=== PATIENT | female | born 1935 | race Caucasian/White ===

== ENCOUNTER 2018-06-13 16:00 | Inpatient (IN) | payer MEDICAID, MEDICARE ==
--- NOTE | 2018-06-13 17:07 | PCM.HP ---
H&P History of Present Illness - General Date of Service: 06/13/18 Source of Information: Patient, Other - History of Present Illness Initial Comments - Free Text/Narative: Patient presented by [facility] to ER for failure to thrive. commissary worker had been doing a vulnerable adult case with her. She been living with her grandchildren who are unable to take care of her or transport. She is basically sitting on the couch all day. Numerous scratches to her arms for a puppy that been playing with her. Doesn't sound like they're getting her up to toilet very much. She is getting maybe one meal a day with a meals to [employer] type program. She doesn't really have much for two complaints currently. She doesn't have any pain anywhere. She is on chronic Coumadin for history of DVT she has not had a recent INR the past couple months. She do basic chemistry in the ER which was normal. Past medical history skin cancer, shoulder pain, restless legs, vitreous detachment, peripheral neuropathy, obesity, osteoporosis, goiter, melanoma, ovarian cancer, impaired fasting glucose, DVT, gout, GERD, hypertension, peripheral edema, mild cognitive impairment, mild chronic kidney disease, diastolic heart failure, anxiety and depression, chronic anemia. Medications: Coumadin, nystatin powder, Zoloft, Requip, when necessary nitroglycerin, Toprol, Neurontin, Lasix, Pepcid, Tylenol, Payton lax, nocturnal oxygen. Allergies: She is intolerant to baclofen social history:she does not drink alcohol, remote smoking history, she'd boyfriend at [facility] then he -because of this she is not want return to long term there, she is a [id number] and grandchild locally here that she has some contact with. There is a sonFargo she doesn't have much contact with. Family history: Noncontributory Review of systems: Denies any headache or neck pain. Did have a recent fall but denies hitting her head or neck. Any significant trauma. Denies vision or hearing change that's new. Denies any new memory or mood changes, mild chronic depression. Denies chest pain or dyspnea. Denies abdominal pain. States urine and stools are normal. Endorses mild stable chronic peripheral edema. Chronic scratches to arms per HPI. Blood pressure 150/74, temperature 37, pulse 82, oxygen saturation 97% on room air. Alert and oriented female, pleasant and cooperative in no acute distress. Head is eight rheumatic or mucosa pink and moist. Heart and lungs clear to auscultation abdomen soft nontender. No gross pressure ulcers to back or buttock. 1+ pitting edema bilaterally. #1. Failure to thrive and vulnerable adult. She needs to be removed from this unsafe home environment. County and social economist been contacted. They're working on placement. Given limited mobility this would be long term most likely. We'll consult physical therapy regarding gait and ADLs. She otherwise appears largely cognitively intact. #2 She has a mildly super therapeutic INR which has not been monitored regularly secondary to above. We will hold at least next couple doses and monitor this. #3 Multiple scratches appear clean, wound cares per RN; no sign of pressure ulcer currently. Knees Pain Score (Numeric/FACES): 4 - Related Data Allergies/Adverse Reactions: Allergies Allergy/AdvReac Type Severity Reaction Status Date / Time baclofen AdvReac Intermediate Confusion Verified 06/13/18 15:06 Home Medications: Home Meds Gabapentin 300 mg PO BEDTIME 09/29/14 [History] Nitroglycerin [Nitrostat] 0.4 mg SL ASDIRECTED PRN 09/29/14 [History] Sertraline [Zoloft] 100 mg PO DAILY 09/29/14 [History] rOPINIRole HCl [Requip] 0.5 mg PO BEDTIME 09/30/14 [History] Calcium Carbonate [Tums Extra Strength] 750 mg PO TID PRN 03/02/16 [History] Gabapentin [Neurontin] 100 mg PO 08,12 03/02/16 [History] Docusate Sodium [Colace] 100 mg PO DAILY 09/07/17 [History] Furosemide 20 mg PO DAILY 09/07/17 [History] Metoprolol Succinate 25 mg PO DAILY 09/07/17 [History] Polyethylene Glycol 3350 [MiraLAX] 17 gm PO DAILY PRN 09/07/17 [History] Acetaminophen [Tylenol] 650 mg PO Q6H #0 09/11/17 [Rx] Sennosides/Docusate Sodium [Senna S Tablet] 1 each PO DAILY #30 tablet 09/11/17 [Rx] Famotidine 20 mg PO DAILY 06/13/18 [History] Nystatin [Nyamyc] 1 gm TOP BID 06/13/18 [History] Nystatin [Nystop] 1 applic TP BID PRN 06/13/18 [History] Warfarin Sodium [Jantoven] 5 mg PO ASDIRECTED 06/13/18 [History] Past Medical History HEENT History: Reports: Cataract, Impaired Vision Other HEENT History: bilat posterior vitreous detachment Cardiovascular History: Reports: Blood Clots/VTE/DVT, Heart Failure, Hypertension Other Cardiovascular History: 3+ pitting edema to lower legs and feet Respiratory History: Reports: COPD, Other (See Below) Other Respiratory History: Home O2 wears 1L/nc during the day and 3L/nc at night Gastrointestinal History: Reports: GERD Genitourinary History: Reports: Other (See Below) Other Genitourinary History: CKD STAGE III 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: Musculoskeletal History: Reports: Arthritis, Back Pain, Chronic, Gout, Osteoporosis Neurological History: Reports: Neuropathy, Peripheral, Other (See Below) Other Neuro History: Memory loss, cognitive defecit Psychiatric History: Reports: Anxiety, Depression Endocrine/Metabolic History: Reports: Obesity/BMI 30+, Other (See Below) Other Endocrine/Metabolic History: Non toxic multinodular goiter Hematologic History: Reports: Anemia Other Hematologic History: DVT Oncologic (Cancer) History: Reports: Malignant Melanoma, Ovarian, Squamous Cell Carcinoma Dermatologic History: Reports: Cellulitis, Other (See Below) Other Dermatologic History: Dermatochalasia, melanoma, squamous cell skin ca - Infectious Disease History Infectious Disease History: Reports: Chicken Pox, Measles, Mumps Other Infectious Disease History: E coli in 2011 - Past Surgical History HEENT Surgical History: Reports: Cataract Surgery GI Surgical History: Reports: Appendectomy, Cholecystectomy Musculoskeletal Surgical History: Reports: None Dermatological Surgical History: Reports: Skin Biopsy Social & Family History - Family History Family Medical History: Noncontributory Oncologic: Reports: Lung - Caffeine Use Caffeine Use: Reports: None H&P Review of Systems - Review of Systems: Review Of Systems: See Below Exam - Exam Exam: See Below - Vital Signs Vital Signs: Last Vital Signs Temp 36.9 C 06/13/18 16:49 Pulse 82 06/13/18 16:49 Resp 20 06/13/18 16:49 BP 150/74 H 06/13/18 16:49 Pulse Ox 97 06/13/18 16:49 Weight: 71.668 kg - Patient Data Result Diagrams: 06/13/18 14:48 Problem List Initiated/Reviewed/Updated: Yes Orders Last 24hrs: Active Orders 24 hr Category Date Time Status ALBUMIN [CHEM] Routine Lab 06/13/18 16:56 Ordered CBC WITH AUTO DIFF [HEME] Routine Lab 06/13/18 16:56 Ordered INR,PT,PROTHROMBIN TIME [COAG] Routine Lab 06/13/18 16:56 Ordered SEDIMENTATION RATE AUTO [HEME] Routine Lab 06/13/18 16:56 Ordered TSH ULTRASENSITIVE [CHEM] Routine Lab 06/13/18 16:56 Ordered VITAMIN B12 [REF] Routine Lab 06/13/18 16:56 Ordered
[2018-06-13] MEDS ORDERED: Miconazole 2% Top Powder 45 GM Container TOP PRN (19:23)
[2018-06-13] MEDS ORDERED: Polyethylene Glycol 3350 Powder 17 GM Packet PO PRN (19:24)
[2018-06-13] MEDS ORDERED: Warfarin 5 MG Tab PO SCH (19:30)
[2018-06-13] MEDS ORDERED: rOPINIRole 0.5 MG Tab PO SCH ×2 (20:00)
[2018-06-13] MEDS ORDERED: Gabapentin 300 MG Cap PO SCH (20:00)
[2018-06-13] MEDS: Acetaminophen 325 MG Tab PO SCH (20:48)
[2018-06-13] MEDS: Miconazole 2% Top Powder 45 GM Container TOP SCH (20:48)
[2018-06-13] MEDS: ROPINIROLE 0.5 MG PO SCH (20:48)
[2018-06-14] MEDS: Acetaminophen 325 MG Tab PO SCH ×4 (01:26→21:37)
[2018-06-14] MEDS ORDERED: Gabapentin 100 MG Cap PO SCH (08:00)
[2018-06-14] MEDS: [UNRECOGNIZED DRUG - OTHER] PO SCH (08:16)
[2018-06-14] MEDS: Docusate Sodium 100 MG Cap PO SCH (08:17)
[2018-06-14] MEDS: SERTRALINE 100 MG PO SCH (08:17)
[2018-06-14] MEDS: Famotidine 20 MG Tab PO SCH (08:17)
[2018-06-14] MEDS: Metoprolol Succinate 25 MG Tab.ER PO SCH (08:18)
[2018-06-14] MEDS: Miconazole 2% Top Powder 45 GM Container TOP SCH ×2 (08:18→21:37)
[2018-06-14] MEDS ORDERED: [UNRECOGNIZED DRUG - REMARK] SCH (12:00)
[2018-06-14] MEDS: GABAPENTIN 100 MG PO SCH ×2 (12:04→21:36)
[2018-06-14] MEDS ORDERED: rOPINIRole 0.5 MG Tab PO SCH (20:00)
[2018-06-14] MEDS: ROPINIROLE 0.5 MG PO SCH (21:35)
[2018-06-15] MEDS: Acetaminophen 325 MG Tab PO SCH ×4 (05:46→19:27)
[2018-06-15] MEDS: [UNRECOGNIZED DRUG - OTHER] PO SCH (07:42)
[2018-06-15] MEDS: Famotidine 20 MG Tab PO SCH (07:42)
[2018-06-15] MEDS: Docusate Sodium 100 MG Cap PO SCH (07:42)
[2018-06-15] MEDS: Metoprolol Succinate 25 MG Tab.ER PO SCH (07:43)
[2018-06-15] MEDS: GABAPENTIN 100 MG PO SCH ×3 (07:43→19:28)
[2018-06-15] MEDS: SERTRALINE 100 MG PO SCH (07:43)
[2018-06-15] MEDS: Miconazole 2% Top Powder 45 GM Container TOP SCH ×2 (07:44→19:27)
[2018-06-15] MEDS: ROPINIROLE 0.5 MG PO SCH (19:28)
[2018-06-16] MEDS: Acetaminophen 325 MG Tab PO SCH ×4 (02:50→20:47)
[2018-06-16] MEDS: Docusate Sodium 100 MG Cap PO SCH (07:33)
[2018-06-16] MEDS: Famotidine 20 MG Tab PO SCH (07:34)
[2018-06-16] MEDS: [UNRECOGNIZED DRUG - OTHER] PO SCH (07:34)
[2018-06-16] MEDS: SERTRALINE 100 MG PO SCH (07:34)
[2018-06-16] MEDS: Miconazole 2% Top Powder 45 GM Container TOP SCH ×2 (07:35→20:46)
[2018-06-16] MEDS: GABAPENTIN 100 MG PO SCH ×3 (07:35→20:45)
[2018-06-16] MEDS: Metoprolol Succinate 25 MG Tab.ER PO SCH (07:36)
[2018-06-16] MEDS ORDERED: Warfarin 5 MG Tab PO ONE (20:00)
[2018-06-16] MEDS: ROPINIROLE 0.5 MG PO SCH (20:45)
[2018-06-17] MEDS: Acetaminophen 325 MG Tab PO SCH ×3 (02:56→13:07)
[2018-06-17] MEDS: SERTRALINE 100 MG PO SCH (08:31)
[2018-06-17] MEDS: Metoprolol Succinate 25 MG Tab.ER PO SCH (08:31)
[2018-06-17] MEDS: Miconazole 2% Top Powder 45 GM Container TOP SCH (08:32)
[2018-06-17] MEDS: GABAPENTIN 100 MG PO SCH ×2 (08:32→13:08)
[2018-06-17] MEDS: Famotidine 20 MG Tab PO SCH (08:32)
[2018-06-17] MEDS: Docusate Sodium 100 MG Cap PO SCH (08:32)
[2018-06-17] MEDS: [UNRECOGNIZED DRUG - OTHER] PO SCH (08:32)
[2018-06-18] MEDS: Acetaminophen 325 MG Tab PO SCH ×5 (01:18→20:38)
[2018-06-18] MEDS: GABAPENTIN 100 MG PO SCH ×5 (01:19→20:43)
[2018-06-18] MEDS: ROPINIROLE 0.5 MG PO SCH ×3 (01:19→20:42)
[2018-06-18] MEDS: WARFARIN PO SCH (01:19)
[2018-06-18] MEDS: Miconazole 2% Top Powder 45 GM Container TOP SCH ×3 (01:20→20:38)
[2018-06-18] MEDS: [UNRECOGNIZED DRUG - OTHER] PO SCH (07:34)
[2018-06-18] MEDS: Metoprolol Succinate 25 MG Tab.ER PO SCH (07:34)
[2018-06-18] MEDS: SERTRALINE 100 MG PO SCH (07:34)
[2018-06-18] MEDS: Docusate Sodium 100 MG Cap PO SCH (07:35)
[2018-06-18] MEDS: Famotidine 20 MG Tab PO SCH (07:37)
[2018-06-18] MEDS: WARFARIN 5 MG PO SCH ×2 (20:40→20:44)
[2018-06-19] MEDS: Acetaminophen 325 MG Tab PO SCH ×6 (01:02→20:04)
[2018-06-19] MEDS: SERTRALINE 100 MG PO SCH (08:45)
[2018-06-19] MEDS: Docusate Sodium 100 MG Cap PO SCH (08:45)
[2018-06-19] MEDS: Metoprolol Succinate 25 MG Tab.ER PO SCH (08:45)
[2018-06-19] MEDS: Famotidine 20 MG Tab PO SCH (08:45)
[2018-06-19] MEDS: Miconazole 2% Top Powder 45 GM Container TOP SCH ×2 (08:46→20:04)
[2018-06-19] MEDS: [UNRECOGNIZED DRUG - OTHER] PO SCH (08:46)
[2018-06-19] MEDS: GABAPENTIN 100 MG PO SCH ×3 (08:46→20:05)
[2018-06-19] MEDS: ROPINIROLE 0.5 MG PO SCH (20:05)
[2018-06-19] MEDS: WARFARIN PO SCH (20:06)
[2018-06-20] MEDS: Acetaminophen 325 MG Tab PO SCH ×5 (00:59→19:53)
[2018-06-20] MEDS: Docusate Sodium 100 MG Cap PO SCH (07:41)
[2018-06-20] MEDS: Famotidine 20 MG Tab PO SCH (07:41)
[2018-06-20] MEDS: Metoprolol Succinate 25 MG Tab.ER PO SCH (07:43)
[2018-06-20] MEDS: GABAPENTIN 100 MG PO SCH ×3 (07:47→19:54)
[2018-06-20] MEDS: SERTRALINE 100 MG PO SCH (09:01)
[2018-06-20] MEDS: [UNRECOGNIZED DRUG - OTHER] PO SCH (09:01)
[2018-06-20] MEDS: Miconazole 2% Top Powder 45 GM Container TOP SCH ×2 (09:03→19:53)
[2018-06-20] MEDS: ROPINIROLE 0.5 MG PO SCH (19:54)
[2018-06-20] MEDS: WARFARIN 5 MG PO SCH (19:55)
[2018-06-21] MEDS: Acetaminophen 325 MG Tab PO SCH ×5 (01:32→21:00)
[2018-06-21] MEDS: Famotidine 20 MG Tab PO SCH (08:09)
[2018-06-21] MEDS: Metoprolol Succinate 25 MG Tab.ER PO SCH (08:09)
[2018-06-21] MEDS: Docusate Sodium 100 MG Cap PO SCH (08:09)
[2018-06-21] MEDS: [UNRECOGNIZED DRUG - OTHER] PO SCH (08:10)
[2018-06-21] MEDS: GABAPENTIN 100 MG PO SCH ×3 (08:10→21:00)
[2018-06-21] MEDS: SERTRALINE 100 MG PO SCH (08:10)
[2018-06-21] MEDS: Miconazole 2% Top Powder 45 GM Container TOP SCH ×2 (08:12→21:00)
[2018-06-21] MEDS: ROPINIROLE 0.5 MG PO SCH (21:00)
[2018-06-21] MEDS: WARFARIN PO SCH (21:00)
[2018-06-22] MEDS: Acetaminophen 325 MG Tab PO SCH ×4 (01:42→20:15)
[2018-06-22] MEDS: [UNRECOGNIZED DRUG - OTHER] PO SCH (08:07)
[2018-06-22] MEDS: Metoprolol Succinate 25 MG Tab.ER PO SCH (08:07)
[2018-06-22] MEDS: Famotidine 20 MG Tab PO SCH (08:07)
[2018-06-22] MEDS: SERTRALINE 100 MG PO SCH (08:07)
[2018-06-22] MEDS: GABAPENTIN 100 MG PO SCH ×3 (08:07→20:14)
[2018-06-22] MEDS: Docusate Sodium 100 MG Cap PO SCH (08:08)
[2018-06-22] MEDS: Miconazole 2% Top Powder 45 GM Container TOP SCH ×2 (08:08→20:13)
[2018-06-22] MEDS: ROPINIROLE 0.5 MG PO SCH (20:15)
[2018-06-22] MEDS: WARFARIN 5 MG PO SCH (20:17)
[2018-06-23] MEDS: Acetaminophen 325 MG Tab PO SCH ×4 (01:56→20:07)
[2018-06-23] MEDS: SERTRALINE 100 MG PO SCH (08:05)
[2018-06-23] MEDS: Docusate Sodium 100 MG Cap PO SCH (08:05)
[2018-06-23] MEDS: Famotidine 20 MG Tab PO SCH (08:05)
[2018-06-23] MEDS: GABAPENTIN 100 MG PO SCH ×3 (08:06→20:07)
[2018-06-23] MEDS: [UNRECOGNIZED DRUG - OTHER] PO SCH (08:06)
[2018-06-23] MEDS: Metoprolol Succinate 25 MG Tab.ER PO SCH (08:07)
[2018-06-23] MEDS: Miconazole 2% Top Powder 45 GM Container TOP SCH ×2 (08:08→20:08)
[2018-06-23] MEDS: ROPINIROLE 0.5 MG PO SCH (20:07)
[2018-06-23] MEDS: WARFARIN 5 MG PO SCH (20:09)
[2018-06-24] MEDS: Acetaminophen 325 MG Tab PO SCH ×4 (01:23→20:10)
[2018-06-24] MEDS: Docusate Sodium 100 MG Cap PO SCH (07:59)
[2018-06-24] MEDS: Famotidine 20 MG Tab PO SCH (07:59)
[2018-06-24] MEDS: [UNRECOGNIZED DRUG - OTHER] PO SCH (07:59)
[2018-06-24] MEDS: SERTRALINE 100 MG PO SCH (08:00)
[2018-06-24] MEDS: GABAPENTIN 100 MG PO SCH ×3 (08:00→20:22)
[2018-06-24] MEDS: Miconazole 2% Top Powder 45 GM Container TOP SCH ×2 (08:01→20:20)
[2018-06-24] MEDS: Metoprolol Succinate 25 MG Tab.ER PO SCH (08:02)
[2018-06-24] MEDS: ROPINIROLE 0.5 MG PO SCH (20:20)
[2018-06-24] MEDS: WARFARIN PO SCH (20:21)
[2018-06-25] MEDS: Acetaminophen 325 MG Tab PO SCH ×4 (01:41→19:46)
[2018-06-25] MEDS: Docusate Sodium 100 MG Cap PO SCH (08:14)
[2018-06-25] MEDS: Famotidine 20 MG Tab PO SCH (08:14)
[2018-06-25] MEDS: GABAPENTIN 100 MG PO SCH ×3 (08:14→19:46)
[2018-06-25] MEDS: SERTRALINE 100 MG PO SCH (08:14)
[2018-06-25] MEDS: [UNRECOGNIZED DRUG - OTHER] PO SCH (08:15)
[2018-06-25] MEDS: Miconazole 2% Top Powder 45 GM Container TOP SCH ×2 (08:16→19:46)
[2018-06-25] MEDS: Metoprolol Succinate 25 MG Tab.ER PO SCH (08:16)
[2018-06-25] MEDS: ROPINIROLE 0.5 MG PO SCH (19:47)
[2018-06-26] MEDS: Acetaminophen 325 MG Tab PO SCH ×4 (02:04→19:59)
[2018-06-26] MEDS: GABAPENTIN 100 MG PO SCH ×3 (07:58→20:01)
[2018-06-26] MEDS: Miconazole 2% Top Powder 45 GM Container TOP SCH ×2 (07:58→20:15)
[2018-06-26] MEDS: Famotidine 20 MG Tab PO SCH (07:59)
[2018-06-26] MEDS: SERTRALINE 100 MG PO SCH (07:59)
[2018-06-26] MEDS: Docusate Sodium 100 MG Cap PO SCH (08:00)
[2018-06-26] MEDS: [UNRECOGNIZED DRUG - OTHER] PO SCH (08:00)
[2018-06-26] MEDS: Metoprolol Succinate 25 MG Tab.ER PO SCH (08:00)
[2018-06-26] MEDS: ROPINIROLE 0.5 MG PO SCH (19:59)
[2018-06-27] MEDS: Acetaminophen 325 MG Tab PO SCH ×4 (04:15→19:03)
[2018-06-27] MEDS: Famotidine 20 MG Tab PO SCH (07:50)
[2018-06-27] MEDS: SERTRALINE 100 MG PO SCH (07:50)
[2018-06-27] MEDS: Metoprolol Succinate 25 MG Tab.ER PO SCH (07:51)
[2018-06-27] MEDS: [UNRECOGNIZED DRUG - OTHER] PO SCH (07:52)
[2018-06-27] MEDS: GABAPENTIN 100 MG PO SCH ×3 (07:52→19:03)
[2018-06-27] MEDS: Docusate Sodium 100 MG Cap PO SCH (07:52)
[2018-06-27] MEDS: Miconazole 2% Top Powder 45 GM Container TOP SCH ×2 (07:52→19:03)
[2018-06-27] MEDS: ROPINIROLE 0.5 MG PO SCH (19:02)
[2018-06-27] MEDS: WARFARIN 5 MG PO SCH (19:04)
[2018-06-27] MEDS: Calcium Carbonate 750 MG Tab.Chew PO PRN (19:04)
[2018-06-28] MEDS: Acetaminophen 325 MG Tab PO SCH ×4 (03:33→20:45)
[2018-06-28] MEDS: Docusate Sodium 100 MG Cap PO SCH (08:00)
[2018-06-28] MEDS: Metoprolol Succinate 25 MG Tab.ER PO SCH (08:00)
[2018-06-28] MEDS: SERTRALINE 100 MG PO SCH (08:01)
[2018-06-28] MEDS: GABAPENTIN 100 MG PO SCH ×3 (08:01→19:48)
[2018-06-28] MEDS: [UNRECOGNIZED DRUG - OTHER] PO SCH (08:01)
[2018-06-28] MEDS: Miconazole 2% Top Powder 45 GM Container TOP SCH ×2 (08:02→19:48)
[2018-06-28] MEDS: Famotidine 20 MG Tab PO SCH (08:04)
[2018-06-28] MEDS: ROPINIROLE 0.5 MG PO SCH (19:48)
[2018-06-28] MEDS ORDERED: WARFARIN PO SCH (20:00)
[2018-06-29] MEDS: Acetaminophen 325 MG Tab PO SCH ×4 (02:35→19:32)
[2018-06-29] MEDS: Docusate Sodium 100 MG Cap PO SCH (07:48)
[2018-06-29] MEDS: GABAPENTIN 100 MG PO SCH ×3 (07:50→19:32)
[2018-06-29] MEDS: [UNRECOGNIZED DRUG - OTHER] PO SCH (07:50)
[2018-06-29] MEDS: Famotidine 20 MG Tab PO SCH (07:51)
[2018-06-29] MEDS: SERTRALINE 100 MG PO SCH (07:54)
[2018-06-29] MEDS: Miconazole 2% Top Powder 45 GM Container TOP SCH ×2 (07:56→19:36)
[2018-06-29] MEDS: Metoprolol Succinate 25 MG Tab.ER PO SCH (07:57)
[2018-06-29] MEDS: WARFARIN 5 MG PO SCH (19:33)
[2018-06-29] MEDS: ROPINIROLE 0.5 MG PO SCH (19:33)
[2018-06-29] MEDS ORDERED: WARFARIN PO ONE (20:00)
[2018-06-30] MEDS: Acetaminophen 325 MG Tab PO SCH ×5 (04:50→20:24)
[2018-06-30] MEDS: Docusate Sodium 100 MG Cap PO SCH (07:47)
[2018-06-30] MEDS: Miconazole 2% Top Powder 45 GM Container TOP SCH ×2 (07:47→20:23)
[2018-06-30] MEDS: [UNRECOGNIZED DRUG - OTHER] PO SCH (07:48)
[2018-06-30] MEDS: Famotidine 20 MG Tab PO SCH (07:48)
[2018-06-30] MEDS: GABAPENTIN 100 MG PO SCH ×3 (07:48→20:21)
[2018-06-30] MEDS: SERTRALINE 100 MG PO SCH (07:49)
[2018-06-30] MEDS: Metoprolol Succinate 25 MG Tab.ER PO SCH (07:54)
[2018-06-30] MEDS ORDERED: WARFARIN 5 MG PO ONE (20:00)
[2018-06-30] MEDS: ROPINIROLE 0.5 MG PO SCH (20:22)
[2018-06-30] MEDS: WARFARIN 5 MG PO SCH (20:22)
[2018-07-01] MEDS: Acetaminophen 325 MG Tab PO SCH ×4 (03:12→20:28)
[2018-07-01] MEDS: Metoprolol Succinate 25 MG Tab.ER PO SCH (08:59)
[2018-07-01] MEDS: Famotidine 20 MG Tab PO SCH (08:59)
[2018-07-01] MEDS: [UNRECOGNIZED DRUG - OTHER] PO SCH (08:59)
[2018-07-01] MEDS: Docusate Sodium 100 MG Cap PO SCH (09:00)
[2018-07-01] MEDS: SERTRALINE 100 MG PO SCH (09:00)
[2018-07-01] MEDS: GABAPENTIN 100 MG PO SCH ×3 (09:00→20:29)
[2018-07-01] MEDS: Miconazole 2% Top Powder 45 GM Container TOP SCH (09:00)
[2018-07-01] MEDS ORDERED: WARFARIN 5 MG PO ONE (20:00)
[2018-07-01] MEDS: ROPINIROLE 0.5 MG PO SCH (20:29)
[2018-07-02] MEDS: Acetaminophen 325 MG Tab PO SCH ×4 (01:31→19:33)
[2018-07-02] MEDS: Famotidine 20 MG Tab PO SCH (09:31)
[2018-07-02] MEDS: [UNRECOGNIZED DRUG - OTHER] PO SCH (09:31)
[2018-07-02] MEDS: Docusate Sodium 100 MG Cap PO SCH (09:31)
[2018-07-02] MEDS: SERTRALINE 100 MG PO SCH (09:32)
[2018-07-02] MEDS: Metoprolol Succinate 25 MG Tab.ER PO SCH (09:32)
[2018-07-02] MEDS: GABAPENTIN 100 MG PO SCH ×3 (09:32→19:34)
[2018-07-02] MEDS: ROPINIROLE 0.5 MG PO SCH (19:33)
[2018-07-02] MEDS: WARFARIN 5 MG PO SCH (19:41)
[2018-07-02] MEDS ORDERED: WARFARIN 5 MG PO ONE (20:00)
[2018-07-03] MEDS: Acetaminophen 325 MG Tab PO SCH ×5 (00:05→20:03)
[2018-07-03] MEDS: Famotidine 20 MG Tab PO SCH (07:32)
[2018-07-03] MEDS: [UNRECOGNIZED DRUG - OTHER] PO SCH (07:32)
[2018-07-03] MEDS: Docusate Sodium 100 MG Cap PO SCH (07:32)
[2018-07-03] MEDS: SERTRALINE 100 MG PO SCH (07:32)
[2018-07-03] MEDS: Metoprolol Succinate 25 MG Tab.ER PO SCH (07:33)
[2018-07-03] MEDS: GABAPENTIN 100 MG PO SCH ×3 (07:33→20:03)
[2018-07-03] MEDS: ROPINIROLE 0.5 MG PO SCH (20:03)
[2018-07-04] MEDS: Acetaminophen 325 MG Tab PO SCH ×4 (01:27→19:16)
[2018-07-04] MEDS: Famotidine 20 MG Tab PO SCH (08:17)
[2018-07-04] MEDS: Docusate Sodium 100 MG Cap PO SCH (08:17)
[2018-07-04] MEDS: SERTRALINE 100 MG PO SCH (08:17)
[2018-07-04] MEDS: GABAPENTIN 100 MG PO SCH ×3 (08:17→19:16)
[2018-07-04] MEDS: [UNRECOGNIZED DRUG - OTHER] PO SCH (08:18)
[2018-07-04] MEDS: Metoprolol Succinate 25 MG Tab.ER PO SCH (08:18)
[2018-07-04] MEDS: ROPINIROLE 0.5 MG PO SCH (19:16)
[2018-07-05] MEDS: Acetaminophen 325 MG Tab PO SCH ×4 (01:34→19:54)
[2018-07-05] MEDS: Docusate Sodium 100 MG Cap PO SCH (07:25)
[2018-07-05] MEDS: Famotidine 20 MG Tab PO SCH (07:25)
[2018-07-05] MEDS: [UNRECOGNIZED DRUG - OTHER] PO SCH (07:26)
[2018-07-05] MEDS: GABAPENTIN 100 MG PO SCH ×3 (07:27→19:54)
[2018-07-05] MEDS: Metoprolol Succinate 25 MG Tab.ER PO SCH (07:27)
[2018-07-05] MEDS: SERTRALINE 100 MG PO SCH (07:28)
[2018-07-05] MEDS: ROPINIROLE 0.5 MG PO SCH (19:54)
[2018-07-05] MEDS ORDERED: WARFARIN 5 MG PO ONE (20:00)
[2018-07-06] MEDS: Acetaminophen 325 MG Tab PO SCH ×4 (02:02→19:52)
[2018-07-06] MEDS: Famotidine 20 MG Tab PO SCH (07:12)
[2018-07-06] MEDS: Docusate Sodium 100 MG Cap PO SCH (07:12)
[2018-07-06] MEDS: [UNRECOGNIZED DRUG - OTHER] PO SCH (07:13)
[2018-07-06] MEDS: Metoprolol Succinate 25 MG Tab.ER PO SCH (07:13)
[2018-07-06] MEDS: SERTRALINE 100 MG PO SCH (07:13)
[2018-07-06] MEDS: GABAPENTIN 100 MG PO SCH ×3 (07:13→19:49)
[2018-07-06] MEDS: ROPINIROLE 0.5 MG PO SCH (19:49)
[2018-07-06] MEDS ORDERED: WARFARIN 5 MG PO ONE (20:00)
[2018-07-07] MEDS: Acetaminophen 325 MG Tab PO SCH ×4 (03:36→19:22)
[2018-07-07] MEDS: GABAPENTIN 100 MG PO SCH ×3 (07:51→19:21)
[2018-07-07] MEDS: Metoprolol Succinate 25 MG Tab.ER PO SCH (07:51)
[2018-07-07] MEDS: Docusate Sodium 100 MG Cap PO SCH (07:51)
[2018-07-07] MEDS: Famotidine 20 MG Tab PO SCH (07:51)
[2018-07-07] MEDS: [UNRECOGNIZED DRUG - OTHER] PO SCH (07:52)
[2018-07-07] MEDS: SERTRALINE 100 MG PO SCH (07:52)
[2018-07-07] MEDS: ROPINIROLE 0.5 MG PO SCH (19:21)
[2018-07-07] MEDS ORDERED: WARFARIN 5 MG PO ONE (20:00)
[2018-07-08] MEDS: Acetaminophen 325 MG Tab PO SCH ×4 (03:21→20:03)
[2018-07-08] MEDS: Docusate Sodium 100 MG Cap PO SCH (07:59)
[2018-07-08] MEDS: Metoprolol Succinate 25 MG Tab.ER PO SCH (07:59)
[2018-07-08] MEDS: Famotidine 20 MG Tab PO SCH (07:59)
[2018-07-08] MEDS: [UNRECOGNIZED DRUG - OTHER] PO SCH (08:00)
[2018-07-08] MEDS: SERTRALINE 100 MG PO SCH (08:00)
[2018-07-08] MEDS: GABAPENTIN 100 MG PO SCH ×3 (08:52→20:02)
[2018-07-08] MEDS ORDERED: WARFARIN 5 MG PO ONE (20:00)
[2018-07-08] MEDS: ROPINIROLE 0.5 MG PO SCH (20:03)
[2018-07-09] MEDS: Acetaminophen 325 MG Tab PO SCH ×4 (03:39→20:05)
[2018-07-09] MEDS: [UNRECOGNIZED DRUG - OTHER] PO SCH (07:33)
[2018-07-09] MEDS: SERTRALINE 100 MG PO SCH (07:33)
[2018-07-09] MEDS: Famotidine 20 MG Tab PO SCH (07:33)
[2018-07-09] MEDS: Docusate Sodium 100 MG Cap PO SCH (07:33)
[2018-07-09] MEDS: GABAPENTIN 100 MG PO SCH ×3 (07:34→20:05)
[2018-07-09] MEDS: Metoprolol Succinate 25 MG Tab.ER PO SCH (07:34)
[2018-07-09] MEDS: ROPINIROLE 0.5 MG PO SCH (20:04)
[2018-07-09] MEDS: WARFARIN 5 MG PO SCH (20:05)
[2018-07-10] MEDS: Acetaminophen 325 MG Tab PO SCH ×5 (02:55→19:54)
[2018-07-10] MEDS: Metoprolol Succinate 25 MG Tab.ER PO SCH (07:12)
[2018-07-10] MEDS: SERTRALINE 100 MG PO SCH (07:12)
[2018-07-10] MEDS: [UNRECOGNIZED DRUG - OTHER] PO SCH (07:12)
[2018-07-10] MEDS: GABAPENTIN 100 MG PO SCH ×4 (07:12→19:50)
[2018-07-10] MEDS: Famotidine 20 MG Tab PO SCH (07:13)
[2018-07-10] MEDS: Docusate Sodium 100 MG Cap PO SCH (07:13)
[2018-07-10] MEDS: WARFARIN PO SCH (19:48)
[2018-07-10] MEDS: ROPINIROLE 0.5 MG PO SCH (19:50)
[2018-07-11] MEDS: Acetaminophen 325 MG Tab PO SCH ×4 (03:28→20:25)
[2018-07-11] MEDS: GABAPENTIN 100 MG PO SCH ×3 (09:30→20:27)
[2018-07-11] MEDS: SERTRALINE 100 MG PO SCH (09:30)
[2018-07-11] MEDS: [UNRECOGNIZED DRUG - OTHER] PO SCH (09:30)
[2018-07-11] MEDS: Famotidine 20 MG Tab PO SCH (09:31)
[2018-07-11] MEDS: Metoprolol Succinate 25 MG Tab.ER PO SCH (09:31)
[2018-07-11] MEDS: Docusate Sodium 100 MG Cap PO SCH (09:37)
[2018-07-11] MEDS: ROPINIROLE 0.5 MG PO SCH (19:15)
[2018-07-11] MEDS: WARFARIN 5 MG PO SCH (20:32)
[2018-07-12] MEDS: Acetaminophen 325 MG Tab PO SCH ×4 (04:42→20:04)
[2018-07-12] MEDS: SERTRALINE 100 MG PO SCH (09:08)
[2018-07-12] MEDS: GABAPENTIN 100 MG PO SCH ×3 (09:08→20:04)
[2018-07-12] MEDS: Metoprolol Succinate 25 MG Tab.ER PO SCH (09:08)
[2018-07-12] MEDS: Docusate Sodium 100 MG Cap PO SCH (09:08)
[2018-07-12] MEDS: [UNRECOGNIZED DRUG - OTHER] PO SCH (09:08)
[2018-07-12] MEDS: Famotidine 20 MG Tab PO SCH (09:09)
[2018-07-12] MEDS: Melatonin 3 MG Tab PO SCH (20:03)
[2018-07-12] MEDS: WARFARIN PO SCH (20:03)
[2018-07-12] MEDS: ROPINIROLE 0.5 MG PO SCH (20:04)
[2018-07-13] MEDS: Acetaminophen 325 MG Tab PO SCH ×4 (02:08→20:21)
[2018-07-13] MEDS: Famotidine 20 MG Tab PO SCH (08:27)
[2018-07-13] MEDS: [UNRECOGNIZED DRUG - OTHER] PO SCH (08:28)
[2018-07-13] MEDS: GABAPENTIN 100 MG PO SCH ×3 (08:28→20:21)
[2018-07-13] MEDS: SERTRALINE 100 MG PO SCH (08:28)
[2018-07-13] MEDS: Metoprolol Succinate 25 MG Tab.ER PO SCH (08:28)
[2018-07-13] MEDS: Docusate Sodium 100 MG Cap PO SCH (08:29)
[2018-07-13] MEDS ORDERED: WARFARIN PO ONE (20:00)
[2018-07-13] MEDS: WARFARIN 5 MG PO SCH (20:20)
[2018-07-13] MEDS: ROPINIROLE 0.5 MG PO SCH (20:21)
[2018-07-13] MEDS: Melatonin 3 MG Tab PO SCH (20:21)
[2018-07-14] MEDS: Acetaminophen 325 MG Tab PO SCH ×3 (10:44→19:44)
[2018-07-14] MEDS: [UNRECOGNIZED DRUG - OTHER] PO SCH (10:44)
[2018-07-14] MEDS: Docusate Sodium 100 MG Cap PO SCH (10:44)
[2018-07-14] MEDS: SERTRALINE 100 MG PO SCH (10:45)
[2018-07-14] MEDS: Metoprolol Succinate 25 MG Tab.ER PO SCH (10:45)
[2018-07-14] MEDS: Famotidine 20 MG Tab PO SCH (10:45)
[2018-07-14] MEDS: GABAPENTIN 100 MG PO SCH ×3 (10:45→19:43)
[2018-07-14] MEDS: ROPINIROLE 0.5 MG PO SCH (19:44)
[2018-07-14] MEDS: Melatonin 3 MG Tab PO SCH (19:44)
[2018-07-14] MEDS ORDERED: WARFARIN 5 MG PO ONE (20:00)
[2018-07-15] MEDS: Acetaminophen 325 MG Tab PO SCH ×4 (02:07→20:15)
[2018-07-15] MEDS: GABAPENTIN 100 MG PO SCH ×3 (08:12→20:14)
[2018-07-15] MEDS: Metoprolol Succinate 25 MG Tab.ER PO SCH (08:12)
[2018-07-15] MEDS: SERTRALINE 100 MG PO SCH (08:12)
[2018-07-15] MEDS: [UNRECOGNIZED DRUG - OTHER] PO SCH (08:12)
[2018-07-15] MEDS: Docusate Sodium 100 MG Cap PO SCH (08:13)
[2018-07-15] MEDS: Famotidine 20 MG Tab PO SCH (08:13)
[2018-07-15] MEDS ORDERED: Barium Sulfate 98% Powder for Susp 340 GM Bottle ONE (10:00)
[2018-07-15] MEDS ORDERED: Barium Sulfate 60% w/w Esophageal Crm 454 GM Tube PO ONE (10:00)
--- NOTE | 2018-07-15 14:06 | CR ---
[id number] RAD/RAD Video Swallow Study Exam: RAD Video Swallow Study Clinical Data: DIFFICULTY SWALLOWING COMPARISON: NO PREVIOUS SIMILAR EXAM IS AVAILABLE FINDINGS: The exam was performed by a certified technologist and speech pathologist in the patient's hometown. Penetration was seen in the piriform sinuses. Residuals were present. No aspiration was seen. IMPRESSION: PATIENT CONSIDERED AT MODERATE RISK FOR ASPIRATION PNEUMONIA. Taras Abad MD 07/15/18 1644 Thank you for allowing us to participate in the care of your patient.
[2018-07-15] MEDS ORDERED: WARFARIN 5 MG PO ONE (20:00)
[2018-07-15] MEDS: ROPINIROLE 0.5 MG PO SCH (20:15)
[2018-07-15] MEDS: Melatonin 3 MG Tab PO SCH (20:15)
[2018-07-16] MEDS: Acetaminophen 325 MG Tab PO SCH ×4 (02:30→19:45)
[2018-07-16] MEDS: Metoprolol Succinate 25 MG Tab.ER PO SCH (09:17)
[2018-07-16] MEDS: Docusate Sodium 100 MG Cap PO SCH (09:17)
[2018-07-16] MEDS: [UNRECOGNIZED DRUG - OTHER] PO SCH (09:17)
[2018-07-16] MEDS: GABAPENTIN 100 MG PO SCH ×3 (09:19→19:46)
[2018-07-16] MEDS: SERTRALINE 100 MG PO SCH (09:19)
[2018-07-16] MEDS: Famotidine 20 MG Tab PO SCH (09:21)
[2018-07-16] MEDS: ROPINIROLE 0.5 MG PO SCH (19:46)
[2018-07-16] MEDS: Melatonin 3 MG Tab PO SCH (19:46)
[2018-07-17] MEDS: Acetaminophen 325 MG Tab PO SCH ×4 (02:36→19:38)
[2018-07-17] MEDS: SERTRALINE 100 MG PO SCH (07:39)
[2018-07-17] MEDS: Famotidine 20 MG Tab PO SCH (07:39)
[2018-07-17] MEDS: Metoprolol Succinate 25 MG Tab.ER PO SCH (07:39)
[2018-07-17] MEDS: [UNRECOGNIZED DRUG - OTHER] PO SCH (07:39)
[2018-07-17] MEDS: GABAPENTIN 100 MG PO SCH ×3 (07:39→19:37)
[2018-07-17] MEDS: Docusate Sodium 100 MG Cap PO SCH (07:40)
[2018-07-17] MEDS: ROPINIROLE 0.5 MG PO SCH (19:37)
[2018-07-17] MEDS: Melatonin 3 MG Tab PO SCH (19:43)
[2018-07-17] MEDS ORDERED: Warfarin 2.5 MG Tab PO SCH (20:00)
[2018-07-18] MEDS: Acetaminophen 325 MG Tab PO SCH ×4 (06:11→20:38)
[2018-07-18] MEDS: Famotidine 20 MG Tab PO SCH (08:13)
[2018-07-18] MEDS: [UNRECOGNIZED DRUG - OTHER] PO SCH (08:14)
[2018-07-18] MEDS: Metoprolol Succinate 25 MG Tab.ER PO SCH (08:14)
[2018-07-18] MEDS: Docusate Sodium 100 MG Cap PO SCH (08:14)
[2018-07-18] MEDS: GABAPENTIN 100 MG PO SCH ×3 (08:14→20:39)
[2018-07-18] MEDS: SERTRALINE 100 MG PO SCH (08:14)
[2018-07-18] MEDS ORDERED: Warfarin 2.5 MG Tab PO ONE (20:00)
[2018-07-18] MEDS: Melatonin 3 MG Tab PO SCH (20:38)
[2018-07-18] MEDS: ROPINIROLE 0.5 MG PO SCH (20:39)
[2018-07-19] MEDS: Acetaminophen 325 MG Tab PO SCH ×4 (02:38→20:06)
[2018-07-19] MEDS: Docusate Sodium 100 MG Cap PO SCH (07:48)
[2018-07-19] MEDS: Famotidine 20 MG Tab PO SCH (07:48)
[2018-07-19] MEDS: [UNRECOGNIZED DRUG - OTHER] PO SCH (07:48)
[2018-07-19] MEDS: GABAPENTIN 100 MG PO SCH ×3 (07:48→20:02)
[2018-07-19] MEDS: SERTRALINE 100 MG PO SCH (07:48)
[2018-07-19] MEDS: Metoprolol Succinate 25 MG Tab.ER PO SCH (07:49)
[2018-07-19] MEDS: Cephalexin 500 MG Cap PO SCH ×2 (14:28→20:00)
[2018-07-19] MEDS: ROPINIROLE 0.5 MG PO SCH (19:58)
[2018-07-19] MEDS: Melatonin 3 MG Tab PO SCH (20:07)
[2018-07-20] MEDS: Acetaminophen 325 MG Tab PO SCH ×4 (03:18→21:00)
[2018-07-20] MEDS: GABAPENTIN 100 MG PO SCH ×3 (08:44→20:59)
[2018-07-20] MEDS: SERTRALINE 100 MG PO SCH (08:44)
[2018-07-20] MEDS: [UNRECOGNIZED DRUG - OTHER] PO SCH (08:45)
[2018-07-20] MEDS: Metoprolol Succinate 25 MG Tab.ER PO SCH (08:45)
[2018-07-20] MEDS: Docusate Sodium 100 MG Cap PO SCH (08:50)
[2018-07-20] MEDS: Cephalexin 500 MG Cap PO SCH ×2 (08:50→20:59)
[2018-07-20] MEDS: Famotidine 20 MG Tab PO SCH (08:50)
[2018-07-20] MEDS: ROPINIROLE 0.5 MG PO SCH (21:00)
[2018-07-20] MEDS: Melatonin 3 MG Tab PO SCH (21:00)
[2018-07-21] MEDS: Acetaminophen 325 MG Tab PO SCH ×4 (01:43→20:21)
[2018-07-21] MEDS: Famotidine 20 MG Tab PO SCH (09:56)
[2018-07-21] MEDS: Cephalexin 500 MG Cap PO SCH ×2 (09:56→20:21)
[2018-07-21] MEDS: Docusate Sodium 100 MG Cap PO SCH (09:57)
[2018-07-21] MEDS: GABAPENTIN 100 MG PO SCH ×3 (09:57→20:22)
[2018-07-21] MEDS: SERTRALINE 100 MG PO SCH (09:57)
[2018-07-21] MEDS: [UNRECOGNIZED DRUG - OTHER] PO SCH (09:57)
[2018-07-21] MEDS: Metoprolol Succinate 25 MG Tab.ER PO SCH (09:58)
[2018-07-21] MEDS: Melatonin 3 MG Tab PO SCH (20:22)
[2018-07-21] MEDS: ROPINIROLE 0.5 MG PO SCH (20:22)
[2018-07-22] MEDS: Acetaminophen 325 MG Tab PO SCH ×4 (02:35→19:49)
[2018-07-22] MEDS: Docusate Sodium 100 MG Cap PO SCH (07:33)
[2018-07-22] MEDS: SERTRALINE 100 MG PO SCH (07:33)
[2018-07-22] MEDS: GABAPENTIN 100 MG PO SCH ×3 (07:33→19:51)
[2018-07-22] MEDS: Cephalexin 500 MG Cap PO SCH ×2 (07:33→19:50)
[2018-07-22] MEDS: Famotidine 20 MG Tab PO SCH (07:33)
[2018-07-22] MEDS: Metoprolol Succinate 25 MG Tab.ER PO SCH (07:36)
[2018-07-22] MEDS: [UNRECOGNIZED DRUG - OTHER] PO SCH (07:37)
[2018-07-22] MEDS: ROPINIROLE 0.5 MG PO SCH (19:46)
[2018-07-22] MEDS: Melatonin 3 MG Tab PO SCH (19:49)
[2018-07-22] MEDS: WARFARIN PO SCH (19:52)
[2018-07-23] MEDS: Acetaminophen 325 MG Tab PO SCH ×4 (02:15→19:57)
[2018-07-23] MEDS: Famotidine 20 MG Tab PO SCH (08:01)
[2018-07-23] MEDS: Docusate Sodium 100 MG Cap PO SCH (08:01)
[2018-07-23] MEDS: Cephalexin 500 MG Cap PO SCH ×2 (08:01→19:57)
[2018-07-23] MEDS: [UNRECOGNIZED DRUG - OTHER] PO SCH (08:02)
[2018-07-23] MEDS: GABAPENTIN 100 MG PO SCH ×3 (08:02→19:58)
[2018-07-23] MEDS: SERTRALINE 100 MG PO SCH (08:04)
[2018-07-23] MEDS: Metoprolol Succinate 25 MG Tab.ER PO SCH (08:05)
[2018-07-23] MEDS: Melatonin 3 MG Tab PO SCH (19:57)
[2018-07-23] MEDS: WARFARIN 5 MG PO SCH (19:58)
[2018-07-23] MEDS: ROPINIROLE 0.5 MG PO SCH (19:58)
[2018-07-24] MEDS: Acetaminophen 325 MG Tab PO SCH ×4 (03:26→19:56)
[2018-07-24] MEDS: [UNRECOGNIZED DRUG - OTHER] PO SCH (09:09)
[2018-07-24] MEDS: Metoprolol Succinate 25 MG Tab.ER PO SCH (09:09)
[2018-07-24] MEDS: SERTRALINE 100 MG PO SCH (09:09)
[2018-07-24] MEDS: GABAPENTIN 100 MG PO SCH ×3 (09:09→19:57)
[2018-07-24] MEDS: Famotidine 20 MG Tab PO SCH (09:12)
[2018-07-24] MEDS: Docusate Sodium 100 MG Cap PO SCH (09:12)
[2018-07-24] MEDS: Melatonin 3 MG Tab PO SCH (19:56)
[2018-07-24] MEDS: ROPINIROLE 0.5 MG PO SCH (19:57)
[2018-07-24] MEDS: WARFARIN PO SCH (19:58)
[2018-07-25] MEDS: Acetaminophen 325 MG Tab PO SCH ×4 (04:10→20:01)
[2018-07-25] MEDS: Metoprolol Succinate 25 MG Tab.ER PO SCH (07:56)
[2018-07-25] MEDS: GABAPENTIN 100 MG PO SCH ×3 (07:56→20:02)
[2018-07-25] MEDS: SERTRALINE 100 MG PO SCH (07:56)
[2018-07-25] MEDS: Famotidine 20 MG Tab PO SCH (07:56)
[2018-07-25] MEDS: Docusate Sodium 100 MG Cap PO SCH (07:56)
[2018-07-25] MEDS: [UNRECOGNIZED DRUG - OTHER] PO SCH (07:57)
[2018-07-25] MEDS: Melatonin 3 MG Tab PO SCH (20:01)
[2018-07-25] MEDS: ROPINIROLE 0.5 MG PO SCH (20:02)
[2018-07-25] MEDS: WARFARIN 5 MG PO SCH (20:02)
[2018-07-26] MEDS: Acetaminophen 325 MG Tab PO SCH ×4 (02:29→20:41)
[2018-07-26] MEDS: [UNRECOGNIZED DRUG - OTHER] PO SCH (07:06)
[2018-07-26] MEDS: SERTRALINE 100 MG PO SCH (07:09)
[2018-07-26] MEDS: Metoprolol Succinate 25 MG Tab.ER PO SCH (07:09)
[2018-07-26] MEDS: GABAPENTIN 100 MG PO SCH ×3 (07:09→20:42)
[2018-07-26] MEDS: Famotidine 20 MG Tab PO SCH (07:11)
[2018-07-26] MEDS: Docusate Sodium 100 MG Cap PO SCH (07:11)
[2018-07-26] MEDS: Melatonin 3 MG Tab PO SCH (20:42)
[2018-07-26] MEDS: ROPINIROLE 0.5 MG PO SCH (20:42)
[2018-07-26] MEDS: WARFARIN PO SCH (20:43)
[2018-07-27] MEDS: Acetaminophen 325 MG Tab PO SCH ×4 (02:08→19:26)
[2018-07-27] MEDS: GABAPENTIN 100 MG PO SCH ×3 (08:09→19:27)
[2018-07-27] MEDS: SERTRALINE 100 MG PO SCH (08:10)
[2018-07-27] MEDS: Docusate Sodium 100 MG Cap PO SCH (08:10)
[2018-07-27] MEDS: Famotidine 20 MG Tab PO SCH (08:10)
[2018-07-27] MEDS: [UNRECOGNIZED DRUG - OTHER] PO SCH (08:10)
[2018-07-27] MEDS: Metoprolol Succinate 25 MG Tab.ER PO SCH (08:11)
[2018-07-27] MEDS: Melatonin 3 MG Tab PO SCH (19:26)
[2018-07-27] MEDS: ROPINIROLE 0.5 MG PO SCH (19:27)
[2018-07-27] MEDS: WARFARIN 5 MG PO SCH (19:28)
[2018-07-28] MEDS: Acetaminophen 325 MG Tab PO SCH ×4 (05:22→20:00)
[2018-07-28] MEDS: SERTRALINE 100 MG PO SCH (07:55)
[2018-07-28] MEDS: GABAPENTIN 100 MG PO SCH ×3 (07:55→19:59)
[2018-07-28] MEDS: [UNRECOGNIZED DRUG - OTHER] PO SCH (07:55)
[2018-07-28] MEDS: Docusate Sodium 100 MG Cap PO SCH (07:56)
[2018-07-28] MEDS: Famotidine 20 MG Tab PO SCH (07:57)
[2018-07-28] MEDS: Metoprolol Succinate 25 MG Tab.ER PO SCH (07:58)
[2018-07-28] MEDS: Melatonin 3 MG Tab PO SCH (19:57)
[2018-07-28] MEDS: WARFARIN 5 MG PO SCH (19:58)
[2018-07-28] MEDS: ROPINIROLE 0.5 MG PO SCH (20:00)
[2018-07-29] MEDS: Acetaminophen 325 MG Tab PO SCH ×4 (04:00→19:48)
[2018-07-29] MEDS: Metoprolol Succinate 25 MG Tab.ER PO SCH (07:52)
[2018-07-29] MEDS: SERTRALINE 100 MG PO SCH (07:52)
[2018-07-29] MEDS: [UNRECOGNIZED DRUG - OTHER] PO SCH (07:52)
[2018-07-29] MEDS: GABAPENTIN 100 MG PO SCH ×3 (07:53→19:49)
[2018-07-29] MEDS: Docusate Sodium 100 MG Cap PO SCH (07:53)
[2018-07-29] MEDS: Famotidine 20 MG Tab PO SCH (07:53)
[2018-07-29] MEDS: WARFARIN PO SCH (19:48)
[2018-07-29] MEDS: Melatonin 3 MG Tab PO SCH (19:48)
[2018-07-29] MEDS: ROPINIROLE 0.5 MG PO SCH (19:49)
[2018-07-30] MEDS: Acetaminophen 325 MG Tab PO SCH ×4 (02:06→20:09)
[2018-07-30] MEDS: Docusate Sodium 100 MG Cap PO SCH (08:36)
[2018-07-30] MEDS: GABAPENTIN 100 MG PO SCH ×3 (08:37→20:11)
[2018-07-30] MEDS: Metoprolol Succinate 25 MG Tab.ER PO SCH (08:39)
[2018-07-30] MEDS: [UNRECOGNIZED DRUG - OTHER] PO SCH (08:39)
[2018-07-30] MEDS: SERTRALINE 100 MG PO SCH (08:39)
[2018-07-30] MEDS: Famotidine 20 MG Tab PO SCH (08:44)
[2018-07-30] MEDS: Melatonin 3 MG Tab PO SCH (20:10)
[2018-07-30] MEDS: ROPINIROLE 0.5 MG PO SCH (20:11)
[2018-07-30] MEDS: WARFARIN 5 MG PO SCH (20:11)
[2018-07-31] MEDS: Acetaminophen 325 MG Tab PO SCH ×4 (01:50→19:25)
[2018-07-31] MEDS: GABAPENTIN 100 MG PO SCH ×3 (08:07→19:23)
[2018-07-31] MEDS: SERTRALINE 100 MG PO SCH (08:07)
[2018-07-31] MEDS: Famotidine 20 MG Tab PO SCH (08:08)
[2018-07-31] MEDS: Docusate Sodium 100 MG Cap PO SCH (08:08)
[2018-07-31] MEDS: [UNRECOGNIZED DRUG - OTHER] PO SCH (08:08)
[2018-07-31] MEDS: Metoprolol Succinate 25 MG Tab.ER PO SCH (08:08)
[2018-07-31] MEDS: ROPINIROLE 0.5 MG PO SCH (19:23)
[2018-07-31] MEDS: WARFARIN PO SCH (19:24)
[2018-07-31] MEDS: Melatonin 3 MG Tab PO SCH (19:25)
[2018-08-01] MEDS: Acetaminophen 325 MG Tab PO SCH ×4 (02:45→19:58)
[2018-08-01] MEDS: Docusate Sodium 100 MG Cap PO SCH (07:32)
[2018-08-01] MEDS: GABAPENTIN 100 MG PO SCH ×3 (07:32→19:59)
[2018-08-01] MEDS: Famotidine 20 MG Tab PO SCH (07:32)
[2018-08-01] MEDS: SERTRALINE 100 MG PO SCH (07:33)
[2018-08-01] MEDS: [UNRECOGNIZED DRUG - OTHER] PO SCH (07:33)
[2018-08-01] MEDS: Metoprolol Succinate 25 MG Tab.ER PO SCH (07:33)
[2018-08-01] MEDS: ROPINIROLE 0.5 MG PO SCH (19:58)
[2018-08-01] MEDS: WARFARIN 5 MG PO SCH (19:59)
[2018-08-01] MEDS: Melatonin 3 MG Tab PO SCH (19:59)
[2018-08-02] MEDS: Acetaminophen 325 MG Tab PO SCH ×4 (02:17→20:30)
[2018-08-02] MEDS: SERTRALINE 100 MG PO SCH (08:05)
[2018-08-02] MEDS: Metoprolol Succinate 25 MG Tab.ER PO SCH (08:05)
[2018-08-02] MEDS: [UNRECOGNIZED DRUG - OTHER] PO SCH (08:05)
[2018-08-02] MEDS: Famotidine 20 MG Tab PO SCH (08:05)
[2018-08-02] MEDS: Docusate Sodium 100 MG Cap PO SCH (08:06)
[2018-08-02] MEDS: GABAPENTIN 100 MG PO SCH ×3 (08:06→20:31)
[2018-08-02] MEDS: Melatonin 3 MG Tab PO SCH (20:30)
[2018-08-02] MEDS: WARFARIN 5 MG PO SCH (20:31)
[2018-08-02] MEDS: ROPINIROLE 0.5 MG PO SCH (20:31)
[2018-08-03] MEDS: Acetaminophen 325 MG Tab PO SCH ×4 (03:16→20:02)
[2018-08-03] MEDS: Famotidine 20 MG Tab PO SCH (08:26)
[2018-08-03] MEDS: Metoprolol Succinate 25 MG Tab.ER PO SCH (08:26)
[2018-08-03] MEDS: SERTRALINE 100 MG PO SCH (08:26)
[2018-08-03] MEDS: Docusate Sodium 100 MG Cap PO SCH (08:27)
[2018-08-03] MEDS: GABAPENTIN 100 MG PO SCH ×3 (08:27→20:02)
[2018-08-03] MEDS: [UNRECOGNIZED DRUG - OTHER] PO SCH (08:27)
[2018-08-03] MEDS: Melatonin 3 MG Tab PO SCH (20:02)
[2018-08-03] MEDS: ROPINIROLE 0.5 MG PO SCH (20:02)
[2018-08-03] MEDS: WARFARIN 5 MG PO SCH (20:02)
[2018-08-04] MEDS: Acetaminophen 325 MG Tab PO SCH ×4 (04:58→19:43)
[2018-08-04] MEDS: Famotidine 20 MG Tab PO SCH (08:25)
[2018-08-04] MEDS: GABAPENTIN 100 MG PO SCH ×3 (08:25→19:45)
[2018-08-04] MEDS: SERTRALINE 100 MG PO SCH (08:25)
[2018-08-04] MEDS: [UNRECOGNIZED DRUG - OTHER] PO SCH (08:25)
[2018-08-04] MEDS: Metoprolol Succinate 25 MG Tab.ER PO SCH (08:25)
[2018-08-04] MEDS: Docusate Sodium 100 MG Cap PO SCH (09:32)
[2018-08-04] MEDS: WARFARIN 5 MG PO SCH (19:43)
[2018-08-04] MEDS: Melatonin 3 MG Tab PO SCH (19:43)
[2018-08-04] MEDS: ROPINIROLE 0.5 MG PO SCH (19:45)
[2018-08-05] MEDS: Acetaminophen 325 MG Tab PO SCH ×4 (03:25→20:19)
[2018-08-05] MEDS: Docusate Sodium 100 MG Cap PO SCH (08:35)
[2018-08-05] MEDS: Metoprolol Succinate 25 MG Tab.ER PO SCH (08:35)
[2018-08-05] MEDS: Famotidine 20 MG Tab PO SCH (08:35)
[2018-08-05] MEDS: GABAPENTIN 100 MG PO SCH ×3 (08:35→20:20)
[2018-08-05] MEDS: SERTRALINE 100 MG PO SCH (08:36)
[2018-08-05] MEDS: [UNRECOGNIZED DRUG - OTHER] PO SCH (08:36)
[2018-08-05] MEDS: Melatonin 3 MG Tab PO SCH (20:19)
[2018-08-05] MEDS: ROPINIROLE 0.5 MG PO SCH (20:21)
[2018-08-05] MEDS: WARFARIN PO SCH (20:21)
[2018-08-06] MEDS: Acetaminophen 325 MG Tab PO SCH ×4 (04:11→20:35)
[2018-08-06] MEDS: GABAPENTIN 100 MG PO SCH ×3 (07:46→20:36)
[2018-08-06] MEDS: [UNRECOGNIZED DRUG - OTHER] PO SCH (07:46)
[2018-08-06] MEDS: SERTRALINE 100 MG PO SCH (07:47)
[2018-08-06] MEDS: Docusate Sodium 100 MG Cap PO SCH (07:47)
[2018-08-06] MEDS: Famotidine 20 MG Tab PO SCH (07:51)
[2018-08-06] MEDS: Metoprolol Succinate 25 MG Tab.ER PO SCH (07:51)
[2018-08-06] MEDS: Melatonin 3 MG Tab PO SCH (20:35)
[2018-08-06] MEDS: ROPINIROLE 0.5 MG PO SCH (20:36)
[2018-08-06] MEDS: WARFARIN 5 MG PO SCH (20:37)
[2018-08-07] MEDS: Acetaminophen 325 MG Tab PO SCH ×4 (02:36→20:29)
[2018-08-07] MEDS: Famotidine 20 MG Tab PO SCH (07:43)
[2018-08-07] MEDS: Metoprolol Succinate 25 MG Tab.ER PO SCH (07:43)
[2018-08-07] MEDS: SERTRALINE 100 MG PO SCH (07:43)
[2018-08-07] MEDS: GABAPENTIN 100 MG PO SCH ×3 (07:43→20:30)
[2018-08-07] MEDS: Docusate Sodium 100 MG Cap PO SCH (07:43)
[2018-08-07] MEDS: [UNRECOGNIZED DRUG - OTHER] PO SCH (07:44)
[2018-08-07] MEDS: Melatonin 3 MG Tab PO SCH (20:29)
[2018-08-07] MEDS: ROPINIROLE 0.5 MG PO SCH (20:29)
[2018-08-07] MEDS: WARFARIN 5 MG PO SCH (20:30)
[2018-08-08] MEDS: Acetaminophen 325 MG Tab PO SCH ×4 (03:16→20:32)
[2018-08-08] MEDS: Famotidine 20 MG Tab PO SCH (08:03)
[2018-08-08] MEDS: Docusate Sodium 100 MG Cap PO SCH (08:03)
[2018-08-08] MEDS: SERTRALINE 100 MG PO SCH (08:03)
[2018-08-08] MEDS: [UNRECOGNIZED DRUG - OTHER] PO SCH (08:04)
[2018-08-08] MEDS: GABAPENTIN 100 MG PO SCH ×3 (08:04→20:34)
[2018-08-08] MEDS: Metoprolol Succinate 25 MG Tab.ER PO SCH (08:04)
[2018-08-08] MEDS: Melatonin 3 MG Tab PO SCH (20:32)
[2018-08-08] MEDS: WARFARIN PO SCH (20:33)
[2018-08-08] MEDS: ROPINIROLE 0.5 MG PO SCH (20:33)
[2018-08-09] MEDS: Acetaminophen 325 MG Tab PO SCH ×4 (04:20→19:44)
[2018-08-09] MEDS: Famotidine 20 MG Tab PO SCH (08:54)
[2018-08-09] MEDS: [UNRECOGNIZED DRUG - OTHER] PO SCH (08:55)
[2018-08-09] MEDS: GABAPENTIN 100 MG PO SCH ×2 (08:55→14:20)
[2018-08-09] MEDS: SERTRALINE 100 MG PO SCH (08:55)
[2018-08-09] MEDS: Docusate Sodium 100 MG Cap PO SCH (08:58)
[2018-08-09] MEDS: Metoprolol Succinate 25 MG Tab.ER PO SCH (08:58)
[2018-08-09] MEDS: WARFARIN 5 MG PO SCH (19:42)
[2018-08-09] MEDS: Melatonin 3 MG Tab PO SCH (19:43)
[2018-08-09] MEDS: ROPINIROLE 0.5 MG PO SCH (19:43)
[2018-08-10] MEDS: Acetaminophen 325 MG Tab PO SCH ×5 (05:05→19:53)
[2018-08-10] MEDS: Famotidine 20 MG Tab PO SCH (07:46)
[2018-08-10] MEDS: Docusate Sodium 100 MG Cap PO SCH (07:46)
[2018-08-10] MEDS: METOPROLOL 25 MG PO SCH (07:47)
[2018-08-10] MEDS: GABAPENTIN 100 MG PO SCH ×2 (07:48→14:16)
[2018-08-10] MEDS: [UNRECOGNIZED DRUG - OTHER] PO SCH (07:49)
[2018-08-10] MEDS: SERTRALINE 100 MG PO SCH (07:49)
[2018-08-10] MEDS: Melatonin 3 MG Tab PO SCH (19:53)
[2018-08-10] MEDS: WARFARIN 5 MG PO SCH (19:54)
[2018-08-10] MEDS: ROPINIROLE 0.5 MG PO SCH (19:55)
[2018-08-11] MEDS: Acetaminophen 325 MG Tab PO SCH ×4 (02:29→19:45)
[2018-08-11] MEDS: METOPROLOL 25 MG PO SCH (08:21)
[2018-08-11] MEDS: SERTRALINE 100 MG PO SCH (08:22)
[2018-08-11] MEDS: GABAPENTIN 100 MG PO SCH ×2 (08:22→12:51)
[2018-08-11] MEDS: [UNRECOGNIZED DRUG - OTHER] PO SCH (08:22)
[2018-08-11] MEDS: Docusate Sodium 100 MG Cap PO SCH (08:23)
[2018-08-11] MEDS: Famotidine 20 MG Tab PO SCH (08:23)
[2018-08-11] MEDS: Melatonin 3 MG Tab PO SCH (19:46)
[2018-08-11] MEDS: ROPINIROLE 0.5 MG PO SCH (19:46)
[2018-08-11] MEDS: WARFARIN 5 MG PO SCH (19:47)
[2018-08-12] MEDS: Acetaminophen 325 MG Tab PO SCH ×4 (02:42→19:46)
[2018-08-12] MEDS: Docusate Sodium 100 MG Cap PO SCH (08:04)
[2018-08-12] MEDS: [UNRECOGNIZED DRUG - OTHER] PO SCH (08:04)
[2018-08-12] MEDS: Famotidine 20 MG Tab PO SCH (08:04)
[2018-08-12] MEDS: METOPROLOL 25 MG PO SCH (08:04)
[2018-08-12] MEDS: GABAPENTIN 100 MG PO SCH ×2 (08:04→13:09)
[2018-08-12] MEDS: SERTRALINE 100 MG PO SCH (08:05)
[2018-08-12] MEDS: ROPINIROLE 0.5 MG PO SCH (19:45)
[2018-08-12] MEDS: WARFARIN PO SCH (19:45)
[2018-08-12] MEDS: Melatonin 3 MG Tab PO SCH (19:46)
[2018-08-13] MEDS: Acetaminophen 325 MG Tab PO SCH ×4 (03:50→19:52)
[2018-08-13] MEDS: [UNRECOGNIZED DRUG - OTHER] PO SCH (08:11)
[2018-08-13] MEDS: Famotidine 20 MG Tab PO SCH (08:11)
[2018-08-13] MEDS: SERTRALINE 100 MG PO SCH (08:12)
[2018-08-13] MEDS: METOPROLOL 25 MG PO SCH (08:12)
[2018-08-13] MEDS: GABAPENTIN 100 MG PO SCH ×2 (08:12→15:10)
[2018-08-13] MEDS: Docusate Sodium 100 MG Cap PO SCH (08:15)
[2018-08-13] MEDS: WARFARIN 5 MG PO SCH (19:51)
[2018-08-13] MEDS: ROPINIROLE 0.5 MG PO SCH (19:51)
[2018-08-13] MEDS: Melatonin 3 MG Tab PO SCH (19:52)
[2018-08-14] MEDS: Acetaminophen 325 MG Tab PO SCH ×4 (02:12→20:18)
[2018-08-14] MEDS: Docusate Sodium 100 MG Cap PO SCH (08:09)
[2018-08-14] MEDS: METOPROLOL 25 MG PO SCH (08:09)
[2018-08-14] MEDS: GABAPENTIN 100 MG PO SCH ×2 (08:09→12:47)
[2018-08-14] MEDS: Famotidine 20 MG Tab PO SCH (08:09)
[2018-08-14] MEDS: SERTRALINE 100 MG PO SCH (08:09)
[2018-08-14] MEDS: [UNRECOGNIZED DRUG - OTHER] PO SCH (08:10)
[2018-08-14] MEDS: Melatonin 3 MG Tab PO SCH (20:18)
[2018-08-14] MEDS: WARFARIN 5 MG PO SCH (20:19)
[2018-08-14] MEDS: ROPINIROLE 0.5 MG PO SCH (20:19)
[2018-08-15] MEDS: Acetaminophen 325 MG Tab PO SCH ×4 (02:07→20:30)
[2018-08-15] MEDS: GABAPENTIN 100 MG PO SCH ×2 (07:50→15:31)
[2018-08-15] MEDS: SERTRALINE 100 MG PO SCH (07:50)
[2018-08-15] MEDS: METOPROLOL 25 MG PO SCH (07:50)
[2018-08-15] MEDS: Docusate Sodium 100 MG Cap PO SCH (07:51)
[2018-08-15] MEDS: Famotidine 20 MG Tab PO SCH (07:51)
[2018-08-15] MEDS: [UNRECOGNIZED DRUG - OTHER] PO SCH (07:51)
[2018-08-15] MEDS: Melatonin 3 MG Tab PO SCH (20:30)
[2018-08-15] MEDS: WARFARIN PO SCH (20:30)
[2018-08-15] MEDS: ROPINIROLE 0.5 MG PO SCH (20:31)
[2018-08-16] MEDS: Acetaminophen 325 MG Tab PO SCH ×4 (02:36→20:30)
[2018-08-16] MEDS: METOPROLOL 25 MG PO SCH (08:01)
[2018-08-16] MEDS: Docusate Sodium 100 MG Cap PO SCH (08:01)
[2018-08-16] MEDS: SERTRALINE 100 MG PO SCH (08:02)
[2018-08-16] MEDS: [UNRECOGNIZED DRUG - OTHER] PO SCH (08:02)
[2018-08-16] MEDS: GABAPENTIN 100 MG PO SCH ×2 (08:02→12:54)
[2018-08-16] MEDS: Famotidine 20 MG Tab PO SCH (08:03)
[2018-08-16] MEDS: WARFARIN 5 MG PO SCH (20:29)
[2018-08-16] MEDS: ROPINIROLE 0.5 MG PO SCH (20:29)
[2018-08-16] MEDS: Melatonin 3 MG Tab PO SCH (20:30)
[2018-08-17] MEDS: Acetaminophen 325 MG Tab PO SCH ×4 (02:33→21:05)
[2018-08-17] MEDS: METOPROLOL 25 MG PO SCH (09:14)
[2018-08-17] MEDS: GABAPENTIN 100 MG PO SCH ×2 (09:15→13:21)
[2018-08-17] MEDS: [UNRECOGNIZED DRUG - OTHER] PO SCH (09:15)
[2018-08-17] MEDS: SERTRALINE 100 MG PO SCH (09:15)
[2018-08-17] MEDS: Famotidine 20 MG Tab PO SCH (09:16)
[2018-08-17] MEDS: Docusate Sodium 100 MG Cap PO SCH (09:16)
[2018-08-17] MEDS: Melatonin 3 MG Tab PO SCH (21:05)
[2018-08-17] MEDS: WARFARIN 5 MG PO SCH (21:06)
[2018-08-17] MEDS: ROPINIROLE 0.5 MG PO SCH (21:06)
[2018-08-18] MEDS: Acetaminophen 325 MG Tab PO SCH ×4 (02:33→20:21)
[2018-08-18] MEDS: METOPROLOL 25 MG PO SCH (07:46)
[2018-08-18] MEDS: SERTRALINE 100 MG PO SCH (07:46)
[2018-08-18] MEDS: [UNRECOGNIZED DRUG - OTHER] PO SCH (07:46)
[2018-08-18] MEDS: GABAPENTIN 100 MG PO SCH ×2 (07:46→12:06)
[2018-08-18] MEDS: Docusate Sodium 100 MG Cap PO SCH (07:47)
[2018-08-18] MEDS: Famotidine 20 MG Tab PO SCH (07:47)
[2018-08-18] MEDS: Melatonin 3 MG Tab PO SCH (20:21)
[2018-08-18] MEDS: WARFARIN 5 MG PO SCH (20:22)
[2018-08-18] MEDS: ROPINIROLE 0.5 MG PO SCH (20:22)
[2018-08-19] MEDS: Acetaminophen 325 MG Tab PO SCH ×4 (04:18→20:30)
[2018-08-19] MEDS: METOPROLOL 25 MG PO SCH (08:33)
[2018-08-19] MEDS: GABAPENTIN 100 MG PO SCH ×2 (08:33→12:43)
[2018-08-19] MEDS: [UNRECOGNIZED DRUG - OTHER] PO SCH (08:34)
[2018-08-19] MEDS: SERTRALINE 100 MG PO SCH (08:34)
[2018-08-19] MEDS: Docusate Sodium 100 MG Cap PO SCH (08:40)
[2018-08-19] MEDS: Famotidine 20 MG Tab PO SCH (08:40)
[2018-08-19] MEDS: ROPINIROLE 0.5 MG PO SCH (20:30)
[2018-08-19] MEDS: Melatonin 3 MG Tab PO SCH (20:30)
[2018-08-19] MEDS: WARFARIN PO SCH (20:31)
[2018-08-20] MEDS: Acetaminophen 325 MG Tab PO SCH ×4 (04:54→19:28)
[2018-08-20] MEDS: GABAPENTIN 100 MG PO SCH ×2 (08:06→12:00)
[2018-08-20] MEDS: SERTRALINE 100 MG PO SCH (08:06)
[2018-08-20] MEDS: METOPROLOL 25 MG PO SCH (08:06)
[2018-08-20] MEDS: [UNRECOGNIZED DRUG - OTHER] PO SCH (08:06)
[2018-08-20] MEDS: Famotidine 20 MG Tab PO SCH (08:07)
[2018-08-20] MEDS: Docusate Sodium 100 MG Cap PO SCH (08:07)
[2018-08-20] MEDS: WARFARIN 5 MG PO SCH (19:27)
[2018-08-20] MEDS: ROPINIROLE 0.5 MG PO SCH (19:27)
[2018-08-20] MEDS: Melatonin 3 MG Tab PO SCH (19:28)
[2018-08-21] MEDS: Acetaminophen 325 MG Tab PO SCH ×4 (01:26→20:27)
[2018-08-21] MEDS: SERTRALINE 100 MG PO SCH (08:30)
[2018-08-21] MEDS: [UNRECOGNIZED DRUG - OTHER] PO SCH (08:30)
[2018-08-21] MEDS: Docusate Sodium 100 MG Cap PO SCH (08:31)
[2018-08-21] MEDS: GABAPENTIN 100 MG PO SCH ×2 (08:31→14:06)
[2018-08-21] MEDS: METOPROLOL 25 MG PO SCH (08:31)
[2018-08-21] MEDS: Famotidine 20 MG Tab PO SCH (08:31)
[2018-08-21] MEDS: Melatonin 3 MG Tab PO SCH (20:28)
[2018-08-21] MEDS: WARFARIN 5 MG PO SCH (20:28)
[2018-08-21] MEDS: ROPINIROLE 0.5 MG PO SCH (20:29)
[2018-08-22] MEDS: Acetaminophen 325 MG Tab PO SCH ×4 (01:28→19:44)
[2018-08-22] MEDS: Docusate Sodium 100 MG Cap PO SCH (08:36)
[2018-08-22] MEDS: [UNRECOGNIZED DRUG - OTHER] PO SCH (08:37)
[2018-08-22] MEDS: METOPROLOL 25 MG PO SCH (08:37)
[2018-08-22] MEDS: Famotidine 20 MG Tab PO SCH (08:37)
[2018-08-22] MEDS: GABAPENTIN 100 MG PO SCH ×2 (08:37→14:38)
[2018-08-22] MEDS: SERTRALINE 100 MG PO SCH (08:37)
[2018-08-22] MEDS: Melatonin 3 MG Tab PO SCH (19:44)
[2018-08-22] MEDS: WARFARIN PO SCH (19:44)
[2018-08-22] MEDS: ROPINIROLE 0.5 MG PO SCH (19:44)
[2018-08-23] MEDS: Acetaminophen 325 MG Tab PO SCH ×4 (02:03→20:55)
[2018-08-23] MEDS: SERTRALINE 100 MG PO SCH (07:48)
[2018-08-23] MEDS: [UNRECOGNIZED DRUG - OTHER] PO SCH (07:48)
[2018-08-23] MEDS: METOPROLOL 25 MG PO SCH (07:48)
[2018-08-23] MEDS: Docusate Sodium 100 MG Cap PO SCH (07:48)
[2018-08-23] MEDS: Famotidine 20 MG Tab PO SCH (07:48)
[2018-08-23] MEDS: GABAPENTIN 100 MG PO SCH ×2 (07:49→12:48)
[2018-08-23] MEDS ORDERED: [UNRECOGNIZED DRUG - REMARK] PRN (13:15)
[2018-08-23] MEDS: Melatonin 3 MG Tab PO SCH (20:54)
[2018-08-23] MEDS: ROPINIROLE 0.5 MG PO SCH (20:57)
[2018-08-23] MEDS: WARFARIN 5 MG PO SCH (20:57)
[2018-08-24] MEDS: Acetaminophen 325 MG Tab PO SCH ×4 (04:07→20:58)
[2018-08-24] MEDS: GABAPENTIN 100 MG PO SCH ×2 (08:58→13:50)
[2018-08-24] MEDS: SERTRALINE 100 MG PO SCH (08:58)
[2018-08-24] MEDS: METOPROLOL 25 MG PO SCH (08:58)
[2018-08-24] MEDS: [UNRECOGNIZED DRUG - OTHER] PO SCH (08:58)
[2018-08-24] MEDS: Docusate Sodium 100 MG Cap PO SCH (08:59)
[2018-08-24] MEDS: Famotidine 20 MG Tab PO SCH (09:00)
[2018-08-24] MEDS: NITROGLYCERIN 0.4 MG SL PRN ×2 (17:55→18:00)
[2018-08-24] MEDS: Calcium Carbonate 750 MG Tab.Chew PO PRN (18:09)
[2018-08-24] MEDS: WARFARIN 5 MG PO SCH (20:57)
[2018-08-24] MEDS: ROPINIROLE 0.5 MG PO SCH (20:57)
[2018-08-24] MEDS: Melatonin 3 MG Tab PO SCH (20:58)
[2018-08-25] MEDS: Acetaminophen 325 MG Tab PO SCH ×4 (03:24→21:30)
[2018-08-25] MEDS: GABAPENTIN 100 MG PO SCH ×2 (09:39→12:08)
[2018-08-25] MEDS: [UNRECOGNIZED DRUG - OTHER] PO SCH (09:39)
[2018-08-25] MEDS: METOPROLOL 25 MG PO SCH (09:39)
[2018-08-25] MEDS: Docusate Sodium 100 MG Cap PO SCH (09:40)
[2018-08-25] MEDS: SERTRALINE 100 MG PO SCH (09:40)
[2018-08-25] MEDS: Famotidine 20 MG Tab PO SCH (09:40)
--- NOTE | 2018-08-25 11:27 | PN ---
Progress Note for ANABELLE TANG Date: 08/25/2018 Room #: VM.219 SUBJECTIVE: An 83-year-old seen today for swing bed rounds because of an episode of chest pain she had yesterday late afternoon. EKGs were done. One of them did show sinus rhythm, one of them showed atrial fibrillation which she has a known history of and is on Coumadin. She stated the chest pain lasted a couple hours. It was relieved by some nitroglycerin and Tums. It really scared her. Did have a troponin drawn 3 hours after the chest pain started, which is negative. The patient then has had no further events. She told the nurse she had a couple of heart attacks in the past, but when I reviewed her history and I had been her previous physician, she had only had heart failure. Otherwise, she is breathing fine today. She is a long-term swing bed patient. PHYSICAL EXAMINATION: Vital Signs: Objectively, her temperature, she has been afebrile, pulse 79, blood pressure 112/56, respiratory rate 16, O2 of 96% on 2 L. She is chronically on oxygen. General: She is in no acute distress. Heart: Regular rate and rhythm, S1, S2 without murmur appreciated. Lungs: Sounds clear to auscultation bilaterally without crackles or wheezes. Extremities: Warm and dry, no edema. Mental Status: She is alert, she is aware. She is in the hospital. She tells me she is going to stay here long-term. ASSESSMENT: 1. Episode of chest pain, partially evaluated with EKG and troponin. Did offer her repeat troponin now this morning, but given that her symptoms have resolved, she is comfortable with no further workup. 2. Failure to thrive. She was a vulnerable adult in an unsafe home environment, now she is in swing bed getting assistance with ADLs. 3. Atrial fibrillation and history of recurrent deep venous thrombosis. Her INR was therapeutic on the 12th. It will be repeated in 2 weeks. 4. Cognitive impairment. MoCA was 19 three years ago. She most likely has at least a moderate dementia. PLAN: At this point, patient will continue on swing bed cares. We will further evaluate if needed for any episodes of chest pain, but now we will continue with her current medical management. She has no documented coronary artery disease but does have nitroglycerin available if needed. I would not add any extra medications at this point, she is already on a beta-cm. MKA: 08/25/2018 10:53:16 MODL: 08/25/2018 11:18:39 /[id number]
[2018-08-25] MEDS: ROPINIROLE 0.5 MG PO SCH (21:31)
[2018-08-25] MEDS: Melatonin 3 MG Tab PO SCH (21:31)
[2018-08-25] MEDS: WARFARIN 5 MG PO SCH (21:32)
[2018-08-26] MEDS: Acetaminophen 325 MG Tab PO SCH ×4 (04:50→19:41)
[2018-08-26] MEDS: Docusate Sodium 100 MG Cap PO SCH (07:42)
[2018-08-26] MEDS: Famotidine 20 MG Tab PO SCH (07:42)
[2018-08-26] MEDS: GABAPENTIN 100 MG PO SCH ×2 (07:42→14:24)
[2018-08-26] MEDS: [UNRECOGNIZED DRUG - OTHER] PO SCH (07:43)
[2018-08-26] MEDS: SERTRALINE 100 MG PO SCH (07:43)
[2018-08-26] MEDS: METOPROLOL 25 MG PO SCH (07:43)
[2018-08-26] MEDS: WARFARIN PO SCH (19:40)
[2018-08-26] MEDS: ROPINIROLE 0.5 MG PO SCH (19:41)
[2018-08-26] MEDS: Melatonin 3 MG Tab PO SCH (19:41)
[2018-08-27] MEDS: Acetaminophen 325 MG Tab PO SCH ×4 (01:38→19:17)
[2018-08-27] MEDS: METOPROLOL 25 MG PO SCH (07:54)
[2018-08-27] MEDS: SERTRALINE 100 MG PO SCH (07:54)
[2018-08-27] MEDS: Famotidine 20 MG Tab PO SCH (07:54)
[2018-08-27] MEDS: GABAPENTIN 100 MG PO SCH ×2 (07:54→13:04)
[2018-08-27] MEDS: Docusate Sodium 100 MG Cap PO SCH (07:54)
[2018-08-27] MEDS: [UNRECOGNIZED DRUG - OTHER] PO SCH (07:55)
[2018-08-27] MEDS: ROPINIROLE 0.5 MG PO SCH (19:17)
[2018-08-27] MEDS: WARFARIN 5 MG PO SCH (19:17)
[2018-08-27] MEDS: Melatonin 3 MG Tab PO SCH (19:17)
[2018-08-28] MEDS: Acetaminophen 325 MG Tab PO SCH ×4 (04:11→19:24)
[2018-08-28] MEDS: METOPROLOL 25 MG PO SCH (07:31)
[2018-08-28] MEDS: GABAPENTIN 100 MG PO SCH ×2 (07:31→13:35)
[2018-08-28] MEDS: [UNRECOGNIZED DRUG - OTHER] PO SCH (07:31)
[2018-08-28] MEDS: SERTRALINE 100 MG PO SCH (07:31)
[2018-08-28] MEDS: Famotidine 20 MG Tab PO SCH (07:32)
[2018-08-28] MEDS: Docusate Sodium 100 MG Cap PO SCH (07:32)
[2018-08-28] MEDS: WARFARIN 5 MG PO SCH (19:23)
[2018-08-28] MEDS: ROPINIROLE 0.5 MG PO SCH (19:23)
[2018-08-28] MEDS: Melatonin 3 MG Tab PO SCH (19:23)
[2018-08-29] MEDS: Acetaminophen 325 MG Tab PO SCH ×4 (03:13→19:30)
[2018-08-29] MEDS: GABAPENTIN 100 MG PO SCH ×2 (07:49→15:02)
[2018-08-29] MEDS: Famotidine 20 MG Tab PO SCH (07:50)
[2018-08-29] MEDS: SERTRALINE 100 MG PO SCH (07:50)
[2018-08-29] MEDS: [UNRECOGNIZED DRUG - OTHER] PO SCH (07:50)
[2018-08-29] MEDS: Docusate Sodium 100 MG Cap PO SCH (07:50)
[2018-08-29] MEDS: METOPROLOL 25 MG PO SCH (09:15)
[2018-08-29] MEDS ORDERED: Nitrofurantoin Monohydrate/Macrocrystalline 100 MG Cap PO SCH (17:00)
[2018-08-29] MEDS: ROPINIROLE 0.5 MG PO SCH (19:30)
[2018-08-29] MEDS: Melatonin 3 MG Tab PO SCH (19:31)
[2018-08-29] MEDS: WARFARIN PO SCH (19:31)
[2018-08-29] MEDS: CEPHALEXIN 250 MG PO SCH (19:34)
[2018-08-30] MEDS: Acetaminophen 325 MG Tab PO SCH ×4 (02:01→22:39)
[2018-08-30] MEDS: [UNRECOGNIZED DRUG - OTHER] PO SCH (09:33)
[2018-08-30] MEDS: Docusate Sodium 100 MG Cap PO SCH (09:33)
[2018-08-30] MEDS: METOPROLOL 25 MG PO SCH (09:34)
[2018-08-30] MEDS: SERTRALINE 100 MG PO SCH (09:34)
[2018-08-30] MEDS: GABAPENTIN 100 MG PO SCH ×2 (09:35→12:43)
[2018-08-30] MEDS: CEPHALEXIN 250 MG PO SCH ×2 (09:36→22:39)
[2018-08-30] MEDS: Famotidine 20 MG Tab PO SCH (09:39)
[2018-08-30] MEDS: WARFARIN 5 MG PO SCH (22:37)
[2018-08-30] MEDS: ROPINIROLE 0.5 MG PO SCH (22:38)
[2018-08-30] MEDS: Melatonin 3 MG Tab PO SCH (22:39)
[2018-08-31] MEDS: Acetaminophen 325 MG Tab PO SCH ×4 (04:55→19:55)
[2018-08-31] MEDS: Docusate Sodium 100 MG Cap PO SCH (08:49)
[2018-08-31] MEDS: CEPHALEXIN 250 MG PO SCH ×2 (08:50→19:55)
[2018-08-31] MEDS: SERTRALINE 100 MG PO SCH (08:52)
[2018-08-31] MEDS: [UNRECOGNIZED DRUG - OTHER] PO SCH (08:52)
[2018-08-31] MEDS: METOPROLOL 25 MG PO SCH (08:54)
[2018-08-31] MEDS: GABAPENTIN 100 MG PO SCH ×2 (08:55→14:04)
[2018-08-31] MEDS: Famotidine 20 MG Tab PO SCH (09:01)
[2018-08-31] MEDS: Melatonin 3 MG Tab PO SCH (19:55)
[2018-08-31] MEDS: ROPINIROLE 0.5 MG PO SCH (19:56)
[2018-08-31] MEDS: WARFARIN 5 MG PO SCH (19:56)
[2018-09-01] MEDS: Acetaminophen 325 MG Tab PO SCH ×4 (01:22→20:22)
[2018-09-01] MEDS: [UNRECOGNIZED DRUG - OTHER] PO SCH (09:02)
[2018-09-01] MEDS: METOPROLOL 25 MG PO SCH (09:02)
[2018-09-01] MEDS: CEPHALEXIN 250 MG PO SCH ×2 (09:03→20:23)
[2018-09-01] MEDS: SERTRALINE 100 MG PO SCH (09:03)
[2018-09-01] MEDS: Docusate Sodium 100 MG Cap PO SCH (09:04)
[2018-09-01] MEDS: Famotidine 20 MG Tab PO SCH (09:04)
[2018-09-01] MEDS: GABAPENTIN 100 MG PO SCH ×2 (09:05→12:35)
[2018-09-01] MEDS: Calcium Carbonate 750 MG Tab.Chew PO PRN (12:34)
[2018-09-01] MEDS: ROPINIROLE 0.5 MG PO SCH (20:20)
[2018-09-01] MEDS: WARFARIN 5 MG PO SCH (20:20)
[2018-09-01] MEDS: Melatonin 3 MG Tab PO SCH (20:22)
[2018-09-02] MEDS: Acetaminophen 325 MG Tab PO SCH ×4 (01:57→19:59)
[2018-09-02] MEDS: Docusate Sodium 100 MG Cap PO SCH (09:18)
[2018-09-02] MEDS: [UNRECOGNIZED DRUG - OTHER] PO SCH (09:18)
[2018-09-02] MEDS: METOPROLOL 25 MG PO SCH (09:19)
[2018-09-02] MEDS: GABAPENTIN 100 MG PO SCH ×2 (09:19→13:56)
[2018-09-02] MEDS: Famotidine 20 MG Tab PO SCH (09:20)
[2018-09-02] MEDS: SERTRALINE 100 MG PO SCH (09:22)
[2018-09-02] MEDS: CEPHALEXIN 250 MG PO SCH ×2 (09:32→19:59)
[2018-09-02] MEDS: Melatonin 3 MG Tab PO SCH (19:59)
[2018-09-02] MEDS: ROPINIROLE 0.5 MG PO SCH (19:59)
[2018-09-02] MEDS: WARFARIN PO SCH (19:59)
[2018-09-03] MEDS: Acetaminophen 325 MG Tab PO SCH ×4 (03:00→19:34)
[2018-09-03] MEDS: GABAPENTIN 100 MG PO SCH ×2 (08:18→13:27)
[2018-09-03] MEDS: Famotidine 20 MG Tab PO SCH (08:19)
[2018-09-03] MEDS: METOPROLOL 25 MG PO SCH (08:19)
[2018-09-03] MEDS: [UNRECOGNIZED DRUG - OTHER] PO SCH (08:19)
[2018-09-03] MEDS: Docusate Sodium 100 MG Cap PO SCH (08:19)
[2018-09-03] MEDS: CEPHALEXIN 250 MG PO SCH (08:20)
[2018-09-03] MEDS: SERTRALINE 100 MG PO SCH (08:20)
[2018-09-03] MEDS: WARFARIN 5 MG PO SCH (19:34)
[2018-09-03] MEDS: Melatonin 3 MG Tab PO SCH (19:34)
[2018-09-03] MEDS: ROPINIROLE 0.5 MG PO SCH (19:34)
[2018-09-04] MEDS: Acetaminophen 325 MG Tab PO SCH ×4 (03:12→19:20)
[2018-09-04] MEDS: Famotidine 20 MG Tab PO SCH (08:17)
[2018-09-04] MEDS: SERTRALINE 100 MG PO SCH (08:17)
[2018-09-04] MEDS: [UNRECOGNIZED DRUG - OTHER] PO SCH (08:17)
[2018-09-04] MEDS: Docusate Sodium 100 MG Cap PO SCH (08:17)
[2018-09-04] MEDS: METOPROLOL 25 MG PO SCH (08:17)
[2018-09-04] MEDS: GABAPENTIN 100 MG PO SCH ×2 (08:17→12:19)
[2018-09-04] MEDS: WARFARIN 5 MG PO SCH (19:20)
[2018-09-04] MEDS: ROPINIROLE 0.5 MG PO SCH (19:20)
[2018-09-04] MEDS: Melatonin 3 MG Tab PO SCH (19:20)
[2018-09-05] MEDS: Acetaminophen 325 MG Tab PO SCH ×4 (05:50→20:55)
[2018-09-05] MEDS: Famotidine 20 MG Tab PO SCH (08:16)
[2018-09-05] MEDS: GABAPENTIN 100 MG PO SCH ×2 (08:16→13:35)
[2018-09-05] MEDS: Docusate Sodium 100 MG Cap PO SCH (08:16)
[2018-09-05] MEDS: METOPROLOL 25 MG PO SCH (08:17)
[2018-09-05] MEDS: SERTRALINE 100 MG PO SCH (08:17)
[2018-09-05] MEDS: [UNRECOGNIZED DRUG - OTHER] PO SCH (08:17)
[2018-09-05] MEDS: Melatonin 3 MG Tab PO SCH (20:56)
[2018-09-05] MEDS: WARFARIN PO SCH (20:57)
[2018-09-05] MEDS: ROPINIROLE 0.5 MG PO SCH (20:57)
[2018-09-06] MEDS: Acetaminophen 325 MG Tab PO SCH ×4 (02:51→20:20)
[2018-09-06] MEDS: GABAPENTIN 100 MG PO SCH ×2 (08:38→12:46)
[2018-09-06] MEDS: [UNRECOGNIZED DRUG - OTHER] PO SCH (08:39)
[2018-09-06] MEDS: Famotidine 20 MG Tab PO SCH (08:39)
[2018-09-06] MEDS: Docusate Sodium 100 MG Cap PO SCH (08:39)
[2018-09-06] MEDS: METOPROLOL 25 MG PO SCH (08:39)
[2018-09-06] MEDS: SERTRALINE 100 MG PO SCH (08:39)
[2018-09-06] MEDS: ROPINIROLE 0.5 MG PO SCH (20:21)
[2018-09-06] MEDS: Melatonin 3 MG Tab PO SCH (20:21)
[2018-09-06] MEDS: WARFARIN 5 MG PO SCH (20:22)
[2018-09-07] MEDS: Acetaminophen 325 MG Tab PO SCH ×4 (04:21→20:01)
[2018-09-07] MEDS: METOPROLOL 25 MG PO SCH (07:33)
[2018-09-07] MEDS: [UNRECOGNIZED DRUG - OTHER] PO SCH (07:33)
[2018-09-07] MEDS: SERTRALINE 100 MG PO SCH (07:33)
[2018-09-07] MEDS: GABAPENTIN 100 MG PO SCH ×2 (07:34→13:47)
[2018-09-07] MEDS: Famotidine 20 MG Tab PO SCH (07:37)
[2018-09-07] MEDS: Docusate Sodium 100 MG Cap PO SCH (07:38)
[2018-09-07] MEDS: Melatonin 3 MG Tab PO SCH (20:01)
[2018-09-07] MEDS: WARFARIN 5 MG PO SCH (20:02)
[2018-09-07] MEDS: ROPINIROLE 0.5 MG PO SCH (20:02)
[2018-09-08] MEDS: Acetaminophen 325 MG Tab PO SCH ×4 (05:26→20:03)
[2018-09-08] MEDS: SERTRALINE 100 MG PO SCH (07:40)
[2018-09-08] MEDS: [UNRECOGNIZED DRUG - OTHER] PO SCH (07:40)
[2018-09-08] MEDS: METOPROLOL 25 MG PO SCH (07:40)
[2018-09-08] MEDS: GABAPENTIN 100 MG PO SCH ×2 (07:40→14:15)
[2018-09-08] MEDS: Docusate Sodium 100 MG Cap PO SCH (07:41)
[2018-09-08] MEDS: Famotidine 20 MG Tab PO SCH (07:41)
[2018-09-08] MEDS: Melatonin 3 MG Tab PO SCH (20:02)
[2018-09-08] MEDS: WARFARIN 5 MG PO SCH (20:05)
[2018-09-08] MEDS: ROPINIROLE 0.5 MG PO SCH (20:06)
[2018-09-09] MEDS: Acetaminophen 325 MG Tab PO SCH ×4 (02:55→20:24)
[2018-09-09] MEDS: SERTRALINE 100 MG PO SCH (07:57)
[2018-09-09] MEDS: Docusate Sodium 100 MG Cap PO SCH (07:57)
[2018-09-09] MEDS: METOPROLOL 25 MG PO SCH (07:57)
[2018-09-09] MEDS: GABAPENTIN 100 MG PO SCH ×2 (07:57→13:52)
[2018-09-09] MEDS: [UNRECOGNIZED DRUG - OTHER] PO SCH (07:57)
[2018-09-09] MEDS: Famotidine 20 MG Tab PO SCH (07:58)
[2018-09-09] MEDS: Melatonin 3 MG Tab PO SCH (20:25)
[2018-09-09] MEDS: ROPINIROLE 0.5 MG PO SCH (20:26)
[2018-09-09] MEDS: WARFARIN PO SCH (20:27)
[2018-09-10] MEDS: Acetaminophen 325 MG Tab PO SCH ×4 (01:19→20:17)
[2018-09-10] MEDS: GABAPENTIN 100 MG PO SCH ×2 (07:30→12:29)
[2018-09-10] MEDS: SERTRALINE 100 MG PO SCH (07:30)
[2018-09-10] MEDS: METOPROLOL 25 MG PO SCH (07:30)
[2018-09-10] MEDS: Docusate Sodium 100 MG Cap PO SCH (07:30)
[2018-09-10] MEDS: [UNRECOGNIZED DRUG - OTHER] PO SCH (07:30)
[2018-09-10] MEDS: Famotidine 20 MG Tab PO SCH (07:30)
[2018-09-10] MEDS: Melatonin 3 MG Tab PO SCH (20:16)
[2018-09-10] MEDS: ROPINIROLE 0.5 MG PO SCH (20:16)
[2018-09-10] MEDS: WARFARIN 5 MG PO SCH (20:19)
[2018-09-11] MEDS: Acetaminophen 325 MG Tab PO SCH ×4 (05:04→20:29)
[2018-09-11] MEDS: [UNRECOGNIZED DRUG - OTHER] PO SCH (08:25)
[2018-09-11] MEDS: METOPROLOL 25 MG PO SCH (08:25)
[2018-09-11] MEDS: GABAPENTIN 100 MG PO SCH ×2 (08:25→12:24)
[2018-09-11] MEDS: SERTRALINE 100 MG PO SCH (08:26)
[2018-09-11] MEDS: Docusate Sodium 100 MG Cap PO SCH (08:26)
[2018-09-11] MEDS: Famotidine 20 MG Tab PO SCH (08:26)
[2018-09-11] MEDS: Melatonin 3 MG Tab PO SCH (20:29)
[2018-09-11] MEDS: WARFARIN 5 MG PO SCH (20:30)
[2018-09-11] MEDS: ROPINIROLE 0.5 MG PO SCH (20:30)
[2018-09-12] MEDS: Acetaminophen 325 MG Tab PO SCH ×4 (04:06→20:22)
[2018-09-12] MEDS: GABAPENTIN 100 MG PO SCH ×2 (09:13→13:12)
[2018-09-12] MEDS: Famotidine 20 MG Tab PO SCH (09:13)
[2018-09-12] MEDS: METOPROLOL 25 MG PO SCH (09:13)
[2018-09-12] MEDS: Docusate Sodium 100 MG Cap PO SCH (09:14)
[2018-09-12] MEDS: SERTRALINE 100 MG PO SCH (09:14)
[2018-09-12] MEDS: [UNRECOGNIZED DRUG - OTHER] PO SCH (09:14)
[2018-09-12] MEDS: ROPINIROLE 0.5 MG PO SCH (20:22)
[2018-09-12] MEDS: Melatonin 3 MG Tab PO SCH (20:22)
[2018-09-12] MEDS: WARFARIN PO SCH (20:23)
[2018-09-13] MEDS: Acetaminophen 325 MG Tab PO SCH ×4 (04:23→19:56)
[2018-09-13] MEDS: Famotidine 20 MG Tab PO SCH (07:54)
[2018-09-13] MEDS: METOPROLOL 25 MG PO SCH (07:54)
[2018-09-13] MEDS: Docusate Sodium 100 MG Cap PO SCH (07:55)
[2018-09-13] MEDS: SERTRALINE 100 MG PO SCH (07:55)
[2018-09-13] MEDS: [UNRECOGNIZED DRUG - OTHER] PO SCH (07:55)
[2018-09-13] MEDS: GABAPENTIN 100 MG PO SCH ×2 (07:55→12:17)
[2018-09-13] MEDS: Melatonin 3 MG Tab PO SCH (19:55)
[2018-09-13] MEDS: WARFARIN 5 MG PO SCH (19:57)
[2018-09-13] MEDS: ROPINIROLE 0.5 MG PO SCH (19:58)
[2018-09-14] MEDS: Acetaminophen 325 MG Tab PO SCH ×4 (01:05→19:49)
[2018-09-14] MEDS: Docusate Sodium 100 MG Cap PO SCH (08:32)
[2018-09-14] MEDS: Famotidine 20 MG Tab PO SCH (08:33)
[2018-09-14] MEDS: [UNRECOGNIZED DRUG - OTHER] PO SCH (08:33)
[2018-09-14] MEDS: METOPROLOL 25 MG PO SCH (08:33)
[2018-09-14] MEDS: GABAPENTIN 100 MG PO SCH ×2 (08:34→12:22)
[2018-09-14] MEDS: SERTRALINE 100 MG PO SCH (08:34)
[2018-09-14] MEDS: Melatonin 3 MG Tab PO SCH (19:51)
[2018-09-14] MEDS: ROPINIROLE 0.5 MG PO SCH (19:52)
[2018-09-14] MEDS: WARFARIN 5 MG PO SCH (19:52)
[2018-09-15] MEDS: Acetaminophen 325 MG Tab PO SCH ×4 (03:53→21:06)
[2018-09-15] MEDS: [UNRECOGNIZED DRUG - OTHER] PO SCH (08:43)
[2018-09-15] MEDS: METOPROLOL 25 MG PO SCH (08:43)
[2018-09-15] MEDS: GABAPENTIN 100 MG PO SCH ×2 (08:43→12:42)
[2018-09-15] MEDS: Docusate Sodium 100 MG Cap PO SCH (08:43)
[2018-09-15] MEDS: Famotidine 20 MG Tab PO SCH (08:43)
[2018-09-15] MEDS: SERTRALINE 100 MG PO SCH (08:44)
[2018-09-15] MEDS: ROPINIROLE 0.5 MG PO SCH (21:05)
[2018-09-15] MEDS: Melatonin 3 MG Tab PO SCH (21:05)
[2018-09-15] MEDS: WARFARIN 5 MG PO SCH (21:07)
[2018-09-16] MEDS: Acetaminophen 325 MG Tab PO SCH ×4 (01:34→20:39)
[2018-09-16] MEDS: SERTRALINE 100 MG PO SCH (09:02)
[2018-09-16] MEDS: METOPROLOL 25 MG PO SCH (09:02)
[2018-09-16] MEDS: [UNRECOGNIZED DRUG - OTHER] PO SCH (09:02)
[2018-09-16] MEDS: GABAPENTIN 100 MG PO SCH ×2 (09:02→14:41)
[2018-09-16] MEDS: Docusate Sodium 100 MG Cap PO SCH (09:03)
[2018-09-16] MEDS: Famotidine 20 MG Tab PO SCH (09:03)
[2018-09-16] MEDS: Melatonin 3 MG Tab PO SCH (20:38)
[2018-09-16] MEDS: ROPINIROLE 0.5 MG PO SCH (20:38)
[2018-09-16] MEDS: WARFARIN PO SCH (20:40)
[2018-09-17] MEDS: Acetaminophen 325 MG Tab PO SCH ×4 (06:23→19:40)
[2018-09-17] MEDS: Famotidine 20 MG Tab PO SCH (08:14)
[2018-09-17] MEDS: Docusate Sodium 100 MG Cap PO SCH (08:14)
[2018-09-17] MEDS: SERTRALINE 100 MG PO SCH (08:15)
[2018-09-17] MEDS: [UNRECOGNIZED DRUG - OTHER] PO SCH (08:15)
[2018-09-17] MEDS: METOPROLOL 25 MG PO SCH (08:15)
[2018-09-17] MEDS: GABAPENTIN 100 MG PO SCH ×2 (08:16→12:48)
[2018-09-17] MEDS: Melatonin 3 MG Tab PO SCH (19:39)
[2018-09-17] MEDS: ROPINIROLE 0.5 MG PO SCH (19:39)
[2018-09-17] MEDS: WARFARIN 5 MG PO SCH (19:41)
[2018-09-18] MEDS: Acetaminophen 325 MG Tab PO SCH ×4 (06:26→19:50)
[2018-09-18] MEDS: Famotidine 20 MG Tab PO SCH (07:42)
[2018-09-18] MEDS: Docusate Sodium 100 MG Cap PO SCH (07:42)
[2018-09-18] MEDS: [UNRECOGNIZED DRUG - OTHER] PO SCH (07:43)
[2018-09-18] MEDS: SERTRALINE 100 MG PO SCH (07:43)
[2018-09-18] MEDS: GABAPENTIN 100 MG PO SCH ×2 (07:43→12:57)
[2018-09-18] MEDS: METOPROLOL 25 MG PO SCH (07:44)
[2018-09-18] MEDS: ROPINIROLE 0.5 MG PO SCH (19:50)
[2018-09-18] MEDS: Melatonin 3 MG Tab PO SCH (19:50)
[2018-09-18] MEDS: WARFARIN 5 MG PO SCH (19:51)
[2018-09-19] MEDS: Acetaminophen 325 MG Tab PO SCH ×4 (02:00→20:30)
[2018-09-19] MEDS: [UNRECOGNIZED DRUG - OTHER] PO SCH (07:28)
[2018-09-19] MEDS: METOPROLOL 25 MG PO SCH (07:28)
[2018-09-19] MEDS: SERTRALINE 100 MG PO SCH (07:28)
[2018-09-19] MEDS: Famotidine 20 MG Tab PO SCH (07:29)
[2018-09-19] MEDS: Docusate Sodium 100 MG Cap PO SCH (07:29)
[2018-09-19] MEDS: GABAPENTIN 100 MG PO SCH ×2 (07:29→12:46)
[2018-09-19] MEDS: Melatonin 3 MG Tab PO SCH (20:30)
[2018-09-19] MEDS: ROPINIROLE 0.5 MG PO SCH (20:31)
[2018-09-19] MEDS: WARFARIN PO SCH (20:32)
[2018-09-20] MEDS: Acetaminophen 325 MG Tab PO SCH ×4 (01:33→19:49)
[2018-09-20] MEDS: Famotidine 20 MG Tab PO SCH (08:08)
[2018-09-20] MEDS: METOPROLOL 25 MG PO SCH (08:08)
[2018-09-20] MEDS: GABAPENTIN 100 MG PO SCH ×2 (08:08→12:41)
[2018-09-20] MEDS: SERTRALINE 100 MG PO SCH (08:08)
[2018-09-20] MEDS: Docusate Sodium 100 MG Cap PO SCH (08:08)
[2018-09-20] MEDS: [UNRECOGNIZED DRUG - OTHER] PO SCH (08:08)
[2018-09-20] MEDS: ROPINIROLE 0.5 MG PO SCH (19:49)
[2018-09-20] MEDS: WARFARIN 5 MG PO SCH (19:49)
[2018-09-20] MEDS: Melatonin 3 MG Tab PO SCH (19:49)
[2018-09-21] MEDS: Acetaminophen 325 MG Tab PO SCH ×4 (01:44→19:49)
[2018-09-21] MEDS: GABAPENTIN 100 MG PO SCH ×2 (09:32→13:42)
[2018-09-21] MEDS: Docusate Sodium 100 MG Cap PO SCH (09:33)
[2018-09-21] MEDS: Famotidine 20 MG Tab PO SCH (09:33)
[2018-09-21] MEDS: [UNRECOGNIZED DRUG - OTHER] PO SCH (09:35)
[2018-09-21] MEDS: METOPROLOL 25 MG PO SCH (09:35)
[2018-09-21] MEDS: SERTRALINE 100 MG PO SCH (09:35)
[2018-09-21] MEDS: WARFARIN 5 MG PO SCH (19:49)
[2018-09-21] MEDS: Melatonin 3 MG Tab PO SCH (19:50)
[2018-09-21] MEDS: ROPINIROLE 0.5 MG PO SCH (19:50)
[2018-09-22] MEDS: Acetaminophen 325 MG Tab PO SCH ×4 (01:53→19:35)
[2018-09-22] MEDS: Famotidine 20 MG Tab PO SCH (08:03)
[2018-09-22] MEDS: Docusate Sodium 100 MG Cap PO SCH (08:04)
[2018-09-22] MEDS: GABAPENTIN 100 MG PO SCH ×2 (08:05→13:09)
[2018-09-22] MEDS: [UNRECOGNIZED DRUG - OTHER] PO SCH (08:05)
[2018-09-22] MEDS: SERTRALINE 100 MG PO SCH (08:06)
[2018-09-22] MEDS: METOPROLOL 25 MG PO SCH (08:06)
[2018-09-22] MEDS: WARFARIN 5 MG PO SCH (19:35)
[2018-09-22] MEDS: Melatonin 3 MG Tab PO SCH (19:35)
[2018-09-22] MEDS: ROPINIROLE 0.5 MG PO SCH (19:36)
[2018-09-23] MEDS: Acetaminophen 325 MG Tab PO SCH ×4 (01:24→19:52)
[2018-09-23] MEDS: Docusate Sodium 100 MG Cap PO SCH (07:47)
[2018-09-23] MEDS: GABAPENTIN 100 MG PO SCH ×2 (07:47→12:42)
[2018-09-23] MEDS: METOPROLOL 25 MG PO SCH (07:48)
[2018-09-23] MEDS: [UNRECOGNIZED DRUG - OTHER] PO SCH (07:48)
[2018-09-23] MEDS: SERTRALINE 100 MG PO SCH (07:48)
[2018-09-23] MEDS: Famotidine 20 MG Tab PO SCH (07:49)
[2018-09-23] MEDS: Melatonin 3 MG Tab PO SCH (19:52)
[2018-09-23] MEDS: ROPINIROLE 0.5 MG PO SCH (19:52)
[2018-09-23] MEDS: WARFARIN PO SCH (19:52)
[2018-09-24] MEDS: Acetaminophen 325 MG Tab PO SCH ×4 (01:26→19:58)
[2018-09-24] MEDS: SERTRALINE 100 MG PO SCH (07:28)
[2018-09-24] MEDS: METOPROLOL 25 MG PO SCH (07:28)
[2018-09-24] MEDS: GABAPENTIN 100 MG PO SCH ×2 (07:28→13:49)
[2018-09-24] MEDS: [UNRECOGNIZED DRUG - OTHER] PO SCH (07:29)
[2018-09-24] MEDS: Famotidine 20 MG Tab PO SCH (07:29)
[2018-09-24] MEDS: Docusate Sodium 100 MG Cap PO SCH (07:29)
[2018-09-24] MEDS: Melatonin 3 MG Tab PO SCH (19:58)
[2018-09-24] MEDS: WARFARIN 5 MG PO SCH (19:59)
[2018-09-24] MEDS: ROPINIROLE 0.5 MG PO SCH (19:59)
[2018-09-25] MEDS: Acetaminophen 325 MG Tab PO SCH ×4 (01:46→20:14)
[2018-09-25] MEDS: [UNRECOGNIZED DRUG - OTHER] PO SCH (08:01)
[2018-09-25] MEDS: Famotidine 20 MG Tab PO SCH (08:01)
[2018-09-25] MEDS: Docusate Sodium 100 MG Cap PO SCH (08:01)
[2018-09-25] MEDS: SERTRALINE 100 MG PO SCH (08:01)
[2018-09-25] MEDS: GABAPENTIN 100 MG PO SCH ×2 (08:01→14:06)
[2018-09-25] MEDS: METOPROLOL 25 MG PO SCH (08:01)
[2018-09-25] MEDS: WARFARIN 5 MG PO SCH (20:13)
[2018-09-25] MEDS: Melatonin 3 MG Tab PO SCH (20:13)
[2018-09-25] MEDS: ROPINIROLE 0.5 MG PO SCH (20:13)
[2018-09-26] MEDS: Acetaminophen 325 MG Tab PO SCH ×4 (02:00→20:43)
[2018-09-26] MEDS: Famotidine 20 MG Tab PO SCH (08:53)
[2018-09-26] MEDS: METOPROLOL 25 MG PO SCH (08:54)
[2018-09-26] MEDS: [UNRECOGNIZED DRUG - OTHER] PO SCH (08:56)
[2018-09-26] MEDS: GABAPENTIN 100 MG PO SCH ×2 (08:56→13:26)
[2018-09-26] MEDS: Docusate Sodium 100 MG Cap PO SCH (08:57)
[2018-09-26] MEDS: SERTRALINE 100 MG PO SCH (08:58)
[2018-09-26] MEDS: ROPINIROLE 0.5 MG PO SCH (20:42)
[2018-09-26] MEDS: WARFARIN PO SCH (20:43)
[2018-09-26] MEDS: Melatonin 3 MG Tab PO SCH (20:43)
[2018-09-27] MEDS: Acetaminophen 325 MG Tab PO SCH ×4 (03:09→21:00)
[2018-09-27] MEDS: Docusate Sodium 100 MG Cap PO SCH (07:33)
[2018-09-27] MEDS: [UNRECOGNIZED DRUG - OTHER] PO SCH (07:34)
[2018-09-27] MEDS: Famotidine 20 MG Tab PO SCH (07:34)
[2018-09-27] MEDS: METOPROLOL 25 MG PO SCH (07:34)
[2018-09-27] MEDS: GABAPENTIN 100 MG PO SCH ×2 (07:35→12:34)
[2018-09-27] MEDS: SERTRALINE 100 MG PO SCH (07:35)
[2018-09-27] MEDS: WARFARIN 5 MG PO SCH (21:00)
[2018-09-27] MEDS: ROPINIROLE 0.5 MG PO SCH (21:00)
[2018-09-27] MEDS: Melatonin 3 MG Tab PO SCH (21:00)
[2018-09-28] MEDS: Acetaminophen 325 MG Tab PO SCH ×4 (01:34→19:19)
[2018-09-28] MEDS: METOPROLOL 25 MG PO SCH (07:18)
[2018-09-28] MEDS: [UNRECOGNIZED DRUG - OTHER] PO SCH (07:18)
[2018-09-28] MEDS: SERTRALINE 100 MG PO SCH (07:18)
[2018-09-28] MEDS: GABAPENTIN 100 MG PO SCH ×2 (07:18→12:06)
[2018-09-28] MEDS: Famotidine 20 MG Tab PO SCH (07:19)
[2018-09-28] MEDS: Docusate Sodium 100 MG Cap PO SCH (07:19)
[2018-09-28] MEDS: Melatonin 3 MG Tab PO SCH (19:20)
[2018-09-28] MEDS: ROPINIROLE 0.5 MG PO SCH (19:21)
[2018-09-28] MEDS: WARFARIN 5 MG PO SCH (19:24)
[2018-09-29] MEDS: Acetaminophen 325 MG Tab PO SCH ×4 (02:42→19:51)
[2018-09-29] MEDS: METOPROLOL 25 MG PO SCH (07:26)
[2018-09-29] MEDS: Famotidine 20 MG Tab PO SCH (07:26)
[2018-09-29] MEDS: GABAPENTIN 100 MG PO SCH ×2 (07:26→12:31)
[2018-09-29] MEDS: SERTRALINE 100 MG PO SCH (07:26)
[2018-09-29] MEDS: [UNRECOGNIZED DRUG - OTHER] PO SCH (07:26)
[2018-09-29] MEDS: Docusate Sodium 100 MG Cap PO SCH (07:27)
[2018-09-29] MEDS: WARFARIN 5 MG PO SCH (19:50)
[2018-09-29] MEDS: Melatonin 3 MG Tab PO SCH (19:51)
[2018-09-29] MEDS: ROPINIROLE 0.5 MG PO SCH (19:51)
[2018-09-30] MEDS: Acetaminophen 325 MG Tab PO SCH ×4 (02:05→19:46)
[2018-09-30] MEDS: METOPROLOL 25 MG PO SCH (07:53)
[2018-09-30] MEDS: [UNRECOGNIZED DRUG - OTHER] PO SCH (07:53)
[2018-09-30] MEDS: GABAPENTIN 100 MG PO SCH ×2 (07:53→12:26)
[2018-09-30] MEDS: Docusate Sodium 100 MG Cap PO SCH (07:54)
[2018-09-30] MEDS: SERTRALINE 100 MG PO SCH (07:54)
[2018-09-30] MEDS: Famotidine 20 MG Tab PO SCH (07:54)
[2018-09-30] MEDS: ROPINIROLE 0.5 MG PO SCH (19:47)
[2018-09-30] MEDS: Melatonin 3 MG Tab PO SCH (19:48)
[2018-09-30] MEDS: WARFARIN PO SCH (19:48)
[2018-10-01] MEDS: Acetaminophen 325 MG Tab PO SCH ×4 (01:58→20:09)
[2018-10-01] MEDS: Famotidine 20 MG Tab PO SCH (07:48)
[2018-10-01] MEDS: GABAPENTIN 100 MG PO SCH ×2 (07:48→12:54)
[2018-10-01] MEDS: Docusate Sodium 100 MG Cap PO SCH (07:48)
[2018-10-01] MEDS: METOPROLOL 25 MG PO SCH (07:50)
[2018-10-01] MEDS: SERTRALINE 100 MG PO SCH (07:50)
[2018-10-01] MEDS: [UNRECOGNIZED DRUG - OTHER] PO SCH (07:50)
[2018-10-01] MEDS: WARFARIN 5 MG PO SCH (20:08)
[2018-10-01] MEDS: ROPINIROLE 0.5 MG PO SCH (20:08)
[2018-10-01] MEDS: Melatonin 3 MG Tab PO SCH (20:09)
[2018-10-02] MEDS: Acetaminophen 325 MG Tab PO SCH ×4 (01:37→19:53)
[2018-10-02] MEDS: Famotidine 20 MG Tab PO SCH (07:29)
[2018-10-02] MEDS: Docusate Sodium 100 MG Cap PO SCH (07:29)
[2018-10-02] MEDS: METOPROLOL 25 MG PO SCH (07:30)
[2018-10-02] MEDS: SERTRALINE 100 MG PO SCH (07:30)
[2018-10-02] MEDS: [UNRECOGNIZED DRUG - OTHER] PO SCH (07:30)
[2018-10-02] MEDS: GABAPENTIN 100 MG PO SCH ×2 (07:31→13:24)
[2018-10-02] MEDS: Melatonin 3 MG Tab PO SCH (19:53)
[2018-10-02] MEDS: ROPINIROLE 0.5 MG PO SCH (19:54)
[2018-10-02] MEDS: WARFARIN 5 MG PO SCH (19:56)
[2018-10-03] MEDS: Acetaminophen 325 MG Tab PO SCH ×4 (04:27→19:56)
[2018-10-03] MEDS: METOPROLOL 25 MG PO SCH (07:39)
[2018-10-03] MEDS: SERTRALINE 100 MG PO SCH (07:39)
[2018-10-03] MEDS: GABAPENTIN 100 MG PO SCH ×2 (07:39→13:04)
[2018-10-03] MEDS: [UNRECOGNIZED DRUG - OTHER] PO SCH (07:40)
[2018-10-03] MEDS: Docusate Sodium 100 MG Cap PO SCH (07:40)
[2018-10-03] MEDS: Famotidine 20 MG Tab PO SCH (07:40)
[2018-10-03] MEDS: WARFARIN PO SCH (19:52)
[2018-10-03] MEDS: ROPINIROLE 0.5 MG PO SCH (19:53)
[2018-10-03] MEDS: Melatonin 3 MG Tab PO SCH (19:56)
[2018-10-04] MEDS: Acetaminophen 325 MG Tab PO SCH ×4 (02:29→19:25)
[2018-10-04] MEDS: METOPROLOL 25 MG PO SCH (07:47)
[2018-10-04] MEDS: SERTRALINE 100 MG PO SCH (07:47)
[2018-10-04] MEDS: [UNRECOGNIZED DRUG - OTHER] PO SCH (07:47)
[2018-10-04] MEDS: GABAPENTIN 100 MG PO SCH ×2 (07:48→12:57)
[2018-10-04] MEDS: Docusate Sodium 100 MG Cap PO SCH (07:49)
[2018-10-04] MEDS: Famotidine 20 MG Tab PO SCH (07:49)
[2018-10-04] MEDS: ROPINIROLE 0.5 MG PO SCH (19:24)
[2018-10-04] MEDS: WARFARIN 5 MG PO SCH (19:24)
[2018-10-04] MEDS: Melatonin 3 MG Tab PO SCH (19:25)
[2018-10-05] MEDS: Acetaminophen 325 MG Tab PO SCH ×4 (01:54→19:52)
[2018-10-05] MEDS: [UNRECOGNIZED DRUG - OTHER] PO SCH (08:00)
[2018-10-05] MEDS: METOPROLOL 25 MG PO SCH (08:00)
[2018-10-05] MEDS: Docusate Sodium 100 MG Cap PO SCH ×2 (08:03→08:08)
[2018-10-05] MEDS: SERTRALINE 100 MG PO SCH (08:03)
[2018-10-05] MEDS: Famotidine 20 MG Tab PO SCH (08:03)
[2018-10-05] MEDS: GABAPENTIN 100 MG PO SCH ×2 (08:03→12:53)
[2018-10-05] MEDS: WARFARIN 5 MG PO SCH (19:53)
[2018-10-05] MEDS: Melatonin 3 MG Tab PO SCH (19:53)
[2018-10-05] MEDS: ROPINIROLE 0.5 MG PO SCH (19:53)
[2018-10-06] MEDS: Acetaminophen 325 MG Tab PO SCH ×5 (04:00→19:22)
[2018-10-06] MEDS: Docusate Sodium 100 MG Cap PO SCH (07:44)
[2018-10-06] MEDS: Famotidine 20 MG Tab PO SCH (07:45)
[2018-10-06] MEDS: METOPROLOL 25 MG PO SCH (07:45)
[2018-10-06] MEDS: [UNRECOGNIZED DRUG - OTHER] PO SCH (07:45)
[2018-10-06] MEDS: SERTRALINE 100 MG PO SCH (07:45)
[2018-10-06] MEDS: GABAPENTIN 100 MG PO SCH ×2 (07:46→16:00)
[2018-10-06] MEDS: Calcium Carbonate 750 MG Tab.Chew PO PRN ×2 (07:47→16:18)
[2018-10-06] MEDS: Melatonin 3 MG Tab PO SCH (19:22)
[2018-10-06] MEDS: ROPINIROLE 0.5 MG PO SCH (19:23)
[2018-10-06] MEDS: WARFARIN 5 MG PO SCH (19:23)
[2018-10-07] MEDS: Acetaminophen 325 MG Tab PO SCH ×4 (02:01→19:17)
[2018-10-07] MEDS: SERTRALINE 100 MG PO SCH (08:09)
[2018-10-07] MEDS: [UNRECOGNIZED DRUG - OTHER] PO SCH (08:09)
[2018-10-07] MEDS: METOPROLOL 25 MG PO SCH (08:09)
[2018-10-07] MEDS: GABAPENTIN 100 MG PO SCH ×2 (08:09→12:34)
[2018-10-07] MEDS: Famotidine 20 MG Tab PO SCH (08:11)
[2018-10-07] MEDS: Docusate Sodium 100 MG Cap PO SCH (08:12)
[2018-10-07] MEDS: WARFARIN PO SCH (19:17)
[2018-10-07] MEDS: Melatonin 3 MG Tab PO SCH (19:17)
[2018-10-07] MEDS: ROPINIROLE 0.5 MG PO SCH (19:17)
[2018-10-08] MEDS: Acetaminophen 325 MG Tab PO SCH ×4 (02:25→19:37)
[2018-10-08] MEDS: Docusate Sodium 100 MG Cap PO SCH (08:07)
[2018-10-08] MEDS: METOPROLOL 25 MG PO SCH (08:08)
[2018-10-08] MEDS: Famotidine 20 MG Tab PO SCH (08:08)
[2018-10-08] MEDS: [UNRECOGNIZED DRUG - OTHER] PO SCH (08:08)
[2018-10-08] MEDS: GABAPENTIN 100 MG PO SCH ×2 (08:09→13:18)
[2018-10-08] MEDS: SERTRALINE 100 MG PO SCH (08:09)
[2018-10-08] MEDS: Melatonin 3 MG Tab PO SCH (19:37)
[2018-10-08] MEDS: WARFARIN 5 MG PO SCH (19:37)
[2018-10-08] MEDS: ROPINIROLE 0.5 MG PO SCH (19:38)
[2018-10-09] MEDS: Acetaminophen 325 MG Tab PO SCH ×4 (01:30→19:38)
[2018-10-09] MEDS: Famotidine 20 MG Tab PO SCH (07:43)
[2018-10-09] MEDS: METOPROLOL 25 MG PO SCH (07:44)
[2018-10-09] MEDS: Docusate Sodium 100 MG Cap PO SCH (07:44)
[2018-10-09] MEDS: GABAPENTIN 100 MG PO SCH ×2 (07:44→13:14)
[2018-10-09] MEDS: [UNRECOGNIZED DRUG - OTHER] PO SCH (07:44)
[2018-10-09] MEDS: SERTRALINE 100 MG PO SCH (07:45)
[2018-10-09] MEDS: Melatonin 3 MG Tab PO SCH (19:37)
[2018-10-09] MEDS: ROPINIROLE 0.5 MG PO SCH (19:38)
[2018-10-09] MEDS: WARFARIN 5 MG PO SCH (19:39)
[2018-10-10] MEDS: Acetaminophen 325 MG Tab PO SCH ×4 (02:29→20:05)
[2018-10-10] MEDS: Docusate Sodium 100 MG Cap PO SCH (08:08)
[2018-10-10] MEDS: [UNRECOGNIZED DRUG - OTHER] PO SCH (08:08)
[2018-10-10] MEDS: Famotidine 20 MG Tab PO SCH (08:08)
[2018-10-10] MEDS: METOPROLOL 25 MG PO SCH (08:08)
[2018-10-10] MEDS: SERTRALINE 100 MG PO SCH (08:08)
[2018-10-10] MEDS: GABAPENTIN 100 MG PO SCH ×2 (08:09→13:39)
[2018-10-10] MEDS: Melatonin 3 MG Tab PO SCH (20:05)
[2018-10-10] MEDS: WARFARIN PO SCH (20:06)
[2018-10-10] MEDS: ROPINIROLE 0.5 MG PO SCH (20:06)
[2018-10-11] MEDS: Acetaminophen 325 MG Tab PO SCH ×4 (03:31→20:32)
[2018-10-11] MEDS: Famotidine 20 MG Tab PO SCH (08:18)
[2018-10-11] MEDS: SERTRALINE 100 MG PO SCH (08:18)
[2018-10-11] MEDS: GABAPENTIN 100 MG PO SCH ×2 (08:18→12:19)
[2018-10-11] MEDS: [UNRECOGNIZED DRUG - OTHER] PO SCH (08:18)
[2018-10-11] MEDS: METOPROLOL 25 MG PO SCH (08:18)
[2018-10-11] MEDS: Docusate Sodium 100 MG Cap PO SCH (08:19)
[2018-10-11] MEDS: WARFARIN 5 MG PO SCH (20:30)
[2018-10-11] MEDS: ROPINIROLE 0.5 MG PO SCH (20:31)
[2018-10-11] MEDS: Melatonin 3 MG Tab PO SCH (20:31)
[2018-10-12] MEDS: Acetaminophen 325 MG Tab PO SCH ×4 (02:33→19:23)
[2018-10-12] MEDS: Famotidine 20 MG Tab PO SCH (09:04)
[2018-10-12] MEDS: Docusate Sodium 100 MG Cap PO SCH (09:05)
[2018-10-12] MEDS: METOPROLOL 25 MG PO SCH (09:05)
[2018-10-12] MEDS: SERTRALINE 100 MG PO SCH (09:05)
[2018-10-12] MEDS: [UNRECOGNIZED DRUG - OTHER] PO SCH (09:06)
[2018-10-12] MEDS: GABAPENTIN 100 MG PO SCH ×2 (09:07→12:24)
[2018-10-12] MEDS: Melatonin 3 MG Tab PO SCH (19:24)
[2018-10-12] MEDS: ROPINIROLE 0.5 MG PO SCH (19:26)
[2018-10-12] MEDS: WARFARIN 5 MG PO SCH (19:26)
[2018-10-13] MEDS: Acetaminophen 325 MG Tab PO SCH ×4 (02:25→19:36)
[2018-10-13] MEDS: [UNRECOGNIZED DRUG - OTHER] PO SCH (07:33)
[2018-10-13] MEDS: SERTRALINE 100 MG PO SCH (07:33)
[2018-10-13] MEDS: METOPROLOL 25 MG PO SCH (07:33)
[2018-10-13] MEDS: Docusate Sodium 100 MG Cap PO SCH (07:34)
[2018-10-13] MEDS: GABAPENTIN 100 MG PO SCH ×2 (07:34→12:41)
[2018-10-13] MEDS: Famotidine 20 MG Tab PO SCH (07:34)
[2018-10-13] MEDS: WARFARIN 5 MG PO SCH (19:35)
[2018-10-13] MEDS: ROPINIROLE 0.5 MG PO SCH (19:35)
[2018-10-13] MEDS: Melatonin 3 MG Tab PO SCH (19:36)
[2018-10-14] MEDS: Acetaminophen 325 MG Tab PO SCH ×4 (05:47→19:47)
[2018-10-14] MEDS: [UNRECOGNIZED DRUG - OTHER] PO SCH (07:55)
[2018-10-14] MEDS: METOPROLOL 25 MG PO SCH (07:55)
[2018-10-14] MEDS: Famotidine 20 MG Tab PO SCH (07:55)
[2018-10-14] MEDS: SERTRALINE 100 MG PO SCH (07:55)
[2018-10-14] MEDS: Docusate Sodium 100 MG Cap PO SCH (07:56)
[2018-10-14] MEDS: GABAPENTIN 100 MG PO SCH ×2 (07:56→12:16)
[2018-10-14] MEDS: Melatonin 3 MG Tab PO SCH (19:47)
[2018-10-14] MEDS: WARFARIN PO SCH (19:48)
[2018-10-14] MEDS: ROPINIROLE 0.5 MG PO SCH (19:48)
[2018-10-15] MEDS: Acetaminophen 325 MG Tab PO SCH ×4 (04:07→20:05)
[2018-10-15] MEDS: METOPROLOL 25 MG PO SCH (08:25)
[2018-10-15] MEDS: Famotidine 20 MG Tab PO SCH (08:25)
[2018-10-15] MEDS: GABAPENTIN 100 MG PO SCH ×2 (08:25→13:14)
[2018-10-15] MEDS: Docusate Sodium 100 MG Cap PO SCH (08:25)
[2018-10-15] MEDS: [UNRECOGNIZED DRUG - OTHER] PO SCH (08:26)
[2018-10-15] MEDS: SERTRALINE 100 MG PO SCH (08:26)
[2018-10-15] MEDS: ROPINIROLE 0.5 MG PO SCH (20:04)
[2018-10-15] MEDS: WARFARIN 5 MG PO SCH (20:04)
[2018-10-15] MEDS: Melatonin 3 MG Tab PO SCH (20:04)
[2018-10-16] MEDS: Acetaminophen 325 MG Tab PO SCH ×4 (02:23→19:55)
[2018-10-16] MEDS: GABAPENTIN 100 MG PO SCH ×2 (08:34→12:31)
[2018-10-16] MEDS: [UNRECOGNIZED DRUG - OTHER] PO SCH (08:35)
[2018-10-16] MEDS: Famotidine 20 MG Tab PO SCH (08:35)
[2018-10-16] MEDS: Docusate Sodium 100 MG Cap PO SCH (08:35)
[2018-10-16] MEDS: METOPROLOL 25 MG PO SCH (08:36)
[2018-10-16] MEDS: SERTRALINE 100 MG PO SCH (08:36)
[2018-10-16] MEDS: Calcium Carbonate 750 MG Tab.Chew PO PRN (12:31)
[2018-10-16] MEDS ORDERED: Miconazole 2% Top Powder 45 GM Container TOP SCH (14:58)
[2018-10-16] MEDS: ROPINIROLE 0.5 MG PO SCH (19:56)
[2018-10-16] MEDS: Melatonin 3 MG Tab PO SCH (19:56)
[2018-10-16] MEDS: Miconazole 2% Top Powder 45 GM Container TOP SCH (19:56)
[2018-10-16] MEDS: WARFARIN 5 MG PO SCH (19:56)
[2018-10-17] MEDS: Acetaminophen 325 MG Tab PO SCH ×4 (02:50→20:01)
[2018-10-17] MEDS: Famotidine 20 MG Tab PO SCH (08:15)
[2018-10-17] MEDS: METOPROLOL 25 MG PO SCH (08:15)
[2018-10-17] MEDS: SERTRALINE 100 MG PO SCH (08:15)
[2018-10-17] MEDS: Docusate Sodium 100 MG Cap PO SCH (08:15)
[2018-10-17] MEDS: Miconazole 2% Top Powder 45 GM Container TOP SCH ×3 (08:16→19:58)
[2018-10-17] MEDS: [UNRECOGNIZED DRUG - OTHER] PO SCH (08:16)
[2018-10-17] MEDS: GABAPENTIN 100 MG PO SCH ×2 (08:16→14:28)
[2018-10-17] MEDS: Melatonin 3 MG Tab PO SCH (20:00)
[2018-10-17] MEDS: ROPINIROLE 0.5 MG PO SCH (20:01)
[2018-10-17] MEDS: WARFARIN PO SCH (20:03)
[2018-10-18] MEDS: Acetaminophen 325 MG Tab PO SCH ×4 (01:10→19:21)
[2018-10-18] MEDS: Famotidine 20 MG Tab PO SCH (08:26)
[2018-10-18] MEDS: Docusate Sodium 100 MG Cap PO SCH (08:26)
[2018-10-18] MEDS: GABAPENTIN 100 MG PO SCH ×2 (08:26→13:52)
[2018-10-18] MEDS: SERTRALINE 100 MG PO SCH (08:27)
[2018-10-18] MEDS: METOPROLOL 25 MG PO SCH (08:27)
[2018-10-18] MEDS: [UNRECOGNIZED DRUG - OTHER] PO SCH (08:27)
[2018-10-18] MEDS: Miconazole 2% Top Powder 45 GM Container TOP SCH ×3 (09:02→19:19)
[2018-10-18] MEDS: Melatonin 3 MG Tab PO SCH (19:20)
[2018-10-18] MEDS: ROPINIROLE 0.5 MG PO SCH (19:23)
[2018-10-18] MEDS: WARFARIN 5 MG PO SCH (19:23)
[2018-10-19] MEDS: Acetaminophen 325 MG Tab PO SCH ×4 (01:57→19:10)
[2018-10-19] MEDS: [UNRECOGNIZED DRUG - OTHER] PO SCH (07:18)
[2018-10-19] MEDS: SERTRALINE 100 MG PO SCH (07:18)
[2018-10-19] MEDS: Docusate Sodium 100 MG Cap PO SCH (07:18)
[2018-10-19] MEDS: METOPROLOL 25 MG PO SCH (07:18)
[2018-10-19] MEDS: Famotidine 20 MG Tab PO SCH (07:18)
[2018-10-19] MEDS: Miconazole 2% Top Powder 45 GM Container TOP SCH ×2 (07:19→11:24)
[2018-10-19] MEDS: GABAPENTIN 100 MG PO SCH ×2 (07:20→13:04)
[2018-10-19] MEDS ORDERED: Miconazole 2% Top Powder 45 GM Container TOP PRN (11:26)
[2018-10-19] MEDS: Melatonin 3 MG Tab PO SCH (19:09)
[2018-10-19] MEDS: ROPINIROLE 0.5 MG PO SCH (19:11)
[2018-10-19] MEDS: WARFARIN 5 MG PO SCH (19:12)
[2018-10-20] MEDS: Acetaminophen 325 MG Tab PO SCH ×4 (02:15→19:18)
[2018-10-20] MEDS: SERTRALINE 100 MG PO SCH (07:28)
[2018-10-20] MEDS: METOPROLOL 25 MG PO SCH (07:28)
[2018-10-20] MEDS: [UNRECOGNIZED DRUG - OTHER] PO SCH (07:28)
[2018-10-20] MEDS: GABAPENTIN 100 MG PO SCH ×2 (07:28→12:17)
[2018-10-20] MEDS: Famotidine 20 MG Tab PO SCH (07:29)
[2018-10-20] MEDS: Docusate Sodium 100 MG Cap PO SCH (07:29)
[2018-10-20] MEDS: ROPINIROLE 0.5 MG PO SCH (19:17)
[2018-10-20] MEDS: WARFARIN 5 MG PO SCH (19:17)
[2018-10-20] MEDS: Melatonin 3 MG Tab PO SCH (19:18)
[2018-10-21] MEDS: Acetaminophen 325 MG Tab PO SCH ×4 (02:15→20:22)
[2018-10-21] MEDS: Docusate Sodium 100 MG Cap PO SCH (07:59)
[2018-10-21] MEDS: Famotidine 20 MG Tab PO SCH (07:59)
[2018-10-21] MEDS: [UNRECOGNIZED DRUG - OTHER] PO SCH (08:00)
[2018-10-21] MEDS: SERTRALINE 100 MG PO SCH (08:00)
[2018-10-21] MEDS: METOPROLOL 25 MG PO SCH (08:00)
[2018-10-21] MEDS: GABAPENTIN 100 MG PO SCH ×2 (08:01→13:14)
[2018-10-21] MEDS: WARFARIN PO SCH (20:20)
[2018-10-21] MEDS: ROPINIROLE 0.5 MG PO SCH (20:21)
[2018-10-21] MEDS: Melatonin 3 MG Tab PO SCH (20:22)
[2018-10-22] MEDS: Acetaminophen 325 MG Tab PO SCH ×4 (01:25→19:45)
[2018-10-22] MEDS: Docusate Sodium 100 MG Cap PO SCH (07:56)
[2018-10-22] MEDS: METOPROLOL 25 MG PO SCH (07:56)
[2018-10-22] MEDS: Famotidine 20 MG Tab PO SCH (07:56)
[2018-10-22] MEDS: [UNRECOGNIZED DRUG - OTHER] PO SCH (07:57)
[2018-10-22] MEDS: SERTRALINE 100 MG PO SCH (07:57)
[2018-10-22] MEDS: GABAPENTIN 100 MG PO SCH ×2 (07:58→14:04)
[2018-10-22] MEDS: ROPINIROLE 0.5 MG PO SCH (19:44)
[2018-10-22] MEDS: WARFARIN 5 MG PO SCH (19:44)
[2018-10-22] MEDS: Melatonin 3 MG Tab PO SCH (19:45)
[2018-10-23] MEDS: Acetaminophen 325 MG Tab PO SCH ×4 (06:04→19:11)
[2018-10-23] MEDS: [UNRECOGNIZED DRUG - OTHER] PO SCH (08:06)
[2018-10-23] MEDS: METOPROLOL 25 MG PO SCH (08:06)
[2018-10-23] MEDS: SERTRALINE 100 MG PO SCH (08:06)
[2018-10-23] MEDS: Docusate Sodium 100 MG Cap PO SCH (08:07)
[2018-10-23] MEDS: GABAPENTIN 100 MG PO SCH ×2 (08:07→12:32)
[2018-10-23] MEDS: Famotidine 20 MG Tab PO SCH (08:08)
[2018-10-23] MEDS: WARFARIN 5 MG PO SCH (19:10)
[2018-10-23] MEDS: ROPINIROLE 0.5 MG PO SCH (19:10)
[2018-10-23] MEDS: Melatonin 3 MG Tab PO SCH (19:11)
[2018-10-24] MEDS: Acetaminophen 325 MG Tab PO SCH ×4 (02:07→19:16)
[2018-10-24] MEDS: METOPROLOL 25 MG PO SCH (07:58)
[2018-10-24] MEDS: Docusate Sodium 100 MG Cap PO SCH (07:58)
[2018-10-24] MEDS: SERTRALINE 100 MG PO SCH (07:58)
[2018-10-24] MEDS: [UNRECOGNIZED DRUG - OTHER] PO SCH (07:58)
[2018-10-24] MEDS: Famotidine 20 MG Tab PO SCH (07:58)
[2018-10-24] MEDS: GABAPENTIN 100 MG PO SCH ×2 (07:59→13:32)
[2018-10-24] MEDS: ROPINIROLE 0.5 MG PO SCH (19:15)
[2018-10-24] MEDS: WARFARIN PO SCH (19:15)
[2018-10-24] MEDS: Melatonin 3 MG Tab PO SCH (19:17)
[2018-10-25] MEDS: Acetaminophen 325 MG Tab PO SCH ×4 (02:37→19:21)
[2018-10-25] MEDS: SERTRALINE 100 MG PO SCH (08:34)
[2018-10-25] MEDS: METOPROLOL 25 MG PO SCH (08:34)
[2018-10-25] MEDS: [UNRECOGNIZED DRUG - OTHER] PO SCH (08:34)
[2018-10-25] MEDS: Docusate Sodium 100 MG Cap PO SCH (08:34)
[2018-10-25] MEDS: Famotidine 20 MG Tab PO SCH (08:34)
[2018-10-25] MEDS: GABAPENTIN 100 MG PO SCH ×2 (08:41→12:47)
[2018-10-25] MEDS: Melatonin 3 MG Tab PO SCH (19:20)
[2018-10-25] MEDS: ROPINIROLE 0.5 MG PO SCH (19:21)
[2018-10-25] MEDS: WARFARIN 5 MG PO SCH (19:22)
[2018-10-26] MEDS: Acetaminophen 325 MG Tab PO SCH ×4 (02:26→19:19)
[2018-10-26] MEDS: Famotidine 20 MG Tab PO SCH (08:36)
[2018-10-26] MEDS: Docusate Sodium 100 MG Cap PO SCH (08:36)
[2018-10-26] MEDS: SERTRALINE 100 MG PO SCH (08:37)
[2018-10-26] MEDS: [UNRECOGNIZED DRUG - OTHER] PO SCH (08:38)
[2018-10-26] MEDS: GABAPENTIN 100 MG PO SCH ×2 (08:38→12:59)
[2018-10-26] MEDS: METOPROLOL 25 MG PO SCH (08:41)
[2018-10-26] MEDS: Melatonin 3 MG Tab PO SCH (19:18)
[2018-10-26] MEDS: ROPINIROLE 0.5 MG PO SCH (19:19)
[2018-10-26] MEDS: WARFARIN 5 MG PO SCH (19:20)
[2018-10-27] MEDS: Acetaminophen 325 MG Tab PO SCH ×4 (01:29→19:12)
[2018-10-27] MEDS: METOPROLOL 25 MG PO SCH (08:20)
[2018-10-27] MEDS: GABAPENTIN 100 MG PO SCH ×2 (08:20→12:13)
[2018-10-27] MEDS: SERTRALINE 100 MG PO SCH (08:20)
[2018-10-27] MEDS: [UNRECOGNIZED DRUG - OTHER] PO SCH (08:20)
[2018-10-27] MEDS: Docusate Sodium 100 MG Cap PO SCH (08:21)
[2018-10-27] MEDS: Famotidine 20 MG Tab PO SCH (08:21)
[2018-10-27] MEDS: WARFARIN 5 MG PO SCH (19:11)
[2018-10-27] MEDS: ROPINIROLE 0.5 MG PO SCH (19:11)
[2018-10-27] MEDS: Melatonin 3 MG Tab PO SCH (19:11)
[2018-10-28] MEDS: Acetaminophen 325 MG Tab PO SCH ×4 (01:41→19:14)
[2018-10-28] MEDS: SERTRALINE 100 MG PO SCH (09:01)
[2018-10-28] MEDS: Famotidine 20 MG Tab PO SCH (09:01)
[2018-10-28] MEDS: METOPROLOL 25 MG PO SCH (09:01)
[2018-10-28] MEDS: [UNRECOGNIZED DRUG - OTHER] PO SCH (09:02)
[2018-10-28] MEDS: GABAPENTIN 100 MG PO SCH ×2 (09:02→12:35)
[2018-10-28] MEDS: Docusate Sodium 100 MG Cap PO SCH (09:03)
[2018-10-28] MEDS: Melatonin 3 MG Tab PO SCH (19:14)
[2018-10-28] MEDS: ROPINIROLE 0.5 MG PO SCH (19:14)
[2018-10-28] MEDS: WARFARIN PO SCH (19:14)
[2018-10-29] MEDS: Acetaminophen 325 MG Tab PO SCH ×4 (02:11→19:12)
[2018-10-29] MEDS: Docusate Sodium 100 MG Cap PO SCH (08:13)
[2018-10-29] MEDS: [UNRECOGNIZED DRUG - OTHER] PO SCH (08:13)
[2018-10-29] MEDS: METOPROLOL 25 MG PO SCH (08:13)
[2018-10-29] MEDS: SERTRALINE 100 MG PO SCH (08:13)
[2018-10-29] MEDS: GABAPENTIN 100 MG PO SCH ×2 (08:14→13:06)
[2018-10-29] MEDS: Famotidine 20 MG Tab PO SCH (08:15)
[2018-10-29] MEDS: Melatonin 3 MG Tab PO SCH (19:11)
[2018-10-29] MEDS: ROPINIROLE 0.5 MG PO SCH (19:12)
[2018-10-29] MEDS: WARFARIN 5 MG PO SCH (19:13)
[2018-10-30] MEDS: Acetaminophen 325 MG Tab PO SCH ×4 (02:22→19:45)
[2018-10-30] MEDS: SERTRALINE 100 MG PO SCH (08:32)
[2018-10-30] MEDS: Docusate Sodium 100 MG Cap PO SCH (08:32)
[2018-10-30] MEDS: Famotidine 20 MG Tab PO SCH (08:32)
[2018-10-30] MEDS: [UNRECOGNIZED DRUG - OTHER] PO SCH (08:32)
[2018-10-30] MEDS: METOPROLOL 25 MG PO SCH (08:32)
[2018-10-30] MEDS: GABAPENTIN 100 MG PO SCH ×2 (08:32→13:18)
[2018-10-30] MEDS ORDERED: Docusate Sodium 100 MG Cap PO PRN (18:09)
[2018-10-30] MEDS: Melatonin 3 MG Tab PO SCH (19:45)
[2018-10-30] MEDS: WARFARIN 5 MG PO SCH (19:47)
[2018-10-30] MEDS: ROPINIROLE 0.5 MG PO SCH (19:47)
[2018-10-31] MEDS: Acetaminophen 325 MG Tab PO SCH ×4 (02:17→19:55)
[2018-10-31] MEDS: Polyethylene Glycol 3350 Powder 17 GM Packet PO SCH (08:05)
[2018-10-31] MEDS: METOPROLOL 25 MG PO SCH (08:05)
[2018-10-31] MEDS: GABAPENTIN 100 MG PO SCH ×2 (08:05→13:41)
[2018-10-31] MEDS: [UNRECOGNIZED DRUG - OTHER] PO SCH (08:05)
[2018-10-31] MEDS: SERTRALINE 100 MG PO SCH (08:06)
[2018-10-31] MEDS: Famotidine 20 MG Tab PO SCH (08:06)
[2018-10-31] MEDS: WARFARIN PO SCH (19:54)
[2018-10-31] MEDS: ROPINIROLE 0.5 MG PO SCH (19:54)
[2018-10-31] MEDS: Melatonin 3 MG Tab PO SCH (19:55)
[2018-11-01] MEDS: Acetaminophen 325 MG Tab PO SCH ×4 (02:15→19:48)
[2018-11-01] MEDS: METOPROLOL 25 MG PO SCH (08:51)
[2018-11-01] MEDS: SERTRALINE 100 MG PO SCH (08:52)
[2018-11-01] MEDS: [UNRECOGNIZED DRUG - OTHER] PO SCH (08:52)
[2018-11-01] MEDS: Famotidine 20 MG Tab PO SCH (08:52)
[2018-11-01] MEDS: Polyethylene Glycol 3350 Powder 17 GM Packet PO SCH (08:53)
[2018-11-01] MEDS: GABAPENTIN 100 MG PO SCH ×2 (08:53→13:50)
[2018-11-01] MEDS: ROPINIROLE 0.5 MG PO SCH (19:47)
[2018-11-01] MEDS: WARFARIN 5 MG PO SCH (19:47)
[2018-11-01] MEDS: Melatonin 3 MG Tab PO SCH (19:48)
[2018-11-02] MEDS: Acetaminophen 325 MG Tab PO SCH ×4 (02:01→20:10)
[2018-11-02] MEDS: SERTRALINE 100 MG PO SCH (07:53)
[2018-11-02] MEDS: GABAPENTIN 100 MG PO SCH ×2 (07:53→12:21)
[2018-11-02] MEDS: Famotidine 20 MG Tab PO SCH (07:53)
[2018-11-02] MEDS: [UNRECOGNIZED DRUG - OTHER] PO SCH (07:53)
[2018-11-02] MEDS: Polyethylene Glycol 3350 Powder 17 GM Packet PO SCH (07:54)
[2018-11-02] MEDS: METOPROLOL 25 MG PO SCH (07:54)
[2018-11-02] MEDS: ROPINIROLE 0.5 MG PO SCH (20:09)
[2018-11-02] MEDS: WARFARIN 5 MG PO SCH (20:09)
[2018-11-02] MEDS: Melatonin 3 MG Tab PO SCH (20:11)
[2018-11-03] MEDS: Acetaminophen 325 MG Tab PO SCH ×4 (02:15→19:28)
[2018-11-03] MEDS: Famotidine 20 MG Tab PO SCH (07:46)
[2018-11-03] MEDS: [UNRECOGNIZED DRUG - OTHER] PO SCH (07:47)
[2018-11-03] MEDS: METOPROLOL 25 MG PO SCH (07:47)
[2018-11-03] MEDS: GABAPENTIN 100 MG PO SCH ×2 (07:48→14:12)
[2018-11-03] MEDS: Polyethylene Glycol 3350 Powder 17 GM Packet PO SCH (07:48)
[2018-11-03] MEDS: SERTRALINE 100 MG PO SCH (07:48)
[2018-11-03] MEDS: Melatonin 3 MG Tab PO SCH (19:27)
[2018-11-03] MEDS: WARFARIN 5 MG PO SCH (19:27)
[2018-11-03] MEDS: ROPINIROLE 0.5 MG PO SCH (19:28)
[2018-11-04] MEDS: Acetaminophen 325 MG Tab PO SCH ×4 (02:26→20:45)
[2018-11-04] MEDS: [UNRECOGNIZED DRUG - OTHER] PO SCH (08:55)
[2018-11-04] MEDS: METOPROLOL 25 MG PO SCH (08:56)
[2018-11-04] MEDS: GABAPENTIN 100 MG PO SCH ×2 (08:59→12:54)
[2018-11-04] MEDS: Polyethylene Glycol 3350 Powder 17 GM Packet PO SCH (09:09)
[2018-11-04] MEDS: Famotidine 20 MG Tab PO SCH (09:10)
[2018-11-04] MEDS: SERTRALINE 100 MG PO SCH (09:11)
[2018-11-04] MEDS: Melatonin 3 MG Tab PO SCH (20:45)
[2018-11-04] MEDS: ROPINIROLE 0.5 MG PO SCH (20:46)
[2018-11-04] MEDS: WARFARIN PO SCH (20:47)
[2018-11-05] MEDS: Acetaminophen 325 MG Tab PO SCH ×4 (06:22→19:54)
[2018-11-05] MEDS: Famotidine 20 MG Tab PO SCH (09:32)
[2018-11-05] MEDS: [UNRECOGNIZED DRUG - OTHER] PO SCH (09:32)
[2018-11-05] MEDS: SERTRALINE 100 MG PO SCH (09:33)
[2018-11-05] MEDS: Polyethylene Glycol 3350 Powder 17 GM Packet PO SCH ×2 (09:33→09:39)
[2018-11-05] MEDS: METOPROLOL 25 MG PO SCH (09:33)
[2018-11-05] MEDS: GABAPENTIN 100 MG PO SCH ×2 (09:33→13:05)
[2018-11-05] MEDS: WARFARIN 5 MG PO SCH (19:53)
[2018-11-05] MEDS: ROPINIROLE 0.5 MG PO SCH (19:54)
[2018-11-05] MEDS: Melatonin 3 MG Tab PO SCH (19:55)
[2018-11-06] MEDS: Acetaminophen 325 MG Tab PO SCH ×4 (02:34→19:52)
[2018-11-06] MEDS: [UNRECOGNIZED DRUG - OTHER] PO SCH (08:28)
[2018-11-06] MEDS: SERTRALINE 100 MG PO SCH (08:28)
[2018-11-06] MEDS: METOPROLOL 25 MG PO SCH (08:28)
[2018-11-06] MEDS: GABAPENTIN 100 MG PO SCH ×2 (08:28→13:28)
[2018-11-06] MEDS: Famotidine 20 MG Tab PO SCH (08:28)
[2018-11-06] MEDS: Polyethylene Glycol 3350 Powder 17 GM Packet PO SCH (08:28)
[2018-11-06] MEDS: Melatonin 3 MG Tab PO SCH (19:52)
[2018-11-06] MEDS: ROPINIROLE 0.5 MG PO SCH (19:53)
[2018-11-06] MEDS: WARFARIN 5 MG PO SCH (19:53)
[2018-11-07] MEDS: Acetaminophen 325 MG Tab PO SCH ×4 (06:47→19:10)
[2018-11-07] MEDS: Famotidine 20 MG Tab PO SCH (07:46)
[2018-11-07] MEDS: GABAPENTIN 100 MG PO SCH ×2 (07:47→14:36)
[2018-11-07] MEDS: METOPROLOL 25 MG PO SCH (07:48)
[2018-11-07] MEDS: [UNRECOGNIZED DRUG - OTHER] PO SCH (07:48)
[2018-11-07] MEDS: SERTRALINE 100 MG PO SCH (07:48)
[2018-11-07] MEDS: Polyethylene Glycol 3350 Powder 17 GM Packet PO SCH (07:50)
[2018-11-07] MEDS: Melatonin 3 MG Tab PO SCH (19:10)
[2018-11-07] MEDS: ROPINIROLE 0.5 MG PO SCH (19:10)
[2018-11-07] MEDS: WARFARIN PO SCH (19:11)
[2018-11-08] MEDS: Acetaminophen 325 MG Tab PO SCH ×4 (02:33→19:10)
[2018-11-08] MEDS: SERTRALINE 100 MG PO SCH (07:50)
[2018-11-08] MEDS: METOPROLOL 25 MG PO SCH (07:50)
[2018-11-08] MEDS: [UNRECOGNIZED DRUG - OTHER] PO SCH (07:50)
[2018-11-08] MEDS: Famotidine 20 MG Tab PO SCH (07:51)
[2018-11-08] MEDS: GABAPENTIN 100 MG PO SCH ×2 (07:53→14:12)
[2018-11-08] MEDS: Polyethylene Glycol 3350 Powder 17 GM Packet PO SCH (07:53)
[2018-11-08 09:22] VITALS: BP 101/42
[2018-11-08] MEDS: ROPINIROLE 0.5 MG PO SCH (19:09)
[2018-11-08] MEDS: Melatonin 3 MG Tab PO SCH (19:09)
[2018-11-08] MEDS: WARFARIN 5 MG PO SCH (19:09)
[2018-11-09] MEDS: Acetaminophen 325 MG Tab PO SCH ×4 (02:14→19:20)
[2018-11-09] MEDS: SERTRALINE 100 MG PO SCH (08:21)
[2018-11-09] MEDS: [UNRECOGNIZED DRUG - OTHER] PO SCH (08:21)
[2018-11-09] MEDS: METOPROLOL 25 MG PO SCH (08:21)
[2018-11-09] MEDS: GABAPENTIN 100 MG PO SCH ×2 (08:22→13:59)
[2018-11-09] MEDS: Famotidine 20 MG Tab PO SCH (08:22)
[2018-11-09] MEDS: Polyethylene Glycol 3350 Powder 17 GM Packet PO SCH (08:24)
[2018-11-09] MEDS: Melatonin 3 MG Tab PO SCH (19:19)
[2018-11-09] MEDS: ROPINIROLE 0.5 MG PO SCH (19:20)
[2018-11-09] MEDS: WARFARIN 5 MG PO SCH (19:21)
[2018-11-10] MEDS: Acetaminophen 325 MG Tab PO SCH ×4 (01:52→19:16)
[2018-11-10] MEDS: Famotidine 20 MG Tab PO SCH (07:27)
[2018-11-10] MEDS: [UNRECOGNIZED DRUG - OTHER] PO SCH (07:27)
[2018-11-10] MEDS: METOPROLOL 25 MG PO SCH (07:27)
[2018-11-10] MEDS: SERTRALINE 100 MG PO SCH (07:27)
[2018-11-10] MEDS: GABAPENTIN 100 MG PO SCH ×2 (07:27→14:14)
[2018-11-10] MEDS: Polyethylene Glycol 3350 Powder 17 GM Packet PO SCH (09:54)
[2018-11-10] MEDS: Melatonin 3 MG Tab PO SCH (19:15)
[2018-11-10] MEDS: ROPINIROLE 0.5 MG PO SCH (19:15)
[2018-11-10] MEDS: WARFARIN 5 MG PO SCH (19:16)
[2018-11-11] MEDS: Acetaminophen 325 MG Tab PO SCH ×4 (01:36→19:12)
[2018-11-11] MEDS: Famotidine 20 MG Tab PO SCH (08:06)
[2018-11-11] MEDS: Polyethylene Glycol 3350 Powder 17 GM Packet PO SCH (08:06)
[2018-11-11] MEDS: METOPROLOL 25 MG PO SCH (08:07)
[2018-11-11] MEDS: SERTRALINE 100 MG PO SCH (08:07)
[2018-11-11] MEDS: GABAPENTIN 100 MG PO SCH ×2 (08:08→13:12)
[2018-11-11] MEDS: [UNRECOGNIZED DRUG - OTHER] PO SCH (08:08)
[2018-11-11] MEDS: Melatonin 3 MG Tab PO SCH (19:11)
[2018-11-11] MEDS: ROPINIROLE 0.5 MG PO SCH (19:12)
[2018-11-11] MEDS: WARFARIN PO SCH (19:13)
[2018-11-12] MEDS: Acetaminophen 325 MG Tab PO SCH ×3 (02:02→13:44)
[2018-11-12] MEDS: Polyethylene Glycol 3350 Powder 17 GM Packet PO SCH (08:04)
[2018-11-12] MEDS: METOPROLOL 25 MG PO SCH (08:04)
[2018-11-12] MEDS: [UNRECOGNIZED DRUG - OTHER] PO SCH (08:04)
[2018-11-12] MEDS: SERTRALINE 100 MG PO SCH (08:04)
[2018-11-12] MEDS: GABAPENTIN 100 MG PO SCH ×2 (08:04→13:44)
[2018-11-12] MEDS: Famotidine 20 MG Tab PO SCH (08:05)
--- NOTE | 2018-11-12 13:44 | PCM.PN ---
- General Info Date of Service: 07/11/18 Subjective Update: Patient is a long-term admitted to swing bed. Hasn't any self you economic support her family. She opted for placement here set retirement. She has no focal complaints at this time. Vital signs remained normal. Heart and lungs clear to auscultation. Abdomen soft nontender. Extremities warm well perfused without edema. Patient admitted to the intermediate retirement stay. She's doing relatively well. INR supratherapeutic, pharmacy to follow. - Patient Data Vitals - Most Recent: Last Vital Signs Temp 37.0 C 11/08/18 08:00 Pulse 88 11/08/18 08:00 Resp 20 10/25/18 08:00 BP 101/42 L 11/08/18 08:00 Pulse Ox 93 L 11/08/18 08:00 Weight - Most Recent: 81.873 kg I&O - Last 24 Hours: Intake & Output 11/11/18 11/12/18 11/12/18 22:59 06:59 14:59 Intake Total 240 Balance 240 Med Orders - Current: Current Medications Acetaminophen (Tylenol) 650 mg PO 0200,0800,1300,1999 [facility] Last Admin: 11/12/18 08:05 Dose: 650 mg Calcium Carbonate/Glycine (Tums Extra Strength) 750 mg PO TID PRN PRN Reason: Dyspepsia Last Admin: 10/16/18 12:31 Dose: 750 mg Docusate Sodium (Colace) 100 mg PO DAILY PRN PRN Reason: Constipation Famotidine (Pepcid) 20 mg PO DAILY [facility] Last Admin: 11/12/18 08:05 Dose: 20 mg Furosemide (Lasix) 20 mg PO DAILY [facility] Last Admin: 11/12/18 08:04 Dose: 20 mg Gabapentin (Neurontin) 100 mg PO BID@0800,1300 [facility] Last Admin: 11/12/18 08:04 Dose: 100 mg Melatonin (Melatonin) 6 mg PO BEDTIME [facility] Last Admin: 11/11/18 19:11 Dose: 6 mg Nitroglycerin (Nitrostat) 0.4 mg SL Q5M PRN PRN Reason: Chest Pain Last Admin: 08/24/18 18:00 Dose: 0.4 mg Warfarin. 2.5mg (1/2 Of 5mg Tab): Own Supply 0 mg PO MoTh@1999 [facility] Last Admin: 11/11/18 19:13 Dose: 2.5 mg Warfarin. 5mg (Own (Supply)) 0 mg PO [place]@1999 [facility] Last Admin: 11/10/18 19:16 Dose: 5 mg Gabapentin. 300mg ( (Own Supply)) 0 mg PO BEDTIME [facility] Last Admin: 11/11/18 19:11 Dose: 300 mg Metoprolol.Er 25mg ( (Own Supply)) 0 mg PO DAILY [facility] Last Admin: 11/12/18 08:04 Dose: 25 mg Pharmacy Consult (Consult To Pharmacy) 1 each .XX ASDIRECTED PRN PRN Reason: consult warfarin/INR Polyethylene Glycol (Miralax) 17 gm PO DAILY [facility] Last Admin: 11/12/18 08:04 Dose: Not Given Ropinirole HCl (Requip) 0.5 mg PO BEDTIME [facility] Last Admin: 11/11/18 19:12 Dose: 0.5 mg Senna/Docusate Sodium (Senna Plus) 1 tab PO DAILY PRN PRN Reason: Constipation Sertraline HCl (Zoloft) 100 mg PO DAILY [facility] Last Admin: 11/12/18 08:04 Dose: 100 mg Discontinued Medications Acetaminophen (Tylenol) 650 mg PO Q6H [facility] Last Admin: 06/21/18 12:43 Dose: Not Given Acetaminophen (Tylenol) 650 mg PO 0200,0800,1399,1999 [facility] Last Admin: 07/10/18 07:12 Dose: 650 mg Barium Sulfate (E-Z-Hd) 50.3999 gm .ROUTE .STK-MED ONE Stop: 07/15/18 10:01 Barium Sulfate (E-Z-Paste) 10.55203 gm PO .STK-MED ONE Stop: 07/15/18 10:01 Cephalexin (Keflex) 500 mg PO BID [facility] Stop: 07/23/18 20:01 Last Admin: 07/23/18 19:57 Dose: 500 mg Cephalexin (Keflex) 250 mg PO BID [facility] Stop: 09/03/18 08:01 Last Admin: 09/03/18 08:20 Dose: 250 mg Docusate Sodium (Colace) 100 mg PO DAILY [facility] Last Admin: 10/30/18 08:32 Dose: 100 mg Gabapentin (Neurontin) 300 mg PO BEDTIME [facility] Last Admin: 06/13/18 20:48 Dose: 300 mg Gabapentin (Neurontin) 100 mg PO 08,12 [facility] Last Admin: 06/14/18 08:17 Dose: 100 mg Gabapentin (Neurontin) 100 mg PO BID@0800,1200 [facility] Last Admin: 07/10/18 07:12 Dose: 100 mg Gabapentin (Neurontin) 300 mg PO BEDTIME [facility] Last Admin: 08/08/18 20:34 Dose: 300 mg Metoprolol Succinate (Toprol Xl) 25 mg PO DAILY [facility] Last Admin: 08/09/18 08:58 Dose: 25 mg Miconazole (Desenex 2%) 0 gm TOP BID [facility] Last Admin: 07/01/18 09:00 Dose: Not Given Miconazole (Desenex 2%) 0 gm TOP BID PRN PRN Reason: Itching Last Admin: 06/29/18 07:55 Dose: 1 dose Miconazole (Desenex 2%) 0 gm TOP TID [facility] Last Admin: 10/16/18 15:40 Dose: 1 applic Miconazole (Desenex 2%) 0 gm TOP TID [facility] Stop: 10/21/18 20:01 Last Admin: 10/19/18 11:24 Dose: Not Given Miconazole (Desenex 2%) 0 gm TOP TID PRN PRN Reason: Rash Stop: 10/21/18 20:01 Last Admin: 10/20/18 19:16 Dose: 1 applic Nitrofurantoin Macrocrystals (Macrobid) 100 mg PO BID [facility] Stop: 09/03/18 17:01 Last Admin: 08/29/18 18:16 Dose: Not Given Warfarin. 2.5mg (1/2 Of 5mg Tab): Own Supply 0 mg PO MOWEFR@1999 [facility] Last Admin: 06/24/18 20:21 Dose: 2.5 mg Warfarin. 5mg (Own (Supply)) 0 mg PO SUTUTHSA@1999 [facility] Last Admin: 07/02/18 19:41 Dose: 5 mg Warfarin. 2.5mg (1/2 Of 5mg Tab): Own Supply 0 mg PO MOWEFR@1999 [facility] Last Admin: 06/28/18 20:20 Dose: 2.5 mg Warfarin. 2.5mg (1/2 Of 5mg Tab): Own Supply 0 mg PO ONETIME ONE Stop: 06/29/18 20:01 Last Admin: 06/29/18 19:34 Dose: 2.5 mg Warfarin. 5mg (Own (Supply)) 0 mg PO ONETIME ONE Stop: 06/30/18 20:01 Last Admin: 06/30/18 20:23 Dose: 5 mg Warfarin. 5mg (Own (Supply)) 0 mg PO ONETIME ONE Stop: 07/01/18 20:01 Last Admin: 07/01/18 20:30 Dose: 10 mg Warfarin. 5mg (Own (Supply)) 0 mg PO ONETIME ONE Stop: 07/02/18 20:01 Last Admin: 07/02/18 20:30 Dose: 5 mg Warfarin. 5mg (Own (Supply)) 2.5 mg PO ONETIME ONE Stop: 07/05/18 20:01 Last Admin: 07/05/18 19:55 Dose: 2.5 mg Warfarin. 5mg (Own (Supply)) 5 mg PO ONETIME ONE Stop: 07/06/18 20:01 Last Admin: 07/06/18 19:49 Dose: 5 mg Warfarin. 5mg (Own (Supply)) 5 mg PO ONETIME ONE Stop: 07/07/18 20:01 Last Admin: 07/07/18 19:21 Dose: 5 mg Warfarin. 5mg (Own (Supply)) 2.5 mg PO ONETIME ONE Stop: 07/08/18 20:01 Last Admin: 07/08/18 20:04 Dose: 2.5 mg Warfarin. 2.5mg (1/2 Of 5mg Tab): Own Supply 0 mg PO MOWEFR@1999 [facility] Last Admin: 07/12/18 20:03 Dose: 2.5 mg Warfarin. 5mg (Own (Supply)) 0 mg PO SUTUTHSA@[address] [place] [address] Last Admin: 07/13/18 20:20 Dose: 5 mg Warfarin. 2.5mg (1/2 Of 5mg Tab): Own Supply 2.5 mg PO ONETIME ONE Stop: 07/13/18 20:01 Last Admin: 07/13/18 20:20 Dose: 2.5 mg Warfarin. 5mg (Own (Supply)) 0 mg PO ONETIME ONE Stop: 07/14/18 20:01 Last Admin: 07/14/18 19:43 Dose: 10 mg Warfarin. 5mg (Own (Supply)) 0 mg PO ONETIME ONE Stop: 07/15/18 20:01 Last Admin: 07/15/18 20:16 Dose: 5 mg Warfarin 5mg (Own (Supply)) 0 mg PO ONETIME ONE Stop: 07/18/18 20:01 Last Admin: 07/18/18 20:41 Dose: 5 mg Warfarin 5mg (Own (Supply)) 0 mg PO ONETIME ONE Stop: 07/19/18 20:01 Last Admin: 07/19/18 20:02 Dose: 5 mg Warfarin 5mg (Own (Supply)) 0 mg PO ONETIME ONE Stop: 07/20/18 20:01 Last Admin: 07/20/18 21:03 Dose: 5 mg Warfarin 5mg (Own (Supply)) 0 mg PO ONETIME ONE Stop: 07/21/18 20:01 Last Admin: 07/21/18 20:23 Dose: 2.5 mg Warfarin. 2.5mg (1/2 Of 5mg Tab): Own Supply 0 mg PO MOWEFR@1999 [facility] Last Admin: 07/31/18 19:24 Dose: 2.5 mg Warfarin. 5mg (Own (Supply)) 0 mg PO SUTUTHSA@1999 [facility] Last Admin: 08/01/18 19:59 Dose: 5 mg Polyethylene Glycol (Miralax) 17 gm PO DAILY PRN PRN Reason: Constipation Ropinirole HCl (Requip) 0.5 mg PO BEDTIME [facility] Last Admin: 06/13/18 20:36 Dose: Not Given Ropinirole HCl (Requip) 0.5 mg PO BEDTIME [facility] Last Admin: 06/13/18 20:49 Dose: Not Given Ropinirole HCl (Requip) 0.5 mg PO BEDTIME [facility] Senna/Docusate Sodium (Senna Plus) 1 tab PO DAILY [facility] Last Admin: 10/30/18 08:32 Dose: 1 tab Warfarin Sodium (Coumadin) 5 mg PO ASDIRECTED [facility] Warfarin Sodium (Coumadin) 2.5 mg PO ONETIME ONE Stop: 06/16/18 20:01 Last Admin: 06/16/18 20:45 Dose: 2.5 mg Warfarin Sodium (Coumadin) 1 mg PO DAILY@1999 [facility] Stop: 07/16/18 20:01 Last Admin: 07/16/18 19:47 Dose: 1 mg Warfarin Sodium (Coumadin) 2.5 mg PO DAILY@1999 [facility] Stop: 07/17/18 20:01 Last Admin: 07/17/18 19:39 Dose: 2.5 mg - Problem List Review Problem List Initiated/Reviewed/Updated: Yes - My Orders Last 24 Hours: My Active Orders 11/29/18 07:00 INR,PT,PROTHROMBIN TIME [COAG] Q28D 12/27/18 07:00 INR,PT,PROTHROMBIN TIME [COAG] Q28D 01/24/19 07:00 INR,PT,PROTHROMBIN TIME [COAG] Q28D 02/21/19 07:00 INR,PT,PROTHROMBIN TIME [COAG] Q28D
--- NOTE | 2018-11-12 13:46 | PCM.PN ---
- General Info Date of Service: 08/08/18 Admission Dx/Problem (Free Text): Admitted to swing bed long-term. Failure to thrive. Little to no social economic support. Nursing was concerned about swallowing. She did a video eval , which showed penetration without marcia aspiration. They have recommended moderate dietary adjustments. Vital signs remain stable. Alert oriented no acute distress. Abdomen soft nontender. Assessment and plan: Slight dietary modification, watch for any aspiration episodes. Coumadin level currently therapeutic. Otherwise seems adjusted to long-term living in swing bed environment. - Patient Data Vitals - Most Recent: Last Vital Signs Temp 37.0 C 11/08/18 08:00 Pulse 88 11/08/18 08:00 Resp 20 10/25/18 08:00 BP 101/42 L 11/08/18 08:00 Pulse Ox 93 L 11/08/18 08:00 Weight - Most Recent: 81.873 kg I&O - Last 24 Hours: Intake & Output 11/11/18 11/12/18 11/12/18 22:59 06:59 14:59 Intake Total 240 Balance 240 Med Orders - Current: Current Medications Acetaminophen (Tylenol) 650 mg PO 0200,0800,1300,1999 [facility] Last Admin: 11/12/18 08:05 Dose: 650 mg Calcium Carbonate/Glycine (Tums Extra Strength) 750 mg PO TID PRN PRN Reason: Dyspepsia Last Admin: 10/16/18 12:31 Dose: 750 mg Docusate Sodium (Colace) 100 mg PO DAILY PRN PRN Reason: Constipation Famotidine (Pepcid) 20 mg PO DAILY [facility] Last Admin: 11/12/18 08:05 Dose: 20 mg Furosemide (Lasix) 20 mg PO DAILY [facility] Last Admin: 11/12/18 08:04 Dose: 20 mg Gabapentin (Neurontin) 100 mg PO BID@0800,1300 [facility] Last Admin: 11/12/18 08:04 Dose: 100 mg Melatonin (Melatonin) 6 mg PO BEDTIME [facility] Last Admin: 11/11/18 19:11 Dose: 6 mg Nitroglycerin (Nitrostat) 0.4 mg SL Q5M PRN PRN Reason: Chest Pain Last Admin: 08/24/18 18:00 Dose: 0.4 mg Warfarin. 2.5mg (1/2 Of 5mg Tab): Own Supply 0 mg PO MoTh@1999 [facility] Last Admin: 11/11/18 19:13 Dose: 2.5 mg Warfarin. 5mg (Own (Supply)) 0 mg PO SuTuWeFrSa@1999 [facility] Last Admin: 11/10/18 19:16 Dose: 5 mg Gabapentin. 300mg ( (Own Supply)) 0 mg PO BEDTIME [facility] Last Admin: 11/11/18 19:11 Dose: 300 mg Metoprolol.Er 25mg ( (Own Supply)) 0 mg PO DAILY [facility] Last Admin: 11/12/18 08:04 Dose: 25 mg Pharmacy Consult (Consult To Pharmacy) 1 each .XX ASDIRECTED PRN PRN Reason: consult warfarin/INR Polyethylene Glycol (Miralax) 17 gm PO DAILY [facility] Last Admin: 11/12/18 08:04 Dose: Not Given Ropinirole HCl (Requip) 0.5 mg PO BEDTIME [facility] Last Admin: 11/11/18 19:12 Dose: 0.5 mg Senna/Docusate Sodium (Senna Plus) 1 tab PO DAILY PRN PRN Reason: Constipation Sertraline HCl (Zoloft) 100 mg PO DAILY [facility] Last Admin: 11/12/18 08:04 Dose: 100 mg Discontinued Medications Acetaminophen (Tylenol) 650 mg PO Q6H [facility] Last Admin: 06/21/18 12:43 Dose: Not Given Acetaminophen (Tylenol) 650 mg PO 0200,0800,1399,1999 [facility] Last Admin: 07/10/18 07:12 Dose: 650 mg Barium Sulfate (E-Z-Hd) 50.3999 gm .ROUTE .STK-MED ONE Stop: 07/15/18 10:01 Barium Sulfate (E-Z-Paste) 10.00970 gm PO .STK-MED ONE Stop: 07/15/18 10:01 Cephalexin (Keflex) 500 mg PO BID [facility] Stop: 07/23/18 20:01 Last Admin: 07/23/18 19:57 Dose: 500 mg Cephalexin (Keflex) 250 mg PO BID [facility] Stop: 09/03/18 08:01 Last Admin: 09/03/18 08:20 Dose: 250 mg Docusate Sodium (Colace) 100 mg PO DAILY [facility] Last Admin: 10/30/18 08:32 Dose: 100 mg Gabapentin (Neurontin) 300 mg PO BEDTIME [facility] Last Admin: 06/13/18 20:48 Dose: 300 mg Gabapentin (Neurontin) 100 mg PO 08,12 [facility] Last Admin: 06/14/18 08:17 Dose: 100 mg Gabapentin (Neurontin) 100 mg PO BID@0800,1200 [facility] Last Admin: 07/10/18 07:12 Dose: 100 mg Gabapentin (Neurontin) 300 mg PO BEDTIME [facility] Last Admin: 08/08/18 20:34 Dose: 300 mg Metoprolol Succinate (Toprol Xl) 25 mg PO DAILY [facility] Last Admin: 08/09/18 08:58 Dose: 25 mg Miconazole (Desenex 2%) 0 gm TOP BID [facility] Last Admin: 07/01/18 09:00 Dose: Not Given Miconazole (Desenex 2%) 0 gm TOP BID PRN PRN Reason: Itching Last Admin: 06/29/18 07:55 Dose: 1 dose Miconazole (Desenex 2%) 0 gm TOP TID [facility] Last Admin: 10/16/18 15:40 Dose: 1 applic Miconazole (Desenex 2%) 0 gm TOP TID [facility] Stop: 10/21/18 20:01 Last Admin: 10/19/18 11:24 Dose: Not Given Miconazole (Desenex 2%) 0 gm TOP TID PRN PRN Reason: Rash Stop: 10/21/18 20:01 Last Admin: 10/20/18 19:16 Dose: 1 applic Nitrofurantoin Macrocrystals (Macrobid) 100 mg PO BID [facility] Stop: 09/03/18 17:01 Last Admin: 08/29/18 18:16 Dose: Not Given Warfarin. 2.5mg (1/2 Of 5mg Tab): Own Supply 0 mg PO MOWEFR@1999 [facility] Last Admin: 06/24/18 20:21 Dose: 2.5 mg Warfarin. 5mg (Own (Supply)) 0 mg PO SUTUTHSA@1999 [facility] Last Admin: 07/02/18 19:41 Dose: 5 mg Warfarin. 2.5mg (1/2 Of 5mg Tab): Own Supply 0 mg PO MOWEFR@1999 [facility] Last Admin: 06/28/18 20:20 Dose: 2.5 mg Warfarin. 2.5mg (1/2 Of 5mg Tab): Own Supply 0 mg PO ONETIME ONE Stop: 06/29/18 20:01 Last Admin: 06/29/18 19:34 Dose: 2.5 mg Warfarin. 5mg (Own (Supply)) 0 mg PO ONETIME ONE Stop: 06/30/18 20:01 Last Admin: 06/30/18 20:23 Dose: 5 mg Warfarin. 5mg (Own (Supply)) 0 mg PO ONETIME ONE Stop: 07/01/18 20:01 Last Admin: 07/01/18 20:30 Dose: 10 mg Warfarin. 5mg (Own (Supply)) 0 mg PO ONETIME ONE Stop: 07/02/18 20:01 Last Admin: 07/02/18 20:30 Dose: 5 mg Warfarin. 5mg (Own (Supply)) 2.5 mg PO ONETIME ONE Stop: 07/05/18 20:01 Last Admin: 07/05/18 19:55 Dose: 2.5 mg Warfarin. 5mg (Own (Supply)) 5 mg PO ONETIME ONE Stop: 07/06/18 20:01 Last Admin: 07/06/18 19:49 Dose: 5 mg Warfarin. 5mg (Own (Supply)) 5 mg PO ONETIME ONE Stop: 07/07/18 20:01 Last Admin: 07/07/18 19:21 Dose: 5 mg Warfarin. 5mg (Own (Supply)) 2.5 mg PO ONETIME ONE Stop: 07/08/18 20:01 Last Admin: 07/08/18 20:04 Dose: 2.5 mg Warfarin. 2.5mg (1/2 Of 5mg Tab): Own Supply 0 mg PO MOWEFR@1999 [facility] Last Admin: 07/12/18 20:03 Dose: 2.5 mg Warfarin. 5mg (Own (Supply)) 0 mg PO [email or web address]@1999 [facility] Last Admin: 07/13/18 20:20 Dose: 5 mg Warfarin. 2.5mg (1/2 Of 5mg Tab): Own Supply 2.5 mg PO ONETIME ONE Stop: 07/13/18 20:01 Last Admin: 07/13/18 20:20 Dose: 2.5 mg Warfarin. 5mg (Own (Supply)) 0 mg PO ONETIME ONE Stop: 07/14/18 20:01 Last Admin: 07/14/18 19:43 Dose: 10 mg Warfarin. 5mg (Own (Supply)) 0 mg PO ONETIME ONE Stop: 07/15/18 20:01 Last Admin: 07/15/18 20:16 Dose: 5 mg Warfarin 5mg (Own (Supply)) 0 mg PO ONETIME ONE Stop: 07/18/18 20:01 Last Admin: 07/18/18 20:41 Dose: 5 mg Warfarin 5mg (Own (Supply)) 0 mg PO ONETIME ONE Stop: 07/19/18 20:01 Last Admin: 07/19/18 20:02 Dose: 5 mg Warfarin 5mg (Own (Supply)) 0 mg PO ONETIME ONE Stop: 07/20/18 20:01 Last Admin: 07/20/18 21:03 Dose: 5 mg Warfarin 5mg (Own (Supply)) 0 mg PO ONETIME ONE Stop: 07/21/18 20:01 Last Admin: 07/21/18 20:23 Dose: 2.5 mg Warfarin. 2.5mg (1/2 Of 5mg Tab): Own Supply 0 mg PO MOWEFR@1999 [facility] Last Admin: 07/31/18 19:24 Dose: 2.5 mg Warfarin. 5mg (Own (Supply)) 0 mg PO [email or web address]@1999 [facility] Last Admin: 08/01/18 19:59 Dose: 5 mg Polyethylene Glycol (Miralax) 17 gm PO DAILY PRN PRN Reason: Constipation Ropinirole HCl (Requip) 0.5 mg PO BEDTIME [facility] Last Admin: 06/13/18 20:36 Dose: Not Given Ropinirole HCl (Requip) 0.5 mg PO BEDTIME [facility] Last Admin: 06/13/18 20:49 Dose: Not Given Ropinirole HCl (Requip) 0.5 mg PO BEDTIME [facility] Senna/Docusate Sodium (Senna Plus) 1 tab PO DAILY [facility] Last Admin: 10/30/18 08:32 Dose: 1 tab Warfarin Sodium (Coumadin) 5 mg PO ASDIRECTED [facility] Warfarin Sodium (Coumadin) 2.5 mg PO ONETIME ONE Stop: 06/16/18 20:01 Last Admin: 06/16/18 20:45 Dose: 2.5 mg Warfarin Sodium (Coumadin) 1 mg PO DAILY@1999 [facility] Stop: 07/16/18 20:01 Last Admin: 07/16/18 19:47 Dose: 1 mg Warfarin Sodium (Coumadin) 2.5 mg PO DAILY@1999 [facility] Stop: 07/17/18 20:01 Last Admin: 07/17/18 19:39 Dose: 2.5 mg - Problem List Review Problem List Initiated/Reviewed/Updated: Yes - My Orders Last 24 Hours: My Active Orders 11/29/18 07:00 INR,PT,PROTHROMBIN TIME [COAG] Q28D 12/27/18 07:00 INR,PT,PROTHROMBIN TIME [COAG] Q28D 01/24/19 07:00 INR,PT,PROTHROMBIN TIME [COAG] Q28D 02/21/19 07:00 INR,PT,PROTHROMBIN TIME [COAG] Q28D
--- NOTE | 2018-11-12 13:56 | PCM.PN ---
- General Info Date of Service: 09/24/18 Admission Dx/Problem (Free Text): Subjective: Patient is doing well. No complaints currently. Did have an episode of chest pain was seen by internal medicine last month. EKG showed unchanged age for fibrillation, troponin was negative. Patient's on chronic Coumadin therapy, INR therapeutic. She was treated for UTI. Objective: Vital signs remain normal. Pulse remains mostly regular heart and lungs clear extremity is warm well perfused. A/P: Doing well in long-term SB. Continue cares. Rate stable as is INR - Patient Data Vitals - Most Recent: Last Vital Signs Temp 37.0 C 11/08/18 08:00 Pulse 88 11/08/18 08:00 Resp 20 10/25/18 08:00 BP 101/42 L 11/08/18 08:00 Pulse Ox 93 L 11/08/18 08:00 Weight - Most Recent: 81.873 kg I&O - Last 24 Hours: Intake & Output 11/11/18 11/12/18 11/12/18 22:59 06:59 14:59 Intake Total 240 Balance 240 Med Orders - Current: Current Medications Acetaminophen (Tylenol) 650 mg PO 0200,0800,1300,2000 [facility] Last Admin: 11/12/18 13:44 Dose: 650 mg Calcium Carbonate/Glycine (Tums Extra Strength) 750 mg PO TID PRN PRN Reason: Dyspepsia Last Admin: 10/16/18 12:31 Dose: 750 mg Docusate Sodium (Colace) 100 mg PO DAILY PRN PRN Reason: Constipation Famotidine (Pepcid) 20 mg PO DAILY [facility] Last Admin: 11/12/18 08:05 Dose: 20 mg Furosemide (Lasix) 20 mg PO DAILY [facility] Last Admin: 11/12/18 08:04 Dose: 20 mg Gabapentin (Neurontin) 100 mg PO BID@0800,1300 [facility] Last Admin: 11/12/18 13:44 Dose: 100 mg Melatonin (Melatonin) 6 mg PO BEDTIME [facility] Last Admin: 11/11/18 19:11 Dose: 6 mg Nitroglycerin (Nitrostat) 0.4 mg SL Q5M PRN PRN Reason: Chest Pain Last Admin: 08/24/18 18:00 Dose: 0.4 mg Warfarin. 2.5mg (1/2 Of 5mg Tab): Own Supply 0 mg PO MoTh@1999 [facility] Last Admin: 11/11/18 19:13 Dose: 2.5 mg Warfarin. 5mg (Own (Supply)) 0 mg PO SuTuWeFrSa@1999 [facility] Last Admin: 11/10/18 19:16 Dose: 5 mg Gabapentin. 300mg ( (Own Supply)) 0 mg PO BEDTIME [facility] Last Admin: 11/11/18 19:11 Dose: 300 mg Metoprolol.Er 25mg ( (Own Supply)) 0 mg PO DAILY [facility] Last Admin: 11/12/18 08:04 Dose: 25 mg Pharmacy Consult (Consult To Pharmacy) 1 each .XX ASDIRECTED PRN PRN Reason: consult warfarin/INR Polyethylene Glycol (Miralax) 17 gm PO DAILY [facility] Last Admin: 11/12/18 08:04 Dose: Not Given Ropinirole HCl (Requip) 0.5 mg PO BEDTIME [facility] Last Admin: 11/11/18 19:12 Dose: 0.5 mg Senna/Docusate Sodium (Senna Plus) 1 tab PO DAILY PRN PRN Reason: Constipation Sertraline HCl (Zoloft) 100 mg PO DAILY [facility] Last Admin: 11/12/18 08:04 Dose: 100 mg Discontinued Medications Acetaminophen (Tylenol) 650 mg PO Q6H [facility] Last Admin: 06/21/18 12:43 Dose: Not Given Acetaminophen (Tylenol) 650 mg PO 0200,0800,1399,1999 [facility] Last Admin: 07/10/18 07:12 Dose: 650 mg Barium Sulfate (E-Z-Hd) 50.3999 gm .ROUTE .STK-MED ONE Stop: 07/15/18 10:01 Barium Sulfate (E-Z-Paste) 10.66141 gm PO .STK-MED ONE Stop: 07/15/18 10:01 Cephalexin (Keflex) 500 mg PO BID [facility] Stop: 07/23/18 20:01 Last Admin: 07/23/18 19:57 Dose: 500 mg Cephalexin (Keflex) 250 mg PO BID [facility] Stop: 09/03/18 08:01 Last Admin: 09/03/18 08:20 Dose: 250 mg Docusate Sodium (Colace) 100 mg PO DAILY [facility] Last Admin: 10/30/18 08:32 Dose: 100 mg Gabapentin (Neurontin) 300 mg PO BEDTIME [facility] Last Admin: 06/13/18 20:48 Dose: 300 mg Gabapentin (Neurontin) 100 mg PO 08,12 [facility] Last Admin: 06/14/18 08:17 Dose: 100 mg Gabapentin (Neurontin) 100 mg PO BID@0800,1200 [facility] Last Admin: 07/10/18 07:12 Dose: 100 mg Gabapentin (Neurontin) 300 mg PO BEDTIME [facility] Last Admin: 08/08/18 20:34 Dose: 300 mg Metoprolol Succinate (Toprol Xl) 25 mg PO DAILY [facility] Last Admin: 08/09/18 08:58 Dose: 25 mg Miconazole (Desenex 2%) 0 gm TOP BID [facility] Last Admin: 07/01/18 09:00 Dose: Not Given Miconazole (Desenex 2%) 0 gm TOP BID PRN PRN Reason: Itching Last Admin: 06/29/18 07:55 Dose: 1 dose Miconazole (Desenex 2%) 0 gm TOP TID [facility] Last Admin: 10/16/18 15:40 Dose: 1 applic Miconazole (Desenex 2%) 0 gm TOP TID [facility] Stop: 10/21/18 20:01 Last Admin: 10/19/18 11:24 Dose: Not Given Miconazole (Desenex 2%) 0 gm TOP TID PRN PRN Reason: Rash Stop: 10/21/18 20:01 Last Admin: 10/20/18 19:16 Dose: 1 applic Nitrofurantoin Macrocrystals (Macrobid) 100 mg PO BID [facility] Stop: 09/03/18 17:01 Last Admin: 08/29/18 18:16 Dose: Not Given Warfarin. 2.5mg (1/2 Of 5mg Tab): Own Supply 0 mg PO [email or web address]@1999 [facility] Last Admin: 06/24/18 20:21 Dose: 2.5 mg Warfarin. 5mg (Own (Supply)) 0 mg PO [email or web address]@1999 [facility] Last Admin: 07/02/18 19:41 Dose: 5 mg Warfarin. 2.5mg (1/2 Of 5mg Tab): Own Supply 0 mg PO [email or web address]@1999 [facility] Last Admin: 06/28/18 20:20 Dose: 2.5 mg Warfarin. 2.5mg (1/2 Of 5mg Tab): Own Supply 0 mg PO ONETIME ONE Stop: 06/29/18 20:01 Last Admin: 06/29/18 19:34 Dose: 2.5 mg Warfarin. 5mg (Own (Supply)) 0 mg PO ONETIME ONE Stop: 06/30/18 20:01 Last Admin: 06/30/18 20:23 Dose: 5 mg Warfarin. 5mg (Own (Supply)) 0 mg PO ONETIME ONE Stop: 07/01/18 20:01 Last Admin: 07/01/18 20:30 Dose: 10 mg Warfarin. 5mg (Own (Supply)) 0 mg PO ONETIME ONE Stop: 07/02/18 20:01 Last Admin: 07/02/18 20:30 Dose: 5 mg Warfarin. 5mg (Own (Supply)) 2.5 mg PO ONETIME ONE Stop: 07/05/18 20:01 Last Admin: 07/05/18 19:55 Dose: 2.5 mg Warfarin. 5mg (Own (Supply)) 5 mg PO ONETIME ONE Stop: 07/06/18 20:01 Last Admin: 07/06/18 19:49 Dose: 5 mg Warfarin. 5mg (Own (Supply)) 5 mg PO ONETIME ONE Stop: 07/07/18 20:01 Last Admin: 07/07/18 19:21 Dose: 5 mg Warfarin. 5mg (Own (Supply)) 2.5 mg PO ONETIME ONE Stop: 07/08/18 20:01 Last Admin: 07/08/18 20:04 Dose: 2.5 mg Warfarin. 2.5mg (1/2 Of 5mg Tab): Own Supply 0 mg PO [email or web address]@1999 [facility] Last Admin: 07/12/18 20:03 Dose: 2.5 mg Warfarin. 5mg (Own (Supply)) 0 mg PO [email or web address]@1999 [facility] Last Admin: 07/13/18 20:20 Dose: 5 mg Warfarin. 2.5mg (1/2 Of 5mg Tab): Own Supply 2.5 mg PO ONETIME ONE Stop: 07/13/18 20:01 Last Admin: 07/13/18 20:20 Dose: 2.5 mg Warfarin. 5mg (Own (Supply)) 0 mg PO ONETIME ONE Stop: 07/14/18 20:01 Last Admin: 07/14/18 19:43 Dose: 10 mg Warfarin. 5mg (Own (Supply)) 0 mg PO ONETIME ONE Stop: 07/15/18 20:01 Last Admin: 07/15/18 20:16 Dose: 5 mg Warfarin 5mg (Own (Supply)) 0 mg PO ONETIME ONE Stop: 07/18/18 20:01 Last Admin: 07/18/18 20:41 Dose: 5 mg Warfarin 5mg (Own (Supply)) 0 mg PO ONETIME ONE Stop: 07/19/18 20:01 Last Admin: 07/19/18 20:02 Dose: 5 mg Warfarin 5mg (Own (Supply)) 0 mg PO ONETIME ONE Stop: 07/20/18 20:01 Last Admin: 07/20/18 21:03 Dose: 5 mg Warfarin 5mg (Own (Supply)) 0 mg PO ONETIME ONE Stop: 07/21/18 20:01 Last Admin: 07/21/18 20:23 Dose: 2.5 mg Warfarin. 2.5mg (1/2 Of 5mg Tab): Own Supply 0 mg PO [email or web address]@1999 [facility] Last Admin: 07/31/18 19:24 Dose: 2.5 mg Warfarin. 5mg (Own (Supply)) 0 mg PO [email or web address]@1999 [facility] Last Admin: 08/01/18 19:59 Dose: 5 mg Polyethylene Glycol (Miralax) 17 gm PO DAILY PRN PRN Reason: Constipation Ropinirole HCl (Requip) 0.5 mg PO BEDTIME [facility] Last Admin: 06/13/18 20:36 Dose: Not Given Ropinirole HCl (Requip) 0.5 mg PO BEDTIME [facility] Last Admin: 06/13/18 20:49 Dose: Not Given Ropinirole HCl (Requip) 0.5 mg PO BEDTIME [facility] Senna/Docusate Sodium (Senna Plus) 1 tab PO DAILY [facility] Last Admin: 10/30/18 08:32 Dose: 1 tab Warfarin Sodium (Coumadin) 5 mg PO ASDIRECTED [facility] Warfarin Sodium (Coumadin) 2.5 mg PO ONETIME ONE Stop: 06/16/18 20:01 Last Admin: 06/16/18 20:45 Dose: 2.5 mg Warfarin Sodium (Coumadin) 1 mg PO DAILY@1999 [facility] Stop: 07/16/18 20:01 Last Admin: 07/16/18 19:47 Dose: 1 mg Warfarin Sodium (Coumadin) 2.5 mg PO DAILY@1999 [facility] Stop: 07/17/18 20:01 Last Admin: 07/17/18 19:39 Dose: 2.5 mg - Problem List Review Problem List Initiated/Reviewed/Updated: Yes - My Orders Last 24 Hours: My Active Orders 11/29/18 07:00 INR,PT,PROTHROMBIN TIME [COAG] Q28D 12/27/18 07:00 INR,PT,PROTHROMBIN TIME [COAG] Q28D 01/24/19 07:00 INR,PT,PROTHROMBIN TIME [COAG] Q28D 02/21/19 07:00 INR,PT,PROTHROMBIN TIME [COAG] Q28D
== END 2018-11-12 14:04 | disposition home or self-care (01) | DRG 641 ==
LOC: VM.MS 16:00 → UNDOADMIN 16:00 → VM.MS 07-12 09:41
PROVIDERS: ADMIT Family Medicine; ATTEND Family Medicine
DX: R62.7 Adult failure to thrive (principal); I13.0 Hypertensive heart and chronic kidney disease with heart failure and stage 1 through stage 4 chronic kidney disease, or unspecified chronic kidney disease; I50.32 Chronic diastolic (congestive) heart failure; N39.0 Urinary tract infection, site not specified; G25.81 Restless legs syndrome; E66.9 Obesity, unspecified; M81.0 Age-related osteoporosis without current pathological fracture; M10.9 Gout, unspecified; K21.9 Gastro-esophageal reflux disease without esophagitis; F41.9 Anxiety disorder, unspecified; F32.9 Major depressive disorder, single episode, unspecified; D64.9 Anemia, unspecified; J44.9 Chronic obstructive pulmonary disease, unspecified; N18.3 Chronic kidney disease, stage 3 (moderate); G89.29 Other chronic pain; M54.9 Dorsalgia, unspecified; I48.91 Unspecified atrial fibrillation; F09 Unspecified mental disorder due to known physiological condition; F03.90 Unspecified dementia, unspecified severity, without behavioral disturbance, psychotic disturbance, mood disturbance, and anxiety; Z88.8 Allergy status to other drugs, medicaments and biological substances; Z79.01 Long term (current) use of anticoagulants; Z90.49 Acquired absence of other specified parts of digestive tract; Z86.718 Personal history of other venous thrombosis and embolism; Z85.828 Personal history of other malignant neoplasm of skin; Z68.31 Body mass index [BMI] 31.0-31.9, adult; Z79.899 Other long term (current) drug therapy
CPT/HCPCS: 36415; 74230; 81001; 81003; 82040; 82607; 84443; 84484; 85025; 85610; 85652; 87086; 87088; 87186; 92507-GN; 92526-GN; 92611-GN; 93005; 94760; 97110-GP; 97116-GP; 97162-GP; 97165-GO; 97530-GP; 97535-GO; A9270-GY

== ENCOUNTER 2019-11-12 09:10 | Inpatient (IN) | payer MEDICAID, MEDICARE ==
[2019-11-12] MEDS ORDERED: Polyethylene Glycol 3350 Powder 17 GM Packet PO PRN (10:48)
[2019-11-12] MEDS ORDERED: Nitroglycerin 0.4 MG Tab.SL (OWN SUPPLY) SL PRN (10:48)
[2019-11-12] MEDS ORDERED: Docusate Sodium 100 MG Cap PO PRN (10:48)
[2019-11-12] MEDS ORDERED: Miconazole 2% Top Powder 45 GM Container TOP PRN (10:48)
[2019-11-12] MEDS: Acetaminophen 325 MG Tab PO SCH ×2 (12:40→19:41)
[2019-11-12] MEDS: Gabapentin 100 MG Cap (OWN SUPPLY) PO SCH (12:40)
[2019-11-12] MEDS: Calcium Carbonate 750 MG Tab.Chew PO PRN (19:39)
[2019-11-12] MEDS: Gabapentin 300 MG Cap (OWN SUPPLY) PO SCH (19:39)
[2019-11-12] MEDS: Melatonin 3 MG Tab PO SCH (19:41)
[2019-11-12] MEDS: ROPINIROLE 0.5 MG PO SCH (19:41)
[2019-11-12] MEDS: WARFARIN 5 MG PO SCH (19:42)
[2019-11-13] MEDS: Metoprolol Succinate 25 MG Tab.ER (OWN SUPPLY) PO SCH (08:04)
[2019-11-13] MEDS: Acetaminophen 325 MG Tab PO SCH ×3 (08:05→19:22)
[2019-11-13] MEDS: Multivitamins with Iron/Calcium/Folic Acid/Minerals Tab PO SCH (08:05)
[2019-11-13] MEDS: Sertraline 100 MG Tab (OWN SUPPLY) PO SCH (08:05)
[2019-11-13] MEDS: Famotidine 20 MG Tab PO SCH (08:05)
[2019-11-13] MEDS: Vitamin B Complex Tab PO SCH (08:05)
[2019-11-13] MEDS: Furosemide 20 MG Tab (OWN SUPPLY) PO SCH (08:05)
[2019-11-13] MEDS: Ferrous Sulfate 325 MG Tab PO SCH (08:05)
[2019-11-13] MEDS: Gabapentin 100 MG Cap (OWN SUPPLY) PO SCH ×2 (08:05→12:09)
[2019-11-13] MEDS: Omeprazole 20 MG Cap.CR PO SCH (08:06)
[2019-11-13] MEDS: Calcium Carbonate 750 MG Tab.Chew PO PRN ×2 (12:10→19:23)
[2019-11-13] MEDS: Melatonin 3 MG Tab PO SCH (19:22)
[2019-11-13] MEDS: Gabapentin 300 MG Cap (OWN SUPPLY) PO SCH (19:22)
[2019-11-13] MEDS: ROPINIROLE 0.5 MG PO SCH (19:23)
[2019-11-13] MEDS ORDERED: WARFARIN 5 MG PO SCH (20:00)
[2019-11-14] MEDS: Famotidine 20 MG Tab PO SCH (09:33)
[2019-11-14] MEDS: Furosemide 20 MG Tab (OWN SUPPLY) PO SCH (09:33)
[2019-11-14] MEDS: Metoprolol Succinate 25 MG Tab.ER (OWN SUPPLY) PO SCH (09:33)
[2019-11-14] MEDS: Vitamin B Complex Tab PO SCH (09:33)
[2019-11-14] MEDS: Omeprazole 20 MG Cap.CR PO SCH (09:34)
[2019-11-14] MEDS: Multivitamins with Iron/Calcium/Folic Acid/Minerals Tab PO SCH (09:34)
[2019-11-14] MEDS: Sertraline 100 MG Tab (OWN SUPPLY) PO SCH (09:34)
[2019-11-14] MEDS: Acetaminophen 325 MG Tab PO SCH ×3 (09:34→19:59)
[2019-11-14] MEDS: Gabapentin 100 MG Cap (OWN SUPPLY) PO SCH ×2 (09:34→13:05)
[2019-11-14] MEDS: Calcium Carbonate 750 MG Tab.Chew PO PRN (13:05)
[2019-11-14] MEDS: Gabapentin 300 MG Cap (OWN SUPPLY) PO SCH (19:56)
[2019-11-14] MEDS: WARFARIN 5 MG PO SCH ×2 (19:57→19:58)
[2019-11-14] MEDS: ROPINIROLE 0.5 MG PO SCH (19:57)
[2019-11-14] MEDS: Melatonin 3 MG Tab PO SCH (19:59)
[2019-11-15] MEDS: Metoprolol Succinate 25 MG Tab.ER (OWN SUPPLY) PO SCH (10:02)
[2019-11-15] MEDS: Gabapentin 100 MG Cap (OWN SUPPLY) PO SCH ×2 (10:02→13:53)
[2019-11-15] MEDS: Sertraline 100 MG Tab (OWN SUPPLY) PO SCH (10:03)
[2019-11-15] MEDS: Acetaminophen 325 MG Tab PO SCH ×3 (10:03→19:52)
[2019-11-15] MEDS: Furosemide 20 MG Tab (OWN SUPPLY) PO SCH (10:03)
[2019-11-15] MEDS: Famotidine 20 MG Tab PO SCH (10:04)
[2019-11-15] MEDS: Ferrous Sulfate 325 MG Tab PO SCH (10:04)
[2019-11-15] MEDS: Omeprazole 20 MG Cap.CR PO SCH (10:04)
[2019-11-15] MEDS: Multivitamins with Iron/Calcium/Folic Acid/Minerals Tab PO SCH (10:04)
[2019-11-15] MEDS: Vitamin B Complex Tab PO SCH (10:04)
[2019-11-15] MEDS: Calcium Carbonate 750 MG Tab.Chew PO PRN (10:05)
[2019-11-15] MEDS: Gabapentin 300 MG Cap (OWN SUPPLY) PO SCH (19:51)
[2019-11-15] MEDS: WARFARIN 5 MG PO SCH (19:51)
[2019-11-15] MEDS: Melatonin 3 MG Tab PO SCH (19:52)
[2019-11-15] MEDS: ROPINIROLE 0.5 MG PO SCH (19:52)
[2019-11-16] MEDS: Gabapentin 100 MG Cap (OWN SUPPLY) PO SCH ×2 (09:29→14:30)
[2019-11-16] MEDS: Metoprolol Succinate 25 MG Tab.ER (OWN SUPPLY) PO SCH (09:29)
[2019-11-16] MEDS: Calcium Carbonate 750 MG Tab.Chew PO PRN ×2 (09:29→19:52)
[2019-11-16] MEDS: Furosemide 20 MG Tab (OWN SUPPLY) PO SCH (09:32)
[2019-11-16] MEDS: Acetaminophen 325 MG Tab PO SCH ×3 (09:32→19:53)
[2019-11-16] MEDS: Sertraline 100 MG Tab (OWN SUPPLY) PO SCH (09:32)
[2019-11-16] MEDS: Famotidine 20 MG Tab PO SCH (09:33)
[2019-11-16] MEDS: Multivitamins with Iron/Calcium/Folic Acid/Minerals Tab PO SCH (09:33)
[2019-11-16] MEDS: Vitamin B Complex Tab PO SCH (09:33)
[2019-11-16] MEDS: Omeprazole 20 MG Cap.CR PO SCH (09:33)
[2019-11-16] MEDS: Melatonin 3 MG Tab PO SCH (19:50)
[2019-11-16] MEDS: ROPINIROLE 0.5 MG PO SCH (19:50)
[2019-11-16] MEDS: Gabapentin 300 MG Cap (OWN SUPPLY) PO SCH (19:52)
[2019-11-16] MEDS: WARFARIN 5 MG PO SCH (19:52)
[2019-11-17] MEDS: Sertraline 100 MG Tab (OWN SUPPLY) PO SCH (07:53)
[2019-11-17] MEDS: Furosemide 20 MG Tab (OWN SUPPLY) PO SCH (07:53)
[2019-11-17] MEDS: Metoprolol Succinate 25 MG Tab.ER (OWN SUPPLY) PO SCH (07:53)
[2019-11-17] MEDS: Multivitamins with Iron/Calcium/Folic Acid/Minerals Tab PO SCH (07:54)
[2019-11-17] MEDS: Famotidine 20 MG Tab PO SCH (07:54)
[2019-11-17] MEDS: Acetaminophen 325 MG Tab PO SCH ×3 (07:54→20:04)
[2019-11-17] MEDS: Ferrous Sulfate 325 MG Tab PO SCH (07:54)
[2019-11-17] MEDS: Omeprazole 20 MG Cap.CR PO SCH (07:54)
[2019-11-17] MEDS: Vitamin B Complex Tab PO SCH (07:54)
[2019-11-17] MEDS: Gabapentin 100 MG Cap (OWN SUPPLY) PO SCH ×2 (07:55→15:30)
[2019-11-17] MEDS: Calcium Carbonate 750 MG Tab.Chew PO PRN ×2 (07:56→20:03)
[2019-11-17] MEDS: ROPINIROLE 0.5 MG PO SCH (20:00)
[2019-11-17] MEDS: WARFARIN 5 MG PO SCH (20:01)
[2019-11-17] MEDS: Gabapentin 300 MG Cap (OWN SUPPLY) PO SCH (20:02)
[2019-11-17] MEDS: Melatonin 3 MG Tab PO SCH (20:02)
[2019-11-18] MEDS: Metoprolol Succinate 25 MG Tab.ER (OWN SUPPLY) PO SCH (07:51)
[2019-11-18] MEDS: Sertraline 100 MG Tab (OWN SUPPLY) PO SCH (07:53)
[2019-11-18] MEDS: Gabapentin 100 MG Cap (OWN SUPPLY) PO SCH ×2 (07:53→17:20)
[2019-11-18] MEDS: Furosemide 20 MG Tab (OWN SUPPLY) PO SCH (07:53)
[2019-11-18] MEDS: Vitamin B Complex Tab PO SCH (07:54)
[2019-11-18] MEDS: Acetaminophen 325 MG Tab PO SCH ×3 (07:54→20:10)
[2019-11-18] MEDS: Multivitamins with Iron/Calcium/Folic Acid/Minerals Tab PO SCH (07:55)
[2019-11-18] MEDS: Famotidine 20 MG Tab PO SCH (07:55)
[2019-11-18] MEDS: Omeprazole 20 MG Cap.CR PO SCH (07:55)
[2019-11-18] MEDS: Calcium Carbonate 750 MG Tab.Chew PO PRN ×2 (07:56→17:20)
[2019-11-18] MEDS: Melatonin 3 MG Tab PO SCH (20:09)
[2019-11-18] MEDS: Gabapentin 300 MG Cap (OWN SUPPLY) PO SCH (20:10)
[2019-11-18] MEDS: ROPINIROLE 0.5 MG PO SCH (20:10)
[2019-11-18] MEDS: WARFARIN 5 MG PO SCH (20:11)
[2019-11-19] MEDS: Sertraline 100 MG Tab (OWN SUPPLY) PO SCH (08:36)
[2019-11-19] MEDS: Ferrous Sulfate 325 MG Tab PO SCH (08:36)
[2019-11-19] MEDS: Acetaminophen 325 MG Tab PO SCH ×3 (08:36→19:22)
[2019-11-19] MEDS: Omeprazole 20 MG Cap.CR PO SCH (08:36)
[2019-11-19] MEDS: Metoprolol Succinate 25 MG Tab.ER (OWN SUPPLY) PO SCH (08:36)
[2019-11-19] MEDS: Furosemide 20 MG Tab (OWN SUPPLY) PO SCH (08:36)
[2019-11-19] MEDS: Famotidine 20 MG Tab PO SCH (08:37)
[2019-11-19] MEDS: Vitamin B Complex Tab PO SCH (08:37)
[2019-11-19] MEDS: Multivitamins with Iron/Calcium/Folic Acid/Minerals Tab PO SCH (08:37)
[2019-11-19] MEDS: Gabapentin 100 MG Cap (OWN SUPPLY) PO SCH ×2 (08:37→14:58)
[2019-11-19] MEDS: Gabapentin 300 MG Cap (OWN SUPPLY) PO SCH (19:22)
[2019-11-19] MEDS: Melatonin 3 MG Tab PO SCH (19:22)
[2019-11-19] MEDS: WARFARIN 5 MG PO SCH (19:23)
[2019-11-19] MEDS: ROPINIROLE 0.5 MG PO SCH (19:23)
[2019-11-19] MEDS: Calcium Carbonate 750 MG Tab.Chew PO PRN (19:27)
[2019-11-20] MEDS: Metoprolol Succinate 25 MG Tab.ER (OWN SUPPLY) PO SCH (07:19)
[2019-11-20] MEDS: Furosemide 20 MG Tab (OWN SUPPLY) PO SCH (07:19)
[2019-11-20] MEDS: Gabapentin 100 MG Cap (OWN SUPPLY) PO SCH ×2 (07:20→13:08)
[2019-11-20] MEDS: Sertraline 100 MG Tab (OWN SUPPLY) PO SCH (07:20)
[2019-11-20] MEDS: Vitamin B Complex Tab PO SCH (07:20)
[2019-11-20] MEDS: Famotidine 20 MG Tab PO SCH (07:20)
[2019-11-20] MEDS: Omeprazole 20 MG Cap.CR PO SCH (07:20)
[2019-11-20] MEDS: Multivitamins with Iron/Calcium/Folic Acid/Minerals Tab PO SCH (07:20)
[2019-11-20] MEDS: Acetaminophen 325 MG Tab PO SCH ×3 (07:20→19:28)
[2019-11-20] MEDS: Melatonin 3 MG Tab PO SCH (19:28)
[2019-11-20] MEDS: Gabapentin 300 MG Cap (OWN SUPPLY) PO SCH (19:29)
[2019-11-20] MEDS: ROPINIROLE 0.5 MG PO SCH (19:29)
[2019-11-20] MEDS: WARFARIN 5 MG PO SCH (19:29)
[2019-11-20] MEDS: Calcium Carbonate 750 MG Tab.Chew PO PRN (19:31)
[2019-11-21] MEDS: Ferrous Sulfate 325 MG Tab PO SCH (07:52)
[2019-11-21] MEDS: Acetaminophen 325 MG Tab PO SCH ×3 (07:52→19:46)
[2019-11-21] MEDS: Multivitamins with Iron/Calcium/Folic Acid/Minerals Tab PO SCH (07:52)
[2019-11-21] MEDS: Gabapentin 100 MG Cap (OWN SUPPLY) PO SCH ×2 (07:52→14:20)
[2019-11-21] MEDS: Omeprazole 20 MG Cap.CR PO SCH (07:52)
[2019-11-21] MEDS: Famotidine 20 MG Tab PO SCH (07:52)
[2019-11-21] MEDS: Vitamin B Complex Tab PO SCH (07:52)
[2019-11-21] MEDS: Calcium Carbonate 750 MG Tab.Chew PO PRN ×2 (07:53→19:47)
[2019-11-21] MEDS: Sertraline 100 MG Tab (OWN SUPPLY) PO SCH (07:53)
[2019-11-21] MEDS: Metoprolol Succinate 25 MG Tab.ER (OWN SUPPLY) PO SCH (07:53)
[2019-11-21] MEDS: Furosemide 20 MG Tab (OWN SUPPLY) PO SCH (07:53)
[2019-11-21] MEDS: ROPINIROLE 0.5 MG PO SCH (19:44)
[2019-11-21] MEDS: Gabapentin 300 MG Cap (OWN SUPPLY) PO SCH (19:44)
[2019-11-21] MEDS: WARFARIN 5 MG PO SCH (19:45)
[2019-11-21] MEDS: Melatonin 3 MG Tab PO SCH (19:45)
[2019-11-22] MEDS: Omeprazole 20 MG Cap.CR PO SCH (08:57)
[2019-11-22] MEDS: Gabapentin 100 MG Cap (OWN SUPPLY) PO SCH ×2 (08:57→12:11)
[2019-11-22] MEDS: Acetaminophen 325 MG Tab PO SCH ×3 (08:57→19:26)
[2019-11-22] MEDS: Famotidine 20 MG Tab PO SCH (08:58)
[2019-11-22] MEDS: Multivitamins with Iron/Calcium/Folic Acid/Minerals Tab PO SCH (08:58)
[2019-11-22] MEDS: Metoprolol Succinate 25 MG Tab.ER (OWN SUPPLY) PO SCH (08:58)
[2019-11-22] MEDS: Vitamin B Complex Tab PO SCH (08:58)
[2019-11-22] MEDS: Furosemide 20 MG Tab (OWN SUPPLY) PO SCH (08:59)
[2019-11-22] MEDS: Sertraline 100 MG Tab (OWN SUPPLY) PO SCH (08:59)
[2019-11-22] MEDS: Gabapentin 300 MG Cap (OWN SUPPLY) PO SCH (19:25)
[2019-11-22] MEDS: Melatonin 3 MG Tab PO SCH (19:25)
[2019-11-22] MEDS: ROPINIROLE 0.5 MG PO SCH (19:26)
[2019-11-22] MEDS: WARFARIN 5 MG PO SCH (19:26)
[2019-11-23] MEDS: Metoprolol Succinate 25 MG Tab.ER (OWN SUPPLY) PO SCH (07:48)
[2019-11-23] MEDS: Furosemide 20 MG Tab (OWN SUPPLY) PO SCH (07:48)
[2019-11-23] MEDS: Sertraline 100 MG Tab (OWN SUPPLY) PO SCH (07:48)
[2019-11-23] MEDS: Gabapentin 100 MG Cap (OWN SUPPLY) PO SCH ×2 (07:48→12:16)
[2019-11-23] MEDS: Acetaminophen 325 MG Tab PO SCH ×3 (07:49→19:53)
[2019-11-23] MEDS: Vitamin B Complex Tab PO SCH (07:49)
[2019-11-23] MEDS: Ferrous Sulfate 325 MG Tab PO SCH (07:49)
[2019-11-23] MEDS: Multivitamins with Iron/Calcium/Folic Acid/Minerals Tab PO SCH (07:49)
[2019-11-23] MEDS: Famotidine 20 MG Tab PO SCH (07:49)
[2019-11-23] MEDS: Omeprazole 20 MG Cap.CR PO SCH (07:49)
[2019-11-23] MEDS: Gabapentin 300 MG Cap (OWN SUPPLY) PO SCH (19:52)
[2019-11-23] MEDS: ROPINIROLE 0.5 MG PO SCH (19:52)
[2019-11-23] MEDS: WARFARIN 5 MG PO SCH (19:52)
[2019-11-23] MEDS: Melatonin 3 MG Tab PO SCH (19:53)
[2019-11-24] MEDS: Vitamin B Complex Tab PO SCH (08:53)
[2019-11-24] MEDS: Furosemide 20 MG Tab (OWN SUPPLY) PO SCH (08:53)
[2019-11-24] MEDS: Famotidine 20 MG Tab PO SCH (08:53)
[2019-11-24] MEDS: Sertraline 100 MG Tab (OWN SUPPLY) PO SCH (08:53)
[2019-11-24] MEDS: Omeprazole 20 MG Cap.CR PO SCH (08:53)
[2019-11-24] MEDS: Acetaminophen 325 MG Tab PO SCH ×3 (08:53→19:32)
[2019-11-24] MEDS: Metoprolol Succinate 25 MG Tab.ER (OWN SUPPLY) PO SCH (08:53)
[2019-11-24] MEDS: Gabapentin 100 MG Cap (OWN SUPPLY) PO SCH ×2 (08:54→13:50)
[2019-11-24] MEDS: Multivitamins with Iron/Calcium/Folic Acid/Minerals Tab PO SCH (08:54)
[2019-11-24] MEDS: ROPINIROLE 0.5 MG PO SCH (19:31)
[2019-11-24] MEDS: WARFARIN 5 MG PO SCH (19:31)
[2019-11-24] MEDS: Melatonin 3 MG Tab PO SCH (19:32)
[2019-11-24] MEDS: Gabapentin 300 MG Cap (OWN SUPPLY) PO SCH (19:34)
[2019-11-25] MEDS: Sertraline 100 MG Tab (OWN SUPPLY) PO SCH (08:42)
[2019-11-25] MEDS: Furosemide 20 MG Tab (OWN SUPPLY) PO SCH (08:42)
[2019-11-25] MEDS: Ferrous Sulfate 325 MG Tab PO SCH (08:43)
[2019-11-25] MEDS: Multivitamins with Iron/Calcium/Folic Acid/Minerals Tab PO SCH (08:43)
[2019-11-25] MEDS: Omeprazole 20 MG Cap.CR PO SCH (08:43)
[2019-11-25] MEDS: Metoprolol Succinate 25 MG Tab.ER (OWN SUPPLY) PO SCH (08:43)
[2019-11-25] MEDS: Gabapentin 100 MG Cap (OWN SUPPLY) PO SCH ×2 (08:43→12:36)
[2019-11-25] MEDS: Acetaminophen 325 MG Tab PO SCH ×3 (08:43→19:42)
[2019-11-25] MEDS: Famotidine 20 MG Tab PO SCH (08:43)
[2019-11-25] MEDS: Vitamin B Complex Tab PO SCH (08:43)
[2019-11-25] MEDS: Gabapentin 300 MG Cap (OWN SUPPLY) PO SCH (19:40)
[2019-11-25] MEDS: WARFARIN 5 MG PO SCH (19:41)
[2019-11-25] MEDS: ROPINIROLE 0.5 MG PO SCH (19:41)
[2019-11-25] MEDS: Melatonin 3 MG Tab PO SCH (19:44)
[2019-11-26] MEDS: Metoprolol Succinate 25 MG Tab.ER (OWN SUPPLY) PO SCH (07:55)
[2019-11-26] MEDS: Sertraline 100 MG Tab (OWN SUPPLY) PO SCH (07:55)
[2019-11-26] MEDS: Furosemide 20 MG Tab (OWN SUPPLY) PO SCH (07:55)
[2019-11-26] MEDS: Gabapentin 100 MG Cap (OWN SUPPLY) PO SCH ×2 (07:55→12:41)
[2019-11-26] MEDS: Omeprazole 20 MG Cap.CR PO SCH (07:56)
[2019-11-26] MEDS: Famotidine 20 MG Tab PO SCH (07:56)
[2019-11-26] MEDS: Vitamin B Complex Tab PO SCH (07:56)
[2019-11-26] MEDS: Acetaminophen 325 MG Tab PO SCH ×3 (07:56→19:50)
[2019-11-26] MEDS: Multivitamins with Iron/Calcium/Folic Acid/Minerals Tab PO SCH (07:56)
[2019-11-26] MEDS: Gabapentin 300 MG Cap (OWN SUPPLY) PO SCH (19:49)
[2019-11-26] MEDS: WARFARIN 5 MG PO SCH (19:50)
[2019-11-26] MEDS: ROPINIROLE 0.5 MG PO SCH (19:50)
[2019-11-26] MEDS: Melatonin 3 MG Tab PO SCH (20:29)
[2019-11-27] MEDS: Furosemide 20 MG Tab (OWN SUPPLY) PO SCH (08:34)
[2019-11-27] MEDS: Gabapentin 100 MG Cap (OWN SUPPLY) PO SCH ×2 (08:35→12:27)
[2019-11-27] MEDS: Ferrous Sulfate 325 MG Tab PO SCH (08:35)
[2019-11-27] MEDS: Sertraline 100 MG Tab (OWN SUPPLY) PO SCH (08:35)
[2019-11-27] MEDS: Metoprolol Succinate 25 MG Tab.ER (OWN SUPPLY) PO SCH (08:35)
[2019-11-27] MEDS: Acetaminophen 325 MG Tab PO SCH ×3 (08:35→19:53)
[2019-11-27] MEDS: Multivitamins with Iron/Calcium/Folic Acid/Minerals Tab PO SCH (08:35)
[2019-11-27] MEDS: Omeprazole 20 MG Cap.CR PO SCH (08:35)
[2019-11-27] MEDS: Famotidine 20 MG Tab PO SCH (08:35)
[2019-11-27] MEDS: Vitamin B Complex Tab PO SCH (08:36)
[2019-11-27] MEDS: Gabapentin 300 MG Cap (OWN SUPPLY) PO SCH (19:51)
[2019-11-27] MEDS: WARFARIN 5 MG PO SCH (19:52)
[2019-11-27] MEDS: ROPINIROLE 0.5 MG PO SCH (19:52)
[2019-11-27] MEDS: Melatonin 3 MG Tab PO SCH (19:53)
[2019-11-28] MEDS: Acetaminophen 325 MG Tab PO SCH ×3 (07:27→20:55)
[2019-11-28] MEDS: Multivitamins with Iron/Calcium/Folic Acid/Minerals Tab PO SCH (07:27)
[2019-11-28] MEDS: Vitamin B Complex Tab PO SCH (07:27)
[2019-11-28] MEDS: Famotidine 20 MG Tab PO SCH (07:27)
[2019-11-28] MEDS: Omeprazole 20 MG Cap.CR PO SCH (07:27)
[2019-11-28] MEDS: Furosemide 20 MG Tab (OWN SUPPLY) PO SCH (07:28)
[2019-11-28] MEDS: Sertraline 100 MG Tab (OWN SUPPLY) PO SCH (07:28)
[2019-11-28] MEDS: Metoprolol Succinate 25 MG Tab.ER (OWN SUPPLY) PO SCH (07:28)
[2019-11-28] MEDS: Gabapentin 100 MG Cap (OWN SUPPLY) PO SCH ×2 (07:28→12:05)
[2019-11-28] MEDS: Melatonin 3 MG Tab PO SCH (20:54)
[2019-11-28] MEDS: Gabapentin 300 MG Cap (OWN SUPPLY) PO SCH (21:00)
[2019-11-28] MEDS: ROPINIROLE 0.5 MG PO SCH (21:00)
[2019-11-28] MEDS: WARFARIN 5 MG PO SCH (21:00)
[2019-11-29] MEDS: Vitamin B Complex Tab PO SCH (07:51)
[2019-11-29] MEDS: Famotidine 20 MG Tab PO SCH (07:51)
[2019-11-29] MEDS: Ferrous Sulfate 325 MG Tab PO SCH (07:51)
[2019-11-29] MEDS: Multivitamins with Iron/Calcium/Folic Acid/Minerals Tab PO SCH (07:51)
[2019-11-29] MEDS: Omeprazole 20 MG Cap.CR PO SCH (07:51)
[2019-11-29] MEDS: Acetaminophen 325 MG Tab PO SCH ×3 (07:51→19:54)
[2019-11-29] MEDS: Gabapentin 100 MG Cap (OWN SUPPLY) PO SCH ×2 (07:52→12:01)
[2019-11-29] MEDS: Metoprolol Succinate 25 MG Tab.ER (OWN SUPPLY) PO SCH (07:52)
[2019-11-29] MEDS: Sertraline 100 MG Tab (OWN SUPPLY) PO SCH (07:52)
[2019-11-29] MEDS: Furosemide 20 MG Tab (OWN SUPPLY) PO SCH (07:52)
[2019-11-29] MEDS: Melatonin 3 MG Tab PO SCH (19:53)
[2019-11-29] MEDS: Gabapentin 300 MG Cap (OWN SUPPLY) PO SCH (19:53)
[2019-11-29] MEDS: ROPINIROLE 0.5 MG PO SCH (19:54)
[2019-11-29] MEDS: WARFARIN 5 MG PO SCH (19:54)
[2019-11-30] MEDS: Sertraline 100 MG Tab (OWN SUPPLY) PO SCH (08:18)
[2019-11-30] MEDS: Acetaminophen 325 MG Tab PO SCH ×3 (08:18→20:04)
[2019-11-30] MEDS: Metoprolol Succinate 25 MG Tab.ER (OWN SUPPLY) PO SCH (08:18)
[2019-11-30] MEDS: Famotidine 20 MG Tab PO SCH (08:18)
[2019-11-30] MEDS: Vitamin B Complex Tab PO SCH (08:18)
[2019-11-30] MEDS: Multivitamins with Iron/Calcium/Folic Acid/Minerals Tab PO SCH (08:18)
[2019-11-30] MEDS: Furosemide 20 MG Tab (OWN SUPPLY) PO SCH (08:18)
[2019-11-30] MEDS: Omeprazole 20 MG Cap.CR PO SCH (08:18)
[2019-11-30] MEDS: Gabapentin 100 MG Cap (OWN SUPPLY) PO SCH ×2 (08:19→12:20)
[2019-11-30] MEDS: Gabapentin 300 MG Cap (OWN SUPPLY) PO SCH (20:03)
[2019-11-30] MEDS: WARFARIN 5 MG PO SCH (20:03)
[2019-11-30] MEDS: ROPINIROLE 0.5 MG PO SCH (20:03)
[2019-11-30] MEDS: Melatonin 3 MG Tab PO SCH (20:04)
[2019-12-01] MEDS: Multivitamins with Iron/Calcium/Folic Acid/Minerals Tab PO SCH (08:21)
[2019-12-01] MEDS: Metoprolol Succinate 25 MG Tab.ER (OWN SUPPLY) PO SCH (08:21)
[2019-12-01] MEDS: Gabapentin 100 MG Cap (OWN SUPPLY) PO SCH ×2 (08:21→13:12)
[2019-12-01] MEDS: Omeprazole 20 MG Cap.CR PO SCH (08:21)
[2019-12-01] MEDS: Sertraline 100 MG Tab (OWN SUPPLY) PO SCH (08:21)
[2019-12-01] MEDS: Famotidine 20 MG Tab PO SCH (08:21)
[2019-12-01] MEDS: Acetaminophen 325 MG Tab PO SCH ×3 (08:21→20:58)
[2019-12-01] MEDS: Vitamin B Complex Tab PO SCH (08:21)
[2019-12-01] MEDS: Furosemide 20 MG Tab (OWN SUPPLY) PO SCH (08:21)
[2019-12-01] MEDS: Ferrous Sulfate 325 MG Tab PO SCH (08:21)
[2019-12-01] MEDS: WARFARIN 5 MG PO SCH (20:57)
[2019-12-01] MEDS: Gabapentin 300 MG Cap (OWN SUPPLY) PO SCH (20:57)
[2019-12-01] MEDS: ROPINIROLE 0.5 MG PO SCH (20:58)
[2019-12-01] MEDS: Melatonin 3 MG Tab PO SCH (20:59)
[2019-12-02] MEDS: Furosemide 20 MG Tab (OWN SUPPLY) PO SCH (08:29)
[2019-12-02] MEDS: Metoprolol Succinate 25 MG Tab.ER (OWN SUPPLY) PO SCH (08:29)
[2019-12-02] MEDS: Sertraline 100 MG Tab (OWN SUPPLY) PO SCH (08:29)
[2019-12-02] MEDS: Multivitamins with Iron/Calcium/Folic Acid/Minerals Tab PO SCH (08:30)
[2019-12-02] MEDS: Omeprazole 20 MG Cap.CR PO SCH (08:30)
[2019-12-02] MEDS: Acetaminophen 325 MG Tab PO SCH ×3 (08:30→19:48)
[2019-12-02] MEDS: Gabapentin 100 MG Cap (OWN SUPPLY) PO SCH ×2 (08:30→12:21)
[2019-12-02] MEDS: Famotidine 20 MG Tab PO SCH (08:30)
[2019-12-02] MEDS: Vitamin B Complex Tab PO SCH (08:30)
[2019-12-02] MEDS: Melatonin 3 MG Tab PO SCH (19:43)
[2019-12-02] MEDS: ROPINIROLE 0.5 MG PO SCH (19:44)
[2019-12-02] MEDS: WARFARIN 5 MG PO SCH (19:46)
[2019-12-02] MEDS: Gabapentin 300 MG Cap (OWN SUPPLY) PO SCH (19:47)
[2019-12-02] MEDS: Calcium Carbonate 750 MG Tab.Chew PO PRN (19:48)
[2019-12-03] MEDS: Gabapentin 100 MG Cap (OWN SUPPLY) PO SCH ×2 (07:41→12:23)
[2019-12-03] MEDS: Sertraline 100 MG Tab (OWN SUPPLY) PO SCH (07:41)
[2019-12-03] MEDS: Furosemide 20 MG Tab (OWN SUPPLY) PO SCH (07:41)
[2019-12-03] MEDS: Metoprolol Succinate 25 MG Tab.ER (OWN SUPPLY) PO SCH (07:41)
[2019-12-03] MEDS: Acetaminophen 325 MG Tab PO SCH ×3 (07:42→19:49)
[2019-12-03] MEDS: Famotidine 20 MG Tab PO SCH (07:42)
[2019-12-03] MEDS: Omeprazole 20 MG Cap.CR PO SCH (07:42)
[2019-12-03] MEDS: Ferrous Sulfate 325 MG Tab PO SCH (07:42)
[2019-12-03] MEDS: Multivitamins with Iron/Calcium/Folic Acid/Minerals Tab PO SCH (07:42)
[2019-12-03] MEDS: Vitamin B Complex Tab PO SCH (07:42)
[2019-12-03] MEDS: Gabapentin 300 MG Cap (OWN SUPPLY) PO SCH (19:47)
[2019-12-03] MEDS: WARFARIN 5 MG PO SCH (19:47)
[2019-12-03] MEDS: ROPINIROLE 0.5 MG PO SCH (19:47)
[2019-12-03] MEDS: Melatonin 3 MG Tab PO SCH (19:49)
[2019-12-04] MEDS: Acetaminophen 325 MG Tab PO SCH ×3 (08:31→19:45)
[2019-12-04] MEDS: Omeprazole 20 MG Cap.CR PO SCH (08:31)
[2019-12-04] MEDS: Famotidine 20 MG Tab PO SCH (08:32)
[2019-12-04] MEDS: Multivitamins with Iron/Calcium/Folic Acid/Minerals Tab PO SCH (08:32)
[2019-12-04] MEDS: Vitamin B Complex Tab PO SCH (08:32)
[2019-12-04] MEDS: Metoprolol Succinate 25 MG Tab.ER (OWN SUPPLY) PO SCH (08:33)
[2019-12-04] MEDS: Furosemide 20 MG Tab (OWN SUPPLY) PO SCH (08:33)
[2019-12-04] MEDS: Gabapentin 100 MG Cap (OWN SUPPLY) PO SCH ×2 (08:34→13:55)
[2019-12-04] MEDS: Sertraline 100 MG Tab (OWN SUPPLY) PO SCH (08:34)
[2019-12-04] MEDS: Calcium Carbonate 750 MG Tab.Chew PO PRN (08:35)
[2019-12-04] MEDS: ROPINIROLE 0.5 MG PO SCH (19:44)
[2019-12-04] MEDS: Gabapentin 300 MG Cap (OWN SUPPLY) PO SCH (19:44)
[2019-12-04] MEDS: Melatonin 3 MG Tab PO SCH (19:45)
[2019-12-04] MEDS: WARFARIN 5 MG PO SCH (19:45)
[2019-12-05] MEDS: Metoprolol Succinate 25 MG Tab.ER (OWN SUPPLY) PO SCH (07:53)
[2019-12-05] MEDS: Ferrous Sulfate 325 MG Tab PO SCH (07:54)
[2019-12-05] MEDS: Vitamin B Complex Tab PO SCH (07:54)
[2019-12-05] MEDS: Multivitamins with Iron/Calcium/Folic Acid/Minerals Tab PO SCH (07:54)
[2019-12-05] MEDS: Omeprazole 20 MG Cap.CR PO SCH (07:54)
[2019-12-05] MEDS: Furosemide 20 MG Tab (OWN SUPPLY) PO SCH (07:54)
[2019-12-05] MEDS: Sertraline 100 MG Tab (OWN SUPPLY) PO SCH (07:54)
[2019-12-05] MEDS: Gabapentin 100 MG Cap (OWN SUPPLY) PO SCH ×2 (07:54→12:31)
[2019-12-05] MEDS: Famotidine 20 MG Tab PO SCH (07:54)
[2019-12-05] MEDS: Acetaminophen 325 MG Tab PO SCH ×3 (07:55→19:40)
[2019-12-05] MEDS: Gabapentin 300 MG Cap (OWN SUPPLY) PO SCH (19:38)
[2019-12-05] MEDS: WARFARIN 5 MG PO SCH (19:38)
[2019-12-05] MEDS: Melatonin 3 MG Tab PO SCH (19:39)
[2019-12-05] MEDS: ROPINIROLE 0.5 MG PO SCH (19:39)
[2019-12-06] MEDS: Vitamin B Complex Tab PO SCH (08:17)
[2019-12-06] MEDS: Acetaminophen 325 MG Tab PO SCH ×3 (08:17→20:37)
[2019-12-06] MEDS: Famotidine 20 MG Tab PO SCH (08:17)
[2019-12-06] MEDS: Omeprazole 20 MG Cap.CR PO SCH (08:17)
[2019-12-06] MEDS: Metoprolol Succinate 25 MG Tab.ER (OWN SUPPLY) PO SCH (08:18)
[2019-12-06] MEDS: Sertraline 100 MG Tab (OWN SUPPLY) PO SCH (08:18)
[2019-12-06] MEDS: Gabapentin 100 MG Cap (OWN SUPPLY) PO SCH ×2 (08:19→13:21)
[2019-12-06] MEDS: Furosemide 20 MG Tab (OWN SUPPLY) PO SCH (08:19)
[2019-12-06] MEDS: Multivitamins with Iron/Calcium/Folic Acid/Minerals Tab PO SCH (08:21)
[2019-12-06] MEDS: ROPINIROLE 0.5 MG PO SCH (20:36)
[2019-12-06] MEDS: Gabapentin 300 MG Cap (OWN SUPPLY) PO SCH (20:36)
[2019-12-06] MEDS: Melatonin 3 MG Tab PO SCH (20:37)
[2019-12-06] MEDS: WARFARIN 5 MG PO SCH (20:38)
[2019-12-07] MEDS: Vitamin B Complex Tab PO SCH (07:59)
[2019-12-07] MEDS: Omeprazole 20 MG Cap.CR PO SCH (07:59)
[2019-12-07] MEDS: Acetaminophen 325 MG Tab PO SCH ×3 (07:59→20:10)
[2019-12-07] MEDS: Gabapentin 100 MG Cap (OWN SUPPLY) PO SCH ×2 (07:59→13:25)
[2019-12-07] MEDS: Sertraline 100 MG Tab (OWN SUPPLY) PO SCH (07:59)
[2019-12-07] MEDS: Ferrous Sulfate 325 MG Tab PO SCH (07:59)
[2019-12-07] MEDS: Multivitamins with Iron/Calcium/Folic Acid/Minerals Tab PO SCH (07:59)
[2019-12-07] MEDS: Furosemide 20 MG Tab (OWN SUPPLY) PO SCH (07:59)
[2019-12-07] MEDS: Metoprolol Succinate 25 MG Tab.ER (OWN SUPPLY) PO SCH (07:59)
[2019-12-07] MEDS: Famotidine 20 MG Tab PO SCH (07:59)
[2019-12-07] MEDS: Melatonin 3 MG Tab PO SCH (20:09)
[2019-12-07] MEDS: ROPINIROLE 0.5 MG PO SCH (20:09)
[2019-12-07] MEDS: Gabapentin 300 MG Cap (OWN SUPPLY) PO SCH (20:09)
[2019-12-07] MEDS: WARFARIN 5 MG PO SCH (20:10)
[2019-12-08] MEDS: Gabapentin 100 MG Cap (OWN SUPPLY) PO SCH ×2 (08:20→13:42)
[2019-12-08] MEDS: Metoprolol Succinate 25 MG Tab.ER (OWN SUPPLY) PO SCH (08:20)
[2019-12-08] MEDS: Famotidine 20 MG Tab PO SCH (08:20)
[2019-12-08] MEDS: Acetaminophen 325 MG Tab PO SCH ×3 (08:20→19:33)
[2019-12-08] MEDS: Vitamin B Complex Tab PO SCH (08:20)
[2019-12-08] MEDS: Furosemide 20 MG Tab (OWN SUPPLY) PO SCH (08:20)
[2019-12-08] MEDS: Multivitamins with Iron/Calcium/Folic Acid/Minerals Tab PO SCH (08:20)
[2019-12-08] MEDS: Sertraline 100 MG Tab (OWN SUPPLY) PO SCH (08:20)
[2019-12-08] MEDS: Omeprazole 20 MG Cap.CR PO SCH (08:20)
[2019-12-08] MEDS: Gabapentin 300 MG Cap (OWN SUPPLY) PO SCH (19:33)
[2019-12-08] MEDS: Melatonin 3 MG Tab PO SCH (19:33)
[2019-12-08] MEDS: ROPINIROLE 0.5 MG PO SCH (19:33)
[2019-12-08] MEDS: WARFARIN 5 MG PO SCH (19:33)
[2019-12-09] MEDS: Metoprolol Succinate 25 MG Tab.ER (OWN SUPPLY) PO SCH (08:05)
[2019-12-09] MEDS: Gabapentin 100 MG Cap (OWN SUPPLY) PO SCH ×2 (08:05→12:20)
[2019-12-09] MEDS: Sertraline 100 MG Tab (OWN SUPPLY) PO SCH (08:05)
[2019-12-09] MEDS: Omeprazole 20 MG Cap.CR PO SCH (08:06)
[2019-12-09] MEDS: Famotidine 20 MG Tab PO SCH (08:06)
[2019-12-09] MEDS: Vitamin B Complex Tab PO SCH (08:06)
[2019-12-09] MEDS: Ferrous Sulfate 325 MG Tab PO SCH (08:06)
[2019-12-09] MEDS: Furosemide 20 MG Tab (OWN SUPPLY) PO SCH (08:06)
[2019-12-09] MEDS: Acetaminophen 325 MG Tab PO SCH ×3 (08:07→20:32)
[2019-12-09] MEDS: Multivitamins with Iron/Calcium/Folic Acid/Minerals Tab PO SCH (08:07)
[2019-12-09 13:00] LABS: ANION GAP 9.9 mmol/L (10-20)
--- NOTE | 2019-12-09 13:27 | CR ---
[id number] RAD/RAD Chest PA or AP 1V EXAM: RAD Chest PA or AP 1V INDICATION: SHORT OF BREATH. COMPARISON: May 02, 2019. DISCUSSION: Cardiomegaly and central vascular congestion, similar to the prior examination. No infiltrate, effusion, pneumothorax, or edema. IMPRESSION: As above. Jose D Haynes MD 12/09/19 [id number] Thank you for allowing us to participate in the care of your patient.
[2019-12-09] MEDS ORDERED: Iopamidol 612 MG/ML 100 ML Bottle IVPUSH ONE (16:00)
--- NOTE | 2019-12-09 18:46 | CT ---
[id number] CT/CT Chest W IV EXAM: CT Chest W IV CLINICAL DATA: LYMPHOCYTOSIS, THYROID MASS,LUNG NODULE,BREAST MASS. COMPARISON: May 08, 2019. Radiograph from today. FINDINGS: LUNGS: No change in appearance of 18 mm groundglass nodular opacity in the right upper lobe compared to the prior examination. No new pulmonary nodules or masses. No pneumonia, effusion, edema, or pneumothorax. HEART AND GREAT VESSELS: Unchanged from the prior examination. MEDIASTINUM AND LYMPHATICS: Stable appearance of left thyroid lobe mass compared to the prior examination. Asymmetric enlargement of the right submandibular gland compared to the left. Findings are nonspecific. This is similar compared to the prior examination. UPPER ABDOMINAL ORGANS: Gallbladder has been resected. BONES: Unchanged from the prior examination. Soft tissues: Again seen is a soft tissue mass in the breast measuring 14 x 12 x 19 mm compared to 13 x 10 x 16 mm previously. Margins are irregular, best seen on sagittal series 4 images 113-114. IMPRESSION: Slight interval enlargement of the right breast mass compared to prior examination. Appearance and enlargement over the imaging interval suggests underlying neoplasm. Diagnostic mammogram and ultrasound is recommended if not already performed. Stable right upper lobe groundglass nodular opacity compared to the prior examination. No new nodules. Stable left thyroid lobe mass. Other findings are described above. Jose D Haynes MD 12/09/19 [id number] Thank you for allowing us to participate in the care of your patient.
[2019-12-09] MEDS: Gabapentin 300 MG Cap (OWN SUPPLY) PO SCH (20:30)
[2019-12-09] MEDS: WARFARIN 5 MG PO SCH (20:31)
[2019-12-09] MEDS: ROPINIROLE 0.5 MG PO SCH (20:31)
[2019-12-09] MEDS: Melatonin 3 MG Tab PO SCH (20:32)
[2019-12-10] MEDS: Gabapentin 100 MG Cap (OWN SUPPLY) PO SCH ×2 (08:40→12:15)
[2019-12-10] MEDS: Furosemide 20 MG Tab (OWN SUPPLY) PO SCH (08:40)
[2019-12-10] MEDS: Metoprolol Succinate 25 MG Tab.ER (OWN SUPPLY) PO SCH (08:40)
[2019-12-10] MEDS: Acetaminophen 325 MG Tab PO SCH ×3 (08:42→19:49)
[2019-12-10] MEDS: Vitamin B Complex Tab PO SCH (08:42)
[2019-12-10] MEDS: Famotidine 20 MG Tab PO SCH (08:42)
[2019-12-10] MEDS: Multivitamins with Iron/Calcium/Folic Acid/Minerals Tab PO SCH (08:42)
[2019-12-10] MEDS: Omeprazole 20 MG Cap.CR PO SCH (08:42)
[2019-12-10] MEDS: Sertraline 100 MG Tab (OWN SUPPLY) PO SCH (08:42)
--- NOTE | 2019-12-10 10:32 | PCM.PN ---
- General Info Date of Service: 12/09/19 Admission Dx/Problem (Free Text): Nursing informed about some continued chronic issues. Legs give out at times, gets played out easily. No angina. VSS. Wt is stable. Some chronic edema. Labs and CXR largely unchanged from previous. CT shows stable lung and thyroid mass. Breast mass has increased slightly past 6mo - ? neoplasm. Failure to thrive likely related to age and decondition, consult PT. Nothing else acute seen by labs or imaging. 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 Will ask surgeon here if he could do excisional biopsy. If not would have to discuss with her whether she'd want to go to [place] to see breast clinic. - Patient Data Vitals - Most Recent: Last Vital Signs Temp 36.1 C 12/10/19 08:42 Pulse 80 12/10/19 08:40 Resp 22 H 11/29/19 06:00 BP 129/49 L 12/10/19 08:40 Pulse Ox 90 L 11/28/19 08:45 Weight - Most Recent: 89.811 kg I&O - Last 24 Hours: Intake & Output 12/09/19 12/10/19 12/10/19 22:59 06:59 14:59 Intake Total 140 0 Balance 140 0 Lab Results Last 24 Hours: Laboratory Results - last 24 hr 12/09/19 12/09/19 Range/Units 12:22 12:22 WBC 11.2 H (4.0-10.0) x10^3/uL RBC 4.10 (4.00-5.50) x10^6/uL Hgb 12.4 (12.0-16.0) g/dL Hct 39.6 (33.0-47.0) % MCV 96.6 H D (78.0-93.0) fL MCH 30.2 (26.0-32.0) pg MCHC 31.3 L (32.0-36.0) g/dL RDW Coeff of Tiffanie 15.3 H (10.0-15.0) % Plt Count 202 (130-400) x10^3/uL Add Manual Diff Yes Neutrophils % (Manual) 42 L (50-80) % Lymphocytes % (Manual) 50 (25-50) % Monocytes % (Manual) 6 (2-11) % Eosinophils % (Manual) 2 (0-4) % Nucleated RBCs 2 (0-5) /100WBC Platelet Estimate Adequate Anisocytosis 1+ slight H Sodium 145 (136-145) mmol/L Potassium 3.9 (3.5-5.1) mmol/L Chloride 105 (98-107) mmol/L Carbon Dioxide 34 H (21-32) mmol/L Anion Gap 9.9 L (10-20) mmol/L BUN 21 H (7-18) mg/dL Creatinine 1.3 H (0.55-1.02) mg/dL Est Cr Clr Drug Dosing 26.82 mL/min Estimated GFR (MDRD) 39 Glucose 139 H (74-106) mg/dL Calcium 8.9 (8.5-10.1) mg/dL Corrected Calcium 9.70 (8.5-10.1) mg/dL Total Bilirubin 0.4 (0.2-1.0) mg/dL AST 19 (15-37) U/L ALT 18 (14-59) U/L Alkaline Phosphatase 98 (46-116) U/L NT-Pro-B Natriuret Pep 576 H (<=450) pg/mL Total Protein 6.0 L (6.4-8.2) g/dL Albumin 3.0 L (3.4-5.0) g/dL Globulin 3.0 Albumin/Globulin Ratio 1.00 TSH, Ultra Sensitive 1.520 (0.358-3.74) uIU/mL Med Orders - Current: Current Medications Acetaminophen (Tylenol) 650 mg PO TID@0800,1300,2000 [facility] Last Admin: 12/10/19 08:42 Dose: 650 mg Documented by: Calcium Carbonate/Glycine (Tums Extra Strength) 750 mg PO TID PRN PRN Reason: Dyspepsia Last Admin: 12/04/19 08:35 Dose: 750 mg Documented by: Docusate Sodium (Colace) 100 mg PO DAILY PRN PRN Reason: Constipation Famotidine (Pepcid) 20 mg PO DAILY [facility] Last Admin: 12/10/19 08:42 Dose: 20 mg Documented by: Ferrous Sulfate (Ferrous Sulfate) 325 mg PO Q48H [facility] Last Admin: 12/09/19 08:06 Dose: 325 mg Documented by: Furosemide (Lasix) 20 mg PO DAILY [facility] Last Admin: 12/10/19 08:40 Dose: 20 mg Documented by: Gabapentin (Neurontin) 100 mg PO BID@0800,1300 [facility] Last Admin: 12/10/19 08:40 Dose: 100 mg Documented by: Gabapentin (Neurontin) 300 mg PO BEDTIME [facility] Last Admin: 12/09/19 20:30 Dose: 300 mg Documented by: Loperamide HCl (Imodium) 2 mg PO Q12H PRN PRN Reason: Diarrhea Melatonin (Melatonin) 6 mg PO BEDTIME [facility] Last Admin: 12/09/19 20:32 Dose: 6 mg Documented by: Metoprolol Succinate (Toprol Xl) 25 mg PO DAILY [facility] Last Admin: 12/10/19 08:40 Dose: 25 mg Documented by: Miconazole (Desenex 2%) 0 gm TOP BID PRN PRN Reason: RASH UNDER BILATERAL BREASTS Multivitamins/Minerals (Thera M Plus) 1 tab PO DAILY [facility] Last Admin: 12/10/19 08:42 Dose: 1 tab Documented by: Nitroglycerin (Nitrostat) 0.4 mg SL Q5M PRN PRN Reason: Chest Pain Omeprazole (Omeprazole) 20 mg PO DAILY [facility] Last Admin: 12/10/19 08:42 Dose: 20 mg Documented by: Pharmacy Consult (Consult To Pharmacy) 1 each .XX ASDIRECTED [facility] Polyethylene Glycol (Miralax) 17 gm PO DAILY PRN PRN Reason: Constipation Ropinirole HCl (Requip) 0.5 mg PO BEDTIME [facility] Last Admin: 12/09/19 20:31 Dose: 0.5 mg Documented by: Senna/Docusate Sodium (Senna Plus) 1 tab PO DAILY PRN PRN Reason: Constipation Sertraline HCl (Zoloft) 100 mg PO DAILY [facility] Last Admin: 12/10/19 08:42 Dose: 100 mg Documented by: Vitamin B Complex (Vitamin B Complex) 1 each PO DAILY [facility] Last Admin: 12/10/19 08:42 Dose: 1 each Documented by: Warfarin Sodium (Coumadin) 2.5 mg PO Th@1999 [facility] Last Admin: 12/04/19 19:45 Dose: 2.5 mg Documented by: Warfarin Sodium (Coumadin) 5 mg PO SuMoTuWeFrSa@1999 [facility] Last Admin: 12/09/19 20:31 Dose: 5 mg Documented by: Discontinued Medications Iopamidol (Isovue-300 (61%)) 100 ml IVPUSH ONETIME ONE Stop: 12/09/19 16:01 Last Admin: 12/09/19 18:21 Dose: 100 ml Documented by: Warfarin Sodium (Coumadin) 2.5 mg PO MoTh@1999 [facility] Last Admin: 11/13/19 19:23 Dose: 2.5 mg Documented by: Warfarin Sodium (Coumadin) 5 mg PO SuTuWeFrSa@1999 [facility] Last Admin: 11/14/19 19:57 Dose: 5 mg Documented by: Sepsis Event Note - Evaluation Sepsis Screening Result: No Definite Risk - Focused Exam Vital Signs: Vital Signs Temp Temp Pulse BP 12/10/19 08:42 36.1 C 12/10/19 08:40 80 129/49 L 12/10/19 06:00 35.9 C L Date Exam was Performed: 12/10/19 Time Exam was Performed: 10:30 - Problem List Review Problem List Initiated/Reviewed/Updated: Yes - My Orders Last 24 Hours: My Active Orders 12/09/19 12:01 PT Evaluation and Treatment [CONS] Routine 12/12/19 07:00 INR,PT,PROTHROMBIN TIME [COAG] Q28D 01/09/20 07:00 INR,PT,PROTHROMBIN TIME [COAG] Q28D 02/06/20 07:00 INR,PT,PROTHROMBIN TIME [COAG] Q28D 03/05/20 07:00 INR,PT,PROTHROMBIN TIME [COAG] Q28D
[2019-12-10] MEDS: Melatonin 3 MG Tab PO SCH (19:49)
[2019-12-10] MEDS: Gabapentin 300 MG Cap (OWN SUPPLY) PO SCH (19:49)
[2019-12-10] MEDS: WARFARIN 5 MG PO SCH (19:50)
[2019-12-10] MEDS: ROPINIROLE 0.5 MG PO SCH (19:50)
[2019-12-11] MEDS: Furosemide 20 MG Tab (OWN SUPPLY) PO SCH (08:03)
[2019-12-11] MEDS: Metoprolol Succinate 25 MG Tab.ER (OWN SUPPLY) PO SCH (08:03)
[2019-12-11] MEDS: Sertraline 100 MG Tab (OWN SUPPLY) PO SCH (08:03)
[2019-12-11] MEDS: Multivitamins with Iron/Calcium/Folic Acid/Minerals Tab PO SCH (08:04)
[2019-12-11] MEDS: Ferrous Sulfate 325 MG Tab PO SCH (08:04)
[2019-12-11] MEDS: Vitamin B Complex Tab PO SCH (08:04)
[2019-12-11] MEDS: Omeprazole 20 MG Cap.CR PO SCH (08:04)
[2019-12-11] MEDS: Famotidine 20 MG Tab PO SCH (08:04)
[2019-12-11] MEDS: Acetaminophen 325 MG Tab PO SCH ×3 (08:05→21:03)
[2019-12-11] MEDS: Gabapentin 100 MG Cap (OWN SUPPLY) PO SCH ×2 (08:06→12:22)
[2019-12-11] MEDS: Gabapentin 300 MG Cap (OWN SUPPLY) PO SCH (21:00)
[2019-12-11] MEDS: ROPINIROLE 0.5 MG PO SCH (21:01)
[2019-12-11] MEDS: WARFARIN 5 MG PO SCH (21:02)
[2019-12-11] MEDS: Melatonin 3 MG Tab PO SCH (21:03)
[2019-12-11] MEDS: Calcium Carbonate 750 MG Tab.Chew PO PRN (21:05)
[2019-12-12] MEDS: Metoprolol Succinate 25 MG Tab.ER (OWN SUPPLY) PO SCH (08:06)
[2019-12-12] MEDS: Gabapentin 100 MG Cap (OWN SUPPLY) PO SCH ×2 (08:06→12:47)
[2019-12-12] MEDS: Vitamin B Complex Tab PO SCH (08:06)
[2019-12-12] MEDS: Omeprazole 20 MG Cap.CR PO SCH (08:06)
[2019-12-12] MEDS: Furosemide 20 MG Tab (OWN SUPPLY) PO SCH (08:06)
[2019-12-12] MEDS: Sertraline 100 MG Tab (OWN SUPPLY) PO SCH (08:06)
[2019-12-12] MEDS: Multivitamins with Iron/Calcium/Folic Acid/Minerals Tab PO SCH (08:06)
[2019-12-12] MEDS: Acetaminophen 325 MG Tab PO SCH ×3 (08:07→22:04)
[2019-12-12] MEDS: Famotidine 20 MG Tab PO SCH (08:07)
[2019-12-12] MEDS: Gabapentin 300 MG Cap (OWN SUPPLY) PO SCH (22:03)
[2019-12-12] MEDS: ROPINIROLE 0.5 MG PO SCH (22:03)
[2019-12-12] MEDS: WARFARIN 5 MG PO SCH (22:04)
[2019-12-12] MEDS: Melatonin 3 MG Tab PO SCH (22:04)
[2019-12-13] MEDS: Gabapentin 100 MG Cap (OWN SUPPLY) PO SCH ×2 (08:54→12:09)
[2019-12-13] MEDS: Metoprolol Succinate 25 MG Tab.ER (OWN SUPPLY) PO SCH (08:55)
[2019-12-13] MEDS: Sertraline 100 MG Tab (OWN SUPPLY) PO SCH (08:55)
[2019-12-13] MEDS: Acetaminophen 325 MG Tab PO SCH ×3 (08:56→21:52)
[2019-12-13] MEDS: Famotidine 20 MG Tab PO SCH (08:56)
[2019-12-13] MEDS: Omeprazole 20 MG Cap.CR PO SCH (08:56)
[2019-12-13] MEDS: Multivitamins with Iron/Calcium/Folic Acid/Minerals Tab PO SCH (08:56)
[2019-12-13] MEDS: Ferrous Sulfate 325 MG Tab PO SCH (08:56)
[2019-12-13] MEDS: Vitamin B Complex Tab PO SCH (08:56)
[2019-12-13] MEDS: Furosemide 20 MG Tab (OWN SUPPLY) PO SCH (08:57)
[2019-12-13] MEDS: Melatonin 3 MG Tab PO SCH (21:51)
[2019-12-13] MEDS: WARFARIN 5 MG PO SCH (21:53)
[2019-12-13] MEDS: Gabapentin 300 MG Cap (OWN SUPPLY) PO SCH (21:53)
[2019-12-13] MEDS: ROPINIROLE 0.5 MG PO SCH (21:53)
[2019-12-14] MEDS: Gabapentin 100 MG Cap (OWN SUPPLY) PO SCH ×2 (08:09→12:35)
[2019-12-14] MEDS: Metoprolol Succinate 25 MG Tab.ER (OWN SUPPLY) PO SCH (08:10)
[2019-12-14] MEDS: Famotidine 20 MG Tab PO SCH (08:10)
[2019-12-14] MEDS: Multivitamins with Iron/Calcium/Folic Acid/Minerals Tab PO SCH (08:10)
[2019-12-14] MEDS: Vitamin B Complex Tab PO SCH (08:10)
[2019-12-14] MEDS: Sertraline 100 MG Tab (OWN SUPPLY) PO SCH (08:10)
[2019-12-14] MEDS: Omeprazole 20 MG Cap.CR PO SCH (08:10)
[2019-12-14] MEDS: Acetaminophen 325 MG Tab PO SCH ×3 (08:10→20:30)
[2019-12-14] MEDS: Furosemide 20 MG Tab (OWN SUPPLY) PO SCH (08:10)
[2019-12-14] MEDS: Gabapentin 300 MG Cap (OWN SUPPLY) PO SCH (20:28)
[2019-12-14] MEDS: WARFARIN 5 MG PO SCH (20:29)
[2019-12-14] MEDS: ROPINIROLE 0.5 MG PO SCH (20:29)
[2019-12-14] MEDS: Melatonin 3 MG Tab PO SCH (20:29)
[2019-12-15] MEDS: Famotidine 20 MG Tab PO SCH (09:49)
[2019-12-15] MEDS: Omeprazole 20 MG Cap.CR PO SCH (09:49)
[2019-12-15] MEDS: Gabapentin 100 MG Cap (OWN SUPPLY) PO SCH ×2 (09:49→12:40)
[2019-12-15] MEDS: Multivitamins with Iron/Calcium/Folic Acid/Minerals Tab PO SCH (09:49)
[2019-12-15] MEDS: Vitamin B Complex Tab PO SCH (09:49)
[2019-12-15] MEDS: Acetaminophen 325 MG Tab PO SCH ×3 (09:49→20:00)
[2019-12-15] MEDS: Furosemide 20 MG Tab (OWN SUPPLY) PO SCH (09:50)
[2019-12-15] MEDS: Sertraline 100 MG Tab (OWN SUPPLY) PO SCH (09:50)
[2019-12-15] MEDS: Ferrous Sulfate 325 MG Tab PO SCH (09:50)
[2019-12-15] MEDS: Metoprolol Succinate 25 MG Tab.ER (OWN SUPPLY) PO SCH (12:44)
[2019-12-15] MEDS: Melatonin 3 MG Tab PO SCH (20:01)
[2019-12-15] MEDS: ROPINIROLE 0.5 MG PO SCH (20:01)
[2019-12-15] MEDS: WARFARIN 5 MG PO SCH (20:02)
[2019-12-15] MEDS: Gabapentin 300 MG Cap (OWN SUPPLY) PO SCH (20:02)
[2019-12-16] MEDS: Famotidine 20 MG Tab PO SCH (08:11)
[2019-12-16] MEDS: Multivitamins with Iron/Calcium/Folic Acid/Minerals Tab PO SCH (08:11)
[2019-12-16] MEDS: Omeprazole 20 MG Cap.CR PO SCH (08:11)
[2019-12-16] MEDS: Gabapentin 100 MG Cap (OWN SUPPLY) PO SCH ×2 (08:11→13:32)
[2019-12-16] MEDS: Furosemide 20 MG Tab (OWN SUPPLY) PO SCH (08:11)
[2019-12-16] MEDS: Acetaminophen 325 MG Tab PO SCH ×3 (08:11→19:59)
[2019-12-16] MEDS: Metoprolol Succinate 25 MG Tab.ER (OWN SUPPLY) PO SCH (08:11)
[2019-12-16] MEDS: Sertraline 100 MG Tab (OWN SUPPLY) PO SCH (08:11)
[2019-12-16] MEDS: Vitamin B Complex Tab PO SCH (08:11)
[2019-12-16] MEDS: Gabapentin 300 MG Cap (OWN SUPPLY) PO SCH (19:57)
[2019-12-16] MEDS: WARFARIN 5 MG PO SCH (19:58)
[2019-12-16] MEDS: ROPINIROLE 0.5 MG PO SCH (19:58)
[2019-12-16] MEDS: Melatonin 3 MG Tab PO SCH (19:59)
[2019-12-17] MEDS: Metoprolol Succinate 25 MG Tab.ER (OWN SUPPLY) PO SCH (07:59)
[2019-12-17] MEDS: Gabapentin 100 MG Cap (OWN SUPPLY) PO SCH ×2 (07:59→14:01)
[2019-12-17] MEDS: Acetaminophen 325 MG Tab PO SCH ×3 (07:59→19:45)
[2019-12-17] MEDS: Multivitamins with Iron/Calcium/Folic Acid/Minerals Tab PO SCH (07:59)
[2019-12-17] MEDS: Vitamin B Complex Tab PO SCH (07:59)
[2019-12-17] MEDS: Sertraline 100 MG Tab (OWN SUPPLY) PO SCH (07:59)
[2019-12-17] MEDS: Ferrous Sulfate 325 MG Tab PO SCH (07:59)
[2019-12-17] MEDS: Furosemide 20 MG Tab (OWN SUPPLY) PO SCH (07:59)
[2019-12-17] MEDS: Omeprazole 20 MG Cap.CR PO SCH (07:59)
[2019-12-17] MEDS: Famotidine 20 MG Tab PO SCH (07:59)
[2019-12-17] MEDS: Loperamide 2 MG Cap PO PRN (10:16)
[2019-12-17] MEDS: ROPINIROLE 0.5 MG PO SCH (19:44)
[2019-12-17] MEDS: Gabapentin 300 MG Cap (OWN SUPPLY) PO SCH (19:44)
[2019-12-17] MEDS: WARFARIN 5 MG PO SCH (19:44)
[2019-12-17] MEDS: Melatonin 3 MG Tab PO SCH (19:45)
[2019-12-18] MEDS: Metoprolol Succinate 25 MG Tab.ER (OWN SUPPLY) PO SCH (07:26)
[2019-12-18] MEDS: Furosemide 20 MG Tab (OWN SUPPLY) PO SCH (07:26)
[2019-12-18] MEDS: Sertraline 100 MG Tab (OWN SUPPLY) PO SCH (07:26)
[2019-12-18] MEDS: Famotidine 20 MG Tab PO SCH (07:27)
[2019-12-18] MEDS: Vitamin B Complex Tab PO SCH (07:27)
[2019-12-18] MEDS: Gabapentin 100 MG Cap (OWN SUPPLY) PO SCH ×2 (07:27→13:59)
[2019-12-18] MEDS: Omeprazole 20 MG Cap.CR PO SCH (07:27)
[2019-12-18] MEDS: Acetaminophen 325 MG Tab PO SCH ×3 (07:27→19:24)
[2019-12-18] MEDS: Multivitamins with Iron/Calcium/Folic Acid/Minerals Tab PO SCH (07:27)
[2019-12-18] MEDS: WARFARIN 5 MG PO SCH (19:23)
[2019-12-18] MEDS: Gabapentin 300 MG Cap (OWN SUPPLY) PO SCH (19:23)
[2019-12-18] MEDS: ROPINIROLE 0.5 MG PO SCH (19:23)
[2019-12-18] MEDS: Melatonin 3 MG Tab PO SCH (19:24)
[2019-12-19] MEDS: Vitamin B Complex Tab PO SCH (07:39)
[2019-12-19] MEDS: Omeprazole 20 MG Cap.CR PO SCH (07:39)
[2019-12-19] MEDS: Famotidine 20 MG Tab PO SCH (07:39)
[2019-12-19] MEDS: Ferrous Sulfate 325 MG Tab PO SCH (07:39)
[2019-12-19] MEDS: Acetaminophen 325 MG Tab PO SCH ×3 (07:39→19:19)
[2019-12-19] MEDS: Gabapentin 100 MG Cap (OWN SUPPLY) PO SCH ×2 (07:39→12:24)
[2019-12-19] MEDS: Multivitamins with Iron/Calcium/Folic Acid/Minerals Tab PO SCH (07:39)
[2019-12-19] MEDS: Sertraline 100 MG Tab (OWN SUPPLY) PO SCH (07:40)
[2019-12-19] MEDS: Furosemide 20 MG Tab (OWN SUPPLY) PO SCH (07:40)
[2019-12-19] MEDS: Metoprolol Succinate 25 MG Tab.ER (OWN SUPPLY) PO SCH (07:40)
[2019-12-19] MEDS: Gabapentin 300 MG Cap (OWN SUPPLY) PO SCH (19:19)
[2019-12-19] MEDS: ROPINIROLE 0.5 MG PO SCH (19:19)
[2019-12-19] MEDS: Melatonin 3 MG Tab PO SCH (19:19)
[2019-12-19] MEDS: WARFARIN 5 MG PO SCH (19:19)
[2019-12-20] MEDS: Furosemide 20 MG Tab (OWN SUPPLY) PO SCH (07:23)
[2019-12-20] MEDS: Omeprazole 20 MG Cap.CR PO SCH (07:24)
[2019-12-20] MEDS: Metoprolol Succinate 25 MG Tab.ER (OWN SUPPLY) PO SCH (07:24)
[2019-12-20] MEDS: Acetaminophen 325 MG Tab PO SCH ×3 (07:24→19:48)
[2019-12-20] MEDS: Multivitamins with Iron/Calcium/Folic Acid/Minerals Tab PO SCH (07:24)
[2019-12-20] MEDS: Sertraline 100 MG Tab (OWN SUPPLY) PO SCH (07:24)
[2019-12-20] MEDS: Famotidine 20 MG Tab PO SCH (07:24)
[2019-12-20] MEDS: Vitamin B Complex Tab PO SCH (07:24)
[2019-12-20] MEDS: Gabapentin 100 MG Cap (OWN SUPPLY) PO SCH ×2 (07:26→13:04)
[2019-12-20] MEDS: Gabapentin 300 MG Cap (OWN SUPPLY) PO SCH (19:47)
[2019-12-20] MEDS: ROPINIROLE 0.5 MG PO SCH (19:47)
[2019-12-20] MEDS: WARFARIN 5 MG PO SCH (19:47)
[2019-12-20] MEDS: Melatonin 3 MG Tab PO SCH (19:48)
[2019-12-21] MEDS: Metoprolol Succinate 25 MG Tab.ER (OWN SUPPLY) PO SCH (07:30)
[2019-12-21] MEDS: Sertraline 100 MG Tab (OWN SUPPLY) PO SCH (07:30)
[2019-12-21] MEDS: Multivitamins with Iron/Calcium/Folic Acid/Minerals Tab PO SCH (07:30)
[2019-12-21] MEDS: Vitamin B Complex Tab PO SCH (07:30)
[2019-12-21] MEDS: Gabapentin 100 MG Cap (OWN SUPPLY) PO SCH ×2 (07:30→12:56)
[2019-12-21] MEDS: Furosemide 20 MG Tab (OWN SUPPLY) PO SCH (07:30)
[2019-12-21] MEDS: Ferrous Sulfate 325 MG Tab PO SCH (07:30)
[2019-12-21] MEDS: Famotidine 20 MG Tab PO SCH (07:30)
[2019-12-21] MEDS: Acetaminophen 325 MG Tab PO SCH ×3 (07:30→19:43)
[2019-12-21] MEDS: Omeprazole 20 MG Cap.CR PO SCH (07:31)
[2019-12-21] MEDS: ROPINIROLE 0.5 MG PO SCH (19:43)
[2019-12-21] MEDS: Melatonin 3 MG Tab PO SCH (19:43)
[2019-12-21] MEDS: Gabapentin 300 MG Cap (OWN SUPPLY) PO SCH (19:44)
[2019-12-21] MEDS: WARFARIN 5 MG PO SCH (19:44)
[2019-12-22] MEDS: Omeprazole 20 MG Cap.CR PO SCH (07:43)
[2019-12-22] MEDS: Sertraline 100 MG Tab (OWN SUPPLY) PO SCH (07:43)
[2019-12-22] MEDS: Metoprolol Succinate 25 MG Tab.ER (OWN SUPPLY) PO SCH (07:43)
[2019-12-22] MEDS: Furosemide 20 MG Tab (OWN SUPPLY) PO SCH (07:43)
[2019-12-22] MEDS: Acetaminophen 325 MG Tab PO SCH ×3 (07:43→19:38)
[2019-12-22] MEDS: Gabapentin 100 MG Cap (OWN SUPPLY) PO SCH ×2 (07:43→12:18)
[2019-12-22] MEDS: Multivitamins with Iron/Calcium/Folic Acid/Minerals Tab PO SCH (07:43)
[2019-12-22] MEDS: Vitamin B Complex Tab PO SCH (07:43)
[2019-12-22] MEDS: Famotidine 20 MG Tab PO SCH (07:43)
[2019-12-22] MEDS: Gabapentin 300 MG Cap (OWN SUPPLY) PO SCH (19:36)
[2019-12-22] MEDS: ROPINIROLE 0.5 MG PO SCH (19:37)
[2019-12-22] MEDS: WARFARIN 5 MG PO SCH (19:37)
[2019-12-22] MEDS: Melatonin 3 MG Tab PO SCH (19:38)
[2019-12-23] MEDS: Acetaminophen 325 MG Tab PO SCH ×3 (07:33→19:30)
[2019-12-23] MEDS: Omeprazole 20 MG Cap.CR PO SCH (07:33)
[2019-12-23] MEDS: Famotidine 20 MG Tab PO SCH (07:33)
[2019-12-23] MEDS: Gabapentin 100 MG Cap (OWN SUPPLY) PO SCH ×2 (07:33→14:13)
[2019-12-23] MEDS: Vitamin B Complex Tab PO SCH (07:33)
[2019-12-23] MEDS: Furosemide 20 MG Tab (OWN SUPPLY) PO SCH (07:33)
[2019-12-23] MEDS: Ferrous Sulfate 325 MG Tab PO SCH (07:33)
[2019-12-23] MEDS: Multivitamins with Iron/Calcium/Folic Acid/Minerals Tab PO SCH (07:33)
[2019-12-23] MEDS: Sertraline 100 MG Tab (OWN SUPPLY) PO SCH (07:33)
[2019-12-23] MEDS: Metoprolol Succinate 25 MG Tab.ER (OWN SUPPLY) PO SCH (07:34)
[2019-12-23] MEDS: Gabapentin 300 MG Cap (OWN SUPPLY) PO SCH (19:30)
[2019-12-23] MEDS: ROPINIROLE 0.5 MG PO SCH (19:31)
[2019-12-23] MEDS: WARFARIN 5 MG PO SCH (19:31)
[2019-12-23] MEDS: Melatonin 3 MG Tab PO SCH (19:31)
[2019-12-24] MEDS: Metoprolol Succinate 25 MG Tab.ER (OWN SUPPLY) PO SCH (08:31)
[2019-12-24] MEDS: Omeprazole 20 MG Cap.CR PO SCH (08:32)
[2019-12-24] MEDS: Vitamin B Complex Tab PO SCH (08:32)
[2019-12-24] MEDS: Multivitamins with Iron/Calcium/Folic Acid/Minerals Tab PO SCH (08:32)
[2019-12-24] MEDS: Furosemide 20 MG Tab (OWN SUPPLY) PO SCH (08:32)
[2019-12-24] MEDS: Gabapentin 100 MG Cap (OWN SUPPLY) PO SCH ×2 (08:32→12:08)
[2019-12-24] MEDS: Famotidine 20 MG Tab PO SCH (08:32)
[2019-12-24] MEDS: Acetaminophen 325 MG Tab PO SCH ×3 (08:32→19:56)
[2019-12-24] MEDS: Sertraline 100 MG Tab (OWN SUPPLY) PO SCH (08:32)
[2019-12-24] MEDS: Gabapentin 300 MG Cap (OWN SUPPLY) PO SCH (19:54)
[2019-12-24] MEDS: Melatonin 3 MG Tab PO SCH (19:55)
[2019-12-24] MEDS: WARFARIN 5 MG PO SCH (19:55)
[2019-12-24] MEDS: ROPINIROLE 0.5 MG PO SCH (19:56)
[2019-12-25] MEDS: Furosemide 20 MG Tab (OWN SUPPLY) PO SCH (08:26)
[2019-12-25] MEDS: Metoprolol Succinate 25 MG Tab.ER (OWN SUPPLY) PO SCH (08:26)
[2019-12-25] MEDS: Gabapentin 100 MG Cap (OWN SUPPLY) PO SCH ×2 (08:26→12:38)
[2019-12-25] MEDS: Sertraline 100 MG Tab (OWN SUPPLY) PO SCH (08:26)
[2019-12-25] MEDS: Famotidine 20 MG Tab PO SCH (08:27)
[2019-12-25] MEDS: Multivitamins with Iron/Calcium/Folic Acid/Minerals Tab PO SCH (08:27)
[2019-12-25] MEDS: Acetaminophen 325 MG Tab PO SCH ×3 (08:27→19:38)
[2019-12-25] MEDS: Ferrous Sulfate 325 MG Tab PO SCH (08:27)
[2019-12-25] MEDS: Omeprazole 20 MG Cap.CR PO SCH (08:27)
[2019-12-25] MEDS: Vitamin B Complex Tab PO SCH (08:27)
[2019-12-25] MEDS: WARFARIN 5 MG PO SCH (19:37)
[2019-12-25] MEDS: Melatonin 3 MG Tab PO SCH (19:38)
[2019-12-25] MEDS: ROPINIROLE 0.5 MG PO SCH (19:38)
[2019-12-25] MEDS: Gabapentin 300 MG Cap (OWN SUPPLY) PO SCH (19:39)
[2019-12-26] MEDS: Calcium Carbonate 750 MG Tab.Chew PO PRN ×3 (10:01→20:39)
[2019-12-26] MEDS: Gabapentin 100 MG Cap (OWN SUPPLY) PO SCH ×2 (10:01→13:39)
[2019-12-26] MEDS: Metoprolol Succinate 25 MG Tab.ER (OWN SUPPLY) PO SCH (10:01)
[2019-12-26] MEDS: Sertraline 100 MG Tab (OWN SUPPLY) PO SCH (10:01)
[2019-12-26] MEDS: Acetaminophen 325 MG Tab PO SCH ×3 (10:03→20:40)
[2019-12-26] MEDS: Furosemide 20 MG Tab (OWN SUPPLY) PO SCH (10:03)
[2019-12-26] MEDS: Multivitamins with Iron/Calcium/Folic Acid/Minerals Tab PO SCH (10:04)
[2019-12-26] MEDS: Famotidine 20 MG Tab PO SCH (10:04)
[2019-12-26] MEDS: Vitamin B Complex Tab PO SCH (10:04)
[2019-12-26] MEDS: Omeprazole 20 MG Cap.CR PO SCH (10:05)
[2019-12-26] MEDS: Melatonin 3 MG Tab PO SCH (20:40)
[2019-12-26] MEDS: Gabapentin 300 MG Cap (OWN SUPPLY) PO SCH (20:41)
[2019-12-26] MEDS: ROPINIROLE 0.5 MG PO SCH (20:42)
[2019-12-26] MEDS: WARFARIN 5 MG PO SCH (20:42)
[2019-12-27] MEDS: Gabapentin 100 MG Cap (OWN SUPPLY) PO SCH ×2 (09:16→12:49)
[2019-12-27] MEDS: Furosemide 20 MG Tab (OWN SUPPLY) PO SCH (09:16)
[2019-12-27] MEDS: Calcium Carbonate 750 MG Tab.Chew PO PRN (09:16)
[2019-12-27] MEDS: Sertraline 100 MG Tab (OWN SUPPLY) PO SCH (09:17)
[2019-12-27] MEDS: Metoprolol Succinate 25 MG Tab.ER (OWN SUPPLY) PO SCH (09:19)
[2019-12-27] MEDS: Vitamin B Complex Tab PO SCH (09:20)
[2019-12-27] MEDS: Multivitamins with Iron/Calcium/Folic Acid/Minerals Tab PO SCH (09:20)
[2019-12-27] MEDS: Ferrous Sulfate 325 MG Tab PO SCH (09:20)
[2019-12-27] MEDS: Famotidine 20 MG Tab PO SCH (09:20)
[2019-12-27] MEDS: Omeprazole 20 MG Cap.CR PO SCH (09:20)
[2019-12-27] MEDS: Acetaminophen 325 MG Tab PO SCH ×3 (09:20→20:38)
[2019-12-27] MEDS: Melatonin 3 MG Tab PO SCH (20:37)
[2019-12-27] MEDS: Gabapentin 300 MG Cap (OWN SUPPLY) PO SCH (20:38)
[2019-12-27] MEDS: ROPINIROLE 0.5 MG PO SCH (20:39)
[2019-12-28] MEDS: Gabapentin 100 MG Cap (OWN SUPPLY) PO SCH ×2 (09:07→13:41)
[2019-12-28] MEDS: Calcium Carbonate 750 MG Tab.Chew PO PRN ×2 (09:08→20:01)
[2019-12-28] MEDS: Multivitamins with Iron/Calcium/Folic Acid/Minerals Tab PO SCH (09:09)
[2019-12-28] MEDS: Vitamin B Complex Tab PO SCH (09:09)
[2019-12-28] MEDS: Sertraline 100 MG Tab (OWN SUPPLY) PO SCH (09:09)
[2019-12-28] MEDS: Furosemide 20 MG Tab (OWN SUPPLY) PO SCH (09:09)
[2019-12-28] MEDS: Famotidine 20 MG Tab PO SCH (09:09)
[2019-12-28] MEDS: Omeprazole 20 MG Cap.CR PO SCH (09:09)
[2019-12-28] MEDS: Metoprolol Succinate 25 MG Tab.ER (OWN SUPPLY) PO SCH (09:34)
[2019-12-28] MEDS: Acetaminophen 325 MG Tab PO SCH ×3 (09:34→19:57)
[2019-12-28] MEDS: Gabapentin 300 MG Cap (OWN SUPPLY) PO SCH (19:58)
[2019-12-28] MEDS: Melatonin 3 MG Tab PO SCH (19:58)
[2019-12-28] MEDS: ROPINIROLE 0.5 MG PO SCH (19:59)
[2019-12-29] MEDS: Calcium Carbonate 750 MG Tab.Chew PO PRN (09:02)
[2019-12-29] MEDS: Sertraline 100 MG Tab (OWN SUPPLY) PO SCH (09:03)
[2019-12-29] MEDS: Furosemide 20 MG Tab (OWN SUPPLY) PO SCH (09:03)
[2019-12-29] MEDS: Metoprolol Succinate 25 MG Tab.ER (OWN SUPPLY) PO SCH (09:03)
[2019-12-29] MEDS: Gabapentin 100 MG Cap (OWN SUPPLY) PO SCH ×2 (09:03→13:56)
[2019-12-29] MEDS: Famotidine 20 MG Tab PO SCH (09:04)
[2019-12-29] MEDS: Multivitamins with Iron/Calcium/Folic Acid/Minerals Tab PO SCH (09:04)
[2019-12-29] MEDS: Vitamin B Complex Tab PO SCH (09:04)
[2019-12-29] MEDS: Omeprazole 20 MG Cap.CR PO SCH (09:04)
[2019-12-29] MEDS: Acetaminophen 325 MG Tab PO SCH ×3 (09:05→19:40)
[2019-12-29] MEDS: Ferrous Sulfate 325 MG Tab PO SCH (09:05)
[2019-12-29] MEDS: Gabapentin 300 MG Cap (OWN SUPPLY) PO SCH (19:38)
[2019-12-29] MEDS: ROPINIROLE 0.5 MG PO SCH (19:38)
[2019-12-29] MEDS: Melatonin 3 MG Tab PO SCH (19:39)
[2019-12-30] MEDS: Calcium Carbonate 750 MG Tab.Chew PO PRN ×2 (07:55→13:26)
[2019-12-30] MEDS: Metoprolol Succinate 25 MG Tab.ER (OWN SUPPLY) PO SCH (07:55)
[2019-12-30] MEDS: Gabapentin 100 MG Cap (OWN SUPPLY) PO SCH ×2 (07:55→13:25)
[2019-12-30] MEDS: Sertraline 100 MG Tab (OWN SUPPLY) PO SCH (07:56)
[2019-12-30] MEDS: Furosemide 20 MG Tab (OWN SUPPLY) PO SCH (07:56)
[2019-12-30] MEDS: Vitamin B Complex Tab PO SCH (07:57)
[2019-12-30] MEDS: Acetaminophen 325 MG Tab PO SCH ×3 (07:57→19:54)
[2019-12-30] MEDS: Famotidine 20 MG Tab PO SCH (07:57)
[2019-12-30] MEDS: Multivitamins with Iron/Calcium/Folic Acid/Minerals Tab PO SCH (07:57)
[2019-12-30] MEDS: Omeprazole 20 MG Cap.CR PO SCH (07:57)
[2019-12-30] MEDS ORDERED: Phytonadione 100 MCG Tab PO PRN (09:00)
[2019-12-30] MEDS: ROPINIROLE 0.5 MG PO SCH (19:54)
[2019-12-30] MEDS: Gabapentin 300 MG Cap (OWN SUPPLY) PO SCH (19:54)
[2019-12-30] MEDS: Melatonin 3 MG Tab PO SCH (19:54)
[2019-12-31] MEDS: Loperamide 2 MG Cap PO PRN (05:30)
[2019-12-31] MEDS: Sertraline 100 MG Tab (OWN SUPPLY) PO SCH ×2 (05:30→07:58)
[2019-12-31] MEDS: Acetaminophen 325 MG Tab PO SCH ×4 (05:30→19:42)
[2019-12-31] MEDS: Furosemide 20 MG Tab (OWN SUPPLY) PO SCH ×2 (05:30→07:57)
[2019-12-31] MEDS: Metoprolol Succinate 25 MG Tab.ER (OWN SUPPLY) PO SCH ×2 (05:31→07:57)
[2019-12-31] MEDS: Gabapentin 100 MG Cap (OWN SUPPLY) PO SCH ×3 (05:33→14:05)
[2019-12-31] MEDS: Omeprazole 20 MG Cap.CR PO SCH (07:57)
[2019-12-31] MEDS: Ferrous Sulfate 325 MG Tab PO SCH (07:57)
[2019-12-31] MEDS: Multivitamins with Iron/Calcium/Folic Acid/Minerals Tab PO SCH (07:57)
[2019-12-31] MEDS: Famotidine 20 MG Tab PO SCH (07:57)
[2019-12-31] MEDS: Vitamin B Complex Tab PO SCH (07:58)
[2019-12-31] MEDS: Melatonin 3 MG Tab PO SCH (19:40)
[2019-12-31] MEDS: Gabapentin 300 MG Cap (OWN SUPPLY) PO SCH (19:40)
[2019-12-31] MEDS: ROPINIROLE 0.5 MG PO SCH (19:41)
[2019-12-31] MEDS: WARFARIN 5 MG PO SCH ×2 (19:45→19:53)
[2020-01-01] MEDS: Furosemide 20 MG Tab (OWN SUPPLY) PO SCH (08:12)
[2020-01-01] MEDS: Metoprolol Succinate 25 MG Tab.ER (OWN SUPPLY) PO SCH (08:12)
[2020-01-01] MEDS: Gabapentin 100 MG Cap (OWN SUPPLY) PO SCH ×2 (08:12→15:07)
[2020-01-01] MEDS: Famotidine 20 MG Tab PO SCH (08:13)
[2020-01-01] MEDS: Acetaminophen 325 MG Tab PO SCH ×3 (08:13→20:00)
[2020-01-01] MEDS: Sertraline 100 MG Tab (OWN SUPPLY) PO SCH (08:13)
[2020-01-01] MEDS: Omeprazole 20 MG Cap.CR PO SCH (08:13)
[2020-01-01] MEDS: Multivitamins with Iron/Calcium/Folic Acid/Minerals Tab PO SCH (08:13)
[2020-01-01] MEDS: Vitamin B Complex Tab PO SCH (08:13)
[2020-01-01] MEDS: ROPINIROLE 0.5 MG PO SCH (19:59)
[2020-01-01] MEDS: Gabapentin 300 MG Cap (OWN SUPPLY) PO SCH (19:59)
[2020-01-01] MEDS: Melatonin 3 MG Tab PO SCH (19:59)
[2020-01-01] MEDS: WARFARIN 5 MG PO SCH (19:59)
[2020-01-02] MEDS: Gabapentin 100 MG Cap (OWN SUPPLY) PO SCH ×2 (08:07→14:15)
[2020-01-02] MEDS: Furosemide 20 MG Tab (OWN SUPPLY) PO SCH (08:07)
[2020-01-02] MEDS: Sertraline 100 MG Tab (OWN SUPPLY) PO SCH (08:07)
[2020-01-02] MEDS: Vitamin B Complex Tab PO SCH (08:07)
[2020-01-02] MEDS: Acetaminophen 325 MG Tab PO SCH ×3 (08:07→21:01)
[2020-01-02] MEDS: Ferrous Sulfate 325 MG Tab PO SCH (08:08)
[2020-01-02] MEDS: Famotidine 20 MG Tab PO SCH (08:08)
[2020-01-02] MEDS: Multivitamins with Iron/Calcium/Folic Acid/Minerals Tab PO SCH (08:08)
[2020-01-02] MEDS: Metoprolol Succinate 25 MG Tab.ER (OWN SUPPLY) PO SCH (08:08)
[2020-01-02] MEDS: Omeprazole 20 MG Cap.CR PO SCH (08:08)
[2020-01-02] MEDS: ROPINIROLE 0.5 MG PO SCH (21:01)
[2020-01-02] MEDS: WARFARIN 5 MG PO SCH (21:01)
[2020-01-02] MEDS: Melatonin 3 MG Tab PO SCH (21:01)
[2020-01-02] MEDS: Gabapentin 300 MG Cap (OWN SUPPLY) PO SCH (21:02)
[2020-01-02] MEDS ORDERED: Albuterol/Ipratropium 3.0-0.5 MG/3 ML Neb Soln ONE (21:30)
[2020-01-02] MEDS ORDERED: Albuterol 0.042% 1.25 MG/3 ML Neb Soln NEB ONE (21:30)
[2020-01-02] MEDS ORDERED: Isosorbide Mononitrate 30 MG Tab.ER PO SCH (21:45)
[2020-01-02] MEDS ORDERED: Albuterol 0.042% 1.25 MG/3 ML Neb Soln NEB STA (21:46)
[2020-01-02] MEDS ORDERED: Isosorbide Mononitrate 30 MG Tab.ER PO STA (21:47)
--- NOTE | 2020-01-02 21:54 | PCM.SN.2 ---
- Free Text/Narrative Note: CC: chest pain I was called to see pt because of an episode of chest pain. Pt has a hx of HTN, diastolic heart failure. She says she has had 2 heart attacks but do not see CAD on her problem list. She has prn NTG on her med list and has not received this in "a while". Pt states the pain lasted about 5 minutes, went away with NTG times one and felt like her heart attack although not as severe. Pt states she is feeling back to normal. Nurse's note indicate she had just gotten back from commode and was anxious at time of attack. Other pertinent hx in includes breast biopsy right just 3 days ago, O2 dependent CO2, DVT Most recent INR was 1.2 but coumadin was adjusted upwards 2 days ago OBJ: Pt in NAD, awake and alert bp 160/60 heart rate 90, o2 sat 96% on 2 Liters O2 Cor s1s2 normal w/o rubs,murmurs or gallops Lung Scattered dry rales and wheezes + Chest wall tenderness which pt states reproduced her pain EKG: Heart rate 91, 1st degree AV block, ovv PVC, small q in lead III, no acute ischemic changes IMP: 1. short episode chest pain: unclear if it was angina or chest wall Plan: pt confirmed she wishes code level 2 and does not want invasive treatment for CAD so will monitor for 24 hours start long acting nitrate 2. Wheezing and rales- trial 1/2 dose albuterol; check bnp, BMP and INR in AM to assess for CHF and ensure she is therapeutic for DVT .
[2020-01-03] MEDS: Vitamin B Complex Tab PO SCH (08:36)
[2020-01-03] MEDS: Multivitamins with Iron/Calcium/Folic Acid/Minerals Tab PO SCH (08:36)
[2020-01-03] MEDS: Acetaminophen 325 MG Tab PO SCH ×3 (08:36→19:59)
[2020-01-03] MEDS: Famotidine 20 MG Tab PO SCH (08:36)
[2020-01-03] MEDS: Gabapentin 100 MG Cap (OWN SUPPLY) PO SCH ×2 (08:37→12:39)
[2020-01-03] MEDS: Furosemide 20 MG Tab (OWN SUPPLY) PO SCH (08:37)
[2020-01-03] MEDS: Omeprazole 20 MG Cap.CR PO SCH (08:37)
[2020-01-03] MEDS: Sertraline 100 MG Tab (OWN SUPPLY) PO SCH (08:37)
[2020-01-03 08:39] LABS: ANION GAP 4.1 mmol/L (10-20)
[2020-01-03] MEDS: Metoprolol Succinate 25 MG Tab.ER (OWN SUPPLY) PO SCH (08:39)
[2020-01-03] MEDS: Isosorbide Mononitrate 30 MG Tab.ER PO SCH (08:40)
--- NOTE | 2020-01-03 10:09 | PCM.SN.2 ---
- Free Text/Narrative Note: f/up 1. Chest pain: no recurrence, monitor showed occ pvc 2.SOB: pt states breathing is better OBJ: BP 108 systolic Lungs : no wheezes, still +basilar rales Cor s1s2 normal w/o rubs,murmurs or gallops LABS: BNP 1039, cr 1.0 INR 1.0 IMP: CAD: No recurrence of pain, continue IMDUR, d/c monitor Mild CHF_ additional dose of lasix 20 if BP alows DVT: Anticoagulation inadequate, will dose with 10 mg today and tomorrow then resume usual dose, check INR sunday
[2020-01-03] MEDS ORDERED: Furosemide 20 MG Tab PO ONE (14:00)
[2020-01-03] MEDS: Melatonin 3 MG Tab PO SCH (19:58)
[2020-01-03] MEDS: Warfarin 5 MG Tab PO SCH (19:58)
[2020-01-03] MEDS: Gabapentin 300 MG Cap (OWN SUPPLY) PO SCH (19:58)
[2020-01-03] MEDS: ROPINIROLE 0.5 MG PO SCH (19:59)
[2020-01-04] MEDS: Multivitamins with Iron/Calcium/Folic Acid/Minerals Tab PO SCH (09:11)
[2020-01-04] MEDS: Isosorbide Mononitrate 30 MG Tab.ER PO SCH (09:11)
[2020-01-04] MEDS: Vitamin B Complex Tab PO SCH (09:11)
[2020-01-04] MEDS: Omeprazole 20 MG Cap.CR PO SCH (09:12)
[2020-01-04] MEDS: Ferrous Sulfate 325 MG Tab PO SCH (09:12)
[2020-01-04] MEDS: Acetaminophen 325 MG Tab PO SCH ×3 (09:12→19:30)
[2020-01-04] MEDS: Famotidine 20 MG Tab PO SCH (09:12)
[2020-01-04] MEDS: Furosemide 20 MG Tab (OWN SUPPLY) PO SCH (09:13)
[2020-01-04] MEDS: Sertraline 100 MG Tab (OWN SUPPLY) PO SCH (09:13)
[2020-01-04] MEDS: Metoprolol Succinate 25 MG Tab.ER (OWN SUPPLY) PO SCH (09:14)
[2020-01-04] MEDS: Gabapentin 100 MG Cap (OWN SUPPLY) PO SCH ×2 (09:14→14:00)
[2020-01-04] MEDS: Melatonin 3 MG Tab PO SCH (19:29)
[2020-01-04] MEDS: Gabapentin 300 MG Cap (OWN SUPPLY) PO SCH (19:29)
[2020-01-04] MEDS: ROPINIROLE 0.5 MG PO SCH (19:29)
[2020-01-04] MEDS: Warfarin 5 MG Tab PO SCH (19:30)
[2020-01-05] MEDS: Famotidine 20 MG Tab PO SCH (08:11)
[2020-01-05] MEDS: Vitamin B Complex Tab PO SCH (08:11)
[2020-01-05] MEDS: Multivitamins with Iron/Calcium/Folic Acid/Minerals Tab PO SCH (08:11)
[2020-01-05] MEDS: Sertraline 100 MG Tab (OWN SUPPLY) PO SCH (08:12)
[2020-01-05] MEDS: Metoprolol Succinate 25 MG Tab.ER (OWN SUPPLY) PO SCH (08:12)
[2020-01-05] MEDS: Isosorbide Mononitrate 30 MG Tab.ER PO SCH (08:12)
[2020-01-05] MEDS: Furosemide 20 MG Tab (OWN SUPPLY) PO SCH (08:12)
[2020-01-05] MEDS: Gabapentin 100 MG Cap (OWN SUPPLY) PO SCH ×2 (08:12→13:39)
[2020-01-05] MEDS: Omeprazole 20 MG Cap.CR PO SCH (08:12)
[2020-01-05] MEDS: Acetaminophen 325 MG Tab PO SCH ×3 (08:12→20:14)
[2020-01-05] MEDS: ROPINIROLE 0.5 MG PO SCH (20:11)
[2020-01-05] MEDS: WARFARIN 5 MG PO SCH (20:11)
[2020-01-05] MEDS: Gabapentin 300 MG Cap (OWN SUPPLY) PO SCH (20:11)
[2020-01-05] MEDS: Melatonin 3 MG Tab PO SCH (20:14)
[2020-01-06] MEDS: Furosemide 20 MG Tab (OWN SUPPLY) PO SCH (08:18)
[2020-01-06] MEDS: Gabapentin 100 MG Cap (OWN SUPPLY) PO SCH ×2 (08:18→14:30)
[2020-01-06] MEDS: Vitamin B Complex Tab PO SCH (08:18)
[2020-01-06] MEDS: Acetaminophen 325 MG Tab PO SCH ×3 (08:18→19:46)
[2020-01-06] MEDS: Multivitamins with Iron/Calcium/Folic Acid/Minerals Tab PO SCH (08:18)
[2020-01-06] MEDS: Ferrous Sulfate 325 MG Tab PO SCH (08:18)
[2020-01-06] MEDS: Omeprazole 20 MG Cap.CR PO SCH (08:18)
[2020-01-06] MEDS: Sertraline 100 MG Tab (OWN SUPPLY) PO SCH (08:18)
[2020-01-06] MEDS: Famotidine 20 MG Tab PO SCH (08:18)
[2020-01-06] MEDS: ISOSORBIDE MONONITRATE 30 MG PO SCH (08:20)
[2020-01-06] MEDS: Metoprolol Succinate 25 MG Tab.ER (OWN SUPPLY) PO SCH (08:21)
[2020-01-06] MEDS: Calcium Carbonate 750 MG Tab.Chew PO PRN (19:45)
[2020-01-06] MEDS: Gabapentin 300 MG Cap (OWN SUPPLY) PO SCH (19:46)
[2020-01-06] MEDS: Melatonin 3 MG Tab PO SCH (19:46)
[2020-01-06] MEDS: WARFARIN 5 MG PO SCH (19:47)
[2020-01-06] MEDS: ROPINIROLE 0.5 MG PO SCH (19:48)
[2020-01-07] MEDS: Multivitamins with Iron/Calcium/Folic Acid/Minerals Tab PO SCH (08:49)
[2020-01-07] MEDS: Sertraline 100 MG Tab (OWN SUPPLY) PO SCH (08:49)
[2020-01-07] MEDS: Acetaminophen 325 MG Tab PO SCH ×3 (08:49→19:53)
[2020-01-07] MEDS: Vitamin B Complex Tab PO SCH (08:49)
[2020-01-07] MEDS: Famotidine 20 MG Tab PO SCH (08:49)
[2020-01-07] MEDS: Omeprazole 20 MG Cap.CR PO SCH (08:49)
[2020-01-07] MEDS: Furosemide 20 MG Tab (OWN SUPPLY) PO SCH (08:49)
[2020-01-07] MEDS: Gabapentin 100 MG Cap (OWN SUPPLY) PO SCH ×2 (08:49→13:48)
[2020-01-07] MEDS: Metoprolol Succinate 25 MG Tab.ER (OWN SUPPLY) PO SCH (08:50)
[2020-01-07] MEDS: ISOSORBIDE MONONITRATE 30 MG PO SCH (08:50)
[2020-01-07] MEDS: Gabapentin 300 MG Cap (OWN SUPPLY) PO SCH (19:50)
[2020-01-07] MEDS: Melatonin 3 MG Tab PO SCH (19:53)
[2020-01-07] MEDS: Calcium Carbonate 750 MG Tab.Chew PO PRN (19:53)
[2020-01-07] MEDS: WARFARIN 5 MG PO SCH (19:54)
[2020-01-07] MEDS: ROPINIROLE 0.5 MG PO SCH (19:54)
[2020-01-08] MEDS: Metoprolol Succinate 25 MG Tab.ER (OWN SUPPLY) PO SCH ×2 (04:53→10:15)
[2020-01-08] MEDS: Loperamide 2 MG Cap PO PRN (04:57)
[2020-01-08] MEDS: Gabapentin 100 MG Cap (OWN SUPPLY) PO SCH ×3 (05:00→15:37)
[2020-01-08] MEDS: Sertraline 100 MG Tab (OWN SUPPLY) PO SCH (15:36)
[2020-01-08] MEDS: ISOSORBIDE MONONITRATE 30 MG PO SCH (15:36)
[2020-01-08] MEDS: Furosemide 20 MG Tab (OWN SUPPLY) PO SCH (15:37)
[2020-01-08] MEDS: Acetaminophen 325 MG Tab PO SCH ×3 (15:40→19:59)
[2020-01-08] MEDS: Omeprazole 20 MG Cap.CR PO SCH (15:40)
[2020-01-08] MEDS: Vitamin B Complex Tab PO SCH (15:40)
[2020-01-08] MEDS: Ferrous Sulfate 325 MG Tab PO SCH (15:40)
[2020-01-08] MEDS: Famotidine 20 MG Tab PO SCH (15:40)
[2020-01-08] MEDS: Multivitamins with Iron/Calcium/Folic Acid/Minerals Tab PO SCH (15:40)
[2020-01-08] MEDS: Calcium Carbonate 750 MG Tab.Chew PO PRN (15:47)
[2020-01-08] MEDS: Melatonin 3 MG Tab PO SCH (19:59)
[2020-01-08] MEDS: ROPINIROLE 0.5 MG PO SCH (19:59)
[2020-01-08] MEDS: Gabapentin 300 MG Cap (OWN SUPPLY) PO SCH (20:00)
[2020-01-08] MEDS: WARFARIN 5 MG PO SCH (20:00)
[2020-01-09] MEDS: Multivitamins with Iron/Calcium/Folic Acid/Minerals Tab PO SCH (08:36)
[2020-01-09] MEDS: Omeprazole 20 MG Cap.CR PO SCH (08:36)
[2020-01-09] MEDS: Famotidine 20 MG Tab PO SCH (08:36)
[2020-01-09] MEDS: Acetaminophen 325 MG Tab PO SCH ×3 (08:36→19:46)
[2020-01-09] MEDS: Vitamin B Complex Tab PO SCH (08:36)
[2020-01-09] MEDS: Gabapentin 100 MG Cap (OWN SUPPLY) PO SCH ×2 (08:37→15:33)
[2020-01-09] MEDS: Furosemide 20 MG Tab (OWN SUPPLY) PO SCH (08:38)
[2020-01-09] MEDS: Sertraline 100 MG Tab (OWN SUPPLY) PO SCH (08:39)
[2020-01-09] MEDS: Metoprolol Succinate 25 MG Tab.ER (OWN SUPPLY) PO SCH (08:39)
[2020-01-09] MEDS: ISOSORBIDE MONONITRATE 30 MG PO SCH (08:40)
[2020-01-09] MEDS: Calcium Carbonate 750 MG Tab.Chew PO PRN ×2 (08:41→15:34)
[2020-01-09] MEDS: Gabapentin 300 MG Cap (OWN SUPPLY) PO SCH (19:46)
[2020-01-09] MEDS: Melatonin 3 MG Tab PO SCH (19:46)
[2020-01-09] MEDS: ROPINIROLE 0.5 MG PO SCH (19:48)
[2020-01-09] MEDS: WARFARIN 5 MG PO SCH (19:48)
[2020-01-10] MEDS: Gabapentin 100 MG Cap (OWN SUPPLY) PO SCH ×2 (08:27→13:08)
[2020-01-10] MEDS: Calcium Carbonate 750 MG Tab.Chew PO PRN ×2 (08:28→13:09)
[2020-01-10] MEDS: ISOSORBIDE MONONITRATE 30 MG PO SCH (08:29)
[2020-01-10] MEDS: Metoprolol Succinate 25 MG Tab.ER (OWN SUPPLY) PO SCH (08:29)
[2020-01-10] MEDS: Famotidine 20 MG Tab PO SCH (08:30)
[2020-01-10] MEDS: Sertraline 100 MG Tab (OWN SUPPLY) PO SCH (08:30)
[2020-01-10] MEDS: Omeprazole 20 MG Cap.CR PO SCH (08:30)
[2020-01-10] MEDS: Furosemide 20 MG Tab (OWN SUPPLY) PO SCH (08:30)
[2020-01-10] MEDS: Multivitamins with Iron/Calcium/Folic Acid/Minerals Tab PO SCH (08:30)
[2020-01-10] MEDS: Acetaminophen 325 MG Tab PO SCH ×3 (08:30→19:46)
[2020-01-10] MEDS: Vitamin B Complex Tab PO SCH (08:30)
[2020-01-10] MEDS: Ferrous Sulfate 325 MG Tab PO SCH (08:30)
[2020-01-10] MEDS: Melatonin 3 MG Tab PO SCH (19:46)
[2020-01-10] MEDS: WARFARIN 5 MG PO SCH (19:48)
[2020-01-10] MEDS: ROPINIROLE 0.5 MG PO SCH (19:48)
[2020-01-10] MEDS: Gabapentin 300 MG Cap (OWN SUPPLY) PO SCH (19:48)
[2020-01-11] MEDS: Gabapentin 100 MG Cap (OWN SUPPLY) PO SCH ×2 (08:40→13:53)
[2020-01-11] MEDS: Calcium Carbonate 750 MG Tab.Chew PO PRN ×2 (08:40→13:54)
[2020-01-11] MEDS: Sertraline 100 MG Tab (OWN SUPPLY) PO SCH (08:41)
[2020-01-11] MEDS: Metoprolol Succinate 25 MG Tab.ER (OWN SUPPLY) PO SCH (08:41)
[2020-01-11] MEDS: ISOSORBIDE MONONITRATE 30 MG PO SCH (08:41)
[2020-01-11] MEDS: Famotidine 20 MG Tab PO SCH (08:42)
[2020-01-11] MEDS: Multivitamins with Iron/Calcium/Folic Acid/Minerals Tab PO SCH (08:42)
[2020-01-11] MEDS: Omeprazole 20 MG Cap.CR PO SCH (08:42)
[2020-01-11] MEDS: Acetaminophen 325 MG Tab PO SCH ×3 (08:42→20:05)
[2020-01-11] MEDS: Furosemide 20 MG Tab (OWN SUPPLY) PO SCH (08:42)
[2020-01-11] MEDS: Vitamin B Complex Tab PO SCH (08:42)
[2020-01-11] MEDS: WARFARIN 5 MG PO SCH (19:58)
[2020-01-11] MEDS: ROPINIROLE 0.5 MG PO SCH (19:59)
[2020-01-11] MEDS: Gabapentin 300 MG Cap (OWN SUPPLY) PO SCH (19:59)
[2020-01-11] MEDS: Melatonin 3 MG Tab PO SCH (20:03)
[2020-01-12] MEDS: Furosemide 20 MG Tab (OWN SUPPLY) PO SCH (08:30)
[2020-01-12] MEDS: Gabapentin 100 MG Cap (OWN SUPPLY) PO SCH ×2 (08:30→13:27)
[2020-01-12] MEDS: Sertraline 100 MG Tab (OWN SUPPLY) PO SCH (08:30)
[2020-01-12] MEDS: Acetaminophen 325 MG Tab PO SCH ×3 (08:30→19:47)
[2020-01-12] MEDS: Ferrous Sulfate 325 MG Tab PO SCH (08:31)
[2020-01-12] MEDS: Multivitamins with Iron/Calcium/Folic Acid/Minerals Tab PO SCH (08:31)
[2020-01-12] MEDS: Famotidine 20 MG Tab PO SCH (08:31)
[2020-01-12] MEDS: Vitamin B Complex Tab PO SCH (08:31)
[2020-01-12] MEDS: ISOSORBIDE MONONITRATE 30 MG PO SCH (08:31)
[2020-01-12] MEDS: Omeprazole 20 MG Cap.CR PO SCH (08:31)
[2020-01-12] MEDS: Metoprolol Succinate 25 MG Tab.ER (OWN SUPPLY) PO SCH (08:31)
[2020-01-12] MEDS: Gabapentin 300 MG Cap (OWN SUPPLY) PO SCH (19:44)
[2020-01-12] MEDS: Melatonin 3 MG Tab PO SCH (19:45)
[2020-01-12] MEDS: ROPINIROLE 0.5 MG PO SCH (19:45)
[2020-01-12] MEDS: WARFARIN 5 MG PO SCH (19:46)
[2020-01-12] MEDS: Calcium Carbonate 750 MG Tab.Chew PO PRN (19:47)
[2020-01-13] MEDS: Furosemide 20 MG Tab (OWN SUPPLY) PO SCH (07:48)
[2020-01-13] MEDS: ISOSORBIDE MONONITRATE 30 MG PO SCH (07:49)
[2020-01-13] MEDS: Multivitamins with Iron/Calcium/Folic Acid/Minerals Tab PO SCH (07:49)
[2020-01-13] MEDS: Gabapentin 100 MG Cap (OWN SUPPLY) PO SCH ×2 (07:49→13:13)
[2020-01-13] MEDS: Sertraline 100 MG Tab (OWN SUPPLY) PO SCH (07:49)
[2020-01-13] MEDS: Vitamin B Complex Tab PO SCH (07:49)
[2020-01-13] MEDS: Metoprolol Succinate 25 MG Tab.ER (OWN SUPPLY) PO SCH (07:49)
[2020-01-13] MEDS: Famotidine 20 MG Tab PO SCH (07:49)
[2020-01-13] MEDS: Omeprazole 20 MG Cap.CR PO SCH (07:50)
[2020-01-13] MEDS: Acetaminophen 325 MG Tab PO SCH ×3 (07:50→19:39)
--- NOTE | 2020-01-13 11:10 | PCM.PN ---
"- General Info Date of Service: 01/13/20 Admission Dx/Problem (Free Text): Assessment / Plan Preoperative clearance History of DVT (deep vein thrombosis) History of deep vein thrombosis of lower extremity CKD (chronic kidney disease) stage 3, GFR 30-59 ml/min ([facility]) Current use of salvage determiner anticoagulation Plan:EKG and labs today Cleared for surgery otherwise- low risk procedure in medium risk patient, main risk factors being age and deconditioning in long-term care patient She's unsure of any marcia CAD hx ProBNP runs 500-1000, likely some degree of diastolic CHF that appears stable Hold warfarin beginning 01.17.20, last dose on 9.4. Check INR on 9.8.If >1.4 could give 1mg Vit K PO prior to procedure on 9.9. After surgery can restart warfarinper surgeon, perhaps same day. I don't see indication to bridge currently. Other meds okto take Resume PT for gait/strength after above surgery No follow-ups on file. HPI / History / ROS Pre-Op Exam Right breast. DR. Sorto. DOS: 01/21/20, lumpectomy of CA w/ sentinel node. Tolerated similar in past w/o comp. On coumadin for DVT hx. 84 year old female with [id number] invasive ductal carcinoma of the right breast, UIQ, ER/ND+ HER2-, g2 Decreased ambulation at baseline, long-term care patient at . Remote smoking hx decades ago. FH non-contributory. Son lives in [place]. Medications MedicationsPriortoVisit Outpatient Medications Prior to Visit Medication Sig Dispense Refill busPIRone (BUSPAR) 5 mg tablet Take 5 mg by mouth 2 times a day ferrous sulfate (65 MG FE PER 325 MG TABLET) 325 mg tablet Take 325 mg by mouth 1 time per day isosorbide mononitrate (IMDUR) 30 mg SR tablet (24 hr) Take 30 mg by mouth 1 time a day in the morning omeprazole (PRILOSEC) 20 mg capsule Take 20 mg by mouth 1 time a day in the morning Multiple Vitamins-Minerals (THERA M PLUS PO) Take 1 tablet by mouth 1 time per day melatonin 3 mg tablet Take 3 mg by mouth every night at bedtime Take two 3mg tablet at bedtime loperamide (IMODIUM) 2 mg capsule Take 2 mg by mouth as needed for diarrhea Take 2 caps after the first loose stool, then 1 cap after each loose stool, but no more than 8 caps per day. sertraline (ZOLOFT) 100 mg tablet Take 100 mg by mouth 1 time per day gabapentin (NEURONTIN) 300 mg capsule TAKE 1 CAPSULE BY MOUTH EVERY NIGHT AT BEDTIME 30 capsule 5 metoprolol succinate (TOPROL XL) 25 mg SR tablet (24 hr) TAKE 1 TABLET (25 MG) BY MOUTH 1 TIME PER DAY 30 tablet 11 JANTOVEN 5 MG tablet TAKE 1 TABLET BY MOUTH ON , , SAT, &SUN. TAKE 1/2 TABLET ON SUN, SUN, AND SUN. (Patient taking differently: Take 5mg PO Sun, Sun, , Sun, Sun, Sat. Take 2.5mg on .) 30 tablet 1 rOPINIRole (REQUIP) 0.5 mg tablet TAKE ONE TABLET EVERY BEDTIME BY MOUTH 30 tablet 11 nitroglycerin (NITROSTAT) 0.4 mg sublingual tablet Dissolve 1 tablet (0.4 mg) under the tongue Every 5 minutes as needed for chest pain 30 tablet 0 gabapentin (NEURONTIN) 100 mg capsule Take 1 capsule in the morning. Take 3 capsules at bedtime (Patient taking differently: Take 100 mg by mouth 2 times a day Take 1 capsule at 0800 and one at 1300.) 180 capsule 3 furosemide (LASIX) 20 mg tablet Take 1 tablet (20 mg) by mouth 1 time per day 30 tablet 11 famotidine (PEPCID AC MAXIMUM STRENGTH) 20 mg tablet Take 1 tablet (20 mg) by mouth 1 time a day as needed for heartburn 30 tablet 11 acetaminophen (TYLENOL) 325 mg tablet Take 2 tablets (650 mg) by mouth 2 times a day (Patient taking differently: Take 650 mg by mouth 3 times a day ) 180 tablet 3 docusate sodium (COLACE) 100 mg capsule Take 1 capsule (100 mg) by mouth 1 time per day 30 capsule 11 polyethylene glycol (MIRALAX) powder Take 1 capful by mouth 1 time a day as needed for constipation calcium carbonate (TUMS EX) 750 MG CHEW Take 1 tablet (750 mg) by mouth 3 times a day as needed senna-docusate sodium (SENOKOT S) 8.6-50 MG TABS Take 1 tablet by mouth 1 time per day Oxygen therapy Inhale 1 L orally May use throughout the day as needed. Wear while sleeping. May increase to 3 L at HS sertraline (ZOLOFT) 100 mg tablet Take 1 tablet (100 mg) by mouth 1 time per day 30 tablet 11 No facility-administered medications prior to visit. Allergies Allergies Allergen Reactions Baclofen Confusion Slurred speech and fatigue Other reaction(s): Confusion Problem List Patient Active Problem List Diagnosis Essential hypertension Osteoporosis Malignant neoplasm of ovary (HCC) Impaired fasting glucose Nontoxic multinodular goiter Chronic diastolic congestive heart failure (HCC) Edema Melanoma of skin (HCC) Other malaise and fatigue Chronic respiratory failure (HCC) GERD (gastroesophageal reflux disease) Anxiety and depression Insomnia Obesity (BMI 30-39.9) Shoulder pain Squamous cell skin cancer CKD (chronic kidney disease) stage 3, GFR 30-59 ml/min (HCC) Gout History of deep vein thrombosis of lower extremity Cataract, secondary - Both Dermatochalasia Posterior vitreous detachment Cognitive impairment Restless legs syndrome Peripheral neuropathy Anemia, iron deficiency Chronic deep vein thrombosis (DVT) of femoral vein of left lower extremity (HCC) Acute deep vein thrombosis (DVT) of femoral vein of right lower extremity (HCC) Malignant neoplasm of right breast, estrogen receptor positive (HCC) Current use of salvage determiner anticoagulation Medical/Surgical/Family/SocialHistory PastMedicalHistory Past Medical History: Diagnosis Date Squamous cell carcinoma PastSurgicalHistory Past Surgical History: Procedure Laterality Date APPENDECTOMY CATARACT EXTRACTION CATARACT W PHACO Right 04/11/07 CATARACT W PHACO Left 05/23/2007 CHOLECYSTECTOMY HYSTERECTOMY US CORE BIOPSY BREAST RT Right 12/31/2019 US CORE BIOPSY BREAST RT 12/31/2019 Humble Funk MD [facility] US BREAST SC YAG CAPSULOTOMY - OU - BOTH EYES Bilateral 02/04/2015 FamilyHistory Family History Problem Relation Age of Onset Chronic Obstructive Pulmonary Disease Father Macular Degeneration Paternal Aunt Cataracts Neg Hx Diabetes Neg Hx Glaucoma Neg Hx SocialHistory Social History Socioeconomic History Marital status: Spouse name: Not on file Number of children: 1 Years of education: Not on file Highest education level: Not on file Occupational History Occupation: retired Tobacco Use Smoking status: Former Smoker Types: Cigarettes Last attempt to quit: 05/14/1973 Years since quittin.6 Smokeless tobacco: Never Used Substance and Sexual Activity Alcohol use: No Drug use: No Social History Narrative , lives in at [facility] has a boyfriend at the [facility]. Son lives locally now. Did live in [place] for a time. Nonsmoker quit in 1973, smoked very little when younger. Occasional alcohol use prior to having children but none now. ROS Review of Systems Constitutional: Negative forfeverand unexpected weight change. Respiratory: Negative forshortness of breath. Wheezing:? Cardiovascular: Negative forchest pain,palpitationsand leg swelling. Gastrointestinal: Negative forblood in stool. Genitourinary: Negative fordysuriaand vaginal bleeding. Neurological: Positive forweakness(geneneralized). Negative forsyncope. Psychiatric/Behavioral: Negative fordysphoric mood. Physical / Results BP 136/74 Pulse 88 Temp 97.1 F (36.2 C) (Tympanic) Wt 86.6 kg (191 lb) SpO2 93% BMI 37.3 kg/m2|| Physical Exam Constitutional: She appearswell-developedand well-nourished. Cardiovascular:Normal rate,regular rhythmand normal heart sounds. Pulmonary/Chest:Effort normaland breath sounds normal. Musculoskeletal: She exhibitsedema. Skin: She isnot diaphoretic. Psychiatric: She has anormal mood and affect. - Patient Data Vitals - Most Recent: Last Vital Signs Temp 36.3 C 01/13/20 06:00 Pulse 68 01/13/20 07:49 Resp 16 01/13/20 06:00 BP 152/74 H 01/13/20 07:49 Pulse Ox 97 01/13/20 06:00 Weight - Most Recent: 86.183 kg I&O - Last 24 Hours: Intake & Output 01/12/20 01/13/20 01/13/20 22:59 06:59 14:59 Intake Total 120 120 Balance 120 120 Med Orders - Current: Current Medications Acetaminophen (Tylenol) 650 mg PO TID@0800,1300,2000 [facility] Last Admin: 01/13/20 07:50 Dose: 650 mg Documented by: Buspirone HCl (Buspar) 5 mg PO BID [facility] Last Admin: 01/13/20 07:49 Dose: 5 mg Documented by: Calcium Carbonate/Glycine (Tums Extra Strength) 750 mg PO TID PRN PRN Reason: Dyspepsia Last Admin: 01/12/20 19:47 Dose: 750 mg Documented by: Docusate Sodium (Colace) 100 mg PO DAILY PRN PRN Reason: Constipation Famotidine (Pepcid) 20 mg PO DAILY [facility] Last Admin: 01/13/20 07:49 Dose: 20 mg Documented by: Ferrous Sulfate (Ferrous Sulfate) 325 mg PO Q48H [facility] Last Admin: 01/12/20 08:31 Dose: 325 mg Documented by: Furosemide (Lasix) 20 mg PO DAILY [facility] Last Admin: 01/13/20 07:48 Dose: 20 mg Documented by: Gabapentin (Neurontin) 100 mg PO BID@0800,1300 [facility] Last Admin: 01/13/20 07:49 Dose: 100 mg Documented by: Gabapentin (Neurontin) 300 mg PO BEDTIME [facility] Last Admin: 01/12/20 19:44 Dose: 300 mg Documented by: Isosorbide Mononitrate (Imdur) 30 mg PO DAILY [facility] Last Admin: 01/13/20 07:49 Dose: 30 mg Documented by: Loperamide HCl (Imodium) 2 mg PO Q12H PRN PRN Reason: Diarrhea Last Admin: 01/08/20 04:57 Dose: 2 mg Documented by: Melatonin (Melatonin) 6 mg PO BEDTIME [facility] Last Admin: 01/12/20 19:45 Dose: 6 mg Documented by: Metoprolol Succinate (Toprol Xl) 25 mg PO DAILY [facility] Last Admin: 01/13/20 07:49 Dose: 25 mg Documented by: Miconazole (Desenex 2%) 0 gm TOP BID PRN PRN Reason: RASH UNDER BILATERAL BREASTS Multivitamins/Minerals (Thera M Plus) 1 tab PO DAILY [facility] Last Admin: 01/13/20 07:49 Dose: 1 tab Documented by: Nitroglycerin (Nitrostat) 0.4 mg SL Q5M PRN PRN Reason: Chest Pain Last Admin: 01/02/20 20:57 Dose: 0.4 mg Documented by: Omeprazole (Omeprazole) 20 mg PO DAILY [facility] Last Admin: 01/13/20 07:50 Dose: 20 mg Documented by: Pharmacy Consult (Consult To Pharmacy) 1 each .XX ASDIRECTED [facility] Polyethylene Glycol (Miralax) 17 gm PO DAILY PRN PRN Reason: Constipation Ropinirole HCl (Requip) 0.5 mg PO BEDTIME [facility] Last Admin: 01/12/20 19:45 Dose: 0.5 mg Documented by: Senna/Docusate Sodium (Senna Plus) 1 tab PO DAILY PRN PRN Reason: Constipation Sertraline HCl (Zoloft) 100 mg PO DAILY [facility] Last Admin: 01/13/20 07:49 Dose: 100 mg Documented by: Vitamin B Complex (Vitamin B Complex) 1 each PO DAILY [facility] Last Admin: 01/13/20 07:49 Dose: 1 each Documented by: Warfarin Sodium (Coumadin) 2.5 mg PO Th@1999 [facility] Last Admin: 01/08/20 20:00 Dose: 2.5 mg Documented by: Warfarin Sodium (Coumadin) 5 mg PO SuMoTuWeFrSa@1999 [facility] Last Admin: 01/12/20 19:46 Dose: 5 mg Documented by: Discontinued Medications Albuterol (Proventil Neb Soln) 1.25 mg NEB ONETIME ONE Stop: 01/02/20 21:31 Last Admin: 01/02/20 22:34 Dose: Not Given Documented by: Albuterol (Proventil Neb Soln) 1.25 mg NEB ONETIME STA Stop: 01/02/20 21:47 Last Admin: 01/02/20 21:40 Dose: 1.25 mg Documented by: Albuterol/Ipratropium (Duoneb 3.0-0.5 Mg/3 Ml) Confirm Administered Dose 3 ml .ROUTE .STK-MED ONE Stop: 01/02/20 21:31 Last Admin: 01/02/20 21:44 Dose: Not Given Documented by: Furosemide (Lasix) 20 mg PO ONETIME ONE Stop: 01/03/20 14:01 Last Admin: 01/03/20 14:33 Dose: 20 mg Documented by: Iopamidol (Isovue-300 (61%)) 100 ml IVPUSH ONETIME ONE Stop: 12/09/19 16:01 Last Admin: 12/09/19 18:21 Dose: 100 ml Documented by: Isosorbide Mononitrate (Imdur) 30 mg PO DAILY [facility] Last Admin: 01/02/20 22:34 Dose: Not Given Documented by: Isosorbide Mononitrate (Imdur) 30 mg PO DAILY STA Stop: 01/02/20 21:48 Last Admin: 01/02/20 22:33 Dose: 30 mg Documented by: Isosorbide Mononitrate (Imdur) 30 mg PO DAILY [facility] Last Admin: 01/05/20 08:12 Dose: 30 mg Documented by: Phytonadione (Vitamin K) 1,000 mcg PO ONETIME PRN PRN Reason: IF INR OVER 1.4 ON 12/29 Stop: 12/30/19 12:00 Warfarin Sodium (Coumadin) 2.5 mg PO MoTh@1999 [facility] Last Admin: 11/13/19 19:23 Dose: 2.5 mg Documented by: Warfarin Sodium (Coumadin) 5 mg PO SuTuWeFrSa@1999 [facility] Last Admin: 11/14/19 19:57 Dose: 5 mg Documented by: Warfarin Sodium (Coumadin) 5 mg PO SuMoTuWeFrSa@1999 [facility] Stop: 12/26/19 20:01 Last Admin: 12/26/19 20:42 Dose: 5 mg Documented by: Warfarin Sodium (Coumadin) 10 mg PO BEDTIME [facility] Stop: 01/04/20 23:59 Last Admin: 01/04/20 19:30 Dose: 10 mg Documented by: Sepsis Event Note - Evaluation Sepsis Screening Result: No Definite Risk - Focused Exam Vital Signs: Vital Signs Temp Pulse Pulse Resp BP BP Pulse Ox 01/13/20 07:49 68 152/74 H 01/13/20 06:00 36.3 C 81 16 152/74 H 97 - Problem List Review Problem List Initiated/Reviewed/Updated: Yes - My Orders Last 24 Hours: My Active Orders 01/20/20 06:00 INR,PT,PROTHROMBIN TIME [COAG] Routine 02/06/20 07:00 INR,PT,PROTHROMBIN TIME [COAG] Q28D 03/05/20 07:00 INR,PT,PROTHROMBIN TIME [COAG] Q28D"
[2020-01-13] MEDS: ROPINIROLE 0.5 MG PO SCH (19:38)
[2020-01-13] MEDS: Melatonin 3 MG Tab PO SCH (19:39)
[2020-01-13] MEDS: Gabapentin 300 MG Cap (OWN SUPPLY) PO SCH (19:40)
[2020-01-13] MEDS: Calcium Carbonate 750 MG Tab.Chew PO PRN (19:41)
[2020-01-13] MEDS ORDERED: Warfarin 5 MG Tab PO ONE (20:15)
[2020-01-13] MEDS: WARFARIN 5 MG PO SCH (20:32)
[2020-01-14 06:58] LABS: ANION GAP 6.4 mmol/L (10-20)
[2020-01-14] MEDS: Sertraline 100 MG Tab (OWN SUPPLY) PO SCH (08:40)
[2020-01-14] MEDS: Metoprolol Succinate 25 MG Tab.ER (OWN SUPPLY) PO SCH (08:40)
[2020-01-14] MEDS: ISOSORBIDE MONONITRATE 30 MG PO SCH (08:40)
[2020-01-14] MEDS: Acetaminophen 325 MG Tab PO SCH ×3 (08:41→19:59)
[2020-01-14] MEDS: Vitamin B Complex Tab PO SCH (08:42)
[2020-01-14] MEDS: Ferrous Sulfate 325 MG Tab PO SCH (08:42)
[2020-01-14] MEDS: Omeprazole 20 MG Cap.CR PO SCH (08:42)
[2020-01-14] MEDS: Famotidine 20 MG Tab PO SCH (08:42)
[2020-01-14] MEDS: Multivitamins with Iron/Calcium/Folic Acid/Minerals Tab PO SCH (08:42)
[2020-01-14] MEDS: Gabapentin 100 MG Cap (OWN SUPPLY) PO SCH ×2 (08:42→14:18)
[2020-01-14] MEDS: Calcium Carbonate 750 MG Tab.Chew PO PRN ×3 (08:43→19:59)
[2020-01-14] MEDS: Furosemide 20 MG Tab (OWN SUPPLY) PO SCH (09:39)
[2020-01-14] MEDS: Gabapentin 300 MG Cap (OWN SUPPLY) PO SCH (19:56)
[2020-01-14] MEDS: WARFARIN 5 MG PO SCH (19:57)
[2020-01-14] MEDS: ROPINIROLE 0.5 MG PO SCH (19:58)
[2020-01-14] MEDS: Melatonin 3 MG Tab PO SCH (19:59)
[2020-01-15] MEDS: Multivitamins with Iron/Calcium/Folic Acid/Minerals Tab PO SCH (09:12)
[2020-01-15] MEDS: Omeprazole 20 MG Cap.CR PO SCH (09:12)
[2020-01-15] MEDS: Acetaminophen 325 MG Tab PO SCH ×3 (09:12→19:45)
[2020-01-15] MEDS: Vitamin B Complex Tab PO SCH (09:12)
[2020-01-15] MEDS: Furosemide 20 MG Tab (OWN SUPPLY) PO SCH (09:14)
[2020-01-15] MEDS: Famotidine 20 MG Tab PO SCH (09:14)
[2020-01-15] MEDS: Metoprolol Succinate 25 MG Tab.ER (OWN SUPPLY) PO SCH (09:15)
[2020-01-15] MEDS: ISOSORBIDE MONONITRATE 30 MG PO SCH (09:15)
[2020-01-15] MEDS: Sertraline 100 MG Tab (OWN SUPPLY) PO SCH (09:16)
[2020-01-15] MEDS: Gabapentin 100 MG Cap (OWN SUPPLY) PO SCH ×2 (09:17→13:53)
[2020-01-15] MEDS: Calcium Carbonate 750 MG Tab.Chew PO PRN (09:19)
[2020-01-15] MEDS ORDERED: FLU Vacc QV2020-21(65YR UP)/PF 240 MCG/0.7 ML Syringe IM ONE (16:00)
[2020-01-15] MEDS: Gabapentin 300 MG Cap (OWN SUPPLY) PO SCH (19:39)
[2020-01-15] MEDS: ROPINIROLE 0.5 MG PO SCH (19:40)
[2020-01-15] MEDS: WARFARIN 5 MG PO SCH (19:44)
[2020-01-16] MEDS: Gabapentin 100 MG Cap (OWN SUPPLY) PO SCH ×2 (08:48→12:43)
[2020-01-16] MEDS: Sertraline 100 MG Tab (OWN SUPPLY) PO SCH (08:48)
[2020-01-16] MEDS: Acetaminophen 325 MG Tab PO SCH ×3 (08:49→21:09)
[2020-01-16] MEDS: Famotidine 20 MG Tab PO SCH (08:49)
[2020-01-16] MEDS: Omeprazole 20 MG Cap.CR PO SCH (08:49)
[2020-01-16] MEDS: Furosemide 20 MG Tab (OWN SUPPLY) PO SCH (08:49)
[2020-01-16] MEDS: ISOSORBIDE MONONITRATE 30 MG PO SCH (08:54)
[2020-01-16] MEDS: Metoprolol Succinate 25 MG Tab.ER (OWN SUPPLY) PO SCH (08:54)
[2020-01-16] MEDS ORDERED: FLU Vacc QV2020-21(65YR UP)/PF 240 MCG/0.7 ML Syringe IM ONE (10:00)
[2020-01-16] MEDS: ROPINIROLE 0.5 MG PO SCH (21:09)
[2020-01-16] MEDS: WARFARIN 5 MG PO SCH (21:10)
[2020-01-16] MEDS: Gabapentin 300 MG Cap (OWN SUPPLY) PO SCH (21:11)
[2020-01-17] MEDS: Gabapentin 100 MG Cap (OWN SUPPLY) PO SCH ×2 (08:45→12:29)
[2020-01-17] MEDS: Famotidine 20 MG Tab PO SCH (08:46)
[2020-01-17] MEDS: Sertraline 100 MG Tab (OWN SUPPLY) PO SCH (08:46)
[2020-01-17] MEDS: Acetaminophen 325 MG Tab PO SCH ×3 (08:46→20:08)
[2020-01-17] MEDS: Omeprazole 20 MG Cap.CR PO SCH (08:46)
[2020-01-17] MEDS: Furosemide 20 MG Tab (OWN SUPPLY) PO SCH (08:46)
[2020-01-17] MEDS: ISOSORBIDE MONONITRATE 30 MG PO SCH (08:49)
[2020-01-17] MEDS: Metoprolol Succinate 25 MG Tab.ER (OWN SUPPLY) PO SCH (08:49)
[2020-01-17] MEDS: Gabapentin 300 MG Cap (OWN SUPPLY) PO SCH (20:07)
[2020-01-17] MEDS: ROPINIROLE 0.5 MG PO SCH (20:09)
[2020-01-18] MEDS: Metoprolol Succinate 25 MG Tab.ER (OWN SUPPLY) PO SCH (08:20)
[2020-01-18] MEDS: ISOSORBIDE MONONITRATE 30 MG PO SCH (08:20)
[2020-01-18] MEDS: Furosemide 20 MG Tab (OWN SUPPLY) PO SCH (08:21)
[2020-01-18] MEDS: Gabapentin 100 MG Cap (OWN SUPPLY) PO SCH ×2 (08:21→12:43)
[2020-01-18] MEDS: Sertraline 100 MG Tab (OWN SUPPLY) PO SCH (08:21)
[2020-01-18] MEDS: Acetaminophen 325 MG Tab PO SCH ×3 (08:22→19:50)
[2020-01-18] MEDS: Omeprazole 20 MG Cap.CR PO SCH (08:22)
[2020-01-18] MEDS: Famotidine 20 MG Tab PO SCH (08:22)
[2020-01-18] MEDS: ROPINIROLE 0.5 MG PO SCH (19:49)
[2020-01-18] MEDS: Gabapentin 300 MG Cap (OWN SUPPLY) PO SCH (19:50)
[2020-01-19] MEDS: Gabapentin 100 MG Cap (OWN SUPPLY) PO SCH ×2 (08:28→12:53)
[2020-01-19] MEDS: Metoprolol Succinate 25 MG Tab.ER (OWN SUPPLY) PO SCH (08:28)
[2020-01-19] MEDS: Furosemide 20 MG Tab (OWN SUPPLY) PO SCH (08:28)
[2020-01-19] MEDS: Sertraline 100 MG Tab (OWN SUPPLY) PO SCH (08:28)
[2020-01-19] MEDS: ISOSORBIDE MONONITRATE 30 MG PO SCH (08:28)
[2020-01-19] MEDS: Famotidine 20 MG Tab PO SCH (08:29)
[2020-01-19] MEDS: Acetaminophen 325 MG Tab PO SCH ×3 (08:29→20:02)
[2020-01-19] MEDS: Omeprazole 20 MG Cap.CR PO SCH (08:29)
[2020-01-19] MEDS: Gabapentin 300 MG Cap (OWN SUPPLY) PO SCH (20:02)
[2020-01-19] MEDS: ROPINIROLE 0.5 MG PO SCH (20:02)
[2020-01-20] MEDS ORDERED: Phytonadione 100 MCG Tab PO PRN (08:00)
[2020-01-20] MEDS: Gabapentin 100 MG Cap (OWN SUPPLY) PO SCH ×2 (08:01→14:13)
[2020-01-20] MEDS: Metoprolol Succinate 25 MG Tab.ER (OWN SUPPLY) PO SCH (08:02)
[2020-01-20] MEDS: ISOSORBIDE MONONITRATE 30 MG PO SCH (08:03)
[2020-01-20] MEDS: Furosemide 20 MG Tab (OWN SUPPLY) PO SCH (08:03)
[2020-01-20] MEDS: Sertraline 100 MG Tab (OWN SUPPLY) PO SCH (08:03)
[2020-01-20] MEDS: Omeprazole 20 MG Cap.CR PO SCH (08:04)
[2020-01-20] MEDS: Acetaminophen 325 MG Tab PO SCH ×3 (08:04→20:08)
[2020-01-20] MEDS: Famotidine 20 MG Tab PO SCH (08:05)
[2020-01-20] MEDS: ROPINIROLE 0.5 MG PO SCH (20:08)
[2020-01-20] MEDS: Gabapentin 300 MG Cap (OWN SUPPLY) PO SCH (20:08)
[2020-01-21] MEDS: Gabapentin 100 MG Cap (OWN SUPPLY) PO SCH ×3 (05:59→13:16)
[2020-01-21] MEDS: Sertraline 100 MG Tab (OWN SUPPLY) PO SCH ×2 (06:00→07:58)
[2020-01-21] MEDS: Metoprolol Succinate 25 MG Tab.ER (OWN SUPPLY) PO SCH ×2 (06:00→07:58)
[2020-01-21] MEDS: ISOSORBIDE MONONITRATE 30 MG PO SCH ×2 (06:00→07:57)
[2020-01-21 06:01] VITALS: BP 142/70; PULSE 80
[2020-01-21] MEDS: Acetaminophen 325 MG Tab PO SCH ×2 (07:58→13:16)
--- NOTE | 2020-01-21 15:48 | PCM.DCSUM1 ---
Discharge Summary - Hospital Course Free Text/Narrative:: Bureaucratic discharge in order to leave for breast cancer surgery in [place]. No other health changes. Diagnosis: Stroke: No - Discharge Data Discharge Date: 01/21/20 Discharge Disposition: DC/Tfer to Acute Hospital 02 Condition: Good - Referral to Home Health Primary Care Physician: Arsenio Garcia MD - Patient Summary/Data Consults: Consultations 11/12/19 10:48 Consult to Case Management/Compressor Operator [CONS] Routine 12/09/19 12:01 PT Evaluation and Treatment [CONS] Routine - Discharge Plan *PRESCRIPTION DRUG MONITORING PROGRAM REVIEWED*: Not Applicable *COPY OF PRESCRIPTION DRUG MONITORING REPORT IN PATIENT MADAN: Not Applicable Home Medications: Home Meds Gabapentin 300 mg PO BEDTIME 09/29/14 [History] Nitroglycerin [Nitrostat] 0.4 mg SL ASDIRECTED PRN 09/29/14 [History] Sertraline [Zoloft] 100 mg PO DAILY 09/29/14 [History] rOPINIRole HCl [Requip] 0.5 mg PO BEDTIME 09/30/14 [History] Calcium Carbonate [Tums Extra Strength] 750 mg PO TID PRN 03/02/16 [History] Gabapentin [Neurontin] 100 mg PO BID@,03/02/16 [History] Docusate Sodium [Colace] 100 mg PO DAILY PRN 09/07/17 [History] Furosemide 20 mg PO DAILY 09/07/17 [History] Metoprolol Succinate 25 mg PO DAILY 09/07/17 [History] polyethylene glycoL 3350 [MiraLAX] 17 gm PO DAILY PRN 09/07/17 [History] Acetaminophen [Tylenol] 650 mg PO Q6H #0 09/11/17 [Rx] Sennosides/Docusate Sodium [Senna S Tablet] 1 each PO DAILY #30 tablet 09/11/17 [Rx] Famotidine 20 mg PO DAILY 06/13/18 [History] Warfarin Sodium [Jantoven] 5 mg PO ASDIRECTED 06/13/18 [History] Ferrous Sulfate 325 mg PO Q2D 05/20/19 [History] Melatonin 6 mg PO BEDTIME 05/20/19 [History] Miconazole [Desenex 2%] 45 gm TOP BID PRN 05/20/19 [History] Multivitamin [Daily Franci] 1 each PO DAILY 05/20/19 [History] - Discharge Summary/Plan Comment DC Time >30 min.: No - Patient Data Vitals - Most Recent: Last Vital Signs Temp 36.2 C 01/21/20 05:59 Pulse 80 01/21/20 06:00 Resp 16 01/13/20 06:00 BP 142/70 H 01/21/20 06:00 Pulse Ox 97 01/13/20 06:00 Weight - Most Recent: 85.729 kg Med Orders - Current: Current Medications Acetaminophen (Tylenol) 650 mg PO TID@0800,1300,2000 [facility] Last Admin: 01/21/20 13:16 Dose: Not Given Documented by: Buspirone HCl (Buspar) 5 mg PO BID [facility] Last Admin: 01/21/20 07:57 Dose: Not Given Documented by: Calcium Carbonate/Glycine (Tums Extra Strength) 750 mg PO TID PRN PRN Reason: Dyspepsia Last Admin: 01/15/20 09:19 Dose: 750 mg Documented by: Docusate Sodium (Colace) 100 mg PO DAILY PRN PRN Reason: Constipation Famotidine (Pepcid) 20 mg PO DAILY [facility] Last Admin: 01/20/20 08:05 Dose: 20 mg Documented by: Ferrous Sulfate (Ferrous Sulfate) 325 mg PO Q48H [facility] Last Admin: 01/14/20 08:42 Dose: 325 mg Documented by: Furosemide (Lasix) 20 mg PO DAILY [facility] Last Admin: 01/20/20 08:03 Dose: 20 mg Documented by: Gabapentin (Neurontin) 100 mg PO BID@0800,1300 [facility] Last Admin: 01/21/20 13:16 Dose: Not Given Documented by: Gabapentin (Neurontin) 300 mg PO BEDTIME [facility] Last Admin: 01/20/20 20:08 Dose: 300 mg Documented by: Isosorbide Mononitrate (Imdur) 30 mg PO DAILY [facility] Last Admin: 01/21/20 07:57 Dose: Not Given Documented by: Loperamide HCl (Imodium) 2 mg PO Q12H PRN PRN Reason: Diarrhea Last Admin: 01/08/20 04:57 Dose: 2 mg Documented by: Melatonin (Melatonin) 6 mg PO BEDTIME [facility] Last Admin: 01/14/20 19:59 Dose: 6 mg Documented by: Metoprolol Succinate (Toprol Xl) 25 mg PO DAILY [facility] Last Admin: 01/21/20 07:58 Dose: Not Given Documented by: Miconazole (Desenex 2%) 0 gm TOP BID PRN PRN Reason: RASH UNDER BILATERAL BREASTS Multivitamins/Minerals (Thera M Plus) 1 tab PO DAILY [facility] Last Admin: 01/15/20 09:12 Dose: 1 tab Documented by: Nitroglycerin (Nitrostat) 0.4 mg SL Q5M PRN PRN Reason: Chest Pain Last Admin: 01/02/20 20:57 Dose: 0.4 mg Documented by: Omeprazole (Omeprazole) 20 mg PO DAILY [facility] Last Admin: 01/20/20 08:04 Dose: 20 mg Documented by: Pharmacy Consult (Consult To Pharmacy) 1 each .XX ASDIRECTED [facility] Polyethylene Glycol (Miralax) 17 gm PO DAILY PRN PRN Reason: Constipation Ropinirole HCl (Requip) 0.5 mg PO BEDTIME [facility] Last Admin: 01/20/20 20:08 Dose: 0.5 mg Documented by: Senna/Docusate Sodium (Senna Plus) 1 tab PO DAILY PRN PRN Reason: Constipation Sertraline HCl (Zoloft) 100 mg PO DAILY [facility] Last Admin: 01/21/20 07:58 Dose: Not Given Documented by: Vitamin B Complex (Vitamin B Complex) 1 each PO DAILY [facility] Last Admin: 01/15/20 09:12 Dose: 1 each Documented by: Discontinued Medications Albuterol (Proventil Neb Soln) 1.25 mg NEB ONETIME ONE Stop: 01/02/20 21:31 Last Admin: 01/02/20 22:34 Dose: Not Given Documented by: Albuterol (Proventil Neb Soln) 1.25 mg NEB ONETIME STA Stop: 01/02/20 21:47 Last Admin: 01/02/20 21:40 Dose: 1.25 mg Documented by: Albuterol/Ipratropium (Duoneb 3.0-0.5 Mg/3 Ml) Confirm Administered Dose 3 ml .ROUTE .STK-MED ONE Stop: 01/02/20 21:31 Last Admin: 01/02/20 21:44 Dose: Not Given Documented by: Furosemide (Lasix) 20 mg PO ONETIME ONE Stop: 01/03/20 14:01 Last Admin: 01/03/20 14:33 Dose: 20 mg Documented by: Influenza Virus Vaccine (Fluzone High-Dose Quad 2019-) 240 mcg IM .ONCE ONE Stop: 01/15/20 16:01 Last Admin: 01/15/20 18:46 Dose: Not Given Documented by: Influenza Virus Vaccine (Fluzone High-Dose Quad 2019-21) 240 mcg IM .ONCE ONE Stop: 01/16/20 10:01 Last Admin: 01/16/20 10:36 Dose: 240 mcg Documented by: Iopamidol (Isovue-300 (61%)) 100 ml IVPUSH ONETIME ONE Stop: 12/09/19 16:01 Last Admin: 12/09/19 18:21 Dose: 100 ml Documented by: Isosorbide Mononitrate (Imdur) 30 mg PO DAILY [facility] Last Admin: 01/02/20 22:34 Dose: Not Given Documented by: Isosorbide Mononitrate (Imdur) 30 mg PO DAILY [facility] Stop: 01/02/20 21:48 Last Admin: 01/02/20 22:33 Dose: 30 mg Documented by: Isosorbide Mononitrate (Imdur) 30 mg PO DAILY [facility] Last Admin: 01/05/20 08:12 Dose: 30 mg Documented by: Phytonadione (Vitamin K) 1,000 mcg PO ONETIME PRN PRN Reason: IF INR OVER 1.4 ON 12/29 Stop: 12/30/19 12:00 Phytonadione (Vitamin K) 1,000 mcg PO ONETIME PRN PRN Reason: GIVE IF INR OVER 1.4 ON 01/19 Stop: 01/20/20 12:00 Warfarin Sodium (Coumadin) 2.5 mg PO MoTh@1999 [facility] Last Admin: 11/13/19 19:23 Dose: 2.5 mg Documented by: Warfarin Sodium (Coumadin) 5 mg PO SuTuWeFrSa@1999 [facility] Last Admin: 11/14/19 19:57 Dose: 5 mg Documented by: Warfarin Sodium (Coumadin) 2.5 mg PO Th@1999 [facility] Stop: 01/16/20 20:01 Last Admin: 01/15/20 19:44 Dose: 2.5 mg Documented by: Warfarin Sodium (Coumadin) 5 mg PO SuMoTuWeFrSa@1999 [facility] Stop: 12/26/19 20:01 Last Admin: 12/26/19 20:42 Dose: 5 mg Documented by: Warfarin Sodium (Coumadin) 5 mg PO [email or web address]@2000 [facility] Stop: 01/16/20 20:01 Last Admin: 01/16/20 21:10 Dose: 5 mg Documented by: Warfarin Sodium (Coumadin) 10 mg PO BEDTIME J[facility] Stop: 01/04/20 23:59 Last Admin: 01/04/20 19:30 Dose: 10 mg Documented by: Warfarin Sodium (Coumadin) 5 mg PO ONETIME ONE Stop: 01/13/20 20:16 Last Admin: 01/13/20 20:17 Dose: 5 mg Documented by:
== END 2020-01-21 16:53 | disposition short-term general hospital (02) | DRG 641 ==
LOC: VM.MS 11:08
PROVIDERS: ADMIT Family Medicine; ATTEND Family Medicine
DX: R62.7 Adult failure to thrive (principal); I13.0 Hypertensive heart and chronic kidney disease with heart failure and stage 1 through stage 4 chronic kidney disease, or unspecified chronic kidney disease; I50.32 Chronic diastolic (congestive) heart failure; R79.1 Abnormal coagulation profile; C50.919 Malignant neoplasm of unspecified site of unspecified female breast; G25.81 Restless legs syndrome; H43.819 Vitreous degeneration, unspecified eye; E66.9 Obesity, unspecified; M81.0 Age-related osteoporosis without current pathological fracture; M10.9 Gout, unspecified; K21.9 Gastro-esophageal reflux disease without esophagitis; I25.10 Atherosclerotic heart disease of native coronary artery without angina pectoris; N18.9 Chronic kidney disease, unspecified; F41.9 Anxiety disorder, unspecified; F32.9 Major depressive disorder, single episode, unspecified; D64.9 Anemia, unspecified; Z79.899 Other long term (current) drug therapy; Z88.8 Allergy status to other drugs, medicaments and biological substances; Z85.828 Personal history of other malignant neoplasm of skin; Z85.43 Personal history of malignant neoplasm of ovary; Z86.718 Personal history of other venous thrombosis and embolism; Z79.01 Long term (current) use of anticoagulants; R12 Heartburn
CPT/HCPCS: 36415; 71045; 71260; 80048; 80053; 83880; 84443; 85025; 85610; 90662; 93005; 97161-GP; A9270-GY; G0008; Q9967

== ENCOUNTER → 2019-11-12 11:07 | Inpatient (IN) | payer MEDICAID, MEDICARE ==
[2018-11-12] MEDS: GABAPENTIN 300 MG PO SCH (20:33)
[2018-11-12] MEDS: ROPINIROLE 0.5 MG PO SCH (20:34)
[2018-11-12] MEDS: [UNRECOGNIZED DRUG - OTHER] PO SCH (20:34)
[2018-11-12] MEDS: Melatonin 3 MG Tab PO SCH (20:35)
[2018-11-12] MEDS: Acetaminophen 325 MG Tab PO SCH (20:35)
[2018-11-13] MEDS: Acetaminophen 325 MG Tab PO SCH ×4 (05:10→19:41)
[2018-11-13] MEDS: SERTRALINE 100 MG PO SCH (08:48)
[2018-11-13] MEDS: [UNRECOGNIZED DRUG - OTHER] PO SCH (08:48)
[2018-11-13] MEDS: Famotidine 20 MG Tab PO SCH (08:48)
[2018-11-13] MEDS: GABAPENTIN 100 MG PO SCH ×2 (08:48→12:52)
[2018-11-13] MEDS: [UNRECOGNIZED DRUG - OTHER] PO SCH (08:48)
[2018-11-13] MEDS: Polyethylene Glycol 3350 Powder 17 GM Packet PO SCH (08:49)
[2018-11-13] MEDS: GABAPENTIN 300 MG PO SCH (19:40)
[2018-11-13] MEDS: ROPINIROLE 0.5 MG PO SCH (19:41)
[2018-11-13] MEDS: [UNRECOGNIZED DRUG - OTHER] PO SCH (19:41)
[2018-11-13] MEDS: Melatonin 3 MG Tab PO SCH (19:42)
[2018-11-14] MEDS: Acetaminophen 325 MG Tab PO SCH ×4 (05:52→19:56)
[2018-11-14] MEDS: [UNRECOGNIZED DRUG - OTHER] PO SCH (07:47)
[2018-11-14] MEDS: [UNRECOGNIZED DRUG - OTHER] PO SCH (07:48)
[2018-11-14] MEDS: Polyethylene Glycol 3350 Powder 17 GM Packet PO SCH (07:49)
[2018-11-14] MEDS: GABAPENTIN 100 MG PO SCH ×2 (07:49→13:10)
[2018-11-14] MEDS: SERTRALINE 100 MG PO SCH (07:50)
[2018-11-14] MEDS: Famotidine 20 MG Tab PO SCH (07:54)
[2018-11-14] MEDS: GABAPENTIN 300 MG PO SCH (19:54)
[2018-11-14] MEDS: WARFARIN PO SCH (19:54)
[2018-11-14] MEDS: ROPINIROLE 0.5 MG PO SCH (19:55)
[2018-11-14] MEDS: Melatonin 3 MG Tab PO SCH (19:55)
[2018-11-15] MEDS: Acetaminophen 325 MG Tab PO SCH ×4 (03:05→19:43)
[2018-11-15] MEDS: Famotidine 20 MG Tab PO SCH (08:03)
[2018-11-15] MEDS: SERTRALINE 100 MG PO SCH (08:04)
[2018-11-15] MEDS: [UNRECOGNIZED DRUG - OTHER] PO SCH (08:04)
[2018-11-15] MEDS: [UNRECOGNIZED DRUG - OTHER] PO SCH (08:04)
[2018-11-15] MEDS: GABAPENTIN 100 MG PO SCH ×2 (08:04→12:19)
[2018-11-15] MEDS: Polyethylene Glycol 3350 Powder 17 GM Packet PO SCH (08:06)
[2018-11-15] MEDS: [UNRECOGNIZED DRUG - OTHER] PO SCH (19:42)
[2018-11-15] MEDS: GABAPENTIN 300 MG PO SCH (19:42)
[2018-11-15] MEDS: ROPINIROLE 0.5 MG PO SCH (19:42)
[2018-11-15] MEDS: Melatonin 3 MG Tab PO SCH (19:43)
[2018-11-16] MEDS: Acetaminophen 325 MG Tab PO SCH ×4 (02:05→20:21)
[2018-11-16] MEDS: Famotidine 20 MG Tab PO SCH (07:29)
[2018-11-16] MEDS: [UNRECOGNIZED DRUG - OTHER] PO SCH (07:30)
[2018-11-16] MEDS: GABAPENTIN 100 MG PO SCH ×2 (07:30→13:12)
[2018-11-16] MEDS: Polyethylene Glycol 3350 Powder 17 GM Packet PO SCH (07:30)
[2018-11-16] MEDS: [UNRECOGNIZED DRUG - OTHER] PO SCH (07:30)
[2018-11-16] MEDS: SERTRALINE 100 MG PO SCH (07:30)
[2018-11-16] MEDS: ROPINIROLE 0.5 MG PO SCH (20:20)
[2018-11-16] MEDS: GABAPENTIN 300 MG PO SCH (20:20)
[2018-11-16] MEDS: [UNRECOGNIZED DRUG - OTHER] PO SCH (20:20)
[2018-11-16] MEDS: Melatonin 3 MG Tab PO SCH (20:21)
[2018-11-17] MEDS: Acetaminophen 325 MG Tab PO SCH ×4 (04:15→20:15)
[2018-11-17] MEDS: Famotidine 20 MG Tab PO SCH (08:42)
[2018-11-17] MEDS: SERTRALINE 100 MG PO SCH (08:42)
[2018-11-17] MEDS: [UNRECOGNIZED DRUG - OTHER] PO SCH (08:43)
[2018-11-17] MEDS: [UNRECOGNIZED DRUG - OTHER] PO SCH (08:43)
[2018-11-17] MEDS: GABAPENTIN 100 MG PO SCH ×2 (08:44→12:47)
[2018-11-17] MEDS: Polyethylene Glycol 3350 Powder 17 GM Packet PO SCH (08:49)
[2018-11-17] MEDS: Melatonin 3 MG Tab PO SCH (20:15)
[2018-11-17] MEDS: GABAPENTIN 300 MG PO SCH (20:17)
[2018-11-17] MEDS: [UNRECOGNIZED DRUG - OTHER] PO SCH (20:17)
[2018-11-17] MEDS: ROPINIROLE 0.5 MG PO SCH (20:18)
[2018-11-18] MEDS: Acetaminophen 325 MG Tab PO SCH ×4 (02:24→19:59)
[2018-11-18] MEDS: [UNRECOGNIZED DRUG - OTHER] PO SCH (08:23)
[2018-11-18] MEDS: GABAPENTIN 100 MG PO SCH ×2 (08:23→12:40)
[2018-11-18] MEDS: Famotidine 20 MG Tab PO SCH (08:23)
[2018-11-18] MEDS: SERTRALINE 100 MG PO SCH (08:24)
[2018-11-18] MEDS: [UNRECOGNIZED DRUG - OTHER] PO SCH (08:24)
[2018-11-18] MEDS: Polyethylene Glycol 3350 Powder 17 GM Packet PO SCH (08:27)
[2018-11-18] MEDS: GABAPENTIN 300 MG PO SCH (19:57)
[2018-11-18] MEDS: ROPINIROLE 0.5 MG PO SCH (19:58)
[2018-11-18] MEDS: Melatonin 3 MG Tab PO SCH (19:59)
[2018-11-18] MEDS: WARFARIN PO SCH (19:59)
[2018-11-19] MEDS: Acetaminophen 325 MG Tab PO SCH ×4 (02:32→20:50)
[2018-11-19] MEDS: [UNRECOGNIZED DRUG - OTHER] PO SCH (08:17)
[2018-11-19] MEDS: SERTRALINE 100 MG PO SCH (08:17)
[2018-11-19] MEDS: Famotidine 20 MG Tab PO SCH (08:17)
[2018-11-19] MEDS: GABAPENTIN 100 MG PO SCH ×2 (08:17→13:07)
[2018-11-19] MEDS: [UNRECOGNIZED DRUG - OTHER] PO SCH (08:18)
[2018-11-19] MEDS: Polyethylene Glycol 3350 Powder 17 GM Packet PO SCH (08:19)
[2018-11-19] MEDS: ROPINIROLE 0.5 MG PO SCH (20:47)
[2018-11-19] MEDS: [UNRECOGNIZED DRUG - OTHER] PO SCH (20:48)
[2018-11-19] MEDS: GABAPENTIN 300 MG PO SCH (20:49)
[2018-11-19] MEDS: Melatonin 3 MG Tab PO SCH (20:49)
[2018-11-20] MEDS: Acetaminophen 325 MG Tab PO SCH ×4 (02:25→19:57)
[2018-11-20] MEDS: [UNRECOGNIZED DRUG - OTHER] PO SCH (08:27)
[2018-11-20] MEDS: Polyethylene Glycol 3350 Powder 17 GM Packet PO SCH (08:27)
[2018-11-20] MEDS: [UNRECOGNIZED DRUG - OTHER] PO SCH (08:27)
[2018-11-20] MEDS: Famotidine 20 MG Tab PO SCH (08:27)
[2018-11-20] MEDS: SERTRALINE 100 MG PO SCH (08:27)
[2018-11-20] MEDS: GABAPENTIN 100 MG PO SCH ×2 (08:28→12:09)
[2018-11-20] MEDS: GABAPENTIN 300 MG PO SCH (19:51)
[2018-11-20] MEDS: ROPINIROLE 0.5 MG PO SCH (19:55)
[2018-11-20] MEDS: [UNRECOGNIZED DRUG - OTHER] PO SCH (19:56)
[2018-11-20] MEDS: Melatonin 3 MG Tab PO SCH (19:57)
[2018-11-21] MEDS: Acetaminophen 325 MG Tab PO SCH ×4 (04:21→19:51)
[2018-11-21] MEDS: [UNRECOGNIZED DRUG - OTHER] PO SCH (07:42)
[2018-11-21] MEDS: GABAPENTIN 100 MG PO SCH ×2 (07:42→13:55)
[2018-11-21] MEDS: [UNRECOGNIZED DRUG - OTHER] PO SCH (07:43)
[2018-11-21] MEDS: SERTRALINE 100 MG PO SCH (07:43)
[2018-11-21] MEDS: Famotidine 20 MG Tab PO SCH (07:43)
[2018-11-21] MEDS: Polyethylene Glycol 3350 Powder 17 GM Packet PO SCH (07:44)
[2018-11-21] MEDS: GABAPENTIN 300 MG PO SCH (19:47)
[2018-11-21] MEDS: ROPINIROLE 0.5 MG PO SCH (19:49)
[2018-11-21] MEDS: WARFARIN PO SCH (19:50)
[2018-11-21] MEDS: Melatonin 3 MG Tab PO SCH (19:51)
[2018-11-22] MEDS: Acetaminophen 325 MG Tab PO SCH ×4 (02:05→19:27)
[2018-11-22] MEDS: SERTRALINE 100 MG PO SCH (07:40)
[2018-11-22] MEDS: [UNRECOGNIZED DRUG - OTHER] PO SCH (07:40)
[2018-11-22] MEDS: [UNRECOGNIZED DRUG - OTHER] PO SCH (07:40)
[2018-11-22] MEDS: GABAPENTIN 100 MG PO SCH ×2 (07:41→13:19)
[2018-11-22] MEDS: Famotidine 20 MG Tab PO SCH (07:41)
[2018-11-22] MEDS: Polyethylene Glycol 3350 Powder 17 GM Packet PO SCH (07:44)
[2018-11-22] MEDS: Melatonin 3 MG Tab PO SCH (19:26)
[2018-11-22] MEDS: GABAPENTIN 300 MG PO SCH (19:26)
[2018-11-22] MEDS: ROPINIROLE 0.5 MG PO SCH (19:26)
[2018-11-22] MEDS: [UNRECOGNIZED DRUG - OTHER] PO SCH (19:27)
[2018-11-23] MEDS: Acetaminophen 325 MG Tab PO SCH ×4 (02:38→19:51)
[2018-11-23] MEDS: SERTRALINE 100 MG PO SCH (07:39)
[2018-11-23] MEDS: [UNRECOGNIZED DRUG - OTHER] PO SCH (07:39)
[2018-11-23] MEDS: [UNRECOGNIZED DRUG - OTHER] PO SCH (07:39)
[2018-11-23] MEDS: Famotidine 20 MG Tab PO SCH (07:40)
[2018-11-23] MEDS: Polyethylene Glycol 3350 Powder 17 GM Packet PO SCH (07:44)
[2018-11-23] MEDS: GABAPENTIN 100 MG PO SCH ×2 (07:44→15:45)
[2018-11-23] MEDS: GABAPENTIN 300 MG PO SCH (19:44)
[2018-11-23] MEDS: ROPINIROLE 0.5 MG PO SCH (19:47)
[2018-11-23] MEDS: [UNRECOGNIZED DRUG - OTHER] PO SCH (19:48)
[2018-11-23] MEDS: Melatonin 3 MG Tab PO SCH (19:50)
[2018-11-24] MEDS: Acetaminophen 325 MG Tab PO SCH ×4 (01:45→19:07)
[2018-11-24] MEDS: SERTRALINE 100 MG PO SCH (07:36)
[2018-11-24] MEDS: Polyethylene Glycol 3350 Powder 17 GM Packet PO SCH (07:37)
[2018-11-24] MEDS: GABAPENTIN 100 MG PO SCH ×2 (07:37→13:38)
[2018-11-24] MEDS: [UNRECOGNIZED DRUG - OTHER] PO SCH (07:37)
[2018-11-24] MEDS: [UNRECOGNIZED DRUG - OTHER] PO SCH (07:37)
[2018-11-24] MEDS: Famotidine 20 MG Tab PO SCH (10:43)
[2018-11-24] MEDS: ROPINIROLE 0.5 MG PO SCH (19:07)
[2018-11-24] MEDS: GABAPENTIN 300 MG PO SCH (19:07)
[2018-11-24] MEDS: Melatonin 3 MG Tab PO SCH (19:08)
[2018-11-24] MEDS: [UNRECOGNIZED DRUG - OTHER] PO SCH (19:08)
[2018-11-25] MEDS: Acetaminophen 325 MG Tab PO SCH ×4 (02:46→19:18)
[2018-11-25] MEDS: [UNRECOGNIZED DRUG - OTHER] PO SCH (07:34)
[2018-11-25] MEDS: GABAPENTIN 100 MG PO SCH ×2 (07:34→13:31)
[2018-11-25] MEDS: SERTRALINE 100 MG PO SCH (07:34)
[2018-11-25] MEDS: [UNRECOGNIZED DRUG - OTHER] PO SCH (07:34)
[2018-11-25] MEDS: Polyethylene Glycol 3350 Powder 17 GM Packet PO SCH (07:34)
[2018-11-25] MEDS: Famotidine 20 MG Tab PO SCH (07:35)
[2018-11-25] MEDS: ROPINIROLE 0.5 MG PO SCH (19:16)
[2018-11-25] MEDS: WARFARIN PO SCH (19:17)
[2018-11-25] MEDS: Melatonin 3 MG Tab PO SCH (19:18)
[2018-11-25] MEDS: GABAPENTIN 300 MG PO SCH (19:19)
[2018-11-26] MEDS: Acetaminophen 325 MG Tab PO SCH ×4 (06:21→19:09)
[2018-11-26] MEDS: GABAPENTIN 100 MG PO SCH ×2 (08:04→12:38)
[2018-11-26] MEDS: SERTRALINE 100 MG PO SCH (08:04)
[2018-11-26] MEDS: [UNRECOGNIZED DRUG - OTHER] PO SCH (08:04)
[2018-11-26] MEDS: [UNRECOGNIZED DRUG - OTHER] PO SCH (08:04)
[2018-11-26] MEDS: Famotidine 20 MG Tab PO SCH (08:05)
[2018-11-26] MEDS: Polyethylene Glycol 3350 Powder 17 GM Packet PO SCH (08:08)
[2018-11-26] MEDS: Calcium Carbonate 750 MG Tab.Chew PO PRN (12:41)
[2018-11-26] MEDS: GABAPENTIN 300 MG PO SCH (19:07)
[2018-11-26] MEDS: Melatonin 3 MG Tab PO SCH (19:08)
[2018-11-26] MEDS: ROPINIROLE 0.5 MG PO SCH (19:09)
[2018-11-26] MEDS: [UNRECOGNIZED DRUG - OTHER] PO SCH (19:10)
[2018-11-27] MEDS: Acetaminophen 325 MG Tab PO SCH ×4 (01:44→19:36)
[2018-11-27] MEDS: Famotidine 20 MG Tab PO SCH (07:55)
[2018-11-27] MEDS: [UNRECOGNIZED DRUG - OTHER] PO SCH (07:55)
[2018-11-27] MEDS: SERTRALINE 100 MG PO SCH (07:55)
[2018-11-27] MEDS: [UNRECOGNIZED DRUG - OTHER] PO SCH (07:55)
[2018-11-27] MEDS: GABAPENTIN 100 MG PO SCH ×2 (07:55→13:15)
[2018-11-27] MEDS: Polyethylene Glycol 3350 Powder 17 GM Packet PO SCH (07:55)
[2018-11-27] MEDS: [UNRECOGNIZED DRUG - OTHER] PO SCH (19:37)
[2018-11-27] MEDS: ROPINIROLE 0.5 MG PO SCH (19:37)
[2018-11-27] MEDS: Melatonin 3 MG Tab PO SCH (19:37)
[2018-11-27] MEDS: GABAPENTIN 300 MG PO SCH (19:38)
[2018-11-28] MEDS: Acetaminophen 325 MG Tab PO SCH ×4 (02:54→19:26)
[2018-11-28] MEDS: Famotidine 20 MG Tab PO SCH (07:31)
[2018-11-28] MEDS: [UNRECOGNIZED DRUG - OTHER] PO SCH (07:32)
[2018-11-28] MEDS: [UNRECOGNIZED DRUG - OTHER] PO SCH (07:32)
[2018-11-28] MEDS: SERTRALINE 100 MG PO SCH (07:32)
[2018-11-28] MEDS: GABAPENTIN 100 MG PO SCH ×2 (07:33→12:42)
[2018-11-28] MEDS: Polyethylene Glycol 3350 Powder 17 GM Packet PO SCH (07:33)
[2018-11-28] MEDS: Multivitamin, Stress Formula with Zinc Tab PO SCH (12:41)
[2018-11-28] MEDS: GABAPENTIN 300 MG PO SCH (19:24)
[2018-11-28] MEDS: WARFARIN PO SCH (19:25)
[2018-11-28] MEDS: Melatonin 3 MG Tab PO SCH (19:26)
[2018-11-28] MEDS: ROPINIROLE 0.5 MG PO SCH (19:26)
[2018-11-29] MEDS: Acetaminophen 325 MG Tab PO SCH ×4 (02:59→20:31)
[2018-11-29] MEDS: GABAPENTIN 100 MG PO SCH ×2 (07:34→12:00)
[2018-11-29] MEDS: Polyethylene Glycol 3350 Powder 17 GM Packet PO SCH (07:34)
[2018-11-29] MEDS: Multivitamin, Stress Formula with Zinc Tab PO SCH (07:36)
[2018-11-29] MEDS: Famotidine 20 MG Tab PO SCH (07:36)
[2018-11-29] MEDS: [UNRECOGNIZED DRUG - OTHER] PO SCH (07:37)
[2018-11-29] MEDS: SERTRALINE 100 MG PO SCH (07:37)
[2018-11-29] MEDS: [UNRECOGNIZED DRUG - OTHER] PO SCH (07:38)
[2018-11-29] MEDS: GABAPENTIN 300 MG PO SCH (20:28)
[2018-11-29] MEDS: Melatonin 3 MG Tab PO SCH (20:31)
[2018-11-29] MEDS: ROPINIROLE 0.5 MG PO SCH (20:32)
[2018-11-29] MEDS: [UNRECOGNIZED DRUG - OTHER] PO SCH (20:32)
[2018-11-30] MEDS: Acetaminophen 325 MG Tab PO SCH ×4 (03:09→21:00)
[2018-11-30] MEDS: [UNRECOGNIZED DRUG - OTHER] PO SCH (08:06)
[2018-11-30] MEDS: [UNRECOGNIZED DRUG - OTHER] PO SCH (08:07)
[2018-11-30] MEDS: SERTRALINE 100 MG PO SCH (08:07)
[2018-11-30] MEDS: GABAPENTIN 100 MG PO SCH ×2 (08:08→13:32)
[2018-11-30] MEDS: Polyethylene Glycol 3350 Powder 17 GM Packet PO SCH (08:08)
[2018-11-30] MEDS: Famotidine 20 MG Tab PO SCH (08:14)
[2018-11-30] MEDS: Multivitamin, Stress Formula with Zinc Tab PO SCH (08:14)
[2018-11-30] MEDS: [UNRECOGNIZED DRUG - OTHER] PO SCH (21:00)
[2018-11-30] MEDS: Melatonin 3 MG Tab PO SCH (21:00)
[2018-11-30] MEDS: ROPINIROLE 0.5 MG PO SCH (21:00)
[2018-11-30] MEDS: GABAPENTIN 300 MG PO SCH (21:00)
[2018-12-01] MEDS: Acetaminophen 325 MG Tab PO SCH ×4 (03:04→20:08)
[2018-12-01] MEDS: GABAPENTIN 100 MG PO SCH ×2 (09:02→13:33)
[2018-12-01] MEDS: [UNRECOGNIZED DRUG - OTHER] PO SCH (09:02)
[2018-12-01] MEDS: SERTRALINE 100 MG PO SCH (09:02)
[2018-12-01] MEDS: Polyethylene Glycol 3350 Powder 17 GM Packet PO SCH (09:03)
[2018-12-01] MEDS: [UNRECOGNIZED DRUG - OTHER] PO SCH (09:03)
[2018-12-01] MEDS: Famotidine 20 MG Tab PO SCH (09:08)
[2018-12-01] MEDS: Multivitamin, Stress Formula with Zinc Tab PO SCH (09:08)
[2018-12-01] MEDS: [UNRECOGNIZED DRUG - OTHER] PO SCH (20:07)
[2018-12-01] MEDS: Melatonin 3 MG Tab PO SCH (20:07)
[2018-12-01] MEDS: ROPINIROLE 0.5 MG PO SCH (20:07)
[2018-12-01] MEDS: GABAPENTIN 300 MG PO SCH (20:09)
[2018-12-02] MEDS: Acetaminophen 325 MG Tab PO SCH ×4 (02:48→20:56)
[2018-12-02] MEDS: Famotidine 20 MG Tab PO SCH (08:39)
[2018-12-02] MEDS: Multivitamin, Stress Formula with Zinc Tab PO SCH (08:39)
[2018-12-02] MEDS: GABAPENTIN 100 MG PO SCH ×2 (08:41→12:45)
[2018-12-02] MEDS: SERTRALINE 100 MG PO SCH (08:42)
[2018-12-02] MEDS: [UNRECOGNIZED DRUG - OTHER] PO SCH (08:42)
[2018-12-02] MEDS: [UNRECOGNIZED DRUG - OTHER] PO SCH (08:42)
[2018-12-02] MEDS: Polyethylene Glycol 3350 Powder 17 GM Packet PO SCH (08:43)
[2018-12-02] MEDS: GABAPENTIN 300 MG PO SCH (20:55)
[2018-12-02] MEDS: WARFARIN PO SCH (20:55)
[2018-12-02] MEDS: ROPINIROLE 0.5 MG PO SCH (20:55)
[2018-12-02] MEDS: Melatonin 3 MG Tab PO SCH (20:56)
[2018-12-03] MEDS: Acetaminophen 325 MG Tab PO SCH ×4 (05:11→19:50)
[2018-12-03] MEDS: Multivitamin, Stress Formula with Zinc Tab PO SCH (08:20)
[2018-12-03] MEDS: Famotidine 20 MG Tab PO SCH (08:21)
[2018-12-03] MEDS: GABAPENTIN 100 MG PO SCH ×2 (08:21→12:26)
[2018-12-03] MEDS: [UNRECOGNIZED DRUG - OTHER] PO SCH (08:21)
[2018-12-03] MEDS: SERTRALINE 100 MG PO SCH (08:22)
[2018-12-03] MEDS: [UNRECOGNIZED DRUG - OTHER] PO SCH (08:22)
[2018-12-03] MEDS: Polyethylene Glycol 3350 Powder 17 GM Packet PO SCH (08:23)
[2018-12-03] MEDS: GABAPENTIN 300 MG PO SCH (19:48)
[2018-12-03] MEDS: ROPINIROLE 0.5 MG PO SCH (19:50)
[2018-12-03] MEDS: [UNRECOGNIZED DRUG - OTHER] PO SCH (19:50)
[2018-12-03] MEDS: Melatonin 3 MG Tab PO SCH (19:50)
[2018-12-04] MEDS: Acetaminophen 325 MG Tab PO SCH ×4 (05:46→19:57)
[2018-12-04] MEDS: Multivitamin, Stress Formula with Zinc Tab PO SCH (08:52)
[2018-12-04] MEDS: GABAPENTIN 100 MG PO SCH ×2 (08:52→14:26)
[2018-12-04] MEDS: Famotidine 20 MG Tab PO SCH (08:52)
[2018-12-04] MEDS: [UNRECOGNIZED DRUG - OTHER] PO SCH (08:53)
[2018-12-04] MEDS: SERTRALINE 100 MG PO SCH (08:53)
[2018-12-04] MEDS: [UNRECOGNIZED DRUG - OTHER] PO SCH (08:54)
[2018-12-04] MEDS: Polyethylene Glycol 3350 Powder 17 GM Packet PO SCH (08:57)
[2018-12-04] MEDS: [UNRECOGNIZED DRUG - OTHER] PO SCH (19:55)
[2018-12-04] MEDS: ROPINIROLE 0.5 MG PO SCH (19:56)
[2018-12-04] MEDS: GABAPENTIN 300 MG PO SCH (19:56)
[2018-12-04] MEDS: Melatonin 3 MG Tab PO SCH (19:58)
[2018-12-05] MEDS: Acetaminophen 325 MG Tab PO SCH ×4 (03:00→21:00)
[2018-12-05] MEDS: GABAPENTIN 100 MG PO SCH ×2 (09:03→13:05)
[2018-12-05] MEDS: Multivitamin, Stress Formula with Zinc Tab PO SCH (09:03)
[2018-12-05] MEDS: [UNRECOGNIZED DRUG - OTHER] PO SCH (09:04)
[2018-12-05] MEDS: [UNRECOGNIZED DRUG - OTHER] PO SCH (09:05)
[2018-12-05] MEDS: SERTRALINE 100 MG PO SCH (09:05)
[2018-12-05] MEDS: Polyethylene Glycol 3350 Powder 17 GM Packet PO SCH (09:06)
[2018-12-05] MEDS: Famotidine 20 MG Tab PO SCH (09:10)
[2018-12-05] MEDS: GABAPENTIN 300 MG PO SCH (20:59)
[2018-12-05] MEDS: WARFARIN PO SCH (21:00)
[2018-12-05] MEDS: Melatonin 3 MG Tab PO SCH (21:00)
[2018-12-05] MEDS: ROPINIROLE 0.5 MG PO SCH (21:00)
[2018-12-06] MEDS: Acetaminophen 325 MG Tab PO SCH ×4 (04:33→19:16)
[2018-12-06] MEDS: Multivitamin, Stress Formula with Zinc Tab PO SCH (08:34)
[2018-12-06] MEDS: [UNRECOGNIZED DRUG - OTHER] PO SCH (08:35)
[2018-12-06] MEDS: GABAPENTIN 100 MG PO SCH ×2 (08:35→13:35)
[2018-12-06] MEDS: SERTRALINE 100 MG PO SCH (08:35)
[2018-12-06] MEDS: [UNRECOGNIZED DRUG - OTHER] PO SCH (08:35)
[2018-12-06] MEDS: Famotidine 20 MG Tab PO SCH (08:35)
[2018-12-06] MEDS: Polyethylene Glycol 3350 Powder 17 GM Packet PO SCH (08:37)
[2018-12-06] MEDS: GABAPENTIN 300 MG PO SCH (19:13)
[2018-12-06] MEDS: Melatonin 3 MG Tab PO SCH (19:15)
[2018-12-06] MEDS: ROPINIROLE 0.5 MG PO SCH (19:16)
[2018-12-06] MEDS: [UNRECOGNIZED DRUG - OTHER] PO SCH (19:17)
[2018-12-07] MEDS: Acetaminophen 325 MG Tab PO SCH ×4 (01:48→19:09)
[2018-12-07] MEDS: GABAPENTIN 100 MG PO SCH ×2 (08:27→13:50)
[2018-12-07] MEDS: [UNRECOGNIZED DRUG - OTHER] PO SCH (08:27)
[2018-12-07] MEDS: SERTRALINE 100 MG PO SCH (08:28)
[2018-12-07] MEDS: Famotidine 20 MG Tab PO SCH (08:28)
[2018-12-07] MEDS: [UNRECOGNIZED DRUG - OTHER] PO SCH (08:28)
[2018-12-07] MEDS: Polyethylene Glycol 3350 Powder 17 GM Packet PO SCH (08:30)
[2018-12-07] MEDS: Multivitamin, Stress Formula with Zinc Tab PO SCH (08:33)
[2018-12-07] MEDS: GABAPENTIN 300 MG PO SCH (19:08)
[2018-12-07] MEDS: ROPINIROLE 0.5 MG PO SCH (19:09)
[2018-12-07] MEDS: Melatonin 3 MG Tab PO SCH (19:09)
[2018-12-07] MEDS: [UNRECOGNIZED DRUG - OTHER] PO SCH (19:09)
[2018-12-08] MEDS: Acetaminophen 325 MG Tab PO SCH ×4 (02:10→19:30)
[2018-12-08] MEDS: Multivitamin, Stress Formula with Zinc Tab PO SCH (09:36)
[2018-12-08] MEDS: Famotidine 20 MG Tab PO SCH (09:36)
[2018-12-08] MEDS: [UNRECOGNIZED DRUG - OTHER] PO SCH (09:37)
[2018-12-08] MEDS: SERTRALINE 100 MG PO SCH (09:37)
[2018-12-08] MEDS: [UNRECOGNIZED DRUG - OTHER] PO SCH (09:37)
[2018-12-08] MEDS: GABAPENTIN 100 MG PO SCH ×2 (09:38→13:59)
[2018-12-08] MEDS: Polyethylene Glycol 3350 Powder 17 GM Packet PO SCH (09:38)
[2018-12-08] MEDS: ROPINIROLE 0.5 MG PO SCH (19:29)
[2018-12-08] MEDS: GABAPENTIN 300 MG PO SCH (19:29)
[2018-12-08] MEDS: Melatonin 3 MG Tab PO SCH (19:29)
[2018-12-08] MEDS: [UNRECOGNIZED DRUG - OTHER] PO SCH (19:30)
[2018-12-09] MEDS: Acetaminophen 325 MG Tab PO SCH ×4 (01:32→19:09)
[2018-12-09] MEDS: [UNRECOGNIZED DRUG - OTHER] PO SCH (08:20)
[2018-12-09] MEDS: SERTRALINE 100 MG PO SCH (08:21)
[2018-12-09] MEDS: GABAPENTIN 100 MG PO SCH ×2 (08:21→12:36)
[2018-12-09] MEDS: Polyethylene Glycol 3350 Powder 17 GM Packet PO SCH (08:21)
[2018-12-09] MEDS: [UNRECOGNIZED DRUG - OTHER] PO SCH (08:21)
[2018-12-09] MEDS: Famotidine 20 MG Tab PO SCH (08:21)
[2018-12-09] MEDS: Multivitamin, Stress Formula with Zinc Tab PO SCH (08:22)
[2018-12-09] MEDS: GABAPENTIN 300 MG PO SCH (19:09)
[2018-12-09] MEDS: ROPINIROLE 0.5 MG PO SCH (19:09)
[2018-12-09] MEDS: Melatonin 3 MG Tab PO SCH (19:09)
[2018-12-09] MEDS: WARFARIN PO SCH (19:11)
[2018-12-10] MEDS: Acetaminophen 325 MG Tab PO SCH ×4 (01:48→19:23)
[2018-12-10] MEDS: GABAPENTIN 100 MG PO SCH ×2 (07:41→12:02)
[2018-12-10] MEDS: Multivitamin, Stress Formula with Zinc Tab PO SCH (07:41)
[2018-12-10] MEDS: [UNRECOGNIZED DRUG - OTHER] PO SCH (07:42)
[2018-12-10] MEDS: Famotidine 20 MG Tab PO SCH (07:42)
[2018-12-10] MEDS: SERTRALINE 100 MG PO SCH (07:43)
[2018-12-10] MEDS: [UNRECOGNIZED DRUG - OTHER] PO SCH (07:43)
[2018-12-10] MEDS: Polyethylene Glycol 3350 Powder 17 GM Packet PO SCH (07:43)
[2018-12-10] MEDS: GABAPENTIN 300 MG PO SCH (19:22)
[2018-12-10] MEDS: Melatonin 3 MG Tab PO SCH (19:22)
[2018-12-10] MEDS: ROPINIROLE 0.5 MG PO SCH (19:23)
[2018-12-10] MEDS: [UNRECOGNIZED DRUG - OTHER] PO SCH (19:24)
[2018-12-11] MEDS: Acetaminophen 325 MG Tab PO SCH ×4 (01:21→19:36)
[2018-12-11] MEDS: GABAPENTIN 100 MG PO SCH ×2 (07:48→12:05)
[2018-12-11] MEDS: [UNRECOGNIZED DRUG - OTHER] PO SCH (07:49)
[2018-12-11] MEDS: Multivitamin, Stress Formula with Zinc Tab PO SCH (07:49)
[2018-12-11] MEDS: SERTRALINE 100 MG PO SCH (07:49)
[2018-12-11] MEDS: Famotidine 20 MG Tab PO SCH (07:49)
[2018-12-11] MEDS: [UNRECOGNIZED DRUG - OTHER] PO SCH (07:50)
[2018-12-11] MEDS: Polyethylene Glycol 3350 Powder 17 GM Packet PO SCH (07:50)
[2018-12-11] MEDS: GABAPENTIN 300 MG PO SCH (19:34)
[2018-12-11] MEDS: [UNRECOGNIZED DRUG - OTHER] PO SCH (19:35)
[2018-12-11] MEDS: ROPINIROLE 0.5 MG PO SCH (19:35)
[2018-12-11] MEDS: Melatonin 3 MG Tab PO SCH (19:36)
[2018-12-12] MEDS: Acetaminophen 325 MG Tab PO SCH ×4 (02:06→20:22)
[2018-12-12] MEDS: Famotidine 20 MG Tab PO SCH (07:52)
[2018-12-12] MEDS: Multivitamin, Stress Formula with Zinc Tab PO SCH (07:52)
[2018-12-12] MEDS: GABAPENTIN 100 MG PO SCH ×2 (07:53→12:49)
[2018-12-12] MEDS: SERTRALINE 100 MG PO SCH (07:53)
[2018-12-12] MEDS: [UNRECOGNIZED DRUG - OTHER] PO SCH (07:53)
[2018-12-12] MEDS: [UNRECOGNIZED DRUG - OTHER] PO SCH (07:53)
[2018-12-12] MEDS: Polyethylene Glycol 3350 Powder 17 GM Packet PO SCH (07:54)
[2018-12-12] MEDS: WARFARIN PO SCH (20:22)
[2018-12-12] MEDS: ROPINIROLE 0.5 MG PO SCH (20:22)
[2018-12-12] MEDS: Melatonin 3 MG Tab PO SCH (20:22)
[2018-12-12] MEDS: GABAPENTIN 300 MG PO SCH (20:23)
[2018-12-13] MEDS: Acetaminophen 325 MG Tab PO SCH ×4 (04:56→19:40)
[2018-12-13] MEDS: [UNRECOGNIZED DRUG - OTHER] PO SCH (07:39)
[2018-12-13] MEDS: Famotidine 20 MG Tab PO SCH (07:39)
[2018-12-13] MEDS: [UNRECOGNIZED DRUG - OTHER] PO SCH (07:39)
[2018-12-13] MEDS: SERTRALINE 100 MG PO SCH (07:39)
[2018-12-13] MEDS: GABAPENTIN 100 MG PO SCH ×2 (07:40→12:24)
[2018-12-13] MEDS: Multivitamin, Stress Formula with Zinc Tab PO SCH (07:40)
[2018-12-13] MEDS: Polyethylene Glycol 3350 Powder 17 GM Packet PO SCH (07:40)
[2018-12-13] MEDS: [UNRECOGNIZED DRUG - OTHER] PO SCH (19:40)
[2018-12-13] MEDS: Melatonin 3 MG Tab PO SCH (19:40)
[2018-12-13] MEDS: ROPINIROLE 0.5 MG PO SCH (19:40)
[2018-12-13] MEDS: GABAPENTIN 300 MG PO SCH (19:41)
[2018-12-14] MEDS: Acetaminophen 325 MG Tab PO SCH ×4 (02:18→19:49)
[2018-12-14] MEDS: [UNRECOGNIZED DRUG - OTHER] PO SCH (08:13)
[2018-12-14] MEDS: SERTRALINE 100 MG PO SCH (08:13)
[2018-12-14] MEDS: [UNRECOGNIZED DRUG - OTHER] PO SCH (08:14)
[2018-12-14] MEDS: Polyethylene Glycol 3350 Powder 17 GM Packet PO SCH (08:15)
[2018-12-14] MEDS: GABAPENTIN 100 MG PO SCH ×2 (08:15→12:33)
[2018-12-14] MEDS: Multivitamin, Stress Formula with Zinc Tab PO SCH (08:15)
[2018-12-14] MEDS: Famotidine 20 MG Tab PO SCH (08:15)
[2018-12-14] MEDS: GABAPENTIN 300 MG PO SCH (19:49)
[2018-12-14] MEDS: Melatonin 3 MG Tab PO SCH (19:49)
[2018-12-14] MEDS: [UNRECOGNIZED DRUG - OTHER] PO SCH (19:50)
[2018-12-14] MEDS: ROPINIROLE 0.5 MG PO SCH (19:50)
[2018-12-15] MEDS: Acetaminophen 325 MG Tab PO SCH ×4 (02:28→20:02)
[2018-12-15] MEDS: Multivitamin, Stress Formula with Zinc Tab PO SCH (08:27)
[2018-12-15] MEDS: SERTRALINE 100 MG PO SCH (08:28)
[2018-12-15] MEDS: Famotidine 20 MG Tab PO SCH (08:28)
[2018-12-15] MEDS: [UNRECOGNIZED DRUG - OTHER] PO SCH (08:28)
[2018-12-15] MEDS: [UNRECOGNIZED DRUG - OTHER] PO SCH (08:28)
[2018-12-15] MEDS: GABAPENTIN 100 MG PO SCH ×2 (08:29→12:32)
[2018-12-15] MEDS: Polyethylene Glycol 3350 Powder 17 GM Packet PO SCH (08:31)
[2018-12-15] MEDS: GABAPENTIN 300 MG PO SCH (20:01)
[2018-12-15] MEDS: ROPINIROLE 0.5 MG PO SCH (20:02)
[2018-12-15] MEDS: Melatonin 3 MG Tab PO SCH (20:03)
[2018-12-15] MEDS: [UNRECOGNIZED DRUG - OTHER] PO SCH (20:03)
[2018-12-16] MEDS: Acetaminophen 325 MG Tab PO SCH ×4 (02:37→20:06)
[2018-12-16] MEDS: SERTRALINE 100 MG PO SCH (08:04)
[2018-12-16] MEDS: Multivitamin, Stress Formula with Zinc Tab PO SCH (08:04)
[2018-12-16] MEDS: Famotidine 20 MG Tab PO SCH (08:04)
[2018-12-16] MEDS: [UNRECOGNIZED DRUG - OTHER] PO SCH (08:04)
[2018-12-16] MEDS: GABAPENTIN 100 MG PO SCH ×2 (08:05→12:39)
[2018-12-16] MEDS: Polyethylene Glycol 3350 Powder 17 GM Packet PO SCH (08:05)
[2018-12-16] MEDS: [UNRECOGNIZED DRUG - OTHER] PO SCH (08:05)
[2018-12-16] MEDS: GABAPENTIN 300 MG PO SCH (20:05)
[2018-12-16] MEDS: Melatonin 3 MG Tab PO SCH (20:06)
[2018-12-16] MEDS: WARFARIN PO SCH (20:07)
[2018-12-16] MEDS: ROPINIROLE 0.5 MG PO SCH (20:07)
[2018-12-17] MEDS: Acetaminophen 325 MG Tab PO SCH ×4 (03:10→19:40)
[2018-12-17] MEDS: [UNRECOGNIZED DRUG - OTHER] PO SCH (07:44)
[2018-12-17] MEDS: Famotidine 20 MG Tab PO SCH (07:44)
[2018-12-17] MEDS: [UNRECOGNIZED DRUG - OTHER] PO SCH (07:44)
[2018-12-17] MEDS: Multivitamin, Stress Formula with Zinc Tab PO SCH (07:44)
[2018-12-17] MEDS: SERTRALINE 100 MG PO SCH (07:44)
[2018-12-17] MEDS: GABAPENTIN 100 MG PO SCH ×2 (07:44→13:52)
[2018-12-17] MEDS: Polyethylene Glycol 3350 Powder 17 GM Packet PO SCH (07:44)
[2018-12-17] MEDS: [UNRECOGNIZED DRUG - OTHER] PO SCH (19:38)
[2018-12-17] MEDS: ROPINIROLE 0.5 MG PO SCH (19:38)
[2018-12-17] MEDS: GABAPENTIN 300 MG PO SCH (19:39)
[2018-12-17] MEDS: Melatonin 3 MG Tab PO SCH (19:40)
[2018-12-18] MEDS: Acetaminophen 325 MG Tab PO SCH ×4 (02:06→20:39)
[2018-12-18] MEDS: [UNRECOGNIZED DRUG - OTHER] PO SCH (08:16)
[2018-12-18] MEDS: [UNRECOGNIZED DRUG - OTHER] PO SCH (08:16)
[2018-12-18] MEDS: SERTRALINE 100 MG PO SCH (08:16)
[2018-12-18] MEDS: Multivitamin, Stress Formula with Zinc Tab PO SCH (08:17)
[2018-12-18] MEDS: GABAPENTIN 100 MG PO SCH ×2 (08:17→13:58)
[2018-12-18] MEDS: Polyethylene Glycol 3350 Powder 17 GM Packet PO SCH (08:17)
[2018-12-18] MEDS: Famotidine 20 MG Tab PO SCH (08:17)
[2018-12-18] MEDS: GABAPENTIN 300 MG PO SCH (20:38)
[2018-12-18] MEDS: Melatonin 3 MG Tab PO SCH (20:39)
[2018-12-18] MEDS: [UNRECOGNIZED DRUG - OTHER] PO SCH (20:39)
[2018-12-18] MEDS: ROPINIROLE 0.5 MG PO SCH (20:40)
[2018-12-19] MEDS: Acetaminophen 325 MG Tab PO SCH ×4 (01:25→20:10)
[2018-12-19] MEDS: GABAPENTIN 100 MG PO SCH ×2 (07:49→13:24)
[2018-12-19] MEDS: Multivitamin, Stress Formula with Zinc Tab PO SCH (07:50)
[2018-12-19] MEDS: Famotidine 20 MG Tab PO SCH (07:50)
[2018-12-19] MEDS: SERTRALINE 100 MG PO SCH (07:50)
[2018-12-19] MEDS: [UNRECOGNIZED DRUG - OTHER] PO SCH (07:50)
[2018-12-19] MEDS: [UNRECOGNIZED DRUG - OTHER] PO SCH (07:50)
[2018-12-19] MEDS: GABAPENTIN 300 MG PO SCH (20:09)
[2018-12-19] MEDS: ROPINIROLE 0.5 MG PO SCH (20:10)
[2018-12-19] MEDS: Melatonin 3 MG Tab PO SCH (20:10)
[2018-12-19] MEDS: WARFARIN PO SCH (20:11)
[2018-12-20] MEDS: Acetaminophen 325 MG Tab PO SCH ×4 (03:07→19:22)
[2018-12-20] MEDS: Famotidine 20 MG Tab PO SCH (08:16)
[2018-12-20] MEDS: [UNRECOGNIZED DRUG - OTHER] PO SCH (08:16)
[2018-12-20] MEDS: Multivitamin, Stress Formula with Zinc Tab PO SCH (08:16)
[2018-12-20] MEDS: [UNRECOGNIZED DRUG - OTHER] PO SCH (08:16)
[2018-12-20] MEDS: GABAPENTIN 100 MG PO SCH ×2 (08:16→12:04)
[2018-12-20] MEDS: SERTRALINE 100 MG PO SCH (08:16)
[2018-12-20] MEDS: GABAPENTIN 300 MG PO SCH (19:22)
[2018-12-20] MEDS: [UNRECOGNIZED DRUG - OTHER] PO SCH (19:23)
[2018-12-20] MEDS: ROPINIROLE 0.5 MG PO SCH (19:23)
[2018-12-20] MEDS: Melatonin 3 MG Tab PO SCH (19:24)
[2018-12-21] MEDS: Acetaminophen 325 MG Tab PO SCH ×4 (02:41→19:34)
[2018-12-21] MEDS: SERTRALINE 100 MG PO SCH (08:30)
[2018-12-21] MEDS: [UNRECOGNIZED DRUG - OTHER] PO SCH (08:31)
[2018-12-21] MEDS: GABAPENTIN 100 MG PO SCH ×2 (08:31→12:28)
[2018-12-21] MEDS: [UNRECOGNIZED DRUG - OTHER] PO SCH (08:31)
[2018-12-21] MEDS: Multivitamin, Stress Formula with Zinc Tab PO SCH (08:34)
[2018-12-21] MEDS: Famotidine 20 MG Tab PO SCH (08:34)
[2018-12-21] MEDS: ROPINIROLE 0.5 MG PO SCH (19:34)
[2018-12-21] MEDS: GABAPENTIN 300 MG PO SCH (19:35)
[2018-12-21] MEDS: Melatonin 3 MG Tab PO SCH (19:35)
[2018-12-21] MEDS: [UNRECOGNIZED DRUG - OTHER] PO SCH (19:40)
[2018-12-22] MEDS: Acetaminophen 325 MG Tab PO SCH ×4 (02:43→19:25)
[2018-12-22] MEDS: GABAPENTIN 100 MG PO SCH ×2 (07:34→14:11)
[2018-12-22] MEDS: [UNRECOGNIZED DRUG - OTHER] PO SCH (07:35)
[2018-12-22] MEDS: SERTRALINE 100 MG PO SCH (07:35)
[2018-12-22] MEDS: [UNRECOGNIZED DRUG - OTHER] PO SCH (07:35)
[2018-12-22] MEDS: Multivitamin, Stress Formula with Zinc Tab PO SCH (07:36)
[2018-12-22] MEDS: Famotidine 20 MG Tab PO SCH (07:36)
[2018-12-22] MEDS: ROPINIROLE 0.5 MG PO SCH (19:25)
[2018-12-22] MEDS: Melatonin 3 MG Tab PO SCH (19:25)
[2018-12-22] MEDS: [UNRECOGNIZED DRUG - OTHER] PO SCH (19:26)
[2018-12-22] MEDS: GABAPENTIN 300 MG PO SCH (19:26)
[2018-12-23] MEDS: Acetaminophen 325 MG Tab PO SCH ×4 (02:30→19:31)
[2018-12-23] MEDS: GABAPENTIN 100 MG PO SCH ×2 (07:37→12:14)
[2018-12-23] MEDS: SERTRALINE 100 MG PO SCH (07:38)
[2018-12-23] MEDS: Multivitamin, Stress Formula with Zinc Tab PO SCH (07:38)
[2018-12-23] MEDS: [UNRECOGNIZED DRUG - OTHER] PO SCH (07:39)
[2018-12-23] MEDS: [UNRECOGNIZED DRUG - OTHER] PO SCH (07:39)
[2018-12-23] MEDS: Famotidine 20 MG Tab PO SCH (07:39)
[2018-12-23] MEDS: ROPINIROLE 0.5 MG PO SCH (19:31)
[2018-12-23] MEDS: WARFARIN PO SCH (19:31)
[2018-12-23] MEDS: Melatonin 3 MG Tab PO SCH (19:32)
[2018-12-23] MEDS: GABAPENTIN 300 MG PO SCH (19:32)
[2018-12-24] MEDS: Acetaminophen 325 MG Tab PO SCH ×4 (02:07→19:23)
[2018-12-24] MEDS: Multivitamin, Stress Formula with Zinc Tab PO SCH (08:25)
[2018-12-24] MEDS: Famotidine 20 MG Tab PO SCH (08:25)
[2018-12-24] MEDS: [UNRECOGNIZED DRUG - OTHER] PO SCH (08:25)
[2018-12-24] MEDS: GABAPENTIN 100 MG PO SCH ×2 (08:25→14:08)
[2018-12-24] MEDS: [UNRECOGNIZED DRUG - OTHER] PO SCH (08:26)
[2018-12-24] MEDS: SERTRALINE 100 MG PO SCH (08:26)
[2018-12-24] MEDS: ROPINIROLE 0.5 MG PO SCH (19:23)
[2018-12-24] MEDS: Melatonin 3 MG Tab PO SCH (19:23)
[2018-12-24] MEDS: [UNRECOGNIZED DRUG - OTHER] PO SCH (19:24)
[2018-12-24] MEDS: GABAPENTIN 300 MG PO SCH (19:24)
[2018-12-25] MEDS: Acetaminophen 325 MG Tab PO SCH ×4 (02:28→19:26)
[2018-12-25] MEDS: GABAPENTIN 100 MG PO SCH ×2 (07:35→13:04)
[2018-12-25] MEDS: SERTRALINE 100 MG PO SCH (07:37)
[2018-12-25] MEDS: [UNRECOGNIZED DRUG - OTHER] PO SCH (07:37)
[2018-12-25] MEDS: [UNRECOGNIZED DRUG - OTHER] PO SCH (07:37)
[2018-12-25] MEDS: Multivitamin, Stress Formula with Zinc Tab PO SCH (07:38)
[2018-12-25] MEDS: Famotidine 20 MG Tab PO SCH (07:38)
[2018-12-25] MEDS: GABAPENTIN 300 MG PO SCH (19:20)
[2018-12-25] MEDS: ROPINIROLE 0.5 MG PO SCH (19:26)
[2018-12-25] MEDS: [UNRECOGNIZED DRUG - OTHER] PO SCH (19:26)
[2018-12-25] MEDS: Melatonin 3 MG Tab PO SCH (19:27)
[2018-12-26] MEDS: Acetaminophen 325 MG Tab PO SCH ×4 (02:30→19:55)
[2018-12-26] MEDS: Multivitamin, Stress Formula with Zinc Tab PO SCH (07:48)
[2018-12-26] MEDS: Famotidine 20 MG Tab PO SCH (07:48)
[2018-12-26] MEDS: [UNRECOGNIZED DRUG - OTHER] PO SCH (07:48)
[2018-12-26] MEDS: SERTRALINE 100 MG PO SCH (07:49)
[2018-12-26] MEDS: [UNRECOGNIZED DRUG - OTHER] PO SCH (07:49)
[2018-12-26] MEDS: GABAPENTIN 100 MG PO SCH ×2 (07:49→14:28)
[2018-12-26] MEDS: Melatonin 3 MG Tab PO SCH (19:55)
[2018-12-26] MEDS: GABAPENTIN 300 MG PO SCH (19:55)
[2018-12-26] MEDS: WARFARIN PO SCH (19:56)
[2018-12-26] MEDS: ROPINIROLE 0.5 MG PO SCH (19:56)
[2018-12-27] MEDS: Acetaminophen 325 MG Tab PO SCH ×4 (04:38→20:11)
[2018-12-27] MEDS: GABAPENTIN 100 MG PO SCH ×2 (08:44→12:13)
[2018-12-27] MEDS: [UNRECOGNIZED DRUG - OTHER] PO SCH (08:44)
[2018-12-27] MEDS: Multivitamin, Stress Formula with Zinc Tab PO SCH (08:44)
[2018-12-27] MEDS: SERTRALINE 100 MG PO SCH (08:44)
[2018-12-27] MEDS: [UNRECOGNIZED DRUG - OTHER] PO SCH (08:44)
[2018-12-27] MEDS: Famotidine 20 MG Tab PO SCH (08:44)
[2018-12-27] MEDS: ROPINIROLE 0.5 MG PO SCH (20:11)
[2018-12-27] MEDS: Melatonin 3 MG Tab PO SCH (20:11)
[2018-12-27] MEDS: GABAPENTIN 300 MG PO SCH (20:11)
[2018-12-27] MEDS: [UNRECOGNIZED DRUG - OTHER] PO SCH (20:11)
[2018-12-28] MEDS: Acetaminophen 325 MG Tab PO SCH ×4 (03:58→21:44)
[2018-12-28] MEDS: GABAPENTIN 100 MG PO SCH ×2 (09:21→12:22)
[2018-12-28] MEDS: Multivitamin, Stress Formula with Zinc Tab PO SCH (09:21)
[2018-12-28] MEDS: Famotidine 20 MG Tab PO SCH (09:22)
[2018-12-28] MEDS: [UNRECOGNIZED DRUG - OTHER] PO SCH (09:22)
[2018-12-28] MEDS: [UNRECOGNIZED DRUG - OTHER] PO SCH (09:22)
[2018-12-28] MEDS: SERTRALINE 100 MG PO SCH (09:22)
[2018-12-28] MEDS: NITROGLYCERIN 0.4 MG SL PRN ×2 (18:13→18:18)
[2018-12-28] MEDS: ROPINIROLE 0.5 MG PO SCH (21:45)
[2018-12-28] MEDS: GABAPENTIN 300 MG PO SCH (21:45)
[2018-12-28] MEDS: Melatonin 3 MG Tab PO SCH (21:45)
[2018-12-28] MEDS: [UNRECOGNIZED DRUG - OTHER] PO SCH (21:46)
[2018-12-28] MEDS: Calcium Carbonate 750 MG Tab.Chew PO PRN (21:47)
[2018-12-29] MEDS: Acetaminophen 325 MG Tab PO SCH ×4 (03:40→19:57)
[2018-12-29] MEDS: [UNRECOGNIZED DRUG - OTHER] PO SCH (08:26)
[2018-12-29] MEDS: GABAPENTIN 100 MG PO SCH ×2 (08:26→13:40)
[2018-12-29] MEDS: Multivitamin, Stress Formula with Zinc Tab PO SCH (08:26)
[2018-12-29] MEDS: Calcium Carbonate 750 MG Tab.Chew PO PRN (08:26)
[2018-12-29] MEDS: Famotidine 20 MG Tab PO SCH (08:26)
[2018-12-29] MEDS: [UNRECOGNIZED DRUG - OTHER] PO SCH (08:27)
[2018-12-29] MEDS: SERTRALINE 100 MG PO SCH (08:27)
[2018-12-29] MEDS: [UNRECOGNIZED DRUG - OTHER] PO SCH (19:57)
[2018-12-29] MEDS: ROPINIROLE 0.5 MG PO SCH (19:57)
[2018-12-29] MEDS: Melatonin 3 MG Tab PO SCH (19:57)
[2018-12-29] MEDS: GABAPENTIN 300 MG PO SCH (19:57)
[2018-12-30] MEDS: Acetaminophen 325 MG Tab PO SCH ×4 (02:18→20:48)
[2018-12-30] MEDS: GABAPENTIN 100 MG PO SCH ×2 (08:47→12:55)
[2018-12-30] MEDS: Multivitamin, Stress Formula with Zinc Tab PO SCH (08:48)
[2018-12-30] MEDS: [UNRECOGNIZED DRUG - OTHER] PO SCH (08:48)
[2018-12-30] MEDS: SERTRALINE 100 MG PO SCH (08:48)
[2018-12-30] MEDS: Famotidine 20 MG Tab PO SCH (08:48)
[2018-12-30] MEDS: [UNRECOGNIZED DRUG - OTHER] PO SCH (08:49)
[2018-12-30] MEDS: ROPINIROLE 0.5 MG PO SCH (20:48)
[2018-12-30] MEDS: Melatonin 3 MG Tab PO SCH (20:48)
[2018-12-30] MEDS: WARFARIN PO SCH (20:49)
[2018-12-30] MEDS: GABAPENTIN 300 MG PO SCH (20:50)
[2018-12-31] MEDS: Acetaminophen 325 MG Tab PO SCH ×4 (02:38→19:31)
[2018-12-31] MEDS: SERTRALINE 100 MG PO SCH (08:36)
[2018-12-31] MEDS: Calcium Carbonate 750 MG Tab.Chew PO PRN (08:36)
[2018-12-31] MEDS: GABAPENTIN 100 MG PO SCH ×2 (08:36→13:48)
[2018-12-31] MEDS: [UNRECOGNIZED DRUG - OTHER] PO SCH (08:36)
[2018-12-31] MEDS: Multivitamin, Stress Formula with Zinc Tab PO SCH (08:36)
[2018-12-31] MEDS: [UNRECOGNIZED DRUG - OTHER] PO SCH (08:36)
[2018-12-31] MEDS: Famotidine 20 MG Tab PO SCH (08:36)
[2018-12-31] MEDS: Melatonin 3 MG Tab PO SCH (19:31)
[2018-12-31] MEDS: GABAPENTIN 300 MG PO SCH (19:31)
[2018-12-31] MEDS: [UNRECOGNIZED DRUG - OTHER] PO SCH (19:32)
[2018-12-31] MEDS: ROPINIROLE 0.5 MG PO SCH (19:32)
[2019-01-01] MEDS: Acetaminophen 325 MG Tab PO SCH ×4 (02:42→20:01)
[2019-01-01] MEDS: GABAPENTIN 100 MG PO SCH ×2 (09:54→12:49)
[2019-01-01] MEDS: SERTRALINE 100 MG PO SCH (09:54)
[2019-01-01] MEDS: Famotidine 20 MG Tab PO SCH (09:55)
[2019-01-01] MEDS: [UNRECOGNIZED DRUG - OTHER] PO SCH (09:55)
[2019-01-01] MEDS: [UNRECOGNIZED DRUG - OTHER] PO SCH (09:55)
[2019-01-01] MEDS: Multivitamin, Stress Formula with Zinc Tab PO SCH (09:55)
[2019-01-01] MEDS: Melatonin 3 MG Tab PO SCH (20:02)
[2019-01-01] MEDS: GABAPENTIN 300 MG PO SCH (20:02)
[2019-01-01] MEDS: Calcium Carbonate 750 MG Tab.Chew PO PRN (20:03)
[2019-01-01] MEDS: ROPINIROLE 0.5 MG PO SCH (20:03)
[2019-01-01] MEDS: [UNRECOGNIZED DRUG - OTHER] PO SCH (20:03)
[2019-01-02] MEDS: Acetaminophen 325 MG Tab PO SCH ×4 (04:05→19:10)
[2019-01-02] MEDS: [UNRECOGNIZED DRUG - OTHER] PO SCH (08:15)
[2019-01-02] MEDS: SERTRALINE 100 MG PO SCH (08:15)
[2019-01-02] MEDS: [UNRECOGNIZED DRUG - OTHER] PO SCH (08:15)
[2019-01-02] MEDS: Multivitamin, Stress Formula with Zinc Tab PO SCH (08:15)
[2019-01-02] MEDS: Famotidine 20 MG Tab PO SCH (08:15)
[2019-01-02] MEDS: GABAPENTIN 100 MG PO SCH ×2 (08:15→13:57)
[2019-01-02] MEDS: GABAPENTIN 300 MG PO SCH (19:09)
[2019-01-02] MEDS: Melatonin 3 MG Tab PO SCH (19:10)
[2019-01-02] MEDS: ROPINIROLE 0.5 MG PO SCH (19:10)
[2019-01-02] MEDS: WARFARIN PO SCH (19:11)
[2019-01-03] MEDS: Acetaminophen 325 MG Tab PO SCH ×4 (03:44→20:09)
[2019-01-03] MEDS: [UNRECOGNIZED DRUG - OTHER] PO SCH (08:57)
[2019-01-03] MEDS: GABAPENTIN 100 MG PO SCH ×2 (08:57→13:30)
[2019-01-03] MEDS: Multivitamin, Stress Formula with Zinc Tab PO SCH (08:57)
[2019-01-03] MEDS: SERTRALINE 100 MG PO SCH (08:57)
[2019-01-03] MEDS: [UNRECOGNIZED DRUG - OTHER] PO SCH (08:57)
[2019-01-03] MEDS: Famotidine 20 MG Tab PO SCH (08:57)
[2019-01-03] MEDS: Melatonin 3 MG Tab PO SCH (20:09)
[2019-01-03] MEDS: [UNRECOGNIZED DRUG - OTHER] PO SCH (20:10)
[2019-01-03] MEDS: ROPINIROLE 0.5 MG PO SCH (20:10)
[2019-01-03] MEDS: GABAPENTIN 300 MG PO SCH (20:11)
[2019-01-04] MEDS: Acetaminophen 325 MG Tab PO SCH ×4 (02:41→20:19)
[2019-01-04] MEDS: Multivitamin, Stress Formula with Zinc Tab PO SCH (10:11)
[2019-01-04] MEDS: Famotidine 20 MG Tab PO SCH (10:11)
[2019-01-04] MEDS: GABAPENTIN 100 MG PO SCH ×2 (10:12→12:14)
[2019-01-04] MEDS: [UNRECOGNIZED DRUG - OTHER] PO SCH (10:13)
[2019-01-04] MEDS: SERTRALINE 100 MG PO SCH (10:14)
[2019-01-04] MEDS: [UNRECOGNIZED DRUG - OTHER] PO SCH (10:14)
[2019-01-04] MEDS: Melatonin 3 MG Tab PO SCH (20:19)
[2019-01-04] MEDS: GABAPENTIN 300 MG PO SCH (20:19)
[2019-01-04] MEDS: ROPINIROLE 0.5 MG PO SCH (20:20)
[2019-01-04] MEDS: [UNRECOGNIZED DRUG - OTHER] PO SCH (20:20)
[2019-01-05] MEDS: Acetaminophen 325 MG Tab PO SCH ×4 (02:38→19:45)
[2019-01-05] MEDS: [UNRECOGNIZED DRUG - OTHER] PO SCH (09:29)
[2019-01-05] MEDS: Famotidine 20 MG Tab PO SCH (09:29)
[2019-01-05] MEDS: Multivitamin, Stress Formula with Zinc Tab PO SCH (09:29)
[2019-01-05] MEDS: GABAPENTIN 100 MG PO SCH ×2 (09:30→12:30)
[2019-01-05] MEDS: SERTRALINE 100 MG PO SCH (09:30)
[2019-01-05] MEDS: [UNRECOGNIZED DRUG - OTHER] PO SCH (09:30)
[2019-01-05] MEDS: GABAPENTIN 300 MG PO SCH (19:43)
[2019-01-05] MEDS: ROPINIROLE 0.5 MG PO SCH (19:44)
[2019-01-05] MEDS: [UNRECOGNIZED DRUG - OTHER] PO SCH (19:44)
[2019-01-05] MEDS: Melatonin 3 MG Tab PO SCH (19:45)
[2019-01-06] MEDS: Acetaminophen 325 MG Tab PO SCH ×4 (03:00→19:41)
[2019-01-06] MEDS: [UNRECOGNIZED DRUG - OTHER] PO SCH (08:24)
[2019-01-06] MEDS: SERTRALINE 100 MG PO SCH (08:25)
[2019-01-06] MEDS: Famotidine 20 MG Tab PO SCH (08:26)
[2019-01-06] MEDS: Multivitamin, Stress Formula with Zinc Tab PO SCH (08:28)
[2019-01-06] MEDS: GABAPENTIN 100 MG PO SCH ×2 (08:28→13:04)
[2019-01-06] MEDS: [UNRECOGNIZED DRUG - OTHER] PO SCH (08:35)
[2019-01-06] MEDS: Calcium Carbonate 750 MG Tab.Chew PO PRN (18:18)
[2019-01-06] MEDS: ROPINIROLE 0.5 MG PO SCH (19:41)
[2019-01-06] MEDS: Melatonin 3 MG Tab PO SCH (19:41)
[2019-01-06] MEDS: GABAPENTIN 300 MG PO SCH (19:42)
[2019-01-06] MEDS: WARFARIN PO SCH (19:42)
[2019-01-07] MEDS: Acetaminophen 325 MG Tab PO SCH ×4 (01:45→20:05)
[2019-01-07] MEDS: GABAPENTIN 100 MG PO SCH ×2 (07:55→12:30)
[2019-01-07] MEDS: [UNRECOGNIZED DRUG - OTHER] PO SCH (07:56)
[2019-01-07] MEDS: SERTRALINE 100 MG PO SCH (07:56)
[2019-01-07] MEDS: [UNRECOGNIZED DRUG - OTHER] PO SCH (07:56)
[2019-01-07] MEDS: Multivitamin, Stress Formula with Zinc Tab PO SCH (08:01)
[2019-01-07] MEDS: Famotidine 20 MG Tab PO SCH (12:29)
[2019-01-07] MEDS: GABAPENTIN 300 MG PO SCH (20:03)
[2019-01-07] MEDS: [UNRECOGNIZED DRUG - OTHER] PO SCH (20:05)
[2019-01-07] MEDS: ROPINIROLE 0.5 MG PO SCH (20:05)
[2019-01-07] MEDS: Melatonin 3 MG Tab PO SCH (20:06)
[2019-01-08] MEDS: Acetaminophen 325 MG Tab PO SCH ×4 (02:37→19:21)
[2019-01-08] MEDS: Famotidine 20 MG Tab PO SCH (08:40)
[2019-01-08] MEDS: GABAPENTIN 100 MG PO SCH ×2 (08:40→12:24)
[2019-01-08] MEDS: Multivitamin, Stress Formula with Zinc Tab PO SCH (08:40)
[2019-01-08] MEDS: [UNRECOGNIZED DRUG - OTHER] PO SCH (08:41)
[2019-01-08] MEDS: [UNRECOGNIZED DRUG - OTHER] PO SCH (08:41)
[2019-01-08] MEDS: SERTRALINE 100 MG PO SCH (08:41)
[2019-01-08] MEDS: GABAPENTIN 300 MG PO SCH (19:21)
[2019-01-08] MEDS: Melatonin 3 MG Tab PO SCH (19:22)
[2019-01-08] MEDS: [UNRECOGNIZED DRUG - OTHER] PO SCH (19:22)
[2019-01-08] MEDS: ROPINIROLE 0.5 MG PO SCH (19:22)
[2019-01-09] MEDS: Acetaminophen 325 MG Tab PO SCH ×4 (02:45→19:31)
[2019-01-09] MEDS: SERTRALINE 100 MG PO SCH (08:09)
[2019-01-09] MEDS: [UNRECOGNIZED DRUG - OTHER] PO SCH (08:09)
[2019-01-09] MEDS: [UNRECOGNIZED DRUG - OTHER] PO SCH (08:09)
[2019-01-09] MEDS: GABAPENTIN 100 MG PO SCH ×2 (08:09→12:51)
[2019-01-09] MEDS: Famotidine 20 MG Tab PO SCH (08:10)
[2019-01-09] MEDS: Multivitamin, Stress Formula with Zinc Tab PO SCH (08:10)
[2019-01-09] MEDS: GABAPENTIN 300 MG PO SCH (19:29)
[2019-01-09] MEDS: ROPINIROLE 0.5 MG PO SCH (19:30)
[2019-01-09] MEDS: WARFARIN PO SCH (19:31)
[2019-01-09] MEDS: Melatonin 3 MG Tab PO SCH (19:31)
[2019-01-10] MEDS: Acetaminophen 325 MG Tab PO SCH ×4 (02:42→19:31)
[2019-01-10] MEDS: Multivitamin, Stress Formula with Zinc Tab PO SCH (08:07)
[2019-01-10] MEDS: Famotidine 20 MG Tab PO SCH (08:07)
[2019-01-10] MEDS: SERTRALINE 100 MG PO SCH (08:07)
[2019-01-10] MEDS: [UNRECOGNIZED DRUG - OTHER] PO SCH (08:07)
[2019-01-10] MEDS: [UNRECOGNIZED DRUG - OTHER] PO SCH (08:07)
[2019-01-10] MEDS: GABAPENTIN 100 MG PO SCH ×2 (08:07→12:50)
[2019-01-10] MEDS: GABAPENTIN 300 MG PO SCH (19:30)
[2019-01-10] MEDS: ROPINIROLE 0.5 MG PO SCH (19:31)
[2019-01-10] MEDS: Melatonin 3 MG Tab PO SCH (19:31)
[2019-01-10] MEDS: [UNRECOGNIZED DRUG - OTHER] PO SCH (19:31)
[2019-01-11] MEDS: Acetaminophen 325 MG Tab PO SCH ×4 (03:47→19:42)
[2019-01-11] MEDS: [UNRECOGNIZED DRUG - OTHER] PO SCH (07:56)
[2019-01-11] MEDS: SERTRALINE 100 MG PO SCH (07:56)
[2019-01-11] MEDS: Famotidine 20 MG Tab PO SCH (07:57)
[2019-01-11] MEDS: [UNRECOGNIZED DRUG - OTHER] PO SCH (07:57)
[2019-01-11] MEDS: Multivitamin, Stress Formula with Zinc Tab PO SCH (07:58)
[2019-01-11] MEDS: GABAPENTIN 100 MG PO SCH ×2 (07:58→15:14)
[2019-01-11] MEDS: Melatonin 3 MG Tab PO SCH (19:42)
[2019-01-11] MEDS: ROPINIROLE 0.5 MG PO SCH (19:42)
[2019-01-11] MEDS: [UNRECOGNIZED DRUG - OTHER] PO SCH (19:42)
[2019-01-11] MEDS: GABAPENTIN 300 MG PO SCH (19:42)
[2019-01-12] MEDS: Acetaminophen 325 MG Tab PO SCH ×4 (04:32→19:12)
[2019-01-12] MEDS: [UNRECOGNIZED DRUG - OTHER] PO SCH (07:51)
[2019-01-12] MEDS: SERTRALINE 100 MG PO SCH (07:51)
[2019-01-12] MEDS: [UNRECOGNIZED DRUG - OTHER] PO SCH (07:52)
[2019-01-12] MEDS: GABAPENTIN 100 MG PO SCH ×2 (07:52→12:25)
[2019-01-12] MEDS: Famotidine 20 MG Tab PO SCH (07:52)
[2019-01-12] MEDS: Multivitamin, Stress Formula with Zinc Tab PO SCH (07:52)
[2019-01-12] MEDS: GABAPENTIN 300 MG PO SCH (19:11)
[2019-01-12] MEDS: ROPINIROLE 0.5 MG PO SCH (19:12)
[2019-01-12] MEDS: [UNRECOGNIZED DRUG - OTHER] PO SCH (19:12)
[2019-01-12] MEDS: Melatonin 3 MG Tab PO SCH (19:12)
[2019-01-13] MEDS: Acetaminophen 325 MG Tab PO SCH ×4 (02:32→19:51)
[2019-01-13] MEDS: SERTRALINE 100 MG PO SCH (07:41)
[2019-01-13] MEDS: [UNRECOGNIZED DRUG - OTHER] PO SCH (07:41)
[2019-01-13] MEDS: [UNRECOGNIZED DRUG - OTHER] PO SCH (07:41)
[2019-01-13] MEDS: GABAPENTIN 100 MG PO SCH ×2 (07:42→12:02)
[2019-01-13] MEDS: Multivitamin, Stress Formula with Zinc Tab PO SCH (07:42)
[2019-01-13] MEDS: Famotidine 20 MG Tab PO SCH (07:42)
[2019-01-13] MEDS: GABAPENTIN 300 MG PO SCH (19:49)
[2019-01-13] MEDS: Melatonin 3 MG Tab PO SCH (19:51)
[2019-01-13] MEDS: ROPINIROLE 0.5 MG PO SCH (19:51)
[2019-01-13] MEDS: WARFARIN PO SCH (19:51)
[2019-01-14] MEDS: Acetaminophen 325 MG Tab PO SCH ×4 (02:41→19:40)
[2019-01-14] MEDS: Multivitamin, Stress Formula with Zinc Tab PO SCH (08:12)
[2019-01-14] MEDS: GABAPENTIN 100 MG PO SCH ×2 (08:12→13:25)
[2019-01-14] MEDS: [UNRECOGNIZED DRUG - OTHER] PO SCH (08:12)
[2019-01-14] MEDS: Famotidine 20 MG Tab PO SCH (08:12)
[2019-01-14] MEDS: SERTRALINE 100 MG PO SCH (08:12)
[2019-01-14] MEDS: [UNRECOGNIZED DRUG - OTHER] PO SCH (08:12)
[2019-01-14] MEDS: GABAPENTIN 300 MG PO SCH (19:38)
[2019-01-14] MEDS: [UNRECOGNIZED DRUG - OTHER] PO SCH (19:39)
[2019-01-14] MEDS: ROPINIROLE 0.5 MG PO SCH (19:39)
[2019-01-14] MEDS: Melatonin 3 MG Tab PO SCH (19:40)
[2019-01-15] MEDS: Acetaminophen 325 MG Tab PO SCH ×4 (02:40→19:17)
[2019-01-15] MEDS: Famotidine 20 MG Tab PO SCH (07:57)
[2019-01-15] MEDS: [UNRECOGNIZED DRUG - OTHER] PO SCH (07:58)
[2019-01-15] MEDS: SERTRALINE 100 MG PO SCH (07:58)
[2019-01-15] MEDS: Multivitamin, Stress Formula with Zinc Tab PO SCH (07:58)
[2019-01-15] MEDS: GABAPENTIN 100 MG PO SCH ×2 (07:58→14:11)
[2019-01-15] MEDS: [UNRECOGNIZED DRUG - OTHER] PO SCH (07:59)
[2019-01-15] MEDS: Melatonin 3 MG Tab PO SCH (19:17)
[2019-01-15] MEDS: GABAPENTIN 300 MG PO SCH (19:18)
[2019-01-15] MEDS: [UNRECOGNIZED DRUG - OTHER] PO SCH (19:18)
[2019-01-15] MEDS: ROPINIROLE 0.5 MG PO SCH (19:19)
[2019-01-16] MEDS: Acetaminophen 325 MG Tab PO SCH ×4 (02:30→20:14)
[2019-01-16] MEDS: [UNRECOGNIZED DRUG - OTHER] PO SCH (08:27)
[2019-01-16] MEDS: SERTRALINE 100 MG PO SCH (08:27)
[2019-01-16] MEDS: [UNRECOGNIZED DRUG - OTHER] PO SCH (08:27)
[2019-01-16] MEDS: Famotidine 20 MG Tab PO SCH (08:28)
[2019-01-16] MEDS: GABAPENTIN 100 MG PO SCH ×2 (08:28→12:17)
[2019-01-16] MEDS: Multivitamin, Stress Formula with Zinc Tab PO SCH (08:28)
--- NOTE | 2019-01-16 15:15 | PCM.PN ---
- General Info Date of Service: 01/16/19 Admission Dx/Problem (Free Text): Subjective: 60 day note for long-term care swing bed patient. She has no complaints. She's amply in the halls going to bathroom doing meals and toileting without difficulty. She enjoys living here. She's getting outside once in a while. Son visits occasionally. Not interested in another residential placement at this time. Objective: Vital signs stable, sitting in chair, smiling happy. Watching TV, reading her book. Heart and lungs clear to auscultation. Assessment and plan: No issues. Continue long-term care plan. Discussed other facilities could be an option in the future if wanted. - Patient Data Vitals - Most Recent: Last Vital Signs Temp 36.2 C 01/10/19 16:39 Pulse 73 01/10/19 16:39 Resp 20 01/10/19 16:39 BP 102/44 L 01/10/19 16:39 Pulse Ox 93 L 01/14/19 08:09 Weight - Most Recent: 83.461 kg I&O - Last 24 Hours: Intake & Output 01/16/19 01/16/19 01/16/19 06:59 14:59 22:59 Intake Total 300 Balance 300 Med Orders - Current: Current Medications Acetaminophen (Tylenol) 650 mg PO 0200,0800,1300,2000 [facility] Last Admin: 01/16/19 12:16 Dose: 650 mg Calcium Carbonate/Glycine (Tums Extra Strength) 750 mg PO TID PRN PRN Reason: Dyspepsia Last Admin: 01/06/19 18:18 Dose: 750 mg Docusate Sodium (Colace) 100 mg PO DAILY PRN PRN Reason: Constipation Famotidine (Pepcid) 20 mg PO DAILY [facility] Last Admin: 01/16/19 08:28 Dose: 20 mg Furosemide (Lasix) 20 mg PO DAILY [facility] Last Admin: 01/16/19 08:27 Dose: 20 mg Gabapentin (Neurontin) 100 mg PO BID@0800,1300 [facility] Last Admin: 01/16/19 12:17 Dose: 100 mg Melatonin (Melatonin) 6 mg PO BEDTIME [facility] Last Admin: 01/15/19 19:17 Dose: 6 mg Nitroglycerin (Nitrostat) 0.4 mg SL Q5M PRN PRN Reason: Chest Pain Last Admin: 12/28/18 18:18 Dose: 0.4 mg Own Supply: Warfarin 2.5mg (1/2 Of 5mg Tab) 0 mg PO MoTh@1999 [facility] Last Admin: 01/13/19 19:51 Dose: 2.5 mg Own Supply: Warfarin (. 5mg) 0 mg PO SuTuWeFrSa@1999 [facility] Last Admin: 01/15/19 19:18 Dose: 5 mg Own Supply: (Gabapentin. 300mg) 0 mg PO BEDTIME [facility] Last Admin: 01/15/19 19:18 Dose: 300 mg Own Supply: (Metoprolol.Er 25mg) 0 mg PO DAILY [facility] Last Admin: 01/16/19 08:27 Dose: 25 mg Pharmacy Consult (Consult To Pharmacy) 1 each .XX ASDIRECTED [facility] Polyethylene Glycol (Miralax) 17 gm PO DAILY PRN PRN Reason: Constipation Ropinirole HCl (Requip) 0.5 mg PO BEDTIME [facility] Last Admin: 01/15/19 19:19 Dose: 0.5 mg Senna/Docusate Sodium (Senna Plus) 1 tab PO DAILY PRN PRN Reason: Constipation Sertraline HCl (Zoloft) 100 mg PO DAILY [facility] Last Admin: 01/16/19 08:27 Dose: 100 mg Vitamin B Complex/Vit C/Vit E/Zinc (Stress Formula With Zinc) 1 tab PO DAILY [facility] Last Admin: 01/16/19 08:28 Dose: 1 tab Discontinued Medications Polyethylene Glycol (Miralax) 17 gm PO DAILY [facility] Last Admin: 12/18/18 08:17 Dose: Not Given - Problem List Review Problem List Initiated/Reviewed/Updated: Yes - My Orders Last 24 Hours: My Active Orders 01/24/19 07:00 INR,PT,PROTHROMBIN TIME [COAG] Q28D 02/21/19 07:00 INR,PT,PROTHROMBIN TIME [COAG] Q28D
[2019-01-16] MEDS: GABAPENTIN 300 MG PO SCH (20:11)
[2019-01-16] MEDS: WARFARIN PO SCH (20:12)
[2019-01-16] MEDS: ROPINIROLE 0.5 MG PO SCH (20:13)
[2019-01-16] MEDS: Melatonin 3 MG Tab PO SCH (20:13)
[2019-01-17] MEDS: Acetaminophen 325 MG Tab PO SCH ×4 (02:48→20:11)
[2019-01-17] MEDS: Multivitamin, Stress Formula with Zinc Tab PO SCH (08:55)
[2019-01-17] MEDS: Famotidine 20 MG Tab PO SCH (08:55)
[2019-01-17] MEDS: GABAPENTIN 100 MG PO SCH ×2 (08:55→13:00)
[2019-01-17] MEDS: [UNRECOGNIZED DRUG - OTHER] PO SCH (08:56)
[2019-01-17] MEDS: [UNRECOGNIZED DRUG - OTHER] PO SCH (08:57)
[2019-01-17] MEDS: SERTRALINE 100 MG PO SCH (08:57)
--- NOTE | 2019-01-17 15:50 | PCM.PN ---
- General Info Date of Service: 11/12/18 Admission Dx/Problem (Free Text): Subjective: Interim long-term care note. No changes in health status. 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 Mood is stable on antidepressant. Eating and stooling normally. No gross cognitive defects. Objective: Vital signs remain normal. Her weight is unchanged. Alert oriented smiling no distress. Heart and lungs are clear abdomen soft nontender extremities warm well perfused without edema or tenderness. Assessment and plan: Doing well. Anticoagulated for history of DVT, mood stable on antidepressant, blood pressures controlled, gabapentin for history of neuropathy. - Patient Data Vitals - Most Recent: Last Vital Signs Temp 36.5 C 01/17/19 08:00 Pulse 87 01/17/19 08:00 Resp 16 01/17/19 08:00 BP 141/69 H 01/17/19 08:00 Pulse Ox 96 01/17/19 08:00 Weight - Most Recent: 86.092 kg I&O - Last 24 Hours: Intake & Output 01/17/19 01/17/19 01/17/19 06:59 14:59 22:59 Intake Total 300 Balance 300 Med Orders - Current: Current Medications Acetaminophen (Tylenol) 650 mg PO 0200,0800,1300,2000 [facility] Last Admin: 01/17/19 13:00 Dose: 650 mg Calcium Carbonate/Glycine (Tums Extra Strength) 750 mg PO TID PRN PRN Reason: Dyspepsia Last Admin: 01/06/19 18:18 Dose: 750 mg Docusate Sodium (Colace) 100 mg PO DAILY PRN PRN Reason: Constipation Famotidine (Pepcid) 20 mg PO DAILY [facility] Last Admin: 01/17/19 08:55 Dose: 20 mg Furosemide (Lasix) 20 mg PO DAILY [facility] Last Admin: 01/17/19 08:56 Dose: 20 mg Gabapentin (Neurontin) 100 mg PO BID@0800,1300 [facility] Last Admin: 01/17/19 13:00 Dose: 100 mg Melatonin (Melatonin) 6 mg PO BEDTIME [facility] Last Admin: 01/16/19 20:13 Dose: 6 mg Nitroglycerin (Nitrostat) 0.4 mg SL Q5M PRN PRN Reason: Chest Pain Last Admin: 12/28/18 18:18 Dose: 0.4 mg Own Supply: Warfarin 2.5mg (1/2 Of 5mg Tab) 0 mg PO MoTh@1999 [facility] Last Admin: 01/16/19 20:12 Dose: 2.5 mg Own Supply: Warfarin (. 5mg) 0 mg PO SuTuWeFrSa@1999 [facility] Last Admin: 01/15/19 19:18 Dose: 5 mg Own Supply: (Gabapentin. 300mg) 0 mg PO BEDTIME [facility] Last Admin: 01/16/19 20:11 Dose: 300 mg Own Supply: (Metoprolol.Er 25mg) 0 mg PO DAILY [facility] Last Admin: 01/17/19 08:57 Dose: 25 mg Pharmacy Consult (Consult To Pharmacy) 1 each .XX ASDIRECTED [facility] Polyethylene Glycol (Miralax) 17 gm PO DAILY PRN PRN Reason: Constipation Ropinirole HCl (Requip) 0.5 mg PO BEDTIME [facility] Last Admin: 01/16/19 20:13 Dose: 0.5 mg Senna/Docusate Sodium (Senna Plus) 1 tab PO DAILY PRN PRN Reason: Constipation Sertraline HCl (Zoloft) 100 mg PO DAILY [facility] Last Admin: 01/17/19 08:57 Dose: 100 mg Vitamin B Complex/Vit C/Vit E/Zinc (Stress Formula With Zinc) 1 tab PO DAILY [facility] Last Admin: 01/17/19 08:55 Dose: 1 tab Discontinued Medications Polyethylene Glycol (Miralax) 17 gm PO DAILY [facility] Last Admin: 12/18/18 08:17 Dose: Not Given - Problem List Review Problem List Initiated/Reviewed/Updated: Yes - My Orders Last 24 Hours: My Active Orders 01/24/19 07:00 INR,PT,PROTHROMBIN TIME [COAG] Q28D 02/21/19 07:00 INR,PT,PROTHROMBIN TIME [COAG] Q28D
[2019-01-17] MEDS: Melatonin 3 MG Tab PO SCH (20:09)
[2019-01-17] MEDS: GABAPENTIN 300 MG PO SCH (20:11)
[2019-01-17] MEDS: ROPINIROLE 0.5 MG PO SCH (20:11)
[2019-01-17] MEDS: [UNRECOGNIZED DRUG - OTHER] PO SCH (20:12)
[2019-01-18] MEDS: Acetaminophen 325 MG Tab PO SCH ×4 (05:11→20:36)
[2019-01-18] MEDS: Multivitamin, Stress Formula with Zinc Tab PO SCH (08:06)
[2019-01-18] MEDS: GABAPENTIN 100 MG PO SCH ×2 (08:07→12:28)
[2019-01-18] MEDS: Famotidine 20 MG Tab PO SCH (08:07)
[2019-01-18] MEDS: [UNRECOGNIZED DRUG - OTHER] PO SCH (08:08)
[2019-01-18] MEDS: [UNRECOGNIZED DRUG - OTHER] PO SCH (08:08)
[2019-01-18] MEDS: SERTRALINE 100 MG PO SCH (08:08)
[2019-01-18] MEDS: Melatonin 3 MG Tab PO SCH (20:36)
[2019-01-18] MEDS: GABAPENTIN 300 MG PO SCH (20:38)
[2019-01-18] MEDS: ROPINIROLE 0.5 MG PO SCH (20:39)
[2019-01-18] MEDS: [UNRECOGNIZED DRUG - OTHER] PO SCH (20:39)
[2019-01-19] MEDS: Acetaminophen 325 MG Tab PO SCH ×4 (05:47→20:16)
[2019-01-19] MEDS: Famotidine 20 MG Tab PO SCH (09:04)
[2019-01-19] MEDS: Multivitamin, Stress Formula with Zinc Tab PO SCH (09:04)
[2019-01-19] MEDS: GABAPENTIN 100 MG PO SCH ×2 (09:05→14:12)
[2019-01-19] MEDS: [UNRECOGNIZED DRUG - OTHER] PO SCH (09:06)
[2019-01-19] MEDS: SERTRALINE 100 MG PO SCH (09:06)
[2019-01-19] MEDS: [UNRECOGNIZED DRUG - OTHER] PO SCH (09:06)
[2019-01-19] MEDS: GABAPENTIN 300 MG PO SCH (20:14)
[2019-01-19] MEDS: [UNRECOGNIZED DRUG - OTHER] PO SCH (20:15)
[2019-01-19] MEDS: ROPINIROLE 0.5 MG PO SCH (20:15)
[2019-01-19] MEDS: Melatonin 3 MG Tab PO SCH (20:16)
[2019-01-20] MEDS: Acetaminophen 325 MG Tab PO SCH ×4 (02:38→19:39)
[2019-01-20] MEDS: [UNRECOGNIZED DRUG - OTHER] PO SCH (08:24)
[2019-01-20] MEDS: [UNRECOGNIZED DRUG - OTHER] PO SCH (08:24)
[2019-01-20] MEDS: GABAPENTIN 100 MG PO SCH ×2 (08:24→12:17)
[2019-01-20] MEDS: SERTRALINE 100 MG PO SCH (08:24)
[2019-01-20] MEDS: Multivitamin, Stress Formula with Zinc Tab PO SCH (08:25)
[2019-01-20] MEDS: Famotidine 20 MG Tab PO SCH (08:25)
[2019-01-20] MEDS: Melatonin 3 MG Tab PO SCH (19:38)
[2019-01-20] MEDS: WARFARIN PO SCH (19:39)
[2019-01-20] MEDS: ROPINIROLE 0.5 MG PO SCH (19:39)
[2019-01-20] MEDS: GABAPENTIN 300 MG PO SCH (19:40)
[2019-01-21] MEDS: Acetaminophen 325 MG Tab PO SCH ×4 (05:46→19:20)
[2019-01-21] MEDS: Famotidine 20 MG Tab PO SCH (07:54)
[2019-01-21] MEDS: Multivitamin, Stress Formula with Zinc Tab PO SCH (07:55)
[2019-01-21] MEDS: [UNRECOGNIZED DRUG - OTHER] PO SCH (07:55)
[2019-01-21] MEDS: [UNRECOGNIZED DRUG - OTHER] PO SCH (07:55)
[2019-01-21] MEDS: SERTRALINE 100 MG PO SCH (07:55)
[2019-01-21] MEDS: GABAPENTIN 100 MG PO SCH ×2 (07:56→12:48)
[2019-01-21] MEDS: GABAPENTIN 300 MG PO SCH (19:19)
[2019-01-21] MEDS: [UNRECOGNIZED DRUG - OTHER] PO SCH (19:20)
[2019-01-21] MEDS: Melatonin 3 MG Tab PO SCH (19:20)
[2019-01-21] MEDS: ROPINIROLE 0.5 MG PO SCH (19:20)
[2019-01-22] MEDS: Acetaminophen 325 MG Tab PO SCH ×4 (02:59→19:45)
[2019-01-22] MEDS: Multivitamin, Stress Formula with Zinc Tab PO SCH (07:40)
[2019-01-22] MEDS: Famotidine 20 MG Tab PO SCH (07:40)
[2019-01-22] MEDS: SERTRALINE 100 MG PO SCH (07:42)
[2019-01-22] MEDS: GABAPENTIN 100 MG PO SCH ×2 (07:43→12:09)
[2019-01-22] MEDS: [UNRECOGNIZED DRUG - OTHER] PO SCH (07:43)
[2019-01-22] MEDS: [UNRECOGNIZED DRUG - OTHER] PO SCH (07:43)
[2019-01-22] MEDS: ROPINIROLE 0.5 MG PO SCH (19:44)
[2019-01-22] MEDS: GABAPENTIN 300 MG PO SCH (19:44)
[2019-01-22] MEDS: [UNRECOGNIZED DRUG - OTHER] PO SCH (19:45)
[2019-01-22] MEDS: Melatonin 3 MG Tab PO SCH (19:45)
[2019-01-23] MEDS: Acetaminophen 325 MG Tab PO SCH ×4 (03:31→20:07)
[2019-01-23] MEDS: GABAPENTIN 100 MG PO SCH ×2 (08:20→12:23)
[2019-01-23] MEDS: Famotidine 20 MG Tab PO SCH (08:21)
[2019-01-23] MEDS: Multivitamin, Stress Formula with Zinc Tab PO SCH (08:21)
[2019-01-23] MEDS: [UNRECOGNIZED DRUG - OTHER] PO SCH (08:22)
[2019-01-23] MEDS: [UNRECOGNIZED DRUG - OTHER] PO SCH (08:23)
[2019-01-23] MEDS: SERTRALINE 100 MG PO SCH (08:23)
[2019-01-23] MEDS: GABAPENTIN 300 MG PO SCH (20:02)
[2019-01-23] MEDS: WARFARIN PO SCH (20:04)
[2019-01-23] MEDS: ROPINIROLE 0.5 MG PO SCH (20:05)
[2019-01-23] MEDS: Melatonin 3 MG Tab PO SCH (20:08)
[2019-01-24] MEDS: Acetaminophen 325 MG Tab PO SCH ×4 (06:37→20:01)
[2019-01-24] MEDS: Multivitamin, Stress Formula with Zinc Tab PO SCH (09:26)
[2019-01-24] MEDS: Famotidine 20 MG Tab PO SCH (09:26)
[2019-01-24] MEDS: [UNRECOGNIZED DRUG - OTHER] PO SCH (09:27)
[2019-01-24] MEDS: SERTRALINE 100 MG PO SCH (09:27)
[2019-01-24] MEDS: [UNRECOGNIZED DRUG - OTHER] PO SCH (09:27)
[2019-01-24] MEDS: GABAPENTIN 100 MG PO SCH ×2 (09:27→13:21)
[2019-01-24] MEDS: GABAPENTIN 300 MG PO SCH (19:58)
[2019-01-24] MEDS: Melatonin 3 MG Tab PO SCH (20:01)
[2019-01-24] MEDS: ROPINIROLE 0.5 MG PO SCH (20:02)
[2019-01-24] MEDS: [UNRECOGNIZED DRUG - OTHER] PO SCH (20:02)
[2019-01-25] MEDS: Acetaminophen 325 MG Tab PO SCH ×4 (03:49→19:32)
[2019-01-25] MEDS: GABAPENTIN 100 MG PO SCH ×2 (07:45→12:31)
[2019-01-25] MEDS: Multivitamin, Stress Formula with Zinc Tab PO SCH (07:46)
[2019-01-25] MEDS: Famotidine 20 MG Tab PO SCH (07:46)
[2019-01-25] MEDS: [UNRECOGNIZED DRUG - OTHER] PO SCH (07:46)
[2019-01-25] MEDS: SERTRALINE 100 MG PO SCH (07:46)
[2019-01-25] MEDS: [UNRECOGNIZED DRUG - OTHER] PO SCH (07:46)
[2019-01-25] MEDS: GABAPENTIN 300 MG PO SCH (19:32)
[2019-01-25] MEDS: ROPINIROLE 0.5 MG PO SCH (19:33)
[2019-01-25] MEDS: [UNRECOGNIZED DRUG - OTHER] PO SCH (19:34)
[2019-01-25] MEDS: Melatonin 3 MG Tab PO SCH (19:35)
[2019-01-26] MEDS: Acetaminophen 325 MG Tab PO SCH ×4 (03:52→20:28)
[2019-01-26] MEDS: [UNRECOGNIZED DRUG - OTHER] PO SCH (09:20)
[2019-01-26] MEDS: GABAPENTIN 100 MG PO SCH ×2 (09:20→13:15)
[2019-01-26] MEDS: SERTRALINE 100 MG PO SCH (09:20)
[2019-01-26] MEDS: Multivitamin, Stress Formula with Zinc Tab PO SCH (09:20)
[2019-01-26] MEDS: [UNRECOGNIZED DRUG - OTHER] PO SCH (09:20)
[2019-01-26] MEDS: Famotidine 20 MG Tab PO SCH (09:22)
[2019-01-26] MEDS: Melatonin 3 MG Tab PO SCH (20:29)
[2019-01-26] MEDS: GABAPENTIN 300 MG PO SCH (20:31)
[2019-01-26] MEDS: ROPINIROLE 0.5 MG PO SCH (20:33)
[2019-01-26] MEDS: [UNRECOGNIZED DRUG - OTHER] PO SCH (20:34)
[2019-01-27] MEDS: Acetaminophen 325 MG Tab PO SCH ×4 (03:22→19:22)
[2019-01-27] MEDS: SERTRALINE 100 MG PO SCH (07:45)
[2019-01-27] MEDS: [UNRECOGNIZED DRUG - OTHER] PO SCH (07:45)
[2019-01-27] MEDS: GABAPENTIN 100 MG PO SCH ×2 (07:45→13:42)
[2019-01-27] MEDS: [UNRECOGNIZED DRUG - OTHER] PO SCH (07:45)
[2019-01-27] MEDS: Famotidine 20 MG Tab PO SCH (07:46)
[2019-01-27] MEDS: Multivitamin, Stress Formula with Zinc Tab PO SCH (07:46)
[2019-01-27] MEDS: Melatonin 3 MG Tab PO SCH (19:22)
[2019-01-27] MEDS: GABAPENTIN 300 MG PO SCH (19:22)
[2019-01-27] MEDS: ROPINIROLE 0.5 MG PO SCH (19:23)
[2019-01-27] MEDS: WARFARIN PO SCH (19:24)
[2019-01-28] MEDS: Acetaminophen 325 MG Tab PO SCH ×4 (03:45→20:14)
[2019-01-28] MEDS: Multivitamin, Stress Formula with Zinc Tab PO SCH (07:40)
[2019-01-28] MEDS: [UNRECOGNIZED DRUG - OTHER] PO SCH (07:41)
[2019-01-28] MEDS: [UNRECOGNIZED DRUG - OTHER] PO SCH (07:41)
[2019-01-28] MEDS: Famotidine 20 MG Tab PO SCH (07:41)
[2019-01-28] MEDS: GABAPENTIN 100 MG PO SCH ×2 (07:42→13:22)
[2019-01-28] MEDS: SERTRALINE 100 MG PO SCH (07:42)
[2019-01-28] MEDS: ROPINIROLE 0.5 MG PO SCH (20:14)
[2019-01-28] MEDS: GABAPENTIN 300 MG PO SCH (20:14)
[2019-01-28] MEDS: Melatonin 3 MG Tab PO SCH (20:14)
[2019-01-28] MEDS: [UNRECOGNIZED DRUG - OTHER] PO SCH (20:15)
[2019-01-29] MEDS: Acetaminophen 325 MG Tab PO SCH ×4 (04:40→19:16)
[2019-01-29] MEDS: Multivitamin, Stress Formula with Zinc Tab PO SCH (07:31)
[2019-01-29] MEDS: GABAPENTIN 100 MG PO SCH ×2 (07:33→14:08)
[2019-01-29] MEDS: [UNRECOGNIZED DRUG - OTHER] PO SCH (07:33)
[2019-01-29] MEDS: SERTRALINE 100 MG PO SCH (07:33)
[2019-01-29] MEDS: [UNRECOGNIZED DRUG - OTHER] PO SCH (07:33)
[2019-01-29] MEDS: Famotidine 20 MG Tab PO SCH (07:38)
[2019-01-29] MEDS: GABAPENTIN 300 MG PO SCH (19:16)
[2019-01-29] MEDS: Melatonin 3 MG Tab PO SCH (19:16)
[2019-01-29] MEDS: ROPINIROLE 0.5 MG PO SCH (19:16)
[2019-01-29] MEDS: [UNRECOGNIZED DRUG - OTHER] PO SCH (19:16)
[2019-01-30] MEDS: Acetaminophen 325 MG Tab PO SCH ×4 (03:10→20:55)
[2019-01-30] MEDS: Famotidine 20 MG Tab PO SCH (07:10)
[2019-01-30] MEDS: Multivitamin, Stress Formula with Zinc Tab PO SCH (07:10)
[2019-01-30] MEDS: GABAPENTIN 100 MG PO SCH ×2 (07:11→12:33)
[2019-01-30] MEDS: [UNRECOGNIZED DRUG - OTHER] PO SCH (07:13)
[2019-01-30] MEDS: SERTRALINE 100 MG PO SCH (07:13)
[2019-01-30] MEDS: [UNRECOGNIZED DRUG - OTHER] PO SCH (07:13)
[2019-01-30] MEDS: Melatonin 3 MG Tab PO SCH (20:55)
[2019-01-30] MEDS: ROPINIROLE 0.5 MG PO SCH (20:55)
[2019-01-30] MEDS: GABAPENTIN 300 MG PO SCH (20:55)
[2019-01-30] MEDS: WARFARIN PO SCH (20:55)
[2019-01-31] MEDS: Acetaminophen 325 MG Tab PO SCH ×4 (03:08→19:33)
[2019-01-31] MEDS: Multivitamin, Stress Formula with Zinc Tab PO SCH (07:57)
[2019-01-31] MEDS: GABAPENTIN 100 MG PO SCH ×2 (07:57→13:59)
[2019-01-31] MEDS: SERTRALINE 100 MG PO SCH (07:58)
[2019-01-31] MEDS: Famotidine 20 MG Tab PO SCH (07:58)
[2019-01-31] MEDS: [UNRECOGNIZED DRUG - OTHER] PO SCH (07:59)
[2019-01-31] MEDS: [UNRECOGNIZED DRUG - OTHER] PO SCH (07:59)
[2019-01-31] MEDS: [UNRECOGNIZED DRUG - OTHER] PO SCH (19:32)
[2019-01-31] MEDS: ROPINIROLE 0.5 MG PO SCH (19:32)
[2019-01-31] MEDS: GABAPENTIN 300 MG PO SCH (19:33)
[2019-01-31] MEDS: Melatonin 3 MG Tab PO SCH (19:33)
[2019-02-01] MEDS: Acetaminophen 325 MG Tab PO SCH ×4 (03:38→19:40)
[2019-02-01] MEDS: GABAPENTIN 100 MG PO SCH ×2 (08:51→12:40)
[2019-02-01] MEDS: Famotidine 20 MG Tab PO SCH (08:51)
[2019-02-01] MEDS: [UNRECOGNIZED DRUG - OTHER] PO SCH (08:52)
[2019-02-01] MEDS: SERTRALINE 100 MG PO SCH (08:53)
[2019-02-01] MEDS: [UNRECOGNIZED DRUG - OTHER] PO SCH (08:53)
[2019-02-01] MEDS: Multivitamin, Stress Formula with Zinc Tab PO SCH (09:00)
[2019-02-01] MEDS: GABAPENTIN 300 MG PO SCH (19:38)
[2019-02-01] MEDS: [UNRECOGNIZED DRUG - OTHER] PO SCH (19:39)
[2019-02-01] MEDS: ROPINIROLE 0.5 MG PO SCH (19:39)
[2019-02-01] MEDS: Melatonin 3 MG Tab PO SCH (19:40)
[2019-02-02] MEDS: Acetaminophen 325 MG Tab PO SCH ×4 (06:09→19:43)
[2019-02-02] MEDS: SERTRALINE 100 MG PO SCH (08:28)
[2019-02-02] MEDS: [UNRECOGNIZED DRUG - OTHER] PO SCH (08:28)
[2019-02-02] MEDS: GABAPENTIN 100 MG PO SCH ×2 (08:28→12:29)
[2019-02-02] MEDS: [UNRECOGNIZED DRUG - OTHER] PO SCH (08:28)
[2019-02-02] MEDS: Famotidine 20 MG Tab PO SCH (08:29)
[2019-02-02] MEDS: Multivitamin, Stress Formula with Zinc Tab PO SCH (08:29)
[2019-02-02] MEDS: Calcium Carbonate 750 MG Tab.Chew PO PRN (10:06)
[2019-02-02] MEDS: GABAPENTIN 300 MG PO SCH (19:42)
[2019-02-02] MEDS: ROPINIROLE 0.5 MG PO SCH (19:42)
[2019-02-02] MEDS: [UNRECOGNIZED DRUG - OTHER] PO SCH (19:43)
[2019-02-02] MEDS: Melatonin 3 MG Tab PO SCH (19:43)
[2019-02-03] MEDS: Acetaminophen 325 MG Tab PO SCH ×4 (05:17→19:38)
[2019-02-03] MEDS: GABAPENTIN 100 MG PO SCH ×2 (09:15→13:09)
[2019-02-03] MEDS: [UNRECOGNIZED DRUG - OTHER] PO SCH (09:15)
[2019-02-03] MEDS: [UNRECOGNIZED DRUG - OTHER] PO SCH (09:15)
[2019-02-03] MEDS: SERTRALINE 100 MG PO SCH (09:15)
[2019-02-03] MEDS: Famotidine 20 MG Tab PO SCH (09:15)
[2019-02-03] MEDS: Multivitamin, Stress Formula with Zinc Tab PO SCH (09:16)
[2019-02-03] MEDS: GABAPENTIN 300 MG PO SCH (19:36)
[2019-02-03] MEDS: ROPINIROLE 0.5 MG PO SCH (19:37)
[2019-02-03] MEDS: WARFARIN PO SCH (19:37)
[2019-02-03] MEDS: Melatonin 3 MG Tab PO SCH (19:38)
[2019-02-04] MEDS: Acetaminophen 325 MG Tab PO SCH ×4 (03:03→19:20)
[2019-02-04] MEDS: Famotidine 20 MG Tab PO SCH (08:16)
[2019-02-04] MEDS: [UNRECOGNIZED DRUG - OTHER] PO SCH (08:17)
[2019-02-04] MEDS: Multivitamin, Stress Formula with Zinc Tab PO SCH (08:17)
[2019-02-04] MEDS: GABAPENTIN 100 MG PO SCH ×2 (08:18→13:48)
[2019-02-04] MEDS: [UNRECOGNIZED DRUG - OTHER] PO SCH (08:18)
[2019-02-04] MEDS: SERTRALINE 100 MG PO SCH (08:18)
[2019-02-04] MEDS: Melatonin 3 MG Tab PO SCH (19:20)
[2019-02-04] MEDS: ROPINIROLE 0.5 MG PO SCH (19:20)
[2019-02-04] MEDS: [UNRECOGNIZED DRUG - OTHER] PO SCH (19:20)
[2019-02-04] MEDS: GABAPENTIN 300 MG PO SCH (19:21)
[2019-02-05] MEDS: Acetaminophen 325 MG Tab PO SCH ×4 (04:13→19:28)
[2019-02-05] MEDS: GABAPENTIN 100 MG PO SCH ×2 (08:23→12:46)
[2019-02-05] MEDS: Multivitamin, Stress Formula with Zinc Tab PO SCH (08:24)
[2019-02-05] MEDS: Famotidine 20 MG Tab PO SCH (08:24)
[2019-02-05] MEDS: SERTRALINE 100 MG PO SCH (08:24)
[2019-02-05] MEDS: [UNRECOGNIZED DRUG - OTHER] PO SCH (08:25)
[2019-02-05] MEDS: [UNRECOGNIZED DRUG - OTHER] PO SCH (08:25)
[2019-02-05] MEDS: Melatonin 3 MG Tab PO SCH (19:28)
[2019-02-05] MEDS: ROPINIROLE 0.5 MG PO SCH (19:28)
[2019-02-05] MEDS: GABAPENTIN 300 MG PO SCH (19:28)
[2019-02-05] MEDS: [UNRECOGNIZED DRUG - OTHER] PO SCH (19:29)
[2019-02-06] MEDS: Acetaminophen 325 MG Tab PO SCH ×4 (04:11→19:57)
[2019-02-06] MEDS: GABAPENTIN 100 MG PO SCH ×2 (08:38→12:34)
[2019-02-06] MEDS: Multivitamin, Stress Formula with Zinc Tab PO SCH (08:38)
[2019-02-06] MEDS: Famotidine 20 MG Tab PO SCH (08:39)
[2019-02-06] MEDS: SERTRALINE 100 MG PO SCH (08:39)
[2019-02-06] MEDS: [UNRECOGNIZED DRUG - OTHER] PO SCH (08:40)
[2019-02-06] MEDS: [UNRECOGNIZED DRUG - OTHER] PO SCH (08:40)
[2019-02-06] MEDS: GABAPENTIN 300 MG PO SCH (19:53)
[2019-02-06] MEDS: WARFARIN PO SCH (19:56)
[2019-02-06] MEDS: Melatonin 3 MG Tab PO SCH (19:57)
[2019-02-06] MEDS: ROPINIROLE 0.5 MG PO SCH (19:57)
[2019-02-07] MEDS: Acetaminophen 325 MG Tab PO SCH ×4 (03:52→20:14)
[2019-02-07] MEDS: GABAPENTIN 100 MG PO SCH ×2 (07:56→12:16)
[2019-02-07] MEDS: Famotidine 20 MG Tab PO SCH (07:56)
[2019-02-07] MEDS: Multivitamin, Stress Formula with Zinc Tab PO SCH (07:56)
[2019-02-07] MEDS: [UNRECOGNIZED DRUG - OTHER] PO SCH (07:56)
[2019-02-07] MEDS: SERTRALINE 100 MG PO SCH (07:56)
[2019-02-07] MEDS: [UNRECOGNIZED DRUG - OTHER] PO SCH (07:57)
[2019-02-07] MEDS: Melatonin 3 MG Tab PO SCH (20:13)
[2019-02-07] MEDS: GABAPENTIN 300 MG PO SCH (20:13)
[2019-02-07] MEDS: [UNRECOGNIZED DRUG - OTHER] PO SCH (20:14)
[2019-02-07] MEDS: ROPINIROLE 0.5 MG PO SCH (20:14)
[2019-02-08] MEDS: Acetaminophen 325 MG Tab PO SCH ×4 (04:55→19:18)
[2019-02-08] MEDS: Famotidine 20 MG Tab PO SCH (07:40)
[2019-02-08] MEDS: Multivitamin, Stress Formula with Zinc Tab PO SCH (07:40)
[2019-02-08] MEDS: [UNRECOGNIZED DRUG - OTHER] PO SCH (07:41)
[2019-02-08] MEDS: SERTRALINE 100 MG PO SCH (07:41)
[2019-02-08] MEDS: GABAPENTIN 100 MG PO SCH ×2 (07:43→12:21)
[2019-02-08] MEDS: [UNRECOGNIZED DRUG - OTHER] PO SCH (07:44)
[2019-02-08] MEDS: Melatonin 3 MG Tab PO SCH (19:18)
[2019-02-08] MEDS: GABAPENTIN 300 MG PO SCH (19:18)
[2019-02-08] MEDS: [UNRECOGNIZED DRUG - OTHER] PO SCH (19:18)
[2019-02-08] MEDS: ROPINIROLE 0.5 MG PO SCH (19:18)
[2019-02-09] MEDS: Acetaminophen 325 MG Tab PO SCH ×4 (04:06→19:52)
[2019-02-09] MEDS: Famotidine 20 MG Tab PO SCH (07:12)
[2019-02-09] MEDS: SERTRALINE 100 MG PO SCH (07:13)
[2019-02-09] MEDS: Multivitamin, Stress Formula with Zinc Tab PO SCH (07:13)
[2019-02-09] MEDS: [UNRECOGNIZED DRUG - OTHER] PO SCH (07:13)
[2019-02-09] MEDS: GABAPENTIN 100 MG PO SCH ×2 (07:14→12:22)
[2019-02-09] MEDS: [UNRECOGNIZED DRUG - OTHER] PO SCH (07:16)
[2019-02-09] MEDS: Melatonin 3 MG Tab PO SCH (19:52)
[2019-02-09] MEDS: ROPINIROLE 0.5 MG PO SCH (19:52)
[2019-02-09] MEDS: [UNRECOGNIZED DRUG - OTHER] PO SCH (19:52)
[2019-02-09] MEDS: GABAPENTIN 300 MG PO SCH (19:52)
[2019-02-10] MEDS: Acetaminophen 325 MG Tab PO SCH ×4 (04:48→20:30)
[2019-02-10] MEDS: [UNRECOGNIZED DRUG - OTHER] PO SCH (09:30)
[2019-02-10] MEDS: [UNRECOGNIZED DRUG - OTHER] PO SCH (09:31)
[2019-02-10] MEDS: GABAPENTIN 100 MG PO SCH ×2 (09:32→12:35)
[2019-02-10] MEDS: SERTRALINE 100 MG PO SCH (09:32)
[2019-02-10] MEDS: Multivitamin, Stress Formula with Zinc Tab PO SCH (09:33)
[2019-02-10] MEDS: Famotidine 20 MG Tab PO SCH (09:33)
[2019-02-10] MEDS: GABAPENTIN 300 MG PO SCH (20:28)
[2019-02-10] MEDS: WARFARIN PO SCH (20:28)
[2019-02-10] MEDS: ROPINIROLE 0.5 MG PO SCH (20:29)
[2019-02-10] MEDS: Melatonin 3 MG Tab PO SCH (20:30)
[2019-02-11] MEDS: Acetaminophen 325 MG Tab PO SCH ×4 (05:19→19:18)
[2019-02-11] MEDS: [UNRECOGNIZED DRUG - OTHER] PO SCH (08:38)
[2019-02-11] MEDS: SERTRALINE 100 MG PO SCH (08:39)
[2019-02-11] MEDS: [UNRECOGNIZED DRUG - OTHER] PO SCH (08:39)
[2019-02-11] MEDS: Multivitamin, Stress Formula with Zinc Tab PO SCH (08:40)
[2019-02-11] MEDS: GABAPENTIN 100 MG PO SCH ×2 (08:41→12:32)
[2019-02-11] MEDS: Famotidine 20 MG Tab PO SCH (08:41)
[2019-02-11] MEDS: GABAPENTIN 300 MG PO SCH (19:16)
[2019-02-11] MEDS: ROPINIROLE 0.5 MG PO SCH (19:17)
[2019-02-11] MEDS: [UNRECOGNIZED DRUG - OTHER] PO SCH (19:17)
[2019-02-11] MEDS: Melatonin 3 MG Tab PO SCH (19:18)
[2019-02-12] MEDS: Acetaminophen 325 MG Tab PO SCH ×4 (03:05→19:18)
[2019-02-12] MEDS: GABAPENTIN 100 MG PO SCH ×2 (07:53→13:56)
[2019-02-12] MEDS: [UNRECOGNIZED DRUG - OTHER] PO SCH (07:54)
[2019-02-12] MEDS: SERTRALINE 100 MG PO SCH (07:54)
[2019-02-12] MEDS: [UNRECOGNIZED DRUG - OTHER] PO SCH (07:54)
[2019-02-12] MEDS: Famotidine 20 MG Tab PO SCH (07:55)
[2019-02-12] MEDS: Multivitamin, Stress Formula with Zinc Tab PO SCH (07:55)
[2019-02-12] MEDS: GABAPENTIN 300 MG PO SCH (19:16)
[2019-02-12] MEDS: ROPINIROLE 0.5 MG PO SCH (19:17)
[2019-02-12] MEDS: [UNRECOGNIZED DRUG - OTHER] PO SCH (19:18)
[2019-02-12] MEDS: Melatonin 3 MG Tab PO SCH (19:18)
[2019-02-13] MEDS: Acetaminophen 325 MG Tab PO SCH ×4 (03:41→19:55)
[2019-02-13] MEDS: [UNRECOGNIZED DRUG - OTHER] PO SCH (08:50)
[2019-02-13] MEDS: Famotidine 20 MG Tab PO SCH (08:50)
[2019-02-13] MEDS: Multivitamin, Stress Formula with Zinc Tab PO SCH (08:50)
[2019-02-13] MEDS: SERTRALINE 100 MG PO SCH (08:51)
[2019-02-13] MEDS: GABAPENTIN 100 MG PO SCH ×2 (08:51→12:08)
[2019-02-13] MEDS: [UNRECOGNIZED DRUG - OTHER] PO SCH (08:51)
[2019-02-13] MEDS: Melatonin 3 MG Tab PO SCH (19:55)
[2019-02-13] MEDS: GABAPENTIN 300 MG PO SCH (19:55)
[2019-02-13] MEDS: WARFARIN PO SCH (19:56)
[2019-02-13] MEDS: ROPINIROLE 0.5 MG PO SCH (19:56)
[2019-02-14] MEDS: Acetaminophen 325 MG Tab PO SCH ×4 (03:51→19:44)
[2019-02-14] MEDS: [UNRECOGNIZED DRUG - OTHER] PO SCH (09:11)
[2019-02-14] MEDS: SERTRALINE 100 MG PO SCH (09:11)
[2019-02-14] MEDS: GABAPENTIN 100 MG PO SCH ×2 (09:11→12:49)
[2019-02-14] MEDS: [UNRECOGNIZED DRUG - OTHER] PO SCH (09:12)
[2019-02-14] MEDS: Multivitamin, Stress Formula with Zinc Tab PO SCH (09:12)
[2019-02-14] MEDS: Famotidine 20 MG Tab PO SCH (09:13)
[2019-02-14] MEDS: GABAPENTIN 300 MG PO SCH (19:42)
[2019-02-14] MEDS: [UNRECOGNIZED DRUG - OTHER] PO SCH (19:43)
[2019-02-14] MEDS: ROPINIROLE 0.5 MG PO SCH (19:43)
[2019-02-14] MEDS: Melatonin 3 MG Tab PO SCH (19:44)
[2019-02-15] MEDS: Acetaminophen 325 MG Tab PO SCH ×4 (04:30→19:40)
[2019-02-15] MEDS: Multivitamin, Stress Formula with Zinc Tab PO SCH (08:40)
[2019-02-15] MEDS: Famotidine 20 MG Tab PO SCH (08:40)
[2019-02-15] MEDS: [UNRECOGNIZED DRUG - OTHER] PO SCH (08:41)
[2019-02-15] MEDS: SERTRALINE 100 MG PO SCH (08:41)
[2019-02-15] MEDS: GABAPENTIN 100 MG PO SCH ×2 (08:41→12:52)
[2019-02-15] MEDS: [UNRECOGNIZED DRUG - OTHER] PO SCH (08:42)
[2019-02-15] MEDS: GABAPENTIN 300 MG PO SCH (19:39)
[2019-02-15] MEDS: Melatonin 3 MG Tab PO SCH (19:39)
[2019-02-15] MEDS: ROPINIROLE 0.5 MG PO SCH (19:40)
[2019-02-15] MEDS: [UNRECOGNIZED DRUG - OTHER] PO SCH (19:40)
[2019-02-16] MEDS: Acetaminophen 325 MG Tab PO SCH ×4 (06:18→20:46)
[2019-02-16] MEDS: Multivitamin, Stress Formula with Zinc Tab PO SCH (08:36)
[2019-02-16] MEDS: Famotidine 20 MG Tab PO SCH (08:37)
[2019-02-16] MEDS: GABAPENTIN 100 MG PO SCH ×2 (08:37→13:04)
[2019-02-16] MEDS: SERTRALINE 100 MG PO SCH (08:40)
[2019-02-16] MEDS: [UNRECOGNIZED DRUG - OTHER] PO SCH (08:40)
[2019-02-16] MEDS: [UNRECOGNIZED DRUG - OTHER] PO SCH (08:41)
[2019-02-16] MEDS: GABAPENTIN 300 MG PO SCH (20:44)
[2019-02-16] MEDS: [UNRECOGNIZED DRUG - OTHER] PO SCH (20:45)
[2019-02-16] MEDS: ROPINIROLE 0.5 MG PO SCH (20:45)
[2019-02-16] MEDS: Melatonin 3 MG Tab PO SCH (21:07)
[2019-02-17] MEDS: Acetaminophen 325 MG Tab PO SCH ×4 (03:20→20:39)
[2019-02-17] MEDS: Famotidine 20 MG Tab PO SCH (07:26)
[2019-02-17] MEDS: Multivitamin, Stress Formula with Zinc Tab PO SCH (07:26)
[2019-02-17] MEDS: SERTRALINE 100 MG PO SCH (07:27)
[2019-02-17] MEDS: [UNRECOGNIZED DRUG - OTHER] PO SCH (07:27)
[2019-02-17] MEDS: GABAPENTIN 100 MG PO SCH ×2 (07:28→13:19)
[2019-02-17] MEDS: [UNRECOGNIZED DRUG - OTHER] PO SCH (07:29)
[2019-02-17] MEDS: GABAPENTIN 300 MG PO SCH (20:37)
[2019-02-17] MEDS: WARFARIN PO SCH (20:39)
[2019-02-17] MEDS: Melatonin 3 MG Tab PO SCH (20:39)
[2019-02-17] MEDS: ROPINIROLE 0.5 MG PO SCH (20:39)
[2019-02-18] MEDS: Acetaminophen 325 MG Tab PO SCH ×4 (03:27→19:52)
[2019-02-18] MEDS: GABAPENTIN 100 MG PO SCH ×2 (08:52→12:32)
[2019-02-18] MEDS: [UNRECOGNIZED DRUG - OTHER] PO SCH (08:53)
[2019-02-18] MEDS: Famotidine 20 MG Tab PO SCH (08:53)
[2019-02-18] MEDS: SERTRALINE 100 MG PO SCH (08:53)
[2019-02-18] MEDS: Multivitamin, Stress Formula with Zinc Tab PO SCH (08:53)
[2019-02-18] MEDS: [UNRECOGNIZED DRUG - OTHER] PO SCH (08:54)
[2019-02-18] MEDS: [UNRECOGNIZED DRUG - OTHER] PO SCH (19:52)
[2019-02-18] MEDS: ROPINIROLE 0.5 MG PO SCH (19:52)
[2019-02-18] MEDS: GABAPENTIN 300 MG PO SCH (19:54)
[2019-02-18] MEDS: Melatonin 3 MG Tab PO SCH (20:03)
[2019-02-19] MEDS: Acetaminophen 325 MG Tab PO SCH ×4 (02:58→20:17)
[2019-02-19] MEDS: Multivitamin, Stress Formula with Zinc Tab PO SCH (08:37)
[2019-02-19] MEDS: Famotidine 20 MG Tab PO SCH (08:37)
[2019-02-19] MEDS: [UNRECOGNIZED DRUG - OTHER] PO SCH (08:38)
[2019-02-19] MEDS: SERTRALINE 100 MG PO SCH (08:38)
[2019-02-19] MEDS: GABAPENTIN 100 MG PO SCH ×2 (08:38→12:40)
[2019-02-19] MEDS: [UNRECOGNIZED DRUG - OTHER] PO SCH (08:39)
[2019-02-19] MEDS: ROPINIROLE 0.5 MG PO SCH (20:17)
[2019-02-19] MEDS: Melatonin 3 MG Tab PO SCH (20:17)
[2019-02-19] MEDS: GABAPENTIN 300 MG PO SCH (20:17)
[2019-02-19] MEDS: [UNRECOGNIZED DRUG - OTHER] PO SCH (20:18)
[2019-02-20] MEDS: Acetaminophen 325 MG Tab PO SCH ×4 (03:49→20:08)
[2019-02-20] MEDS: Multivitamin, Stress Formula with Zinc Tab PO SCH (10:39)
[2019-02-20] MEDS: SERTRALINE 100 MG PO SCH (10:40)
[2019-02-20] MEDS: [UNRECOGNIZED DRUG - OTHER] PO SCH (10:40)
[2019-02-20] MEDS: Famotidine 20 MG Tab PO SCH (10:40)
[2019-02-20] MEDS: [UNRECOGNIZED DRUG - OTHER] PO SCH (10:41)
[2019-02-20] MEDS: GABAPENTIN 100 MG PO SCH ×2 (10:42→13:54)
[2019-02-20] MEDS: GABAPENTIN 300 MG PO SCH (20:05)
[2019-02-20] MEDS: ROPINIROLE 0.5 MG PO SCH (20:06)
[2019-02-20] MEDS: WARFARIN PO SCH (20:06)
[2019-02-20] MEDS: Melatonin 3 MG Tab PO SCH (20:08)
[2019-02-21] MEDS: Acetaminophen 325 MG Tab PO SCH ×4 (06:07→19:52)
[2019-02-21] MEDS: [UNRECOGNIZED DRUG - OTHER] PO SCH (07:47)
[2019-02-21] MEDS: GABAPENTIN 100 MG PO SCH ×2 (07:47→12:32)
[2019-02-21] MEDS: SERTRALINE 100 MG PO SCH (07:48)
[2019-02-21] MEDS: Famotidine 20 MG Tab PO SCH (07:48)
[2019-02-21] MEDS: [UNRECOGNIZED DRUG - OTHER] PO SCH (07:48)
[2019-02-21] MEDS: Multivitamin, Stress Formula with Zinc Tab PO SCH (07:48)
[2019-02-21] MEDS: Melatonin 3 MG Tab PO SCH (19:51)
[2019-02-21] MEDS: GABAPENTIN 300 MG PO SCH (19:51)
[2019-02-21] MEDS: ROPINIROLE 0.5 MG PO SCH (19:51)
[2019-02-21] MEDS: [UNRECOGNIZED DRUG - OTHER] PO SCH (19:51)
[2019-02-22] MEDS: Acetaminophen 325 MG Tab PO SCH ×4 (06:09→19:49)
[2019-02-22] MEDS: Famotidine 20 MG Tab PO SCH (08:54)
[2019-02-22] MEDS: [UNRECOGNIZED DRUG - OTHER] PO SCH (08:54)
[2019-02-22] MEDS: [UNRECOGNIZED DRUG - OTHER] PO SCH (08:54)
[2019-02-22] MEDS: SERTRALINE 100 MG PO SCH (08:54)
[2019-02-22] MEDS: Multivitamin, Stress Formula with Zinc Tab PO SCH (08:54)
[2019-02-22] MEDS: GABAPENTIN 100 MG PO SCH ×2 (08:55→13:04)
[2019-02-22] MEDS: [UNRECOGNIZED DRUG - OTHER] PO SCH (19:48)
[2019-02-22] MEDS: GABAPENTIN 300 MG PO SCH (19:48)
[2019-02-22] MEDS: ROPINIROLE 0.5 MG PO SCH (19:48)
[2019-02-22] MEDS: Melatonin 3 MG Tab PO SCH (19:49)
[2019-02-23] MEDS: Acetaminophen 325 MG Tab PO SCH ×4 (05:49→20:20)
[2019-02-23] MEDS: SERTRALINE 100 MG PO SCH (08:30)
[2019-02-23] MEDS: GABAPENTIN 100 MG PO SCH ×2 (08:30→12:43)
[2019-02-23] MEDS: Famotidine 20 MG Tab PO SCH (08:31)
[2019-02-23] MEDS: Multivitamin, Stress Formula with Zinc Tab PO SCH (08:31)
[2019-02-23] MEDS: [UNRECOGNIZED DRUG - OTHER] PO SCH (08:31)
[2019-02-23] MEDS: [UNRECOGNIZED DRUG - OTHER] PO SCH (08:34)
[2019-02-23] MEDS: ROPINIROLE 0.5 MG PO SCH (20:20)
[2019-02-23] MEDS: GABAPENTIN 300 MG PO SCH (20:20)
[2019-02-23] MEDS: [UNRECOGNIZED DRUG - OTHER] PO SCH (20:20)
[2019-02-23] MEDS: Melatonin 3 MG Tab PO SCH (20:20)
[2019-02-24] MEDS: Acetaminophen 325 MG Tab PO SCH ×4 (06:17→20:47)
[2019-02-24] MEDS: Famotidine 20 MG Tab PO SCH (07:44)
[2019-02-24] MEDS: Multivitamin, Stress Formula with Zinc Tab PO SCH (07:44)
[2019-02-24] MEDS: [UNRECOGNIZED DRUG - OTHER] PO SCH (07:45)
[2019-02-24] MEDS: SERTRALINE 100 MG PO SCH (07:45)
[2019-02-24] MEDS: GABAPENTIN 100 MG PO SCH ×2 (07:45→12:29)
[2019-02-24] MEDS: [UNRECOGNIZED DRUG - OTHER] PO SCH (07:46)
[2019-02-24] MEDS: GABAPENTIN 300 MG PO SCH (20:46)
[2019-02-24] MEDS: Melatonin 3 MG Tab PO SCH (20:47)
[2019-02-24] MEDS: ROPINIROLE 0.5 MG PO SCH (20:47)
[2019-02-24] MEDS: WARFARIN PO SCH (20:47)
[2019-02-25] MEDS: Acetaminophen 325 MG Tab PO SCH ×4 (05:07→20:11)
[2019-02-25] MEDS: [UNRECOGNIZED DRUG - OTHER] PO SCH (09:13)
[2019-02-25] MEDS: GABAPENTIN 100 MG PO SCH ×2 (09:13→12:43)
[2019-02-25] MEDS: Multivitamin, Stress Formula with Zinc Tab PO SCH (09:14)
[2019-02-25] MEDS: SERTRALINE 100 MG PO SCH (09:14)
[2019-02-25] MEDS: Famotidine 20 MG Tab PO SCH (09:15)
[2019-02-25] MEDS: [UNRECOGNIZED DRUG - OTHER] PO SCH (09:15)
[2019-02-25] MEDS: GABAPENTIN 300 MG PO SCH (20:09)
[2019-02-25] MEDS: [UNRECOGNIZED DRUG - OTHER] PO SCH (20:10)
[2019-02-25] MEDS: ROPINIROLE 0.5 MG PO SCH (20:11)
[2019-02-25] MEDS: Melatonin 3 MG Tab PO SCH (20:11)
[2019-02-26] MEDS: Acetaminophen 325 MG Tab PO SCH ×4 (05:41→19:46)
[2019-02-26] MEDS: GABAPENTIN 100 MG PO SCH ×2 (07:55→13:00)
[2019-02-26] MEDS: [UNRECOGNIZED DRUG - OTHER] PO SCH (07:57)
[2019-02-26] MEDS: Famotidine 20 MG Tab PO SCH (07:57)
[2019-02-26] MEDS: Multivitamin, Stress Formula with Zinc Tab PO SCH (07:57)
[2019-02-26] MEDS: SERTRALINE 100 MG PO SCH (07:57)
[2019-02-26] MEDS: [UNRECOGNIZED DRUG - OTHER] PO SCH (07:58)
[2019-02-26] MEDS: ROPINIROLE 0.5 MG PO SCH (19:45)
[2019-02-26] MEDS: [UNRECOGNIZED DRUG - OTHER] PO SCH (19:45)
[2019-02-26] MEDS: GABAPENTIN 300 MG PO SCH (19:45)
[2019-02-26] MEDS: Melatonin 3 MG Tab PO SCH (19:46)
[2019-02-27] MEDS: Acetaminophen 325 MG Tab PO SCH ×4 (05:49→19:48)
[2019-02-27] MEDS: GABAPENTIN 100 MG PO SCH ×2 (07:47→13:43)
[2019-02-27] MEDS: Multivitamin, Stress Formula with Zinc Tab PO SCH (07:48)
[2019-02-27] MEDS: [UNRECOGNIZED DRUG - OTHER] PO SCH (07:49)
[2019-02-27] MEDS: [UNRECOGNIZED DRUG - OTHER] PO SCH (07:49)
[2019-02-27] MEDS: SERTRALINE 100 MG PO SCH (07:49)
[2019-02-27] MEDS: Famotidine 20 MG Tab PO SCH (07:51)
[2019-02-27] MEDS: GABAPENTIN 300 MG PO SCH (19:48)
[2019-02-27] MEDS: Melatonin 3 MG Tab PO SCH (19:48)
[2019-02-27] MEDS: WARFARIN PO SCH (19:49)
[2019-02-27] MEDS: ROPINIROLE 0.5 MG PO SCH (19:49)
[2019-02-28] MEDS: Acetaminophen 325 MG Tab PO SCH ×4 (06:39→20:00)
[2019-02-28] MEDS: [UNRECOGNIZED DRUG - OTHER] PO SCH (07:34)
[2019-02-28] MEDS: SERTRALINE 100 MG PO SCH (07:34)
[2019-02-28] MEDS: Famotidine 20 MG Tab PO SCH (07:34)
[2019-02-28] MEDS: [UNRECOGNIZED DRUG - OTHER] PO SCH (07:34)
[2019-02-28] MEDS: Multivitamin, Stress Formula with Zinc Tab PO SCH (07:34)
[2019-02-28] MEDS: GABAPENTIN 100 MG PO SCH ×2 (07:35→14:00)
[2019-02-28] MEDS: [UNRECOGNIZED DRUG - OTHER] PO SCH (19:59)
[2019-02-28] MEDS: ROPINIROLE 0.5 MG PO SCH (20:00)
[2019-02-28] MEDS: GABAPENTIN 300 MG PO SCH (20:01)
[2019-02-28] MEDS: Melatonin 3 MG Tab PO SCH (20:01)
[2019-03-01] MEDS: Acetaminophen 325 MG Tab PO SCH ×4 (06:08→19:33)
[2019-03-01] MEDS: Famotidine 20 MG Tab PO SCH (07:43)
[2019-03-01] MEDS: Multivitamin, Stress Formula with Zinc Tab PO SCH (07:43)
[2019-03-01] MEDS: SERTRALINE 100 MG PO SCH (07:44)
[2019-03-01] MEDS: [UNRECOGNIZED DRUG - OTHER] PO SCH (07:44)
[2019-03-01] MEDS: [UNRECOGNIZED DRUG - OTHER] PO SCH (07:45)
[2019-03-01] MEDS: GABAPENTIN 100 MG PO SCH ×2 (07:46→12:50)
[2019-03-01] MEDS: GABAPENTIN 300 MG PO SCH (19:32)
[2019-03-01] MEDS: Melatonin 3 MG Tab PO SCH (19:32)
[2019-03-01] MEDS: ROPINIROLE 0.5 MG PO SCH (19:32)
[2019-03-01] MEDS: [UNRECOGNIZED DRUG - OTHER] PO SCH (19:32)
[2019-03-02] MEDS: Acetaminophen 325 MG Tab PO SCH ×4 (04:00→20:28)
[2019-03-02] MEDS: Multivitamin, Stress Formula with Zinc Tab PO SCH (08:01)
[2019-03-02] MEDS: Famotidine 20 MG Tab PO SCH (08:01)
[2019-03-02] MEDS: GABAPENTIN 100 MG PO SCH ×2 (08:02→12:39)
[2019-03-02] MEDS: SERTRALINE 100 MG PO SCH (08:05)
[2019-03-02] MEDS: [UNRECOGNIZED DRUG - OTHER] PO SCH (08:06)
[2019-03-02] MEDS: [UNRECOGNIZED DRUG - OTHER] PO SCH (08:06)
[2019-03-02] MEDS: Nitrofurantoin Monohydrate/Macrocrystalline 100 MG Cap PO SCH ×2 (10:12→20:28)
[2019-03-02] MEDS: [UNRECOGNIZED DRUG - OTHER] PO SCH (20:28)
[2019-03-02] MEDS: GABAPENTIN 300 MG PO SCH (20:28)
[2019-03-02] MEDS: Melatonin 3 MG Tab PO SCH (20:28)
[2019-03-02] MEDS: ROPINIROLE 0.5 MG PO SCH (20:28)
[2019-03-03] MEDS: Acetaminophen 325 MG Tab PO SCH ×4 (05:20→20:11)
[2019-03-03] MEDS: GABAPENTIN 100 MG PO SCH ×2 (07:32→12:29)
[2019-03-03] MEDS: SERTRALINE 100 MG PO SCH (07:32)
[2019-03-03] MEDS: [UNRECOGNIZED DRUG - OTHER] PO SCH (07:32)
[2019-03-03] MEDS: Famotidine 20 MG Tab PO SCH (07:33)
[2019-03-03] MEDS: Multivitamin, Stress Formula with Zinc Tab PO SCH (07:33)
[2019-03-03] MEDS: Nitrofurantoin Monohydrate/Macrocrystalline 100 MG Cap PO SCH ×2 (07:33→20:11)
[2019-03-03] MEDS: [UNRECOGNIZED DRUG - OTHER] PO SCH (07:37)
[2019-03-03] MEDS: ROPINIROLE 0.5 MG PO SCH (20:12)
[2019-03-03] MEDS: Melatonin 3 MG Tab PO SCH (20:12)
[2019-03-03] MEDS: GABAPENTIN 300 MG PO SCH (20:12)
[2019-03-03] MEDS: WARFARIN PO SCH (20:12)
[2019-03-04] MEDS: Acetaminophen 325 MG Tab PO SCH ×4 (06:08→19:55)
[2019-03-04] MEDS: [UNRECOGNIZED DRUG - OTHER] PO SCH (07:53)
[2019-03-04] MEDS: [UNRECOGNIZED DRUG - OTHER] PO SCH (07:53)
[2019-03-04] MEDS: SERTRALINE 100 MG PO SCH (07:53)
[2019-03-04] MEDS: GABAPENTIN 100 MG PO SCH ×2 (07:53→13:20)
[2019-03-04] MEDS: Nitrofurantoin Monohydrate/Macrocrystalline 100 MG Cap PO SCH ×2 (07:54→19:56)
[2019-03-04] MEDS: Famotidine 20 MG Tab PO SCH (07:54)
[2019-03-04] MEDS: Multivitamin, Stress Formula with Zinc Tab PO SCH (07:55)
[2019-03-04] MEDS: GABAPENTIN 300 MG PO SCH (19:54)
[2019-03-04] MEDS: ROPINIROLE 0.5 MG PO SCH (19:55)
[2019-03-04] MEDS: Melatonin 3 MG Tab PO SCH (19:55)
[2019-03-04] MEDS: [UNRECOGNIZED DRUG - OTHER] PO SCH (19:55)
[2019-03-05] MEDS: Acetaminophen 325 MG Tab PO SCH ×4 (02:57→19:58)
[2019-03-05] MEDS: Famotidine 20 MG Tab PO SCH (07:57)
[2019-03-05] MEDS: GABAPENTIN 100 MG PO SCH ×2 (07:57→12:33)
[2019-03-05] MEDS: [UNRECOGNIZED DRUG - OTHER] PO SCH (07:58)
[2019-03-05] MEDS: Multivitamin, Stress Formula with Zinc Tab PO SCH (07:58)
[2019-03-05] MEDS: SERTRALINE 100 MG PO SCH (07:59)
[2019-03-05] MEDS: [UNRECOGNIZED DRUG - OTHER] PO SCH (07:59)
[2019-03-05] MEDS: Nitrofurantoin Monohydrate/Macrocrystalline 100 MG Cap PO SCH ×2 (08:00→19:57)
[2019-03-05] MEDS: ROPINIROLE 0.5 MG PO SCH (19:57)
[2019-03-05] MEDS: [UNRECOGNIZED DRUG - OTHER] PO SCH (19:58)
[2019-03-05] MEDS: Melatonin 3 MG Tab PO SCH (19:58)
[2019-03-05] MEDS: GABAPENTIN 300 MG PO SCH (19:59)
[2019-03-06] MEDS: Acetaminophen 325 MG Tab PO SCH ×4 (04:00→19:14)
[2019-03-06] MEDS: GABAPENTIN 100 MG PO SCH ×2 (07:26→15:56)
[2019-03-06] MEDS: [UNRECOGNIZED DRUG - OTHER] PO SCH (07:27)
[2019-03-06] MEDS: SERTRALINE 100 MG PO SCH (07:27)
[2019-03-06] MEDS: [UNRECOGNIZED DRUG - OTHER] PO SCH (07:27)
[2019-03-06] MEDS: Famotidine 20 MG Tab PO SCH (07:28)
[2019-03-06] MEDS: Multivitamin, Stress Formula with Zinc Tab PO SCH (07:28)
[2019-03-06] MEDS: Nitrofurantoin Monohydrate/Macrocrystalline 100 MG Cap PO SCH ×2 (07:28→19:14)
[2019-03-06] MEDS: ROPINIROLE 0.5 MG PO SCH (19:13)
[2019-03-06] MEDS: GABAPENTIN 300 MG PO SCH (19:13)
[2019-03-06] MEDS: WARFARIN PO SCH (19:14)
[2019-03-06] MEDS: Melatonin 3 MG Tab PO SCH (19:14)
[2019-03-07] MEDS: Acetaminophen 325 MG Tab PO SCH ×4 (03:42→20:22)
[2019-03-07] MEDS: Nitrofurantoin Monohydrate/Macrocrystalline 100 MG Cap PO SCH ×2 (07:45→20:24)
[2019-03-07] MEDS: [UNRECOGNIZED DRUG - OTHER] PO SCH (07:45)
[2019-03-07] MEDS: SERTRALINE 100 MG PO SCH (07:46)
[2019-03-07] MEDS: [UNRECOGNIZED DRUG - OTHER] PO SCH (07:46)
[2019-03-07] MEDS: GABAPENTIN 100 MG PO SCH ×2 (07:47→12:12)
[2019-03-07] MEDS: Famotidine 20 MG Tab PO SCH (07:48)
[2019-03-07] MEDS: Multivitamin, Stress Formula with Zinc Tab PO SCH (07:48)
[2019-03-07] MEDS: Melatonin 3 MG Tab PO SCH (20:23)
[2019-03-07] MEDS: ROPINIROLE 0.5 MG PO SCH (20:24)
[2019-03-07] MEDS: [UNRECOGNIZED DRUG - OTHER] PO SCH (20:24)
[2019-03-07] MEDS: GABAPENTIN 300 MG PO SCH (20:24)
[2019-03-07] MEDS: Miconazole 2% Top Powder 45 GM Container TOP SCH (20:26)
[2019-03-08] MEDS: Acetaminophen 325 MG Tab PO SCH ×4 (04:32→20:12)
[2019-03-08] MEDS: GABAPENTIN 100 MG PO SCH ×2 (07:57→12:14)
[2019-03-08] MEDS: Famotidine 20 MG Tab PO SCH (07:58)
[2019-03-08] MEDS: [UNRECOGNIZED DRUG - OTHER] PO SCH (07:58)
[2019-03-08] MEDS: Multivitamin, Stress Formula with Zinc Tab PO SCH (07:58)
[2019-03-08] MEDS: SERTRALINE 100 MG PO SCH (07:58)
[2019-03-08] MEDS: [UNRECOGNIZED DRUG - OTHER] PO SCH (07:59)
[2019-03-08] MEDS: Miconazole 2% Top Powder 45 GM Container TOP SCH ×2 (07:59→20:15)
[2019-03-08] MEDS: Nitrofurantoin Monohydrate/Macrocrystalline 100 MG Cap PO SCH ×2 (08:00→20:34)
[2019-03-08] MEDS: GABAPENTIN 300 MG PO SCH (20:10)
[2019-03-08] MEDS: Melatonin 3 MG Tab PO SCH (20:13)
[2019-03-08] MEDS: ROPINIROLE 0.5 MG PO SCH (20:14)
[2019-03-08] MEDS: [UNRECOGNIZED DRUG - OTHER] PO SCH (20:14)
[2019-03-09] MEDS: Acetaminophen 325 MG Tab PO SCH ×4 (04:35→20:33)
[2019-03-09] MEDS: GABAPENTIN 100 MG PO SCH ×2 (07:51→12:35)
[2019-03-09] MEDS: SERTRALINE 100 MG PO SCH (07:52)
[2019-03-09] MEDS: [UNRECOGNIZED DRUG - OTHER] PO SCH (07:52)
[2019-03-09] MEDS: Famotidine 20 MG Tab PO SCH (07:52)
[2019-03-09] MEDS: Multivitamin, Stress Formula with Zinc Tab PO SCH (07:52)
[2019-03-09] MEDS: [UNRECOGNIZED DRUG - OTHER] PO SCH (07:54)
[2019-03-09] MEDS: Miconazole 2% Top Powder 45 GM Container TOP SCH ×2 (07:55→20:38)
[2019-03-09] MEDS: [UNRECOGNIZED DRUG - OTHER] PO SCH (20:32)
[2019-03-09] MEDS: ROPINIROLE 0.5 MG PO SCH (20:33)
[2019-03-09] MEDS: Melatonin 3 MG Tab PO SCH (20:33)
[2019-03-09] MEDS: GABAPENTIN 300 MG PO SCH (20:33)
[2019-03-10] MEDS: Acetaminophen 325 MG Tab PO SCH ×4 (02:28→20:26)
[2019-03-10] MEDS: GABAPENTIN 100 MG PO SCH ×2 (08:14→14:28)
[2019-03-10] MEDS: [UNRECOGNIZED DRUG - OTHER] PO SCH (08:14)
[2019-03-10] MEDS: Famotidine 20 MG Tab PO SCH (08:14)
[2019-03-10] MEDS: SERTRALINE 100 MG PO SCH (08:14)
[2019-03-10] MEDS: Multivitamin, Stress Formula with Zinc Tab PO SCH (08:14)
[2019-03-10] MEDS: [UNRECOGNIZED DRUG - OTHER] PO SCH (08:15)
[2019-03-10] MEDS: Miconazole 2% Top Powder 45 GM Container TOP SCH ×2 (08:15→20:27)
[2019-03-10] MEDS: GABAPENTIN 300 MG PO SCH (20:25)
[2019-03-10] MEDS: ROPINIROLE 0.5 MG PO SCH (20:26)
[2019-03-10] MEDS: Melatonin 3 MG Tab PO SCH (20:26)
[2019-03-10] MEDS: WARFARIN PO SCH (20:26)
[2019-03-11] MEDS: Acetaminophen 325 MG Tab PO SCH ×4 (05:00→20:11)
[2019-03-11] MEDS: Miconazole 2% Top Powder 45 GM Container TOP SCH ×2 (08:23→20:13)
[2019-03-11] MEDS: SERTRALINE 100 MG PO SCH (08:24)
[2019-03-11] MEDS: [UNRECOGNIZED DRUG - OTHER] PO SCH (08:24)
[2019-03-11] MEDS: GABAPENTIN 100 MG PO SCH ×2 (08:25→12:46)
[2019-03-11] MEDS: Famotidine 20 MG Tab PO SCH (08:25)
[2019-03-11] MEDS: [UNRECOGNIZED DRUG - OTHER] PO SCH (08:25)
[2019-03-11] MEDS: Multivitamin, Stress Formula with Zinc Tab PO SCH (08:25)
--- NOTE | 2019-03-11 14:48 | PCM.PN ---
- General Info Date of Service: 03/11/19 Subjective Update: Subjective: 60 day recheck. No complaints. No memory or cardiopulmonary issues. No bowel or bladder issues. Vital signs are stable. INR bit labile but okay. She has had a couple dermatology issues, she had an SK removed from her left neck, benign biopsy. She is using some antifungal powder for intertrigo and this is improving. Objective: Vital signs are normal. Alert smiling and oriented well groomed. Recently her hair done. Heart and lungs clear to auscultation. Abdomen soft nontender. External is warm well perfused without edema. Assment and plan: No changes in chronic health issues Recent derm issues improved per above She has no other concerns or questions at this time - Patient Data Vitals - Most Recent: Last Vital Signs Temp 36.6 C 03/07/19 08:00 Pulse 83 03/11/19 08:24 Resp 20 03/07/19 08:00 BP 143/73 H 03/11/19 08:24 Pulse Ox 94 L 03/07/19 08:00 Weight - Most Recent: 84.005 kg I&O - Last 24 Hours: Intake & Output 03/10/19 03/11/19 03/11/19 22:59 06:59 14:59 Intake Total 360 Balance 360 Med Orders - Current: Current Medications Acetaminophen (Tylenol) 650 mg PO 0200,0800,1300,2000 [facility] Last Admin: 03/11/19 12:47 Dose: 650 mg Calcium Carbonate/Glycine (Tums Extra Strength) 750 mg PO TID PRN PRN Reason: Dyspepsia Last Admin: 02/02/19 10:06 Dose: 750 mg Docusate Sodium (Colace) 100 mg PO DAILY PRN PRN Reason: Constipation Famotidine (Pepcid) 20 mg PO DAILY [facility] Last Admin: 03/11/19 08:25 Dose: 20 mg Furosemide (Lasix) 20 mg PO DAILY [facility] Last Admin: 03/11/19 08:25 Dose: 20 mg Gabapentin (Neurontin) 100 mg PO BID@0800,1300 [facility] Last Admin: 03/11/19 12:46 Dose: 100 mg Gabapentin (Neurontin) 300 mg PO BEDTIME [facility] Last Admin: 03/10/19 20:25 Dose: 300 mg Melatonin (Melatonin) 6 mg PO BEDTIME [facility] Last Admin: 10/28/19 20:26 Dose: 6 mg Metoprolol Succinate (Toprol Xl) 25 mg PO DAILY [facility] Last Admin: 03/11/19 08:24 Dose: 25 mg Miconazole (Desenex 2%) 1 gm TOP BID [facility] Last Admin: 03/11/19 08:23 Dose: 1 applic Nitroglycerin (Nitrostat) 0.4 mg SL Q5M PRN PRN Reason: Chest Pain Last Admin: 12/28/18 18:18 Dose: 0.4 mg Pharmacy Consult (Consult To Pharmacy) 1 each .XX ASDIRECTED [facility] Polyethylene Glycol (Miralax) 17 gm PO DAILY PRN PRN Reason: Constipation Ropinirole HCl (Requip) 0.5 mg PO BEDTIME [facility] Last Admin: 03/10/19 20:26 Dose: 0.5 mg Senna/Docusate Sodium (Senna Plus) 1 tab PO DAILY PRN PRN Reason: Constipation Sertraline HCl (Zoloft) 100 mg PO DAILY [facility] Last Admin: 03/11/19 08:24 Dose: 100 mg Vitamin B Complex/Vit C/Vit E/Zinc (Stress Formula With Zinc) 1 tab PO DAILY [facility] Last Admin: 03/11/19 08:25 Dose: 1 tab Warfarin Sodium (Coumadin) 2.5 mg PO MoTh@1999 [facility] Last Admin: 03/10/19 20:26 Dose: 2.5 mg Warfarin Sodium (Coumadin) 5 mg PO SuTuWeFrSa@1999 [facility] Last Admin: 03/09/19 20:32 Dose: 5 mg Discontinued Medications Furosemide (Lasix) 20 mg PO DAILY [facility] Last Admin: 02/04/19 08:18 Dose: 20 mg Gabapentin (Neurontin) 100 mg PO BID@0800,1300 [facility] Last Admin: 02/04/19 13:48 Dose: 100 mg Influenza Virus Vaccine (Fluzone High-Dose 2018- Syringe) 180 mcg IM .ONCE ONE Stop: 02/11/19 14:01 Last Admin: 02/11/19 13:57 Dose: 180 mcg Nitrofurantoin Macrocrystals (Macrobid) 100 mg PO BID [facility] Stop: 03/08/19 20:00 Last Admin: 03/04/19 07:54 Dose: 100 mg Nitrofurantoin Macrocrystals (Macrobid) 100 mg PO BID [facility] Stop: 03/08/19 20:01 Last Admin: 03/08/19 20:34 Dose: 100 mg Own Supply: Warfarin 2.5mg (1/2 Of 5mg Tab) 0 mg PO MoTh@1999 [facility] Last Admin: 02/03/19 19:37 Dose: 2.5 mg Own Supply: Warfarin (. 5mg) 0 mg PO SuTuWeFrSa@1999 [facility] Last Admin: 02/02/19 19:43 Dose: 5 mg Own Supply: (Gabapentin. 300mg) 0 mg PO BEDTIME [facility] Last Admin: 02/03/19 19:36 Dose: 300 mg Own Supply: (Metoprolol.Er 25mg) 0 mg PO DAILY [facility] Last Admin: 02/04/19 08:17 Dose: 25 mg Polyethylene Glycol (Miralax) 17 gm PO DAILY [facility] Last Admin: 12/18/18 08:17 Dose: Not Given Ropinirole HCl (Requip) 0.5 mg PO BEDTIME [facility] Last Admin: 02/03/19 19:37 Dose: 0.5 mg - Problem List Review Problem List Initiated/Reviewed/Updated: Yes
[2019-03-11] MEDS: Melatonin 3 MG Tab PO SCH (20:11)
[2019-03-11] MEDS: GABAPENTIN 300 MG PO SCH (20:11)
[2019-03-11] MEDS: [UNRECOGNIZED DRUG - OTHER] PO SCH (20:12)
[2019-03-11] MEDS: ROPINIROLE 0.5 MG PO SCH (20:12)
[2019-03-12] MEDS: Acetaminophen 325 MG Tab PO SCH ×4 (04:28→19:55)
[2019-03-12] MEDS: Famotidine 20 MG Tab PO SCH (07:48)
[2019-03-12] MEDS: Multivitamin, Stress Formula with Zinc Tab PO SCH (07:48)
[2019-03-12] MEDS: [UNRECOGNIZED DRUG - OTHER] PO SCH (07:49)
[2019-03-12] MEDS: GABAPENTIN 100 MG PO SCH ×2 (07:49→13:32)
[2019-03-12] MEDS: SERTRALINE 100 MG PO SCH (07:49)
[2019-03-12] MEDS: [UNRECOGNIZED DRUG - OTHER] PO SCH (07:49)
[2019-03-12] MEDS: Miconazole 2% Top Powder 45 GM Container TOP SCH ×2 (07:50→19:59)
[2019-03-12] MEDS: GABAPENTIN 300 MG PO SCH (19:54)
[2019-03-12] MEDS: [UNRECOGNIZED DRUG - OTHER] PO SCH (19:55)
[2019-03-12] MEDS: ROPINIROLE 0.5 MG PO SCH (19:55)
[2019-03-12] MEDS: Melatonin 3 MG Tab PO SCH (19:59)
[2019-03-13] MEDS: Acetaminophen 325 MG Tab PO SCH ×4 (03:29→20:16)
[2019-03-13] MEDS: Multivitamin, Stress Formula with Zinc Tab PO SCH (07:38)
[2019-03-13] MEDS: Famotidine 20 MG Tab PO SCH (07:38)
[2019-03-13] MEDS: GABAPENTIN 100 MG PO SCH ×2 (07:39→13:12)
[2019-03-13] MEDS: [UNRECOGNIZED DRUG - OTHER] PO SCH (07:39)
[2019-03-13] MEDS: [UNRECOGNIZED DRUG - OTHER] PO SCH (07:39)
[2019-03-13] MEDS: SERTRALINE 100 MG PO SCH (07:40)
[2019-03-13] MEDS: Miconazole 2% Top Powder 45 GM Container TOP SCH ×2 (07:41→20:17)
[2019-03-13] MEDS: GABAPENTIN 300 MG PO SCH (20:15)
[2019-03-13] MEDS: WARFARIN PO SCH (20:15)
[2019-03-13] MEDS: ROPINIROLE 0.5 MG PO SCH (20:16)
[2019-03-13] MEDS: Melatonin 3 MG Tab PO SCH (20:16)
[2019-03-14] MEDS: Acetaminophen 325 MG Tab PO SCH ×4 (05:54→20:04)
[2019-03-14] MEDS: GABAPENTIN 100 MG PO SCH ×2 (07:55→13:52)
[2019-03-14] MEDS: [UNRECOGNIZED DRUG - OTHER] PO SCH (07:55)
[2019-03-14] MEDS: SERTRALINE 100 MG PO SCH (07:56)
[2019-03-14] MEDS: Multivitamin, Stress Formula with Zinc Tab PO SCH (07:56)
[2019-03-14] MEDS: Famotidine 20 MG Tab PO SCH (07:56)
[2019-03-14] MEDS: [UNRECOGNIZED DRUG - OTHER] PO SCH (07:56)
[2019-03-14] MEDS: Miconazole 2% Top Powder 45 GM Container TOP SCH ×2 (07:56→20:04)
[2019-03-14] MEDS: GABAPENTIN 300 MG PO SCH (20:02)
[2019-03-14] MEDS: ROPINIROLE 0.5 MG PO SCH (20:03)
[2019-03-14] MEDS: [UNRECOGNIZED DRUG - OTHER] PO SCH (20:03)
[2019-03-14] MEDS: Melatonin 3 MG Tab PO SCH (20:04)
[2019-03-15] MEDS: Acetaminophen 325 MG Tab PO SCH ×4 (06:12→20:04)
[2019-03-15] MEDS: GABAPENTIN 100 MG PO SCH ×2 (07:37→14:02)
[2019-03-15] MEDS: Famotidine 20 MG Tab PO SCH (07:38)
[2019-03-15] MEDS: [UNRECOGNIZED DRUG - OTHER] PO SCH (07:38)
[2019-03-15] MEDS: Multivitamin, Stress Formula with Zinc Tab PO SCH (07:38)
[2019-03-15] MEDS: SERTRALINE 100 MG PO SCH (07:38)
[2019-03-15] MEDS: Miconazole 2% Top Powder 45 GM Container TOP SCH ×2 (07:38→20:05)
[2019-03-15] MEDS: [UNRECOGNIZED DRUG - OTHER] PO SCH (07:38)
[2019-03-15] MEDS: GABAPENTIN 300 MG PO SCH (20:02)
[2019-03-15] MEDS: ROPINIROLE 0.5 MG PO SCH (20:03)
[2019-03-15] MEDS: [UNRECOGNIZED DRUG - OTHER] PO SCH (20:03)
[2019-03-15] MEDS: Melatonin 3 MG Tab PO SCH (20:04)
[2019-03-16] MEDS: Acetaminophen 325 MG Tab PO SCH ×4 (05:52→21:00)
[2019-03-16] MEDS: [UNRECOGNIZED DRUG - OTHER] PO SCH (08:57)
[2019-03-16] MEDS: GABAPENTIN 100 MG PO SCH ×2 (08:57→13:33)
[2019-03-16] MEDS: SERTRALINE 100 MG PO SCH (08:58)
[2019-03-16] MEDS: [UNRECOGNIZED DRUG - OTHER] PO SCH (08:58)
[2019-03-16] MEDS: Miconazole 2% Top Powder 45 GM Container TOP SCH ×2 (08:58→21:00)
[2019-03-16] MEDS: Famotidine 20 MG Tab PO SCH (08:58)
[2019-03-16] MEDS: Multivitamin, Stress Formula with Zinc Tab PO SCH (08:58)
[2019-03-16] MEDS: Melatonin 3 MG Tab PO SCH (21:00)
[2019-03-16] MEDS: [UNRECOGNIZED DRUG - OTHER] PO SCH (21:00)
[2019-03-16] MEDS: ROPINIROLE 0.5 MG PO SCH (21:00)
[2019-03-16] MEDS: GABAPENTIN 300 MG PO SCH (21:00)
[2019-03-17] MEDS: Acetaminophen 325 MG Tab PO SCH ×4 (05:21→20:06)
[2019-03-17] MEDS: [UNRECOGNIZED DRUG - OTHER] PO SCH (07:55)
[2019-03-17] MEDS: [UNRECOGNIZED DRUG - OTHER] PO SCH (07:55)
[2019-03-17] MEDS: SERTRALINE 100 MG PO SCH (07:56)
[2019-03-17] MEDS: GABAPENTIN 100 MG PO SCH ×2 (07:57→12:07)
[2019-03-17] MEDS: Multivitamin, Stress Formula with Zinc Tab PO SCH (07:57)
[2019-03-17] MEDS: Famotidine 20 MG Tab PO SCH (07:57)
[2019-03-17] MEDS: Miconazole 2% Top Powder 45 GM Container TOP SCH ×2 (07:58→20:06)
[2019-03-17] MEDS: GABAPENTIN 300 MG PO SCH (20:05)
[2019-03-17] MEDS: WARFARIN PO SCH (20:05)
[2019-03-17] MEDS: Melatonin 3 MG Tab PO SCH (20:06)
[2019-03-17] MEDS: ROPINIROLE 0.5 MG PO SCH (20:06)
[2019-03-18] MEDS: Acetaminophen 325 MG Tab PO SCH ×4 (02:12→19:39)
[2019-03-18] MEDS: Multivitamin, Stress Formula with Zinc Tab PO SCH (07:49)
[2019-03-18] MEDS: Famotidine 20 MG Tab PO SCH (07:49)
[2019-03-18] MEDS: [UNRECOGNIZED DRUG - OTHER] PO SCH (07:50)
[2019-03-18] MEDS: Miconazole 2% Top Powder 45 GM Container TOP SCH ×2 (07:50→19:40)
[2019-03-18] MEDS: [UNRECOGNIZED DRUG - OTHER] PO SCH (07:50)
[2019-03-18] MEDS: GABAPENTIN 100 MG PO SCH ×2 (07:50→13:26)
[2019-03-18] MEDS: SERTRALINE 100 MG PO SCH (07:50)
[2019-03-18] MEDS: GABAPENTIN 300 MG PO SCH (19:37)
[2019-03-18] MEDS: ROPINIROLE 0.5 MG PO SCH (19:38)
[2019-03-18] MEDS: Melatonin 3 MG Tab PO SCH (19:39)
[2019-03-18] MEDS: [UNRECOGNIZED DRUG - OTHER] PO SCH (19:39)
[2019-03-19] MEDS: Acetaminophen 325 MG Tab PO SCH ×4 (04:50→20:19)
[2019-03-19] MEDS: GABAPENTIN 100 MG PO SCH ×2 (07:46→12:08)
[2019-03-19] MEDS: [UNRECOGNIZED DRUG - OTHER] PO SCH (07:46)
[2019-03-19] MEDS: SERTRALINE 100 MG PO SCH (07:47)
[2019-03-19] MEDS: [UNRECOGNIZED DRUG - OTHER] PO SCH (07:47)
[2019-03-19] MEDS: Miconazole 2% Top Powder 45 GM Container TOP SCH ×2 (07:47→20:18)
[2019-03-19] MEDS: Multivitamin, Stress Formula with Zinc Tab PO SCH (07:48)
[2019-03-19] MEDS: Famotidine 20 MG Tab PO SCH (07:48)
[2019-03-19] MEDS: GABAPENTIN 300 MG PO SCH (20:18)
[2019-03-19] MEDS: ROPINIROLE 0.5 MG PO SCH (20:19)
[2019-03-19] MEDS: Melatonin 3 MG Tab PO SCH (20:19)
[2019-03-19] MEDS: [UNRECOGNIZED DRUG - OTHER] PO SCH (20:19)
[2019-03-20] MEDS: Acetaminophen 325 MG Tab PO SCH ×4 (06:16→20:25)
[2019-03-20] MEDS: GABAPENTIN 100 MG PO SCH ×2 (08:30→12:15)
[2019-03-20] MEDS: SERTRALINE 100 MG PO SCH (08:31)
[2019-03-20] MEDS: [UNRECOGNIZED DRUG - OTHER] PO SCH (08:31)
[2019-03-20] MEDS: Multivitamin, Stress Formula with Zinc Tab PO SCH (08:31)
[2019-03-20] MEDS: Famotidine 20 MG Tab PO SCH (08:32)
[2019-03-20] MEDS: [UNRECOGNIZED DRUG - OTHER] PO SCH (08:32)
[2019-03-20] MEDS: Miconazole 2% Top Powder 45 GM Container TOP SCH ×2 (08:33→20:28)
[2019-03-20] MEDS: Melatonin 3 MG Tab PO SCH (20:25)
[2019-03-20] MEDS: GABAPENTIN 300 MG PO SCH (20:26)
[2019-03-20] MEDS: ROPINIROLE 0.5 MG PO SCH (20:27)
[2019-03-20] MEDS: WARFARIN PO SCH (20:27)
[2019-03-21] MEDS: Acetaminophen 325 MG Tab PO SCH ×4 (06:08→20:06)
[2019-03-21] MEDS: GABAPENTIN 100 MG PO SCH ×2 (08:50→12:40)
[2019-03-21] MEDS: [UNRECOGNIZED DRUG - OTHER] PO SCH (08:51)
[2019-03-21] MEDS: Multivitamin, Stress Formula with Zinc Tab PO SCH (08:51)
[2019-03-21] MEDS: Famotidine 20 MG Tab PO SCH (08:51)
[2019-03-21] MEDS: Miconazole 2% Top Powder 45 GM Container TOP SCH ×2 (08:52→20:05)
[2019-03-21] MEDS: SERTRALINE 100 MG PO SCH (08:52)
[2019-03-21] MEDS: [UNRECOGNIZED DRUG - OTHER] PO SCH (08:52)
[2019-03-21] MEDS: Melatonin 3 MG Tab PO SCH (20:05)
[2019-03-21] MEDS: [UNRECOGNIZED DRUG - OTHER] PO SCH (20:05)
[2019-03-21] MEDS: ROPINIROLE 0.5 MG PO SCH (20:06)
[2019-03-21] MEDS: GABAPENTIN 300 MG PO SCH (20:06)
[2019-03-22] MEDS: Acetaminophen 325 MG Tab PO SCH ×4 (06:18→20:25)
[2019-03-22] MEDS: Miconazole 2% Top Powder 45 GM Container TOP SCH ×2 (08:04→20:23)
[2019-03-22] MEDS: [UNRECOGNIZED DRUG - OTHER] PO SCH (08:05)
[2019-03-22] MEDS: [UNRECOGNIZED DRUG - OTHER] PO SCH (08:05)
[2019-03-22] MEDS: SERTRALINE 100 MG PO SCH (08:05)
[2019-03-22] MEDS: Famotidine 20 MG Tab PO SCH (08:06)
[2019-03-22] MEDS: Multivitamin, Stress Formula with Zinc Tab PO SCH (08:06)
[2019-03-22] MEDS: GABAPENTIN 100 MG PO SCH ×2 (08:07→12:30)
[2019-03-22] MEDS: ROPINIROLE 0.5 MG PO SCH (20:23)
[2019-03-22] MEDS: [UNRECOGNIZED DRUG - OTHER] PO SCH (20:23)
[2019-03-22] MEDS: GABAPENTIN 300 MG PO SCH (20:23)
[2019-03-22] MEDS: Melatonin 3 MG Tab PO SCH (20:25)
[2019-03-23] MEDS: Acetaminophen 325 MG Tab PO SCH ×4 (05:26→20:25)
[2019-03-23] MEDS: Famotidine 20 MG Tab PO SCH (07:31)
[2019-03-23] MEDS: Multivitamin, Stress Formula with Zinc Tab PO SCH (07:31)
[2019-03-23] MEDS: [UNRECOGNIZED DRUG - OTHER] PO SCH (07:32)
[2019-03-23] MEDS: SERTRALINE 100 MG PO SCH (07:33)
[2019-03-23] MEDS: GABAPENTIN 100 MG PO SCH ×2 (07:33→12:25)
[2019-03-23] MEDS: [UNRECOGNIZED DRUG - OTHER] PO SCH (07:33)
[2019-03-23] MEDS: Miconazole 2% Top Powder 45 GM Container TOP SCH ×2 (07:34→20:26)
[2019-03-23] MEDS: ROPINIROLE 0.5 MG PO SCH (20:25)
[2019-03-23] MEDS: [UNRECOGNIZED DRUG - OTHER] PO SCH (20:25)
[2019-03-23] MEDS: Melatonin 3 MG Tab PO SCH (20:25)
[2019-03-23] MEDS: GABAPENTIN 300 MG PO SCH (20:26)
[2019-03-24] MEDS: Acetaminophen 325 MG Tab PO SCH ×4 (03:23→20:44)
[2019-03-24] MEDS: Famotidine 20 MG Tab PO SCH (07:30)
[2019-03-24] MEDS: GABAPENTIN 100 MG PO SCH ×2 (07:30→12:23)
[2019-03-24] MEDS: Multivitamin, Stress Formula with Zinc Tab PO SCH (07:30)
[2019-03-24] MEDS: [UNRECOGNIZED DRUG - OTHER] PO SCH (07:30)
[2019-03-24] MEDS: SERTRALINE 100 MG PO SCH (07:31)
[2019-03-24] MEDS: Miconazole 2% Top Powder 45 GM Container TOP SCH ×2 (07:31→20:49)
[2019-03-24] MEDS: [UNRECOGNIZED DRUG - OTHER] PO SCH (07:31)
[2019-03-24] MEDS: NITROGLYCERIN 0.4 MG SL PRN (18:01)
[2019-03-24] MEDS: Melatonin 3 MG Tab PO SCH (20:43)
[2019-03-24] MEDS: GABAPENTIN 300 MG PO SCH (20:44)
[2019-03-24] MEDS: WARFARIN PO SCH (20:45)
[2019-03-24] MEDS: ROPINIROLE 0.5 MG PO SCH (20:45)
[2019-03-25] MEDS: Acetaminophen 325 MG Tab PO SCH ×4 (06:12→19:49)
[2019-03-25] MEDS: [UNRECOGNIZED DRUG - OTHER] PO SCH (07:49)
[2019-03-25] MEDS: Miconazole 2% Top Powder 45 GM Container TOP SCH ×2 (07:49→19:50)
[2019-03-25] MEDS: GABAPENTIN 100 MG PO SCH ×2 (07:49→12:15)
[2019-03-25] MEDS: [UNRECOGNIZED DRUG - OTHER] PO SCH (07:50)
[2019-03-25] MEDS: Multivitamin, Stress Formula with Zinc Tab PO SCH (07:50)
[2019-03-25] MEDS: SERTRALINE 100 MG PO SCH (07:50)
[2019-03-25] MEDS: Famotidine 20 MG Tab PO SCH (07:51)
[2019-03-25] MEDS: ROPINIROLE 0.5 MG PO SCH (19:48)
[2019-03-25] MEDS: Melatonin 3 MG Tab PO SCH (19:48)
[2019-03-25] MEDS: [UNRECOGNIZED DRUG - OTHER] PO SCH (19:48)
[2019-03-25] MEDS: GABAPENTIN 300 MG PO SCH (19:48)
[2019-03-26] MEDS: Acetaminophen 325 MG Tab PO SCH ×4 (06:09→20:17)
[2019-03-26] MEDS: GABAPENTIN 100 MG PO SCH ×2 (09:18→12:00)
[2019-03-26] MEDS: SERTRALINE 100 MG PO SCH (09:19)
[2019-03-26] MEDS: Famotidine 20 MG Tab PO SCH (09:19)
[2019-03-26] MEDS: [UNRECOGNIZED DRUG - OTHER] PO SCH (09:19)
[2019-03-26] MEDS: Multivitamin, Stress Formula with Zinc Tab PO SCH (09:19)
[2019-03-26] MEDS: [UNRECOGNIZED DRUG - OTHER] PO SCH (09:20)
[2019-03-26] MEDS: Miconazole 2% Top Powder 45 GM Container TOP SCH (09:20)
[2019-03-26] MEDS: [UNRECOGNIZED DRUG - OTHER] PO SCH (20:17)
[2019-03-26] MEDS: GABAPENTIN 300 MG PO SCH (20:17)
[2019-03-26] MEDS: ROPINIROLE 0.5 MG PO SCH (20:17)
[2019-03-26] MEDS: Melatonin 3 MG Tab PO SCH (20:17)
[2019-03-27] MEDS: Acetaminophen 325 MG Tab PO SCH ×4 (01:48→20:50)
[2019-03-27] MEDS: GABAPENTIN 100 MG PO SCH ×2 (08:19→13:52)
[2019-03-27] MEDS: Famotidine 20 MG Tab PO SCH (08:20)
[2019-03-27] MEDS: Multivitamin, Stress Formula with Zinc Tab PO SCH (08:20)
[2019-03-27] MEDS: [UNRECOGNIZED DRUG - OTHER] PO SCH (08:20)
[2019-03-27] MEDS: SERTRALINE 100 MG PO SCH (08:21)
[2019-03-27] MEDS: [UNRECOGNIZED DRUG - OTHER] PO SCH (08:21)
[2019-03-27] MEDS: Melatonin 3 MG Tab PO SCH (20:50)
[2019-03-27] MEDS: ROPINIROLE 0.5 MG PO SCH (20:50)
[2019-03-27] MEDS: WARFARIN PO SCH (20:50)
[2019-03-27] MEDS: GABAPENTIN 300 MG PO SCH (20:50)
[2019-03-28] MEDS: Acetaminophen 325 MG Tab PO SCH ×4 (03:34→20:42)
[2019-03-28] MEDS: Multivitamin, Stress Formula with Zinc Tab PO SCH (07:59)
[2019-03-28] MEDS: Famotidine 20 MG Tab PO SCH (07:59)
[2019-03-28] MEDS: [UNRECOGNIZED DRUG - OTHER] PO SCH (07:59)
[2019-03-28] MEDS: SERTRALINE 100 MG PO SCH (08:00)
[2019-03-28] MEDS: GABAPENTIN 100 MG PO SCH ×2 (08:00→12:25)
[2019-03-28] MEDS: Miconazole 2% Top Powder 45 GM Container TOP PRN ×2 (08:00→20:42)
[2019-03-28] MEDS: [UNRECOGNIZED DRUG - OTHER] PO SCH (08:00)
[2019-03-28] MEDS: GABAPENTIN 300 MG PO SCH (20:40)
[2019-03-28] MEDS: ROPINIROLE 0.5 MG PO SCH (20:41)
[2019-03-28] MEDS: [UNRECOGNIZED DRUG - OTHER] PO SCH (20:41)
[2019-03-28] MEDS: Melatonin 3 MG Tab PO SCH (20:42)
[2019-03-29] MEDS: Acetaminophen 325 MG Tab PO SCH ×4 (03:34→20:01)
[2019-03-29] MEDS: Famotidine 20 MG Tab PO SCH (08:41)
[2019-03-29] MEDS: GABAPENTIN 100 MG PO SCH ×2 (08:41→12:21)
[2019-03-29] MEDS: Multivitamin, Stress Formula with Zinc Tab PO SCH (08:41)
[2019-03-29] MEDS: [UNRECOGNIZED DRUG - OTHER] PO SCH (08:42)
[2019-03-29] MEDS: SERTRALINE 100 MG PO SCH (08:42)
[2019-03-29] MEDS: [UNRECOGNIZED DRUG - OTHER] PO SCH (08:43)
[2019-03-29] MEDS: Miconazole 2% Top Powder 45 GM Container TOP PRN (08:43)
[2019-03-29] MEDS: GABAPENTIN 300 MG PO SCH (20:00)
[2019-03-29] MEDS: ROPINIROLE 0.5 MG PO SCH (20:01)
[2019-03-29] MEDS: Melatonin 3 MG Tab PO SCH (20:01)
[2019-03-29] MEDS: [UNRECOGNIZED DRUG - OTHER] PO SCH (20:02)
[2019-03-30] MEDS: Acetaminophen 325 MG Tab PO SCH ×4 (05:41→19:49)
[2019-03-30] MEDS: Multivitamin, Stress Formula with Zinc Tab PO SCH (07:48)
[2019-03-30] MEDS: Famotidine 20 MG Tab PO SCH (07:48)
[2019-03-30] MEDS: GABAPENTIN 100 MG PO SCH ×2 (07:49→12:30)
[2019-03-30] MEDS: [UNRECOGNIZED DRUG - OTHER] PO SCH (07:51)
[2019-03-30] MEDS: SERTRALINE 100 MG PO SCH (07:51)
[2019-03-30] MEDS: [UNRECOGNIZED DRUG - OTHER] PO SCH (07:52)
[2019-03-30] MEDS: GABAPENTIN 300 MG PO SCH (19:49)
[2019-03-30] MEDS: [UNRECOGNIZED DRUG - OTHER] PO SCH (19:49)
[2019-03-30] MEDS: ROPINIROLE 0.5 MG PO SCH (19:50)
[2019-03-30] MEDS: Melatonin 3 MG Tab PO SCH (19:50)
[2019-03-31] MEDS: Acetaminophen 325 MG Tab PO SCH ×4 (04:33→19:54)
[2019-03-31] MEDS: Famotidine 20 MG Tab PO SCH (08:31)
[2019-03-31] MEDS: Multivitamin, Stress Formula with Zinc Tab PO SCH (08:31)
[2019-03-31] MEDS: [UNRECOGNIZED DRUG - OTHER] PO SCH (08:33)
[2019-03-31] MEDS: GABAPENTIN 100 MG PO SCH ×2 (08:33→12:45)
[2019-03-31] MEDS: SERTRALINE 100 MG PO SCH (08:33)
[2019-03-31] MEDS: [UNRECOGNIZED DRUG - OTHER] PO SCH (08:34)
[2019-03-31] MEDS: Melatonin 3 MG Tab PO SCH (19:54)
[2019-03-31] MEDS: GABAPENTIN 300 MG PO SCH (19:54)
[2019-03-31] MEDS: ROPINIROLE 0.5 MG PO SCH (19:55)
[2019-03-31] MEDS: WARFARIN PO SCH (19:55)
[2019-04-01] MEDS: Acetaminophen 325 MG Tab PO SCH ×4 (03:05→19:53)
[2019-04-01] MEDS: Multivitamin, Stress Formula with Zinc Tab PO SCH (10:06)
[2019-04-01] MEDS: GABAPENTIN 100 MG PO SCH ×2 (10:06→12:44)
[2019-04-01] MEDS: Famotidine 20 MG Tab PO SCH (10:07)
[2019-04-01] MEDS: [UNRECOGNIZED DRUG - OTHER] PO SCH (10:07)
[2019-04-01] MEDS: [UNRECOGNIZED DRUG - OTHER] PO SCH (10:07)
[2019-04-01] MEDS: SERTRALINE 100 MG PO SCH (10:08)
[2019-04-01] MEDS: GABAPENTIN 300 MG PO SCH (19:53)
[2019-04-01] MEDS: Melatonin 3 MG Tab PO SCH (19:55)
[2019-04-01] MEDS: [UNRECOGNIZED DRUG - OTHER] PO SCH (19:55)
[2019-04-01] MEDS: ROPINIROLE 0.5 MG PO SCH (19:55)
[2019-04-02] MEDS: Acetaminophen 325 MG Tab PO SCH ×4 (04:36→20:45)
[2019-04-02] MEDS: GABAPENTIN 100 MG PO SCH ×2 (08:02→13:33)
[2019-04-02] MEDS: Multivitamin, Stress Formula with Zinc Tab PO SCH (08:03)
[2019-04-02] MEDS: Famotidine 20 MG Tab PO SCH (08:03)
[2019-04-02] MEDS: [UNRECOGNIZED DRUG - OTHER] PO SCH (08:04)
[2019-04-02] MEDS: [UNRECOGNIZED DRUG - OTHER] PO SCH (08:04)
[2019-04-02] MEDS: SERTRALINE 100 MG PO SCH (08:04)
[2019-04-02] MEDS: GABAPENTIN 300 MG PO SCH (20:44)
[2019-04-02] MEDS: [UNRECOGNIZED DRUG - OTHER] PO SCH (20:45)
[2019-04-02] MEDS: Melatonin 3 MG Tab PO SCH (20:46)
[2019-04-02] MEDS: ROPINIROLE 0.5 MG PO SCH (20:46)
[2019-04-03] MEDS: Acetaminophen 325 MG Tab PO SCH ×4 (03:22→21:09)
[2019-04-03] MEDS: Famotidine 20 MG Tab PO SCH (08:57)
[2019-04-03] MEDS: [UNRECOGNIZED DRUG - OTHER] PO SCH (08:57)
[2019-04-03] MEDS: SERTRALINE 100 MG PO SCH (08:57)
[2019-04-03] MEDS: GABAPENTIN 100 MG PO SCH ×2 (08:57→12:42)
[2019-04-03] MEDS: Multivitamin, Stress Formula with Zinc Tab PO SCH (08:57)
[2019-04-03] MEDS: [UNRECOGNIZED DRUG - OTHER] PO SCH (08:58)
[2019-04-03] MEDS: ROPINIROLE 0.5 MG PO SCH (21:09)
[2019-04-03] MEDS: WARFARIN PO SCH (21:09)
[2019-04-03] MEDS: Melatonin 3 MG Tab PO SCH (21:09)
[2019-04-03] MEDS: GABAPENTIN 300 MG PO SCH (21:09)
[2019-04-04] MEDS: Acetaminophen 325 MG Tab PO SCH ×4 (01:08→21:10)
[2019-04-04] MEDS: GABAPENTIN 100 MG PO SCH ×2 (08:14→12:36)
[2019-04-04] MEDS: Multivitamin, Stress Formula with Zinc Tab PO SCH (08:15)
[2019-04-04] MEDS: Famotidine 20 MG Tab PO SCH (08:15)
[2019-04-04] MEDS: [UNRECOGNIZED DRUG - OTHER] PO SCH (08:15)
[2019-04-04] MEDS: [UNRECOGNIZED DRUG - OTHER] PO SCH (08:15)
[2019-04-04] MEDS: SERTRALINE 100 MG PO SCH (08:16)
[2019-04-04] MEDS: Melatonin 3 MG Tab PO SCH (21:10)
[2019-04-04] MEDS: ROPINIROLE 0.5 MG PO SCH (21:11)
[2019-04-04] MEDS: [UNRECOGNIZED DRUG - OTHER] PO SCH (21:11)
[2019-04-04] MEDS: GABAPENTIN 300 MG PO SCH (21:11)
[2019-04-05] MEDS: Acetaminophen 325 MG Tab PO SCH ×4 (02:18→21:24)
[2019-04-05] MEDS: GABAPENTIN 100 MG PO SCH ×2 (07:22→13:20)
[2019-04-05] MEDS: [UNRECOGNIZED DRUG - OTHER] PO SCH (07:22)
[2019-04-05] MEDS: [UNRECOGNIZED DRUG - OTHER] PO SCH (07:23)
[2019-04-05] MEDS: SERTRALINE 100 MG PO SCH (07:23)
[2019-04-05] MEDS: Multivitamin, Stress Formula with Zinc Tab PO SCH (07:24)
[2019-04-05] MEDS: Famotidine 20 MG Tab PO SCH (07:24)
[2019-04-05] MEDS: Melatonin 3 MG Tab PO SCH (21:24)
[2019-04-05] MEDS: GABAPENTIN 300 MG PO SCH (21:24)
[2019-04-05] MEDS: ROPINIROLE 0.5 MG PO SCH (21:24)
[2019-04-05] MEDS: [UNRECOGNIZED DRUG - OTHER] PO SCH (21:24)
[2019-04-06] MEDS: Acetaminophen 325 MG Tab PO SCH ×4 (01:51→21:00)
[2019-04-06] MEDS: GABAPENTIN 100 MG PO SCH ×2 (09:42→12:06)
[2019-04-06] MEDS: Multivitamin, Stress Formula with Zinc Tab PO SCH (09:43)
[2019-04-06] MEDS: SERTRALINE 100 MG PO SCH (09:43)
[2019-04-06] MEDS: Famotidine 20 MG Tab PO SCH (09:43)
[2019-04-06] MEDS: [UNRECOGNIZED DRUG - OTHER] PO SCH (09:44)
[2019-04-06] MEDS: [UNRECOGNIZED DRUG - OTHER] PO SCH (09:44)
[2019-04-06] MEDS: Melatonin 3 MG Tab PO SCH (21:00)
[2019-04-06] MEDS: ROPINIROLE 0.5 MG PO SCH (21:00)
[2019-04-06] MEDS: GABAPENTIN 300 MG PO SCH (21:00)
[2019-04-06] MEDS: [UNRECOGNIZED DRUG - OTHER] PO SCH (21:00)
[2019-04-07] MEDS: Acetaminophen 325 MG Tab PO SCH ×4 (05:04→20:27)
[2019-04-07] MEDS: Multivitamin, Stress Formula with Zinc Tab PO SCH (09:21)
[2019-04-07] MEDS: Famotidine 20 MG Tab PO SCH (09:21)
[2019-04-07] MEDS: [UNRECOGNIZED DRUG - OTHER] PO SCH (09:22)
[2019-04-07] MEDS: [UNRECOGNIZED DRUG - OTHER] PO SCH (09:22)
[2019-04-07] MEDS: GABAPENTIN 100 MG PO SCH ×2 (09:22→13:29)
[2019-04-07] MEDS: SERTRALINE 100 MG PO SCH (09:22)
[2019-04-07] MEDS: GABAPENTIN 300 MG PO SCH (20:25)
[2019-04-07] MEDS: WARFARIN PO SCH (20:26)
[2019-04-07] MEDS: ROPINIROLE 0.5 MG PO SCH (20:26)
[2019-04-07] MEDS: Melatonin 3 MG Tab PO SCH (20:27)
[2019-04-08] MEDS: Acetaminophen 325 MG Tab PO SCH ×4 (05:39→20:51)
[2019-04-08] MEDS: GABAPENTIN 100 MG PO SCH ×2 (09:25→13:58)
[2019-04-08] MEDS: Famotidine 20 MG Tab PO SCH (09:26)
[2019-04-08] MEDS: SERTRALINE 100 MG PO SCH (09:26)
[2019-04-08] MEDS: Multivitamin, Stress Formula with Zinc Tab PO SCH (09:26)
[2019-04-08] MEDS: [UNRECOGNIZED DRUG - OTHER] PO SCH (09:26)
[2019-04-08] MEDS: [UNRECOGNIZED DRUG - OTHER] PO SCH (09:27)
[2019-04-08] MEDS: GABAPENTIN 300 MG PO SCH (20:50)
[2019-04-08] MEDS: [UNRECOGNIZED DRUG - OTHER] PO SCH (20:51)
[2019-04-08] MEDS: ROPINIROLE 0.5 MG PO SCH (20:51)
[2019-04-08] MEDS: Melatonin 3 MG Tab PO SCH (20:52)
[2019-04-09] MEDS: Acetaminophen 325 MG Tab PO SCH ×4 (05:09→20:56)
[2019-04-09] MEDS: GABAPENTIN 100 MG PO SCH ×2 (08:17→14:10)
[2019-04-09] MEDS: Multivitamin, Stress Formula with Zinc Tab PO SCH (08:17)
[2019-04-09] MEDS: Famotidine 20 MG Tab PO SCH (08:17)
[2019-04-09] MEDS: [UNRECOGNIZED DRUG - OTHER] PO SCH (08:18)
[2019-04-09] MEDS: SERTRALINE 100 MG PO SCH (08:18)
[2019-04-09] MEDS: [UNRECOGNIZED DRUG - OTHER] PO SCH (08:19)
[2019-04-09] MEDS: Melatonin 3 MG Tab PO SCH (20:56)
[2019-04-09] MEDS: [UNRECOGNIZED DRUG - OTHER] PO SCH (20:56)
[2019-04-09] MEDS: ROPINIROLE 0.5 MG PO SCH (20:56)
[2019-04-09] MEDS: GABAPENTIN 300 MG PO SCH (20:57)
[2019-04-10] MEDS: Acetaminophen 325 MG Tab PO SCH ×4 (05:44→19:54)
[2019-04-10] MEDS: Multivitamin, Stress Formula with Zinc Tab PO SCH (08:02)
[2019-04-10] MEDS: Famotidine 20 MG Tab PO SCH (08:02)
[2019-04-10] MEDS: GABAPENTIN 100 MG PO SCH ×2 (08:03→12:36)
[2019-04-10] MEDS: [UNRECOGNIZED DRUG - OTHER] PO SCH (08:03)
[2019-04-10] MEDS: [UNRECOGNIZED DRUG - OTHER] PO SCH (08:03)
[2019-04-10] MEDS: SERTRALINE 100 MG PO SCH (08:04)
[2019-04-10] MEDS: Melatonin 3 MG Tab PO SCH (19:54)
[2019-04-10] MEDS: GABAPENTIN 300 MG PO SCH (19:54)
[2019-04-10] MEDS: WARFARIN PO SCH (19:55)
[2019-04-10] MEDS: ROPINIROLE 0.5 MG PO SCH (19:55)
[2019-04-11] MEDS: Acetaminophen 325 MG Tab PO SCH ×4 (06:03→20:50)
[2019-04-11] MEDS: GABAPENTIN 100 MG PO SCH ×2 (08:52→13:00)
[2019-04-11] MEDS: Multivitamin, Stress Formula with Zinc Tab PO SCH (08:53)
[2019-04-11] MEDS: Famotidine 20 MG Tab PO SCH (08:53)
[2019-04-11] MEDS: [UNRECOGNIZED DRUG - OTHER] PO SCH (08:53)
[2019-04-11] MEDS: [UNRECOGNIZED DRUG - OTHER] PO SCH (08:54)
[2019-04-11] MEDS: SERTRALINE 100 MG PO SCH (08:57)
[2019-04-11] MEDS: [UNRECOGNIZED DRUG - OTHER] PO SCH (20:50)
[2019-04-11] MEDS: Melatonin 3 MG Tab PO SCH (20:50)
[2019-04-11] MEDS: GABAPENTIN 300 MG PO SCH (20:50)
[2019-04-11] MEDS: ROPINIROLE 0.5 MG PO SCH (20:50)
[2019-04-12] MEDS: Acetaminophen 325 MG Tab PO SCH ×4 (01:13→20:54)
[2019-04-12] MEDS: Multivitamin, Stress Formula with Zinc Tab PO SCH (08:51)
[2019-04-12] MEDS: GABAPENTIN 100 MG PO SCH ×2 (08:51→12:20)
[2019-04-12] MEDS: [UNRECOGNIZED DRUG - OTHER] PO SCH (08:52)
[2019-04-12] MEDS: [UNRECOGNIZED DRUG - OTHER] PO SCH (08:52)
[2019-04-12] MEDS: SERTRALINE 100 MG PO SCH (08:52)
[2019-04-12] MEDS: Famotidine 20 MG Tab PO SCH (08:52)
[2019-04-12] MEDS: [UNRECOGNIZED DRUG - OTHER] PO SCH (20:54)
[2019-04-12] MEDS: Melatonin 3 MG Tab PO SCH (20:54)
[2019-04-12] MEDS: GABAPENTIN 300 MG PO SCH (20:54)
[2019-04-12] MEDS: ROPINIROLE 0.5 MG PO SCH (20:54)
[2019-04-13] MEDS: Acetaminophen 325 MG Tab PO SCH ×4 (05:53→21:26)
[2019-04-13] MEDS: GABAPENTIN 100 MG PO SCH ×2 (08:58→12:28)
[2019-04-13] MEDS: Multivitamin, Stress Formula with Zinc Tab PO SCH (08:58)
[2019-04-13] MEDS: SERTRALINE 100 MG PO SCH (08:59)
[2019-04-13] MEDS: [UNRECOGNIZED DRUG - OTHER] PO SCH (08:59)
[2019-04-13] MEDS: [UNRECOGNIZED DRUG - OTHER] PO SCH (08:59)
[2019-04-13] MEDS: Famotidine 20 MG Tab PO SCH (08:59)
[2019-04-13] MEDS: ROPINIROLE 0.5 MG PO SCH (21:27)
[2019-04-13] MEDS: GABAPENTIN 300 MG PO SCH (21:27)
[2019-04-13] MEDS: [UNRECOGNIZED DRUG - OTHER] PO SCH (21:27)
[2019-04-13] MEDS: Melatonin 3 MG Tab PO SCH (21:27)
[2019-04-14] MEDS: Acetaminophen 325 MG Tab PO SCH ×4 (02:04→20:56)
[2019-04-14] MEDS: Multivitamin, Stress Formula with Zinc Tab PO SCH (09:43)
[2019-04-14] MEDS: GABAPENTIN 100 MG PO SCH ×2 (09:43→12:12)
[2019-04-14] MEDS: [UNRECOGNIZED DRUG - OTHER] PO SCH (09:44)
[2019-04-14] MEDS: Famotidine 20 MG Tab PO SCH (09:44)
[2019-04-14] MEDS: SERTRALINE 100 MG PO SCH (09:45)
[2019-04-14] MEDS: [UNRECOGNIZED DRUG - OTHER] PO SCH (09:45)
[2019-04-14] MEDS: GABAPENTIN 300 MG PO SCH (20:54)
[2019-04-14] MEDS: ROPINIROLE 0.5 MG PO SCH (20:55)
[2019-04-14] MEDS: WARFARIN PO SCH (20:55)
[2019-04-14] MEDS: Melatonin 3 MG Tab PO SCH (20:55)
[2019-04-15] MEDS: Acetaminophen 325 MG Tab PO SCH ×5 (03:23→20:08)
[2019-04-15] MEDS: GABAPENTIN 100 MG PO SCH ×2 (08:16→14:21)
[2019-04-15] MEDS: SERTRALINE 100 MG PO SCH (08:17)
[2019-04-15] MEDS: [UNRECOGNIZED DRUG - OTHER] PO SCH (08:17)
[2019-04-15] MEDS: [UNRECOGNIZED DRUG - OTHER] PO SCH (08:17)
[2019-04-15] MEDS: Multivitamin, Stress Formula with Zinc Tab PO SCH (08:18)
[2019-04-15] MEDS: Famotidine 20 MG Tab PO SCH (08:18)
[2019-04-15] MEDS: GABAPENTIN 300 MG PO SCH (20:06)
[2019-04-15] MEDS: [UNRECOGNIZED DRUG - OTHER] PO SCH (20:07)
[2019-04-15] MEDS: Melatonin 3 MG Tab PO SCH (20:08)
[2019-04-15] MEDS: ROPINIROLE 0.5 MG PO SCH (20:08)
[2019-04-16] MEDS: Acetaminophen 325 MG Tab PO SCH ×4 (06:05→21:00)
[2019-04-16] MEDS: [UNRECOGNIZED DRUG - OTHER] PO SCH (07:43)
[2019-04-16] MEDS: SERTRALINE 100 MG PO SCH (07:43)
[2019-04-16] MEDS: GABAPENTIN 100 MG PO SCH ×2 (07:44→12:24)
[2019-04-16] MEDS: [UNRECOGNIZED DRUG - OTHER] PO SCH (07:44)
[2019-04-16] MEDS: Famotidine 20 MG Tab PO SCH (07:45)
[2019-04-16] MEDS: Multivitamin, Stress Formula with Zinc Tab PO SCH (07:45)
[2019-04-16] MEDS: ROPINIROLE 0.5 MG PO SCH (21:00)
[2019-04-16] MEDS: GABAPENTIN 300 MG PO SCH (21:00)
[2019-04-16] MEDS: Melatonin 3 MG Tab PO SCH (21:00)
[2019-04-16] MEDS: [UNRECOGNIZED DRUG - OTHER] PO SCH (21:00)
[2019-04-17] MEDS: Acetaminophen 325 MG Tab PO SCH ×4 (06:00→19:40)
[2019-04-17] MEDS: Famotidine 20 MG Tab PO SCH (08:28)
[2019-04-17] MEDS: GABAPENTIN 100 MG PO SCH ×2 (08:28→13:11)
[2019-04-17] MEDS: Multivitamin, Stress Formula with Zinc Tab PO SCH (08:28)
[2019-04-17] MEDS: SERTRALINE 100 MG PO SCH (08:28)
[2019-04-17] MEDS: [UNRECOGNIZED DRUG - OTHER] PO SCH (08:28)
[2019-04-17] MEDS: [UNRECOGNIZED DRUG - OTHER] PO SCH (08:29)
[2019-04-17] MEDS: GABAPENTIN 300 MG PO SCH (19:38)
[2019-04-17] MEDS: ROPINIROLE 0.5 MG PO SCH (19:39)
[2019-04-17] MEDS: WARFARIN PO SCH (19:39)
[2019-04-17] MEDS: Melatonin 3 MG Tab PO SCH (19:40)
[2019-04-18] MEDS: Acetaminophen 325 MG Tab PO SCH ×4 (06:05→19:59)
[2019-04-18] MEDS: [UNRECOGNIZED DRUG - OTHER] PO SCH (08:12)
[2019-04-18] MEDS: GABAPENTIN 100 MG PO SCH ×2 (08:12→12:17)
[2019-04-18] MEDS: SERTRALINE 100 MG PO SCH (08:12)
[2019-04-18] MEDS: Multivitamin, Stress Formula with Zinc Tab PO SCH (08:13)
[2019-04-18] MEDS: [UNRECOGNIZED DRUG - OTHER] PO SCH (08:13)
[2019-04-18] MEDS: Famotidine 20 MG Tab PO SCH (08:16)
[2019-04-18] MEDS: Melatonin 3 MG Tab PO SCH (19:59)
[2019-04-18] MEDS: GABAPENTIN 300 MG PO SCH (19:59)
[2019-04-18] MEDS: ROPINIROLE 0.5 MG PO SCH (19:59)
[2019-04-18] MEDS: [UNRECOGNIZED DRUG - OTHER] PO SCH (20:00)
[2019-04-19] MEDS: Acetaminophen 325 MG Tab PO SCH ×4 (04:32→19:16)
[2019-04-19] MEDS: GABAPENTIN 100 MG PO SCH ×2 (08:04→13:50)
[2019-04-19] MEDS: [UNRECOGNIZED DRUG - OTHER] PO SCH (08:04)
[2019-04-19] MEDS: [UNRECOGNIZED DRUG - OTHER] PO SCH (08:04)
[2019-04-19] MEDS: SERTRALINE 100 MG PO SCH (08:04)
[2019-04-19] MEDS: Famotidine 20 MG Tab PO SCH (08:04)
[2019-04-19] MEDS: Multivitamin, Stress Formula with Zinc Tab PO SCH (08:04)
[2019-04-19] MEDS: Melatonin 3 MG Tab PO SCH (19:16)
[2019-04-19] MEDS: [UNRECOGNIZED DRUG - OTHER] PO SCH (19:17)
[2019-04-19] MEDS: ROPINIROLE 0.5 MG PO SCH (19:17)
[2019-04-19] MEDS: GABAPENTIN 300 MG PO SCH (19:17)
[2019-04-20] MEDS: Acetaminophen 325 MG Tab PO SCH ×4 (03:00→20:04)
[2019-04-20] MEDS: [UNRECOGNIZED DRUG - OTHER] PO SCH (07:45)
[2019-04-20] MEDS: [UNRECOGNIZED DRUG - OTHER] PO SCH (07:46)
[2019-04-20] MEDS: SERTRALINE 100 MG PO SCH (07:46)
[2019-04-20] MEDS: Multivitamin, Stress Formula with Zinc Tab PO SCH (07:46)
[2019-04-20] MEDS: Famotidine 20 MG Tab PO SCH (07:46)
[2019-04-20] MEDS: GABAPENTIN 100 MG PO SCH ×2 (07:46→13:08)
[2019-04-20] MEDS: GABAPENTIN 300 MG PO SCH (20:03)
[2019-04-20] MEDS: Melatonin 3 MG Tab PO SCH (20:04)
[2019-04-20] MEDS: ROPINIROLE 0.5 MG PO SCH (20:04)
[2019-04-20] MEDS: [UNRECOGNIZED DRUG - OTHER] PO SCH (20:04)
[2019-04-21] MEDS: Acetaminophen 325 MG Tab PO SCH ×4 (05:49→20:05)
[2019-04-21] MEDS: GABAPENTIN 100 MG PO SCH ×2 (07:53→12:04)
[2019-04-21] MEDS: SERTRALINE 100 MG PO SCH (07:54)
[2019-04-21] MEDS: Multivitamin, Stress Formula with Zinc Tab PO SCH (07:54)
[2019-04-21] MEDS: [UNRECOGNIZED DRUG - OTHER] PO SCH (07:54)
[2019-04-21] MEDS: [UNRECOGNIZED DRUG - OTHER] PO SCH (07:54)
[2019-04-21] MEDS: Famotidine 20 MG Tab PO SCH (07:55)
[2019-04-21] MEDS: WARFARIN PO SCH (20:05)
[2019-04-21] MEDS: GABAPENTIN 300 MG PO SCH (20:05)
[2019-04-21] MEDS: Melatonin 3 MG Tab PO SCH (20:05)
[2019-04-21] MEDS: ROPINIROLE 0.5 MG PO SCH (20:06)
[2019-04-22] MEDS: Acetaminophen 325 MG Tab PO SCH ×4 (06:28→20:05)
[2019-04-22] MEDS: SERTRALINE 100 MG PO SCH (07:53)
[2019-04-22] MEDS: [UNRECOGNIZED DRUG - OTHER] PO SCH (07:53)
[2019-04-22] MEDS: [UNRECOGNIZED DRUG - OTHER] PO SCH (07:53)
[2019-04-22] MEDS: GABAPENTIN 100 MG PO SCH ×2 (07:53→13:48)
[2019-04-22] MEDS: Multivitamin, Stress Formula with Zinc Tab PO SCH (07:54)
[2019-04-22] MEDS: Famotidine 20 MG Tab PO SCH (07:54)
[2019-04-22] MEDS: GABAPENTIN 300 MG PO SCH (20:04)
[2019-04-22] MEDS: ROPINIROLE 0.5 MG PO SCH (20:05)
[2019-04-22] MEDS: [UNRECOGNIZED DRUG - OTHER] PO SCH (20:05)
[2019-04-22] MEDS: Melatonin 3 MG Tab PO SCH (20:05)
[2019-04-23] MEDS: Acetaminophen 325 MG Tab PO SCH ×4 (07:40→20:50)
[2019-04-23] MEDS: [UNRECOGNIZED DRUG - OTHER] PO SCH (07:41)
[2019-04-23] MEDS: GABAPENTIN 100 MG PO SCH ×2 (07:41→15:21)
[2019-04-23] MEDS: SERTRALINE 100 MG PO SCH (07:41)
[2019-04-23] MEDS: Famotidine 20 MG Tab PO SCH (07:42)
[2019-04-23] MEDS: Multivitamin, Stress Formula with Zinc Tab PO SCH (07:42)
[2019-04-23] MEDS: [UNRECOGNIZED DRUG - OTHER] PO SCH (07:42)
[2019-04-23] MEDS: Melatonin 3 MG Tab PO SCH (20:50)
[2019-04-23] MEDS: [UNRECOGNIZED DRUG - OTHER] PO SCH (20:53)
[2019-04-23] MEDS: ROPINIROLE 0.5 MG PO SCH (20:53)
[2019-04-23] MEDS: GABAPENTIN 300 MG PO SCH (20:54)
[2019-04-24] MEDS: Acetaminophen 325 MG Tab PO SCH ×4 (05:40→19:59)
[2019-04-24] MEDS: Multivitamin, Stress Formula with Zinc Tab PO SCH (08:14)
[2019-04-24] MEDS: [UNRECOGNIZED DRUG - OTHER] PO SCH (08:14)
[2019-04-24] MEDS: GABAPENTIN 100 MG PO SCH ×2 (08:14→13:37)
[2019-04-24] MEDS: [UNRECOGNIZED DRUG - OTHER] PO SCH (08:14)
[2019-04-24] MEDS: Famotidine 20 MG Tab PO SCH (08:14)
[2019-04-24] MEDS: SERTRALINE 100 MG PO SCH (08:14)
[2019-04-24] MEDS: ROPINIROLE 0.5 MG PO SCH (19:58)
[2019-04-24] MEDS: WARFARIN PO SCH (19:58)
[2019-04-24] MEDS: GABAPENTIN 300 MG PO SCH (19:58)
[2019-04-24] MEDS: Melatonin 3 MG Tab PO SCH (19:59)
[2019-04-25] MEDS: Acetaminophen 325 MG Tab PO SCH ×4 (06:31→20:50)
[2019-04-25] MEDS: GABAPENTIN 100 MG PO SCH ×2 (08:42→12:36)
[2019-04-25] MEDS: Multivitamin, Stress Formula with Zinc Tab PO SCH (08:42)
[2019-04-25] MEDS: Famotidine 20 MG Tab PO SCH (08:42)
[2019-04-25] MEDS: [UNRECOGNIZED DRUG - OTHER] PO SCH (08:42)
[2019-04-25] MEDS: [UNRECOGNIZED DRUG - OTHER] PO SCH (08:42)
[2019-04-25] MEDS: SERTRALINE 100 MG PO SCH (08:43)
[2019-04-25] MEDS: Melatonin 3 MG Tab PO SCH (20:51)
[2019-04-25] MEDS: [UNRECOGNIZED DRUG - OTHER] PO SCH (20:53)
[2019-04-25] MEDS: ROPINIROLE 0.5 MG PO SCH (20:54)
[2019-04-25] MEDS: GABAPENTIN 300 MG PO SCH (20:57)
[2019-04-26] MEDS: Acetaminophen 325 MG Tab PO SCH ×4 (04:08→20:11)
[2019-04-26] MEDS: GABAPENTIN 100 MG PO SCH ×2 (08:05→12:29)
[2019-04-26] MEDS: Multivitamin, Stress Formula with Zinc Tab PO SCH (08:06)
[2019-04-26] MEDS: SERTRALINE 100 MG PO SCH (08:06)
[2019-04-26] MEDS: Famotidine 20 MG Tab PO SCH (08:07)
[2019-04-26] MEDS: [UNRECOGNIZED DRUG - OTHER] PO SCH (08:07)
[2019-04-26] MEDS: [UNRECOGNIZED DRUG - OTHER] PO SCH (08:07)
[2019-04-26] MEDS: [UNRECOGNIZED DRUG - OTHER] PO SCH (20:11)
[2019-04-26] MEDS: ROPINIROLE 0.5 MG PO SCH (20:11)
[2019-04-26] MEDS: Melatonin 3 MG Tab PO SCH (20:11)
[2019-04-26] MEDS: GABAPENTIN 300 MG PO SCH (20:12)
[2019-04-27] MEDS: Acetaminophen 325 MG Tab PO SCH ×4 (05:28→20:16)
[2019-04-27] MEDS: GABAPENTIN 100 MG PO SCH ×2 (08:13→12:15)
[2019-04-27] MEDS: SERTRALINE 100 MG PO SCH (08:14)
[2019-04-27] MEDS: Famotidine 20 MG Tab PO SCH (08:14)
[2019-04-27] MEDS: [UNRECOGNIZED DRUG - OTHER] PO SCH (08:14)
[2019-04-27] MEDS: [UNRECOGNIZED DRUG - OTHER] PO SCH (08:14)
[2019-04-27] MEDS: Multivitamin, Stress Formula with Zinc Tab PO SCH (08:14)
[2019-04-27] MEDS: [UNRECOGNIZED DRUG - OTHER] PO SCH (20:16)
[2019-04-27] MEDS: Melatonin 3 MG Tab PO SCH (20:16)
[2019-04-27] MEDS: ROPINIROLE 0.5 MG PO SCH (20:16)
[2019-04-27] MEDS: GABAPENTIN 300 MG PO SCH (20:16)
[2019-04-28] MEDS: Acetaminophen 325 MG Tab PO SCH ×4 (06:05→19:27)
[2019-04-28] MEDS: Famotidine 20 MG Tab PO SCH (08:25)
[2019-04-28] MEDS: GABAPENTIN 100 MG PO SCH ×2 (08:25→14:36)
[2019-04-28] MEDS: Multivitamin, Stress Formula with Zinc Tab PO SCH (08:25)
[2019-04-28] MEDS: [UNRECOGNIZED DRUG - OTHER] PO SCH (08:26)
[2019-04-28] MEDS: [UNRECOGNIZED DRUG - OTHER] PO SCH (08:26)
[2019-04-28] MEDS: SERTRALINE 100 MG PO SCH (08:26)
[2019-04-28] MEDS: GABAPENTIN 300 MG PO SCH (19:26)
[2019-04-28] MEDS: Melatonin 3 MG Tab PO SCH (19:27)
[2019-04-28] MEDS: ROPINIROLE 0.5 MG PO SCH (19:28)
[2019-04-28] MEDS: WARFARIN PO SCH (19:28)
[2019-04-29] MEDS: Acetaminophen 325 MG Tab PO SCH ×4 (03:56→19:44)
[2019-04-29] MEDS: [UNRECOGNIZED DRUG - OTHER] PO SCH (08:54)
[2019-04-29] MEDS: SERTRALINE 100 MG PO SCH (08:54)
[2019-04-29] MEDS: Famotidine 20 MG Tab PO SCH (08:54)
[2019-04-29] MEDS: [UNRECOGNIZED DRUG - OTHER] PO SCH (08:54)
[2019-04-29] MEDS: Multivitamin, Stress Formula with Zinc Tab PO SCH (08:54)
[2019-04-29] MEDS: GABAPENTIN 100 MG PO SCH ×2 (08:54→12:24)
[2019-04-29] MEDS: GABAPENTIN 300 MG PO SCH (19:42)
[2019-04-29] MEDS: ROPINIROLE 0.5 MG PO SCH (19:43)
[2019-04-29] MEDS: Melatonin 3 MG Tab PO SCH (19:43)
[2019-04-29] MEDS: [UNRECOGNIZED DRUG - OTHER] PO SCH (19:43)
[2019-04-30] MEDS: Acetaminophen 325 MG Tab PO SCH ×4 (03:00→20:04)
[2019-04-30] MEDS: GABAPENTIN 100 MG PO SCH ×2 (08:27→14:54)
[2019-04-30] MEDS: [UNRECOGNIZED DRUG - OTHER] PO SCH (08:27)
[2019-04-30] MEDS: SERTRALINE 100 MG PO SCH (08:27)
[2019-04-30] MEDS: [UNRECOGNIZED DRUG - OTHER] PO SCH (08:27)
[2019-04-30] MEDS: Multivitamin, Stress Formula with Zinc Tab PO SCH (08:27)
[2019-04-30] MEDS: Famotidine 20 MG Tab PO SCH (08:27)
[2019-04-30] MEDS: GABAPENTIN 300 MG PO SCH (20:04)
[2019-04-30] MEDS: Melatonin 3 MG Tab PO SCH (20:04)
[2019-04-30] MEDS: [UNRECOGNIZED DRUG - OTHER] PO SCH (20:05)
[2019-04-30] MEDS: ROPINIROLE 0.5 MG PO SCH (20:05)
[2019-05-01] MEDS: Acetaminophen 325 MG Tab PO SCH ×4 (03:44→21:00)
[2019-05-01] MEDS: [UNRECOGNIZED DRUG - OTHER] PO SCH (09:53)
[2019-05-01] MEDS: GABAPENTIN 100 MG PO SCH ×2 (09:53→14:44)
[2019-05-01] MEDS: SERTRALINE 100 MG PO SCH (09:55)
[2019-05-01] MEDS: [UNRECOGNIZED DRUG - OTHER] PO SCH (09:57)
[2019-05-01] MEDS: Multivitamin, Stress Formula with Zinc Tab PO SCH (10:01)
[2019-05-01] MEDS: Famotidine 20 MG Tab PO SCH (10:02)
[2019-05-01] MEDS: GABAPENTIN 300 MG PO SCH (21:00)
[2019-05-01] MEDS: Melatonin 3 MG Tab PO SCH (21:00)
[2019-05-01] MEDS: ROPINIROLE 0.5 MG PO SCH (21:00)
[2019-05-01] MEDS: WARFARIN PO SCH (21:00)
[2019-05-02] MEDS: Acetaminophen 325 MG Tab PO SCH ×4 (06:01→19:44)
[2019-05-02] MEDS: GABAPENTIN 100 MG PO SCH ×2 (07:44→12:00)
[2019-05-02] MEDS: [UNRECOGNIZED DRUG - OTHER] PO SCH (07:45)
[2019-05-02] MEDS: Multivitamin, Stress Formula with Zinc Tab PO SCH (07:45)
[2019-05-02] MEDS: Famotidine 20 MG Tab PO SCH (07:45)
[2019-05-02] MEDS: [UNRECOGNIZED DRUG - OTHER] PO SCH (07:46)
[2019-05-02] MEDS: SERTRALINE 100 MG PO SCH (07:46)
[2019-05-02 14:15] LABS: ANION GAP 13.3 mmol/L (10-20)
--- NOTE | 2019-05-02 14:15 | CR ---
[id number] RAD/RAD Chest PA And Lateral EXAM: FRONTAL AND LATERAL CHEST INDICATION: SHORTNESS OF BREATH. COMPARISON: September 07, 2017. DISCUSSION: Rightward deviation of the trachea suspicious for a mass in the left aspect of the upper mediastinum. This is somewhat more prevalent than on the prior study, and if not previously performed, a chest CT is again suggested for further characterization. Stable mild cardiomegaly without evidence of congestive heart failure. Hyperinflation is consistent with chronic obstructive pulmonary disease. 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 Chronic obstructive pulmonary disease. Stable cardiomegaly without evidence of congestive heart failure. Humble Mayes MD 05/02/19 0472 Thank you for allowing us to participate in the care of your patient.
--- NOTE | 2019-05-02 18:29 | PN ---
Progress Note for ANABELLEMAURA TANG Date: 05/02/2019 Room #: VM.219 SUBJECTIVE: This is an 83-year-old on long-term swing bed. She tells me over the past few days to really weeks, she has had increased shortness of breath. She has not had significantly increased cough, but has had some trouble swallowing. She has had chest pain at times, but usually gets better when she sits and relaxes. The breathing trouble is whenever she tries to do anything. She has been using oxygen more during the day and normally uses it only at night. She does have a previous history of heart failure, diastolic. She has had previous heart disease. She has had also reported COPD per her previous medical record. She has not had any weight gain or increased swelling. She is on Coumadin and her INR was therapeutic today. OBJECTIVE: Vital Signs: Her weight is 85.8 kg, temperature 98.2, pulse 72, blood pressure 128/68, respiratory rate 16, O2 of 96% on room air. General: She is in no acute distress. Heart: Regular rate and rhythm. S1, S2 without murmur. Lungs: Lung sounds are clear to auscultation bilaterally without crackles or wheezes in the upper bases, but decreased bilaterally, but no wheezing noted in the lower bases. Abdomen: Mildly distended. She has some mid epigastric tenderness. She reports this is due to stress. She has been on Pepcid. Extremities: Warm and dry, just trace edema. Mental Status: She is alert. She is orientated x3. LABORATORY DATA: Lab work requested today due to the shortness of breath did show her to have a white count of 11.1, which is similar to last lab check nearly a year ago, hemoglobin 10.7 down from 12, platelets 282. INR is 2.2. Sodium 147, potassium 4.3, chloride 106, bicarb 32, BUN 19, creatinine 1.1, glucose 140. ProBNP is 810. ASSESSMENT: 1. Dyspnea. The patient is really not interested in significant workup this weekend. She has some family coming. Did discuss with her I did a chest x- ray and she had a mediastinal mass. It actually appears to affect her airway. She is considering doing a CT scan, but would like to wait till next week. I will discuss with her primary care, Anuel Garcia. She also has an interesting history of a large thyroid nodule like from 2006 that was supposed to be removed and it never was. 2. History of chronic chronic heart failure EF 60 % in 2013, mildly elevated proBNP. She is on Lasix 20 mg daily. This seems stable. 3. Coronary artery disease with angina. We will continue to monitor. She does have some Nitro p.r.n. Could consider adding some Imdur. However, blood pressures are under very well control. 4. Reported history of chronic obstructive pulmonary disease. Could consider trying some nebulizers if her CT scan does not show a cause for shortness of breath. 5. Obesity. 6. Anticoagulated with Coumadin for hx of DVT's She appears to be in a sinus rhythm currently and she is therapeutic. 7. Mild anemia with epigastric pain. I will add a PPI and repeat labs on Sunday. Check stools for hemoccult also. PLAN: At this point, the patient will continue swing bed cares. She has deferred doing a CT. She has some shortness of breath, which has been coming on over the past days to weeks. I do not appear she is in any immediate danger. We will continue oxygen as needed. Follow up with her primary care next week. MKA: 05/02/2019 17:34:10 MODL: 05/02/2019 18:22:23 /[id number] RIA
[2019-05-02] MEDS: GABAPENTIN 300 MG PO SCH (19:43)
[2019-05-02] MEDS: ROPINIROLE 0.5 MG PO SCH (19:43)
[2019-05-02] MEDS: Melatonin 3 MG Tab PO SCH (19:44)
[2019-05-02] MEDS: [UNRECOGNIZED DRUG - OTHER] PO SCH (19:44)
[2019-05-03] MEDS: Acetaminophen 325 MG Tab PO SCH ×4 (04:57→21:00)
[2019-05-03] MEDS: Multivitamin, Stress Formula with Zinc Tab PO SCH (07:19)
[2019-05-03] MEDS: [UNRECOGNIZED DRUG - OTHER] PO SCH (07:20)
[2019-05-03] MEDS: SERTRALINE 100 MG PO SCH (07:20)
[2019-05-03] MEDS: Famotidine 20 MG Tab PO SCH (07:20)
[2019-05-03] MEDS: Omeprazole 20 MG Cap.CR PO SCH (07:20)
[2019-05-03] MEDS: [UNRECOGNIZED DRUG - OTHER] PO SCH (07:21)
[2019-05-03] MEDS: GABAPENTIN 100 MG PO SCH ×2 (07:21→13:00)
[2019-05-03] MEDS: GABAPENTIN 300 MG PO SCH (21:00)
[2019-05-03] MEDS: ROPINIROLE 0.5 MG PO SCH (21:00)
[2019-05-03] MEDS: [UNRECOGNIZED DRUG - OTHER] PO SCH (21:00)
[2019-05-03] MEDS: Melatonin 3 MG Tab PO SCH (21:00)
[2019-05-04] MEDS: Acetaminophen 325 MG Tab PO SCH ×4 (03:01→19:28)
[2019-05-04] MEDS: GABAPENTIN 100 MG PO SCH ×2 (08:31→12:31)
[2019-05-04] MEDS: Multivitamin, Stress Formula with Zinc Tab PO SCH (08:32)
[2019-05-04] MEDS: Omeprazole 20 MG Cap.CR PO SCH (08:32)
[2019-05-04] MEDS: [UNRECOGNIZED DRUG - OTHER] PO SCH (08:33)
[2019-05-04] MEDS: Famotidine 20 MG Tab PO SCH (08:33)
[2019-05-04] MEDS: SERTRALINE 100 MG PO SCH (08:34)
[2019-05-04] MEDS: [UNRECOGNIZED DRUG - OTHER] PO SCH (08:34)
[2019-05-04] MEDS: GABAPENTIN 300 MG PO SCH (19:27)
[2019-05-04] MEDS: ROPINIROLE 0.5 MG PO SCH (19:28)
[2019-05-04] MEDS: Melatonin 3 MG Tab PO SCH (19:28)
[2019-05-04] MEDS: [UNRECOGNIZED DRUG - OTHER] PO SCH (19:28)
[2019-05-05] MEDS: Acetaminophen 325 MG Tab PO SCH ×4 (04:23→19:37)
[2019-05-05] MEDS: GABAPENTIN 100 MG PO SCH ×2 (07:42→13:45)
[2019-05-05] MEDS: Omeprazole 20 MG Cap.CR PO SCH (07:42)
[2019-05-05] MEDS: SERTRALINE 100 MG PO SCH (07:43)
[2019-05-05] MEDS: Famotidine 20 MG Tab PO SCH (07:43)
[2019-05-05] MEDS: Multivitamin, Stress Formula with Zinc Tab PO SCH (07:43)
[2019-05-05] MEDS: [UNRECOGNIZED DRUG - OTHER] PO SCH (07:44)
[2019-05-05] MEDS: [UNRECOGNIZED DRUG - OTHER] PO SCH (07:44)
[2019-05-05] MEDS: GABAPENTIN 300 MG PO SCH (19:35)
[2019-05-05] MEDS: WARFARIN PO SCH (19:37)
[2019-05-05] MEDS: ROPINIROLE 0.5 MG PO SCH (19:37)
[2019-05-05] MEDS: Melatonin 3 MG Tab PO SCH (19:37)
[2019-05-06] MEDS: Acetaminophen 325 MG Tab PO SCH ×4 (04:23→20:58)
[2019-05-06] MEDS: Famotidine 20 MG Tab PO SCH (10:02)
[2019-05-06] MEDS: GABAPENTIN 100 MG PO SCH ×2 (10:02→12:36)
[2019-05-06] MEDS: Multivitamin, Stress Formula with Zinc Tab PO SCH (10:03)
[2019-05-06] MEDS: [UNRECOGNIZED DRUG - OTHER] PO SCH (10:03)
[2019-05-06] MEDS: [UNRECOGNIZED DRUG - OTHER] PO SCH (10:03)
[2019-05-06] MEDS: Omeprazole 20 MG Cap.CR PO SCH (10:03)
[2019-05-06] MEDS: SERTRALINE 100 MG PO SCH (10:04)
[2019-05-06] MEDS: Melatonin 3 MG Tab PO SCH (20:57)
[2019-05-06] MEDS: ROPINIROLE 0.5 MG PO SCH (20:57)
[2019-05-06] MEDS: GABAPENTIN 300 MG PO SCH (20:57)
[2019-05-06] MEDS: [UNRECOGNIZED DRUG - OTHER] PO SCH (20:58)
[2019-05-07] MEDS: Acetaminophen 325 MG Tab PO SCH ×4 (05:05→19:29)
[2019-05-07] MEDS: [UNRECOGNIZED DRUG - OTHER] PO SCH (07:52)
[2019-05-07] MEDS: GABAPENTIN 100 MG PO SCH ×2 (07:52→12:43)
[2019-05-07] MEDS: [UNRECOGNIZED DRUG - OTHER] PO SCH (07:52)
[2019-05-07] MEDS: Omeprazole 20 MG Cap.CR PO SCH (07:53)
[2019-05-07] MEDS: Multivitamin, Stress Formula with Zinc Tab PO SCH (07:53)
[2019-05-07] MEDS: SERTRALINE 100 MG PO SCH (07:53)
[2019-05-07] MEDS: Famotidine 20 MG Tab PO SCH (07:53)
[2019-05-07] MEDS: GABAPENTIN 300 MG PO SCH (19:27)
[2019-05-07] MEDS: ROPINIROLE 0.5 MG PO SCH (19:27)
[2019-05-07] MEDS: [UNRECOGNIZED DRUG - OTHER] PO SCH (19:28)
[2019-05-07] MEDS: Melatonin 3 MG Tab PO SCH (19:28)
[2019-05-08] MEDS: Acetaminophen 325 MG Tab PO SCH ×4 (05:58→19:42)
[2019-05-08] MEDS: Omeprazole 20 MG Cap.CR PO SCH (07:51)
[2019-05-08] MEDS: [UNRECOGNIZED DRUG - OTHER] PO SCH (07:52)
[2019-05-08] MEDS: Multivitamin, Stress Formula with Zinc Tab PO SCH (07:52)
[2019-05-08] MEDS: Famotidine 20 MG Tab PO SCH (07:52)
[2019-05-08] MEDS: [UNRECOGNIZED DRUG - OTHER] PO SCH (07:53)
[2019-05-08] MEDS: SERTRALINE 100 MG PO SCH (07:53)
[2019-05-08] MEDS: GABAPENTIN 100 MG PO SCH ×2 (07:54→12:30)
--- NOTE | 2019-05-08 16:59 | CT ---
[id number] CT/CT Chest W IV EXAM: CT Chest W IV CLINICAL DATA: MEDIASTINAL MASS. COMPARISON: Radiograph examinations from 2018 and May 02, 2019. FINDINGS: LUNGS: 18 x 19 x 13 mm area of groundglass nodularity in the right upper lobe (series 2 image 18 and series 3 image 51). No suspicious parenchymal nodularity. HEART AND GREAT VESSELS: Coronary artery and thoracic aorta atherosclerosis. Mild cardiomegaly. No pericardial effusion. Thoracic aorta is normal in caliber. No dissection. MEDIASTINUM AND LYMPHATICS: Enlarged left thyroid lobe secondary to a complex mass measuring 43 x 45 x 48 mm. Superior margin of the mass extends beyond the field of view of this examination. Mass is chronic and results in rightward deviation of the trachea, correlating with appearance on radiograph examinations dating to 2018. No lymphadenopathy. UPPER ABDOMINAL ORGANS: Gallbladder has been resected. Simple parenchymal cyst in the left kidney superior pole. A second left renal lesion extends beyond the field of view of this examination and is incompletely evaluated. Simple appearing 7 mm cystic mass in the tail the pancreas. BONES: Scattered changes of spondylosis in the spine. No fracture or osseous lesion. Soft tissues: 15 x 11 x 12 mm nodular area of soft tissue density in the right breast (series 2 image 45 and series 3 image 20). IMPRESSION: Mediastinal mass is consistent with a complex left thyroid mass that exerts mass effect and rightward deviation of the trachea, accounting for appearance on prior chest radiograph examinations. 18 mm nodular area of groundglass opacification in the right upper lobe. Findings are nonspecific and likely infectious or inflammatory etiology. If there are appropriate clinical risk factors, follow-up noncontrast low dose chest CT in 12 months is recommended. 12 mm masslike area of soft tissue density in the right breast. Correlation with mammography is recommended. Jose D Haynes MD 05/08/19 0800 Thank you for allowing us to participate in the care of your patient.
[2019-05-08] MEDS: GABAPENTIN 300 MG PO SCH (19:35)
[2019-05-08] MEDS: WARFARIN PO SCH (19:36)
[2019-05-08] MEDS: Melatonin 3 MG Tab PO SCH (19:43)
[2019-05-08] MEDS: ROPINIROLE 0.5 MG PO SCH (19:44)
[2019-05-09] MEDS: Acetaminophen 325 MG Tab PO SCH ×4 (06:18→19:40)
[2019-05-09] MEDS: GABAPENTIN 100 MG PO SCH ×2 (09:55→12:59)
[2019-05-09] MEDS: Omeprazole 20 MG Cap.CR PO SCH (09:56)
[2019-05-09] MEDS: Famotidine 20 MG Tab PO SCH (09:57)
[2019-05-09] MEDS: Multivitamin, Stress Formula with Zinc Tab PO SCH (09:57)
[2019-05-09] MEDS: [UNRECOGNIZED DRUG - OTHER] PO SCH (09:57)
[2019-05-09] MEDS: [UNRECOGNIZED DRUG - OTHER] PO SCH (09:58)
[2019-05-09] MEDS: SERTRALINE 100 MG PO SCH (09:58)
[2019-05-09] MEDS: GABAPENTIN 300 MG PO SCH (19:39)
[2019-05-09] MEDS: Melatonin 3 MG Tab PO SCH (19:40)
[2019-05-09] MEDS: ROPINIROLE 0.5 MG PO SCH (19:40)
[2019-05-09] MEDS: [UNRECOGNIZED DRUG - OTHER] PO SCH (19:40)
[2019-05-10] MEDS: Acetaminophen 325 MG Tab PO SCH ×4 (03:04→19:43)
[2019-05-10] MEDS: [UNRECOGNIZED DRUG - OTHER] PO SCH (07:40)
[2019-05-10] MEDS: GABAPENTIN 100 MG PO SCH ×2 (07:41→13:02)
[2019-05-10] MEDS: Multivitamin, Stress Formula with Zinc Tab PO SCH (07:41)
[2019-05-10] MEDS: SERTRALINE 100 MG PO SCH (07:41)
[2019-05-10] MEDS: [UNRECOGNIZED DRUG - OTHER] PO SCH (07:41)
[2019-05-10] MEDS: Famotidine 20 MG Tab PO SCH (07:42)
[2019-05-10] MEDS: Omeprazole 20 MG Cap.CR PO SCH (07:42)
[2019-05-10] MEDS: GABAPENTIN 300 MG PO SCH (19:42)
[2019-05-10] MEDS: [UNRECOGNIZED DRUG - OTHER] PO SCH (19:43)
[2019-05-10] MEDS: Melatonin 3 MG Tab PO SCH (19:43)
[2019-05-10] MEDS: ROPINIROLE 0.5 MG PO SCH (19:43)
[2019-05-11] MEDS: Acetaminophen 325 MG Tab PO SCH ×4 (03:02→19:35)
[2019-05-11] MEDS: [UNRECOGNIZED DRUG - OTHER] PO SCH (08:16)
[2019-05-11] MEDS: Omeprazole 20 MG Cap.CR PO SCH (08:17)
[2019-05-11] MEDS: SERTRALINE 100 MG PO SCH (08:17)
[2019-05-11] MEDS: Multivitamin, Stress Formula with Zinc Tab PO SCH (08:17)
[2019-05-11] MEDS: GABAPENTIN 100 MG PO SCH ×2 (08:17→13:18)
[2019-05-11] MEDS: [UNRECOGNIZED DRUG - OTHER] PO SCH (08:17)
[2019-05-11] MEDS: Famotidine 20 MG Tab PO SCH (08:18)
[2019-05-11] MEDS: GABAPENTIN 300 MG PO SCH (19:33)
[2019-05-11] MEDS: [UNRECOGNIZED DRUG - OTHER] PO SCH (19:34)
[2019-05-11] MEDS: ROPINIROLE 0.5 MG PO SCH (19:34)
[2019-05-11] MEDS: Melatonin 3 MG Tab PO SCH (19:35)
[2019-05-12] MEDS: Acetaminophen 325 MG Tab PO SCH ×4 (05:23→19:37)
[2019-05-12] MEDS: [UNRECOGNIZED DRUG - OTHER] PO SCH (08:23)
[2019-05-12] MEDS: SERTRALINE 100 MG PO SCH (08:23)
[2019-05-12] MEDS: [UNRECOGNIZED DRUG - OTHER] PO SCH (08:23)
[2019-05-12] MEDS: GABAPENTIN 100 MG PO SCH ×2 (08:23→12:43)
[2019-05-12] MEDS: Omeprazole 20 MG Cap.CR PO SCH (08:24)
[2019-05-12] MEDS: Multivitamin, Stress Formula with Zinc Tab PO SCH (08:24)
[2019-05-12] MEDS: Famotidine 20 MG Tab PO SCH (08:24)
[2019-05-12] MEDS: WARFARIN PO SCH (19:37)
[2019-05-12] MEDS: GABAPENTIN 300 MG PO SCH (19:37)
[2019-05-12] MEDS: ROPINIROLE 0.5 MG PO SCH (19:37)
[2019-05-12] MEDS: Melatonin 3 MG Tab PO SCH (19:38)
[2019-05-13] MEDS: Acetaminophen 325 MG Tab PO SCH ×4 (07:07→20:27)
[2019-05-13] MEDS: GABAPENTIN 100 MG PO SCH ×2 (07:48→11:59)
[2019-05-13] MEDS: Famotidine 20 MG Tab PO SCH (07:49)
[2019-05-13] MEDS: Multivitamin, Stress Formula with Zinc Tab PO SCH (07:49)
[2019-05-13] MEDS: Omeprazole 20 MG Cap.CR PO SCH (07:49)
[2019-05-13] MEDS: [UNRECOGNIZED DRUG - OTHER] PO SCH (07:50)
[2019-05-13] MEDS: [UNRECOGNIZED DRUG - OTHER] PO SCH (07:50)
[2019-05-13] MEDS: SERTRALINE 100 MG PO SCH (07:50)
[2019-05-13 10:47] LABS: ANION GAP 11.4 mmol/L (10-20)
[2019-05-13] MEDS: Ferrous Sulfate 325 MG Tab PO SCH (11:55)
[2019-05-13] MEDS: Melatonin 3 MG Tab PO SCH (20:28)
[2019-05-13] MEDS: [UNRECOGNIZED DRUG - OTHER] PO SCH (20:50)
[2019-05-13] MEDS: GABAPENTIN 300 MG PO SCH (20:53)
[2019-05-13] MEDS: ROPINIROLE 0.5 MG PO SCH (20:53)
[2019-05-14] MEDS: Acetaminophen 325 MG Tab PO SCH ×4 (02:45→20:47)
[2019-05-14] MEDS: [UNRECOGNIZED DRUG - OTHER] PO SCH (07:52)
[2019-05-14] MEDS: Omeprazole 20 MG Cap.CR PO SCH (07:53)
[2019-05-14] MEDS: SERTRALINE 100 MG PO SCH (07:54)
[2019-05-14] MEDS: Multivitamin, Stress Formula with Zinc Tab PO SCH (07:55)
[2019-05-14] MEDS: GABAPENTIN 100 MG PO SCH ×2 (07:55→12:30)
[2019-05-14] MEDS: [UNRECOGNIZED DRUG - OTHER] PO SCH (07:55)
[2019-05-14] MEDS: Famotidine 20 MG Tab PO SCH (07:55)
[2019-05-14] MEDS: Melatonin 3 MG Tab PO SCH (20:46)
[2019-05-14] MEDS: GABAPENTIN 300 MG PO SCH (20:47)
[2019-05-14] MEDS: ROPINIROLE 0.5 MG PO SCH (20:47)
[2019-05-14] MEDS: [UNRECOGNIZED DRUG - OTHER] PO SCH (20:50)
[2019-05-15] MEDS: Acetaminophen 325 MG Tab PO SCH ×4 (03:29→20:05)
[2019-05-15] MEDS: [UNRECOGNIZED DRUG - OTHER] PO SCH (08:11)
[2019-05-15] MEDS: Omeprazole 20 MG Cap.CR PO SCH (08:11)
[2019-05-15] MEDS: SERTRALINE 100 MG PO SCH (08:11)
[2019-05-15] MEDS: Famotidine 20 MG Tab PO SCH (08:11)
[2019-05-15] MEDS: Multivitamin, Stress Formula with Zinc Tab PO SCH (08:11)
[2019-05-15] MEDS: [UNRECOGNIZED DRUG - OTHER] PO SCH (08:11)
[2019-05-15] MEDS: GABAPENTIN 100 MG PO SCH ×2 (08:12→12:04)
[2019-05-15] MEDS: Ferrous Sulfate 325 MG Tab PO SCH (12:04)
[2019-05-15] MEDS: GABAPENTIN 300 MG PO SCH (20:03)
[2019-05-15] MEDS: WARFARIN PO SCH (20:04)
[2019-05-15] MEDS: ROPINIROLE 0.5 MG PO SCH (20:05)
[2019-05-15] MEDS: Melatonin 3 MG Tab PO SCH (20:05)
[2019-05-16] MEDS: Acetaminophen 325 MG Tab PO SCH ×4 (04:06→21:00)
[2019-05-16] MEDS: [UNRECOGNIZED DRUG - OTHER] PO SCH (08:21)
[2019-05-16] MEDS: Multivitamin, Stress Formula with Zinc Tab PO SCH (08:21)
[2019-05-16] MEDS: Famotidine 20 MG Tab PO SCH (08:21)
[2019-05-16] MEDS: Omeprazole 20 MG Cap.CR PO SCH (08:21)
[2019-05-16] MEDS: GABAPENTIN 100 MG PO SCH ×2 (08:22→12:32)
[2019-05-16] MEDS: SERTRALINE 100 MG PO SCH (08:22)
[2019-05-16] MEDS: [UNRECOGNIZED DRUG - OTHER] PO SCH (08:22)
[2019-05-16] MEDS: [UNRECOGNIZED DRUG - OTHER] PO SCH (21:00)
[2019-05-16] MEDS: Melatonin 3 MG Tab PO SCH (21:00)
[2019-05-16] MEDS: ROPINIROLE 0.5 MG PO SCH (21:00)
[2019-05-16] MEDS: GABAPENTIN 300 MG PO SCH (21:00)
[2019-05-17] MEDS: Acetaminophen 325 MG Tab PO SCH ×4 (04:35→20:22)
[2019-05-17] MEDS: [UNRECOGNIZED DRUG - OTHER] PO SCH (10:07)
[2019-05-17] MEDS: SERTRALINE 100 MG PO SCH (10:07)
[2019-05-17] MEDS: Famotidine 20 MG Tab PO SCH (10:07)
[2019-05-17] MEDS: [UNRECOGNIZED DRUG - OTHER] PO SCH (10:07)
[2019-05-17] MEDS: Multivitamin, Stress Formula with Zinc Tab PO SCH (10:07)
[2019-05-17] MEDS: Omeprazole 20 MG Cap.CR PO SCH (10:07)
[2019-05-17] MEDS: GABAPENTIN 100 MG PO SCH ×2 (10:08→12:24)
[2019-05-17] MEDS: Ferrous Sulfate 325 MG Tab PO SCH (12:24)
[2019-05-17] MEDS: Melatonin 3 MG Tab PO SCH (20:22)
[2019-05-17] MEDS: GABAPENTIN 300 MG PO SCH (20:23)
[2019-05-17] MEDS: ROPINIROLE 0.5 MG PO SCH (20:24)
[2019-05-17] MEDS: [UNRECOGNIZED DRUG - OTHER] PO SCH (20:24)
[2019-05-18] MEDS: Acetaminophen 325 MG Tab PO SCH ×4 (05:11→20:48)
[2019-05-18] MEDS: [UNRECOGNIZED DRUG - OTHER] PO SCH (08:43)
[2019-05-18] MEDS: Famotidine 20 MG Tab PO SCH (08:43)
[2019-05-18] MEDS: [UNRECOGNIZED DRUG - OTHER] PO SCH (08:43)
[2019-05-18] MEDS: GABAPENTIN 100 MG PO SCH ×2 (08:43→13:13)
[2019-05-18] MEDS: SERTRALINE 100 MG PO SCH (08:43)
[2019-05-18] MEDS: Omeprazole 20 MG Cap.CR PO SCH (08:44)
[2019-05-18] MEDS: Multivitamin, Stress Formula with Zinc Tab PO SCH (08:44)
[2019-05-18] MEDS: GABAPENTIN 300 MG PO SCH (20:47)
[2019-05-18] MEDS: ROPINIROLE 0.5 MG PO SCH (20:47)
[2019-05-18] MEDS: [UNRECOGNIZED DRUG - OTHER] PO SCH (20:47)
[2019-05-18] MEDS: Melatonin 3 MG Tab PO SCH (20:48)
[2019-05-19] MEDS: Acetaminophen 325 MG Tab PO SCH ×4 (05:12→19:34)
[2019-05-19] MEDS: Omeprazole 20 MG Cap.CR PO SCH (08:16)
[2019-05-19] MEDS: Multivitamin, Stress Formula with Zinc Tab PO SCH (08:16)
[2019-05-19] MEDS: Famotidine 20 MG Tab PO SCH (08:16)
[2019-05-19] MEDS: SERTRALINE 100 MG PO SCH (08:16)
[2019-05-19] MEDS: [UNRECOGNIZED DRUG - OTHER] PO SCH (08:16)
[2019-05-19] MEDS: GABAPENTIN 100 MG PO SCH ×2 (08:17→12:47)
[2019-05-19] MEDS: [UNRECOGNIZED DRUG - OTHER] PO SCH (08:25)
[2019-05-19] MEDS: Ferrous Sulfate 325 MG Tab PO SCH (12:57)
[2019-05-19] MEDS: Melatonin 3 MG Tab PO SCH (19:34)
[2019-05-19] MEDS: GABAPENTIN 300 MG PO SCH (19:35)
[2019-05-19] MEDS: WARFARIN PO SCH (19:35)
[2019-05-19] MEDS: ROPINIROLE 0.5 MG PO SCH (19:35)
[2019-05-20] MEDS: Acetaminophen 325 MG Tab PO SCH ×4 (06:01→19:40)
[2019-05-20] MEDS: GABAPENTIN 100 MG PO SCH ×2 (09:23→13:44)
[2019-05-20] MEDS: SERTRALINE 100 MG PO SCH (09:24)
[2019-05-20] MEDS: Multivitamin, Stress Formula with Zinc Tab PO SCH (09:24)
[2019-05-20] MEDS: Famotidine 20 MG Tab PO SCH (09:24)
[2019-05-20] MEDS: Omeprazole 20 MG Cap.CR PO SCH (09:24)
[2019-05-20] MEDS: [UNRECOGNIZED DRUG - OTHER] PO SCH (09:24)
[2019-05-20] MEDS: [UNRECOGNIZED DRUG - OTHER] PO SCH (09:24)
[2019-05-20] MEDS: GABAPENTIN 300 MG PO SCH (19:39)
[2019-05-20] MEDS: [UNRECOGNIZED DRUG - OTHER] PO SCH (19:40)
[2019-05-20] MEDS: Melatonin 3 MG Tab PO SCH (19:41)
[2019-05-20] MEDS: ROPINIROLE 0.5 MG PO SCH (19:41)
[2019-05-21] MEDS: Acetaminophen 325 MG Tab PO SCH ×4 (06:52→20:00)
[2019-05-21] MEDS: Famotidine 20 MG Tab PO SCH (08:20)
[2019-05-21] MEDS: GABAPENTIN 100 MG PO SCH ×2 (08:20→13:09)
[2019-05-21] MEDS: Omeprazole 20 MG Cap.CR PO SCH (08:21)
[2019-05-21] MEDS: [UNRECOGNIZED DRUG - OTHER] PO SCH (08:21)
[2019-05-21] MEDS: SERTRALINE 100 MG PO SCH (08:21)
[2019-05-21] MEDS: Multivitamin, Stress Formula with Zinc Tab PO SCH (08:21)
[2019-05-21] MEDS: [UNRECOGNIZED DRUG - OTHER] PO SCH (08:21)
[2019-05-21] MEDS: Ferrous Sulfate 325 MG Tab PO SCH (13:09)
[2019-05-21] MEDS: ROPINIROLE 0.5 MG PO SCH (19:59)
[2019-05-21] MEDS: GABAPENTIN 300 MG PO SCH (19:59)
[2019-05-21] MEDS: Melatonin 3 MG Tab PO SCH (20:00)
[2019-05-21] MEDS: [UNRECOGNIZED DRUG - OTHER] PO SCH (20:00)
[2019-05-22] MEDS: Acetaminophen 325 MG Tab PO SCH ×4 (03:42→21:14)
[2019-05-22] MEDS: SERTRALINE 100 MG PO SCH (08:21)
[2019-05-22] MEDS: [UNRECOGNIZED DRUG - OTHER] PO SCH (08:22)
[2019-05-22] MEDS: Famotidine 20 MG Tab PO SCH (08:22)
[2019-05-22] MEDS: Omeprazole 20 MG Cap.CR PO SCH (08:22)
[2019-05-22] MEDS: Multivitamin, Stress Formula with Zinc Tab PO SCH (08:22)
[2019-05-22] MEDS: [UNRECOGNIZED DRUG - OTHER] PO SCH (08:22)
[2019-05-22] MEDS: Loperamide 2 MG Cap PO PRN (08:22)
[2019-05-22] MEDS: GABAPENTIN 100 MG PO SCH ×2 (08:24→13:23)
[2019-05-22] MEDS: Melatonin 3 MG Tab PO SCH (21:14)
[2019-05-22] MEDS: WARFARIN PO SCH (21:16)
[2019-05-22] MEDS: ROPINIROLE 0.5 MG PO SCH (21:16)
[2019-05-22] MEDS: GABAPENTIN 300 MG PO SCH (21:19)
[2019-05-23] MEDS: Acetaminophen 325 MG Tab PO SCH ×4 (02:32→20:00)
[2019-05-23] MEDS: Multivitamin, Stress Formula with Zinc Tab PO SCH (08:54)
[2019-05-23] MEDS: Famotidine 20 MG Tab PO SCH (08:54)
[2019-05-23] MEDS: [UNRECOGNIZED DRUG - OTHER] PO SCH (08:55)
[2019-05-23] MEDS: GABAPENTIN 100 MG PO SCH ×2 (08:55→12:15)
[2019-05-23] MEDS: Omeprazole 20 MG Cap.CR PO SCH (08:55)
[2019-05-23] MEDS: [UNRECOGNIZED DRUG - OTHER] PO SCH (08:56)
[2019-05-23] MEDS: SERTRALINE 100 MG PO SCH (08:56)
[2019-05-23] MEDS: Ferrous Sulfate 325 MG Tab PO SCH (12:14)
[2019-05-23] MEDS: GABAPENTIN 300 MG PO SCH (19:58)
[2019-05-23] MEDS: ROPINIROLE 0.5 MG PO SCH (19:59)
[2019-05-23] MEDS: [UNRECOGNIZED DRUG - OTHER] PO SCH (19:59)
[2019-05-23] MEDS: Melatonin 3 MG Tab PO SCH (19:59)
[2019-05-24] MEDS: Acetaminophen 325 MG Tab PO SCH ×4 (05:07→20:23)
[2019-05-24] MEDS: [UNRECOGNIZED DRUG - OTHER] PO SCH (07:54)
[2019-05-24] MEDS: SERTRALINE 100 MG PO SCH (07:54)
[2019-05-24] MEDS: Multivitamin, Stress Formula with Zinc Tab PO SCH (07:55)
[2019-05-24] MEDS: Omeprazole 20 MG Cap.CR PO SCH (07:55)
[2019-05-24] MEDS: Famotidine 20 MG Tab PO SCH (07:55)
[2019-05-24] MEDS: [UNRECOGNIZED DRUG - OTHER] PO SCH (07:55)
[2019-05-24] MEDS: GABAPENTIN 100 MG PO SCH ×2 (07:57→12:02)
[2019-05-24] MEDS: Melatonin 3 MG Tab PO SCH (20:23)
[2019-05-24] MEDS: [UNRECOGNIZED DRUG - OTHER] PO SCH (20:24)
[2019-05-24] MEDS: ROPINIROLE 0.5 MG PO SCH (20:24)
[2019-05-24] MEDS: GABAPENTIN 300 MG PO SCH (20:25)
[2019-05-25] MEDS: Acetaminophen 325 MG Tab PO SCH ×4 (02:43→20:29)
[2019-05-25] MEDS: GABAPENTIN 100 MG PO SCH ×2 (07:43→12:01)
[2019-05-25] MEDS: SERTRALINE 100 MG PO SCH (07:43)
[2019-05-25] MEDS: [UNRECOGNIZED DRUG - OTHER] PO SCH (07:43)
[2019-05-25] MEDS: Famotidine 20 MG Tab PO SCH (07:44)
[2019-05-25] MEDS: Omeprazole 20 MG Cap.CR PO SCH (07:45)
[2019-05-25] MEDS: Multivitamin, Stress Formula with Zinc Tab PO SCH (07:45)
[2019-05-25] MEDS: [UNRECOGNIZED DRUG - OTHER] PO SCH (07:46)
[2019-05-25] MEDS: Ferrous Sulfate 325 MG Tab PO SCH (12:01)
[2019-05-25] MEDS: [UNRECOGNIZED DRUG - OTHER] PO SCH (20:29)
[2019-05-25] MEDS: Melatonin 3 MG Tab PO SCH (20:29)
[2019-05-25] MEDS: GABAPENTIN 300 MG PO SCH (20:29)
[2019-05-25] MEDS: ROPINIROLE 0.5 MG PO SCH (20:30)
[2019-05-26] MEDS: Acetaminophen 325 MG Tab PO SCH ×4 (06:22→19:50)
[2019-05-26] MEDS: SERTRALINE 100 MG PO SCH (08:34)
[2019-05-26] MEDS: [UNRECOGNIZED DRUG - OTHER] PO SCH (08:34)
[2019-05-26] MEDS: [UNRECOGNIZED DRUG - OTHER] PO SCH (08:34)
[2019-05-26] MEDS: Loperamide 2 MG Cap PO PRN (08:35)
[2019-05-26] MEDS: Multivitamin, Stress Formula with Zinc Tab PO SCH (08:35)
[2019-05-26] MEDS: Omeprazole 20 MG Cap.CR PO SCH (08:35)
[2019-05-26] MEDS: GABAPENTIN 100 MG PO SCH ×2 (08:36→14:16)
[2019-05-26] MEDS: Famotidine 20 MG Tab PO SCH (08:36)
[2019-05-26] MEDS: Melatonin 3 MG Tab PO SCH (19:50)
[2019-05-26] MEDS: GABAPENTIN 300 MG PO SCH (19:50)
[2019-05-26] MEDS: WARFARIN PO SCH (19:51)
[2019-05-26] MEDS: ROPINIROLE 0.5 MG PO SCH (19:51)
[2019-05-27] MEDS: Acetaminophen 325 MG Tab PO SCH ×4 (06:43→19:37)
[2019-05-27] MEDS: [UNRECOGNIZED DRUG - OTHER] PO SCH (07:49)
[2019-05-27] MEDS: Multivitamin, Stress Formula with Zinc Tab PO SCH (07:49)
[2019-05-27] MEDS: Famotidine 20 MG Tab PO SCH (07:49)
[2019-05-27] MEDS: GABAPENTIN 100 MG PO SCH ×2 (07:49→12:25)
[2019-05-27] MEDS: Omeprazole 20 MG Cap.CR PO SCH (07:49)
[2019-05-27] MEDS: SERTRALINE 100 MG PO SCH (07:49)
[2019-05-27] MEDS: [UNRECOGNIZED DRUG - OTHER] PO SCH (07:50)
[2019-05-27] MEDS: Ferrous Sulfate 325 MG Tab PO SCH (12:25)
[2019-05-27] MEDS: Melatonin 3 MG Tab PO SCH (19:37)
[2019-05-27] MEDS: GABAPENTIN 300 MG PO SCH (19:38)
[2019-05-27] MEDS: [UNRECOGNIZED DRUG - OTHER] PO SCH (19:38)
[2019-05-27] MEDS: ROPINIROLE 0.5 MG PO SCH (19:38)
[2019-05-28] MEDS: Acetaminophen 325 MG Tab PO SCH ×4 (01:52→19:48)
[2019-05-28] MEDS: Multivitamin, Stress Formula with Zinc Tab PO SCH (08:57)
[2019-05-28] MEDS: Omeprazole 20 MG Cap.CR PO SCH (08:57)
[2019-05-28] MEDS: Famotidine 20 MG Tab PO SCH (08:57)
[2019-05-28] MEDS: GABAPENTIN 100 MG PO SCH ×2 (08:57→12:45)
[2019-05-28] MEDS: [UNRECOGNIZED DRUG - OTHER] PO SCH (08:58)
[2019-05-28] MEDS: SERTRALINE 100 MG PO SCH (08:58)
[2019-05-28] MEDS: [UNRECOGNIZED DRUG - OTHER] PO SCH (08:58)
[2019-05-28] MEDS: ROPINIROLE 0.5 MG PO SCH (19:47)
[2019-05-28] MEDS: [UNRECOGNIZED DRUG - OTHER] PO SCH (19:47)
[2019-05-28] MEDS: GABAPENTIN 300 MG PO SCH (19:47)
[2019-05-28] MEDS: Melatonin 3 MG Tab PO SCH (19:48)
[2019-05-29] MEDS: Acetaminophen 325 MG Tab PO SCH ×4 (06:43→20:10)
[2019-05-29] MEDS: GABAPENTIN 100 MG PO SCH ×2 (08:16→13:08)
[2019-05-29] MEDS: [UNRECOGNIZED DRUG - OTHER] PO SCH (08:17)
[2019-05-29] MEDS: Omeprazole 20 MG Cap.CR PO SCH (08:17)
[2019-05-29] MEDS: [UNRECOGNIZED DRUG - OTHER] PO SCH (08:17)
[2019-05-29] MEDS: Famotidine 20 MG Tab PO SCH (08:17)
[2019-05-29] MEDS: Multivitamin, Stress Formula with Zinc Tab PO SCH (08:17)
[2019-05-29] MEDS: SERTRALINE 100 MG PO SCH (08:17)
[2019-05-29] MEDS: Ferrous Sulfate 325 MG Tab PO SCH (13:08)
[2019-05-29] MEDS: Melatonin 3 MG Tab PO SCH (20:10)
[2019-05-29] MEDS: GABAPENTIN 300 MG PO SCH (20:11)
[2019-05-29] MEDS: ROPINIROLE 0.5 MG PO SCH (20:11)
[2019-05-29] MEDS: WARFARIN PO SCH (20:11)
[2019-05-30] MEDS: Acetaminophen 325 MG Tab PO SCH ×4 (06:14→19:53)
[2019-05-30] MEDS: [UNRECOGNIZED DRUG - OTHER] PO SCH (07:43)
[2019-05-30] MEDS: GABAPENTIN 100 MG PO SCH ×2 (07:43→13:14)
[2019-05-30] MEDS: Omeprazole 20 MG Cap.CR PO SCH (07:43)
[2019-05-30] MEDS: SERTRALINE 100 MG PO SCH (07:43)
[2019-05-30] MEDS: Famotidine 20 MG Tab PO SCH (07:43)
[2019-05-30] MEDS: [UNRECOGNIZED DRUG - OTHER] PO SCH (07:43)
[2019-05-30] MEDS: Multivitamin, Stress Formula with Zinc Tab PO SCH (07:43)
[2019-05-30] MEDS: GABAPENTIN 300 MG PO SCH (19:52)
[2019-05-30] MEDS: Melatonin 3 MG Tab PO SCH (19:52)
[2019-05-30] MEDS: ROPINIROLE 0.5 MG PO SCH (19:53)
[2019-05-30] MEDS: [UNRECOGNIZED DRUG - OTHER] PO SCH (19:53)
[2019-05-31] MEDS: Acetaminophen 325 MG Tab PO SCH ×4 (05:25→20:48)
[2019-05-31] MEDS: GABAPENTIN 100 MG PO SCH ×2 (08:45→12:31)
[2019-05-31] MEDS: [UNRECOGNIZED DRUG - OTHER] PO SCH (08:45)
[2019-05-31] MEDS: Multivitamin, Stress Formula with Zinc Tab PO SCH (08:45)
[2019-05-31] MEDS: [UNRECOGNIZED DRUG - OTHER] PO SCH (08:45)
[2019-05-31] MEDS: SERTRALINE 100 MG PO SCH (08:45)
[2019-05-31] MEDS: Omeprazole 20 MG Cap.CR PO SCH (08:45)
[2019-05-31] MEDS: Famotidine 20 MG Tab PO SCH (08:45)
[2019-05-31] MEDS: Ferrous Sulfate 325 MG Tab PO SCH (12:31)
[2019-05-31] MEDS: Melatonin 3 MG Tab PO SCH (20:47)
[2019-05-31] MEDS: ROPINIROLE 0.5 MG PO SCH (20:48)
[2019-05-31] MEDS: [UNRECOGNIZED DRUG - OTHER] PO SCH (20:48)
[2019-05-31] MEDS: GABAPENTIN 300 MG PO SCH (20:48)
[2019-06-01] MEDS: Acetaminophen 325 MG Tab PO SCH ×4 (04:54→20:01)
[2019-06-01] MEDS: GABAPENTIN 100 MG PO SCH ×2 (07:53→12:29)
[2019-06-01] MEDS: Famotidine 20 MG Tab PO SCH (07:53)
[2019-06-01] MEDS: SERTRALINE 100 MG PO SCH (07:53)
[2019-06-01] MEDS: Omeprazole 20 MG Cap.CR PO SCH (07:54)
[2019-06-01] MEDS: Multivitamin, Stress Formula with Zinc Tab PO SCH (07:54)
[2019-06-01] MEDS: [UNRECOGNIZED DRUG - OTHER] PO SCH (07:54)
[2019-06-01] MEDS: [UNRECOGNIZED DRUG - OTHER] PO SCH (07:54)
[2019-06-01] MEDS: [UNRECOGNIZED DRUG - OTHER] PO SCH (20:00)
[2019-06-01] MEDS: ROPINIROLE 0.5 MG PO SCH (20:01)
[2019-06-01] MEDS: Melatonin 3 MG Tab PO SCH (20:01)
[2019-06-01] MEDS: GABAPENTIN 300 MG PO SCH (20:02)
[2019-06-02] MEDS: Acetaminophen 325 MG Tab PO SCH ×4 (01:10→19:55)
[2019-06-02] MEDS: Omeprazole 20 MG Cap.CR PO SCH (09:33)
[2019-06-02] MEDS: Multivitamin, Stress Formula with Zinc Tab PO SCH (09:33)
[2019-06-02] MEDS: GABAPENTIN 100 MG PO SCH ×2 (09:33→12:19)
[2019-06-02] MEDS: Famotidine 20 MG Tab PO SCH (09:33)
[2019-06-02] MEDS: SERTRALINE 100 MG PO SCH (09:34)
[2019-06-02] MEDS: [UNRECOGNIZED DRUG - OTHER] PO SCH (09:34)
[2019-06-02] MEDS: [UNRECOGNIZED DRUG - OTHER] PO SCH (09:34)
[2019-06-02] MEDS: Ferrous Sulfate 325 MG Tab PO SCH (12:19)
[2019-06-02] MEDS: Melatonin 3 MG Tab PO SCH (19:55)
[2019-06-02] MEDS: GABAPENTIN 300 MG PO SCH (19:56)
[2019-06-02] MEDS: ROPINIROLE 0.5 MG PO SCH (19:57)
[2019-06-02] MEDS: WARFARIN PO SCH (19:57)
[2019-06-03] MEDS: Acetaminophen 325 MG Tab PO SCH ×4 (06:20→19:19)
[2019-06-03] MEDS: [UNRECOGNIZED DRUG - OTHER] PO SCH (07:30)
[2019-06-03] MEDS: Famotidine 20 MG Tab PO SCH (07:30)
[2019-06-03] MEDS: [UNRECOGNIZED DRUG - OTHER] PO SCH (07:30)
[2019-06-03] MEDS: SERTRALINE 100 MG PO SCH (07:30)
[2019-06-03] MEDS: GABAPENTIN 100 MG PO SCH ×2 (07:30→13:01)
[2019-06-03] MEDS: Omeprazole 20 MG Cap.CR PO SCH (07:30)
[2019-06-03] MEDS: Multivitamin, Stress Formula with Zinc Tab PO SCH (07:30)
[2019-06-03] MEDS: ROPINIROLE 0.5 MG PO SCH (19:19)
[2019-06-03] MEDS: [UNRECOGNIZED DRUG - OTHER] PO SCH (19:19)
[2019-06-03] MEDS: GABAPENTIN 300 MG PO SCH (19:19)
[2019-06-03] MEDS: Melatonin 3 MG Tab PO SCH (19:19)
[2019-06-04] MEDS: Acetaminophen 325 MG Tab PO SCH ×4 (01:31→19:13)
[2019-06-04] MEDS: GABAPENTIN 100 MG PO SCH ×2 (07:35→12:40)
[2019-06-04] MEDS: Omeprazole 20 MG Cap.CR PO SCH (07:36)
[2019-06-04] MEDS: SERTRALINE 100 MG PO SCH (07:36)
[2019-06-04] MEDS: [UNRECOGNIZED DRUG - OTHER] PO SCH (07:36)
[2019-06-04] MEDS: Famotidine 20 MG Tab PO SCH (07:36)
[2019-06-04] MEDS: Multivitamin, Stress Formula with Zinc Tab PO SCH (07:36)
[2019-06-04] MEDS: [UNRECOGNIZED DRUG - OTHER] PO SCH (07:37)
[2019-06-04] MEDS: Ferrous Sulfate 325 MG Tab PO SCH (10:55)
[2019-06-04] MEDS: Melatonin 3 MG Tab PO SCH (19:12)
[2019-06-04] MEDS: ROPINIROLE 0.5 MG PO SCH (19:13)
[2019-06-04] MEDS: [UNRECOGNIZED DRUG - OTHER] PO SCH (19:13)
[2019-06-04] MEDS: GABAPENTIN 300 MG PO SCH (19:14)
[2019-06-05] MEDS: Acetaminophen 325 MG Tab PO SCH ×4 (02:06→21:21)
[2019-06-05] MEDS: SERTRALINE 100 MG PO SCH (07:40)
[2019-06-05] MEDS: [UNRECOGNIZED DRUG - OTHER] PO SCH (07:40)
[2019-06-05] MEDS: [UNRECOGNIZED DRUG - OTHER] PO SCH (07:40)
[2019-06-05] MEDS: GABAPENTIN 100 MG PO SCH ×2 (07:42→12:20)
[2019-06-05] MEDS: Omeprazole 20 MG Cap.CR PO SCH (07:42)
[2019-06-05] MEDS: Famotidine 20 MG Tab PO SCH (07:42)
[2019-06-05] MEDS: Multivitamin, Stress Formula with Zinc Tab PO SCH (07:43)
[2019-06-05] MEDS: Calcium Carbonate 750 MG Tab.Chew PO PRN (12:04)
[2019-06-05] MEDS: GABAPENTIN 300 MG PO SCH (21:20)
[2019-06-05] MEDS: WARFARIN PO SCH (21:20)
[2019-06-05] MEDS: Melatonin 3 MG Tab PO SCH (21:21)
[2019-06-05] MEDS: ROPINIROLE 0.5 MG PO SCH (21:24)
[2019-06-06] MEDS: Acetaminophen 325 MG Tab PO SCH ×4 (01:04→20:22)
[2019-06-06] MEDS: [UNRECOGNIZED DRUG - OTHER] PO SCH (07:42)
[2019-06-06] MEDS: GABAPENTIN 100 MG PO SCH ×2 (07:43→12:41)
[2019-06-06] MEDS: SERTRALINE 100 MG PO SCH (07:43)
[2019-06-06] MEDS: Omeprazole 20 MG Cap.CR PO SCH (07:43)
[2019-06-06] MEDS: Multivitamin, Stress Formula with Zinc Tab PO SCH (07:43)
[2019-06-06] MEDS: Famotidine 20 MG Tab PO SCH (07:43)
[2019-06-06] MEDS: [UNRECOGNIZED DRUG - OTHER] PO SCH (07:43)
[2019-06-06] MEDS: Ferrous Sulfate 325 MG Tab PO SCH (12:41)
[2019-06-06] MEDS: GABAPENTIN 300 MG PO SCH (20:19)
[2019-06-06] MEDS: ROPINIROLE 0.5 MG PO SCH (20:20)
[2019-06-06] MEDS: [UNRECOGNIZED DRUG - OTHER] PO SCH (20:20)
[2019-06-06] MEDS: Melatonin 3 MG Tab PO SCH (20:21)
[2019-06-07] MEDS: Acetaminophen 325 MG Tab PO SCH ×4 (03:10→20:24)
[2019-06-07] MEDS: Famotidine 20 MG Tab PO SCH (08:24)
[2019-06-07] MEDS: [UNRECOGNIZED DRUG - OTHER] PO SCH (08:24)
[2019-06-07] MEDS: Omeprazole 20 MG Cap.CR PO SCH (08:24)
[2019-06-07] MEDS: SERTRALINE 100 MG PO SCH (08:24)
[2019-06-07] MEDS: Multivitamin, Stress Formula with Zinc Tab PO SCH (08:24)
[2019-06-07] MEDS: GABAPENTIN 100 MG PO SCH ×2 (08:24→13:39)
[2019-06-07] MEDS: [UNRECOGNIZED DRUG - OTHER] PO SCH (08:24)
[2019-06-07] MEDS: Melatonin 3 MG Tab PO SCH (20:24)
[2019-06-07] MEDS: [UNRECOGNIZED DRUG - OTHER] PO SCH (20:25)
[2019-06-07] MEDS: ROPINIROLE 0.5 MG PO SCH (20:25)
[2019-06-07] MEDS: GABAPENTIN 300 MG PO SCH (20:25)
[2019-06-08] MEDS: Acetaminophen 325 MG Tab PO SCH ×4 (02:03→19:55)
[2019-06-08] MEDS: GABAPENTIN 100 MG PO SCH ×2 (08:02→12:38)
[2019-06-08] MEDS: SERTRALINE 100 MG PO SCH (08:02)
[2019-06-08] MEDS: Omeprazole 20 MG Cap.CR PO SCH (08:02)
[2019-06-08] MEDS: Famotidine 20 MG Tab PO SCH (08:02)
[2019-06-08] MEDS: [UNRECOGNIZED DRUG - OTHER] PO SCH (08:02)
[2019-06-08] MEDS: Multivitamin, Stress Formula with Zinc Tab PO SCH (08:02)
[2019-06-08] MEDS: [UNRECOGNIZED DRUG - OTHER] PO SCH (08:02)
[2019-06-08] MEDS: Ferrous Sulfate 325 MG Tab PO SCH (12:38)
[2019-06-08] MEDS: ROPINIROLE 0.5 MG PO SCH (19:54)
[2019-06-08] MEDS: GABAPENTIN 300 MG PO SCH (19:54)
[2019-06-08] MEDS: [UNRECOGNIZED DRUG - OTHER] PO SCH (19:54)
[2019-06-08] MEDS: Melatonin 3 MG Tab PO SCH (19:55)
[2019-06-09] MEDS: Acetaminophen 325 MG Tab PO SCH ×4 (01:51→19:38)
[2019-06-09] MEDS: Famotidine 20 MG Tab PO SCH (07:47)
[2019-06-09] MEDS: [UNRECOGNIZED DRUG - OTHER] PO SCH (07:47)
[2019-06-09] MEDS: Omeprazole 20 MG Cap.CR PO SCH (07:47)
[2019-06-09] MEDS: GABAPENTIN 100 MG PO SCH ×2 (07:47→13:42)
[2019-06-09] MEDS: SERTRALINE 100 MG PO SCH (07:47)
[2019-06-09] MEDS: Multivitamin, Stress Formula with Zinc Tab PO SCH (07:47)
[2019-06-09] MEDS: [UNRECOGNIZED DRUG - OTHER] PO SCH (07:48)
[2019-06-09] MEDS: Melatonin 3 MG Tab PO SCH (19:38)
[2019-06-09] MEDS: ROPINIROLE 0.5 MG PO SCH (19:39)
[2019-06-09] MEDS: GABAPENTIN 300 MG PO SCH (19:39)
[2019-06-09] MEDS: WARFARIN PO SCH (19:39)
[2019-06-10] MEDS: Acetaminophen 325 MG Tab PO SCH ×4 (04:44→19:44)
[2019-06-10] MEDS: GABAPENTIN 100 MG PO SCH ×2 (07:48→12:57)
[2019-06-10] MEDS: [UNRECOGNIZED DRUG - OTHER] PO SCH (07:48)
[2019-06-10] MEDS: SERTRALINE 100 MG PO SCH (07:48)
[2019-06-10] MEDS: Omeprazole 20 MG Cap.CR PO SCH (07:49)
[2019-06-10] MEDS: Famotidine 20 MG Tab PO SCH (07:49)
[2019-06-10] MEDS: Multivitamin, Stress Formula with Zinc Tab PO SCH (07:49)
[2019-06-10] MEDS: [UNRECOGNIZED DRUG - OTHER] PO SCH (07:50)
[2019-06-10] MEDS: Ferrous Sulfate 325 MG Tab PO SCH (12:57)
[2019-06-10] MEDS: GABAPENTIN 300 MG PO SCH (19:42)
[2019-06-10] MEDS: [UNRECOGNIZED DRUG - OTHER] PO SCH (19:43)
[2019-06-10] MEDS: ROPINIROLE 0.5 MG PO SCH (19:44)
[2019-06-10] MEDS: Melatonin 3 MG Tab PO SCH (19:44)
[2019-06-11] MEDS: Acetaminophen 325 MG Tab PO SCH ×4 (05:29→19:48)
[2019-06-11] MEDS: Omeprazole 20 MG Cap.CR PO SCH (07:52)
[2019-06-11] MEDS: Multivitamin, Stress Formula with Zinc Tab PO SCH (07:52)
[2019-06-11] MEDS: [UNRECOGNIZED DRUG - OTHER] PO SCH (07:52)
[2019-06-11] MEDS: GABAPENTIN 100 MG PO SCH ×2 (07:52→12:35)
[2019-06-11] MEDS: [UNRECOGNIZED DRUG - OTHER] PO SCH (07:52)
[2019-06-11] MEDS: SERTRALINE 100 MG PO SCH (07:52)
[2019-06-11] MEDS: Famotidine 20 MG Tab PO SCH (07:52)
[2019-06-11] MEDS: GABAPENTIN 300 MG PO SCH (19:46)
[2019-06-11] MEDS: [UNRECOGNIZED DRUG - OTHER] PO SCH (19:47)
[2019-06-11] MEDS: ROPINIROLE 0.5 MG PO SCH (19:47)
[2019-06-11] MEDS: Melatonin 3 MG Tab PO SCH (19:48)
[2019-06-12] MEDS: Acetaminophen 325 MG Tab PO SCH ×4 (04:15→20:12)
[2019-06-12] MEDS: [UNRECOGNIZED DRUG - OTHER] PO SCH (09:14)
[2019-06-12] MEDS: GABAPENTIN 100 MG PO SCH ×2 (09:14→14:36)
[2019-06-12] MEDS: [UNRECOGNIZED DRUG - OTHER] PO SCH (09:14)
[2019-06-12] MEDS: SERTRALINE 100 MG PO SCH (09:16)
[2019-06-12] MEDS: Multivitamin, Stress Formula with Zinc Tab PO SCH (09:17)
[2019-06-12] MEDS: Omeprazole 20 MG Cap.CR PO SCH (09:17)
[2019-06-12] MEDS: Famotidine 20 MG Tab PO SCH (09:17)
[2019-06-12] MEDS: Ferrous Sulfate 325 MG Tab PO SCH (14:36)
[2019-06-12] MEDS: GABAPENTIN 300 MG PO SCH (20:10)
[2019-06-12] MEDS: WARFARIN PO SCH (20:11)
[2019-06-12] MEDS: Melatonin 3 MG Tab PO SCH (20:11)
[2019-06-12] MEDS: ROPINIROLE 0.5 MG PO SCH (20:11)
[2019-06-13] MEDS: Acetaminophen 325 MG Tab PO SCH ×4 (05:15→20:33)
[2019-06-13] MEDS: GABAPENTIN 100 MG PO SCH ×2 (07:12→13:00)
[2019-06-13] MEDS: Omeprazole 20 MG Cap.CR PO SCH (07:12)
[2019-06-13] MEDS: Multivitamin, Stress Formula with Zinc Tab PO SCH (07:12)
[2019-06-13] MEDS: Famotidine 20 MG Tab PO SCH (07:12)
[2019-06-13] MEDS: SERTRALINE 100 MG PO SCH (07:13)
[2019-06-13] MEDS: [UNRECOGNIZED DRUG - OTHER] PO SCH (07:13)
[2019-06-13] MEDS: [UNRECOGNIZED DRUG - OTHER] PO SCH (07:13)
[2019-06-13] MEDS: [UNRECOGNIZED DRUG - OTHER] PO SCH (20:29)
[2019-06-13] MEDS: GABAPENTIN 300 MG PO SCH (20:29)
[2019-06-13] MEDS: ROPINIROLE 0.5 MG PO SCH (20:29)
[2019-06-13] MEDS: Melatonin 3 MG Tab PO SCH (20:33)
[2019-06-14] MEDS: Acetaminophen 325 MG Tab PO SCH ×4 (01:49→20:11)
[2019-06-14] MEDS: Omeprazole 20 MG Cap.CR PO SCH (09:06)
[2019-06-14] MEDS: Multivitamin, Stress Formula with Zinc Tab PO SCH (09:07)
[2019-06-14] MEDS: Famotidine 20 MG Tab PO SCH (09:07)
[2019-06-14] MEDS: GABAPENTIN 100 MG PO SCH ×2 (09:08→12:11)
[2019-06-14] MEDS: SERTRALINE 100 MG PO SCH (09:08)
[2019-06-14] MEDS: [UNRECOGNIZED DRUG - OTHER] PO SCH (09:09)
[2019-06-14] MEDS: [UNRECOGNIZED DRUG - OTHER] PO SCH (09:09)
[2019-06-14] MEDS: Ferrous Sulfate 325 MG Tab PO SCH (12:10)
[2019-06-14] MEDS: Melatonin 3 MG Tab PO SCH (20:10)
[2019-06-14] MEDS: [UNRECOGNIZED DRUG - OTHER] PO SCH (20:11)
[2019-06-14] MEDS: GABAPENTIN 300 MG PO SCH (20:12)
[2019-06-14] MEDS: ROPINIROLE 0.5 MG PO SCH (20:12)
[2019-06-15] MEDS: Acetaminophen 325 MG Tab PO SCH ×4 (02:04→20:12)
[2019-06-15] MEDS: GABAPENTIN 100 MG PO SCH ×2 (07:49→12:16)
[2019-06-15] MEDS: [UNRECOGNIZED DRUG - OTHER] PO SCH (07:50)
[2019-06-15] MEDS: SERTRALINE 100 MG PO SCH (07:50)
[2019-06-15] MEDS: Famotidine 20 MG Tab PO SCH (07:50)
[2019-06-15] MEDS: Multivitamin, Stress Formula with Zinc Tab PO SCH (07:50)
[2019-06-15] MEDS: Omeprazole 20 MG Cap.CR PO SCH (07:50)
[2019-06-15] MEDS: [UNRECOGNIZED DRUG - OTHER] PO SCH (07:51)
[2019-06-15] MEDS: Melatonin 3 MG Tab PO SCH (20:12)
[2019-06-15] MEDS: GABAPENTIN 300 MG PO SCH (20:13)
[2019-06-15] MEDS: ROPINIROLE 0.5 MG PO SCH (20:13)
[2019-06-15] MEDS: [UNRECOGNIZED DRUG - OTHER] PO SCH (20:13)
[2019-06-16] MEDS: Acetaminophen 325 MG Tab PO SCH ×4 (01:55→19:55)
[2019-06-16] MEDS: Omeprazole 20 MG Cap.CR PO SCH (07:39)
[2019-06-16] MEDS: Multivitamin, Stress Formula with Zinc Tab PO SCH (07:39)
[2019-06-16] MEDS: Famotidine 20 MG Tab PO SCH (07:39)
[2019-06-16] MEDS: GABAPENTIN 100 MG PO SCH ×2 (07:41→12:08)
[2019-06-16] MEDS: SERTRALINE 100 MG PO SCH (07:41)
[2019-06-16] MEDS: [UNRECOGNIZED DRUG - OTHER] PO SCH (07:41)
[2019-06-16] MEDS: [UNRECOGNIZED DRUG - OTHER] PO SCH (07:42)
[2019-06-16] MEDS: Ferrous Sulfate 325 MG Tab PO SCH (12:07)
[2019-06-16] MEDS: Melatonin 3 MG Tab PO SCH (19:55)
[2019-06-16] MEDS: ROPINIROLE 0.5 MG PO SCH (19:55)
[2019-06-16] MEDS: WARFARIN PO SCH (19:56)
[2019-06-16] MEDS: GABAPENTIN 300 MG PO SCH (19:56)
[2019-06-17] MEDS: Acetaminophen 325 MG Tab PO SCH ×4 (02:07→19:50)
[2019-06-17] MEDS: GABAPENTIN 100 MG PO SCH ×2 (08:30→12:20)
[2019-06-17] MEDS: [UNRECOGNIZED DRUG - OTHER] PO SCH (08:30)
[2019-06-17] MEDS: SERTRALINE 100 MG PO SCH (08:30)
[2019-06-17] MEDS: Multivitamin, Stress Formula with Zinc Tab PO SCH (08:31)
[2019-06-17] MEDS: Famotidine 20 MG Tab PO SCH (08:31)
[2019-06-17] MEDS: Omeprazole 20 MG Cap.CR PO SCH (08:31)
[2019-06-17] MEDS: [UNRECOGNIZED DRUG - OTHER] PO SCH (08:34)
[2019-06-17] MEDS: GABAPENTIN 300 MG PO SCH (19:49)
[2019-06-17] MEDS: [UNRECOGNIZED DRUG - OTHER] PO SCH (19:50)
[2019-06-17] MEDS: ROPINIROLE 0.5 MG PO SCH (19:50)
[2019-06-17] MEDS: Melatonin 3 MG Tab PO SCH (19:50)
[2019-06-18] MEDS: Acetaminophen 325 MG Tab PO SCH ×4 (06:37→19:29)
[2019-06-18] MEDS: GABAPENTIN 100 MG PO SCH ×2 (07:55→14:45)
[2019-06-18] MEDS: Multivitamin, Stress Formula with Zinc Tab PO SCH (07:56)
[2019-06-18] MEDS: Loperamide 2 MG Cap PO PRN (07:56)
[2019-06-18] MEDS: Omeprazole 20 MG Cap.CR PO SCH (07:56)
[2019-06-18] MEDS: Famotidine 20 MG Tab PO SCH (07:56)
[2019-06-18] MEDS: [UNRECOGNIZED DRUG - OTHER] PO SCH (07:57)
[2019-06-18] MEDS: SERTRALINE 100 MG PO SCH (07:57)
[2019-06-18] MEDS: [UNRECOGNIZED DRUG - OTHER] PO SCH (07:57)
[2019-06-18] MEDS: Ferrous Sulfate 325 MG Tab PO SCH (14:46)
[2019-06-18] MEDS: [UNRECOGNIZED DRUG - OTHER] PO SCH (19:28)
[2019-06-18] MEDS: ROPINIROLE 0.5 MG PO SCH (19:28)
[2019-06-18] MEDS: Melatonin 3 MG Tab PO SCH (19:29)
[2019-06-18] MEDS: GABAPENTIN 300 MG PO SCH (19:29)
[2019-06-19] MEDS: Acetaminophen 325 MG Tab PO SCH ×4 (06:52→20:01)
[2019-06-19] MEDS: GABAPENTIN 100 MG PO SCH ×2 (07:21→12:53)
[2019-06-19] MEDS: [UNRECOGNIZED DRUG - OTHER] PO SCH (07:21)
[2019-06-19] MEDS: [UNRECOGNIZED DRUG - OTHER] PO SCH (07:21)
[2019-06-19] MEDS: Multivitamin, Stress Formula with Zinc Tab PO SCH (07:21)
[2019-06-19] MEDS: Omeprazole 20 MG Cap.CR PO SCH (07:21)
[2019-06-19] MEDS: SERTRALINE 100 MG PO SCH (07:21)
[2019-06-19] MEDS: Famotidine 20 MG Tab PO SCH (07:21)
[2019-06-19] MEDS: ROPINIROLE 0.5 MG PO SCH (19:59)
[2019-06-19] MEDS: WARFARIN PO SCH (20:01)
[2019-06-19] MEDS: Melatonin 3 MG Tab PO SCH (20:02)
[2019-06-19] MEDS: GABAPENTIN 300 MG PO SCH (20:03)
[2019-06-20] MEDS: Acetaminophen 325 MG Tab PO SCH ×4 (06:11→19:46)
[2019-06-20] MEDS: Famotidine 20 MG Tab PO SCH (08:43)
[2019-06-20] MEDS: Multivitamin, Stress Formula with Zinc Tab PO SCH (08:43)
[2019-06-20] MEDS: GABAPENTIN 100 MG PO SCH ×2 (08:43→12:42)
[2019-06-20] MEDS: SERTRALINE 100 MG PO SCH (08:43)
[2019-06-20] MEDS: [UNRECOGNIZED DRUG - OTHER] PO SCH (08:43)
[2019-06-20] MEDS: [UNRECOGNIZED DRUG - OTHER] PO SCH (08:43)
[2019-06-20] MEDS: Omeprazole 20 MG Cap.CR PO SCH (08:43)
[2019-06-20] MEDS: Ferrous Sulfate 325 MG Tab PO SCH (12:42)
[2019-06-20] MEDS: GABAPENTIN 300 MG PO SCH (19:45)
[2019-06-20] MEDS: Melatonin 3 MG Tab PO SCH (19:46)
[2019-06-20] MEDS: ROPINIROLE 0.5 MG PO SCH (19:46)
[2019-06-20] MEDS: [UNRECOGNIZED DRUG - OTHER] PO SCH (19:47)
[2019-06-21] MEDS: Acetaminophen 325 MG Tab PO SCH ×4 (06:11→19:26)
[2019-06-21] MEDS: Multivitamin, Stress Formula with Zinc Tab PO SCH (07:35)
[2019-06-21] MEDS: Omeprazole 20 MG Cap.CR PO SCH (07:35)
[2019-06-21] MEDS: Famotidine 20 MG Tab PO SCH (07:36)
[2019-06-21] MEDS: [UNRECOGNIZED DRUG - OTHER] PO SCH (07:37)
[2019-06-21] MEDS: SERTRALINE 100 MG PO SCH (07:37)
[2019-06-21] MEDS: GABAPENTIN 100 MG PO SCH ×2 (07:37→12:11)
[2019-06-21] MEDS: [UNRECOGNIZED DRUG - OTHER] PO SCH (07:38)
[2019-06-21] MEDS: GABAPENTIN 300 MG PO SCH (19:26)
[2019-06-21] MEDS: [UNRECOGNIZED DRUG - OTHER] PO SCH (19:27)
[2019-06-21] MEDS: Melatonin 3 MG Tab PO SCH (19:27)
[2019-06-21] MEDS: ROPINIROLE 0.5 MG PO SCH (19:28)
[2019-06-22] MEDS: Acetaminophen 325 MG Tab PO SCH ×4 (06:24→19:41)
[2019-06-22] MEDS: Multivitamin, Stress Formula with Zinc Tab PO SCH (07:42)
[2019-06-22] MEDS: Omeprazole 20 MG Cap.CR PO SCH (07:42)
[2019-06-22] MEDS: Famotidine 20 MG Tab PO SCH (07:42)
[2019-06-22] MEDS: [UNRECOGNIZED DRUG - OTHER] PO SCH (07:43)
[2019-06-22] MEDS: GABAPENTIN 100 MG PO SCH ×2 (07:43→12:29)
[2019-06-22] MEDS: SERTRALINE 100 MG PO SCH (07:43)
[2019-06-22] MEDS: [UNRECOGNIZED DRUG - OTHER] PO SCH (07:45)
[2019-06-22] MEDS: Ferrous Sulfate 325 MG Tab PO SCH (12:28)
[2019-06-22] MEDS: GABAPENTIN 300 MG PO SCH (19:39)
[2019-06-22] MEDS: [UNRECOGNIZED DRUG - OTHER] PO SCH (19:41)
[2019-06-22] MEDS: ROPINIROLE 0.5 MG PO SCH (19:42)
[2019-06-22] MEDS: Melatonin 3 MG Tab PO SCH (19:45)
[2019-06-23] MEDS: Acetaminophen 325 MG Tab PO SCH ×4 (04:59→21:00)
[2019-06-23] MEDS: Famotidine 20 MG Tab PO SCH (07:20)
[2019-06-23] MEDS: Omeprazole 20 MG Cap.CR PO SCH (07:20)
[2019-06-23] MEDS: Multivitamin, Stress Formula with Zinc Tab PO SCH (07:20)
[2019-06-23] MEDS: GABAPENTIN 100 MG PO SCH ×2 (07:21→11:59)
[2019-06-23] MEDS: [UNRECOGNIZED DRUG - OTHER] PO SCH (07:21)
[2019-06-23] MEDS: SERTRALINE 100 MG PO SCH (07:21)
[2019-06-23] MEDS: [UNRECOGNIZED DRUG - OTHER] PO SCH (07:21)
[2019-06-23] MEDS: ROPINIROLE 0.5 MG PO SCH (21:00)
[2019-06-23] MEDS: WARFARIN PO SCH (21:00)
[2019-06-23] MEDS: GABAPENTIN 300 MG PO SCH (21:00)
[2019-06-23] MEDS: Melatonin 3 MG Tab PO SCH (21:00)
[2019-06-24] MEDS: Acetaminophen 325 MG Tab PO SCH ×4 (05:24→20:53)
[2019-06-24] MEDS: SERTRALINE 100 MG PO SCH (08:06)
[2019-06-24] MEDS: Famotidine 20 MG Tab PO SCH (08:06)
[2019-06-24] MEDS: Omeprazole 20 MG Cap.CR PO SCH (08:06)
[2019-06-24] MEDS: GABAPENTIN 100 MG PO SCH ×2 (08:06→12:28)
[2019-06-24] MEDS: [UNRECOGNIZED DRUG - OTHER] PO SCH (08:06)
[2019-06-24] MEDS: Multivitamin, Stress Formula with Zinc Tab PO SCH (08:06)
[2019-06-24] MEDS: [UNRECOGNIZED DRUG - OTHER] PO SCH (08:06)
[2019-06-24] MEDS: Ferrous Sulfate 325 MG Tab PO SCH (12:28)
[2019-06-24] MEDS: GABAPENTIN 300 MG PO SCH (20:50)
[2019-06-24] MEDS: ROPINIROLE 0.5 MG PO SCH (20:51)
[2019-06-24] MEDS: [UNRECOGNIZED DRUG - OTHER] PO SCH (20:51)
[2019-06-24] MEDS: Melatonin 3 MG Tab PO SCH (20:52)
[2019-06-25] MEDS: Acetaminophen 325 MG Tab PO SCH ×4 (05:21→19:21)
[2019-06-25] MEDS: Multivitamin, Stress Formula with Zinc Tab PO SCH (08:18)
[2019-06-25] MEDS: SERTRALINE 100 MG PO SCH (08:18)
[2019-06-25] MEDS: [UNRECOGNIZED DRUG - OTHER] PO SCH (08:18)
[2019-06-25] MEDS: GABAPENTIN 100 MG PO SCH ×2 (08:18→13:17)
[2019-06-25] MEDS: Famotidine 20 MG Tab PO SCH (08:18)
[2019-06-25] MEDS: Omeprazole 20 MG Cap.CR PO SCH (08:18)
[2019-06-25] MEDS: [UNRECOGNIZED DRUG - OTHER] PO SCH (08:18)
[2019-06-25] MEDS: GABAPENTIN 300 MG PO SCH (19:21)
[2019-06-25] MEDS: ROPINIROLE 0.5 MG PO SCH (19:22)
[2019-06-25] MEDS: Melatonin 3 MG Tab PO SCH (19:22)
[2019-06-25] MEDS: [UNRECOGNIZED DRUG - OTHER] PO SCH (19:22)
[2019-06-26] MEDS: Acetaminophen 325 MG Tab PO SCH ×4 (05:45→19:07)
[2019-06-26] MEDS: Multivitamin, Stress Formula with Zinc Tab PO SCH (08:31)
[2019-06-26] MEDS: Famotidine 20 MG Tab PO SCH (08:31)
[2019-06-26] MEDS: Omeprazole 20 MG Cap.CR PO SCH (08:31)
[2019-06-26] MEDS: [UNRECOGNIZED DRUG - OTHER] PO SCH (08:33)
[2019-06-26] MEDS: GABAPENTIN 100 MG PO SCH ×2 (08:33→12:01)
[2019-06-26] MEDS: [UNRECOGNIZED DRUG - OTHER] PO SCH (08:34)
[2019-06-26] MEDS: SERTRALINE 100 MG PO SCH (08:34)
[2019-06-26] MEDS: Ferrous Sulfate 325 MG Tab PO SCH (12:00)
[2019-06-26] MEDS: GABAPENTIN 300 MG PO SCH (19:06)
[2019-06-26] MEDS: WARFARIN PO SCH (19:07)
[2019-06-26] MEDS: ROPINIROLE 0.5 MG PO SCH (19:07)
[2019-06-26] MEDS: Melatonin 3 MG Tab PO SCH (19:08)
[2019-06-27] MEDS: Acetaminophen 325 MG Tab PO SCH ×4 (03:46→20:03)
[2019-06-27] MEDS: Multivitamin, Stress Formula with Zinc Tab PO SCH (08:15)
[2019-06-27] MEDS: SERTRALINE 100 MG PO SCH (08:16)
[2019-06-27] MEDS: Omeprazole 20 MG Cap.CR PO SCH (08:16)
[2019-06-27] MEDS: [UNRECOGNIZED DRUG - OTHER] PO SCH (08:16)
[2019-06-27] MEDS: GABAPENTIN 100 MG PO SCH ×2 (08:16→12:52)
[2019-06-27] MEDS: Famotidine 20 MG Tab PO SCH (08:16)
[2019-06-27] MEDS: [UNRECOGNIZED DRUG - OTHER] PO SCH (08:17)
[2019-06-27] MEDS: GABAPENTIN 300 MG PO SCH (20:02)
[2019-06-27] MEDS: Melatonin 3 MG Tab PO SCH (20:03)
[2019-06-27] MEDS: [UNRECOGNIZED DRUG - OTHER] PO SCH (20:04)
[2019-06-27] MEDS: ROPINIROLE 0.5 MG PO SCH (20:04)
[2019-06-28] MEDS: Acetaminophen 325 MG Tab PO SCH ×4 (03:32→21:31)
[2019-06-28] MEDS: [UNRECOGNIZED DRUG - OTHER] PO SCH (08:03)
[2019-06-28] MEDS: [UNRECOGNIZED DRUG - OTHER] PO SCH (08:03)
[2019-06-28] MEDS: SERTRALINE 100 MG PO SCH (08:03)
[2019-06-28] MEDS: Famotidine 20 MG Tab PO SCH (08:04)
[2019-06-28] MEDS: GABAPENTIN 100 MG PO SCH ×2 (08:05→12:00)
[2019-06-28] MEDS: Multivitamin, Stress Formula with Zinc Tab PO SCH (08:05)
[2019-06-28] MEDS: Omeprazole 20 MG Cap.CR PO SCH (08:05)
[2019-06-28] MEDS: Calcium Carbonate 750 MG Tab.Chew PO PRN (11:53)
[2019-06-28] MEDS: Ferrous Sulfate 325 MG Tab PO SCH (11:55)
[2019-06-28] MEDS: [UNRECOGNIZED DRUG - OTHER] PO SCH (21:28)
[2019-06-28] MEDS: GABAPENTIN 300 MG PO SCH (21:29)
[2019-06-28] MEDS: ROPINIROLE 0.5 MG PO SCH (21:29)
[2019-06-28] MEDS: Melatonin 3 MG Tab PO SCH (21:31)
[2019-06-29] MEDS: Acetaminophen 325 MG Tab PO SCH ×4 (04:58→19:39)
[2019-06-29] MEDS: GABAPENTIN 100 MG PO SCH ×2 (09:33→12:45)
[2019-06-29] MEDS: [UNRECOGNIZED DRUG - OTHER] PO SCH (09:35)
[2019-06-29] MEDS: [UNRECOGNIZED DRUG - OTHER] PO SCH (09:35)
[2019-06-29] MEDS: Famotidine 20 MG Tab PO SCH (09:35)
[2019-06-29] MEDS: Multivitamin, Stress Formula with Zinc Tab PO SCH (09:35)
[2019-06-29] MEDS: SERTRALINE 100 MG PO SCH (09:35)
[2019-06-29] MEDS: Calcium Carbonate 750 MG Tab.Chew PO PRN ×2 (09:36→12:44)
[2019-06-29] MEDS: Omeprazole 20 MG Cap.CR PO SCH (09:40)
[2019-06-29] MEDS: Loperamide 2 MG Cap PO PRN (12:50)
[2019-06-29] MEDS: GABAPENTIN 300 MG PO SCH (19:37)
[2019-06-29] MEDS: [UNRECOGNIZED DRUG - OTHER] PO SCH (19:38)
[2019-06-29] MEDS: ROPINIROLE 0.5 MG PO SCH (19:38)
[2019-06-29] MEDS: Melatonin 3 MG Tab PO SCH (19:38)
[2019-06-30] MEDS: Acetaminophen 325 MG Tab PO SCH ×4 (03:10→19:36)
[2019-06-30] MEDS: GABAPENTIN 100 MG PO SCH ×2 (08:25→12:37)
[2019-06-30] MEDS: SERTRALINE 100 MG PO SCH (08:26)
[2019-06-30] MEDS: Multivitamin, Stress Formula with Zinc Tab PO SCH (08:26)
[2019-06-30] MEDS: Omeprazole 20 MG Cap.CR PO SCH (08:26)
[2019-06-30] MEDS: [UNRECOGNIZED DRUG - OTHER] PO SCH (08:26)
[2019-06-30] MEDS: Famotidine 20 MG Tab PO SCH (08:26)
[2019-06-30] MEDS: [UNRECOGNIZED DRUG - OTHER] PO SCH (08:27)
[2019-06-30] MEDS: Ferrous Sulfate 325 MG Tab PO SCH (12:37)
[2019-06-30] MEDS: GABAPENTIN 300 MG PO SCH (19:35)
[2019-06-30] MEDS: ROPINIROLE 0.5 MG PO SCH (19:36)
[2019-06-30] MEDS: Melatonin 3 MG Tab PO SCH (19:36)
[2019-06-30] MEDS: WARFARIN PO SCH (19:37)
[2019-07-01] MEDS: Acetaminophen 325 MG Tab PO SCH ×4 (05:27→19:14)
[2019-07-01] MEDS: [UNRECOGNIZED DRUG - OTHER] PO SCH (09:03)
[2019-07-01] MEDS: [UNRECOGNIZED DRUG - OTHER] PO SCH (09:03)
[2019-07-01] MEDS: SERTRALINE 100 MG PO SCH (09:03)
[2019-07-01] MEDS: Omeprazole 20 MG Cap.CR PO SCH (09:04)
[2019-07-01] MEDS: GABAPENTIN 100 MG PO SCH ×2 (09:04→12:14)
[2019-07-01] MEDS: Famotidine 20 MG Tab PO SCH (09:04)
[2019-07-01] MEDS: Multivitamin, Stress Formula with Zinc Tab PO SCH (09:05)
[2019-07-01] MEDS: GABAPENTIN 300 MG PO SCH (19:13)
[2019-07-01] MEDS: [UNRECOGNIZED DRUG - OTHER] PO SCH (19:14)
[2019-07-01] MEDS: ROPINIROLE 0.5 MG PO SCH (19:14)
[2019-07-01] MEDS: Melatonin 3 MG Tab PO SCH (19:15)
[2019-07-02] MEDS: Acetaminophen 325 MG Tab PO SCH ×4 (04:37→19:19)
[2019-07-02] MEDS: Multivitamin, Stress Formula with Zinc Tab PO SCH (08:28)
[2019-07-02] MEDS: GABAPENTIN 100 MG PO SCH ×2 (08:28→14:13)
[2019-07-02] MEDS: [UNRECOGNIZED DRUG - OTHER] PO SCH (08:29)
[2019-07-02] MEDS: Omeprazole 20 MG Cap.CR PO SCH (08:29)
[2019-07-02] MEDS: Famotidine 20 MG Tab PO SCH (08:29)
[2019-07-02] MEDS: [UNRECOGNIZED DRUG - OTHER] PO SCH (08:31)
[2019-07-02] MEDS: SERTRALINE 100 MG PO SCH (09:09)
[2019-07-02 10:15] LABS: ANION GAP 10.2 mmol/L (10-20)
--- NOTE | 2019-07-02 13:57 | PCM.PN ---
- General Info Date of Service: 07/02/19 Admission Dx/Problem (Free Text): Subjective: Interim long-term care note. No changes in health status. 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 Mood is stable on antidepressant. Eating and stooling normally. No gross cognitive defects. Objective: Vital signs remain normal. Her weight is unchanged. Alert oriented smiling no distress. Heart and lungs are clear abdomen soft nontender extremities warm well perfused without edema or tenderness. Assessment and plan: Doing well. Anticoagulated for history of DVT, mood stable on antidepressant, blood pressures controlled, gabapentin for history of neuropathy. Subjective Update: Subjective: Sixty-day long-term care visit. She doing pretty well. Nursing notes frequent heartburn, she's on dual H2 PPI therapy. Still has to take occasional Tums. No dysphasia. Her mild anemia is stable to improved. Denies any melena or hematochezia. She has some mild clinical heart failure, her edema and weight have improved on their own. She does get some dyspnea with exertion. CT chest showed what looks like a mediastinal thyroid mass. Going back this was present decades ago. Incidental 1.5 cm breast mass seen by CT. She is otherwise pretty happy on the floor staying busy reading books etc. Objective: Vital signs are stable. She has nodular lesion with scab about 3 mm in diameter at right lower lid just below lid/lash margin. She feels this is new past couple weeks. Heart and lungs clear to auscultation abdomen soft nontender extremities warm well perfused 1+ edema. Assessment and plan: Chronic dyspnea. Heart failure appears stable, weight is improved. Monitor. She uses oxygen when necessary. 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 Unless she became grossly symptomatic with this thoracotomy would not be recommended at her age and medical condition. Still has some issues with heartburn, can use Tums up to four times daily PRN, okay to continue H2 PPI therapy. Again at her age would not pursue further workup for this unless anemia becoming grossly worse to the point requiring transfusion etc. 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 I would recommend excision of this before it became more invasive. It approaches the lashes and lid margin but is just below it, I think general surgeon here can probably remove this in the clinic, we'll refer outpatient them. Presumption would be that the incidental right breast lesion by CT is indolent If visited with surgeon could discuss with them whether she and they thought mammogram or excision biopsy would be indicated. - Patient Data Vitals - Most Recent: Last Vital Signs Temp 36.1 C 06/27/19 08:00 Pulse 85 07/02/19 08:31 Resp 16 06/27/19 08:00 BP 121/54 L 07/02/19 08:31 Pulse Ox 92 L 06/30/19 10:31 Weight - Most Recent: 85.321 kg I&O - Last 24 Hours: Intake & Output 07/01/19 07/02/19 07/02/19 22:59 06:59 14:59 Intake Total 200 240 Balance 200 240 Lab Results Last 24 Hours: Laboratory Results - last 24 hr 07/02/19 07/02/19 07/02/19 Range/Units 09:50 09:50 09:50 WBC 9.2 (4.0-10.0) x10^3/uL RBC 4.04 (4.00-5.50) x10^6/uL Hgb 11.1 L (12.0-16.0) g/dL Hct 37.3 (33.0-47.0) % MCV 92.3 (78.0-93.0) fL MCH 27.5 (26.0-32.0) pg MCHC 29.8 L (32.0-36.0) g/dL RDW Coeff of [place]iffanie 18.7 H (10.0-15.0) % Plt Count 203 (130-400) x10^3/uL Neut % (Auto) 45.1 L (50.0-80.0) % Lymph % (Auto) 46.4 (25.0-50.0) % [place] % (Auto) 5.7 (2.0-11.0) % Eos % (Auto) 2.1 (0.0-4.0) % Baso % (Auto) 0.7 (0.2-1.2) % Sodium 148 H (136-145) mmol/L Potassium 4.2 (3.5-5.1) mmol/L Chloride 109 H (98-107) mmol/L Carbon Dioxide 33 H (21-32) mmol/L Anion Gap 10.2 (10-20) mmol/L BUN 15 (7-18) mg/dL Creatinine 1.1 H (0.55-1.02) mg/dL Est Cr Clr Drug Dosing 32.29 mL/min Estimated GFR (MDRD) 47 Glucose 122 H (74-106) mg/dL Calcium 8.4 L (8.5-10.1) mg/dL Ferritin 23 (8-252) ng/mL Med Orders - Current: Current Medications Acetaminophen (Tylenol) 650 mg PO 0200,0800,1300,2000 [facility] Last Admin: 07/02/19 08:28 Dose: 650 mg Calcium Carbonate/Glycine (Tums Extra Strength) 750 mg PO TID PRN PRN Reason: Dyspepsia Last Admin: 06/29/19 12:44 Dose: 750 mg Docusate Sodium (Colace) 100 mg PO DAILY PRN PRN Reason: Constipation Famotidine (Pepcid) 20 mg PO DAILY [facility] Last Admin: 07/02/19 08:29 Dose: 20 mg Ferrous Sulfate (Ferrous Sulfate) 325 mg PO Q48H [facility] Last Admin: 06/30/19 12:37 Dose: 325 mg Furosemide (Lasix) 20 mg PO DAILY [facility] Last Admin: 07/02/19 08:29 Dose: 20 mg Gabapentin (Neurontin) 100 mg PO BID@0800,1300 [facility] Last Admin: 07/02/19 08:28 Dose: 100 mg Gabapentin (Neurontin) 300 mg PO BEDTIME [facility] Last Admin: 07/01/19 19:13 Dose: 300 mg Loperamide HCl (Imodium) 2 mg PO Q12H PRN PRN Reason: Diarrhea Last Admin: 06/29/19 12:50 Dose: 2 mg Melatonin (Melatonin) 6 mg PO BEDTIME [facility] Last Admin: 07/01/19 19:15 Dose: 6 mg Metoprolol Succinate (Toprol Xl) 25 mg PO DAILY [facility] Last Admin: 07/02/19 08:31 Dose: 25 mg Miconazole (Desenex 2%) 0 gm TOP BID PRN PRN Reason: Rash Last Admin: 03/29/19 08:43 Dose: 1 applic Nitroglycerin (Nitrostat) 0.4 mg SL Q5M PRN PRN Reason: Chest Pain Last Admin: 03/24/19 18:01 Dose: 0.4 mg Omeprazole (Omeprazole) 20 mg PO DAILY [facility] Last Admin: 07/02/19 08:29 Dose: 20 mg Polyethylene Glycol (Miralax) 17 gm PO DAILY PRN PRN Reason: Constipation Ropinirole HCl (Requip) 0.5 mg PO BEDTIME [facility] Last Admin: 07/01/19 19:14 Dose: 0.5 mg Senna/Docusate Sodium (Senna Plus) 1 tab PO DAILY PRN PRN Reason: Constipation Sertraline HCl (Zoloft) 100 mg PO DAILY [facility] Last Admin: 07/02/19 09:09 Dose: 100 mg Vitamin B Complex/Vit C/Vit E/Zinc (Stress Formula With Zinc) 1 tab PO DAILY [facility] Last Admin: 07/02/19 08:28 Dose: 1 tab Warfarin Sodium (Coumadin) 2.5 mg PO MoTh@1999 [facility] Last Admin: 06/30/19 19:37 Dose: 2.5 mg Warfarin Sodium (Coumadin) 5 mg PO SuTuWeFrSa@1999 [facility] Last Admin: 07/01/19 19:14 Dose: 5 mg Discontinued Medications Furosemide (Lasix) 20 mg PO DAILY [facility] Last Admin: 02/04/19 08:18 Dose: 20 mg Gabapentin (Neurontin) 100 mg PO BID@0800,1300 [facility] Last Admin: 02/04/19 13:48 Dose: 100 mg Influenza Virus Vaccine (Fluzone High-Dose 2019- Syringe) 180 mcg IM .ONCE ONE Stop: 02/11/19 14:01 Last Admin: 02/11/19 13:57 Dose: 180 mcg Iopamidol (Isovue-300 (61%)) 100 ml IVPUSH ONETIME ONE Stop: 05/08/19 15:19 Last Admin: 05/08/19 16:33 Dose: 100 ml Miconazole (Desenex 2%) 1 gm TOP BID [facility] Last Admin: 03/26/19 09:20 Dose: Not Given Nitrofurantoin Macrocrystals (Macrobid) 100 mg PO BID [facility] Stop: 03/08/19 20:00 Last Admin: 03/04/19 07:54 Dose: 100 mg Nitrofurantoin Macrocrystals (Macrobid) 100 mg PO BID [facility] Stop: 03/08/19 20:01 Last Admin: 03/08/19 20:34 Dose: 100 mg Own Supply: Warfarin 2.5mg (1/2 Of 5mg Tab) 0 mg PO MoTh@1999 [facility] Last Admin: 02/03/19 19:37 Dose: 2.5 mg Own Supply: Warfarin (. 5mg) 0 mg PO SuTuWeFrSa@1999 [facility] Last Admin: 02/02/19 19:43 Dose: 5 mg Own Supply: (Gabapentin. 300mg) 0 mg PO BEDTIME [facility] Last Admin: 02/03/19 19:36 Dose: 300 mg Own Supply: (Metoprolol.Er 25mg) 0 mg PO DAILY [facility] Last Admin: 02/04/19 08:17 Dose: 25 mg Polyethylene Glycol (Miralax) 17 gm PO DAILY [facility] Last Admin: 12/18/18 08:17 Dose: Not Given Ropinirole HCl (Requip) 0.5 mg PO BEDTIME [facility] Last Admin: 02/03/19 19:37 Dose: 0.5 mg Sepsis Event Note - Evaluation Sepsis Screening Result: No Definite Risk - Focused Exam Vital Signs: Vital Signs Pulse BP 07/02/19 08:31 85 121/54 L Date Exam was Performed: 07/02/19 Time Exam was Performed: 13:48 - Problem List Review Problem List Initiated/Reviewed/Updated: Yes - My Orders Last 24 Hours: My Active Orders 07/25/19 07:00 INR,PT,PROTHROMBIN TIME [COAG] Q28D 08/22/19 07:00 INR,PT,PROTHROMBIN TIME [COAG] Q28D 09/19/19 07:00 INR,PT,PROTHROMBIN TIME [COAG] Q28D 10/17/19 07:00 INR,PT,PROTHROMBIN TIME [COAG] Q28D 11/14/19 07:00 INR,PT,PROTHROMBIN TIME [COAG] Q28D 12/12/19 07:00 INR,PT,PROTHROMBIN TIME [COAG] Q28D 01/09/20 07:00 INR,PT,PROTHROMBIN TIME [COAG] Q28D 02/06/20 07:00 INR,PT,PROTHROMBIN TIME [COAG] Q28D 03/05/20 07:00 INR,PT,PROTHROMBIN TIME [COAG] Q28D
[2019-07-02] MEDS: Ferrous Sulfate 325 MG Tab PO SCH (14:13)
[2019-07-02] MEDS: GABAPENTIN 300 MG PO SCH (19:18)
[2019-07-02] MEDS: ROPINIROLE 0.5 MG PO SCH (19:19)
[2019-07-02] MEDS: Melatonin 3 MG Tab PO SCH (19:19)
[2019-07-02] MEDS: [UNRECOGNIZED DRUG - OTHER] PO SCH (19:19)
[2019-07-03] MEDS: Acetaminophen 325 MG Tab PO SCH ×4 (02:51→19:32)
[2019-07-03] MEDS: SERTRALINE 100 MG PO SCH (07:36)
[2019-07-03] MEDS: [UNRECOGNIZED DRUG - OTHER] PO SCH (07:36)
[2019-07-03] MEDS: GABAPENTIN 100 MG PO SCH ×2 (07:36→13:01)
[2019-07-03] MEDS: [UNRECOGNIZED DRUG - OTHER] PO SCH (07:36)
[2019-07-03] MEDS: Famotidine 20 MG Tab PO SCH (07:37)
[2019-07-03] MEDS: Multivitamin, Stress Formula with Zinc Tab PO SCH (07:37)
[2019-07-03] MEDS: Omeprazole 20 MG Cap.CR PO SCH (07:37)
[2019-07-03] MEDS: ROPINIROLE 0.5 MG PO SCH (19:31)
[2019-07-03] MEDS: GABAPENTIN 300 MG PO SCH (19:31)
[2019-07-03] MEDS: WARFARIN PO SCH (19:31)
[2019-07-03] MEDS: Melatonin 3 MG Tab PO SCH (19:32)
[2019-07-04] MEDS: Acetaminophen 325 MG Tab PO SCH ×4 (05:51→20:15)
[2019-07-04] MEDS: [UNRECOGNIZED DRUG - OTHER] PO SCH (07:36)
[2019-07-04] MEDS: GABAPENTIN 100 MG PO SCH ×2 (07:37→13:01)
[2019-07-04] MEDS: Omeprazole 20 MG Cap.CR PO SCH (07:38)
[2019-07-04] MEDS: Multivitamin, Stress Formula with Zinc Tab PO SCH (07:38)
[2019-07-04] MEDS: [UNRECOGNIZED DRUG - OTHER] PO SCH (07:38)
[2019-07-04] MEDS: Famotidine 20 MG Tab PO SCH (07:38)
[2019-07-04] MEDS: SERTRALINE 100 MG PO SCH (07:43)
[2019-07-04] MEDS: Ferrous Sulfate 325 MG Tab PO SCH (13:00)
[2019-07-04] MEDS: [UNRECOGNIZED DRUG - OTHER] PO SCH (20:14)
[2019-07-04] MEDS: ROPINIROLE 0.5 MG PO SCH (20:14)
[2019-07-04] MEDS: GABAPENTIN 300 MG PO SCH (20:14)
[2019-07-04] MEDS: Melatonin 3 MG Tab PO SCH (20:15)
[2019-07-05] MEDS: Acetaminophen 325 MG Tab PO SCH ×4 (06:36→19:56)
[2019-07-05] MEDS: [UNRECOGNIZED DRUG - OTHER] PO SCH (07:55)
[2019-07-05] MEDS: SERTRALINE 100 MG PO SCH (07:55)
[2019-07-05] MEDS: [UNRECOGNIZED DRUG - OTHER] PO SCH (07:55)
[2019-07-05] MEDS: Omeprazole 20 MG Cap.CR PO SCH (07:56)
[2019-07-05] MEDS: Multivitamin, Stress Formula with Zinc Tab PO SCH (07:56)
[2019-07-05] MEDS: Famotidine 20 MG Tab PO SCH (07:56)
[2019-07-05] MEDS: GABAPENTIN 100 MG PO SCH ×2 (07:56→13:16)
[2019-07-05] MEDS: ROPINIROLE 0.5 MG PO SCH (19:55)
[2019-07-05] MEDS: [UNRECOGNIZED DRUG - OTHER] PO SCH (19:55)
[2019-07-05] MEDS: GABAPENTIN 300 MG PO SCH (19:55)
[2019-07-05] MEDS: Melatonin 3 MG Tab PO SCH (19:56)
[2019-07-06] MEDS: Acetaminophen 325 MG Tab PO SCH ×5 (05:36→21:26)
[2019-07-06] MEDS: Famotidine 20 MG Tab PO SCH (07:57)
[2019-07-06] MEDS: Multivitamin, Stress Formula with Zinc Tab PO SCH (07:57)
[2019-07-06] MEDS: Omeprazole 20 MG Cap.CR PO SCH (07:57)
[2019-07-06] MEDS: [UNRECOGNIZED DRUG - OTHER] PO SCH (07:58)
[2019-07-06] MEDS: GABAPENTIN 100 MG PO SCH ×3 (07:58→12:54)
[2019-07-06] MEDS: [UNRECOGNIZED DRUG - OTHER] PO SCH (07:58)
[2019-07-06] MEDS: SERTRALINE 100 MG PO SCH (08:00)
[2019-07-06] MEDS: Ferrous Sulfate 325 MG Tab PO SCH (11:29)
[2019-07-06] MEDS: Melatonin 3 MG Tab PO SCH (21:27)
[2019-07-06] MEDS: [UNRECOGNIZED DRUG - OTHER] PO SCH (21:27)
[2019-07-06] MEDS: ROPINIROLE 0.5 MG PO SCH (21:28)
[2019-07-06] MEDS: GABAPENTIN 300 MG PO SCH (21:29)
[2019-07-06] MEDS: Calcium Carbonate 750 MG Tab.Chew PO PRN (21:34)
[2019-07-07] MEDS: Acetaminophen 325 MG Tab PO SCH ×4 (03:15→19:55)
[2019-07-07] MEDS: Omeprazole 20 MG Cap.CR PO SCH (08:51)
[2019-07-07] MEDS: Famotidine 20 MG Tab PO SCH (08:51)
[2019-07-07] MEDS: [UNRECOGNIZED DRUG - OTHER] PO SCH (08:52)
[2019-07-07] MEDS: [UNRECOGNIZED DRUG - OTHER] PO SCH (08:52)
[2019-07-07] MEDS: SERTRALINE 100 MG PO SCH (08:52)
[2019-07-07] MEDS: Multivitamin, Stress Formula with Zinc Tab PO SCH (08:52)
[2019-07-07] MEDS: GABAPENTIN 100 MG PO SCH ×2 (08:52→13:57)
[2019-07-07] MEDS: Calcium Carbonate 750 MG Tab.Chew PO PRN (17:45)
[2019-07-07] MEDS: GABAPENTIN 300 MG PO SCH (19:54)
[2019-07-07] MEDS: ROPINIROLE 0.5 MG PO SCH (19:54)
[2019-07-07] MEDS: Melatonin 3 MG Tab PO SCH (19:55)
[2019-07-07] MEDS: WARFARIN PO SCH (19:55)
[2019-07-08] MEDS: Acetaminophen 325 MG Tab PO SCH ×4 (05:46→19:42)
[2019-07-08] MEDS: Multivitamin, Stress Formula with Zinc Tab PO SCH (08:33)
[2019-07-08] MEDS: Famotidine 20 MG Tab PO SCH (08:33)
[2019-07-08] MEDS: Omeprazole 20 MG Cap.CR PO SCH (08:33)
[2019-07-08] MEDS: GABAPENTIN 100 MG PO SCH ×2 (08:33→12:19)
[2019-07-08] MEDS: SERTRALINE 100 MG PO SCH (08:34)
[2019-07-08] MEDS: [UNRECOGNIZED DRUG - OTHER] PO SCH (08:34)
[2019-07-08] MEDS: [UNRECOGNIZED DRUG - OTHER] PO SCH (08:34)
[2019-07-08] MEDS: Ferrous Sulfate 325 MG Tab PO SCH (12:18)
[2019-07-08] MEDS: GABAPENTIN 300 MG PO SCH (19:40)
[2019-07-08] MEDS: ROPINIROLE 0.5 MG PO SCH (19:41)
[2019-07-08] MEDS: [UNRECOGNIZED DRUG - OTHER] PO SCH (19:41)
[2019-07-08] MEDS: Melatonin 3 MG Tab PO SCH (19:42)
[2019-07-09] MEDS: Acetaminophen 325 MG Tab PO SCH ×4 (05:44→20:01)
[2019-07-09] MEDS: Famotidine 20 MG Tab PO SCH (08:30)
[2019-07-09] MEDS: Multivitamin, Stress Formula with Zinc Tab PO SCH (08:30)
[2019-07-09] MEDS: Omeprazole 20 MG Cap.CR PO SCH (08:30)
[2019-07-09] MEDS: Loperamide 2 MG Cap PO PRN (08:30)
[2019-07-09] MEDS: [UNRECOGNIZED DRUG - OTHER] PO SCH (08:30)
[2019-07-09] MEDS: [UNRECOGNIZED DRUG - OTHER] PO SCH (08:31)
[2019-07-09] MEDS: GABAPENTIN 100 MG PO SCH ×2 (08:32→13:48)
[2019-07-09] MEDS: SERTRALINE 100 MG PO SCH (08:32)
[2019-07-09] MEDS: GABAPENTIN 300 MG PO SCH (20:00)
[2019-07-09] MEDS: ROPINIROLE 0.5 MG PO SCH (20:01)
[2019-07-09] MEDS: Melatonin 3 MG Tab PO SCH (20:01)
[2019-07-09] MEDS: [UNRECOGNIZED DRUG - OTHER] PO SCH (20:01)
[2019-07-10] MEDS: Acetaminophen 325 MG Tab PO SCH ×4 (06:29→20:33)
[2019-07-10] MEDS: Omeprazole 20 MG Cap.CR PO SCH (07:53)
[2019-07-10] MEDS: Multivitamin, Stress Formula with Zinc Tab PO SCH (07:53)
[2019-07-10] MEDS: Famotidine 20 MG Tab PO SCH (07:53)
[2019-07-10] MEDS: GABAPENTIN 100 MG PO SCH ×2 (07:53→12:13)
[2019-07-10] MEDS: [UNRECOGNIZED DRUG - OTHER] PO SCH (07:53)
[2019-07-10] MEDS: SERTRALINE 100 MG PO SCH (07:54)
[2019-07-10] MEDS: [UNRECOGNIZED DRUG - OTHER] PO SCH (07:56)
[2019-07-10] MEDS: Ferrous Sulfate 325 MG Tab PO SCH (12:15)
[2019-07-10] MEDS: GABAPENTIN 300 MG PO SCH (20:26)
[2019-07-10] MEDS: WARFARIN PO SCH (20:27)
[2019-07-10] MEDS: ROPINIROLE 0.5 MG PO SCH (20:27)
[2019-07-10] MEDS: Melatonin 3 MG Tab PO SCH (20:32)
[2019-07-11] MEDS: Acetaminophen 325 MG Tab PO SCH ×4 (02:17→19:50)
[2019-07-11] MEDS: Omeprazole 20 MG Cap.CR PO SCH (08:11)
[2019-07-11] MEDS: GABAPENTIN 100 MG PO SCH ×2 (08:11→12:34)
[2019-07-11] MEDS: Famotidine 20 MG Tab PO SCH (08:11)
[2019-07-11] MEDS: SERTRALINE 100 MG PO SCH (08:12)
[2019-07-11] MEDS: Multivitamin, Stress Formula with Zinc Tab PO SCH (08:12)
[2019-07-11] MEDS: [UNRECOGNIZED DRUG - OTHER] PO SCH (08:12)
[2019-07-11] MEDS: [UNRECOGNIZED DRUG - OTHER] PO SCH (08:15)
[2019-07-11] MEDS: ROPINIROLE 0.5 MG PO SCH (19:51)
[2019-07-11] MEDS: Melatonin 3 MG Tab PO SCH (19:51)
[2019-07-11] MEDS: [UNRECOGNIZED DRUG - OTHER] PO SCH (19:52)
[2019-07-11] MEDS: GABAPENTIN 300 MG PO SCH (19:53)
[2019-07-12] MEDS: Acetaminophen 325 MG Tab PO SCH ×4 (03:20→20:41)
[2019-07-12] MEDS: GABAPENTIN 100 MG PO SCH ×2 (08:50→12:27)
[2019-07-12] MEDS: Famotidine 20 MG Tab PO SCH (08:50)
[2019-07-12] MEDS: Multivitamin, Stress Formula with Zinc Tab PO SCH (08:50)
[2019-07-12] MEDS: Omeprazole 20 MG Cap.CR PO SCH (08:50)
[2019-07-12] MEDS: [UNRECOGNIZED DRUG - OTHER] PO SCH (08:51)
[2019-07-12] MEDS: SERTRALINE 100 MG PO SCH (08:51)
[2019-07-12] MEDS: [UNRECOGNIZED DRUG - OTHER] PO SCH (08:52)
[2019-07-12] MEDS: Ferrous Sulfate 325 MG Tab PO SCH (12:26)
[2019-07-12] MEDS: GABAPENTIN 300 MG PO SCH (20:39)
[2019-07-12] MEDS: ROPINIROLE 0.5 MG PO SCH (20:41)
[2019-07-12] MEDS: Melatonin 3 MG Tab PO SCH (20:41)
[2019-07-12] MEDS: [UNRECOGNIZED DRUG - OTHER] PO SCH (20:42)
[2019-07-13] MEDS: Acetaminophen 325 MG Tab PO SCH ×4 (04:25→20:28)
[2019-07-13] MEDS: Multivitamin, Stress Formula with Zinc Tab PO SCH (09:04)
[2019-07-13] MEDS: Famotidine 20 MG Tab PO SCH (09:04)
[2019-07-13] MEDS: [UNRECOGNIZED DRUG - OTHER] PO SCH (09:04)
[2019-07-13] MEDS: Omeprazole 20 MG Cap.CR PO SCH (09:04)
[2019-07-13] MEDS: GABAPENTIN 100 MG PO SCH ×2 (09:04→12:10)
[2019-07-13] MEDS: [UNRECOGNIZED DRUG - OTHER] PO SCH (09:05)
[2019-07-13] MEDS: SERTRALINE 100 MG PO SCH (09:05)
[2019-07-13] MEDS: GABAPENTIN 300 MG PO SCH (20:27)
[2019-07-13] MEDS: [UNRECOGNIZED DRUG - OTHER] PO SCH (20:28)
[2019-07-13] MEDS: ROPINIROLE 0.5 MG PO SCH (20:28)
[2019-07-13] MEDS: Melatonin 3 MG Tab PO SCH (20:29)
[2019-07-14] MEDS: Acetaminophen 325 MG Tab PO SCH ×4 (03:01→19:33)
[2019-07-14] MEDS: SERTRALINE 100 MG PO SCH (08:32)
[2019-07-14] MEDS: Omeprazole 20 MG Cap.CR PO SCH (08:32)
[2019-07-14] MEDS: Multivitamin, Stress Formula with Zinc Tab PO SCH (08:32)
[2019-07-14] MEDS: Famotidine 20 MG Tab PO SCH (08:32)
[2019-07-14] MEDS: [UNRECOGNIZED DRUG - OTHER] PO SCH (08:34)
[2019-07-14] MEDS: GABAPENTIN 100 MG PO SCH ×2 (08:35→12:26)
[2019-07-14] MEDS: [UNRECOGNIZED DRUG - OTHER] PO SCH (08:35)
[2019-07-14] MEDS: Ferrous Sulfate 325 MG Tab PO SCH (13:56)
[2019-07-14] MEDS: GABAPENTIN 300 MG PO SCH (19:31)
[2019-07-14] MEDS: ROPINIROLE 0.5 MG PO SCH (19:32)
[2019-07-14] MEDS: Melatonin 3 MG Tab PO SCH (19:33)
[2019-07-14] MEDS: WARFARIN PO SCH (19:33)
[2019-07-15] MEDS: Acetaminophen 325 MG Tab PO SCH ×4 (05:13→20:31)
[2019-07-15] MEDS: Famotidine 20 MG Tab PO SCH (07:43)
[2019-07-15] MEDS: Omeprazole 20 MG Cap.CR PO SCH (07:43)
[2019-07-15] MEDS: SERTRALINE 100 MG PO SCH (07:43)
[2019-07-15] MEDS: GABAPENTIN 100 MG PO SCH ×2 (07:43→13:05)
[2019-07-15] MEDS: [UNRECOGNIZED DRUG - OTHER] PO SCH (07:43)
[2019-07-15] MEDS: [UNRECOGNIZED DRUG - OTHER] PO SCH (07:43)
[2019-07-15] MEDS: Multivitamin, Stress Formula with Zinc Tab PO SCH (07:43)
[2019-07-15] MEDS: GABAPENTIN 300 MG PO SCH (20:30)
[2019-07-15] MEDS: Melatonin 3 MG Tab PO SCH (20:31)
[2019-07-15] MEDS: ROPINIROLE 0.5 MG PO SCH (20:31)
[2019-07-15] MEDS: [UNRECOGNIZED DRUG - OTHER] PO SCH (20:31)
[2019-07-16] MEDS: Acetaminophen 325 MG Tab PO SCH ×4 (03:07→20:13)
[2019-07-16] MEDS: Famotidine 20 MG Tab PO SCH (07:51)
[2019-07-16] MEDS: Omeprazole 20 MG Cap.CR PO SCH (07:51)
[2019-07-16] MEDS: Multivitamin, Stress Formula with Zinc Tab PO SCH (07:51)
[2019-07-16] MEDS: GABAPENTIN 100 MG PO SCH ×2 (07:52→12:33)
[2019-07-16] MEDS: SERTRALINE 100 MG PO SCH (07:53)
[2019-07-16] MEDS: [UNRECOGNIZED DRUG - OTHER] PO SCH (07:53)
[2019-07-16] MEDS: [UNRECOGNIZED DRUG - OTHER] PO SCH (07:53)
[2019-07-16] MEDS: Ferrous Sulfate 325 MG Tab PO SCH (12:33)
[2019-07-16] MEDS: GABAPENTIN 300 MG PO SCH (20:10)
[2019-07-16] MEDS: ROPINIROLE 0.5 MG PO SCH (20:12)
[2019-07-16] MEDS: [UNRECOGNIZED DRUG - OTHER] PO SCH (20:12)
[2019-07-16] MEDS: Melatonin 3 MG Tab PO SCH (20:13)
[2019-07-17] MEDS: Acetaminophen 325 MG Tab PO SCH ×4 (05:27→20:59)
[2019-07-17] MEDS: Famotidine 20 MG Tab PO SCH (07:55)
[2019-07-17] MEDS: GABAPENTIN 100 MG PO SCH ×2 (07:55→12:09)
[2019-07-17] MEDS: Omeprazole 20 MG Cap.CR PO SCH (07:55)
[2019-07-17] MEDS: Multivitamin, Stress Formula with Zinc Tab PO SCH (07:55)
[2019-07-17] MEDS: [UNRECOGNIZED DRUG - OTHER] PO SCH (07:55)
[2019-07-17] MEDS: [UNRECOGNIZED DRUG - OTHER] PO SCH (07:55)
[2019-07-17] MEDS: SERTRALINE 100 MG PO SCH (07:55)
[2019-07-17] MEDS: GABAPENTIN 300 MG PO SCH (20:56)
[2019-07-17] MEDS: WARFARIN PO SCH (20:58)
[2019-07-17] MEDS: ROPINIROLE 0.5 MG PO SCH (20:58)
[2019-07-17] MEDS: Melatonin 3 MG Tab PO SCH (20:59)
[2019-07-18] MEDS: Acetaminophen 325 MG Tab PO SCH ×4 (05:32→21:25)
[2019-07-18] MEDS: [UNRECOGNIZED DRUG - OTHER] PO SCH (07:55)
[2019-07-18] MEDS: [UNRECOGNIZED DRUG - OTHER] PO SCH (07:55)
[2019-07-18] MEDS: GABAPENTIN 100 MG PO SCH ×2 (07:55→12:46)
[2019-07-18] MEDS: Famotidine 20 MG Tab PO SCH (07:55)
[2019-07-18] MEDS: Omeprazole 20 MG Cap.CR PO SCH (07:55)
[2019-07-18] MEDS: Multivitamin, Stress Formula with Zinc Tab PO SCH (07:55)
[2019-07-18] MEDS: SERTRALINE 100 MG PO SCH (07:56)
[2019-07-18] MEDS: Ferrous Sulfate 325 MG Tab PO SCH (12:45)
[2019-07-18] MEDS: GABAPENTIN 300 MG PO SCH (21:20)
[2019-07-18] MEDS: ROPINIROLE 0.5 MG PO SCH (21:20)
[2019-07-18] MEDS: [UNRECOGNIZED DRUG - OTHER] PO SCH (21:24)
[2019-07-18] MEDS: Melatonin 3 MG Tab PO SCH (21:25)
[2019-07-18] MEDS: Calcium Carbonate 750 MG Tab.Chew PO PRN (21:26)
[2019-07-19] MEDS: Acetaminophen 325 MG Tab PO SCH ×4 (02:25→20:53)
[2019-07-19] MEDS: [UNRECOGNIZED DRUG - OTHER] PO SCH (08:30)
[2019-07-19] MEDS: SERTRALINE 100 MG PO SCH (08:30)
[2019-07-19] MEDS: [UNRECOGNIZED DRUG - OTHER] PO SCH (08:31)
[2019-07-19] MEDS: Multivitamin, Stress Formula with Zinc Tab PO SCH (08:31)
[2019-07-19] MEDS: Omeprazole 20 MG Cap.CR PO SCH (08:31)
[2019-07-19] MEDS: Famotidine 20 MG Tab PO SCH (08:31)
[2019-07-19] MEDS: GABAPENTIN 100 MG PO SCH ×2 (08:31→12:28)
[2019-07-19] MEDS: Melatonin 3 MG Tab PO SCH (20:53)
[2019-07-19] MEDS: [UNRECOGNIZED DRUG - OTHER] PO SCH (20:53)
[2019-07-19] MEDS: GABAPENTIN 300 MG PO SCH (20:54)
[2019-07-19] MEDS: ROPINIROLE 0.5 MG PO SCH (20:56)
[2019-07-20] MEDS: Acetaminophen 325 MG Tab PO SCH ×4 (01:06→19:29)
[2019-07-20] MEDS: Multivitamin, Stress Formula with Zinc Tab PO SCH (07:33)
[2019-07-20] MEDS: Famotidine 20 MG Tab PO SCH (07:33)
[2019-07-20] MEDS: Omeprazole 20 MG Cap.CR PO SCH (07:33)
[2019-07-20] MEDS: GABAPENTIN 100 MG PO SCH ×2 (07:34→12:25)
[2019-07-20] MEDS: [UNRECOGNIZED DRUG - OTHER] PO SCH (07:34)
[2019-07-20] MEDS: SERTRALINE 100 MG PO SCH (07:34)
[2019-07-20] MEDS: [UNRECOGNIZED DRUG - OTHER] PO SCH (07:40)
[2019-07-20] MEDS: Ferrous Sulfate 325 MG Tab PO SCH (12:25)
[2019-07-20] MEDS: Melatonin 3 MG Tab PO SCH (19:29)
[2019-07-20] MEDS: GABAPENTIN 300 MG PO SCH (19:30)
[2019-07-20] MEDS: [UNRECOGNIZED DRUG - OTHER] PO SCH (19:31)
[2019-07-20] MEDS: ROPINIROLE 0.5 MG PO SCH (19:32)
[2019-07-21] MEDS: Acetaminophen 325 MG Tab PO SCH ×4 (04:43→19:59)
[2019-07-21] MEDS: Omeprazole 20 MG Cap.CR PO SCH (08:30)
[2019-07-21] MEDS: Multivitamin, Stress Formula with Zinc Tab PO SCH (08:30)
[2019-07-21] MEDS: Famotidine 20 MG Tab PO SCH (08:31)
[2019-07-21] MEDS: [UNRECOGNIZED DRUG - OTHER] PO SCH (08:31)
[2019-07-21] MEDS: SERTRALINE 100 MG PO SCH (08:31)
[2019-07-21] MEDS: GABAPENTIN 100 MG PO SCH ×2 (08:32→14:00)
[2019-07-21] MEDS: [UNRECOGNIZED DRUG - OTHER] PO SCH (08:32)
[2019-07-21] MEDS: Melatonin 3 MG Tab PO SCH (19:59)
[2019-07-21] MEDS: WARFARIN PO SCH (20:00)
[2019-07-21] MEDS: GABAPENTIN 300 MG PO SCH (20:00)
[2019-07-21] MEDS: ROPINIROLE 0.5 MG PO SCH (20:01)
[2019-07-22] MEDS: Acetaminophen 325 MG Tab PO SCH ×4 (04:53→21:19)
[2019-07-22] MEDS: SERTRALINE 100 MG PO SCH (08:05)
[2019-07-22] MEDS: Famotidine 20 MG Tab PO SCH (08:05)
[2019-07-22] MEDS: [UNRECOGNIZED DRUG - OTHER] PO SCH (08:05)
[2019-07-22] MEDS: Omeprazole 20 MG Cap.CR PO SCH (08:05)
[2019-07-22] MEDS: Multivitamin, Stress Formula with Zinc Tab PO SCH (08:05)
[2019-07-22] MEDS: GABAPENTIN 100 MG PO SCH ×2 (08:06→13:53)
[2019-07-22] MEDS: [UNRECOGNIZED DRUG - OTHER] PO SCH (08:06)
[2019-07-22] MEDS: Ferrous Sulfate 325 MG Tab PO SCH (13:52)
[2019-07-22] MEDS: ROPINIROLE 0.5 MG PO SCH (21:17)
[2019-07-22] MEDS: [UNRECOGNIZED DRUG - OTHER] PO SCH (21:18)
[2019-07-22] MEDS: GABAPENTIN 300 MG PO SCH (21:18)
[2019-07-22] MEDS: Melatonin 3 MG Tab PO SCH (21:19)
[2019-07-22] MEDS: Calcium Carbonate 750 MG Tab.Chew PO PRN (21:23)
[2019-07-23] MEDS: Acetaminophen 325 MG Tab PO SCH ×4 (03:19→20:53)
[2019-07-23] MEDS: [UNRECOGNIZED DRUG - OTHER] PO SCH (07:47)
[2019-07-23] MEDS: SERTRALINE 100 MG PO SCH (07:47)
[2019-07-23] MEDS: Multivitamin, Stress Formula with Zinc Tab PO SCH (07:47)
[2019-07-23] MEDS: Famotidine 20 MG Tab PO SCH (07:47)
[2019-07-23] MEDS: [UNRECOGNIZED DRUG - OTHER] PO SCH (07:47)
[2019-07-23] MEDS: GABAPENTIN 100 MG PO SCH ×2 (07:47→13:28)
[2019-07-23] MEDS: Omeprazole 20 MG Cap.CR PO SCH (07:47)
[2019-07-23] MEDS: [UNRECOGNIZED DRUG - OTHER] PO SCH (20:51)
[2019-07-23] MEDS: GABAPENTIN 300 MG PO SCH (20:51)
[2019-07-23] MEDS: Melatonin 3 MG Tab PO SCH (20:51)
[2019-07-23] MEDS: ROPINIROLE 0.5 MG PO SCH (20:53)
[2019-07-24] MEDS: Acetaminophen 325 MG Tab PO SCH ×4 (03:56→20:41)
[2019-07-24] MEDS: Multivitamin, Stress Formula with Zinc Tab PO SCH (08:36)
[2019-07-24] MEDS: [UNRECOGNIZED DRUG - OTHER] PO SCH (08:36)
[2019-07-24] MEDS: SERTRALINE 100 MG PO SCH (08:36)
[2019-07-24] MEDS: GABAPENTIN 100 MG PO SCH ×2 (08:36→14:21)
[2019-07-24] MEDS: Omeprazole 20 MG Cap.CR PO SCH (08:36)
[2019-07-24] MEDS: Famotidine 20 MG Tab PO SCH (08:36)
[2019-07-24] MEDS: [UNRECOGNIZED DRUG - OTHER] PO SCH (08:37)
[2019-07-24] MEDS: Calcium Carbonate 750 MG Tab.Chew PO PRN (12:15)
[2019-07-24] MEDS: Ferrous Sulfate 325 MG Tab PO SCH (14:21)
[2019-07-24] MEDS: ROPINIROLE 0.5 MG PO SCH (20:41)
[2019-07-24] MEDS: GABAPENTIN 300 MG PO SCH (20:41)
[2019-07-24] MEDS: Melatonin 3 MG Tab PO SCH (20:41)
[2019-07-24] MEDS: WARFARIN PO SCH (20:41)
[2019-07-25] MEDS: Acetaminophen 325 MG Tab PO SCH ×4 (02:22→21:05)
[2019-07-25] MEDS: [UNRECOGNIZED DRUG - OTHER] PO SCH (08:38)
[2019-07-25] MEDS: Famotidine 20 MG Tab PO SCH (08:39)
[2019-07-25] MEDS: [UNRECOGNIZED DRUG - OTHER] PO SCH (08:39)
[2019-07-25] MEDS: Omeprazole 20 MG Cap.CR PO SCH (08:39)
[2019-07-25] MEDS: SERTRALINE 100 MG PO SCH (08:39)
[2019-07-25] MEDS: Multivitamin, Stress Formula with Zinc Tab PO SCH (08:39)
[2019-07-25] MEDS: GABAPENTIN 100 MG PO SCH ×2 (08:40→13:07)
[2019-07-25] MEDS: GABAPENTIN 300 MG PO SCH (21:03)
[2019-07-25] MEDS: ROPINIROLE 0.5 MG PO SCH (21:04)
[2019-07-25] MEDS: [UNRECOGNIZED DRUG - OTHER] PO SCH (21:04)
[2019-07-25] MEDS: Melatonin 3 MG Tab PO SCH (21:05)
[2019-07-26] MEDS: Acetaminophen 325 MG Tab PO SCH ×4 (04:37→19:54)
[2019-07-26] MEDS: [UNRECOGNIZED DRUG - OTHER] PO SCH (09:31)
[2019-07-26] MEDS: [UNRECOGNIZED DRUG - OTHER] PO SCH (09:31)
[2019-07-26] MEDS: SERTRALINE 100 MG PO SCH (09:31)
[2019-07-26] MEDS: Famotidine 20 MG Tab PO SCH (09:32)
[2019-07-26] MEDS: Multivitamin, Stress Formula with Zinc Tab PO SCH (09:32)
[2019-07-26] MEDS: Omeprazole 20 MG Cap.CR PO SCH (09:32)
[2019-07-26] MEDS: GABAPENTIN 100 MG PO SCH ×2 (09:32→12:08)
[2019-07-26] MEDS: Ferrous Sulfate 325 MG Tab PO SCH (12:08)
[2019-07-26] MEDS: Calcium Carbonate 750 MG Tab.Chew PO PRN ×2 (12:22→19:55)
[2019-07-26] MEDS: GABAPENTIN 300 MG PO SCH (19:53)
[2019-07-26] MEDS: Melatonin 3 MG Tab PO SCH (19:54)
[2019-07-26] MEDS: ROPINIROLE 0.5 MG PO SCH (19:54)
[2019-07-26] MEDS: [UNRECOGNIZED DRUG - OTHER] PO SCH (19:54)
[2019-07-27] MEDS: Acetaminophen 325 MG Tab PO SCH ×4 (05:25→20:54)
[2019-07-27] MEDS: GABAPENTIN 100 MG PO SCH ×2 (08:43→14:40)
[2019-07-27] MEDS: Famotidine 20 MG Tab PO SCH (08:44)
[2019-07-27] MEDS: [UNRECOGNIZED DRUG - OTHER] PO SCH (08:44)
[2019-07-27] MEDS: Multivitamin, Stress Formula with Zinc Tab PO SCH (08:44)
[2019-07-27] MEDS: Omeprazole 20 MG Cap.CR PO SCH (08:44)
[2019-07-27] MEDS: SERTRALINE 100 MG PO SCH (08:45)
[2019-07-27] MEDS: [UNRECOGNIZED DRUG - OTHER] PO SCH (08:45)
[2019-07-27] MEDS: Calcium Carbonate 750 MG Tab.Chew PO PRN ×2 (08:47→14:41)
[2019-07-27] MEDS: Melatonin 3 MG Tab PO SCH (20:54)
[2019-07-27] MEDS: [UNRECOGNIZED DRUG - OTHER] PO SCH (20:55)
[2019-07-27] MEDS: GABAPENTIN 300 MG PO SCH (20:55)
[2019-07-27] MEDS: ROPINIROLE 0.5 MG PO SCH (20:56)
[2019-07-28] MEDS: Acetaminophen 325 MG Tab PO SCH ×4 (04:16→20:50)
[2019-07-28] MEDS: [UNRECOGNIZED DRUG - OTHER] PO SCH (08:34)
[2019-07-28] MEDS: SERTRALINE 100 MG PO SCH (08:35)
[2019-07-28] MEDS: [UNRECOGNIZED DRUG - OTHER] PO SCH (08:35)
[2019-07-28] MEDS: GABAPENTIN 100 MG PO SCH ×2 (08:35→12:09)
[2019-07-28] MEDS: Omeprazole 20 MG Cap.CR PO SCH (08:36)
[2019-07-28] MEDS: Famotidine 20 MG Tab PO SCH (08:36)
[2019-07-28] MEDS: Multivitamin, Stress Formula with Zinc Tab PO SCH (08:36)
[2019-07-28] MEDS: Ferrous Sulfate 325 MG Tab PO SCH (12:08)
[2019-07-28] MEDS: Calcium Carbonate 750 MG Tab.Chew PO PRN (12:46)
[2019-07-28] MEDS: Melatonin 3 MG Tab PO SCH (20:50)
[2019-07-28] MEDS: GABAPENTIN 300 MG PO SCH (20:51)
[2019-07-28] MEDS: ROPINIROLE 0.5 MG PO SCH (20:52)
[2019-07-28] MEDS: WARFARIN PO SCH (20:52)
[2019-07-29] MEDS: Acetaminophen 325 MG Tab PO SCH ×4 (04:53→19:53)
[2019-07-29] MEDS: SERTRALINE 100 MG PO SCH (08:17)
[2019-07-29] MEDS: Omeprazole 20 MG Cap.CR PO SCH (08:17)
[2019-07-29] MEDS: [UNRECOGNIZED DRUG - OTHER] PO SCH (08:17)
[2019-07-29] MEDS: Famotidine 20 MG Tab PO SCH (08:17)
[2019-07-29] MEDS: [UNRECOGNIZED DRUG - OTHER] PO SCH (08:17)
[2019-07-29] MEDS: GABAPENTIN 100 MG PO SCH ×2 (08:18→13:50)
[2019-07-29] MEDS: Multivitamin, Stress Formula with Zinc Tab PO SCH (08:18)
[2019-07-29] MEDS: ROPINIROLE 0.5 MG PO SCH (19:51)
[2019-07-29] MEDS: GABAPENTIN 300 MG PO SCH (19:52)
[2019-07-29] MEDS: [UNRECOGNIZED DRUG - OTHER] PO SCH (19:52)
[2019-07-29] MEDS: Melatonin 3 MG Tab PO SCH (19:55)
[2019-07-30] MEDS: Acetaminophen 325 MG Tab PO SCH ×4 (03:15→20:29)
[2019-07-30] MEDS: Famotidine 20 MG Tab PO SCH (08:23)
[2019-07-30] MEDS: SERTRALINE 100 MG PO SCH (08:23)
[2019-07-30] MEDS: Multivitamin, Stress Formula with Zinc Tab PO SCH (08:23)
[2019-07-30] MEDS: Omeprazole 20 MG Cap.CR PO SCH (08:23)
[2019-07-30] MEDS: [UNRECOGNIZED DRUG - OTHER] PO SCH (08:23)
[2019-07-30] MEDS: GABAPENTIN 100 MG PO SCH ×2 (08:23→12:45)
[2019-07-30] MEDS: [UNRECOGNIZED DRUG - OTHER] PO SCH (08:23)
[2019-07-30] MEDS: Ferrous Sulfate 325 MG Tab PO SCH (12:45)
[2019-07-30] MEDS: Melatonin 3 MG Tab PO SCH (20:28)
[2019-07-30] MEDS: [UNRECOGNIZED DRUG - OTHER] PO SCH (20:28)
[2019-07-30] MEDS: ROPINIROLE 0.5 MG PO SCH (20:28)
[2019-07-30] MEDS: GABAPENTIN 300 MG PO SCH (20:29)
[2019-07-31] MEDS: Acetaminophen 325 MG Tab PO SCH ×4 (04:44→20:07)
[2019-07-31] MEDS: GABAPENTIN 100 MG PO SCH ×2 (07:59→12:55)
[2019-07-31] MEDS: SERTRALINE 100 MG PO SCH (07:59)
[2019-07-31] MEDS: [UNRECOGNIZED DRUG - OTHER] PO SCH (07:59)
[2019-07-31] MEDS: Omeprazole 20 MG Cap.CR PO SCH (07:59)
[2019-07-31] MEDS: [UNRECOGNIZED DRUG - OTHER] PO SCH (07:59)
[2019-07-31] MEDS: Multivitamin, Stress Formula with Zinc Tab PO SCH (08:00)
[2019-07-31] MEDS: Famotidine 20 MG Tab PO SCH (08:00)
[2019-07-31] MEDS: GABAPENTIN 300 MG PO SCH (20:06)
[2019-07-31] MEDS: WARFARIN PO SCH (20:06)
[2019-07-31] MEDS: Melatonin 3 MG Tab PO SCH (20:07)
[2019-07-31] MEDS: ROPINIROLE 0.5 MG PO SCH (20:07)
[2019-08-01] MEDS: Acetaminophen 325 MG Tab PO SCH ×4 (05:44→19:35)
[2019-08-01] MEDS: [UNRECOGNIZED DRUG - OTHER] PO SCH (09:18)
[2019-08-01] MEDS: Famotidine 20 MG Tab PO SCH (09:22)
[2019-08-01] MEDS: Omeprazole 20 MG Cap.CR PO SCH (09:22)
[2019-08-01] MEDS: GABAPENTIN 100 MG PO SCH ×2 (09:22→12:10)
[2019-08-01] MEDS: [UNRECOGNIZED DRUG - OTHER] PO SCH (09:22)
[2019-08-01] MEDS: Multivitamin, Stress Formula with Zinc Tab PO SCH (09:22)
[2019-08-01] MEDS: SERTRALINE 100 MG PO SCH (09:22)
[2019-08-01] MEDS: Ferrous Sulfate 325 MG Tab PO SCH (12:09)
[2019-08-01] MEDS: GABAPENTIN 300 MG PO SCH (19:34)
[2019-08-01] MEDS: ROPINIROLE 0.5 MG PO SCH (19:35)
[2019-08-01] MEDS: Melatonin 3 MG Tab PO SCH (19:35)
[2019-08-01] MEDS: [UNRECOGNIZED DRUG - OTHER] PO SCH (19:36)
[2019-08-02] MEDS: Acetaminophen 325 MG Tab PO SCH ×4 (03:15→19:34)
[2019-08-02] MEDS: [UNRECOGNIZED DRUG - OTHER] PO SCH (08:25)
[2019-08-02] MEDS: SERTRALINE 100 MG PO SCH (08:26)
[2019-08-02] MEDS: Omeprazole 20 MG Cap.CR PO SCH (08:26)
[2019-08-02] MEDS: Multivitamin, Stress Formula with Zinc Tab PO SCH (08:26)
[2019-08-02] MEDS: Famotidine 20 MG Tab PO SCH (08:26)
[2019-08-02] MEDS: [UNRECOGNIZED DRUG - OTHER] PO SCH (08:26)
[2019-08-02] MEDS: GABAPENTIN 100 MG PO SCH ×2 (08:27→12:32)
[2019-08-02] MEDS: GABAPENTIN 300 MG PO SCH (19:34)
[2019-08-02] MEDS: Melatonin 3 MG Tab PO SCH (19:34)
[2019-08-02] MEDS: ROPINIROLE 0.5 MG PO SCH (19:35)
[2019-08-02] MEDS: [UNRECOGNIZED DRUG - OTHER] PO SCH (19:35)
[2019-08-03] MEDS: Acetaminophen 325 MG Tab PO SCH ×4 (05:43→19:27)
[2019-08-03] MEDS: [UNRECOGNIZED DRUG - OTHER] PO SCH (07:57)
[2019-08-03] MEDS: [UNRECOGNIZED DRUG - OTHER] PO SCH (07:57)
[2019-08-03] MEDS: Famotidine 20 MG Tab PO SCH (07:58)
[2019-08-03] MEDS: Multivitamin, Stress Formula with Zinc Tab PO SCH (07:58)
[2019-08-03] MEDS: SERTRALINE 100 MG PO SCH (07:58)
[2019-08-03] MEDS: Omeprazole 20 MG Cap.CR PO SCH (07:58)
[2019-08-03] MEDS: GABAPENTIN 100 MG PO SCH ×2 (07:59→12:24)
[2019-08-03] MEDS: Ferrous Sulfate 325 MG Tab PO SCH (12:25)
[2019-08-03] MEDS: GABAPENTIN 300 MG PO SCH (19:25)
[2019-08-03] MEDS: ROPINIROLE 0.5 MG PO SCH (19:26)
[2019-08-03] MEDS: [UNRECOGNIZED DRUG - OTHER] PO SCH (19:26)
[2019-08-03] MEDS: Melatonin 3 MG Tab PO SCH (19:27)
[2019-08-04] MEDS: Acetaminophen 325 MG Tab PO SCH ×4 (04:17→19:46)
[2019-08-04] MEDS: Famotidine 20 MG Tab PO SCH (07:33)
[2019-08-04] MEDS: Omeprazole 20 MG Cap.CR PO SCH (07:33)
[2019-08-04] MEDS: [UNRECOGNIZED DRUG - OTHER] PO SCH (07:33)
[2019-08-04] MEDS: Multivitamin, Stress Formula with Zinc Tab PO SCH (07:33)
[2019-08-04] MEDS: [UNRECOGNIZED DRUG - OTHER] PO SCH (07:34)
[2019-08-04] MEDS: GABAPENTIN 100 MG PO SCH ×2 (07:34→13:17)
[2019-08-04] MEDS: SERTRALINE 100 MG PO SCH (08:31)
[2019-08-04] MEDS: Melatonin 3 MG Tab PO SCH (19:46)
[2019-08-04] MEDS: GABAPENTIN 300 MG PO SCH (19:47)
[2019-08-04] MEDS: WARFARIN PO SCH (19:47)
[2019-08-04] MEDS: ROPINIROLE 0.5 MG PO SCH (19:48)
[2019-08-05] MEDS: Acetaminophen 325 MG Tab PO SCH ×4 (03:10→19:28)
[2019-08-05] MEDS: Omeprazole 20 MG Cap.CR PO SCH (08:01)
[2019-08-05] MEDS: Famotidine 20 MG Tab PO SCH (08:01)
[2019-08-05] MEDS: SERTRALINE 100 MG PO SCH (08:01)
[2019-08-05] MEDS: GABAPENTIN 100 MG PO SCH ×2 (08:01→12:06)
[2019-08-05] MEDS: Multivitamin, Stress Formula with Zinc Tab PO SCH (08:01)
[2019-08-05] MEDS: [UNRECOGNIZED DRUG - OTHER] PO SCH (08:01)
[2019-08-05] MEDS: [UNRECOGNIZED DRUG - OTHER] PO SCH (08:02)
[2019-08-05] MEDS: Ferrous Sulfate 325 MG Tab PO SCH (12:06)
[2019-08-05] MEDS: Calcium Carbonate 750 MG Tab.Chew PO PRN ×2 (12:17→18:00)
[2019-08-05] MEDS: GABAPENTIN 300 MG PO SCH (19:26)
[2019-08-05] MEDS: [UNRECOGNIZED DRUG - OTHER] PO SCH (19:28)
[2019-08-05] MEDS: Melatonin 3 MG Tab PO SCH (19:28)
[2019-08-05] MEDS: ROPINIROLE 0.5 MG PO SCH (19:28)
[2019-08-06] MEDS: Acetaminophen 325 MG Tab PO SCH ×4 (05:30→19:36)
[2019-08-06] MEDS: Omeprazole 20 MG Cap.CR PO SCH (07:44)
[2019-08-06] MEDS: Famotidine 20 MG Tab PO SCH (07:44)
[2019-08-06] MEDS: Multivitamin, Stress Formula with Zinc Tab PO SCH (07:44)
[2019-08-06] MEDS: GABAPENTIN 100 MG PO SCH ×2 (07:45→12:26)
[2019-08-06] MEDS: SERTRALINE 100 MG PO SCH (07:45)
[2019-08-06] MEDS: [UNRECOGNIZED DRUG - OTHER] PO SCH (07:45)
[2019-08-06] MEDS: [UNRECOGNIZED DRUG - OTHER] PO SCH (07:48)
[2019-08-06] MEDS: GABAPENTIN 300 MG PO SCH (19:35)
[2019-08-06] MEDS: Melatonin 3 MG Tab PO SCH (19:36)
[2019-08-06] MEDS: ROPINIROLE 0.5 MG PO SCH (19:36)
[2019-08-06] MEDS: [UNRECOGNIZED DRUG - OTHER] PO SCH (19:36)
[2019-08-07] MEDS: Acetaminophen 325 MG Tab PO SCH ×4 (05:58→19:23)
[2019-08-07] MEDS: [UNRECOGNIZED DRUG - OTHER] PO SCH (08:13)
[2019-08-07] MEDS: SERTRALINE 100 MG PO SCH (08:13)
[2019-08-07] MEDS: [UNRECOGNIZED DRUG - OTHER] PO SCH (08:13)
[2019-08-07] MEDS: GABAPENTIN 100 MG PO SCH ×2 (08:14→12:37)
[2019-08-07] MEDS: Omeprazole 20 MG Cap.CR PO SCH (08:15)
[2019-08-07] MEDS: Famotidine 20 MG Tab PO SCH (08:15)
[2019-08-07] MEDS: Multivitamin, Stress Formula with Zinc Tab PO SCH (08:15)
[2019-08-07] MEDS: Ferrous Sulfate 325 MG Tab PO SCH (12:38)
[2019-08-07] MEDS: WARFARIN PO SCH (19:22)
[2019-08-07] MEDS: GABAPENTIN 300 MG PO SCH (19:22)
[2019-08-07] MEDS: ROPINIROLE 0.5 MG PO SCH (19:22)
[2019-08-07] MEDS: Melatonin 3 MG Tab PO SCH (19:23)
[2019-08-08] MEDS: Acetaminophen 325 MG Tab PO SCH ×4 (05:24→20:34)
[2019-08-08] MEDS: [UNRECOGNIZED DRUG - OTHER] PO SCH (07:30)
[2019-08-08] MEDS: [UNRECOGNIZED DRUG - OTHER] PO SCH (07:30)
[2019-08-08] MEDS: GABAPENTIN 100 MG PO SCH ×2 (07:30→12:21)
[2019-08-08] MEDS: SERTRALINE 100 MG PO SCH (07:31)
[2019-08-08] MEDS: Omeprazole 20 MG Cap.CR PO SCH (07:33)
[2019-08-08] MEDS: Famotidine 20 MG Tab PO SCH (07:33)
[2019-08-08] MEDS: Multivitamin, Stress Formula with Zinc Tab PO SCH (07:33)
[2019-08-08] MEDS: Calcium Carbonate 750 MG Tab.Chew PO PRN (17:48)
[2019-08-08] MEDS: Melatonin 3 MG Tab PO SCH (20:34)
[2019-08-08] MEDS: GABAPENTIN 300 MG PO SCH (20:34)
[2019-08-08] MEDS: ROPINIROLE 0.5 MG PO SCH (20:35)
[2019-08-08] MEDS: [UNRECOGNIZED DRUG - OTHER] PO SCH (20:35)
[2019-08-09] MEDS: Acetaminophen 325 MG Tab PO SCH ×4 (04:28→19:47)
[2019-08-09] MEDS: Famotidine 20 MG Tab PO SCH (07:42)
[2019-08-09] MEDS: Omeprazole 20 MG Cap.CR PO SCH (07:42)
[2019-08-09] MEDS: Multivitamin, Stress Formula with Zinc Tab PO SCH (07:43)
[2019-08-09] MEDS: GABAPENTIN 100 MG PO SCH ×2 (07:43→12:10)
[2019-08-09] MEDS: [UNRECOGNIZED DRUG - OTHER] PO SCH (07:43)
[2019-08-09] MEDS: [UNRECOGNIZED DRUG - OTHER] PO SCH (07:43)
[2019-08-09] MEDS: SERTRALINE 100 MG PO SCH (07:44)
[2019-08-09] MEDS: Ferrous Sulfate 325 MG Tab PO SCH (12:10)
[2019-08-09] MEDS: Melatonin 3 MG Tab PO SCH (19:47)
[2019-08-09] MEDS: [UNRECOGNIZED DRUG - OTHER] PO SCH (19:48)
[2019-08-09] MEDS: ROPINIROLE 0.5 MG PO SCH (19:48)
[2019-08-09] MEDS: GABAPENTIN 300 MG PO SCH (19:48)
[2019-08-10] MEDS: Acetaminophen 325 MG Tab PO SCH ×4 (02:15→20:12)
[2019-08-10] MEDS: GABAPENTIN 100 MG PO SCH ×2 (08:38→12:24)
[2019-08-10] MEDS: [UNRECOGNIZED DRUG - OTHER] PO SCH (08:38)
[2019-08-10] MEDS: Multivitamin, Stress Formula with Zinc Tab PO SCH (08:40)
[2019-08-10] MEDS: Famotidine 20 MG Tab PO SCH (08:40)
[2019-08-10] MEDS: Omeprazole 20 MG Cap.CR PO SCH (08:40)
[2019-08-10] MEDS: [UNRECOGNIZED DRUG - OTHER] PO SCH (08:41)
[2019-08-10] MEDS: SERTRALINE 100 MG PO SCH (08:41)
[2019-08-10] MEDS: [UNRECOGNIZED DRUG - OTHER] PO SCH (20:12)
[2019-08-10] MEDS: GABAPENTIN 300 MG PO SCH (20:12)
[2019-08-10] MEDS: ROPINIROLE 0.5 MG PO SCH (20:12)
[2019-08-10] MEDS: Melatonin 3 MG Tab PO SCH (20:13)
[2019-08-11] MEDS: Acetaminophen 325 MG Tab PO SCH ×4 (02:22→19:30)
[2019-08-11] MEDS: SERTRALINE 100 MG PO SCH (07:34)
[2019-08-11] MEDS: [UNRECOGNIZED DRUG - OTHER] PO SCH (07:34)
[2019-08-11] MEDS: [UNRECOGNIZED DRUG - OTHER] PO SCH (07:34)
[2019-08-11] MEDS: Famotidine 20 MG Tab PO SCH (07:35)
[2019-08-11] MEDS: Multivitamin, Stress Formula with Zinc Tab PO SCH (07:35)
[2019-08-11] MEDS: Omeprazole 20 MG Cap.CR PO SCH (07:35)
[2019-08-11] MEDS: GABAPENTIN 100 MG PO SCH ×2 (07:36→14:13)
[2019-08-11] MEDS: Ferrous Sulfate 325 MG Tab PO SCH (11:55)
[2019-08-11] MEDS: Melatonin 3 MG Tab PO SCH (19:30)
[2019-08-11] MEDS: ROPINIROLE 0.5 MG PO SCH (19:30)
[2019-08-11] MEDS: WARFARIN PO SCH (19:30)
[2019-08-11] MEDS: GABAPENTIN 300 MG PO SCH (19:30)
[2019-08-12] MEDS: Acetaminophen 325 MG Tab PO SCH ×4 (04:29→19:27)
[2019-08-12] MEDS: SERTRALINE 100 MG PO SCH (07:57)
[2019-08-12] MEDS: Multivitamin, Stress Formula with Zinc Tab PO SCH (07:57)
[2019-08-12] MEDS: [UNRECOGNIZED DRUG - OTHER] PO SCH (07:57)
[2019-08-12] MEDS: [UNRECOGNIZED DRUG - OTHER] PO SCH (07:57)
[2019-08-12] MEDS: Famotidine 20 MG Tab PO SCH (07:58)
[2019-08-12] MEDS: GABAPENTIN 100 MG PO SCH ×2 (07:58→12:57)
[2019-08-12] MEDS: Omeprazole 20 MG Cap.CR PO SCH (07:58)
[2019-08-12] MEDS: ROPINIROLE 0.5 MG PO SCH (19:26)
[2019-08-12] MEDS: Melatonin 3 MG Tab PO SCH (19:26)
[2019-08-12] MEDS: [UNRECOGNIZED DRUG - OTHER] PO SCH (19:26)
[2019-08-12] MEDS: GABAPENTIN 300 MG PO SCH (19:27)
[2019-08-13] MEDS: Acetaminophen 325 MG Tab PO SCH ×4 (02:15→19:45)
[2019-08-13] MEDS: [UNRECOGNIZED DRUG - OTHER] PO SCH (08:03)
[2019-08-13] MEDS: SERTRALINE 100 MG PO SCH (08:03)
[2019-08-13] MEDS: [UNRECOGNIZED DRUG - OTHER] PO SCH (08:03)
[2019-08-13] MEDS: Famotidine 20 MG Tab PO SCH (08:04)
[2019-08-13] MEDS: Multivitamin, Stress Formula with Zinc Tab PO SCH (08:04)
[2019-08-13] MEDS: Omeprazole 20 MG Cap.CR PO SCH (08:04)
[2019-08-13] MEDS: GABAPENTIN 100 MG PO SCH ×2 (08:04→12:07)
[2019-08-13] MEDS: Ferrous Sulfate 325 MG Tab PO SCH (12:06)
[2019-08-13] MEDS: ROPINIROLE 0.5 MG PO SCH (19:44)
[2019-08-13] MEDS: GABAPENTIN 300 MG PO SCH (19:44)
[2019-08-13] MEDS: [UNRECOGNIZED DRUG - OTHER] PO SCH (19:45)
[2019-08-13] MEDS: Melatonin 3 MG Tab PO SCH (19:45)
[2019-08-14] MEDS: Acetaminophen 325 MG Tab PO SCH ×4 (06:50→19:39)
[2019-08-14] MEDS: [UNRECOGNIZED DRUG - OTHER] PO SCH (08:00)
[2019-08-14] MEDS: SERTRALINE 100 MG PO SCH (08:01)
[2019-08-14] MEDS: [UNRECOGNIZED DRUG - OTHER] PO SCH (08:01)
[2019-08-14] MEDS: Multivitamin, Stress Formula with Zinc Tab PO SCH (08:01)
[2019-08-14] MEDS: Omeprazole 20 MG Cap.CR PO SCH (08:01)
[2019-08-14] MEDS: Famotidine 20 MG Tab PO SCH (08:01)
[2019-08-14] MEDS: GABAPENTIN 100 MG PO SCH ×2 (08:01→12:14)
[2019-08-14] MEDS: Melatonin 3 MG Tab PO SCH (19:39)
[2019-08-14] MEDS: WARFARIN PO SCH (19:40)
[2019-08-14] MEDS: GABAPENTIN 300 MG PO SCH (19:40)
[2019-08-14] MEDS: ROPINIROLE 0.5 MG PO SCH (19:41)
[2019-08-15] MEDS: Acetaminophen 325 MG Tab PO SCH ×4 (04:39→20:18)
[2019-08-15] MEDS: [UNRECOGNIZED DRUG - OTHER] PO SCH (07:56)
[2019-08-15] MEDS: [UNRECOGNIZED DRUG - OTHER] PO SCH (07:57)
[2019-08-15] MEDS: Omeprazole 20 MG Cap.CR PO SCH (07:57)
[2019-08-15] MEDS: SERTRALINE 100 MG PO SCH (07:57)
[2019-08-15] MEDS: GABAPENTIN 100 MG PO SCH ×2 (07:57→12:36)
[2019-08-15] MEDS: Famotidine 20 MG Tab PO SCH (07:57)
[2019-08-15] MEDS: Multivitamin, Stress Formula with Zinc Tab PO SCH (07:58)
[2019-08-15] MEDS: Ferrous Sulfate 325 MG Tab PO SCH (12:36)
[2019-08-15] MEDS: GABAPENTIN 300 MG PO SCH (20:16)
[2019-08-15] MEDS: ROPINIROLE 0.5 MG PO SCH (20:18)
[2019-08-15] MEDS: Melatonin 3 MG Tab PO SCH (20:18)
[2019-08-15] MEDS: [UNRECOGNIZED DRUG - OTHER] PO SCH (20:18)
[2019-08-16] MEDS: Acetaminophen 325 MG Tab PO SCH ×4 (06:55→19:26)
[2019-08-16] MEDS: GABAPENTIN 100 MG PO SCH ×2 (07:35→12:05)
[2019-08-16] MEDS: Multivitamin, Stress Formula with Zinc Tab PO SCH (07:35)
[2019-08-16] MEDS: [UNRECOGNIZED DRUG - OTHER] PO SCH (07:35)
[2019-08-16] MEDS: Famotidine 20 MG Tab PO SCH (07:35)
[2019-08-16] MEDS: Omeprazole 20 MG Cap.CR PO SCH (07:35)
[2019-08-16] MEDS: SERTRALINE 100 MG PO SCH (07:36)
[2019-08-16] MEDS: [UNRECOGNIZED DRUG - OTHER] PO SCH (07:36)
[2019-08-16] MEDS: GABAPENTIN 300 MG PO SCH (19:26)
[2019-08-16] MEDS: ROPINIROLE 0.5 MG PO SCH (19:26)
[2019-08-16] MEDS: Melatonin 3 MG Tab PO SCH (19:26)
[2019-08-16] MEDS: [UNRECOGNIZED DRUG - OTHER] PO SCH (19:27)
[2019-08-17] MEDS: Acetaminophen 325 MG Tab PO SCH ×4 (06:06→19:53)
[2019-08-17] MEDS: Famotidine 20 MG Tab PO SCH (07:25)
[2019-08-17] MEDS: [UNRECOGNIZED DRUG - OTHER] PO SCH (07:25)
[2019-08-17] MEDS: SERTRALINE 100 MG PO SCH (07:25)
[2019-08-17] MEDS: Multivitamin, Stress Formula with Zinc Tab PO SCH (07:25)
[2019-08-17] MEDS: [UNRECOGNIZED DRUG - OTHER] PO SCH (07:25)
[2019-08-17] MEDS: Omeprazole 20 MG Cap.CR PO SCH (07:25)
[2019-08-17] MEDS: GABAPENTIN 100 MG PO SCH ×2 (07:26→12:45)
[2019-08-17] MEDS: Ferrous Sulfate 325 MG Tab PO SCH (12:44)
[2019-08-17] MEDS: [UNRECOGNIZED DRUG - OTHER] PO SCH (19:50)
[2019-08-17] MEDS: ROPINIROLE 0.5 MG PO SCH (19:50)
[2019-08-17] MEDS: Melatonin 3 MG Tab PO SCH (19:51)
[2019-08-17] MEDS: GABAPENTIN 300 MG PO SCH (19:51)
[2019-08-18] MEDS: Acetaminophen 325 MG Tab PO SCH ×4 (01:34→19:38)
[2019-08-18] MEDS: GABAPENTIN 100 MG PO SCH ×2 (07:50→12:19)
[2019-08-18] MEDS: [UNRECOGNIZED DRUG - OTHER] PO SCH (07:50)
[2019-08-18] MEDS: [UNRECOGNIZED DRUG - OTHER] PO SCH (07:50)
[2019-08-18] MEDS: Multivitamin, Stress Formula with Zinc Tab PO SCH (07:51)
[2019-08-18] MEDS: SERTRALINE 100 MG PO SCH (07:51)
[2019-08-18] MEDS: Famotidine 20 MG Tab PO SCH (07:52)
[2019-08-18] MEDS: Omeprazole 20 MG Cap.CR PO SCH (07:52)
[2019-08-18] MEDS: GABAPENTIN 300 MG PO SCH (19:39)
[2019-08-18] MEDS: WARFARIN PO SCH (19:40)
[2019-08-18] MEDS: ROPINIROLE 0.5 MG PO SCH (19:40)
[2019-08-18] MEDS: Melatonin 3 MG Tab PO SCH (19:41)
[2019-08-19] MEDS: Acetaminophen 325 MG Tab PO SCH ×4 (06:10→20:04)
[2019-08-19] MEDS: [UNRECOGNIZED DRUG - OTHER] PO SCH (08:44)
[2019-08-19] MEDS: SERTRALINE 100 MG PO SCH (08:45)
[2019-08-19] MEDS: [UNRECOGNIZED DRUG - OTHER] PO SCH (08:45)
[2019-08-19] MEDS: GABAPENTIN 100 MG PO SCH ×2 (08:46→12:25)
[2019-08-19] MEDS: Multivitamin, Stress Formula with Zinc Tab PO SCH (08:46)
[2019-08-19] MEDS: Famotidine 20 MG Tab PO SCH (08:47)
[2019-08-19] MEDS: Omeprazole 20 MG Cap.CR PO SCH (08:47)
[2019-08-19] MEDS: Ferrous Sulfate 325 MG Tab PO SCH (12:25)
[2019-08-19] MEDS: Melatonin 3 MG Tab PO SCH (20:03)
[2019-08-19] MEDS: [UNRECOGNIZED DRUG - OTHER] PO SCH (20:05)
[2019-08-19] MEDS: ROPINIROLE 0.5 MG PO SCH (20:05)
[2019-08-19] MEDS: GABAPENTIN 300 MG PO SCH (20:06)
[2019-08-20] MEDS: Acetaminophen 325 MG Tab PO SCH ×4 (04:51→20:47)
[2019-08-20] MEDS: [UNRECOGNIZED DRUG - OTHER] PO SCH (08:59)
[2019-08-20] MEDS: [UNRECOGNIZED DRUG - OTHER] PO SCH (08:59)
[2019-08-20] MEDS: SERTRALINE 100 MG PO SCH (09:00)
[2019-08-20] MEDS: GABAPENTIN 100 MG PO SCH ×2 (09:00→12:55)
[2019-08-20] MEDS: Omeprazole 20 MG Cap.CR PO SCH (09:00)
[2019-08-20] MEDS: Multivitamin, Stress Formula with Zinc Tab PO SCH (09:01)
[2019-08-20] MEDS: Famotidine 20 MG Tab PO SCH (09:01)
[2019-08-20] MEDS: ROPINIROLE 0.5 MG PO SCH (20:46)
[2019-08-20] MEDS: GABAPENTIN 300 MG PO SCH (20:46)
[2019-08-20] MEDS: [UNRECOGNIZED DRUG - OTHER] PO SCH (20:47)
[2019-08-20] MEDS: Melatonin 3 MG Tab PO SCH (20:48)
[2019-08-21] MEDS: Acetaminophen 325 MG Tab PO SCH ×4 (02:00→19:57)
[2019-08-21] MEDS: [UNRECOGNIZED DRUG - OTHER] PO SCH (07:52)
[2019-08-21] MEDS: SERTRALINE 100 MG PO SCH (07:52)
[2019-08-21] MEDS: GABAPENTIN 100 MG PO SCH ×2 (07:52→12:16)
[2019-08-21] MEDS: [UNRECOGNIZED DRUG - OTHER] PO SCH (07:52)
[2019-08-21] MEDS: Omeprazole 20 MG Cap.CR PO SCH (07:52)
[2019-08-21] MEDS: Multivitamin, Stress Formula with Zinc Tab PO SCH (07:53)
[2019-08-21] MEDS: Famotidine 20 MG Tab PO SCH (07:53)
[2019-08-21] MEDS: Ferrous Sulfate 325 MG Tab PO SCH (12:17)
[2019-08-21] MEDS: GABAPENTIN 300 MG PO SCH (19:54)
[2019-08-21] MEDS: Melatonin 3 MG Tab PO SCH (19:55)
[2019-08-21] MEDS: ROPINIROLE 0.5 MG PO SCH (19:57)
[2019-08-21] MEDS: WARFARIN PO SCH (19:57)
[2019-08-22] MEDS: Acetaminophen 325 MG Tab PO SCH ×4 (03:10→20:15)
[2019-08-22] MEDS: Famotidine 20 MG Tab PO SCH (09:12)
[2019-08-22] MEDS: Multivitamin, Stress Formula with Zinc Tab PO SCH (09:13)
[2019-08-22] MEDS: Omeprazole 20 MG Cap.CR PO SCH (09:13)
[2019-08-22] MEDS: [UNRECOGNIZED DRUG - OTHER] PO SCH (09:14)
[2019-08-22] MEDS: GABAPENTIN 100 MG PO SCH ×2 (09:14→12:23)
[2019-08-22] MEDS: [UNRECOGNIZED DRUG - OTHER] PO SCH (09:15)
[2019-08-22] MEDS: SERTRALINE 100 MG PO SCH (09:15)
[2019-08-22] MEDS: Melatonin 3 MG Tab PO SCH (20:15)
[2019-08-22] MEDS: GABAPENTIN 300 MG PO SCH (20:15)
[2019-08-22] MEDS: [UNRECOGNIZED DRUG - OTHER] PO SCH (20:15)
[2019-08-22] MEDS: ROPINIROLE 0.5 MG PO SCH (20:15)
[2019-08-23] MEDS: Acetaminophen 325 MG Tab PO SCH ×4 (02:00→20:26)
[2019-08-23] MEDS: [UNRECOGNIZED DRUG - OTHER] PO SCH (08:13)
[2019-08-23] MEDS: SERTRALINE 100 MG PO SCH (08:14)
[2019-08-23] MEDS: [UNRECOGNIZED DRUG - OTHER] PO SCH (08:14)
[2019-08-23] MEDS: GABAPENTIN 100 MG PO SCH ×2 (08:14→12:05)
[2019-08-23] MEDS: Famotidine 20 MG Tab PO SCH (08:15)
[2019-08-23] MEDS: Multivitamin, Stress Formula with Zinc Tab PO SCH (08:15)
[2019-08-23] MEDS: Omeprazole 20 MG Cap.CR PO SCH (08:15)
[2019-08-23] MEDS: Ferrous Sulfate 325 MG Tab PO SCH (12:04)
[2019-08-23] MEDS: Melatonin 3 MG Tab PO SCH (20:26)
[2019-08-23] MEDS: GABAPENTIN 300 MG PO SCH (20:26)
[2019-08-23] MEDS: [UNRECOGNIZED DRUG - OTHER] PO SCH (20:26)
[2019-08-23] MEDS: ROPINIROLE 0.5 MG PO SCH (20:26)
[2019-08-24] MEDS: Acetaminophen 325 MG Tab PO SCH ×4 (02:15→20:55)
[2019-08-24] MEDS: [UNRECOGNIZED DRUG - OTHER] PO SCH (07:47)
[2019-08-24] MEDS: Multivitamin, Stress Formula with Zinc Tab PO SCH (07:48)
[2019-08-24] MEDS: GABAPENTIN 100 MG PO SCH ×2 (07:48→12:24)
[2019-08-24] MEDS: Omeprazole 20 MG Cap.CR PO SCH (07:48)
[2019-08-24] MEDS: [UNRECOGNIZED DRUG - OTHER] PO SCH (07:48)
[2019-08-24] MEDS: SERTRALINE 100 MG PO SCH (07:48)
[2019-08-24] MEDS: Famotidine 20 MG Tab PO SCH (07:48)
[2019-08-24] MEDS: GABAPENTIN 300 MG PO SCH (20:51)
[2019-08-24] MEDS: ROPINIROLE 0.5 MG PO SCH (20:52)
[2019-08-24] MEDS: [UNRECOGNIZED DRUG - OTHER] PO SCH (20:52)
[2019-08-24] MEDS: Melatonin 3 MG Tab PO SCH (20:55)
[2019-08-25] MEDS: Acetaminophen 325 MG Tab PO SCH ×4 (04:00→20:06)
[2019-08-25] MEDS: SERTRALINE 100 MG PO SCH (08:28)
[2019-08-25] MEDS: Omeprazole 20 MG Cap.CR PO SCH (08:28)
[2019-08-25] MEDS: [UNRECOGNIZED DRUG - OTHER] PO SCH (08:28)
[2019-08-25] MEDS: Famotidine 20 MG Tab PO SCH (08:28)
[2019-08-25] MEDS: [UNRECOGNIZED DRUG - OTHER] PO SCH (08:28)
[2019-08-25] MEDS: GABAPENTIN 100 MG PO SCH ×2 (08:29→12:04)
[2019-08-25] MEDS: Multivitamin, Stress Formula with Zinc Tab PO SCH (08:29)
[2019-08-25] MEDS: Ferrous Sulfate 325 MG Tab PO SCH (12:04)
[2019-08-25] MEDS: GABAPENTIN 300 MG PO SCH (20:06)
[2019-08-25] MEDS: Melatonin 3 MG Tab PO SCH (20:06)
[2019-08-25] MEDS: ROPINIROLE 0.5 MG PO SCH (20:08)
[2019-08-25] MEDS: WARFARIN PO SCH (20:08)
[2019-08-26] MEDS: Acetaminophen 325 MG Tab PO SCH ×4 (02:48→20:06)
[2019-08-26] MEDS: SERTRALINE 100 MG PO SCH (07:58)
[2019-08-26] MEDS: [UNRECOGNIZED DRUG - OTHER] PO SCH (07:58)
[2019-08-26] MEDS: [UNRECOGNIZED DRUG - OTHER] PO SCH (07:58)
[2019-08-26] MEDS: Multivitamin, Stress Formula with Zinc Tab PO SCH (07:59)
[2019-08-26] MEDS: Omeprazole 20 MG Cap.CR PO SCH (07:59)
[2019-08-26] MEDS: GABAPENTIN 100 MG PO SCH ×2 (07:59→12:20)
[2019-08-26] MEDS: Famotidine 20 MG Tab PO SCH (08:00)
[2019-08-26] MEDS: ROPINIROLE 0.5 MG PO SCH (20:05)
[2019-08-26] MEDS: [UNRECOGNIZED DRUG - OTHER] PO SCH (20:05)
[2019-08-26] MEDS: GABAPENTIN 300 MG PO SCH (20:05)
[2019-08-26] MEDS: Melatonin 3 MG Tab PO SCH (20:05)
[2019-08-27] MEDS: Acetaminophen 325 MG Tab PO SCH ×4 (05:10→21:10)
[2019-08-27] MEDS: Famotidine 20 MG Tab PO SCH (07:54)
[2019-08-27] MEDS: Omeprazole 20 MG Cap.CR PO SCH (07:54)
[2019-08-27] MEDS: Multivitamin, Stress Formula with Zinc Tab PO SCH (07:54)
[2019-08-27] MEDS: GABAPENTIN 100 MG PO SCH ×2 (07:54→12:28)
[2019-08-27] MEDS: SERTRALINE 100 MG PO SCH (07:55)
[2019-08-27] MEDS: [UNRECOGNIZED DRUG - OTHER] PO SCH (07:55)
[2019-08-27] MEDS: [UNRECOGNIZED DRUG - OTHER] PO SCH (07:55)
[2019-08-27] MEDS: Ferrous Sulfate 325 MG Tab PO SCH (12:28)
[2019-08-27] MEDS: [UNRECOGNIZED DRUG - OTHER] PO SCH (21:09)
[2019-08-27] MEDS: ROPINIROLE 0.5 MG PO SCH (21:09)
[2019-08-27] MEDS: GABAPENTIN 300 MG PO SCH (21:10)
[2019-08-27] MEDS: Melatonin 3 MG Tab PO SCH (21:10)
[2019-08-28] MEDS: Acetaminophen 325 MG Tab PO SCH ×4 (02:15→20:17)
[2019-08-28] MEDS: Famotidine 20 MG Tab PO SCH (07:49)
[2019-08-28] MEDS: SERTRALINE 100 MG PO SCH (07:49)
[2019-08-28] MEDS: GABAPENTIN 100 MG PO SCH ×2 (07:49→13:13)
[2019-08-28] MEDS: [UNRECOGNIZED DRUG - OTHER] PO SCH (07:49)
[2019-08-28] MEDS: [UNRECOGNIZED DRUG - OTHER] PO SCH (07:49)
[2019-08-28] MEDS: Multivitamin, Stress Formula with Zinc Tab PO SCH (07:49)
[2019-08-28] MEDS: Omeprazole 20 MG Cap.CR PO SCH (07:50)
--- NOTE | 2019-08-28 11:43 | PCM.PN ---
- General Info Date of Service: 08/28/19 Admission Dx/Problem (Free Text): Subjective: Swing bed long-term care note. No real changes in health. Heartburn currently controlled on medicine. No cardiopulmonary symptoms. Anemia appears stable, on long-term anticoagulation for DVT history. Lesion below her right eye she's had for number months just growing slightly. Occasionally will complete her scab little bit. She saw the surgeon was not too interested in removing currently but believe she may want it taken off in the future. Obctive: Physical exam reveals an alert oriented pleasant female no acute distress. Vital signs are stable. Trace edema bilaterally. Heart and lungs are clear. Abdomen soft and tender. Has approximately 3-4 mm exophytic lesion with slight scab just below the right lower lid margin. Assessment and plan: No new changes in her long-term plan. Heartburn appears controlled. Anemia stable. INR for DVT prophylaxis. I think she probably will still need eyelid lesion removed in the next number of months. Perhaps this summer after cold his situation is settled some. Otherwise and she visited with the surgeon last time they decided to observe. Subjective Update: Subjective: Sixty-day long-term care visit. She doing pretty well. Nursing notes frequent heartburn, she's on dual H2 PPI therapy. Still has to take occasional Tums. No dysphasia. Her mild anemia is stable to improved. Denies any melena or hematochezia. She has some mild clinical heart failure, her edema and weight have improved on their own. She does get some dyspnea with exertion. CT chest showed what looks like a mediastinal thyroid mass. Going back this was present decades ago. Incidental 1.5 cm breast mass seen by CT. She is otherwise pretty happy on the floor staying busy reading books etc. Objective: Vital signs are stable. She has nodular lesion with scab about 3 mm in diameter at right lower lid just below lid/lash margin. She feels this is new past couple weeks. Heart and lungs clear to auscultation abdomen soft nontender extremities warm well perfused 1+ edema. Assessment and plan: Chronic dyspnea. Heart failure appears stable, weight is improved. Monitor. She uses oxygen when necessary. 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 Unless she became grossly symptomatic with this thoracotomy would not be recommended at her age and medical condition. Still has some issues with heartburn, can use Tums up to four times daily PRN, okay to continue H2 PPI therapy. Again at her age would not pursue further workup for this unless anemia becoming grossly worse to the point requiring transfusion etc. 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 I would recommend excision of this before it became more invasive. It approaches the lashes and lid margin but is just below it, I think general surgeon here can probably remove this in the clinic, we'll refer outpatient them. Presumption would be that the incidental right breast lesion by CT is indolent If visited with surgeon could discuss with them whether she and they thought mammogram or excision biopsy would be indicated. - Patient Data Vitals - Most Recent: Last Vital Signs Temp 36.3 C 08/28/19 06:00 Pulse 82 08/28/19 07:49 Resp 17 08/26/19 06:00 BP 142/71 H 08/28/19 07:49 Pulse Ox 95 08/23/19 06:00 Weight - Most Recent: 86.273 kg I&O - Last 24 Hours: Intake & Output 08/27/19 08/28/19 08/28/19 22:59 06:59 14:59 Intake Total 180 10 Balance 180 10 Med Orders - Current: Current Medications Acetaminophen (Tylenol) 650 mg PO 0200,0800,1300,2000 [facility] Last Admin: 08/28/19 07:50 Dose: 650 mg Calcium Carbonate/Glycine (Tums Extra Strength) 750 mg PO TID PRN PRN Reason: Dyspepsia Last Admin: 08/08/19 17:48 Dose: 750 mg Docusate Sodium (Colace) 100 mg PO DAILY PRN PRN Reason: Constipation Famotidine (Pepcid) 20 mg PO DAILY [facility] Last Admin: 08/28/19 07:49 Dose: 20 mg Ferrous Sulfate (Ferrous Sulfate) 325 mg PO Q48H [facility] Last Admin: 08/27/19 12:28 Dose: 325 mg Furosemide (Lasix) 20 mg PO DAILY [facility] Last Admin: 08/28/19 07:49 Dose: 20 mg Gabapentin (Neurontin) 100 mg PO BID@0800,1300 [facility] Last Admin: 08/28/19 07:49 Dose: 100 mg Gabapentin (Neurontin) 300 mg PO BEDTIME [facility] Last Admin: 08/27/19 21:10 Dose: 300 mg Loperamide HCl (Imodium) 2 mg PO Q12H PRN PRN Reason: Diarrhea Last Admin: 07/09/19 08:30 Dose: 2 mg Melatonin (Melatonin) 6 mg PO BEDTIME [facility] Last Admin: 08/27/19 21:10 Dose: 6 mg Metoprolol Succinate (Toprol Xl) 25 mg PO DAILY [facility] Last Admin: 08/28/19 07:49 Dose: 25 mg Miconazole (Desenex 2%) 0 gm TOP BID PRN PRN Reason: Rash Last Admin: 03/29/19 08:43 Dose: 1 applic Nitroglycerin (Nitrostat) 0.4 mg SL Q5M PRN PRN Reason: Chest Pain Last Admin: 03/24/19 18:01 Dose: 0.4 mg Omeprazole (Omeprazole) 20 mg PO DAILY [facility] Last Admin: 08/28/19 07:50 Dose: 20 mg Pharmacy Consult (Consult To Pharmacy) 1 each .XX ASDIRECTED [facility] Polyethylene Glycol (Miralax) 17 gm PO DAILY PRN PRN Reason: Constipation Ropinirole HCl (Requip) 0.5 mg PO BEDTIME [facility] Last Admin: 08/27/19 21:09 Dose: 0.5 mg Senna/Docusate Sodium (Senna Plus) 1 tab PO DAILY PRN PRN Reason: Constipation Sertraline HCl (Zoloft) 100 mg PO DAILY [facility] Last Admin: 08/28/19 07:49 Dose: 100 mg Vitamin B Complex/Vit C/Vit E/Zinc (Stress Formula With Zinc) 1 tab PO DAILY [facility] Last Admin: 08/28/19 07:49 Dose: 1 tab Warfarin Sodium (Coumadin) 2.5 mg PO MoTh@1999 [facility] Last Admin: 08/25/19 20:08 Dose: 2.5 mg Warfarin Sodium (Coumadin) 5 mg PO SuTuWeFrSa@1999 [facility] Last Admin: 08/27/19 21:09 Dose: 5 mg Discontinued Medications Furosemide (Lasix) 20 mg PO DAILY [facility] Last Admin: 02/04/19 08:18 Dose: 20 mg Gabapentin (Neurontin) 100 mg PO BID@0800,1300 [facility] Last Admin: 02/04/19 13:48 Dose: 100 mg Influenza Virus Vaccine (Fluzone High-Dose Syringe) 180 mcg IM .ONCE ONE Stop: 02/11/19 14:01 Last Admin: 02/11/19 13:57 Dose: 180 mcg Iopamidol (Isovue-300 (61%)) 100 ml IVPUSH ONETIME ONE Stop: 05/08/19 15:19 Last Admin: 05/08/19 16:33 Dose: 100 ml Miconazole (Desenex 2%) 1 gm TOP BID [facility] Last Admin: 03/26/19 09:20 Dose: Not Given Nitrofurantoin Macrocrystals (Macrobid) 100 mg PO BID [facility] Stop: 03/08/19 20:00 Last Admin: 03/04/19 07:54 Dose: 100 mg Nitrofurantoin Macrocrystals (Macrobid) 100 mg PO BID [facility] Stop: 03/08/19 20:01 Last Admin: 03/08/19 20:34 Dose: 100 mg Own Supply: Warfarin 2.5mg (1/2 Of 5mg Tab) 0 mg PO MoTh@1999 [facility] Last Admin: 02/03/19 19:37 Dose: 2.5 mg Own Supply: Warfarin (. 5mg) 0 mg PO SuTuWeFrSa@1999 [facility] Last Admin: 02/02/19 19:43 Dose: 5 mg Own Supply: (Gabapentin. 300mg) 0 mg PO BEDTIME [facility] Last Admin: 02/03/19 19:36 Dose: 300 mg Own Supply: (Metoprolol.Er 25mg) 0 mg PO DAILY [facility] Last Admin: 02/04/19 08:17 Dose: 25 mg Polyethylene Glycol (Miralax) 17 gm PO DAILY [facility] Last Admin: 12/18/18 08:17 Dose: Not Given Ropinirole HCl (Requip) 0.5 mg PO BEDTIME [facility] Last Admin: 02/03/19 19:37 Dose: 0.5 mg Sertraline HCl (Zoloft) 100 mg PO DAILY [facility] Last Admin: 07/18/19 07:56 Dose: 100 mg Sepsis Event Note - Evaluation Sepsis Screening Result: No Definite Risk - Focused Exam Vital Signs: Vital Signs Temp Pulse BP 08/28/19 07:49 82 142/71 H 08/28/19 06:00 36.3 C Date Exam was Performed: 08/28/19 Time Exam was Performed: 11:38 - Problem List Review Problem List Initiated/Reviewed/Updated: Yes - My Orders Last 24 Hours: My Active Orders 09/19/19 07:00 INR,PT,PROTHROMBIN TIME [COAG] Q28D 10/17/19 07:00 INR,PT,PROTHROMBIN TIME [COAG] Q28D 11/14/19 07:00 INR,PT,PROTHROMBIN TIME [COAG] Q28D 12/12/19 07:00 INR,PT,PROTHROMBIN TIME [COAG] Q28D 01/09/20 07:00 INR,PT,PROTHROMBIN TIME [COAG] Q28D 02/06/20 07:00 INR,PT,PROTHROMBIN TIME [COAG] Q28D 03/05/20 07:00 INR,PT,PROTHROMBIN TIME [COAG] Q28D
[2019-08-28] MEDS: GABAPENTIN 300 MG PO SCH (20:15)
[2019-08-28] MEDS: ROPINIROLE 0.5 MG PO SCH (20:15)
[2019-08-28] MEDS: WARFARIN PO SCH (20:16)
[2019-08-28] MEDS: Melatonin 3 MG Tab PO SCH (20:17)
[2019-08-29] MEDS: Acetaminophen 325 MG Tab PO SCH ×4 (02:15→19:55)
[2019-08-29] MEDS: GABAPENTIN 100 MG PO SCH ×2 (07:40→12:22)
[2019-08-29] MEDS: SERTRALINE 100 MG PO SCH (07:40)
[2019-08-29] MEDS: [UNRECOGNIZED DRUG - OTHER] PO SCH (07:40)
[2019-08-29] MEDS: [UNRECOGNIZED DRUG - OTHER] PO SCH (07:40)
[2019-08-29] MEDS: Omeprazole 20 MG Cap.CR PO SCH (07:41)
[2019-08-29] MEDS: Multivitamin, Stress Formula with Zinc Tab PO SCH (07:42)
[2019-08-29] MEDS: Famotidine 20 MG Tab PO SCH (07:42)
[2019-08-29] MEDS: Ferrous Sulfate 325 MG Tab PO SCH (12:20)
[2019-08-29] MEDS: [UNRECOGNIZED DRUG - OTHER] PO SCH (19:53)
[2019-08-29] MEDS: GABAPENTIN 300 MG PO SCH (19:54)
[2019-08-29] MEDS: ROPINIROLE 0.5 MG PO SCH (19:54)
[2019-08-29] MEDS: Melatonin 3 MG Tab PO SCH (19:55)
[2019-08-30] MEDS: Acetaminophen 325 MG Tab PO SCH ×4 (07:04→19:37)
[2019-08-30] MEDS: SERTRALINE 100 MG PO SCH (07:42)
[2019-08-30] MEDS: [UNRECOGNIZED DRUG - OTHER] PO SCH (07:42)
[2019-08-30] MEDS: GABAPENTIN 100 MG PO SCH ×2 (07:42→12:31)
[2019-08-30] MEDS: [UNRECOGNIZED DRUG - OTHER] PO SCH (07:42)
[2019-08-30] MEDS: Omeprazole 20 MG Cap.CR PO SCH (07:43)
[2019-08-30] MEDS: Famotidine 20 MG Tab PO SCH (07:43)
[2019-08-30] MEDS: Multivitamin, Stress Formula with Zinc Tab PO SCH (07:44)
[2019-08-30] MEDS: GABAPENTIN 300 MG PO SCH (19:35)
[2019-08-30] MEDS: ROPINIROLE 0.5 MG PO SCH (19:35)
[2019-08-30] MEDS: Melatonin 3 MG Tab PO SCH (19:36)
[2019-08-30] MEDS: [UNRECOGNIZED DRUG - OTHER] PO SCH (19:36)
[2019-08-31] MEDS: Acetaminophen 325 MG Tab PO SCH ×4 (03:21→19:46)
[2019-08-31] MEDS: [UNRECOGNIZED DRUG - OTHER] PO SCH (08:43)
[2019-08-31] MEDS: GABAPENTIN 100 MG PO SCH ×2 (08:44→12:21)
[2019-08-31] MEDS: [UNRECOGNIZED DRUG - OTHER] PO SCH (08:44)
[2019-08-31] MEDS: Famotidine 20 MG Tab PO SCH (08:44)
[2019-08-31] MEDS: SERTRALINE 100 MG PO SCH (08:44)
[2019-08-31] MEDS: Omeprazole 20 MG Cap.CR PO SCH (08:44)
[2019-08-31] MEDS: Multivitamin, Stress Formula with Zinc Tab PO SCH (08:45)
[2019-08-31] MEDS: Ferrous Sulfate 325 MG Tab PO SCH (12:20)
[2019-08-31] MEDS: ROPINIROLE 0.5 MG PO SCH (19:45)
[2019-08-31] MEDS: [UNRECOGNIZED DRUG - OTHER] PO SCH (19:46)
[2019-08-31] MEDS: Melatonin 3 MG Tab PO SCH (19:46)
[2019-08-31] MEDS: GABAPENTIN 300 MG PO SCH (19:46)
[2019-09-01] MEDS: Acetaminophen 325 MG Tab PO SCH ×4 (02:23→20:40)
[2019-09-01] MEDS: SERTRALINE 100 MG PO SCH (08:14)
[2019-09-01] MEDS: Famotidine 20 MG Tab PO SCH (08:14)
[2019-09-01] MEDS: Omeprazole 20 MG Cap.CR PO SCH (08:14)
[2019-09-01] MEDS: [UNRECOGNIZED DRUG - OTHER] PO SCH (08:14)
[2019-09-01] MEDS: Multivitamin, Stress Formula with Zinc Tab PO SCH (08:14)
[2019-09-01] MEDS: [UNRECOGNIZED DRUG - OTHER] PO SCH (08:14)
[2019-09-01] MEDS: GABAPENTIN 100 MG PO SCH ×2 (08:14→13:08)
[2019-09-01] MEDS: ROPINIROLE 0.5 MG PO SCH (20:39)
[2019-09-01] MEDS: WARFARIN PO SCH (20:39)
[2019-09-01] MEDS: GABAPENTIN 300 MG PO SCH (20:40)
[2019-09-01] MEDS: Melatonin 3 MG Tab PO SCH (20:40)
[2019-09-02] MEDS: Acetaminophen 325 MG Tab PO SCH ×4 (02:44→20:32)
[2019-09-02] MEDS: [UNRECOGNIZED DRUG - OTHER] PO SCH (08:09)
[2019-09-02] MEDS: [UNRECOGNIZED DRUG - OTHER] PO SCH (08:09)
[2019-09-02] MEDS: GABAPENTIN 100 MG PO SCH ×2 (08:10→13:26)
[2019-09-02] MEDS: SERTRALINE 100 MG PO SCH (08:10)
[2019-09-02] MEDS: Famotidine 20 MG Tab PO SCH (08:11)
[2019-09-02] MEDS: Omeprazole 20 MG Cap.CR PO SCH (08:11)
[2019-09-02] MEDS: Multivitamin, Stress Formula with Zinc Tab PO SCH (08:11)
[2019-09-02] MEDS: Ferrous Sulfate 325 MG Tab PO SCH (11:23)
[2019-09-02] MEDS: Calcium Carbonate 750 MG Tab.Chew PO PRN (13:59)
[2019-09-02] MEDS: [UNRECOGNIZED DRUG - OTHER] PO SCH (20:31)
[2019-09-02] MEDS: GABAPENTIN 300 MG PO SCH (20:32)
[2019-09-02] MEDS: Melatonin 3 MG Tab PO SCH (20:32)
[2019-09-02] MEDS: ROPINIROLE 0.5 MG PO SCH (20:32)
[2019-09-03] MEDS: Acetaminophen 325 MG Tab PO SCH ×4 (02:15→20:07)
[2019-09-03] MEDS: GABAPENTIN 100 MG PO SCH ×2 (08:01→12:51)
[2019-09-03] MEDS: [UNRECOGNIZED DRUG - OTHER] PO SCH (08:01)
[2019-09-03] MEDS: [UNRECOGNIZED DRUG - OTHER] PO SCH (08:01)
[2019-09-03] MEDS: Multivitamin, Stress Formula with Zinc Tab PO SCH (08:02)
[2019-09-03] MEDS: SERTRALINE 100 MG PO SCH (08:02)
[2019-09-03] MEDS: Famotidine 20 MG Tab PO SCH (08:02)
[2019-09-03] MEDS: Omeprazole 20 MG Cap.CR PO SCH (08:02)
[2019-09-03] MEDS: GABAPENTIN 300 MG PO SCH (20:05)
[2019-09-03] MEDS: [UNRECOGNIZED DRUG - OTHER] PO SCH (20:06)
[2019-09-03] MEDS: ROPINIROLE 0.5 MG PO SCH (20:06)
[2019-09-03] MEDS: Melatonin 3 MG Tab PO SCH (20:07)
[2019-09-04] MEDS: Acetaminophen 325 MG Tab PO SCH ×4 (05:02→19:43)
[2019-09-04] MEDS: Omeprazole 20 MG Cap.CR PO SCH (08:13)
[2019-09-04] MEDS: Famotidine 20 MG Tab PO SCH (08:13)
[2019-09-04] MEDS: SERTRALINE 100 MG PO SCH (08:13)
[2019-09-04] MEDS: [UNRECOGNIZED DRUG - OTHER] PO SCH (08:13)
[2019-09-04] MEDS: Multivitamin, Stress Formula with Zinc Tab PO SCH (08:13)
[2019-09-04] MEDS: [UNRECOGNIZED DRUG - OTHER] PO SCH (08:13)
[2019-09-04] MEDS: GABAPENTIN 100 MG PO SCH ×2 (08:14→13:10)
[2019-09-04] MEDS: Ferrous Sulfate 325 MG Tab PO SCH (11:47)
[2019-09-04] MEDS: GABAPENTIN 300 MG PO SCH (19:42)
[2019-09-04] MEDS: WARFARIN PO SCH (19:42)
[2019-09-04] MEDS: ROPINIROLE 0.5 MG PO SCH (19:42)
[2019-09-04] MEDS: Melatonin 3 MG Tab PO SCH (19:43)
[2019-09-05] MEDS: Acetaminophen 325 MG Tab PO SCH ×4 (06:16→21:10)
[2019-09-05] MEDS: Calcium Carbonate 750 MG Tab.Chew PO PRN (07:47)
[2019-09-05] MEDS: [UNRECOGNIZED DRUG - OTHER] PO SCH (07:47)
[2019-09-05] MEDS: SERTRALINE 100 MG PO SCH (07:47)
[2019-09-05] MEDS: [UNRECOGNIZED DRUG - OTHER] PO SCH (07:47)
[2019-09-05] MEDS: Multivitamin, Stress Formula with Zinc Tab PO SCH (07:48)
[2019-09-05] MEDS: Famotidine 20 MG Tab PO SCH (07:48)
[2019-09-05] MEDS: Omeprazole 20 MG Cap.CR PO SCH (07:48)
[2019-09-05] MEDS: GABAPENTIN 100 MG PO SCH ×2 (07:48→12:21)
[2019-09-05] MEDS: ROPINIROLE 0.5 MG PO SCH (21:10)
[2019-09-05] MEDS: Melatonin 3 MG Tab PO SCH (21:10)
[2019-09-05] MEDS: [UNRECOGNIZED DRUG - OTHER] PO SCH (21:10)
[2019-09-05] MEDS: GABAPENTIN 300 MG PO SCH (21:11)
[2019-09-06] MEDS: Acetaminophen 325 MG Tab PO SCH ×4 (03:08→20:23)
[2019-09-06] MEDS: Omeprazole 20 MG Cap.CR PO SCH (08:03)
[2019-09-06] MEDS: SERTRALINE 100 MG PO SCH (08:03)
[2019-09-06] MEDS: Multivitamin, Stress Formula with Zinc Tab PO SCH (08:03)
[2019-09-06] MEDS: Famotidine 20 MG Tab PO SCH (08:03)
[2019-09-06] MEDS: [UNRECOGNIZED DRUG - OTHER] PO SCH (08:03)
[2019-09-06] MEDS: GABAPENTIN 100 MG PO SCH ×2 (08:04→12:27)
[2019-09-06] MEDS: [UNRECOGNIZED DRUG - OTHER] PO SCH (08:04)
[2019-09-06] MEDS: Ferrous Sulfate 325 MG Tab PO SCH (12:26)
[2019-09-06] MEDS: Calcium Carbonate 750 MG Tab.Chew PO PRN ×2 (12:27→20:23)
[2019-09-06] MEDS: [UNRECOGNIZED DRUG - OTHER] PO SCH (20:22)
[2019-09-06] MEDS: ROPINIROLE 0.5 MG PO SCH (20:23)
[2019-09-06] MEDS: GABAPENTIN 300 MG PO SCH (20:23)
[2019-09-06] MEDS: Melatonin 3 MG Tab PO SCH (20:23)
[2019-09-07] MEDS: Acetaminophen 325 MG Tab PO SCH ×4 (02:00→21:36)
[2019-09-07] MEDS: GABAPENTIN 100 MG PO SCH ×2 (07:29→12:14)
[2019-09-07] MEDS: [UNRECOGNIZED DRUG - OTHER] PO SCH (07:29)
[2019-09-07] MEDS: Omeprazole 20 MG Cap.CR PO SCH (07:29)
[2019-09-07] MEDS: Famotidine 20 MG Tab PO SCH (07:29)
[2019-09-07] MEDS: Multivitamin, Stress Formula with Zinc Tab PO SCH (07:30)
[2019-09-07] MEDS: [UNRECOGNIZED DRUG - OTHER] PO SCH (07:30)
[2019-09-07] MEDS: SERTRALINE 100 MG PO SCH (07:30)
[2019-09-07] MEDS: Calcium Carbonate 750 MG Tab.Chew PO PRN (21:36)
[2019-09-07] MEDS: Melatonin 3 MG Tab PO SCH (21:36)
[2019-09-07] MEDS: [UNRECOGNIZED DRUG - OTHER] PO SCH (21:37)
[2019-09-07] MEDS: ROPINIROLE 0.5 MG PO SCH (21:37)
[2019-09-07] MEDS: GABAPENTIN 300 MG PO SCH (21:38)
[2019-09-08] MEDS: Acetaminophen 325 MG Tab PO SCH ×4 (02:12→19:37)
[2019-09-08] MEDS: [UNRECOGNIZED DRUG - OTHER] PO SCH (08:24)
[2019-09-08] MEDS: Famotidine 20 MG Tab PO SCH (08:24)
[2019-09-08] MEDS: Multivitamin, Stress Formula with Zinc Tab PO SCH (08:24)
[2019-09-08] MEDS: Omeprazole 20 MG Cap.CR PO SCH (08:24)
[2019-09-08] MEDS: [UNRECOGNIZED DRUG - OTHER] PO SCH (08:24)
[2019-09-08] MEDS: SERTRALINE 100 MG PO SCH (08:25)
[2019-09-08] MEDS: GABAPENTIN 100 MG PO SCH ×2 (08:25→12:57)
[2019-09-08] MEDS: Ferrous Sulfate 325 MG Tab PO SCH (12:57)
[2019-09-08] MEDS: Calcium Carbonate 750 MG Tab.Chew PO PRN (12:58)
[2019-09-08] MEDS: WARFARIN PO SCH (19:36)
[2019-09-08] MEDS: ROPINIROLE 0.5 MG PO SCH (19:36)
[2019-09-08] MEDS: GABAPENTIN 300 MG PO SCH (19:36)
[2019-09-08] MEDS: Melatonin 3 MG Tab PO SCH (19:37)
[2019-09-09] MEDS: Acetaminophen 325 MG Tab PO SCH ×4 (05:11→20:10)
[2019-09-09] MEDS: SERTRALINE 100 MG PO SCH (07:50)
[2019-09-09] MEDS: [UNRECOGNIZED DRUG - OTHER] PO SCH (07:51)
[2019-09-09] MEDS: [UNRECOGNIZED DRUG - OTHER] PO SCH (07:51)
[2019-09-09] MEDS: GABAPENTIN 100 MG PO SCH ×2 (07:51→12:37)
[2019-09-09] MEDS: Omeprazole 20 MG Cap.CR PO SCH (07:52)
[2019-09-09] MEDS: Famotidine 20 MG Tab PO SCH (07:52)
[2019-09-09] MEDS: Multivitamin, Stress Formula with Zinc Tab PO SCH (07:52)
[2019-09-09] MEDS: GABAPENTIN 300 MG PO SCH (20:09)
[2019-09-09] MEDS: Melatonin 3 MG Tab PO SCH (20:10)
[2019-09-09] MEDS: [UNRECOGNIZED DRUG - OTHER] PO SCH (20:10)
[2019-09-09] MEDS: ROPINIROLE 0.5 MG PO SCH (20:10)
[2019-09-10] MEDS: Acetaminophen 325 MG Tab PO SCH ×4 (06:02→21:06)
[2019-09-10] MEDS: Famotidine 20 MG Tab PO SCH (08:03)
[2019-09-10] MEDS: Omeprazole 20 MG Cap.CR PO SCH (08:05)
[2019-09-10] MEDS: Multivitamin, Stress Formula with Zinc Tab PO SCH (08:06)
[2019-09-10] MEDS: [UNRECOGNIZED DRUG - OTHER] PO SCH (08:07)
[2019-09-10] MEDS: [UNRECOGNIZED DRUG - OTHER] PO SCH (08:08)
[2019-09-10] MEDS: SERTRALINE 100 MG PO SCH (08:08)
[2019-09-10] MEDS: GABAPENTIN 100 MG PO SCH ×2 (08:09→12:30)
[2019-09-10] MEDS: Ferrous Sulfate 325 MG Tab PO SCH (12:20)
[2019-09-10] MEDS: GABAPENTIN 300 MG PO SCH (21:06)
[2019-09-10] MEDS: ROPINIROLE 0.5 MG PO SCH (21:06)
[2019-09-10] MEDS: Melatonin 3 MG Tab PO SCH (21:06)
[2019-09-10] MEDS: [UNRECOGNIZED DRUG - OTHER] PO SCH (21:07)
[2019-09-10] MEDS: Calcium Carbonate 750 MG Tab.Chew PO PRN (21:07)
[2019-09-11] MEDS: Acetaminophen 325 MG Tab PO SCH ×4 (02:51→20:33)
[2019-09-11] MEDS: [UNRECOGNIZED DRUG - OTHER] PO SCH (08:05)
[2019-09-11] MEDS: Multivitamin, Stress Formula with Zinc Tab PO SCH (08:06)
[2019-09-11] MEDS: [UNRECOGNIZED DRUG - OTHER] PO SCH (08:06)
[2019-09-11] MEDS: Omeprazole 20 MG Cap.CR PO SCH (08:06)
[2019-09-11] MEDS: SERTRALINE 100 MG PO SCH (08:06)
[2019-09-11] MEDS: Famotidine 20 MG Tab PO SCH (08:06)
[2019-09-11] MEDS: GABAPENTIN 100 MG PO SCH ×2 (08:07→15:25)
[2019-09-11] MEDS: WARFARIN PO SCH (20:33)
[2019-09-11] MEDS: GABAPENTIN 300 MG PO SCH (20:33)
[2019-09-11] MEDS: ROPINIROLE 0.5 MG PO SCH (20:33)
[2019-09-11] MEDS: Melatonin 3 MG Tab PO SCH (20:33)
[2019-09-11] MEDS: Calcium Carbonate 750 MG Tab.Chew PO PRN (20:34)
[2019-09-12] MEDS: Acetaminophen 325 MG Tab PO SCH ×4 (02:15→19:55)
[2019-09-12] MEDS: Multivitamin, Stress Formula with Zinc Tab PO SCH (07:20)
[2019-09-12] MEDS: Famotidine 20 MG Tab PO SCH (07:20)
[2019-09-12] MEDS: [UNRECOGNIZED DRUG - OTHER] PO SCH (07:21)
[2019-09-12] MEDS: Omeprazole 20 MG Cap.CR PO SCH (07:21)
[2019-09-12] MEDS: [UNRECOGNIZED DRUG - OTHER] PO SCH (07:21)
[2019-09-12] MEDS: GABAPENTIN 100 MG PO SCH ×2 (07:21→13:05)
[2019-09-12] MEDS: SERTRALINE 100 MG PO SCH (07:21)
[2019-09-12] MEDS: Ferrous Sulfate 325 MG Tab PO SCH (13:04)
[2019-09-12] MEDS: ROPINIROLE 0.5 MG PO SCH (19:54)
[2019-09-12] MEDS: GABAPENTIN 300 MG PO SCH (19:55)
[2019-09-12] MEDS: Melatonin 3 MG Tab PO SCH (19:55)
[2019-09-12] MEDS: [UNRECOGNIZED DRUG - OTHER] PO SCH (19:55)
[2019-09-12] MEDS: Calcium Carbonate 750 MG Tab.Chew PO PRN (20:23)
[2019-09-13] MEDS: Acetaminophen 325 MG Tab PO SCH ×4 (03:31→19:54)
[2019-09-13] MEDS: [UNRECOGNIZED DRUG - OTHER] PO SCH (08:01)
[2019-09-13] MEDS: [UNRECOGNIZED DRUG - OTHER] PO SCH (08:01)
[2019-09-13] MEDS: GABAPENTIN 100 MG PO SCH ×2 (08:01→12:19)
[2019-09-13] MEDS: SERTRALINE 100 MG PO SCH (08:01)
[2019-09-13] MEDS: Multivitamin, Stress Formula with Zinc Tab PO SCH (08:02)
[2019-09-13] MEDS: Omeprazole 20 MG Cap.CR PO SCH (08:02)
[2019-09-13] MEDS: Famotidine 20 MG Tab PO SCH (08:02)
[2019-09-13] MEDS: Melatonin 3 MG Tab PO SCH (19:53)
[2019-09-13] MEDS: ROPINIROLE 0.5 MG PO SCH (19:56)
[2019-09-13] MEDS: [UNRECOGNIZED DRUG - OTHER] PO SCH (19:56)
[2019-09-13] MEDS: GABAPENTIN 300 MG PO SCH (19:57)
[2019-09-14] MEDS: Acetaminophen 325 MG Tab PO SCH ×4 (04:59→20:04)
[2019-09-14] MEDS: GABAPENTIN 100 MG PO SCH ×2 (08:05→15:24)
[2019-09-14] MEDS: Multivitamin, Stress Formula with Zinc Tab PO SCH (08:05)
[2019-09-14] MEDS: Omeprazole 20 MG Cap.CR PO SCH (08:05)
[2019-09-14] MEDS: SERTRALINE 100 MG PO SCH (08:05)
[2019-09-14] MEDS: [UNRECOGNIZED DRUG - OTHER] PO SCH (08:05)
[2019-09-14] MEDS: [UNRECOGNIZED DRUG - OTHER] PO SCH (08:05)
[2019-09-14] MEDS: Famotidine 20 MG Tab PO SCH (08:06)
[2019-09-14] MEDS: Ferrous Sulfate 325 MG Tab PO SCH (15:24)
[2019-09-14] MEDS: Melatonin 3 MG Tab PO SCH (20:04)
[2019-09-14] MEDS: GABAPENTIN 300 MG PO SCH (20:04)
[2019-09-14] MEDS: [UNRECOGNIZED DRUG - OTHER] PO SCH (20:06)
[2019-09-14] MEDS: ROPINIROLE 0.5 MG PO SCH (20:06)
[2019-09-15] MEDS: Acetaminophen 325 MG Tab PO SCH ×4 (02:32→21:35)
[2019-09-15] MEDS: GABAPENTIN 100 MG PO SCH ×2 (07:28→14:09)
[2019-09-15] MEDS: SERTRALINE 100 MG PO SCH (07:28)
[2019-09-15] MEDS: [UNRECOGNIZED DRUG - OTHER] PO SCH (07:28)
[2019-09-15] MEDS: [UNRECOGNIZED DRUG - OTHER] PO SCH (07:28)
[2019-09-15] MEDS: Famotidine 20 MG Tab PO SCH (07:29)
[2019-09-15] MEDS: Multivitamin, Stress Formula with Zinc Tab PO SCH (07:29)
[2019-09-15] MEDS: Omeprazole 20 MG Cap.CR PO SCH (07:29)
[2019-09-15] MEDS: ROPINIROLE 0.5 MG PO SCH (21:34)
[2019-09-15] MEDS: WARFARIN PO SCH (21:34)
[2019-09-15] MEDS: Melatonin 3 MG Tab PO SCH (21:34)
[2019-09-15] MEDS: GABAPENTIN 300 MG PO SCH (21:35)
[2019-09-16] MEDS: Acetaminophen 325 MG Tab PO SCH ×4 (07:12→21:00)
[2019-09-16] MEDS: Multivitamin, Stress Formula with Zinc Tab PO SCH (07:23)
[2019-09-16] MEDS: [UNRECOGNIZED DRUG - OTHER] PO SCH (07:23)
[2019-09-16] MEDS: Omeprazole 20 MG Cap.CR PO SCH (07:23)
[2019-09-16] MEDS: Famotidine 20 MG Tab PO SCH (07:23)
[2019-09-16] MEDS: [UNRECOGNIZED DRUG - OTHER] PO SCH (07:23)
[2019-09-16] MEDS: GABAPENTIN 100 MG PO SCH ×2 (07:24→13:50)
[2019-09-16] MEDS: SERTRALINE 100 MG PO SCH (07:24)
[2019-09-16] MEDS: Ferrous Sulfate 325 MG Tab PO SCH (13:51)
[2019-09-16] MEDS: ROPINIROLE 0.5 MG PO SCH ×2 (15:28→21:00)
[2019-09-16] MEDS: [UNRECOGNIZED DRUG - OTHER] PO SCH (21:00)
[2019-09-16] MEDS: GABAPENTIN 300 MG PO SCH (21:00)
[2019-09-16] MEDS: Melatonin 3 MG Tab PO SCH (21:00)
[2019-09-17] MEDS: Acetaminophen 325 MG Tab PO SCH ×4 (05:48→20:50)
[2019-09-17] MEDS: [UNRECOGNIZED DRUG - OTHER] PO SCH (07:56)
[2019-09-17] MEDS: SERTRALINE 100 MG PO SCH (07:57)
[2019-09-17] MEDS: [UNRECOGNIZED DRUG - OTHER] PO SCH (07:57)
[2019-09-17] MEDS: Omeprazole 20 MG Cap.CR PO SCH (07:58)
[2019-09-17] MEDS: Multivitamin, Stress Formula with Zinc Tab PO SCH (07:58)
[2019-09-17] MEDS: Famotidine 20 MG Tab PO SCH (07:58)
[2019-09-17] MEDS: GABAPENTIN 100 MG PO SCH ×2 (08:01→12:22)
[2019-09-17] MEDS: GABAPENTIN 300 MG PO SCH (20:48)
[2019-09-17] MEDS: [UNRECOGNIZED DRUG - OTHER] PO SCH (20:49)
[2019-09-17] MEDS: ROPINIROLE 0.5 MG PO SCH (20:49)
[2019-09-17] MEDS: Melatonin 3 MG Tab PO SCH (20:50)
[2019-09-18] MEDS: Acetaminophen 325 MG Tab PO SCH ×4 (05:50→21:12)
[2019-09-18] MEDS: Multivitamin, Stress Formula with Zinc Tab PO SCH (08:06)
[2019-09-18] MEDS: Omeprazole 20 MG Cap.CR PO SCH (08:06)
[2019-09-18] MEDS: Famotidine 20 MG Tab PO SCH (08:07)
[2019-09-18] MEDS: [UNRECOGNIZED DRUG - OTHER] PO SCH (08:08)
[2019-09-18] MEDS: GABAPENTIN 100 MG PO SCH ×2 (08:08→12:13)
[2019-09-18] MEDS: SERTRALINE 100 MG PO SCH (08:08)
[2019-09-18] MEDS: [UNRECOGNIZED DRUG - OTHER] PO SCH (08:08)
[2019-09-18] MEDS: Ferrous Sulfate 325 MG Tab PO SCH (12:13)
[2019-09-18] MEDS: GABAPENTIN 300 MG PO SCH (21:11)
[2019-09-18] MEDS: WARFARIN PO SCH (21:12)
[2019-09-18] MEDS: Calcium Carbonate 750 MG Tab.Chew PO PRN (21:12)
[2019-09-18] MEDS: Melatonin 3 MG Tab PO SCH (21:12)
[2019-09-18] MEDS: ROPINIROLE 0.5 MG PO SCH (21:12)
[2019-09-19] MEDS: Acetaminophen 325 MG Tab PO SCH ×4 (02:30→21:19)
[2019-09-19] MEDS: Omeprazole 20 MG Cap.CR PO SCH (10:08)
[2019-09-19] MEDS: Famotidine 20 MG Tab PO SCH (10:08)
[2019-09-19] MEDS: [UNRECOGNIZED DRUG - OTHER] PO SCH (10:09)
[2019-09-19] MEDS: [UNRECOGNIZED DRUG - OTHER] PO SCH (10:10)
[2019-09-19] MEDS: SERTRALINE 100 MG PO SCH (10:10)
[2019-09-19] MEDS: Multivitamin, Stress Formula with Zinc Tab PO SCH (10:10)
[2019-09-19] MEDS: GABAPENTIN 100 MG PO SCH ×2 (10:11→13:27)
[2019-09-19] MEDS: Calcium Carbonate 750 MG Tab.Chew PO PRN (13:27)
[2019-09-19] MEDS: [UNRECOGNIZED DRUG - OTHER] PO SCH (21:18)
[2019-09-19] MEDS: Melatonin 3 MG Tab PO SCH (21:18)
[2019-09-19] MEDS: ROPINIROLE 0.5 MG PO SCH (21:19)
[2019-09-19] MEDS: GABAPENTIN 300 MG PO SCH (21:22)
[2019-09-20] MEDS: SERTRALINE 100 MG PO SCH (08:53)
[2019-09-20] MEDS: [UNRECOGNIZED DRUG - OTHER] PO SCH (08:53)
[2019-09-20] MEDS: [UNRECOGNIZED DRUG - OTHER] PO SCH (08:53)
[2019-09-20] MEDS: Calcium Carbonate 750 MG Tab.Chew PO PRN (08:53)
[2019-09-20] MEDS: GABAPENTIN 100 MG PO SCH ×2 (08:53→12:06)
[2019-09-20] MEDS: Acetaminophen 325 MG Tab PO SCH ×4 (08:53→20:21)
[2019-09-20] MEDS: Famotidine 20 MG Tab PO SCH (08:54)
[2019-09-20] MEDS: Multivitamin, Stress Formula with Zinc Tab PO SCH (08:54)
[2019-09-20] MEDS: Omeprazole 20 MG Cap.CR PO SCH (08:54)
[2019-09-20] MEDS: Ferrous Sulfate 325 MG Tab PO SCH (12:06)
[2019-09-20] MEDS: ROPINIROLE 0.5 MG PO SCH (20:20)
[2019-09-20] MEDS: [UNRECOGNIZED DRUG - OTHER] PO SCH (20:20)
[2019-09-20] MEDS: GABAPENTIN 300 MG PO SCH (20:20)
[2019-09-20] MEDS: Melatonin 3 MG Tab PO SCH (20:21)
[2019-09-21] MEDS: Acetaminophen 325 MG Tab PO SCH ×4 (04:39→20:16)
[2019-09-21] MEDS: Multivitamin, Stress Formula with Zinc Tab PO SCH (08:35)
[2019-09-21] MEDS: Omeprazole 20 MG Cap.CR PO SCH (08:36)
[2019-09-21] MEDS: Famotidine 20 MG Tab PO SCH (08:36)
[2019-09-21] MEDS: [UNRECOGNIZED DRUG - OTHER] PO SCH (08:36)
[2019-09-21] MEDS: [UNRECOGNIZED DRUG - OTHER] PO SCH (08:37)
[2019-09-21] MEDS: GABAPENTIN 100 MG PO SCH ×2 (08:37→13:00)
[2019-09-21] MEDS: SERTRALINE 100 MG PO SCH (08:38)
[2019-09-21] MEDS: [UNRECOGNIZED DRUG - OTHER] PO SCH (20:15)
[2019-09-21] MEDS: ROPINIROLE 0.5 MG PO SCH (20:15)
[2019-09-21] MEDS: GABAPENTIN 300 MG PO SCH (20:15)
[2019-09-21] MEDS: Calcium Carbonate 750 MG Tab.Chew PO PRN (20:15)
[2019-09-21] MEDS: Melatonin 3 MG Tab PO SCH (20:17)
[2019-09-22] MEDS: Acetaminophen 325 MG Tab PO SCH ×4 (02:40→20:05)
[2019-09-22] MEDS: Calcium Carbonate 750 MG Tab.Chew PO PRN ×2 (08:06→20:07)
[2019-09-22] MEDS: [UNRECOGNIZED DRUG - OTHER] PO SCH (08:06)
[2019-09-22] MEDS: GABAPENTIN 100 MG PO SCH ×2 (08:06→12:05)
[2019-09-22] MEDS: Omeprazole 20 MG Cap.CR PO SCH (08:07)
[2019-09-22] MEDS: SERTRALINE 100 MG PO SCH (08:07)
[2019-09-22] MEDS: Famotidine 20 MG Tab PO SCH (08:07)
[2019-09-22] MEDS: [UNRECOGNIZED DRUG - OTHER] PO SCH (08:07)
[2019-09-22] MEDS: Multivitamin, Stress Formula with Zinc Tab PO SCH (08:07)
[2019-09-22] MEDS: Ferrous Sulfate 325 MG Tab PO SCH (12:05)
[2019-09-22] MEDS: WARFARIN PO SCH (20:05)
[2019-09-22] MEDS: ROPINIROLE 0.5 MG PO SCH (20:05)
[2019-09-22] MEDS: Melatonin 3 MG Tab PO SCH (20:05)
[2019-09-22] MEDS: GABAPENTIN 300 MG PO SCH (20:07)
[2019-09-23] MEDS: Acetaminophen 325 MG Tab PO SCH ×4 (02:20→20:42)
[2019-09-23] MEDS: GABAPENTIN 100 MG PO SCH ×2 (07:34→12:29)
[2019-09-23] MEDS: Famotidine 20 MG Tab PO SCH (07:34)
[2019-09-23] MEDS: [UNRECOGNIZED DRUG - OTHER] PO SCH (07:35)
[2019-09-23] MEDS: SERTRALINE 100 MG PO SCH (07:35)
[2019-09-23] MEDS: [UNRECOGNIZED DRUG - OTHER] PO SCH (07:35)
[2019-09-23] MEDS: Omeprazole 20 MG Cap.CR PO SCH (07:35)
[2019-09-23] MEDS: Multivitamin, Stress Formula with Zinc Tab PO SCH (07:35)
[2019-09-23] MEDS: [UNRECOGNIZED DRUG - OTHER] PO SCH (20:38)
[2019-09-23] MEDS: ROPINIROLE 0.5 MG PO SCH (20:38)
[2019-09-23] MEDS: GABAPENTIN 300 MG PO SCH (20:43)
[2019-09-23] MEDS: Melatonin 3 MG Tab PO SCH (20:43)
[2019-09-23] MEDS: Calcium Carbonate 750 MG Tab.Chew PO PRN (20:43)
[2019-09-24] MEDS: Acetaminophen 325 MG Tab PO SCH ×4 (02:30→20:01)
[2019-09-24] MEDS: [UNRECOGNIZED DRUG - OTHER] PO SCH (07:39)
[2019-09-24] MEDS: SERTRALINE 100 MG PO SCH (07:39)
[2019-09-24] MEDS: [UNRECOGNIZED DRUG - OTHER] PO SCH (07:39)
[2019-09-24] MEDS: GABAPENTIN 100 MG PO SCH ×2 (07:39→14:08)
[2019-09-24] MEDS: Famotidine 20 MG Tab PO SCH (07:40)
[2019-09-24] MEDS: Omeprazole 20 MG Cap.CR PO SCH (07:41)
[2019-09-24] MEDS: Multivitamin, Stress Formula with Zinc Tab PO SCH (07:41)
[2019-09-24] MEDS: Ferrous Sulfate 325 MG Tab PO SCH (11:56)
[2019-09-24] MEDS: GABAPENTIN 300 MG PO SCH (19:59)
[2019-09-24] MEDS: [UNRECOGNIZED DRUG - OTHER] PO SCH (19:59)
[2019-09-24] MEDS: ROPINIROLE 0.5 MG PO SCH (20:00)
[2019-09-24] MEDS: Melatonin 3 MG Tab PO SCH (20:00)
[2019-09-25] MEDS: Acetaminophen 325 MG Tab PO SCH ×4 (05:52→19:37)
[2019-09-25] MEDS: [UNRECOGNIZED DRUG - OTHER] PO SCH (07:47)
[2019-09-25] MEDS: Famotidine 20 MG Tab PO SCH (07:48)
[2019-09-25] MEDS: SERTRALINE 100 MG PO SCH (07:48)
[2019-09-25] MEDS: Omeprazole 20 MG Cap.CR PO SCH (07:48)
[2019-09-25] MEDS: Multivitamin, Stress Formula with Zinc Tab PO SCH (07:48)
[2019-09-25] MEDS: [UNRECOGNIZED DRUG - OTHER] PO SCH (07:48)
[2019-09-25] MEDS: GABAPENTIN 100 MG PO SCH ×2 (10:25→13:03)
[2019-09-25] MEDS: ROPINIROLE 0.5 MG PO SCH (19:36)
[2019-09-25] MEDS: GABAPENTIN 300 MG PO SCH (19:36)
[2019-09-25] MEDS: Melatonin 3 MG Tab PO SCH (19:37)
[2019-09-25] MEDS: WARFARIN PO SCH (19:37)
[2019-09-26] MEDS: Acetaminophen 325 MG Tab PO SCH ×4 (06:20→21:53)
[2019-09-26] MEDS: Famotidine 20 MG Tab PO SCH (07:32)
[2019-09-26] MEDS: [UNRECOGNIZED DRUG - OTHER] PO SCH (07:32)
[2019-09-26] MEDS: Omeprazole 20 MG Cap.CR PO SCH (07:32)
[2019-09-26] MEDS: [UNRECOGNIZED DRUG - OTHER] PO SCH (07:32)
[2019-09-26] MEDS: SERTRALINE 100 MG PO SCH (07:32)
[2019-09-26] MEDS: Multivitamin, Stress Formula with Zinc Tab PO SCH (07:32)
[2019-09-26] MEDS: GABAPENTIN 100 MG PO SCH ×2 (07:33→12:01)
[2019-09-26] MEDS: Ferrous Sulfate 325 MG Tab PO SCH (12:01)
[2019-09-26] MEDS: GABAPENTIN 300 MG PO SCH (21:51)
[2019-09-26] MEDS: [UNRECOGNIZED DRUG - OTHER] PO SCH (21:52)
[2019-09-26] MEDS: Melatonin 3 MG Tab PO SCH (21:53)
[2019-09-26] MEDS: ROPINIROLE 0.5 MG PO SCH (21:53)
[2019-09-27] MEDS: Acetaminophen 325 MG Tab PO SCH ×4 (07:29→21:39)
[2019-09-27] MEDS: Multivitamin, Stress Formula with Zinc Tab PO SCH (07:29)
[2019-09-27] MEDS: GABAPENTIN 100 MG PO SCH ×2 (07:29→12:17)
[2019-09-27] MEDS: Famotidine 20 MG Tab PO SCH (07:29)
[2019-09-27] MEDS: Omeprazole 20 MG Cap.CR PO SCH (07:29)
[2019-09-27] MEDS: [UNRECOGNIZED DRUG - OTHER] PO SCH (07:29)
[2019-09-27] MEDS: [UNRECOGNIZED DRUG - OTHER] PO SCH (07:30)
[2019-09-27] MEDS: SERTRALINE 100 MG PO SCH (07:30)
[2019-09-27] MEDS: ROPINIROLE 0.5 MG PO SCH (21:37)
[2019-09-27] MEDS: [UNRECOGNIZED DRUG - OTHER] PO SCH (21:38)
[2019-09-27] MEDS: Melatonin 3 MG Tab PO SCH (21:38)
[2019-09-27] MEDS: GABAPENTIN 300 MG PO SCH (21:39)
[2019-09-28] MEDS: Acetaminophen 325 MG Tab PO SCH ×4 (02:00→20:12)
[2019-09-28] MEDS: [UNRECOGNIZED DRUG - OTHER] PO SCH (08:27)
[2019-09-28] MEDS: Omeprazole 20 MG Cap.CR PO SCH (08:27)
[2019-09-28] MEDS: [UNRECOGNIZED DRUG - OTHER] PO SCH (08:27)
[2019-09-28] MEDS: GABAPENTIN 100 MG PO SCH ×2 (08:27→12:50)
[2019-09-28] MEDS: Famotidine 20 MG Tab PO SCH (08:27)
[2019-09-28] MEDS: Multivitamin, Stress Formula with Zinc Tab PO SCH (08:27)
[2019-09-28] MEDS: SERTRALINE 100 MG PO SCH (08:28)
[2019-09-28] MEDS: Ferrous Sulfate 325 MG Tab PO SCH (12:50)
[2019-09-28] MEDS: GABAPENTIN 300 MG PO SCH (20:11)
[2019-09-28] MEDS: Melatonin 3 MG Tab PO SCH (20:12)
[2019-09-28] MEDS: ROPINIROLE 0.5 MG PO SCH (20:13)
[2019-09-28] MEDS: [UNRECOGNIZED DRUG - OTHER] PO SCH (20:14)
[2019-09-29] MEDS: Acetaminophen 325 MG Tab PO SCH ×4 (02:18→20:10)
[2019-09-29] MEDS: SERTRALINE 100 MG PO SCH (07:19)
[2019-09-29] MEDS: Omeprazole 20 MG Cap.CR PO SCH (07:19)
[2019-09-29] MEDS: [UNRECOGNIZED DRUG - OTHER] PO SCH (07:19)
[2019-09-29] MEDS: GABAPENTIN 100 MG PO SCH ×2 (07:19→12:06)
[2019-09-29] MEDS: Multivitamin, Stress Formula with Zinc Tab PO SCH (07:19)
[2019-09-29] MEDS: [UNRECOGNIZED DRUG - OTHER] PO SCH (07:19)
[2019-09-29] MEDS: Famotidine 20 MG Tab PO SCH (07:20)
[2019-09-29] MEDS: Calcium Carbonate 750 MG Tab.Chew PO PRN (12:07)
[2019-09-29] MEDS: WARFARIN PO SCH (20:10)
[2019-09-29] MEDS: GABAPENTIN 300 MG PO SCH (20:10)
[2019-09-29] MEDS: Melatonin 3 MG Tab PO SCH (20:10)
[2019-09-29] MEDS: ROPINIROLE 0.5 MG PO SCH (20:10)
[2019-09-30] MEDS: Acetaminophen 325 MG Tab PO SCH ×4 (06:25→19:25)
[2019-09-30] MEDS: Omeprazole 20 MG Cap.CR PO SCH (08:48)
[2019-09-30] MEDS: GABAPENTIN 100 MG PO SCH ×2 (08:48→13:04)
[2019-09-30] MEDS: SERTRALINE 100 MG PO SCH (08:48)
[2019-09-30] MEDS: [UNRECOGNIZED DRUG - OTHER] PO SCH (08:48)
[2019-09-30] MEDS: Multivitamin, Stress Formula with Zinc Tab PO SCH (08:48)
[2019-09-30] MEDS: [UNRECOGNIZED DRUG - OTHER] PO SCH (08:48)
[2019-09-30] MEDS: Famotidine 20 MG Tab PO SCH (08:49)
[2019-09-30] MEDS: Ferrous Sulfate 325 MG Tab PO SCH (13:04)
[2019-09-30] MEDS: Melatonin 3 MG Tab PO SCH (19:25)
[2019-09-30] MEDS: GABAPENTIN 300 MG PO SCH (19:26)
[2019-09-30] MEDS: [UNRECOGNIZED DRUG - OTHER] PO SCH (19:26)
[2019-09-30] MEDS: ROPINIROLE 0.5 MG PO SCH (19:26)
[2019-10-01] MEDS: Acetaminophen 325 MG Tab PO SCH ×4 (03:18→19:40)
[2019-10-01] MEDS: [UNRECOGNIZED DRUG - OTHER] PO SCH (07:46)
[2019-10-01] MEDS: SERTRALINE 100 MG PO SCH (07:46)
[2019-10-01] MEDS: [UNRECOGNIZED DRUG - OTHER] PO SCH (07:46)
[2019-10-01] MEDS: GABAPENTIN 100 MG PO SCH ×2 (07:46→12:17)
[2019-10-01] MEDS: Omeprazole 20 MG Cap.CR PO SCH (07:47)
[2019-10-01] MEDS: Famotidine 20 MG Tab PO SCH (07:47)
[2019-10-01] MEDS: Multivitamin, Stress Formula with Zinc Tab PO SCH (07:47)
[2019-10-01] MEDS: [UNRECOGNIZED DRUG - OTHER] PO SCH (19:39)
[2019-10-01] MEDS: GABAPENTIN 300 MG PO SCH (19:39)
[2019-10-01] MEDS: ROPINIROLE 0.5 MG PO SCH (19:39)
[2019-10-01] MEDS: Melatonin 3 MG Tab PO SCH (19:40)
[2019-10-02] MEDS: Acetaminophen 325 MG Tab PO SCH ×4 (05:48→19:55)
[2019-10-02] MEDS: [UNRECOGNIZED DRUG - OTHER] PO SCH (07:39)
[2019-10-02] MEDS: GABAPENTIN 100 MG PO SCH ×2 (07:40→13:52)
[2019-10-02] MEDS: SERTRALINE 100 MG PO SCH (07:40)
[2019-10-02] MEDS: [UNRECOGNIZED DRUG - OTHER] PO SCH (07:40)
[2019-10-02] MEDS: Omeprazole 20 MG Cap.CR PO SCH (07:41)
[2019-10-02] MEDS: Multivitamin, Stress Formula with Zinc Tab PO SCH (07:41)
[2019-10-02] MEDS: Famotidine 20 MG Tab PO SCH (07:41)
[2019-10-02] MEDS: Ferrous Sulfate 325 MG Tab PO SCH (10:55)
[2019-10-02] MEDS: Erythromycin Base 0.5% Ophth Oint 3.5 GM Tube EYERT SCH ×2 (16:21→19:57)
[2019-10-02] MEDS: GABAPENTIN 300 MG PO SCH (19:54)
[2019-10-02] MEDS: WARFARIN PO SCH (19:54)
[2019-10-02] MEDS: ROPINIROLE 0.5 MG PO SCH (19:54)
[2019-10-02] MEDS: Melatonin 3 MG Tab PO SCH (19:55)
[2019-10-03] MEDS: Acetaminophen 325 MG Tab PO SCH ×4 (02:51→20:13)
[2019-10-03] MEDS: Multivitamin, Stress Formula with Zinc Tab PO SCH (08:09)
[2019-10-03] MEDS: Omeprazole 20 MG Cap.CR PO SCH (08:09)
[2019-10-03] MEDS: Famotidine 20 MG Tab PO SCH (08:09)
[2019-10-03] MEDS: [UNRECOGNIZED DRUG - OTHER] PO SCH (08:10)
[2019-10-03] MEDS: SERTRALINE 100 MG PO SCH (08:10)
[2019-10-03] MEDS: GABAPENTIN 100 MG PO SCH ×2 (08:10→12:39)
[2019-10-03] MEDS: [UNRECOGNIZED DRUG - OTHER] PO SCH (08:10)
[2019-10-03] MEDS: Erythromycin Base 0.5% Ophth Oint 3.5 GM Tube EYERT SCH ×2 (08:10→20:13)
[2019-10-03] MEDS: Calcium Carbonate 750 MG Tab.Chew PO PRN ×2 (08:11→20:13)
[2019-10-03] MEDS: [UNRECOGNIZED DRUG - OTHER] PO SCH (20:12)
[2019-10-03] MEDS: GABAPENTIN 300 MG PO SCH (20:12)
[2019-10-03] MEDS: ROPINIROLE 0.5 MG PO SCH (20:12)
[2019-10-03] MEDS: Melatonin 3 MG Tab PO SCH (20:13)
[2019-10-04] MEDS: Acetaminophen 325 MG Tab PO SCH ×4 (02:13→20:25)
[2019-10-04] MEDS: Famotidine 20 MG Tab PO SCH (08:40)
[2019-10-04] MEDS: Multivitamin, Stress Formula with Zinc Tab PO SCH (08:40)
[2019-10-04] MEDS: Omeprazole 20 MG Cap.CR PO SCH (08:40)
[2019-10-04] MEDS: Erythromycin Base 0.5% Ophth Oint 3.5 GM Tube EYERT SCH ×2 (08:41→20:26)
[2019-10-04] MEDS: [UNRECOGNIZED DRUG - OTHER] PO SCH (08:41)
[2019-10-04] MEDS: SERTRALINE 100 MG PO SCH (08:41)
[2019-10-04] MEDS: GABAPENTIN 100 MG PO SCH ×2 (08:41→12:51)
[2019-10-04] MEDS: [UNRECOGNIZED DRUG - OTHER] PO SCH (08:41)
[2019-10-04] MEDS: Ferrous Sulfate 325 MG Tab PO SCH (12:51)
[2019-10-04] MEDS: Melatonin 3 MG Tab PO SCH (20:25)
[2019-10-04] MEDS: Calcium Carbonate 750 MG Tab.Chew PO PRN (20:26)
[2019-10-04] MEDS: [UNRECOGNIZED DRUG - OTHER] PO SCH (20:26)
[2019-10-04] MEDS: ROPINIROLE 0.5 MG PO SCH (20:26)
[2019-10-04] MEDS: GABAPENTIN 300 MG PO SCH (20:26)
[2019-10-05] MEDS: Acetaminophen 325 MG Tab PO SCH ×4 (02:15→21:24)
[2019-10-05] MEDS: GABAPENTIN 100 MG PO SCH ×2 (08:43→14:33)
[2019-10-05] MEDS: Omeprazole 20 MG Cap.CR PO SCH (08:43)
[2019-10-05] MEDS: Calcium Carbonate 750 MG Tab.Chew PO PRN (08:43)
[2019-10-05] MEDS: [UNRECOGNIZED DRUG - OTHER] PO SCH (08:43)
[2019-10-05] MEDS: Famotidine 20 MG Tab PO SCH (08:43)
[2019-10-05] MEDS: Multivitamin, Stress Formula with Zinc Tab PO SCH (08:43)
[2019-10-05] MEDS: SERTRALINE 100 MG PO SCH (08:44)
[2019-10-05] MEDS: [UNRECOGNIZED DRUG - OTHER] PO SCH (08:44)
[2019-10-05] MEDS: Erythromycin Base 0.5% Ophth Oint 3.5 GM Tube EYERT SCH ×2 (08:44→21:25)
[2019-10-05] MEDS: ROPINIROLE 0.5 MG PO SCH (21:24)
[2019-10-05] MEDS: GABAPENTIN 300 MG PO SCH (21:24)
[2019-10-05] MEDS: Melatonin 3 MG Tab PO SCH (21:24)
[2019-10-05] MEDS: [UNRECOGNIZED DRUG - OTHER] PO SCH (21:24)
[2019-10-06] MEDS: Acetaminophen 325 MG Tab PO SCH ×4 (03:11→20:39)
[2019-10-06] MEDS: SERTRALINE 100 MG PO SCH (09:02)
[2019-10-06] MEDS: [UNRECOGNIZED DRUG - OTHER] PO SCH (09:02)
[2019-10-06] MEDS: [UNRECOGNIZED DRUG - OTHER] PO SCH (09:02)
[2019-10-06] MEDS: Calcium Carbonate 750 MG Tab.Chew PO PRN ×3 (09:03→20:40)
[2019-10-06] MEDS: GABAPENTIN 100 MG PO SCH ×2 (09:03→12:24)
[2019-10-06] MEDS: Multivitamin, Stress Formula with Zinc Tab PO SCH (09:04)
[2019-10-06] MEDS: Famotidine 20 MG Tab PO SCH (09:04)
[2019-10-06] MEDS: Omeprazole 20 MG Cap.CR PO SCH (09:04)
[2019-10-06] MEDS: Erythromycin Base 0.5% Ophth Oint 3.5 GM Tube EYERT SCH ×2 (09:05→20:42)
[2019-10-06] MEDS: Ferrous Sulfate 325 MG Tab PO SCH (12:24)
[2019-10-06] MEDS: WARFARIN PO SCH (20:39)
[2019-10-06] MEDS: ROPINIROLE 0.5 MG PO SCH (20:40)
[2019-10-06] MEDS: Melatonin 3 MG Tab PO SCH (20:40)
[2019-10-06] MEDS: GABAPENTIN 300 MG PO SCH (20:40)
[2019-10-07] MEDS: Acetaminophen 325 MG Tab PO SCH ×5 (02:07→20:19)
[2019-10-07] MEDS: [UNRECOGNIZED DRUG - OTHER] PO SCH (08:54)
[2019-10-07] MEDS: SERTRALINE 100 MG PO SCH (08:54)
[2019-10-07] MEDS: [UNRECOGNIZED DRUG - OTHER] PO SCH (08:54)
[2019-10-07] MEDS: GABAPENTIN 100 MG PO SCH ×2 (08:55→12:32)
[2019-10-07] MEDS: Omeprazole 20 MG Cap.CR PO SCH (08:56)
[2019-10-07] MEDS: Famotidine 20 MG Tab PO SCH (08:56)
[2019-10-07] MEDS: Multivitamin, Stress Formula with Zinc Tab PO SCH (08:56)
[2019-10-07] MEDS: Erythromycin Base 0.5% Ophth Oint 3.5 GM Tube EYERT SCH ×2 (08:57→20:18)
[2019-10-07] MEDS: ROPINIROLE 0.5 MG PO SCH (20:17)
[2019-10-07] MEDS: Melatonin 3 MG Tab PO SCH (20:18)
[2019-10-07] MEDS: GABAPENTIN 300 MG PO SCH (20:18)
[2019-10-07] MEDS: Calcium Carbonate 750 MG Tab.Chew PO PRN (20:19)
[2019-10-07] MEDS: [UNRECOGNIZED DRUG - OTHER] PO SCH (20:40)
[2019-10-08] MEDS: Acetaminophen 325 MG Tab PO SCH ×4 (02:15→19:32)
[2019-10-08] MEDS: [UNRECOGNIZED DRUG - OTHER] PO SCH (08:44)
[2019-10-08] MEDS: GABAPENTIN 100 MG PO SCH ×2 (08:44→12:30)
[2019-10-08] MEDS: SERTRALINE 100 MG PO SCH (08:44)
[2019-10-08] MEDS: [UNRECOGNIZED DRUG - OTHER] PO SCH (08:45)
[2019-10-08] MEDS: Omeprazole 20 MG Cap.CR PO SCH (08:45)
[2019-10-08] MEDS: Famotidine 20 MG Tab PO SCH (08:45)
[2019-10-08] MEDS: Multivitamin, Stress Formula with Zinc Tab PO SCH (08:45)
[2019-10-08] MEDS: Erythromycin Base 0.5% Ophth Oint 3.5 GM Tube EYERT SCH ×2 (09:12→19:35)
[2019-10-08] MEDS: Ferrous Sulfate 325 MG Tab PO SCH (12:29)
[2019-10-08] MEDS: [UNRECOGNIZED DRUG - OTHER] PO SCH (19:32)
[2019-10-08] MEDS: ROPINIROLE 0.5 MG PO SCH (19:32)
[2019-10-08] MEDS: Melatonin 3 MG Tab PO SCH (19:32)
[2019-10-08] MEDS: GABAPENTIN 300 MG PO SCH (19:34)
[2019-10-09] MEDS: Acetaminophen 325 MG Tab PO SCH ×4 (03:45→20:35)
[2019-10-09] MEDS: [UNRECOGNIZED DRUG - OTHER] PO SCH (08:13)
[2019-10-09] MEDS: Famotidine 20 MG Tab PO SCH (08:14)
[2019-10-09] MEDS: [UNRECOGNIZED DRUG - OTHER] PO SCH (08:14)
[2019-10-09] MEDS: Multivitamin, Stress Formula with Zinc Tab PO SCH (08:14)
[2019-10-09] MEDS: SERTRALINE 100 MG PO SCH (08:14)
[2019-10-09] MEDS: Omeprazole 20 MG Cap.CR PO SCH (08:14)
[2019-10-09] MEDS: GABAPENTIN 100 MG PO SCH ×2 (08:15→12:43)
[2019-10-09] MEDS: WARFARIN PO SCH (20:33)
[2019-10-09] MEDS: GABAPENTIN 300 MG PO SCH (20:34)
[2019-10-09] MEDS: ROPINIROLE 0.5 MG PO SCH (20:34)
[2019-10-09] MEDS: Melatonin 3 MG Tab PO SCH (20:35)
[2019-10-10] MEDS: Acetaminophen 325 MG Tab PO SCH ×4 (03:04→21:05)
[2019-10-10] MEDS: GABAPENTIN 100 MG PO SCH ×2 (08:28→11:59)
[2019-10-10] MEDS: [UNRECOGNIZED DRUG - OTHER] PO SCH (08:29)
[2019-10-10] MEDS: [UNRECOGNIZED DRUG - OTHER] PO SCH (08:29)
[2019-10-10] MEDS: SERTRALINE 100 MG PO SCH (08:29)
[2019-10-10] MEDS: Multivitamin, Stress Formula with Zinc Tab PO SCH (08:30)
[2019-10-10] MEDS: Famotidine 20 MG Tab PO SCH (08:30)
[2019-10-10] MEDS: Omeprazole 20 MG Cap.CR PO SCH (08:30)
[2019-10-10] MEDS: Ferrous Sulfate 325 MG Tab PO SCH (11:58)
[2019-10-10] MEDS: ROPINIROLE 0.5 MG PO SCH (21:04)
[2019-10-10] MEDS: GABAPENTIN 300 MG PO SCH (21:04)
[2019-10-10] MEDS: WARFARIN PO SCH (21:05)
[2019-10-10] MEDS: Melatonin 3 MG Tab PO SCH (21:06)
[2019-10-10] MEDS: [UNRECOGNIZED DRUG - OTHER] PO SCH (21:10)
[2019-10-11] MEDS: Acetaminophen 325 MG Tab PO SCH ×4 (02:35→20:45)
[2019-10-11] MEDS: [UNRECOGNIZED DRUG - OTHER] PO SCH (08:45)
[2019-10-11] MEDS: SERTRALINE 100 MG PO SCH (08:45)
[2019-10-11] MEDS: [UNRECOGNIZED DRUG - OTHER] PO SCH (08:45)
[2019-10-11] MEDS: Omeprazole 20 MG Cap.CR PO SCH (08:45)
[2019-10-11] MEDS: Famotidine 20 MG Tab PO SCH (08:45)
[2019-10-11] MEDS: Multivitamin, Stress Formula with Zinc Tab PO SCH (08:45)
[2019-10-11] MEDS: GABAPENTIN 100 MG PO SCH ×2 (08:45→13:45)
[2019-10-11] MEDS: GABAPENTIN 300 MG PO SCH (20:44)
[2019-10-11] MEDS: [UNRECOGNIZED DRUG - OTHER] PO SCH (20:46)
[2019-10-11] MEDS: ROPINIROLE 0.5 MG PO SCH (20:46)
[2019-10-11] MEDS: Melatonin 3 MG Tab PO SCH (20:46)
--- NOTE | 2019-10-11 21:31 | PCM.SN.2 ---
- Free Text/Narrative Note: Staff requested a UA today I don't see results back yet. Symptoms were weakness by the patient with foul odor and increased incontinence.
[2019-10-12] MEDS: Acetaminophen 325 MG Tab PO SCH ×4 (02:05→20:00)
[2019-10-12] MEDS: Famotidine 20 MG Tab PO SCH (08:06)
[2019-10-12] MEDS: GABAPENTIN 100 MG PO SCH ×2 (08:06→14:13)
[2019-10-12] MEDS: [UNRECOGNIZED DRUG - OTHER] PO SCH (08:06)
[2019-10-12] MEDS: [UNRECOGNIZED DRUG - OTHER] PO SCH (08:06)
[2019-10-12] MEDS: Omeprazole 20 MG Cap.CR PO SCH (08:06)
[2019-10-12] MEDS: SERTRALINE 100 MG PO SCH (08:06)
[2019-10-12] MEDS: Multivitamin, Stress Formula with Zinc Tab PO SCH (08:06)
--- NOTE | 2019-10-12 09:43 | PCM.SN.2 ---
- Free Text/Narrative Note: Bactrim ordered for UTI x 3 days.
[2019-10-12] MEDS: Sulfamethoxazole/Trimethoprim 800-160 MG Tab PO SCH ×2 (10:56→20:00)
[2019-10-12] MEDS: Ferrous Sulfate 325 MG Tab PO SCH (10:56)
[2019-10-12] MEDS: NITROGLYCERIN 0.4 MG SL PRN (11:27)
[2019-10-12] MEDS: GABAPENTIN 300 MG PO SCH (19:58)
[2019-10-12] MEDS: Melatonin 3 MG Tab PO SCH (19:59)
[2019-10-12] MEDS: ROPINIROLE 0.5 MG PO SCH (20:00)
[2019-10-12] MEDS: [UNRECOGNIZED DRUG - OTHER] PO SCH (20:00)
[2019-10-13] MEDS: Acetaminophen 325 MG Tab PO SCH ×4 (02:33→20:19)
[2019-10-13] MEDS: [UNRECOGNIZED DRUG - OTHER] PO SCH (08:27)
[2019-10-13] MEDS: Omeprazole 20 MG Cap.CR PO SCH (08:28)
[2019-10-13] MEDS: Multivitamin, Stress Formula with Zinc Tab PO SCH (08:28)
[2019-10-13] MEDS: [UNRECOGNIZED DRUG - OTHER] PO SCH (08:28)
[2019-10-13] MEDS: SERTRALINE 100 MG PO SCH (08:28)
[2019-10-13] MEDS: Sulfamethoxazole/Trimethoprim 800-160 MG Tab PO SCH ×2 (08:28→20:20)
[2019-10-13] MEDS: GABAPENTIN 100 MG PO SCH ×2 (08:28→13:34)
[2019-10-13] MEDS: Famotidine 20 MG Tab PO SCH (08:28)
[2019-10-13] MEDS: Calcium Carbonate 750 MG Tab.Chew PO PRN (20:18)
[2019-10-13] MEDS: GABAPENTIN 300 MG PO SCH (20:18)
[2019-10-13] MEDS: Melatonin 3 MG Tab PO SCH (20:19)
[2019-10-13] MEDS: WARFARIN PO SCH (20:20)
[2019-10-13] MEDS: ROPINIROLE 0.5 MG PO SCH (20:20)
[2019-10-14] MEDS: Acetaminophen 325 MG Tab PO SCH ×4 (03:04→19:52)
[2019-10-14] MEDS: SERTRALINE 100 MG PO SCH (09:17)
[2019-10-14] MEDS: Sulfamethoxazole/Trimethoprim 800-160 MG Tab PO SCH ×2 (09:17→20:04)
[2019-10-14] MEDS: GABAPENTIN 100 MG PO SCH ×2 (09:17→13:22)
[2019-10-14] MEDS: [UNRECOGNIZED DRUG - OTHER] PO SCH (09:18)
[2019-10-14] MEDS: Omeprazole 20 MG Cap.CR PO SCH (09:19)
[2019-10-14] MEDS: Multivitamin, Stress Formula with Zinc Tab PO SCH (09:19)
[2019-10-14] MEDS: Famotidine 20 MG Tab PO SCH (09:19)
[2019-10-14] MEDS: [UNRECOGNIZED DRUG - OTHER] PO SCH (09:21)
[2019-10-14] MEDS: Ferrous Sulfate 325 MG Tab PO SCH (13:21)
[2019-10-14] MEDS: GABAPENTIN 300 MG PO SCH (19:51)
[2019-10-14] MEDS: Melatonin 3 MG Tab PO SCH (19:51)
[2019-10-14] MEDS: [UNRECOGNIZED DRUG - OTHER] PO SCH (19:52)
[2019-10-14] MEDS: ROPINIROLE 0.5 MG PO SCH (19:53)
[2019-10-15] MEDS: Acetaminophen 325 MG Tab PO SCH ×4 (01:28→21:55)
[2019-10-15] MEDS: GABAPENTIN 100 MG PO SCH ×2 (07:52→14:37)
[2019-10-15] MEDS: Famotidine 20 MG Tab PO SCH (07:53)
[2019-10-15] MEDS: Omeprazole 20 MG Cap.CR PO SCH (07:53)
[2019-10-15] MEDS: SERTRALINE 100 MG PO SCH (07:53)
[2019-10-15] MEDS: [UNRECOGNIZED DRUG - OTHER] PO SCH (07:53)
[2019-10-15] MEDS: Multivitamin, Stress Formula with Zinc Tab PO SCH (07:53)
[2019-10-15] MEDS: Calcium Carbonate 750 MG Tab.Chew PO PRN ×2 (07:56→09:35)
[2019-10-15] MEDS: [UNRECOGNIZED DRUG - OTHER] PO SCH (07:57)
[2019-10-15] MEDS: GABAPENTIN 300 MG PO SCH (21:50)
[2019-10-15] MEDS: [UNRECOGNIZED DRUG - OTHER] PO SCH (21:51)
[2019-10-15] MEDS: ROPINIROLE 0.5 MG PO SCH (21:51)
[2019-10-15] MEDS: Melatonin 3 MG Tab PO SCH (21:54)
[2019-10-16] MEDS: Acetaminophen 325 MG Tab PO SCH ×4 (06:13→21:38)
[2019-10-16] MEDS: GABAPENTIN 100 MG PO SCH ×2 (07:47→13:06)
[2019-10-16] MEDS: [UNRECOGNIZED DRUG - OTHER] PO SCH (07:56)
[2019-10-16] MEDS: SERTRALINE 100 MG PO SCH (07:56)
[2019-10-16] MEDS: [UNRECOGNIZED DRUG - OTHER] PO SCH (07:57)
[2019-10-16] MEDS: Calcium Carbonate 750 MG Tab.Chew PO PRN ×2 (07:58→18:37)
[2019-10-16] MEDS: Multivitamin, Stress Formula with Zinc Tab PO SCH (07:59)
[2019-10-16] MEDS: Omeprazole 20 MG Cap.CR PO SCH (07:59)
[2019-10-16] MEDS: Famotidine 20 MG Tab PO SCH (07:59)
[2019-10-16] MEDS: Ferrous Sulfate 325 MG Tab PO SCH (11:16)
[2019-10-16] MEDS: GABAPENTIN 300 MG PO SCH (21:37)
[2019-10-16] MEDS: Melatonin 3 MG Tab PO SCH (21:38)
[2019-10-16] MEDS: WARFARIN PO SCH (21:38)
[2019-10-16] MEDS: ROPINIROLE 0.5 MG PO SCH (21:38)
[2019-10-17] MEDS: GABAPENTIN 100 MG PO SCH ×2 (07:52→14:17)
[2019-10-17] MEDS: Acetaminophen 325 MG Tab PO SCH ×4 (07:52→19:41)
[2019-10-17] MEDS: [UNRECOGNIZED DRUG - OTHER] PO SCH (07:53)
[2019-10-17] MEDS: [UNRECOGNIZED DRUG - OTHER] PO SCH (07:56)
[2019-10-17] MEDS: SERTRALINE 100 MG PO SCH (07:56)
[2019-10-17] MEDS: Omeprazole 20 MG Cap.CR PO SCH (08:02)
[2019-10-17] MEDS: Multivitamin, Stress Formula with Zinc Tab PO SCH (08:02)
[2019-10-17] MEDS: Famotidine 20 MG Tab PO SCH (08:02)
[2019-10-17] MEDS: GABAPENTIN 300 MG PO SCH (19:41)
[2019-10-17] MEDS: Melatonin 3 MG Tab PO SCH (19:41)
[2019-10-17] MEDS: ROPINIROLE 0.5 MG PO SCH (19:42)
[2019-10-17] MEDS: [UNRECOGNIZED DRUG - OTHER] PO SCH (19:42)
[2019-10-18] MEDS: Acetaminophen 325 MG Tab PO SCH ×4 (03:02→19:41)
[2019-10-18] MEDS: SERTRALINE 100 MG PO SCH (07:35)
[2019-10-18] MEDS: [UNRECOGNIZED DRUG - OTHER] PO SCH (07:35)
[2019-10-18] MEDS: [UNRECOGNIZED DRUG - OTHER] PO SCH (07:35)
[2019-10-18] MEDS: Multivitamin, Stress Formula with Zinc Tab PO SCH (07:36)
[2019-10-18] MEDS: GABAPENTIN 100 MG PO SCH ×2 (07:36→13:21)
[2019-10-18] MEDS: Famotidine 20 MG Tab PO SCH (07:36)
[2019-10-18] MEDS: Omeprazole 20 MG Cap.CR PO SCH (07:36)
[2019-10-18] MEDS: Ferrous Sulfate 325 MG Tab PO SCH (13:22)
[2019-10-18] MEDS: Melatonin 3 MG Tab PO SCH (19:41)
[2019-10-18] MEDS: GABAPENTIN 300 MG PO SCH (19:41)
[2019-10-18] MEDS: [UNRECOGNIZED DRUG - OTHER] PO SCH (19:42)
[2019-10-18] MEDS: ROPINIROLE 0.5 MG PO SCH (19:42)
[2019-10-19] MEDS: Acetaminophen 325 MG Tab PO SCH ×4 (04:38→19:43)
[2019-10-19] MEDS: Omeprazole 20 MG Cap.CR PO SCH (07:38)
[2019-10-19] MEDS: Multivitamin, Stress Formula with Zinc Tab PO SCH (07:38)
[2019-10-19] MEDS: Famotidine 20 MG Tab PO SCH (07:38)
[2019-10-19] MEDS: [UNRECOGNIZED DRUG - OTHER] PO SCH (07:40)
[2019-10-19] MEDS: [UNRECOGNIZED DRUG - OTHER] PO SCH (07:40)
[2019-10-19] MEDS: SERTRALINE 100 MG PO SCH (07:40)
[2019-10-19] MEDS: GABAPENTIN 100 MG PO SCH ×2 (07:40→12:20)
[2019-10-19] MEDS: [UNRECOGNIZED DRUG - OTHER] PO SCH (19:42)
[2019-10-19] MEDS: GABAPENTIN 300 MG PO SCH (19:42)
[2019-10-19] MEDS: ROPINIROLE 0.5 MG PO SCH (19:42)
[2019-10-19] MEDS: Melatonin 3 MG Tab PO SCH (19:44)
[2019-10-20] MEDS: Acetaminophen 325 MG Tab PO SCH ×4 (04:04→21:00)
[2019-10-20] MEDS: GABAPENTIN 100 MG PO SCH ×2 (08:42→12:33)
[2019-10-20] MEDS: SERTRALINE 100 MG PO SCH (08:42)
[2019-10-20] MEDS: Multivitamin, Stress Formula with Zinc Tab PO SCH (08:42)
[2019-10-20] MEDS: Famotidine 20 MG Tab PO SCH (08:42)
[2019-10-20] MEDS: Omeprazole 20 MG Cap.CR PO SCH (08:42)
[2019-10-20] MEDS: [UNRECOGNIZED DRUG - OTHER] PO SCH (08:43)
[2019-10-20] MEDS: [UNRECOGNIZED DRUG - OTHER] PO SCH (08:44)
[2019-10-20] MEDS: Ferrous Sulfate 325 MG Tab PO SCH (12:33)
[2019-10-20] MEDS: Melatonin 3 MG Tab PO SCH (20:59)
[2019-10-20] MEDS: ROPINIROLE 0.5 MG PO SCH (20:59)
[2019-10-20] MEDS: WARFARIN PO SCH (20:59)
[2019-10-20] MEDS: GABAPENTIN 300 MG PO SCH (20:59)
[2019-10-21] MEDS: Acetaminophen 325 MG Tab PO SCH ×4 (05:56→19:50)
[2019-10-21] MEDS: Multivitamin, Stress Formula with Zinc Tab PO SCH (07:58)
[2019-10-21] MEDS: Famotidine 20 MG Tab PO SCH (07:58)
[2019-10-21] MEDS: Omeprazole 20 MG Cap.CR PO SCH (07:59)
[2019-10-21] MEDS: [UNRECOGNIZED DRUG - OTHER] PO SCH (07:59)
[2019-10-21] MEDS: SERTRALINE 100 MG PO SCH (08:04)
[2019-10-21] MEDS: GABAPENTIN 100 MG PO SCH ×2 (08:04→12:17)
[2019-10-21] MEDS: [UNRECOGNIZED DRUG - OTHER] PO SCH (08:04)
[2019-10-21] MEDS: Calcium Carbonate 750 MG Tab.Chew PO PRN (12:18)
[2019-10-21] MEDS: [UNRECOGNIZED DRUG - OTHER] PO SCH (19:49)
[2019-10-21] MEDS: GABAPENTIN 300 MG PO SCH (19:49)
[2019-10-21] MEDS: ROPINIROLE 0.5 MG PO SCH (19:50)
[2019-10-21] MEDS: Melatonin 3 MG Tab PO SCH (19:50)
[2019-10-22] MEDS: Acetaminophen 325 MG Tab PO SCH ×4 (05:40→19:51)
[2019-10-22] MEDS: Multivitamin, Stress Formula with Zinc Tab PO SCH (07:37)
[2019-10-22] MEDS: Famotidine 20 MG Tab PO SCH (07:37)
[2019-10-22] MEDS: GABAPENTIN 100 MG PO SCH ×2 (07:37→12:11)
[2019-10-22] MEDS: Omeprazole 20 MG Cap.CR PO SCH (07:37)
[2019-10-22] MEDS: [UNRECOGNIZED DRUG - OTHER] PO SCH (07:38)
[2019-10-22] MEDS: [UNRECOGNIZED DRUG - OTHER] PO SCH (07:38)
[2019-10-22] MEDS: SERTRALINE 100 MG PO SCH (07:38)
[2019-10-22] MEDS: Ferrous Sulfate 325 MG Tab PO SCH (12:11)
[2019-10-22] MEDS: GABAPENTIN 300 MG PO SCH (19:50)
[2019-10-22] MEDS: [UNRECOGNIZED DRUG - OTHER] PO SCH (19:50)
[2019-10-22] MEDS: ROPINIROLE 0.5 MG PO SCH (19:50)
[2019-10-22] MEDS: Melatonin 3 MG Tab PO SCH (19:51)
[2019-10-23] MEDS: Acetaminophen 325 MG Tab PO SCH ×4 (05:07→20:16)
[2019-10-23] MEDS: Famotidine 20 MG Tab PO SCH (07:43)
[2019-10-23] MEDS: Omeprazole 20 MG Cap.CR PO SCH (07:43)
[2019-10-23] MEDS: Multivitamin, Stress Formula with Zinc Tab PO SCH (07:43)
[2019-10-23] MEDS: GABAPENTIN 100 MG PO SCH ×2 (07:43→12:15)
[2019-10-23] MEDS: [UNRECOGNIZED DRUG - OTHER] PO SCH (07:44)
[2019-10-23] MEDS: SERTRALINE 100 MG PO SCH (07:44)
[2019-10-23] MEDS: [UNRECOGNIZED DRUG - OTHER] PO SCH (07:44)
[2019-10-23] MEDS: GABAPENTIN 300 MG PO SCH (20:14)
[2019-10-23] MEDS: WARFARIN PO SCH (20:15)
[2019-10-23] MEDS: ROPINIROLE 0.5 MG PO SCH (20:15)
[2019-10-23] MEDS: Calcium Carbonate 750 MG Tab.Chew PO PRN (20:16)
[2019-10-23] MEDS: Melatonin 3 MG Tab PO SCH (20:17)
[2019-10-24] MEDS: Acetaminophen 325 MG Tab PO SCH ×4 (04:06→20:38)
[2019-10-24] MEDS: GABAPENTIN 100 MG PO SCH ×2 (09:01→12:30)
[2019-10-24] MEDS: Omeprazole 20 MG Cap.CR PO SCH (09:02)
[2019-10-24] MEDS: SERTRALINE 100 MG PO SCH (09:02)
[2019-10-24] MEDS: Famotidine 20 MG Tab PO SCH (09:02)
[2019-10-24] MEDS: Multivitamin, Stress Formula with Zinc Tab PO SCH (09:02)
[2019-10-24] MEDS: [UNRECOGNIZED DRUG - OTHER] PO SCH (09:02)
[2019-10-24] MEDS: [UNRECOGNIZED DRUG - OTHER] PO SCH (09:02)
[2019-10-24] MEDS: Ferrous Sulfate 325 MG Tab PO SCH (11:26)
[2019-10-24] MEDS: GABAPENTIN 300 MG PO SCH (20:36)
[2019-10-24] MEDS: [UNRECOGNIZED DRUG - OTHER] PO SCH (20:38)
[2019-10-24] MEDS: Calcium Carbonate 750 MG Tab.Chew PO PRN (20:38)
[2019-10-24] MEDS: Melatonin 3 MG Tab PO SCH (20:38)
[2019-10-24] MEDS: ROPINIROLE 0.5 MG PO SCH (20:39)
[2019-10-25] MEDS: Acetaminophen 325 MG Tab PO SCH ×4 (04:58→19:53)
[2019-10-25] MEDS: [UNRECOGNIZED DRUG - OTHER] PO SCH (08:10)
[2019-10-25] MEDS: GABAPENTIN 100 MG PO SCH ×2 (08:10→13:01)
[2019-10-25] MEDS: SERTRALINE 100 MG PO SCH (08:10)
[2019-10-25] MEDS: [UNRECOGNIZED DRUG - OTHER] PO SCH (08:10)
[2019-10-25] MEDS: Calcium Carbonate 750 MG Tab.Chew PO PRN ×2 (08:11→19:52)
[2019-10-25] MEDS: Multivitamin, Stress Formula with Zinc Tab PO SCH (08:11)
[2019-10-25] MEDS: Omeprazole 20 MG Cap.CR PO SCH (08:11)
[2019-10-25] MEDS: Famotidine 20 MG Tab PO SCH (08:11)
[2019-10-25] MEDS: GABAPENTIN 300 MG PO SCH (19:52)
[2019-10-25] MEDS: [UNRECOGNIZED DRUG - OTHER] PO SCH (19:53)
[2019-10-25] MEDS: ROPINIROLE 0.5 MG PO SCH (19:53)
[2019-10-25] MEDS: Melatonin 3 MG Tab PO SCH (19:53)
[2019-10-26] MEDS: Acetaminophen 325 MG Tab PO SCH ×4 (06:10→20:32)
[2019-10-26] MEDS: Famotidine 20 MG Tab PO SCH (08:27)
[2019-10-26] MEDS: Omeprazole 20 MG Cap.CR PO SCH (08:27)
[2019-10-26] MEDS: Multivitamin, Stress Formula with Zinc Tab PO SCH (08:27)
[2019-10-26] MEDS: [UNRECOGNIZED DRUG - OTHER] PO SCH (08:28)
[2019-10-26] MEDS: GABAPENTIN 100 MG PO SCH ×2 (08:28→13:06)
[2019-10-26] MEDS: SERTRALINE 100 MG PO SCH (08:28)
[2019-10-26] MEDS: [UNRECOGNIZED DRUG - OTHER] PO SCH (08:29)
[2019-10-26] MEDS: Ferrous Sulfate 325 MG Tab PO SCH (13:06)
[2019-10-26] MEDS: GABAPENTIN 300 MG PO SCH (20:31)
[2019-10-26] MEDS: [UNRECOGNIZED DRUG - OTHER] PO SCH (20:32)
[2019-10-26] MEDS: ROPINIROLE 0.5 MG PO SCH (20:32)
[2019-10-26] MEDS: Melatonin 3 MG Tab PO SCH (20:32)
[2019-10-27] MEDS: Acetaminophen 325 MG Tab PO SCH ×4 (05:19→20:14)
[2019-10-27] MEDS: SERTRALINE 100 MG PO SCH (08:16)
[2019-10-27] MEDS: [UNRECOGNIZED DRUG - OTHER] PO SCH (08:16)
[2019-10-27] MEDS: [UNRECOGNIZED DRUG - OTHER] PO SCH (08:17)
[2019-10-27] MEDS: Omeprazole 20 MG Cap.CR PO SCH (08:21)
[2019-10-27] MEDS: Famotidine 20 MG Tab PO SCH (08:21)
[2019-10-27] MEDS: Multivitamin, Stress Formula with Zinc Tab PO SCH (08:22)
[2019-10-27] MEDS: GABAPENTIN 100 MG PO SCH ×2 (08:22→13:18)
[2019-10-27] MEDS: Calcium Carbonate 750 MG Tab.Chew PO PRN (08:23)
[2019-10-27] MEDS: ROPINIROLE 0.5 MG PO SCH (20:13)
[2019-10-27] MEDS: GABAPENTIN 300 MG PO SCH (20:13)
[2019-10-27] MEDS: WARFARIN PO SCH (20:13)
[2019-10-27] MEDS: Melatonin 3 MG Tab PO SCH (20:14)
[2019-10-28] MEDS: Acetaminophen 325 MG Tab PO SCH ×4 (05:26→21:40)
[2019-10-28] MEDS: Multivitamin, Stress Formula with Zinc Tab PO SCH (07:46)
[2019-10-28] MEDS: Omeprazole 20 MG Cap.CR PO SCH (07:46)
[2019-10-28] MEDS: Famotidine 20 MG Tab PO SCH (07:46)
[2019-10-28] MEDS: SERTRALINE 100 MG PO SCH (07:49)
[2019-10-28] MEDS: [UNRECOGNIZED DRUG - OTHER] PO SCH (07:49)
[2019-10-28] MEDS: Calcium Carbonate 750 MG Tab.Chew PO PRN (07:50)
[2019-10-28] MEDS: GABAPENTIN 100 MG PO SCH ×2 (07:52→13:34)
[2019-10-28] MEDS: [UNRECOGNIZED DRUG - OTHER] PO SCH (07:54)
[2019-10-28] MEDS: Ferrous Sulfate 325 MG Tab PO SCH (13:03)
[2019-10-28] MEDS: GABAPENTIN 300 MG PO SCH (21:38)
[2019-10-28] MEDS: [UNRECOGNIZED DRUG - OTHER] PO SCH (21:39)
[2019-10-28] MEDS: ROPINIROLE 0.5 MG PO SCH (21:39)
[2019-10-28] MEDS: Melatonin 3 MG Tab PO SCH (21:40)
[2019-10-29] MEDS: Acetaminophen 325 MG Tab PO SCH ×4 (03:26→21:08)
[2019-10-29] MEDS: Famotidine 20 MG Tab PO SCH (08:46)
[2019-10-29] MEDS: Omeprazole 20 MG Cap.CR PO SCH (08:46)
[2019-10-29] MEDS: Multivitamin, Stress Formula with Zinc Tab PO SCH (08:46)
[2019-10-29] MEDS: GABAPENTIN 100 MG PO SCH ×2 (08:49→12:36)
[2019-10-29] MEDS: SERTRALINE 100 MG PO SCH (08:50)
[2019-10-29] MEDS: [UNRECOGNIZED DRUG - OTHER] PO SCH (08:50)
[2019-10-29] MEDS: [UNRECOGNIZED DRUG - OTHER] PO SCH (08:50)
[2019-10-29] MEDS: [UNRECOGNIZED DRUG - OTHER] PO SCH (21:07)
[2019-10-29] MEDS: ROPINIROLE 0.5 MG PO SCH (21:07)
[2019-10-29] MEDS: Melatonin 3 MG Tab PO SCH (21:07)
[2019-10-29] MEDS: GABAPENTIN 300 MG PO SCH (21:07)
[2019-10-30] MEDS: Acetaminophen 325 MG Tab PO SCH ×4 (02:00→20:33)
[2019-10-30] MEDS: SERTRALINE 100 MG PO SCH (08:42)
[2019-10-30] MEDS: [UNRECOGNIZED DRUG - OTHER] PO SCH (08:42)
[2019-10-30] MEDS: GABAPENTIN 100 MG PO SCH ×2 (08:42→13:05)
[2019-10-30] MEDS: [UNRECOGNIZED DRUG - OTHER] PO SCH (08:42)
[2019-10-30] MEDS: Multivitamin, Stress Formula with Zinc Tab PO SCH (08:43)
[2019-10-30] MEDS: Omeprazole 20 MG Cap.CR PO SCH (08:43)
[2019-10-30] MEDS: Famotidine 20 MG Tab PO SCH (08:43)
[2019-10-30] MEDS: Ferrous Sulfate 325 MG Tab PO SCH (13:05)
[2019-10-30] MEDS: Melatonin 3 MG Tab PO SCH (20:32)
[2019-10-30] MEDS: WARFARIN PO SCH (20:32)
[2019-10-30] MEDS: GABAPENTIN 300 MG PO SCH (20:32)
[2019-10-30] MEDS: ROPINIROLE 0.5 MG PO SCH (20:32)
[2019-10-31] MEDS: Acetaminophen 325 MG Tab PO SCH ×4 (06:08→19:57)
[2019-10-31] MEDS: Omeprazole 20 MG Cap.CR PO SCH (08:35)
[2019-10-31] MEDS: Famotidine 20 MG Tab PO SCH (08:35)
[2019-10-31] MEDS: Multivitamin, Stress Formula with Zinc Tab PO SCH (08:35)
[2019-10-31] MEDS: SERTRALINE 100 MG PO SCH (08:38)
[2019-10-31] MEDS: [UNRECOGNIZED DRUG - OTHER] PO SCH (08:38)
[2019-10-31] MEDS: [UNRECOGNIZED DRUG - OTHER] PO SCH (08:38)
[2019-10-31] MEDS: GABAPENTIN 100 MG PO SCH ×2 (08:39→12:27)
[2019-10-31] MEDS: Calcium Carbonate 750 MG Tab.Chew PO PRN ×2 (08:44→20:00)
[2019-10-31] MEDS: Melatonin 3 MG Tab PO SCH (19:57)
[2019-10-31] MEDS: GABAPENTIN 300 MG PO SCH (19:58)
[2019-10-31] MEDS: [UNRECOGNIZED DRUG - OTHER] PO SCH (19:59)
[2019-10-31] MEDS: ROPINIROLE 0.5 MG PO SCH (19:59)
[2019-11-01] MEDS: Acetaminophen 325 MG Tab PO SCH ×4 (06:11→20:34)
[2019-11-01] MEDS: Famotidine 20 MG Tab PO SCH (07:57)
[2019-11-01] MEDS: Omeprazole 20 MG Cap.CR PO SCH (07:58)
[2019-11-01] MEDS: Multivitamin, Stress Formula with Zinc Tab PO SCH (07:58)
[2019-11-01] MEDS: [UNRECOGNIZED DRUG - OTHER] PO SCH (07:58)
[2019-11-01] MEDS: GABAPENTIN 100 MG PO SCH ×2 (08:04→12:18)
[2019-11-01] MEDS: [UNRECOGNIZED DRUG - OTHER] PO SCH (08:06)
[2019-11-01] MEDS: SERTRALINE 100 MG PO SCH (08:06)
[2019-11-01] MEDS: Ferrous Sulfate 325 MG Tab PO SCH (12:18)
[2019-11-01] MEDS: Calcium Carbonate 750 MG Tab.Chew PO PRN (12:18)
[2019-11-01] MEDS: [UNRECOGNIZED DRUG - OTHER] PO SCH (20:33)
[2019-11-01] MEDS: GABAPENTIN 300 MG PO SCH (20:33)
[2019-11-01] MEDS: Melatonin 3 MG Tab PO SCH (20:34)
[2019-11-01] MEDS: ROPINIROLE 0.5 MG PO SCH (20:34)
[2019-11-02] MEDS: Acetaminophen 325 MG Tab PO SCH ×4 (05:02→20:53)
[2019-11-02] MEDS: GABAPENTIN 100 MG PO SCH ×2 (08:18→13:02)
[2019-11-02] MEDS: Multivitamin, Stress Formula with Zinc Tab PO SCH (08:18)
[2019-11-02] MEDS: Omeprazole 20 MG Cap.CR PO SCH (08:18)
[2019-11-02] MEDS: Famotidine 20 MG Tab PO SCH (08:18)
[2019-11-02] MEDS: Calcium Carbonate 750 MG Tab.Chew PO PRN (08:18)
[2019-11-02] MEDS: [UNRECOGNIZED DRUG - OTHER] PO SCH (08:21)
[2019-11-02] MEDS: SERTRALINE 100 MG PO SCH (08:22)
[2019-11-02] MEDS: [UNRECOGNIZED DRUG - OTHER] PO SCH (08:22)
[2019-11-02] MEDS: GABAPENTIN 300 MG PO SCH (20:52)
[2019-11-02] MEDS: Melatonin 3 MG Tab PO SCH (20:52)
[2019-11-02] MEDS: [UNRECOGNIZED DRUG - OTHER] PO SCH (20:52)
[2019-11-02] MEDS: ROPINIROLE 0.5 MG PO SCH (20:52)
[2019-11-03] MEDS: Acetaminophen 325 MG Tab PO SCH ×4 (05:27→19:15)
[2019-11-03] MEDS: Multivitamin, Stress Formula with Zinc Tab PO SCH (08:01)
[2019-11-03] MEDS: Omeprazole 20 MG Cap.CR PO SCH (08:01)
[2019-11-03] MEDS: GABAPENTIN 100 MG PO SCH ×2 (08:01→12:40)
[2019-11-03] MEDS: Famotidine 20 MG Tab PO SCH (08:02)
[2019-11-03] MEDS: Calcium Carbonate 750 MG Tab.Chew PO PRN (08:02)
[2019-11-03] MEDS: SERTRALINE 100 MG PO SCH (08:03)
[2019-11-03] MEDS: [UNRECOGNIZED DRUG - OTHER] PO SCH (08:03)
[2019-11-03] MEDS: [UNRECOGNIZED DRUG - OTHER] PO SCH (08:04)
[2019-11-03] MEDS: Ferrous Sulfate 325 MG Tab PO SCH (12:40)
--- NOTE | 2019-11-03 14:37 | PCM.PN ---
- General Info Date of Service: 10/29/19 Subjective Update: Subjective: Patient is doing well. Treated for UTI last month, symptoms have resolved. Still occasional reflux/GI upset. Nothing that interferes much with oral intake. 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 Obj: Vital signs been stable. Weight stable. Alert oriented eating her lunch no acute distress pleasant cooperative heart and lungs clear to auscultation abdomen soft nontender Assessment and plan: [id number] 60 day visit no new complaints noted. Eyelid currently appears normal after squamous cell excision, watch for any recurrence. Mild upper GI symptoms are stable. - Patient Data Vitals - Most Recent: Last Vital Signs Temp 36.5 C 11/03/19 07:56 Pulse 80 11/03/19 08:03 Resp 15 11/03/19 07:56 BP 127/49 L 11/03/19 08:03 Pulse Ox 93 L 11/03/19 07:56 Weight - Most Recent: 87.362 kg I&O - Last 24 Hours: Intake & Output 11/02/19 11/03/19 11/03/19 22:59 06:59 14:59 Intake Total 420 Balance 420 Med Orders - Current: Current Medications Acetaminophen (Tylenol) 650 mg PO 0200,0800,1300,2000 [facility] Last Admin: 11/03/19 12:40 Dose: 650 mg Documented by: Calcium Carbonate/Glycine (Tums Extra Strength) 750 mg PO TID PRN PRN Reason: Dyspepsia Last Admin: 11/03/19 08:02 Dose: 750 mg Documented by: Docusate Sodium (Colace) 100 mg PO DAILY PRN PRN Reason: Constipation Famotidine (Pepcid) 20 mg PO DAILY [facility] Last Admin: 11/03/19 08:02 Dose: 20 mg Documented by: Ferrous Sulfate (Ferrous Sulfate) 325 mg PO Q48H [facility] Last Admin: 11/03/19 12:40 Dose: 325 mg Documented by: Furosemide (Lasix) 20 mg PO DAILY [facility] Last Admin: 11/03/19 08:04 Dose: 20 mg Documented by: Gabapentin (Neurontin) 100 mg PO BID@0800,1300 [facility] Last Admin: 11/03/19 12:40 Dose: 100 mg Documented by: Gabapentin (Neurontin) 300 mg PO BEDTIME [facility] Last Admin: 11/02/19 20:52 Dose: 300 mg Documented by: Loperamide HCl (Imodium) 2 mg PO Q12H PRN PRN Reason: Diarrhea Last Admin: 07/09/19 08:30 Dose: 2 mg Documented by: Melatonin (Melatonin) 6 mg PO BEDTIME [facility] Last Admin: 11/02/19 20:52 Dose: 6 mg Documented by: Metoprolol Succinate (Toprol Xl) 25 mg PO DAILY [facility] Last Admin: 11/03/19 08:03 Dose: 25 mg Documented by: Miconazole (Desenex 2%) 0 gm TOP BID PRN PRN Reason: Rash Last Admin: 03/29/19 08:43 Dose: 1 applic Documented by: Nitroglycerin (Nitrostat) 0.4 mg SL Q5M PRN PRN Reason: Chest Pain Last Admin: 10/12/19 11:27 Dose: 0.4 mg Documented by: Omeprazole (Omeprazole) 20 mg PO DAILY [facility] Last Admin: 11/03/19 08:01 Dose: 20 mg Documented by: Pharmacy Consult (Consult To Pharmacy) 1 each .XX ASDIRECTED [facility] Polyethylene Glycol (Miralax) 17 gm PO DAILY PRN PRN Reason: Constipation Ropinirole HCl (Requip) 0.5 mg PO BEDTIME [facility] Last Admin: 11/02/19 20:52 Dose: 0.5 mg Documented by: Senna/Docusate Sodium (Senna Plus) 1 tab PO DAILY PRN PRN Reason: Constipation Sertraline HCl (Zoloft) 100 mg PO DAILY [facility] Last Admin: 11/03/19 08:03 Dose: 100 mg Documented by: Vitamin B Complex/Vit C/Vit E/Zinc (Stress Formula With Zinc) 1 tab PO DAILY [facility] Last Admin: 11/03/19 08:01 Dose: 1 tab Documented by: Warfarin Sodium (Coumadin) 2.5 mg PO MoTh@1999 [facility] Last Admin: 10/30/19 20:32 Dose: 2.5 mg Documented by: Warfarin Sodium (Coumadin) 5 mg PO SuTuWeFrSa@1999 [facility] Last Admin: 11/02/19 20:52 Dose: 5 mg Documented by: Discontinued Medications Erythromycin (Erythromycin 0.5% Ophth Oint) 0 gm EYERT BID [facility] Stop: 10/08/19 20:01 Last Admin: 10/08/19 19:35 Dose: 1 applic Documented by: Furosemide (Lasix) 20 mg PO DAILY [facility] Last Admin: 02/04/19 08:18 Dose: 20 mg Documented by: Gabapentin (Neurontin) 100 mg PO BID@0800,1300 [facility] Last Admin: 02/04/19 13:48 Dose: 100 mg Documented by: Influenza Virus Vaccine (Fluzone High-Dose 2019-20 Syringe) 180 mcg IM .ONCE ONE Stop: 02/11/19 14:01 Last Admin: 02/11/19 13:57 Dose: 180 mcg Documented by: Iopamidol (Isovue-300 (61%)) 100 ml IVPUSH ONETIME ONE Stop: 05/08/19 15:19 Last Admin: 05/08/19 16:33 Dose: 100 ml Documented by: Miconazole (Desenex 2%) 1 gm TOP BID [facility] Last Admin: 03/26/19 09:20 Dose: Not Given Documented by: Nitrofurantoin Macrocrystals (Macrobid) 100 mg PO BID [facility] Stop: 03/08/19 20:00 Last Admin: 03/04/19 07:54 Dose: 100 mg Documented by: Nitrofurantoin Macrocrystals (Macrobid) 100 mg PO BID [facility] Stop: 03/08/19 20:01 Last Admin: 03/08/19 20:34 Dose: 100 mg Documented by: Own Supply: Warfarin 2.5mg (1/2 Of 5mg Tab) 0 mg PO MoTh@1999 [facility] Last Admin: 02/03/19 19:37 Dose: 2.5 mg Documented by: Own Supply: Warfarin (. 5mg) 0 mg PO SuTuWeFrSa@1999 [facility] Last Admin: 02/02/19 19:43 Dose: 5 mg Documented by: Own Supply: (Gabapentin. 300mg) 0 mg PO BEDTIME [facility] Last Admin: 02/03/19 19:36 Dose: 300 mg Documented by: Own Supply: (Metoprolol.Er 25mg) 0 mg PO DAILY [facility] Last Admin: 02/04/19 08:17 Dose: 25 mg Documented by: Polyethylene Glycol (Miralax) 17 gm PO DAILY [facility] Last Admin: 12/18/18 08:17 Dose: Not Given Documented by: Ropinirole HCl (Requip) 0.5 mg PO BEDTIME [facility] Last Admin: 02/03/19 19:37 Dose: 0.5 mg Documented by: Sertraline HCl (Zoloft) 100 mg PO DAILY [facility] Last Admin: 07/18/19 07:56 Dose: 100 mg Documented by: Trimethoprim/Sulfamethoxazole (Septra Ds) 1 tab PO BID [facility] Stop: 10/14/19 23:00 Last Admin: 10/13/19 08:28 Dose: 1 tab Documented by: Trimethoprim/Sulfamethoxazole (Septra Ds) 1 tab PO BID [facility] Stop: 10/14/19 23:00 Last Admin: 10/14/19 20:04 Dose: 1 tab Documented by: Warfarin Sodium (Coumadin) 5 mg PO ONETIME ONE Stop: 10/07/19 20:29 Last Admin: 10/07/19 21:09 Dose: 5 mg Documented by: Sepsis Event Note - Evaluation Sepsis Screening Result: No Definite Risk - Focused Exam Vital Signs: Vital Signs Temp Pulse Pulse Resp BP BP Pulse Ox 11/03/19 08:03 80 127/49 L 11/03/19 07:56 36.5 C 80 15 127/49 L 93 L Date Exam was Performed: 11/03/19 Time Exam was Performed: 14:35 - Problem List Review Problem List Initiated/Reviewed/Updated: Yes - My Orders Last 24 Hours: My Active Orders 11/14/19 07:00 INR,PT,PROTHROMBIN TIME [COAG] Q28D 12/12/19 07:00 INR,PT,PROTHROMBIN TIME [COAG] Q28D 01/09/20 07:00 INR,PT,PROTHROMBIN TIME [COAG] Q28D 02/06/20 07:00 INR,PT,PROTHROMBIN TIME [COAG] Q28D 03/05/20 07:00 INR,PT,PROTHROMBIN TIME [COAG] Q28D
[2019-11-03] MEDS: Melatonin 3 MG Tab PO SCH (19:15)
[2019-11-03] MEDS: GABAPENTIN 300 MG PO SCH (19:15)
[2019-11-03] MEDS: ROPINIROLE 0.5 MG PO SCH (19:16)
[2019-11-03] MEDS: WARFARIN PO SCH (19:16)
[2019-11-04] MEDS: Acetaminophen 325 MG Tab PO SCH ×4 (06:24→21:29)
[2019-11-04] MEDS: [UNRECOGNIZED DRUG - OTHER] PO SCH (08:33)
[2019-11-04] MEDS: [UNRECOGNIZED DRUG - OTHER] PO SCH (08:33)
[2019-11-04] MEDS: SERTRALINE 100 MG PO SCH (08:33)
[2019-11-04] MEDS: GABAPENTIN 100 MG PO SCH ×2 (08:34→13:38)
[2019-11-04] MEDS: Omeprazole 20 MG Cap.CR PO SCH (08:34)
[2019-11-04] MEDS: Multivitamin, Stress Formula with Zinc Tab PO SCH (08:34)
[2019-11-04] MEDS: Famotidine 20 MG Tab PO SCH (08:35)
[2019-11-04] MEDS: Melatonin 3 MG Tab PO SCH (21:28)
[2019-11-04] MEDS: [UNRECOGNIZED DRUG - OTHER] PO SCH (21:28)
[2019-11-04] MEDS: ROPINIROLE 0.5 MG PO SCH (21:29)
[2019-11-04] MEDS: GABAPENTIN 300 MG PO SCH (21:29)
[2019-11-05] MEDS: Acetaminophen 325 MG Tab PO SCH ×4 (02:00→20:23)
[2019-11-05] MEDS: [UNRECOGNIZED DRUG - OTHER] PO SCH (08:39)
[2019-11-05] MEDS: SERTRALINE 100 MG PO SCH (08:39)
[2019-11-05] MEDS: Multivitamin, Stress Formula with Zinc Tab PO SCH (08:39)
[2019-11-05] MEDS: Omeprazole 20 MG Cap.CR PO SCH (08:39)
[2019-11-05] MEDS: Famotidine 20 MG Tab PO SCH (08:39)
[2019-11-05] MEDS: [UNRECOGNIZED DRUG - OTHER] PO SCH (08:40)
[2019-11-05] MEDS: Calcium Carbonate 750 MG Tab.Chew PO PRN (08:40)
[2019-11-05] MEDS: GABAPENTIN 100 MG PO SCH ×2 (08:40→12:39)
[2019-11-05] MEDS: Ferrous Sulfate 325 MG Tab PO SCH (12:39)
[2019-11-05] MEDS: [UNRECOGNIZED DRUG - OTHER] PO SCH (20:22)
[2019-11-05] MEDS: GABAPENTIN 300 MG PO SCH (20:22)
[2019-11-05] MEDS: ROPINIROLE 0.5 MG PO SCH (20:22)
[2019-11-05] MEDS: Melatonin 3 MG Tab PO SCH (20:23)
[2019-11-06] MEDS: Acetaminophen 325 MG Tab PO SCH ×4 (04:47→20:06)
[2019-11-06] MEDS: [UNRECOGNIZED DRUG - OTHER] PO SCH (08:19)
[2019-11-06] MEDS: [UNRECOGNIZED DRUG - OTHER] PO SCH (08:20)
[2019-11-06] MEDS: SERTRALINE 100 MG PO SCH (08:20)
[2019-11-06] MEDS: GABAPENTIN 100 MG PO SCH ×2 (08:22→14:06)
[2019-11-06] MEDS: Multivitamin, Stress Formula with Zinc Tab PO SCH (08:24)
[2019-11-06] MEDS: Omeprazole 20 MG Cap.CR PO SCH (08:24)
[2019-11-06] MEDS: Famotidine 20 MG Tab PO SCH (08:31)
[2019-11-06] MEDS: Calcium Carbonate 750 MG Tab.Chew PO PRN ×2 (08:32→20:09)
[2019-11-06] MEDS: ROPINIROLE 0.5 MG PO SCH (20:04)
[2019-11-06] MEDS: GABAPENTIN 300 MG PO SCH (20:05)
[2019-11-06] MEDS: WARFARIN PO SCH (20:05)
[2019-11-06] MEDS: Melatonin 3 MG Tab PO SCH (20:06)
[2019-11-07] MEDS: Acetaminophen 325 MG Tab PO SCH ×4 (06:31→19:39)
[2019-11-07] MEDS: GABAPENTIN 100 MG PO SCH ×2 (09:04→13:43)
[2019-11-07] MEDS: [UNRECOGNIZED DRUG - OTHER] PO SCH (09:07)
[2019-11-07] MEDS: [UNRECOGNIZED DRUG - OTHER] PO SCH (09:08)
[2019-11-07] MEDS: SERTRALINE 100 MG PO SCH (09:08)
[2019-11-07] MEDS: Multivitamin, Stress Formula with Zinc Tab PO SCH (09:08)
[2019-11-07] MEDS: Omeprazole 20 MG Cap.CR PO SCH (09:08)
[2019-11-07] MEDS: Famotidine 20 MG Tab PO SCH (09:08)
[2019-11-07] MEDS: Ferrous Sulfate 325 MG Tab PO SCH (13:43)
[2019-11-07] MEDS: GABAPENTIN 300 MG PO SCH (19:37)
[2019-11-07] MEDS: ROPINIROLE 0.5 MG PO SCH (19:37)
[2019-11-07] MEDS: [UNRECOGNIZED DRUG - OTHER] PO SCH (19:38)
[2019-11-07] MEDS: Melatonin 3 MG Tab PO SCH (19:38)
[2019-11-08] MEDS: Acetaminophen 325 MG Tab PO SCH ×4 (06:12→19:55)
[2019-11-08] MEDS: Famotidine 20 MG Tab PO SCH (09:25)
[2019-11-08] MEDS: Omeprazole 20 MG Cap.CR PO SCH (09:26)
[2019-11-08] MEDS: GABAPENTIN 100 MG PO SCH ×2 (09:26→13:15)
[2019-11-08] MEDS: Multivitamin, Stress Formula with Zinc Tab PO SCH (09:26)
[2019-11-08] MEDS: [UNRECOGNIZED DRUG - OTHER] PO SCH (09:26)
[2019-11-08] MEDS: [UNRECOGNIZED DRUG - OTHER] PO SCH (09:26)
[2019-11-08] MEDS: SERTRALINE 100 MG PO SCH (09:26)
[2019-11-08] MEDS: [UNRECOGNIZED DRUG - OTHER] PO SCH (19:54)
[2019-11-08] MEDS: Melatonin 3 MG Tab PO SCH (19:55)
[2019-11-08] MEDS: GABAPENTIN 300 MG PO SCH (19:57)
[2019-11-08] MEDS: ROPINIROLE 0.5 MG PO SCH (19:59)
[2019-11-08] MEDS: Calcium Carbonate 750 MG Tab.Chew PO PRN (20:00)
[2019-11-09] MEDS: Acetaminophen 325 MG Tab PO SCH ×4 (01:46→19:58)
[2019-11-09] MEDS: GABAPENTIN 100 MG PO SCH ×2 (08:17→16:44)
[2019-11-09] MEDS: Multivitamin, Stress Formula with Zinc Tab PO SCH (08:18)
[2019-11-09] MEDS: Omeprazole 20 MG Cap.CR PO SCH (08:18)
[2019-11-09] MEDS: Famotidine 20 MG Tab PO SCH (08:18)
[2019-11-09] MEDS: [UNRECOGNIZED DRUG - OTHER] PO SCH (08:19)
[2019-11-09] MEDS: [UNRECOGNIZED DRUG - OTHER] PO SCH (08:19)
[2019-11-09] MEDS: SERTRALINE 100 MG PO SCH (08:19)
[2019-11-09] MEDS: Calcium Carbonate 750 MG Tab.Chew PO PRN (08:35)
[2019-11-09] MEDS: Ferrous Sulfate 325 MG Tab PO SCH (16:46)
[2019-11-09] MEDS: GABAPENTIN 300 MG PO SCH (19:55)
[2019-11-09] MEDS: Melatonin 3 MG Tab PO SCH (19:56)
[2019-11-09] MEDS: ROPINIROLE 0.5 MG PO SCH (19:57)
[2019-11-09] MEDS: [UNRECOGNIZED DRUG - OTHER] PO SCH (19:58)
[2019-11-10] MEDS: Acetaminophen 325 MG Tab PO SCH ×4 (03:05→20:31)
[2019-11-10] MEDS: GABAPENTIN 100 MG PO SCH ×2 (08:19→12:13)
[2019-11-10] MEDS: [UNRECOGNIZED DRUG - OTHER] PO SCH (08:19)
[2019-11-10] MEDS: SERTRALINE 100 MG PO SCH (08:19)
[2019-11-10] MEDS: Calcium Carbonate 750 MG Tab.Chew PO PRN (08:19)
[2019-11-10] MEDS: [UNRECOGNIZED DRUG - OTHER] PO SCH (08:19)
[2019-11-10] MEDS: Multivitamin, Stress Formula with Zinc Tab PO SCH (08:19)
[2019-11-10] MEDS: Famotidine 20 MG Tab PO SCH (08:19)
[2019-11-10] MEDS: Omeprazole 20 MG Cap.CR PO SCH (08:19)
[2019-11-10] MEDS: GABAPENTIN 300 MG PO SCH (20:30)
[2019-11-10] MEDS: WARFARIN PO SCH (20:30)
[2019-11-10] MEDS: ROPINIROLE 0.5 MG PO SCH (20:30)
[2019-11-10] MEDS: Melatonin 3 MG Tab PO SCH (20:31)
[2019-11-11] MEDS: Acetaminophen 325 MG Tab PO SCH ×4 (03:53→19:37)
[2019-11-11] MEDS: Multivitamin, Stress Formula with Zinc Tab PO SCH (07:42)
[2019-11-11] MEDS: [UNRECOGNIZED DRUG - OTHER] PO SCH (07:42)
[2019-11-11] MEDS: [UNRECOGNIZED DRUG - OTHER] PO SCH (07:42)
[2019-11-11] MEDS: SERTRALINE 100 MG PO SCH (07:42)
[2019-11-11] MEDS: Famotidine 20 MG Tab PO SCH (07:42)
[2019-11-11] MEDS: Omeprazole 20 MG Cap.CR PO SCH (07:42)
[2019-11-11] MEDS: GABAPENTIN 100 MG PO SCH ×2 (07:42→12:12)
[2019-11-11] MEDS: Ferrous Sulfate 325 MG Tab PO SCH (12:12)
[2019-11-11] MEDS: GABAPENTIN 300 MG PO SCH (19:36)
[2019-11-11] MEDS: Melatonin 3 MG Tab PO SCH (19:36)
[2019-11-11] MEDS: ROPINIROLE 0.5 MG PO SCH (19:37)
[2019-11-11] MEDS: [UNRECOGNIZED DRUG - OTHER] PO SCH (19:37)
[2019-11-12] MEDS: Acetaminophen 325 MG Tab PO SCH ×2 (04:43→08:04)
[2019-11-12] MEDS: Omeprazole 20 MG Cap.CR PO SCH (08:03)
[2019-11-12] MEDS: GABAPENTIN 100 MG PO SCH (08:04)
[2019-11-12] MEDS: Famotidine 20 MG Tab PO SCH (08:04)
[2019-11-12] MEDS: [UNRECOGNIZED DRUG - OTHER] PO SCH (08:05)
[2019-11-12] MEDS: [UNRECOGNIZED DRUG - OTHER] PO SCH (08:06)
[2019-11-12] MEDS: SERTRALINE 100 MG PO SCH (08:06)
[2019-11-12 08:07] VITALS: BP 146/56; PULSE 81
[2019-11-12] MEDS: Calcium Carbonate 750 MG Tab.Chew PO PRN (08:08)
[~2019-11-12 11:07] MED LIST: Docusate Sodium 100 MG Cap PO PRN; Iopamidol 612 MG/ML 100 ML Bottle IVPUSH ONE; Multivitamins with Iron/Calcium/Folic Acid/Minerals Tab PO SCH; Polyethylene Glycol 3350 Powder 17 GM Packet PO PRN; Vitamin B Complex Tab PO SCH; Warfarin 5 MG Tab PO ONE; [UNRECOGNIZED DRUG - REMARK] PRN; [UNRECOGNIZED DRUG - REMARK] SCH; [UNRECOGNIZED DRUG - REMARK] SCH
== END | disposition swing bed (61) | DRG 641 ==
LOC: VM.MS 11-12 14:05
PROVIDERS: ADMIT Family Medicine; ATTEND Family Medicine
DX: R62.7 Adult failure to thrive (principal); N39.0 Urinary tract infection, site not specified; I13.0 Hypertensive heart and chronic kidney disease with heart failure and stage 1 through stage 4 chronic kidney disease, or unspecified chronic kidney disease; I50.32 Chronic diastolic (congestive) heart failure; K21.9 Gastro-esophageal reflux disease without esophagitis; G31.84 Mild cognitive impairment of uncertain or unknown etiology; M81.0 Age-related osteoporosis without current pathological fracture; D64.9 Anemia, unspecified; G62.9 Polyneuropathy, unspecified; G25.81 Restless legs syndrome; E66.9 Obesity, unspecified; M10.9 Gout, unspecified; F41.9 Anxiety disorder, unspecified; F32.9 Major depressive disorder, single episode, unspecified; N18.3 Chronic kidney disease, stage 3 (moderate); R07.9 Chest pain, unspecified; R53.1 Weakness; I25.119 Atherosclerotic heart disease of native coronary artery with unspecified angina pectoris; J44.9 Chronic obstructive pulmonary disease, unspecified; Z86.718 Personal history of other venous thrombosis and embolism; Z85.828 Personal history of other malignant neoplasm of skin; Z85.43 Personal history of malignant neoplasm of ovary; Z79.01 Long term (current) use of anticoagulants; Z79.899 Other long term (current) drug therapy; Z88.8 Allergy status to other drugs, medicaments and biological substances; Z68.32 Body mass index [BMI] 32.0-32.9, adult
CPT/HCPCS: 36415; 71046; 71260; 80048; 80053; 81001; 81003; 82274; 82607; 82728; 83540; 83550; 83880; 84443; 85025; 85046; 85610; 87086; 87088; 87186; 90662; 93005; 94760; A9270-GY; G0008; Q9967

== ENCOUNTER 2020-01-22 12:42 | Inpatient (IN) | payer MEDICAID, MEDICARE ==
[2020-01-22] MEDS ORDERED: Nitroglycerin 0.4 MG Tab.SL (OWN SUPPLY) SL PRN (12:59)
[2020-01-22] MEDS ORDERED: Docusate Sodium 100 MG Cap PO PRN (13:01)
[2020-01-22] MEDS ORDERED: Polyethylene Glycol 3350 Powder 17 GM Packet PO PRN (13:01)
[2020-01-22] MEDS ORDERED: [UNRECOGNIZED DRUG - REMARK] SCH (13:45)
[2020-01-22] MEDS: Calcium Carbonate 750 MG Tab.Chew PO PRN (14:30)
[2020-01-22] MEDS: Gabapentin 100 MG Cap (OWN SUPPLY) PO SCH (14:31)
[2020-01-22] MEDS: Acetaminophen 325 MG Tab PO SCH ×2 (14:34→19:59)
[2020-01-22] MEDS: Gabapentin 300 MG Cap (OWN SUPPLY) PO SCH (19:58)
[2020-01-22] MEDS: ROPINIROLE 0.5 MG PO SCH (19:59)
[2020-01-22] MEDS: Melatonin 3 MG Tab PO SCH (19:59)
[2020-01-23] MEDS: Gabapentin 100 MG Cap (OWN SUPPLY) PO SCH ×2 (09:00→12:30)
[2020-01-23] MEDS: Furosemide 20 MG Tab (OWN SUPPLY) PO SCH (09:01)
[2020-01-23] MEDS: ISOSORBIDE MONONITRATE 30 MG PO SCH (09:01)
[2020-01-23] MEDS: Metoprolol Succinate 25 MG Tab.ER (OWN SUPPLY) PO SCH (09:01)
[2020-01-23] MEDS: Vitamin B Complex Tab PO SCH (09:02)
[2020-01-23] MEDS: Multivitamins with Iron/Calcium/Folic Acid/Minerals Tab PO SCH (09:02)
[2020-01-23] MEDS: Acetaminophen 325 MG Tab PO SCH ×3 (09:02→19:55)
[2020-01-23] MEDS: Famotidine 20 MG Tab PO SCH (09:02)
[2020-01-23] MEDS: Omeprazole 20 MG Cap.CR PO SCH (09:02)
[2020-01-23] MEDS: Ferrous Sulfate 325 MG Tab PO SCH (09:02)
[2020-01-23] MEDS: Calcium Carbonate 750 MG Tab.Chew PO PRN (09:03)
[2020-01-23] MEDS: Sertraline 100 MG Tab (OWN SUPPLY) PO SCH (09:05)
[2020-01-23] MEDS: WARFARIN 5 MG PO SCH (19:54)
[2020-01-23] MEDS: ROPINIROLE 0.5 MG PO SCH (19:54)
[2020-01-23] MEDS: Gabapentin 300 MG Cap (OWN SUPPLY) PO SCH (19:54)
[2020-01-23] MEDS: Melatonin 3 MG Tab PO SCH (19:55)
[2020-01-23] MEDS ORDERED: WARFARIN 5 MG PO ONE (20:00)
[2020-01-24] MEDS: Vitamin B Complex Tab PO SCH (07:43)
[2020-01-24] MEDS: Multivitamins with Iron/Calcium/Folic Acid/Minerals Tab PO SCH (07:43)
[2020-01-24] MEDS: Acetaminophen 325 MG Tab PO SCH ×3 (07:43→20:32)
[2020-01-24] MEDS: Famotidine 20 MG Tab PO SCH (07:43)
[2020-01-24] MEDS: Omeprazole 20 MG Cap.CR PO SCH (07:43)
[2020-01-24] MEDS: Metoprolol Succinate 25 MG Tab.ER (OWN SUPPLY) PO SCH (07:44)
[2020-01-24] MEDS: Furosemide 20 MG Tab (OWN SUPPLY) PO SCH (07:44)
[2020-01-24] MEDS: Sertraline 100 MG Tab (OWN SUPPLY) PO SCH (07:44)
[2020-01-24] MEDS: ISOSORBIDE MONONITRATE 30 MG PO SCH (07:45)
[2020-01-24] MEDS: Gabapentin 100 MG Cap (OWN SUPPLY) PO SCH ×2 (07:45→12:29)
[2020-01-24] MEDS: Gabapentin 300 MG Cap (OWN SUPPLY) PO SCH (20:30)
[2020-01-24] MEDS: WARFARIN 5 MG PO SCH (20:31)
[2020-01-24] MEDS: ROPINIROLE 0.5 MG PO SCH (20:31)
[2020-01-24] MEDS: Melatonin 3 MG Tab PO SCH (20:32)
[2020-01-25] MEDS: Gabapentin 100 MG Cap (OWN SUPPLY) PO SCH ×2 (08:10→12:53)
[2020-01-25] MEDS: Sertraline 100 MG Tab (OWN SUPPLY) PO SCH (08:11)
[2020-01-25] MEDS: Ferrous Sulfate 325 MG Tab PO SCH (08:12)
[2020-01-25] MEDS: Vitamin B Complex Tab PO SCH (08:12)
[2020-01-25] MEDS: Furosemide 20 MG Tab (OWN SUPPLY) PO SCH (08:12)
[2020-01-25] MEDS: Famotidine 20 MG Tab PO SCH (08:12)
[2020-01-25] MEDS: Multivitamins with Iron/Calcium/Folic Acid/Minerals Tab PO SCH (08:13)
[2020-01-25] MEDS: Omeprazole 20 MG Cap.CR PO SCH (08:13)
[2020-01-25] MEDS: Acetaminophen 325 MG Tab PO SCH ×3 (08:14→20:07)
[2020-01-25] MEDS: ISOSORBIDE MONONITRATE 30 MG PO SCH (08:18)
[2020-01-25] MEDS: Metoprolol Succinate 25 MG Tab.ER (OWN SUPPLY) PO SCH (08:18)
[2020-01-25] MEDS: Gabapentin 300 MG Cap (OWN SUPPLY) PO SCH (20:05)
[2020-01-25] MEDS: WARFARIN 5 MG PO SCH (20:06)
[2020-01-25] MEDS: Melatonin 3 MG Tab PO SCH (20:07)
[2020-01-25] MEDS: ROPINIROLE 0.5 MG PO SCH (20:07)
[2020-01-26] MEDS: Acetaminophen 325 MG Tab PO SCH ×3 (08:44→20:12)
[2020-01-26] MEDS: Gabapentin 100 MG Cap (OWN SUPPLY) PO SCH ×2 (08:44→12:25)
[2020-01-26] MEDS: Vitamin B Complex Tab PO SCH (08:44)
[2020-01-26] MEDS: Multivitamins with Iron/Calcium/Folic Acid/Minerals Tab PO SCH (08:44)
[2020-01-26] MEDS: Metoprolol Succinate 25 MG Tab.ER (OWN SUPPLY) PO SCH (08:44)
[2020-01-26] MEDS: Omeprazole 20 MG Cap.CR PO SCH (08:44)
[2020-01-26] MEDS: Famotidine 20 MG Tab PO SCH (08:44)
[2020-01-26] MEDS: Sertraline 100 MG Tab (OWN SUPPLY) PO SCH (08:45)
[2020-01-26] MEDS: Furosemide 20 MG Tab (OWN SUPPLY) PO SCH (08:45)
[2020-01-26] MEDS: ISOSORBIDE MONONITRATE 30 MG PO SCH (08:45)
[2020-01-26] MEDS: Gabapentin 300 MG Cap (OWN SUPPLY) PO SCH (20:11)
[2020-01-26] MEDS: ROPINIROLE 0.5 MG PO SCH (20:12)
[2020-01-26] MEDS: WARFARIN 5 MG PO SCH (20:12)
[2020-01-26] MEDS: Melatonin 3 MG Tab PO SCH (20:12)
[2020-01-27] MEDS: Furosemide 20 MG Tab (OWN SUPPLY) PO SCH (08:44)
[2020-01-27] MEDS: Acetaminophen 325 MG Tab PO SCH ×3 (08:44→19:46)
[2020-01-27] MEDS: Gabapentin 100 MG Cap (OWN SUPPLY) PO SCH ×2 (08:44→14:42)
[2020-01-27] MEDS: Ferrous Sulfate 325 MG Tab PO SCH (08:44)
[2020-01-27] MEDS: Vitamin B Complex Tab PO SCH (08:44)
[2020-01-27] MEDS: Multivitamins with Iron/Calcium/Folic Acid/Minerals Tab PO SCH (08:44)
[2020-01-27] MEDS: Famotidine 20 MG Tab PO SCH (08:44)
[2020-01-27] MEDS: Omeprazole 20 MG Cap.CR PO SCH (08:44)
[2020-01-27] MEDS: Sertraline 100 MG Tab (OWN SUPPLY) PO SCH (08:44)
[2020-01-27] MEDS: ISOSORBIDE MONONITRATE 30 MG PO SCH (08:45)
[2020-01-27] MEDS: Metoprolol Succinate 25 MG Tab.ER (OWN SUPPLY) PO SCH (08:45)
[2020-01-27] MEDS: Melatonin 3 MG Tab PO SCH (19:45)
[2020-01-27] MEDS: Gabapentin 300 MG Cap (OWN SUPPLY) PO SCH (19:45)
[2020-01-27] MEDS: WARFARIN 5 MG PO SCH (19:45)
[2020-01-27] MEDS: ROPINIROLE 0.5 MG PO SCH (19:45)
[2020-01-28] MEDS: Gabapentin 100 MG Cap (OWN SUPPLY) PO SCH ×2 (08:53→13:59)
[2020-01-28] MEDS: Acetaminophen 325 MG Tab PO SCH ×3 (08:53→20:17)
[2020-01-28] MEDS: ISOSORBIDE MONONITRATE 30 MG PO SCH (08:53)
[2020-01-28] MEDS: Vitamin B Complex Tab PO SCH (08:53)
[2020-01-28] MEDS: Famotidine 20 MG Tab PO SCH (08:53)
[2020-01-28] MEDS: Omeprazole 20 MG Cap.CR PO SCH (08:53)
[2020-01-28] MEDS: Multivitamins with Iron/Calcium/Folic Acid/Minerals Tab PO SCH (08:53)
[2020-01-28] MEDS: Furosemide 20 MG Tab (OWN SUPPLY) PO SCH (08:53)
[2020-01-28] MEDS: Sertraline 100 MG Tab (OWN SUPPLY) PO SCH (08:53)
[2020-01-28] MEDS: Metoprolol Succinate 25 MG Tab.ER (OWN SUPPLY) PO SCH (08:53)
[2020-01-28] MEDS: Melatonin 3 MG Tab PO SCH (20:18)
[2020-01-28] MEDS: WARFARIN 5 MG PO SCH (20:18)
[2020-01-28] MEDS: Gabapentin 300 MG Cap (OWN SUPPLY) PO SCH (20:18)
[2020-01-28] MEDS: ROPINIROLE 0.5 MG PO SCH (20:19)
[2020-01-28] MEDS: Calcium Carbonate 750 MG Tab.Chew PO PRN (20:20)
[2020-01-29] MEDS: Gabapentin 100 MG Cap (OWN SUPPLY) PO SCH ×2 (08:24→13:24)
[2020-01-29] MEDS: Vitamin B Complex Tab PO SCH (08:25)
[2020-01-29] MEDS: Omeprazole 20 MG Cap.CR PO SCH (08:25)
[2020-01-29] MEDS: Metoprolol Succinate 25 MG Tab.ER (OWN SUPPLY) PO SCH (08:25)
[2020-01-29] MEDS: Sertraline 100 MG Tab (OWN SUPPLY) PO SCH (08:25)
[2020-01-29] MEDS: Acetaminophen 325 MG Tab PO SCH ×3 (08:25→20:08)
[2020-01-29] MEDS: Multivitamins with Iron/Calcium/Folic Acid/Minerals Tab PO SCH (08:25)
[2020-01-29] MEDS: Ferrous Sulfate 325 MG Tab PO SCH (08:25)
[2020-01-29] MEDS: Famotidine 20 MG Tab PO SCH (08:25)
[2020-01-29] MEDS: ISOSORBIDE MONONITRATE 30 MG PO SCH (08:26)
[2020-01-29] MEDS: Furosemide 20 MG Tab (OWN SUPPLY) PO SCH (08:26)
[2020-01-29] MEDS: Melatonin 3 MG Tab PO SCH (20:06)
[2020-01-29] MEDS: Gabapentin 300 MG Cap (OWN SUPPLY) PO SCH (20:06)
[2020-01-29] MEDS: ROPINIROLE 0.5 MG PO SCH (20:07)
[2020-01-29] MEDS: WARFARIN 5 MG PO SCH (20:07)
[2020-01-30] MEDS: Gabapentin 100 MG Cap (OWN SUPPLY) PO SCH ×2 (08:32→12:45)
[2020-01-30] MEDS: Omeprazole 20 MG Cap.CR PO SCH (08:33)
[2020-01-30] MEDS: Acetaminophen 325 MG Tab PO SCH ×3 (08:33→19:51)
[2020-01-30] MEDS: Vitamin B Complex Tab PO SCH (08:33)
[2020-01-30] MEDS: Furosemide 20 MG Tab (OWN SUPPLY) PO SCH (08:33)
[2020-01-30] MEDS: Multivitamins with Iron/Calcium/Folic Acid/Minerals Tab PO SCH (08:33)
[2020-01-30] MEDS: Sertraline 100 MG Tab (OWN SUPPLY) PO SCH (08:33)
[2020-01-30] MEDS: ISOSORBIDE MONONITRATE 30 MG PO SCH (08:33)
[2020-01-30] MEDS: Metoprolol Succinate 25 MG Tab.ER (OWN SUPPLY) PO SCH (08:33)
[2020-01-30] MEDS: Famotidine 20 MG Tab PO SCH (08:33)
[2020-01-30] MEDS: Gabapentin 300 MG Cap (OWN SUPPLY) PO SCH (19:49)
[2020-01-30] MEDS: WARFARIN 5 MG PO SCH (19:51)
[2020-01-30] MEDS: Melatonin 3 MG Tab PO SCH (19:51)
[2020-01-30] MEDS: ROPINIROLE 0.5 MG PO SCH (19:51)
[2020-01-31] MEDS: Vitamin B Complex Tab PO SCH (08:24)
[2020-01-31] MEDS: Acetaminophen 325 MG Tab PO SCH ×3 (08:24→20:01)
[2020-01-31] MEDS: Famotidine 20 MG Tab PO SCH (08:24)
[2020-01-31] MEDS: Multivitamins with Iron/Calcium/Folic Acid/Minerals Tab PO SCH (08:25)
[2020-01-31] MEDS: Omeprazole 20 MG Cap.CR PO SCH (08:25)
[2020-01-31] MEDS: ISOSORBIDE MONONITRATE 30 MG PO SCH (08:25)
[2020-01-31] MEDS: Ferrous Sulfate 325 MG Tab PO SCH (08:25)
[2020-01-31] MEDS: Sertraline 100 MG Tab (OWN SUPPLY) PO SCH (08:26)
[2020-01-31] MEDS: Metoprolol Succinate 25 MG Tab.ER (OWN SUPPLY) PO SCH (08:26)
[2020-01-31] MEDS: Furosemide 20 MG Tab (OWN SUPPLY) PO SCH (08:27)
[2020-01-31] MEDS: Gabapentin 100 MG Cap (OWN SUPPLY) PO SCH ×2 (08:28→12:27)
[2020-01-31] MEDS: Melatonin 3 MG Tab PO SCH (20:00)
[2020-01-31] MEDS: Gabapentin 300 MG Cap (OWN SUPPLY) PO SCH (20:00)
[2020-01-31] MEDS: WARFARIN 5 MG PO SCH (20:01)
[2020-01-31] MEDS: ROPINIROLE 0.5 MG PO SCH (20:01)
[2020-02-01] MEDS: Gabapentin 100 MG Cap (OWN SUPPLY) PO SCH ×2 (09:01→12:24)
[2020-02-01] MEDS: Sertraline 100 MG Tab (OWN SUPPLY) PO SCH (09:02)
[2020-02-01] MEDS: Metoprolol Succinate 25 MG Tab.ER (OWN SUPPLY) PO SCH (09:02)
[2020-02-01] MEDS: ISOSORBIDE MONONITRATE 30 MG PO SCH (09:03)
[2020-02-01] MEDS: Omeprazole 20 MG Cap.CR PO SCH (09:04)
[2020-02-01] MEDS: Famotidine 20 MG Tab PO SCH (09:04)
[2020-02-01] MEDS: Multivitamins with Iron/Calcium/Folic Acid/Minerals Tab PO SCH (09:04)
[2020-02-01] MEDS: Acetaminophen 325 MG Tab PO SCH ×3 (09:04→19:56)
[2020-02-01] MEDS: Vitamin B Complex Tab PO SCH (09:04)
[2020-02-01] MEDS: Furosemide 20 MG Tab (OWN SUPPLY) PO SCH (09:06)
[2020-02-01] MEDS: WARFARIN 5 MG PO SCH (19:55)
[2020-02-01] MEDS: Gabapentin 300 MG Cap (OWN SUPPLY) PO SCH (19:56)
[2020-02-01] MEDS: ROPINIROLE 0.5 MG PO SCH (19:56)
[2020-02-01] MEDS: Calcium Carbonate 750 MG Tab.Chew PO PRN (19:56)
[2020-02-01] MEDS: Melatonin 3 MG Tab PO SCH (19:57)
[2020-02-02] MEDS: Gabapentin 100 MG Cap (OWN SUPPLY) PO SCH ×2 (08:55→12:19)
[2020-02-02] MEDS: ISOSORBIDE MONONITRATE 30 MG PO SCH (08:55)
[2020-02-02] MEDS: Furosemide 20 MG Tab (OWN SUPPLY) PO SCH (08:55)
[2020-02-02] MEDS: Metoprolol Succinate 25 MG Tab.ER (OWN SUPPLY) PO SCH (08:56)
[2020-02-02] MEDS: Sertraline 100 MG Tab (OWN SUPPLY) PO SCH (08:56)
[2020-02-02] MEDS: Ferrous Sulfate 325 MG Tab PO SCH (08:57)
[2020-02-02] MEDS: Omeprazole 20 MG Cap.CR PO SCH (08:57)
[2020-02-02] MEDS: Famotidine 20 MG Tab PO SCH (08:57)
[2020-02-02] MEDS: Multivitamins with Iron/Calcium/Folic Acid/Minerals Tab PO SCH (08:57)
[2020-02-02] MEDS: Acetaminophen 325 MG Tab PO SCH ×3 (08:57→21:59)
[2020-02-02] MEDS: Vitamin B Complex Tab PO SCH (08:57)
[2020-02-02] MEDS: Gabapentin 300 MG Cap (OWN SUPPLY) PO SCH (21:57)
[2020-02-02] MEDS: WARFARIN 5 MG PO SCH (21:58)
[2020-02-02] MEDS: ROPINIROLE 0.5 MG PO SCH (21:58)
[2020-02-02] MEDS: Melatonin 3 MG Tab PO SCH (21:59)
[2020-02-03] MEDS: Multivitamins with Iron/Calcium/Folic Acid/Minerals Tab PO SCH (08:45)
[2020-02-03] MEDS: ISOSORBIDE MONONITRATE 30 MG PO SCH (08:45)
[2020-02-03] MEDS: Vitamin B Complex Tab PO SCH (08:45)
[2020-02-03] MEDS: Gabapentin 100 MG Cap (OWN SUPPLY) PO SCH ×2 (08:45→12:31)
[2020-02-03] MEDS: Omeprazole 20 MG Cap.CR PO SCH (08:45)
[2020-02-03] MEDS: Acetaminophen 325 MG Tab PO SCH ×3 (08:45→20:26)
[2020-02-03] MEDS: Famotidine 20 MG Tab PO SCH (08:45)
[2020-02-03] MEDS: Furosemide 20 MG Tab (OWN SUPPLY) PO SCH (08:45)
[2020-02-03] MEDS: Metoprolol Succinate 25 MG Tab.ER (OWN SUPPLY) PO SCH (08:46)
[2020-02-03] MEDS: Sertraline 100 MG Tab (OWN SUPPLY) PO SCH (08:46)
[2020-02-03] MEDS: Gabapentin 300 MG Cap (OWN SUPPLY) PO SCH (20:24)
[2020-02-03] MEDS: WARFARIN 5 MG PO SCH (20:24)
[2020-02-03] MEDS: ROPINIROLE 0.5 MG PO SCH (20:24)
[2020-02-03] MEDS: Melatonin 3 MG Tab PO SCH (20:26)
[2020-02-04] MEDS: Gabapentin 100 MG Cap (OWN SUPPLY) PO SCH ×2 (08:48→12:42)
[2020-02-04] MEDS: Acetaminophen 325 MG Tab PO SCH ×3 (08:48→20:35)
[2020-02-04] MEDS: Famotidine 20 MG Tab PO SCH (08:48)
[2020-02-04] MEDS: Vitamin B Complex Tab PO SCH (08:48)
[2020-02-04] MEDS: Ferrous Sulfate 325 MG Tab PO SCH (08:48)
[2020-02-04] MEDS: Omeprazole 20 MG Cap.CR PO SCH (08:49)
[2020-02-04] MEDS: Sertraline 100 MG Tab (OWN SUPPLY) PO SCH (08:49)
[2020-02-04] MEDS: Metoprolol Succinate 25 MG Tab.ER (OWN SUPPLY) PO SCH (08:49)
[2020-02-04] MEDS: ISOSORBIDE MONONITRATE 30 MG PO SCH (08:49)
[2020-02-04] MEDS: Multivitamins with Iron/Calcium/Folic Acid/Minerals Tab PO SCH (08:49)
[2020-02-04] MEDS: Furosemide 20 MG Tab (OWN SUPPLY) PO SCH (08:49)
[2020-02-04] MEDS: Melatonin 3 MG Tab PO SCH (20:35)
[2020-02-04] MEDS: ROPINIROLE 0.5 MG PO SCH (20:36)
[2020-02-04] MEDS: WARFARIN 5 MG PO SCH (20:36)
[2020-02-04] MEDS: Gabapentin 300 MG Cap (OWN SUPPLY) PO SCH (20:37)
[2020-02-05] MEDS: Omeprazole 20 MG Cap.CR PO SCH (08:28)
[2020-02-05] MEDS: Gabapentin 100 MG Cap (OWN SUPPLY) PO SCH ×2 (08:28→13:52)
[2020-02-05] MEDS: Famotidine 20 MG Tab PO SCH (08:29)
[2020-02-05] MEDS: ISOSORBIDE MONONITRATE 30 MG PO SCH (08:29)
[2020-02-05] MEDS: Sertraline 100 MG Tab (OWN SUPPLY) PO SCH (08:29)
[2020-02-05] MEDS: Metoprolol Succinate 25 MG Tab.ER (OWN SUPPLY) PO SCH (08:29)
[2020-02-05] MEDS: Acetaminophen 325 MG Tab PO SCH ×3 (08:29→20:43)
[2020-02-05] MEDS: Furosemide 20 MG Tab (OWN SUPPLY) PO SCH (08:29)
[2020-02-05] MEDS: Multivitamins with Iron/Calcium/Folic Acid/Minerals Tab PO SCH (08:29)
[2020-02-05] MEDS: Vitamin B Complex Tab PO SCH (08:29)
[2020-02-05] MEDS: Gabapentin 300 MG Cap (OWN SUPPLY) PO SCH (20:36)
[2020-02-05] MEDS: WARFARIN 5 MG PO SCH (20:37)
[2020-02-05] MEDS: ROPINIROLE 0.5 MG PO SCH (20:37)
[2020-02-05] MEDS: Melatonin 3 MG Tab PO SCH (20:43)
[2020-02-06] MEDS: Sertraline 100 MG Tab (OWN SUPPLY) PO SCH (07:45)
[2020-02-06] MEDS: Metoprolol Succinate 25 MG Tab.ER (OWN SUPPLY) PO SCH (07:45)
[2020-02-06] MEDS: Gabapentin 100 MG Cap (OWN SUPPLY) PO SCH ×2 (07:45→12:07)
[2020-02-06] MEDS: Furosemide 20 MG Tab (OWN SUPPLY) PO SCH (07:46)
[2020-02-06] MEDS: ISOSORBIDE MONONITRATE 30 MG PO SCH (07:46)
[2020-02-06] MEDS: Vitamin B Complex Tab PO SCH (07:47)
[2020-02-06] MEDS: Ferrous Sulfate 325 MG Tab PO SCH (07:47)
[2020-02-06] MEDS: Acetaminophen 325 MG Tab PO SCH ×3 (07:47→19:35)
[2020-02-06] MEDS: Omeprazole 20 MG Cap.CR PO SCH (07:47)
[2020-02-06] MEDS: Famotidine 20 MG Tab PO SCH (07:47)
[2020-02-06] MEDS: Multivitamins with Iron/Calcium/Folic Acid/Minerals Tab PO SCH (07:47)
[2020-02-06] MEDS: WARFARIN 5 MG PO SCH (19:34)
[2020-02-06] MEDS: ROPINIROLE 0.5 MG PO SCH (19:34)
[2020-02-06] MEDS: Gabapentin 300 MG Cap (OWN SUPPLY) PO SCH (19:35)
[2020-02-06] MEDS: Melatonin 3 MG Tab PO SCH (19:35)
[2020-02-07] MEDS: Furosemide 20 MG Tab (OWN SUPPLY) PO SCH (07:36)
[2020-02-07] MEDS: Gabapentin 100 MG Cap (OWN SUPPLY) PO SCH ×2 (07:36→12:13)
[2020-02-07] MEDS: Sertraline 100 MG Tab (OWN SUPPLY) PO SCH (07:37)
[2020-02-07] MEDS: ISOSORBIDE MONONITRATE 30 MG PO SCH (07:37)
[2020-02-07] MEDS: Metoprolol Succinate 25 MG Tab.ER (OWN SUPPLY) PO SCH (07:37)
[2020-02-07] MEDS: Vitamin B Complex Tab PO SCH (07:38)
[2020-02-07] MEDS: Omeprazole 20 MG Cap.CR PO SCH (07:38)
[2020-02-07] MEDS: Acetaminophen 325 MG Tab PO SCH ×3 (07:38→19:41)
[2020-02-07] MEDS: Multivitamins with Iron/Calcium/Folic Acid/Minerals Tab PO SCH (07:39)
[2020-02-07] MEDS: Famotidine 20 MG Tab PO SCH (07:39)
[2020-02-07] MEDS: ROPINIROLE 0.5 MG PO SCH (19:40)
[2020-02-07] MEDS: Gabapentin 300 MG Cap (OWN SUPPLY) PO SCH (19:40)
[2020-02-07] MEDS: WARFARIN 5 MG PO SCH (19:40)
[2020-02-07] MEDS: Melatonin 3 MG Tab PO SCH (19:41)
[2020-02-08] MEDS: Acetaminophen 325 MG Tab PO SCH ×3 (07:44→19:20)
[2020-02-08] MEDS: Gabapentin 100 MG Cap (OWN SUPPLY) PO SCH ×2 (07:44→12:14)
[2020-02-08] MEDS: Famotidine 20 MG Tab PO SCH (07:44)
[2020-02-08] MEDS: Metoprolol Succinate 25 MG Tab.ER (OWN SUPPLY) PO SCH (07:45)
[2020-02-08] MEDS: Sertraline 100 MG Tab (OWN SUPPLY) PO SCH (07:45)
[2020-02-08] MEDS: Furosemide 20 MG Tab (OWN SUPPLY) PO SCH (07:45)
[2020-02-08] MEDS: ISOSORBIDE MONONITRATE 30 MG PO SCH (07:46)
[2020-02-08] MEDS: Vitamin B Complex Tab PO SCH (07:46)
[2020-02-08] MEDS: Multivitamins with Iron/Calcium/Folic Acid/Minerals Tab PO SCH (07:47)
[2020-02-08] MEDS: Omeprazole 20 MG Cap.CR PO SCH (07:47)
[2020-02-08] MEDS: Ferrous Sulfate 325 MG Tab PO SCH (07:47)
[2020-02-08] MEDS: Melatonin 3 MG Tab PO SCH (19:20)
[2020-02-08] MEDS: Gabapentin 300 MG Cap (OWN SUPPLY) PO SCH (19:20)
[2020-02-08] MEDS: WARFARIN 5 MG PO SCH (19:20)
[2020-02-08] MEDS: ROPINIROLE 0.5 MG PO SCH (19:20)
[2020-02-09] MEDS: Gabapentin 100 MG Cap (OWN SUPPLY) PO SCH ×2 (07:48→12:26)
[2020-02-09] MEDS: ISOSORBIDE MONONITRATE 30 MG PO SCH (07:49)
[2020-02-09] MEDS: Sertraline 100 MG Tab (OWN SUPPLY) PO SCH (07:50)
[2020-02-09] MEDS: Furosemide 20 MG Tab (OWN SUPPLY) PO SCH (07:50)
[2020-02-09] MEDS: Metoprolol Succinate 25 MG Tab.ER (OWN SUPPLY) PO SCH (07:50)
[2020-02-09] MEDS: Multivitamins with Iron/Calcium/Folic Acid/Minerals Tab PO SCH (07:51)
[2020-02-09] MEDS: Vitamin B Complex Tab PO SCH (07:51)
[2020-02-09] MEDS: Omeprazole 20 MG Cap.CR PO SCH (07:51)
[2020-02-09] MEDS: Acetaminophen 325 MG Tab PO SCH ×3 (07:51→19:20)
[2020-02-09] MEDS: Famotidine 20 MG Tab PO SCH (07:52)
[2020-02-09] MEDS: Melatonin 3 MG Tab PO SCH (19:20)
[2020-02-09] MEDS: WARFARIN 5 MG PO SCH (19:21)
[2020-02-09] MEDS: ROPINIROLE 0.5 MG PO SCH (19:21)
[2020-02-09] MEDS: Gabapentin 300 MG Cap (OWN SUPPLY) PO SCH (19:51)
[2020-02-10] MEDS: Famotidine 20 MG Tab PO SCH (07:05)
[2020-02-10] MEDS: Omeprazole 20 MG Cap.CR PO SCH (07:05)
[2020-02-10] MEDS: Ferrous Sulfate 325 MG Tab PO SCH (07:06)
[2020-02-10] MEDS: Acetaminophen 325 MG Tab PO SCH ×3 (07:06→19:40)
[2020-02-10] MEDS: Multivitamins with Iron/Calcium/Folic Acid/Minerals Tab PO SCH (07:06)
[2020-02-10] MEDS: ISOSORBIDE MONONITRATE 30 MG PO SCH (07:08)
[2020-02-10] MEDS: Furosemide 20 MG Tab (OWN SUPPLY) PO SCH (07:09)
[2020-02-10] MEDS: Metoprolol Succinate 25 MG Tab.ER (OWN SUPPLY) PO SCH (07:09)
[2020-02-10] MEDS: Gabapentin 100 MG Cap (OWN SUPPLY) PO SCH ×2 (16:40→16:42)
[2020-02-10] MEDS: Calcium Carbonate 750 MG Tab.Chew PO PRN (17:10)
[2020-02-10] MEDS: Sertraline 100 MG Tab (OWN SUPPLY) PO SCH (17:12)
[2020-02-10] MEDS: Vitamin B Complex Tab PO SCH (17:12)
[2020-02-10] MEDS: Gabapentin 300 MG Cap (OWN SUPPLY) PO SCH (19:40)
[2020-02-10] MEDS: Melatonin 3 MG Tab PO SCH (19:40)
[2020-02-10] MEDS: ROPINIROLE 0.5 MG PO SCH (19:40)
[2020-02-10] MEDS: WARFARIN 5 MG PO SCH (19:40)
[2020-02-11] MEDS: ISOSORBIDE MONONITRATE 30 MG PO SCH (08:37)
[2020-02-11] MEDS: Furosemide 20 MG Tab (OWN SUPPLY) PO SCH (08:37)
[2020-02-11] MEDS: Metoprolol Succinate 25 MG Tab.ER (OWN SUPPLY) PO SCH (08:37)
[2020-02-11] MEDS: Sertraline 100 MG Tab (OWN SUPPLY) PO SCH (08:37)
[2020-02-11] MEDS: Omeprazole 20 MG Cap.CR PO SCH (08:38)
[2020-02-11] MEDS: Acetaminophen 325 MG Tab PO SCH ×3 (08:38→19:13)
[2020-02-11] MEDS: Vitamin B Complex Tab PO SCH (08:38)
[2020-02-11] MEDS: Gabapentin 100 MG Cap (OWN SUPPLY) PO SCH ×2 (08:38→12:24)
[2020-02-11] MEDS: Multivitamins with Iron/Calcium/Folic Acid/Minerals Tab PO SCH (08:39)
[2020-02-11] MEDS: Famotidine 20 MG Tab PO SCH (08:39)
[2020-02-11] MEDS: Gabapentin 300 MG Cap (OWN SUPPLY) PO SCH (19:12)
[2020-02-11] MEDS: ROPINIROLE 0.5 MG PO SCH (19:12)
[2020-02-11] MEDS: Melatonin 3 MG Tab PO SCH (19:13)
[2020-02-11] MEDS: WARFARIN 5 MG PO SCH (19:13)
[2020-02-12] MEDS: Metoprolol Succinate 25 MG Tab.ER (OWN SUPPLY) PO SCH (07:41)
[2020-02-12] MEDS: ISOSORBIDE MONONITRATE 30 MG PO SCH (07:41)
[2020-02-12] MEDS: Sertraline 100 MG Tab (OWN SUPPLY) PO SCH (07:41)
[2020-02-12] MEDS: Furosemide 20 MG Tab (OWN SUPPLY) PO SCH (07:41)
[2020-02-12] MEDS: Ferrous Sulfate 325 MG Tab PO SCH (07:42)
[2020-02-12] MEDS: Acetaminophen 325 MG Tab PO SCH ×3 (07:42→19:40)
[2020-02-12] MEDS: Gabapentin 100 MG Cap (OWN SUPPLY) PO SCH ×2 (07:42→13:34)
[2020-02-12] MEDS: Multivitamins with Iron/Calcium/Folic Acid/Minerals Tab PO SCH (07:43)
[2020-02-12] MEDS: Famotidine 20 MG Tab PO SCH (07:43)
[2020-02-12] MEDS: Vitamin B Complex Tab PO SCH (07:43)
[2020-02-12] MEDS: Omeprazole 20 MG Cap.CR PO SCH (07:43)
[2020-02-12] MEDS: Gabapentin 300 MG Cap (OWN SUPPLY) PO SCH (19:39)
[2020-02-12] MEDS: Melatonin 3 MG Tab PO SCH (19:40)
[2020-02-12] MEDS: ROPINIROLE 0.5 MG PO SCH (19:40)
[2020-02-12] MEDS: WARFARIN 5 MG PO SCH (19:41)
[2020-02-12] MEDS: Calcium Carbonate 750 MG Tab.Chew PO PRN (19:41)
[2020-02-13] MEDS: Acetaminophen 325 MG Tab PO SCH ×3 (08:16→19:35)
[2020-02-13] MEDS: Famotidine 20 MG Tab PO SCH (08:16)
[2020-02-13] MEDS: Vitamin B Complex Tab PO SCH (08:16)
[2020-02-13] MEDS: Sertraline 100 MG Tab (OWN SUPPLY) PO SCH (08:16)
[2020-02-13] MEDS: Multivitamins with Iron/Calcium/Folic Acid/Minerals Tab PO SCH (08:16)
[2020-02-13] MEDS: Metoprolol Succinate 25 MG Tab.ER (OWN SUPPLY) PO SCH (08:16)
[2020-02-13] MEDS: Furosemide 20 MG Tab (OWN SUPPLY) PO SCH (08:16)
[2020-02-13] MEDS: Omeprazole 20 MG Cap.CR PO SCH (08:16)
[2020-02-13] MEDS: Gabapentin 100 MG Cap (OWN SUPPLY) PO SCH ×2 (08:17→13:42)
[2020-02-13] MEDS: Calcium Carbonate 750 MG Tab.Chew PO PRN (08:17)
[2020-02-13] MEDS: ISOSORBIDE MONONITRATE 30 MG PO SCH (08:17)
[2020-02-13] MEDS: Melatonin 3 MG Tab PO SCH (19:35)
[2020-02-13] MEDS: Gabapentin 300 MG Cap (OWN SUPPLY) PO SCH (19:36)
[2020-02-13] MEDS: WARFARIN 5 MG PO SCH (19:37)
[2020-02-13] MEDS: ROPINIROLE 0.5 MG PO SCH (19:37)
[2020-02-14] MEDS: Furosemide 20 MG Tab (OWN SUPPLY) PO SCH (08:27)
[2020-02-14] MEDS: Vitamin B Complex Tab PO SCH (08:27)
[2020-02-14] MEDS: Famotidine 20 MG Tab PO SCH (08:27)
[2020-02-14] MEDS: Omeprazole 20 MG Cap.CR PO SCH (08:27)
[2020-02-14] MEDS: Multivitamins with Iron/Calcium/Folic Acid/Minerals Tab PO SCH (08:27)
[2020-02-14] MEDS: Metoprolol Succinate 25 MG Tab.ER (OWN SUPPLY) PO SCH (08:27)
[2020-02-14] MEDS: Sertraline 100 MG Tab (OWN SUPPLY) PO SCH (08:27)
[2020-02-14] MEDS: ISOSORBIDE MONONITRATE 30 MG PO SCH (08:27)
[2020-02-14] MEDS: Gabapentin 100 MG Cap (OWN SUPPLY) PO SCH ×2 (08:27→13:23)
[2020-02-14] MEDS: Acetaminophen 325 MG Tab PO SCH ×3 (08:27→19:44)
[2020-02-14] MEDS: Ferrous Sulfate 325 MG Tab PO SCH (08:27)
[2020-02-14] MEDS: Gabapentin 300 MG Cap (OWN SUPPLY) PO SCH (19:46)
[2020-02-14] MEDS: Melatonin 3 MG Tab PO SCH (19:46)
[2020-02-14] MEDS: ROPINIROLE 0.5 MG PO SCH (19:47)
[2020-02-14] MEDS: WARFARIN 5 MG PO SCH (19:48)
[2020-02-15] MEDS: Furosemide 20 MG Tab (OWN SUPPLY) PO SCH (07:42)
[2020-02-15] MEDS: Omeprazole 20 MG Cap.CR PO SCH (07:42)
[2020-02-15] MEDS: Metoprolol Succinate 25 MG Tab.ER (OWN SUPPLY) PO SCH (07:42)
[2020-02-15] MEDS: ISOSORBIDE MONONITRATE 30 MG PO SCH (07:42)
[2020-02-15] MEDS: Sertraline 100 MG Tab (OWN SUPPLY) PO SCH (07:42)
[2020-02-15] MEDS: Gabapentin 100 MG Cap (OWN SUPPLY) PO SCH ×2 (07:42→12:13)
[2020-02-15] MEDS: Acetaminophen 325 MG Tab PO SCH ×3 (07:43→20:45)
[2020-02-15] MEDS: Multivitamins with Iron/Calcium/Folic Acid/Minerals Tab PO SCH (07:43)
[2020-02-15] MEDS: Vitamin B Complex Tab PO SCH (07:43)
[2020-02-15] MEDS: Famotidine 20 MG Tab PO SCH (07:43)
[2020-02-15] MEDS: Melatonin 3 MG Tab PO SCH (20:43)
[2020-02-15] MEDS: WARFARIN 5 MG PO SCH (20:43)
[2020-02-15] MEDS: Gabapentin 300 MG Cap (OWN SUPPLY) PO SCH (20:44)
[2020-02-15] MEDS: ROPINIROLE 0.5 MG PO SCH (20:44)
[2020-02-16] MEDS: Sertraline 100 MG Tab (OWN SUPPLY) PO SCH (09:25)
[2020-02-16] MEDS: Furosemide 20 MG Tab (OWN SUPPLY) PO SCH (09:25)
[2020-02-16] MEDS: ISOSORBIDE MONONITRATE 30 MG PO SCH (09:25)
[2020-02-16] MEDS: Gabapentin 100 MG Cap (OWN SUPPLY) PO SCH ×2 (09:25→13:22)
[2020-02-16] MEDS: Metoprolol Succinate 25 MG Tab.ER (OWN SUPPLY) PO SCH (09:25)
[2020-02-16] MEDS: Vitamin B Complex Tab PO SCH (09:26)
[2020-02-16] MEDS: Acetaminophen 325 MG Tab PO SCH ×3 (09:26→20:28)
[2020-02-16] MEDS: Famotidine 20 MG Tab PO SCH (09:26)
[2020-02-16] MEDS: Multivitamins with Iron/Calcium/Folic Acid/Minerals Tab PO SCH (09:26)
[2020-02-16] MEDS: Omeprazole 20 MG Cap.CR PO SCH (09:26)
[2020-02-16] MEDS: Ferrous Sulfate 325 MG Tab PO SCH (09:27)
[2020-02-16] MEDS: Gabapentin 300 MG Cap (OWN SUPPLY) PO SCH (20:27)
[2020-02-16] MEDS: Melatonin 3 MG Tab PO SCH (20:28)
[2020-02-16] MEDS: ROPINIROLE 0.5 MG PO SCH (20:28)
[2020-02-16] MEDS: WARFARIN 5 MG PO SCH (20:29)
[2020-02-17] MEDS: Metoprolol Succinate 25 MG Tab.ER (OWN SUPPLY) PO SCH (08:23)
[2020-02-17] MEDS: Multivitamins with Iron/Calcium/Folic Acid/Minerals Tab PO SCH (08:23)
[2020-02-17] MEDS: ISOSORBIDE MONONITRATE 30 MG PO SCH (08:23)
[2020-02-17] MEDS: Furosemide 20 MG Tab (OWN SUPPLY) PO SCH (08:23)
[2020-02-17] MEDS: Acetaminophen 325 MG Tab PO SCH ×3 (08:23→19:55)
[2020-02-17] MEDS: Sertraline 100 MG Tab (OWN SUPPLY) PO SCH (08:23)
[2020-02-17] MEDS: Famotidine 20 MG Tab PO SCH (08:24)
[2020-02-17] MEDS: Omeprazole 20 MG Cap.CR PO SCH (08:24)
[2020-02-17] MEDS: Vitamin B Complex Tab PO SCH (08:24)
[2020-02-17] MEDS: Gabapentin 100 MG Cap (OWN SUPPLY) PO SCH ×2 (08:25→12:32)
[2020-02-17] MEDS: ROPINIROLE 0.5 MG PO SCH (19:55)
[2020-02-17] MEDS: Gabapentin 300 MG Cap (OWN SUPPLY) PO SCH (19:55)
[2020-02-17] MEDS: Melatonin 3 MG Tab PO SCH (19:55)
[2020-02-17] MEDS: WARFARIN 5 MG PO SCH (19:55)
[2020-02-18] MEDS: Furosemide 20 MG Tab (OWN SUPPLY) PO SCH (08:38)
[2020-02-18] MEDS: Gabapentin 100 MG Cap (OWN SUPPLY) PO SCH ×2 (08:38→14:08)
[2020-02-18] MEDS: Metoprolol Succinate 25 MG Tab.ER (OWN SUPPLY) PO SCH (08:38)
[2020-02-18] MEDS: ISOSORBIDE MONONITRATE 30 MG PO SCH (08:38)
[2020-02-18] MEDS: Sertraline 100 MG Tab (OWN SUPPLY) PO SCH (08:38)
[2020-02-18] MEDS: Omeprazole 20 MG Cap.CR PO SCH (08:39)
[2020-02-18] MEDS: Ferrous Sulfate 325 MG Tab PO SCH (08:39)
[2020-02-18] MEDS: Acetaminophen 325 MG Tab PO SCH ×3 (08:39→19:41)
[2020-02-18] MEDS: Vitamin B Complex Tab PO SCH (08:39)
[2020-02-18] MEDS: Multivitamins with Iron/Calcium/Folic Acid/Minerals Tab PO SCH (08:39)
[2020-02-18] MEDS: Famotidine 20 MG Tab PO SCH (08:39)
[2020-02-18] MEDS: Melatonin 3 MG Tab PO SCH (19:41)
[2020-02-18] MEDS: Gabapentin 300 MG Cap (OWN SUPPLY) PO SCH (19:42)
[2020-02-18] MEDS: ROPINIROLE 0.5 MG PO SCH (19:45)
[2020-02-18] MEDS: WARFARIN 5 MG PO SCH (19:46)
[2020-02-19] MEDS: Gabapentin 100 MG Cap (OWN SUPPLY) PO SCH ×2 (10:16→13:23)
[2020-02-19] MEDS: Sertraline 100 MG Tab (OWN SUPPLY) PO SCH (10:17)
[2020-02-19] MEDS: Metoprolol Succinate 25 MG Tab.ER (OWN SUPPLY) PO SCH (10:17)
[2020-02-19] MEDS: ISOSORBIDE MONONITRATE 30 MG PO SCH (10:18)
[2020-02-19] MEDS: Furosemide 20 MG Tab (OWN SUPPLY) PO SCH (10:18)
[2020-02-19] MEDS: Famotidine 20 MG Tab PO SCH (10:19)
[2020-02-19] MEDS: Multivitamins with Iron/Calcium/Folic Acid/Minerals Tab PO SCH (10:19)
[2020-02-19] MEDS: Omeprazole 20 MG Cap.CR PO SCH (10:19)
[2020-02-19] MEDS: Acetaminophen 325 MG Tab PO SCH ×3 (10:19→19:43)
[2020-02-19] MEDS: Vitamin B Complex Tab PO SCH (10:20)
[2020-02-19] MEDS: Gabapentin 300 MG Cap (OWN SUPPLY) PO SCH (19:41)
[2020-02-19] MEDS: ROPINIROLE 0.5 MG PO SCH (19:41)
[2020-02-19] MEDS: WARFARIN 5 MG PO SCH (19:41)
[2020-02-19] MEDS: Melatonin 3 MG Tab PO SCH (19:42)
[2020-02-20] MEDS: Gabapentin 100 MG Cap (OWN SUPPLY) PO SCH ×2 (08:12→12:20)
[2020-02-20] MEDS: Furosemide 20 MG Tab (OWN SUPPLY) PO SCH (08:13)
[2020-02-20] MEDS: ISOSORBIDE MONONITRATE 30 MG PO SCH (08:13)
[2020-02-20] MEDS: Vitamin B Complex Tab PO SCH (08:13)
[2020-02-20] MEDS: Sertraline 100 MG Tab (OWN SUPPLY) PO SCH (08:13)
[2020-02-20] MEDS: Metoprolol Succinate 25 MG Tab.ER (OWN SUPPLY) PO SCH (08:13)
[2020-02-20] MEDS: Ferrous Sulfate 325 MG Tab PO SCH (08:13)
[2020-02-20] MEDS: Famotidine 20 MG Tab PO SCH (08:14)
[2020-02-20] MEDS: Omeprazole 20 MG Cap.CR PO SCH (08:14)
[2020-02-20] MEDS: Multivitamins with Iron/Calcium/Folic Acid/Minerals Tab PO SCH (08:14)
[2020-02-20] MEDS: Acetaminophen 325 MG Tab PO SCH ×3 (08:14→19:56)
[2020-02-20] MEDS: ROPINIROLE 0.5 MG PO SCH (19:56)
[2020-02-20] MEDS: Gabapentin 300 MG Cap (OWN SUPPLY) PO SCH (19:56)
[2020-02-20] MEDS: WARFARIN 5 MG PO SCH (19:56)
[2020-02-20] MEDS: Melatonin 3 MG Tab PO SCH (19:56)
[2020-02-21] MEDS: Omeprazole 20 MG Cap.CR PO SCH (06:39)
[2020-02-21] MEDS: Calcium Carbonate 750 MG Tab.Chew PO PRN (08:50)
[2020-02-21] MEDS: Furosemide 20 MG Tab (OWN SUPPLY) PO SCH (08:51)
[2020-02-21] MEDS: Metoprolol Succinate 25 MG Tab.ER (OWN SUPPLY) PO SCH (08:51)
[2020-02-21] MEDS: Gabapentin 100 MG Cap (OWN SUPPLY) PO SCH ×2 (08:51→12:27)
[2020-02-21] MEDS: ISOSORBIDE MONONITRATE 30 MG PO SCH (08:51)
[2020-02-21] MEDS: Sertraline 100 MG Tab (OWN SUPPLY) PO SCH (08:51)
[2020-02-21] MEDS: Vitamin B Complex Tab PO SCH (08:52)
[2020-02-21] MEDS: Multivitamins with Iron/Calcium/Folic Acid/Minerals Tab PO SCH (08:52)
[2020-02-21] MEDS: Acetaminophen 325 MG Tab PO SCH ×3 (08:52→20:28)
[2020-02-21] MEDS: Melatonin 3 MG Tab PO SCH (20:27)
[2020-02-21] MEDS: Gabapentin 300 MG Cap (OWN SUPPLY) PO SCH (20:28)
[2020-02-21] MEDS: Famotidine 20 MG Tab PO SCH (20:28)
[2020-02-21] MEDS: ROPINIROLE 0.5 MG PO SCH (20:29)
[2020-02-21] MEDS: WARFARIN 5 MG PO SCH (20:29)
[2020-02-22] MEDS: Omeprazole 20 MG Cap.CR PO SCH (06:07)
[2020-02-22] MEDS: ISOSORBIDE MONONITRATE 30 MG PO SCH (09:04)
[2020-02-22] MEDS: Metoprolol Succinate 25 MG Tab.ER (OWN SUPPLY) PO SCH (09:04)
[2020-02-22] MEDS: Sertraline 100 MG Tab (OWN SUPPLY) PO SCH (09:04)
[2020-02-22] MEDS: Furosemide 20 MG Tab (OWN SUPPLY) PO SCH (09:04)
[2020-02-22] MEDS: Gabapentin 100 MG Cap (OWN SUPPLY) PO SCH ×2 (09:05→12:53)
[2020-02-22] MEDS: Calcium Carbonate 750 MG Tab.Chew PO PRN (09:06)
[2020-02-22] MEDS: Vitamin B Complex Tab PO SCH (09:07)
[2020-02-22] MEDS: Acetaminophen 325 MG Tab PO SCH ×3 (09:07→19:58)
[2020-02-22] MEDS: Multivitamins with Iron/Calcium/Folic Acid/Minerals Tab PO SCH (09:07)
[2020-02-22] MEDS: Ferrous Sulfate 325 MG Tab PO SCH (09:07)
[2020-02-22] MEDS: ROPINIROLE 0.5 MG PO SCH (19:57)
[2020-02-22] MEDS: Gabapentin 300 MG Cap (OWN SUPPLY) PO SCH (19:57)
[2020-02-22] MEDS: WARFARIN 5 MG PO SCH (19:57)
[2020-02-22] MEDS: Famotidine 20 MG Tab PO SCH (19:58)
[2020-02-22] MEDS: Melatonin 3 MG Tab PO SCH (19:58)
[2020-02-23] MEDS: Omeprazole 20 MG Cap.CR PO SCH (06:08)
[2020-02-23] MEDS: Furosemide 20 MG Tab (OWN SUPPLY) PO SCH (08:08)
[2020-02-23] MEDS: Sertraline 100 MG Tab (OWN SUPPLY) PO SCH (08:08)
[2020-02-23] MEDS: Gabapentin 100 MG Cap (OWN SUPPLY) PO SCH ×2 (08:09→12:17)
[2020-02-23] MEDS: ISOSORBIDE MONONITRATE 30 MG PO SCH (08:09)
[2020-02-23] MEDS: Metoprolol Succinate 25 MG Tab.ER (OWN SUPPLY) PO SCH (08:09)
[2020-02-23] MEDS: Vitamin B Complex Tab PO SCH (08:10)
[2020-02-23] MEDS: Multivitamins with Iron/Calcium/Folic Acid/Minerals Tab PO SCH (08:10)
[2020-02-23] MEDS: Acetaminophen 325 MG Tab PO SCH ×3 (08:10→20:03)
[2020-02-23] MEDS: Gabapentin 300 MG Cap (OWN SUPPLY) PO SCH (20:01)
[2020-02-23] MEDS: WARFARIN 5 MG PO SCH (20:02)
[2020-02-23] MEDS: ROPINIROLE 0.5 MG PO SCH (20:02)
[2020-02-23] MEDS: Melatonin 3 MG Tab PO SCH (20:03)
[2020-02-23] MEDS: Famotidine 20 MG Tab PO SCH (20:03)
[2020-02-24] MEDS: Omeprazole 20 MG Cap.CR PO SCH (06:53)
[2020-02-24] MEDS: Acetaminophen 325 MG Tab PO SCH ×3 (08:09→19:54)
[2020-02-24] MEDS: Ferrous Sulfate 325 MG Tab PO SCH (08:09)
[2020-02-24] MEDS: Sertraline 100 MG Tab (OWN SUPPLY) PO SCH (08:10)
[2020-02-24] MEDS: Multivitamins with Iron/Calcium/Folic Acid/Minerals Tab PO SCH (08:10)
[2020-02-24] MEDS: Metoprolol Succinate 25 MG Tab.ER (OWN SUPPLY) PO SCH (08:10)
[2020-02-24] MEDS: ISOSORBIDE MONONITRATE 30 MG PO SCH (08:10)
[2020-02-24] MEDS: Furosemide 20 MG Tab (OWN SUPPLY) PO SCH (08:10)
[2020-02-24] MEDS: Gabapentin 100 MG Cap (OWN SUPPLY) PO SCH ×2 (08:10→12:32)
[2020-02-24] MEDS: Vitamin B Complex Tab PO SCH (08:10)
[2020-02-24] MEDS: Gabapentin 300 MG Cap (OWN SUPPLY) PO SCH (19:52)
[2020-02-24] MEDS: WARFARIN 5 MG PO SCH (19:53)
[2020-02-24] MEDS: ROPINIROLE 0.5 MG PO SCH (19:53)
[2020-02-24] MEDS: Melatonin 3 MG Tab PO SCH (19:54)
[2020-02-24] MEDS: Famotidine 20 MG Tab PO SCH (19:54)
[2020-02-25] MEDS: Omeprazole 20 MG Cap.CR PO SCH (06:46)
[2020-02-25] MEDS: Gabapentin 100 MG Cap (OWN SUPPLY) PO SCH ×2 (08:01→13:51)
[2020-02-25] MEDS: Metoprolol Succinate 25 MG Tab.ER (OWN SUPPLY) PO SCH (08:01)
[2020-02-25] MEDS: Furosemide 20 MG Tab (OWN SUPPLY) PO SCH (08:01)
[2020-02-25] MEDS: Multivitamins with Iron/Calcium/Folic Acid/Minerals Tab PO SCH (08:02)
[2020-02-25] MEDS: Sertraline 100 MG Tab (OWN SUPPLY) PO SCH (08:02)
[2020-02-25] MEDS: ISOSORBIDE MONONITRATE 30 MG PO SCH (08:02)
[2020-02-25] MEDS: Acetaminophen 325 MG Tab PO SCH ×3 (08:02→20:11)
[2020-02-25] MEDS: Vitamin B Complex Tab PO SCH (08:02)
[2020-02-25] MEDS: Melatonin 3 MG Tab PO SCH (20:11)
[2020-02-25] MEDS: Famotidine 20 MG Tab PO SCH (20:11)
[2020-02-25] MEDS: WARFARIN 5 MG PO SCH (20:12)
[2020-02-25] MEDS: Gabapentin 300 MG Cap (OWN SUPPLY) PO SCH (20:12)
[2020-02-25] MEDS: ROPINIROLE 0.5 MG PO SCH (20:13)
[2020-02-26] MEDS: Gabapentin 100 MG Cap (OWN SUPPLY) PO SCH ×2 (08:29→12:05)
[2020-02-26] MEDS: Furosemide 20 MG Tab (OWN SUPPLY) PO SCH (08:30)
[2020-02-26] MEDS: ISOSORBIDE MONONITRATE 30 MG PO SCH (08:30)
[2020-02-26] MEDS: Metoprolol Succinate 25 MG Tab.ER (OWN SUPPLY) PO SCH (08:31)
[2020-02-26] MEDS: Sertraline 100 MG Tab (OWN SUPPLY) PO SCH (08:31)
[2020-02-26] MEDS: Acetaminophen 325 MG Tab PO SCH ×3 (08:32→19:48)
[2020-02-26] MEDS: Vitamin B Complex Tab PO SCH (08:32)
[2020-02-26] MEDS: Multivitamins with Iron/Calcium/Folic Acid/Minerals Tab PO SCH (08:32)
[2020-02-26] MEDS: Ferrous Sulfate 325 MG Tab PO SCH (08:32)
[2020-02-26] MEDS: Omeprazole 20 MG Cap.CR PO SCH (08:32)
[2020-02-26] MEDS: Gabapentin 300 MG Cap (OWN SUPPLY) PO SCH (19:47)
[2020-02-26] MEDS: WARFARIN 5 MG PO SCH (19:48)
[2020-02-26] MEDS: Famotidine 20 MG Tab PO SCH (19:48)
[2020-02-26] MEDS: Melatonin 3 MG Tab PO SCH (19:48)
[2020-02-26] MEDS: ROPINIROLE 0.5 MG PO SCH (19:49)
[2020-02-27] MEDS: Omeprazole 20 MG Cap.CR PO SCH (06:08)
[2020-02-27] MEDS: Acetaminophen 325 MG Tab PO SCH ×3 (09:33→19:40)
[2020-02-27] MEDS: Vitamin B Complex Tab PO SCH (09:33)
[2020-02-27] MEDS: Gabapentin 100 MG Cap (OWN SUPPLY) PO SCH ×2 (09:33→12:45)
[2020-02-27] MEDS: Sertraline 100 MG Tab (OWN SUPPLY) PO SCH (09:34)
[2020-02-27] MEDS: Metoprolol Succinate 25 MG Tab.ER (OWN SUPPLY) PO SCH (09:34)
[2020-02-27] MEDS: ISOSORBIDE MONONITRATE 30 MG PO SCH (09:34)
[2020-02-27] MEDS: Multivitamins with Iron/Calcium/Folic Acid/Minerals Tab PO SCH (09:34)
[2020-02-27] MEDS: Furosemide 20 MG Tab (OWN SUPPLY) PO SCH (09:34)
[2020-02-27] MEDS: Melatonin 3 MG Tab PO SCH (19:40)
[2020-02-27] MEDS: Famotidine 20 MG Tab PO SCH (19:40)
[2020-02-27] MEDS: Gabapentin 300 MG Cap (OWN SUPPLY) PO SCH (19:40)
[2020-02-27] MEDS: WARFARIN 5 MG PO SCH (19:40)
[2020-02-27] MEDS: ROPINIROLE 0.5 MG PO SCH (19:41)
[2020-02-28] MEDS: Omeprazole 20 MG Cap.CR PO SCH (06:05)
[2020-02-28] MEDS: ISOSORBIDE MONONITRATE 30 MG PO SCH (07:50)
[2020-02-28] MEDS: Gabapentin 100 MG Cap (OWN SUPPLY) PO SCH ×2 (07:50→12:33)
[2020-02-28] MEDS: Multivitamins with Iron/Calcium/Folic Acid/Minerals Tab PO SCH (07:51)
[2020-02-28] MEDS: Metoprolol Succinate 25 MG Tab.ER (OWN SUPPLY) PO SCH (07:51)
[2020-02-28] MEDS: Ferrous Sulfate 325 MG Tab PO SCH (07:51)
[2020-02-28] MEDS: Acetaminophen 325 MG Tab PO SCH ×3 (07:51→19:31)
[2020-02-28] MEDS: Sertraline 100 MG Tab (OWN SUPPLY) PO SCH (07:51)
[2020-02-28] MEDS: Vitamin B Complex Tab PO SCH (07:51)
[2020-02-28] MEDS: Furosemide 20 MG Tab (OWN SUPPLY) PO SCH (07:53)
[2020-02-28] MEDS: Gabapentin 300 MG Cap (OWN SUPPLY) PO SCH (19:31)
[2020-02-28] MEDS: Famotidine 20 MG Tab PO SCH (19:31)
[2020-02-28] MEDS: WARFARIN 5 MG PO SCH (19:32)
[2020-02-28] MEDS: ROPINIROLE 0.5 MG PO SCH (19:32)
[2020-02-28] MEDS: Melatonin 3 MG Tab PO SCH (19:34)
[2020-02-29] MEDS: Omeprazole 20 MG Cap.CR PO SCH (06:27)
--- NOTE | 2020-02-29 08:25 | PCM.SN.2 ---
- Free Text/Narrative Note: UA completed for UTI symptoms. Will start patient on Macrobid 100 mg BID for 7 days per ACOG guidelines. Await C/S results.
[2020-02-29] MEDS ORDERED: Nitrofurantoin Monohydrate/Macrocrystalline 100 MG Cap PO SCH (08:30)
[2020-02-29] MEDS: Gabapentin 100 MG Cap (OWN SUPPLY) PO SCH ×2 (08:58→12:35)
[2020-02-29] MEDS: ISOSORBIDE MONONITRATE 30 MG PO SCH (09:00)
[2020-02-29] MEDS: Metoprolol Succinate 25 MG Tab.ER (OWN SUPPLY) PO SCH (09:01)
[2020-02-29] MEDS: Multivitamins with Iron/Calcium/Folic Acid/Minerals Tab PO SCH (09:01)
[2020-02-29] MEDS: Sertraline 100 MG Tab (OWN SUPPLY) PO SCH (09:01)
[2020-02-29] MEDS: Furosemide 20 MG Tab (OWN SUPPLY) PO SCH (09:01)
[2020-02-29] MEDS: Vitamin B Complex Tab PO SCH (09:02)
[2020-02-29] MEDS: Acetaminophen 325 MG Tab PO SCH ×3 (09:02→20:11)
--- NOTE | 2020-02-29 14:06 | PCM.SN.2 ---
- Free Text/Narrative Note: Contacted by Pharmacy to recheck CMP for liver and kidney function for medication management. Will order CMP today.
[2020-02-29 15:36] LABS: ANION GAP 8.7 mmol/L (10-20)
[2020-02-29] MEDS: WARFARIN 5 MG PO SCH (20:10)
[2020-02-29] MEDS: ROPINIROLE 0.5 MG PO SCH (20:10)
[2020-02-29] MEDS: Gabapentin 300 MG Cap (OWN SUPPLY) PO SCH (20:10)
[2020-02-29] MEDS: Melatonin 3 MG Tab PO SCH (20:11)
[2020-02-29] MEDS: Ciprofloxacin 500 MG Tab PO SCH (20:11)
[2020-02-29] MEDS: Famotidine 20 MG Tab PO SCH (20:11)
[2020-03-01] MEDS: Omeprazole 20 MG Cap.CR PO SCH (06:01)
[2020-03-01] MEDS: Gabapentin 100 MG Cap (OWN SUPPLY) PO SCH ×2 (08:49→12:17)
[2020-03-01] MEDS: Metoprolol Succinate 25 MG Tab.ER (OWN SUPPLY) PO SCH (08:50)
[2020-03-01] MEDS: Sertraline 100 MG Tab (OWN SUPPLY) PO SCH (08:50)
[2020-03-01] MEDS: Vitamin B Complex Tab PO SCH (08:50)
[2020-03-01] MEDS: Furosemide 20 MG Tab (OWN SUPPLY) PO SCH (08:51)
[2020-03-01] MEDS: ISOSORBIDE MONONITRATE 30 MG PO SCH (08:51)
[2020-03-01] MEDS: Ferrous Sulfate 325 MG Tab PO SCH (08:52)
[2020-03-01] MEDS: Multivitamins with Iron/Calcium/Folic Acid/Minerals Tab PO SCH (08:52)
[2020-03-01] MEDS: Acetaminophen 325 MG Tab PO SCH ×3 (08:52→20:30)
[2020-03-01] MEDS: Gabapentin 300 MG Cap (OWN SUPPLY) PO SCH (20:26)
[2020-03-01] MEDS: WARFARIN 5 MG PO SCH (20:29)
[2020-03-01] MEDS: ROPINIROLE 0.5 MG PO SCH (20:29)
[2020-03-01] MEDS: Famotidine 20 MG Tab PO SCH (20:30)
[2020-03-01] MEDS: Melatonin 3 MG Tab PO SCH (20:30)
[2020-03-01] MEDS: Ciprofloxacin 500 MG Tab PO SCH (20:30)
[2020-03-02] MEDS: Omeprazole 20 MG Cap.CR PO SCH (06:30)
[2020-03-02] MEDS: ISOSORBIDE MONONITRATE 30 MG PO SCH (08:31)
[2020-03-02] MEDS: Furosemide 20 MG Tab (OWN SUPPLY) PO SCH (08:31)
[2020-03-02] MEDS: Metoprolol Succinate 25 MG Tab.ER (OWN SUPPLY) PO SCH (08:32)
[2020-03-02] MEDS: Multivitamins with Iron/Calcium/Folic Acid/Minerals Tab PO SCH (08:33)
[2020-03-02] MEDS: Sertraline 100 MG Tab (OWN SUPPLY) PO SCH (08:33)
[2020-03-02] MEDS: Vitamin B Complex Tab PO SCH (08:33)
[2020-03-02] MEDS: Acetaminophen 325 MG Tab PO SCH ×3 (08:33→19:39)
[2020-03-02] MEDS: Gabapentin 100 MG Cap (OWN SUPPLY) PO SCH ×2 (08:34→13:11)
[2020-03-02] MEDS: Gabapentin 300 MG Cap (OWN SUPPLY) PO SCH (19:38)
[2020-03-02] MEDS: Famotidine 20 MG Tab PO SCH (19:39)
[2020-03-02] MEDS: Ciprofloxacin 500 MG Tab PO SCH (19:39)
[2020-03-02] MEDS: Melatonin 3 MG Tab PO SCH (19:39)
[2020-03-02] MEDS: ROPINIROLE 0.5 MG PO SCH (19:40)
[2020-03-02] MEDS: WARFARIN 5 MG PO SCH (19:40)
[2020-03-03] MEDS: Omeprazole 20 MG Cap.CR PO SCH (06:27)
[2020-03-03] MEDS: Gabapentin 100 MG Cap (OWN SUPPLY) PO SCH ×2 (08:39→12:43)
[2020-03-03] MEDS: ISOSORBIDE MONONITRATE 30 MG PO SCH (08:39)
[2020-03-03] MEDS: Furosemide 20 MG Tab (OWN SUPPLY) PO SCH (08:39)
[2020-03-03] MEDS: Metoprolol Succinate 25 MG Tab.ER (OWN SUPPLY) PO SCH (08:40)
[2020-03-03] MEDS: Acetaminophen 325 MG Tab PO SCH ×3 (08:40→21:10)
[2020-03-03] MEDS: Sertraline 100 MG Tab (OWN SUPPLY) PO SCH (08:40)
[2020-03-03] MEDS: Multivitamins with Iron/Calcium/Folic Acid/Minerals Tab PO SCH (08:41)
[2020-03-03] MEDS: Vitamin B Complex Tab PO SCH (08:41)
[2020-03-03] MEDS: Ferrous Sulfate 325 MG Tab PO SCH (08:41)
[2020-03-03] MEDS: WARFARIN 5 MG PO SCH (21:07)
[2020-03-03] MEDS: Gabapentin 300 MG Cap (OWN SUPPLY) PO SCH (21:07)
[2020-03-03] MEDS: ROPINIROLE 0.5 MG PO SCH (21:07)
[2020-03-03] MEDS: Famotidine 20 MG Tab PO SCH (21:10)
[2020-03-03] MEDS: Ciprofloxacin 500 MG Tab PO SCH (21:11)
[2020-03-03] MEDS: Melatonin 3 MG Tab PO SCH (21:11)
[2020-03-04] MEDS: Omeprazole 20 MG Cap.CR PO SCH (06:12)
[2020-03-04] MEDS: Gabapentin 100 MG Cap (OWN SUPPLY) PO SCH ×2 (08:34→12:36)
[2020-03-04] MEDS: Acetaminophen 325 MG Tab PO SCH ×3 (08:35→19:23)
[2020-03-04] MEDS: Multivitamins with Iron/Calcium/Folic Acid/Minerals Tab PO SCH (08:35)
[2020-03-04] MEDS: Vitamin B Complex Tab PO SCH (08:35)
[2020-03-04] MEDS: Furosemide 20 MG Tab (OWN SUPPLY) PO SCH (08:36)
[2020-03-04] MEDS: Sertraline 100 MG Tab (OWN SUPPLY) PO SCH (08:36)
[2020-03-04] MEDS: Metoprolol Succinate 25 MG Tab.ER (OWN SUPPLY) PO SCH (08:37)
[2020-03-04] MEDS: ISOSORBIDE MONONITRATE 30 MG PO SCH (08:38)
[2020-03-04] MEDS: ROPINIROLE 0.5 MG PO SCH (19:23)
[2020-03-04] MEDS: Famotidine 20 MG Tab PO SCH (19:23)
[2020-03-04] MEDS: WARFARIN 5 MG PO SCH (19:23)
[2020-03-04] MEDS: Melatonin 3 MG Tab PO SCH (19:24)
[2020-03-04] MEDS: Ciprofloxacin 500 MG Tab PO SCH (19:24)
[2020-03-04] MEDS: Gabapentin 300 MG Cap (OWN SUPPLY) PO SCH (19:24)
[2020-03-05] MEDS: Omeprazole 20 MG Cap.CR PO SCH (07:07)
[2020-03-05] MEDS: Vitamin B Complex Tab PO SCH (07:49)
[2020-03-05] MEDS: Furosemide 20 MG Tab (OWN SUPPLY) PO SCH (07:49)
[2020-03-05] MEDS: Gabapentin 100 MG Cap (OWN SUPPLY) PO SCH ×2 (07:49→12:34)
[2020-03-05] MEDS: Sertraline 100 MG Tab (OWN SUPPLY) PO SCH (07:49)
[2020-03-05] MEDS: Multivitamins with Iron/Calcium/Folic Acid/Minerals Tab PO SCH (07:49)
[2020-03-05] MEDS: Metoprolol Succinate 25 MG Tab.ER (OWN SUPPLY) PO SCH (07:49)
[2020-03-05] MEDS: Ferrous Sulfate 325 MG Tab PO SCH (07:49)
[2020-03-05] MEDS: ISOSORBIDE MONONITRATE 30 MG PO SCH (07:49)
[2020-03-05] MEDS: Acetaminophen 325 MG Tab PO SCH ×3 (07:49→19:14)
[2020-03-05] MEDS: Famotidine 20 MG Tab PO SCH (19:13)
[2020-03-05] MEDS: Melatonin 3 MG Tab PO SCH (19:14)
[2020-03-05] MEDS: Gabapentin 300 MG Cap (OWN SUPPLY) PO SCH (19:14)
[2020-03-05] MEDS: WARFARIN 5 MG PO SCH (19:14)
[2020-03-05] MEDS: ROPINIROLE 0.5 MG PO SCH (19:14)
[2020-03-06] MEDS: Omeprazole 20 MG Cap.CR PO SCH (06:34)
[2020-03-06] MEDS: Calcium Carbonate 750 MG Tab.Chew PO PRN (08:37)
[2020-03-06] MEDS: Vitamin B Complex Tab PO SCH (08:37)
[2020-03-06] MEDS: Multivitamins with Iron/Calcium/Folic Acid/Minerals Tab PO SCH (08:37)
[2020-03-06] MEDS: Furosemide 20 MG Tab (OWN SUPPLY) PO SCH (08:37)
[2020-03-06] MEDS: Acetaminophen 325 MG Tab PO SCH ×3 (08:37→19:23)
[2020-03-06] MEDS: Gabapentin 100 MG Cap (OWN SUPPLY) PO SCH ×2 (08:37→12:21)
[2020-03-06] MEDS: Sertraline 100 MG Tab (OWN SUPPLY) PO SCH (08:38)
[2020-03-06] MEDS: Metoprolol Succinate 25 MG Tab.ER (OWN SUPPLY) PO SCH (08:38)
[2020-03-06] MEDS: ISOSORBIDE MONONITRATE 30 MG PO SCH (08:38)
[2020-03-06] MEDS: Famotidine 20 MG Tab PO SCH (19:23)
[2020-03-06] MEDS: Melatonin 3 MG Tab PO SCH (19:23)
[2020-03-06] MEDS: Gabapentin 300 MG Cap (OWN SUPPLY) PO SCH (19:23)
[2020-03-06] MEDS: ROPINIROLE 0.5 MG PO SCH (19:24)
[2020-03-06] MEDS: WARFARIN 5 MG PO SCH (19:24)
[2020-03-07] MEDS: Omeprazole 20 MG Cap.CR PO SCH (06:31)
[2020-03-07] MEDS: Acetaminophen 325 MG Tab PO SCH ×3 (08:21→19:34)
[2020-03-07] MEDS: Ferrous Sulfate 325 MG Tab PO SCH (08:21)
[2020-03-07] MEDS: Furosemide 20 MG Tab (OWN SUPPLY) PO SCH (08:21)
[2020-03-07] MEDS: Vitamin B Complex Tab PO SCH (08:21)
[2020-03-07] MEDS: Gabapentin 100 MG Cap (OWN SUPPLY) PO SCH ×2 (08:21→13:34)
[2020-03-07] MEDS: Multivitamins with Iron/Calcium/Folic Acid/Minerals Tab PO SCH (08:21)
[2020-03-07] MEDS: Metoprolol Succinate 25 MG Tab.ER (OWN SUPPLY) PO SCH (08:21)
[2020-03-07] MEDS: Sertraline 100 MG Tab (OWN SUPPLY) PO SCH (08:22)
[2020-03-07] MEDS: ISOSORBIDE MONONITRATE 30 MG PO SCH (08:22)
[2020-03-07] MEDS: Gabapentin 300 MG Cap (OWN SUPPLY) PO SCH (19:33)
[2020-03-07] MEDS: Melatonin 3 MG Tab PO SCH (19:33)
[2020-03-07] MEDS: Famotidine 20 MG Tab PO SCH (19:33)
[2020-03-07] MEDS: WARFARIN 5 MG PO SCH (19:34)
[2020-03-07] MEDS: ROPINIROLE 0.5 MG PO SCH (19:34)
[2020-03-08] MEDS: Omeprazole 20 MG Cap.CR PO SCH (06:18)
[2020-03-08] MEDS: Furosemide 20 MG Tab (OWN SUPPLY) PO SCH (07:55)
[2020-03-08] MEDS: Vitamin B Complex Tab PO SCH (07:55)
[2020-03-08] MEDS: Multivitamins with Iron/Calcium/Folic Acid/Minerals Tab PO SCH (07:55)
[2020-03-08] MEDS: Gabapentin 100 MG Cap (OWN SUPPLY) PO SCH ×2 (07:55→13:13)
[2020-03-08] MEDS: ISOSORBIDE MONONITRATE 30 MG PO SCH (07:56)
[2020-03-08] MEDS: Sertraline 100 MG Tab (OWN SUPPLY) PO SCH (07:56)
[2020-03-08] MEDS: Acetaminophen 325 MG Tab PO SCH ×3 (07:56→20:18)
[2020-03-08] MEDS: Metoprolol Succinate 25 MG Tab.ER (OWN SUPPLY) PO SCH (07:56)
[2020-03-08] MEDS: Gabapentin 300 MG Cap (OWN SUPPLY) PO SCH (20:17)
[2020-03-08] MEDS: WARFARIN 5 MG PO SCH (20:18)
[2020-03-08] MEDS: Famotidine 20 MG Tab PO SCH (20:18)
[2020-03-08] MEDS: Melatonin 3 MG Tab PO SCH (20:18)
[2020-03-08] MEDS: ROPINIROLE 0.5 MG PO SCH (20:18)
[2020-03-09] MEDS: Omeprazole 20 MG Cap.CR PO SCH (06:04)
[2020-03-09] MEDS: ISOSORBIDE MONONITRATE 30 MG PO SCH (08:11)
[2020-03-09] MEDS: Sertraline 100 MG Tab (OWN SUPPLY) PO SCH (08:11)
[2020-03-09] MEDS: Furosemide 20 MG Tab (OWN SUPPLY) PO SCH (08:11)
[2020-03-09] MEDS: Metoprolol Succinate 25 MG Tab.ER (OWN SUPPLY) PO SCH (08:11)
[2020-03-09] MEDS: Gabapentin 100 MG Cap (OWN SUPPLY) PO SCH ×2 (08:11→12:18)
[2020-03-09] MEDS: Vitamin B Complex Tab PO SCH (08:12)
[2020-03-09] MEDS: Ferrous Sulfate 325 MG Tab PO SCH (08:12)
[2020-03-09] MEDS: Multivitamins with Iron/Calcium/Folic Acid/Minerals Tab PO SCH (08:12)
[2020-03-09] MEDS: Acetaminophen 325 MG Tab PO SCH ×3 (08:12→20:07)
[2020-03-09] MEDS: Gabapentin 300 MG Cap (OWN SUPPLY) PO SCH (20:07)
[2020-03-09] MEDS: Famotidine 20 MG Tab PO SCH (20:07)
[2020-03-09] MEDS: Melatonin 3 MG Tab PO SCH (20:08)
[2020-03-09] MEDS: WARFARIN 5 MG PO SCH (20:08)
[2020-03-09] MEDS: ROPINIROLE 0.5 MG PO SCH (20:08)
[2020-03-10] MEDS: Omeprazole 20 MG Cap.CR PO SCH (06:25)
[2020-03-10] MEDS: ISOSORBIDE MONONITRATE 30 MG PO SCH (08:22)
[2020-03-10] MEDS: Gabapentin 100 MG Cap (OWN SUPPLY) PO SCH ×2 (08:22→12:44)
[2020-03-10] MEDS: Sertraline 100 MG Tab (OWN SUPPLY) PO SCH (08:22)
[2020-03-10] MEDS: Furosemide 20 MG Tab (OWN SUPPLY) PO SCH (08:22)
[2020-03-10] MEDS: Metoprolol Succinate 25 MG Tab.ER (OWN SUPPLY) PO SCH (08:23)
[2020-03-10] MEDS: Vitamin B Complex Tab PO SCH (08:24)
[2020-03-10] MEDS: Multivitamins with Iron/Calcium/Folic Acid/Minerals Tab PO SCH (08:24)
[2020-03-10] MEDS: Acetaminophen 325 MG Tab PO SCH ×3 (08:24→19:55)
[2020-03-10] MEDS: WARFARIN 5 MG PO SCH (19:54)
[2020-03-10] MEDS: Gabapentin 300 MG Cap (OWN SUPPLY) PO SCH (19:54)
[2020-03-10] MEDS: Famotidine 20 MG Tab PO SCH (19:55)
[2020-03-10] MEDS: ROPINIROLE 0.5 MG PO SCH (19:55)
[2020-03-10] MEDS: Melatonin 3 MG Tab PO SCH (19:55)
[2020-03-11] MEDS: Omeprazole 20 MG Cap.CR PO SCH (06:04)
[2020-03-11] MEDS: Gabapentin 100 MG Cap (OWN SUPPLY) PO SCH ×2 (08:51→12:35)
[2020-03-11] MEDS: Furosemide 20 MG Tab (OWN SUPPLY) PO SCH (08:52)
[2020-03-11] MEDS: Metoprolol Succinate 25 MG Tab.ER (OWN SUPPLY) PO SCH (08:52)
[2020-03-11] MEDS: Acetaminophen 325 MG Tab PO SCH ×3 (08:53→20:45)
[2020-03-11] MEDS: Ferrous Sulfate 325 MG Tab PO SCH (08:53)
[2020-03-11] MEDS: Vitamin B Complex Tab PO SCH (08:53)
[2020-03-11] MEDS: ISOSORBIDE MONONITRATE 30 MG PO SCH (08:53)
[2020-03-11] MEDS: Sertraline 100 MG Tab (OWN SUPPLY) PO SCH (08:53)
[2020-03-11] MEDS: Multivitamins with Iron/Calcium/Folic Acid/Minerals Tab PO SCH (08:53)
[2020-03-11] MEDS: Gabapentin 300 MG Cap (OWN SUPPLY) PO SCH (20:42)
[2020-03-11] MEDS: ROPINIROLE 0.5 MG PO SCH (20:44)
[2020-03-11] MEDS: WARFARIN 5 MG PO SCH (20:44)
[2020-03-11] MEDS: Famotidine 20 MG Tab PO SCH (20:45)
[2020-03-11] MEDS: Melatonin 3 MG Tab PO SCH (20:45)
[2020-03-12] MEDS: Omeprazole 20 MG Cap.CR PO SCH (06:46)
[2020-03-12] MEDS: Gabapentin 100 MG Cap (OWN SUPPLY) PO SCH ×2 (08:43→12:11)
[2020-03-12] MEDS: Sertraline 100 MG Tab (OWN SUPPLY) PO SCH (08:44)
[2020-03-12] MEDS: Metoprolol Succinate 25 MG Tab.ER (OWN SUPPLY) PO SCH (08:44)
[2020-03-12] MEDS: Furosemide 20 MG Tab (OWN SUPPLY) PO SCH (08:44)
[2020-03-12] MEDS: Multivitamins with Iron/Calcium/Folic Acid/Minerals Tab PO SCH (08:45)
[2020-03-12] MEDS: ISOSORBIDE MONONITRATE 30 MG PO SCH (08:45)
[2020-03-12] MEDS: Vitamin B Complex Tab PO SCH (08:46)
[2020-03-12] MEDS: Acetaminophen 325 MG Tab PO SCH ×3 (08:46→20:17)
[2020-03-12] MEDS: Gabapentin 300 MG Cap (OWN SUPPLY) PO SCH (20:13)
[2020-03-12] MEDS: WARFARIN 5 MG PO SCH (20:15)
[2020-03-12] MEDS: ROPINIROLE 0.5 MG PO SCH (20:15)
[2020-03-12] MEDS: Melatonin 3 MG Tab PO SCH (20:16)
[2020-03-12] MEDS: Famotidine 20 MG Tab PO SCH (20:16)
[2020-03-13] MEDS: Omeprazole 20 MG Cap.CR PO SCH (06:01)
[2020-03-13] MEDS: Vitamin B Complex Tab PO SCH (08:06)
[2020-03-13] MEDS: Sertraline 100 MG Tab (OWN SUPPLY) PO SCH (08:06)
[2020-03-13] MEDS: ISOSORBIDE MONONITRATE 30 MG PO SCH (08:06)
[2020-03-13] MEDS: Gabapentin 100 MG Cap (OWN SUPPLY) PO SCH ×2 (08:06→12:15)
[2020-03-13] MEDS: Metoprolol Succinate 25 MG Tab.ER (OWN SUPPLY) PO SCH (08:07)
[2020-03-13] MEDS: Acetaminophen 325 MG Tab PO SCH ×3 (08:07→19:39)
[2020-03-13] MEDS: Furosemide 20 MG Tab (OWN SUPPLY) PO SCH (08:07)
[2020-03-13] MEDS: Multivitamins with Iron/Calcium/Folic Acid/Minerals Tab PO SCH (08:08)
[2020-03-13] MEDS: Ferrous Sulfate 325 MG Tab PO SCH (08:08)
[2020-03-13] MEDS: ROPINIROLE 0.5 MG PO SCH (19:38)
[2020-03-13] MEDS: Gabapentin 300 MG Cap (OWN SUPPLY) PO SCH (19:38)
[2020-03-13] MEDS: Melatonin 3 MG Tab PO SCH (19:39)
[2020-03-13] MEDS: WARFARIN 5 MG PO SCH (19:39)
[2020-03-13] MEDS: Famotidine 20 MG Tab PO SCH (19:39)
[2020-03-14] MEDS: Omeprazole 20 MG Cap.CR PO SCH (06:23)
[2020-03-14] MEDS: Gabapentin 100 MG Cap (OWN SUPPLY) PO SCH ×2 (08:07→13:00)
[2020-03-14] MEDS: Metoprolol Succinate 25 MG Tab.ER (OWN SUPPLY) PO SCH (08:08)
[2020-03-14] MEDS: ISOSORBIDE MONONITRATE 30 MG PO SCH (08:09)
[2020-03-14] MEDS: Multivitamins with Iron/Calcium/Folic Acid/Minerals Tab PO SCH (08:09)
[2020-03-14] MEDS: Vitamin B Complex Tab PO SCH (08:09)
[2020-03-14] MEDS: Sertraline 100 MG Tab (OWN SUPPLY) PO SCH (08:09)
[2020-03-14] MEDS: Acetaminophen 325 MG Tab PO SCH ×3 (08:09→20:31)
[2020-03-14] MEDS: Furosemide 20 MG Tab (OWN SUPPLY) PO SCH (08:09)
[2020-03-14] MEDS: ROPINIROLE 0.5 MG PO SCH (20:30)
[2020-03-14] MEDS: Gabapentin 300 MG Cap (OWN SUPPLY) PO SCH (20:30)
[2020-03-14] MEDS: WARFARIN 5 MG PO SCH (20:30)
[2020-03-14] MEDS: Famotidine 20 MG Tab PO SCH (20:31)
[2020-03-14] MEDS: Melatonin 3 MG Tab PO SCH (20:31)
[2020-03-15] MEDS: Omeprazole 20 MG Cap.CR PO SCH (06:21)
[2020-03-15] MEDS: Multivitamins with Iron/Calcium/Folic Acid/Minerals Tab PO SCH (07:44)
[2020-03-15] MEDS: Vitamin B Complex Tab PO SCH (07:44)
[2020-03-15] MEDS: Acetaminophen 325 MG Tab PO SCH ×3 (07:44→20:02)
[2020-03-15] MEDS: Sertraline 100 MG Tab (OWN SUPPLY) PO SCH (07:44)
[2020-03-15] MEDS: Ferrous Sulfate 325 MG Tab PO SCH (07:44)
[2020-03-15] MEDS: Gabapentin 100 MG Cap (OWN SUPPLY) PO SCH ×2 (07:44→12:30)
[2020-03-15] MEDS: Furosemide 20 MG Tab (OWN SUPPLY) PO SCH (07:45)
[2020-03-15] MEDS: Metoprolol Succinate 25 MG Tab.ER (OWN SUPPLY) PO SCH (07:45)
[2020-03-15] MEDS: ISOSORBIDE MONONITRATE 30 MG PO SCH (07:45)
[2020-03-15] MEDS: WARFARIN 5 MG PO SCH (20:02)
[2020-03-15] MEDS: Famotidine 20 MG Tab PO SCH (20:02)
[2020-03-15] MEDS: ROPINIROLE 0.5 MG PO SCH (20:02)
[2020-03-15] MEDS: Gabapentin 300 MG Cap (OWN SUPPLY) PO SCH (20:02)
[2020-03-15] MEDS: Melatonin 3 MG Tab PO SCH (20:02)
[2020-03-16] MEDS: Omeprazole 20 MG Cap.CR PO SCH (06:44)
[2020-03-16] MEDS: Vitamin B Complex Tab PO SCH (08:03)
[2020-03-16] MEDS: Sertraline 100 MG Tab (OWN SUPPLY) PO SCH (08:03)
[2020-03-16] MEDS: Acetaminophen 325 MG Tab PO SCH ×3 (08:03→19:28)
[2020-03-16] MEDS: Multivitamins with Iron/Calcium/Folic Acid/Minerals Tab PO SCH (08:03)
[2020-03-16] MEDS: Furosemide 20 MG Tab (OWN SUPPLY) PO SCH (08:03)
[2020-03-16] MEDS: Gabapentin 100 MG Cap (OWN SUPPLY) PO SCH ×2 (08:04→12:46)
[2020-03-16] MEDS: Metoprolol Succinate 25 MG Tab.ER (OWN SUPPLY) PO SCH (08:04)
[2020-03-16] MEDS: ISOSORBIDE MONONITRATE 30 MG PO SCH (08:04)
[2020-03-16] MEDS: WARFARIN 5 MG PO SCH (19:27)
[2020-03-16] MEDS: Gabapentin 300 MG Cap (OWN SUPPLY) PO SCH (19:27)
[2020-03-16] MEDS: ROPINIROLE 0.5 MG PO SCH (19:27)
[2020-03-16] MEDS: Melatonin 3 MG Tab PO SCH (19:28)
[2020-03-16] MEDS: Famotidine 20 MG Tab PO SCH (19:28)
[2020-03-17] MEDS: Omeprazole 20 MG Cap.CR PO SCH (06:42)
[2020-03-17] MEDS: Sertraline 100 MG Tab (OWN SUPPLY) PO SCH (08:36)
[2020-03-17] MEDS: ISOSORBIDE MONONITRATE 30 MG PO SCH (08:36)
[2020-03-17] MEDS: Gabapentin 100 MG Cap (OWN SUPPLY) PO SCH ×2 (08:36→12:40)
[2020-03-17] MEDS: Furosemide 20 MG Tab (OWN SUPPLY) PO SCH (08:36)
[2020-03-17] MEDS: Vitamin B Complex Tab PO SCH (08:37)
[2020-03-17] MEDS: Ferrous Sulfate 325 MG Tab PO SCH (08:37)
[2020-03-17] MEDS: Acetaminophen 325 MG Tab PO SCH ×3 (08:37→21:09)
[2020-03-17] MEDS: Multivitamins with Iron/Calcium/Folic Acid/Minerals Tab PO SCH (08:37)
[2020-03-17] MEDS: Metoprolol Succinate 25 MG Tab.ER (OWN SUPPLY) PO SCH (08:37)
[2020-03-17] MEDS: Gabapentin 300 MG Cap (OWN SUPPLY) PO SCH (21:07)
[2020-03-17] MEDS: WARFARIN 5 MG PO SCH (21:08)
[2020-03-17] MEDS: ROPINIROLE 0.5 MG PO SCH (21:08)
[2020-03-17] MEDS: Famotidine 20 MG Tab PO SCH (21:09)
[2020-03-17] MEDS: Melatonin 3 MG Tab PO SCH (21:09)
[2020-03-18] MEDS: Omeprazole 20 MG Cap.CR PO SCH (06:59)
[2020-03-18] MEDS: Acetaminophen 325 MG Tab PO SCH ×3 (08:18→20:25)
[2020-03-18] MEDS: Metoprolol Succinate 25 MG Tab.ER (OWN SUPPLY) PO SCH (08:18)
[2020-03-18] MEDS: Multivitamins with Iron/Calcium/Folic Acid/Minerals Tab PO SCH (08:18)
[2020-03-18] MEDS: Vitamin B Complex Tab PO SCH (08:18)
[2020-03-18] MEDS: Furosemide 20 MG Tab (OWN SUPPLY) PO SCH (08:19)
[2020-03-18] MEDS: ISOSORBIDE MONONITRATE 30 MG PO SCH (08:19)
[2020-03-18] MEDS: Sertraline 100 MG Tab (OWN SUPPLY) PO SCH (08:19)
[2020-03-18] MEDS: Gabapentin 100 MG Cap (OWN SUPPLY) PO SCH ×2 (08:20→12:58)
[2020-03-18] MEDS: Loperamide 2 MG Cap PO PRN (09:04)
[2020-03-18] MEDS: Gabapentin 300 MG Cap (OWN SUPPLY) PO SCH (20:24)
[2020-03-18] MEDS: Famotidine 20 MG Tab PO SCH (20:25)
[2020-03-18] MEDS: Melatonin 3 MG Tab PO SCH (20:25)
[2020-03-18] MEDS: ROPINIROLE 0.5 MG PO SCH (20:26)
[2020-03-18] MEDS: WARFARIN 5 MG PO SCH (20:26)
[2020-03-19] MEDS: Omeprazole 20 MG Cap.CR PO SCH (06:56)
[2020-03-19] MEDS: Gabapentin 100 MG Cap (OWN SUPPLY) PO SCH ×2 (08:26→12:11)
[2020-03-19] MEDS: Acetaminophen 325 MG Tab PO SCH ×3 (08:27→19:36)
[2020-03-19] MEDS: Multivitamins with Iron/Calcium/Folic Acid/Minerals Tab PO SCH (08:27)
[2020-03-19] MEDS: Ferrous Sulfate 325 MG Tab PO SCH (08:27)
[2020-03-19] MEDS: Vitamin B Complex Tab PO SCH (08:27)
[2020-03-19] MEDS: Furosemide 20 MG Tab (OWN SUPPLY) PO SCH (08:27)
[2020-03-19] MEDS: ISOSORBIDE MONONITRATE 30 MG PO SCH (08:28)
[2020-03-19] MEDS: Metoprolol Succinate 25 MG Tab.ER (OWN SUPPLY) PO SCH (08:28)
[2020-03-19] MEDS: Sertraline 100 MG Tab (OWN SUPPLY) PO SCH (08:28)
[2020-03-19] MEDS: ROPINIROLE 0.5 MG PO SCH (19:36)
[2020-03-19] MEDS: Melatonin 3 MG Tab PO SCH (19:36)
[2020-03-19] MEDS: Famotidine 20 MG Tab PO SCH (19:36)
[2020-03-19] MEDS: Gabapentin 300 MG Cap (OWN SUPPLY) PO SCH (19:37)
[2020-03-19] MEDS: WARFARIN 5 MG PO SCH (19:41)
[2020-03-20] MEDS: Omeprazole 20 MG Cap.CR PO SCH (06:19)
[2020-03-20] MEDS: Vitamin B Complex Tab PO SCH (08:17)
[2020-03-20] MEDS: Multivitamins with Iron/Calcium/Folic Acid/Minerals Tab PO SCH (08:17)
[2020-03-20] MEDS: Acetaminophen 325 MG Tab PO SCH ×3 (08:18→19:16)
[2020-03-20] MEDS: Metoprolol Succinate 25 MG Tab.ER (OWN SUPPLY) PO SCH (08:18)
[2020-03-20] MEDS: Gabapentin 100 MG Cap (OWN SUPPLY) PO SCH ×2 (08:18→12:50)
[2020-03-20] MEDS: ISOSORBIDE MONONITRATE 30 MG PO SCH (08:19)
[2020-03-20] MEDS: Sertraline 100 MG Tab (OWN SUPPLY) PO SCH (08:19)
[2020-03-20] MEDS: Furosemide 20 MG Tab (OWN SUPPLY) PO SCH (08:20)
--- NOTE | 2020-03-20 09:25 | PCM.PN ---
- General Info Date of Service: 03/19/20 Admission Dx/Problem (Free Text): Failure to Thrive, Bilateral LE weakness Subjective Update: Patient has done well over the last month. Advancement with physical therapy has been hit and miss. Some days she feels strong, some days she doesn't. Otherwise she is doing okay at this point. Functional Status: Reports: Pain Controlled - Review of Systems General: Reports: Weakness (lower extremities) HEENT: Reports: No Symptoms Pulmonary: Reports: No Symptoms Cardiovascular: Reports: Edema (bilateral lower extremities) Gastrointestinal: Reports: No Symptoms Skin: Reports: Other (wounds on shins, chronic) Neurological: Reports: No Symptoms Psychiatric: Reports: No Symptoms - Patient Data Vitals - Most Recent: Last Vital Signs Temp 97.3 F 03/20/20 06:00 Pulse 75 03/20/20 08:18 Resp 18 03/20/20 06:00 BP 112/72 03/20/20 08:19 Pulse Ox 90 L 03/03/20 06:53 Weight - Most Recent: 185 lb 3.2 oz I&O - Last 24 Hours: Intake & Output 03/19/20 03/20/20 03/20/20 22:59 06:59 14:59 Intake Total 400 Balance 400 Med Orders - Current: Current Medications Acetaminophen (Tylenol) 650 mg PO TID@0800,1300,2000 [facility] Last Admin: 03/20/20 08:18 Dose: 650 mg Documented by: Buspirone HCl (Buspar) 5 mg PO BID [facility] Last Admin: 03/20/20 08:20 Dose: 5 mg Documented by: Calcium Carbonate/Glycine (Tums Extra Strength) 750 mg PO TID PRN PRN Reason: Dyspepsia Last Admin: 03/06/20 08:37 Dose: 750 mg Documented by: Docusate Sodium (Colace) 100 mg PO DAILY PRN PRN Reason: Constipation Famotidine (Pepcid) 20 mg PO BEDTIME [facility] Last Admin: 03/19/20 19:36 Dose: 20 mg Documented by: Ferrous Sulfate (Ferrous Sulfate) 325 mg PO Q48H [facility] Last Admin: 03/19/20 08:27 Dose: 325 mg Documented by: Furosemide (Lasix) 20 mg PO DAILY [facility] Last Admin: 03/20/20 08:20 Dose: 20 mg Documented by: Gabapentin (Neurontin) 100 mg PO BID@0800,1300 [facility] Last Admin: 03/20/20 08:18 Dose: 100 mg Documented by: Gabapentin (Neurontin) 300 mg PO BEDTIME [facility] Last Admin: 03/19/20 19:37 Dose: 300 mg Documented by: Isosorbide Mononitrate (Imdur) 30 mg PO DAILY [facility] Last Admin: 03/20/20 08:19 Dose: 30 mg Documented by: Loperamide HCl (Imodium) 2 mg PO Q12H PRN PRN Reason: Diarrhea Last Admin: 03/18/20 09:04 Dose: 2 mg Documented by: Melatonin (Melatonin) 6 mg PO BEDTIME [facility] Last Admin: 03/19/20 19:36 Dose: 6 mg Documented by: Metoprolol Succinate (Toprol Xl) 25 mg PO DAILY [facility] Last Admin: 03/20/20 08:18 Dose: 25 mg Documented by: Miconazole (Desenex 2%) 0 gm TOP BID PRN PRN Reason: RASH UNDER BILATERAL BREASTS Multivitamins/Minerals (Thera M Plus) 1 tab PO DAILY [facility] Last Admin: 03/20/20 08:17 Dose: 1 tab Documented by: Nitroglycerin (Nitrostat) 0.4 mg SL Q5M PRN PRN Reason: Chest Pain Omeprazole (Omeprazole) 20 mg PO DAILY@0700 [facility] Last Admin: 03/20/20 06:19 Dose: 20 mg Documented by: Pharmacy Consult (Consult To Pharmacy) 1 each .XX ASDIRECTED [facility] Polyethylene Glycol (Miralax) 17 gm PO DAILY PRN PRN Reason: Constipation Ropinirole HCl (Requip) 0.5 mg PO BEDTIME [facility] Last Admin: 03/19/20 19:36 Dose: 0.5 mg Documented by: Senna/Docusate Sodium (Senna Plus) 1 tab PO DAILY PRN PRN Reason: Constipation Sertraline HCl (Zoloft) 100 mg PO DAILY [facility] Last Admin: 03/20/20 08:19 Dose: 100 mg Documented by: Vitamin B Complex (Vitamin B Complex) 1 each PO DAILY [facility] Last Admin: 03/20/20 08:17 Dose: 1 each Documented by: Warfarin Sodium (Coumadin) 5 mg PO SuMoTuWeFNetoa@2000 [facility] Last Admin: 03/19/20 19:41 Dose: 5 mg Documented by: Warfarin Sodium (Coumadin) 2.5 mg PO Th@1999 [facility] Last Admin: 03/18/20 20:26 Dose: 2.5 mg Documented by: Discontinued Medications Ciprofloxacin (Ciprofloxacin Hcl) 500 mg PO Q24H [facility] Stop: 03/04/20 20:01 Last Admin: 03/04/20 19:24 Dose: 500 mg Documented by: Famotidine (Pepcid) 20 mg PO DAILY [facility] Last Admin: 02/20/20 08:14 Dose: 20 mg Documented by: Nitrofurantoin Macrocrystals (Macrobid) 100 mg PO BID [facility] Stop: 03/07/20 08:31 Last Admin: 02/29/20 09:00 Dose: 100 mg Documented by: Omeprazole (Omeprazole) 20 mg PO DAILY [facility] Last Admin: 02/20/20 08:14 Dose: 20 mg Documented by: - Exam Quality Assessment: Supplemental Oxygen General: Alert, Oriented HEENT: EOMI Neck: Supple Lungs: Clear to Auscultation, Normal Respiratory Effort Cardiovascular: Regular Rate, Regular Rhythm GI/Abdominal Exam: Normal Bowel Sounds, Soft, Non-Tender Extremities: Pedal Edema (1+ to the mid joshi), Other (tenderness to palpation of the bilateral LE) Skin: Warm, Dry, Other (dressings over the wounds on the anterior shins, dressing appear dry) Neurological: No New Focal Deficit Psy/Mental Status: Alert, Normal Affect, Normal Mood Sepsis Event Note - Evaluation Sepsis Screening Result: No Definite Risk - Focused Exam Vital Signs: Vital Signs Temp Pulse Resp BP 03/20/20 08:19 112/72 03/20/20 08:18 75 112/72 03/20/20 06:00 97.3 F 18 - Problem List Review Problem List Initiated/Reviewed/Updated: Yes - My Orders Last 24 Hours: My Active Orders 04/12/20 07:00 INR,PT,PROTHROMBIN TIME [COAG] Q28D 05/10/20 07:00 INR,PT,PROTHROMBIN TIME [COAG] Q28D 06/07/20 07:00 INR,PT,PROTHROMBIN TIME [COAG] Q28D 07/05/20 07:00 INR,PT,PROTHROMBIN TIME [COAG] Q28D 08/02/20 07:00 INR,PT,PROTHROMBIN TIME [COAG] Q28D 08/30/20 07:00 INR,PT,PROTHROMBIN TIME [COAG] Q28D 09/27/20 07:00 INR,PT,PROTHROMBIN TIME [COAG] Q28D 10/25/20 07:00 INR,PT,PROTHROMBIN TIME [COAG] Q28D - Assessment Assessment:: Failure to Thrive Chronic Leg Weakness - Patient is long-term swing bed stay for assistance with ADLs due to the above. Plan: - Continue regular daily care is as previously prescribed - Continue physical therapy as previously prescribed Breast Cancer, s/p lumpectomy - plan for follow-up with oncology as previously planned (repeat breast exam every 6 months, f/u visit with one in Dec 2020 with mammo) HTN - continue metoprolol 25mg daily GERD - continue omeprazole 20mg daily, prn pepcid 20mg, prn tums Anxiety/Depression - continue zoloft 100mg daily, Buspar 5mg BID Angina - continue Imdur 30mg daily, prn Nitro Restless legs - Requip 0.5mg at bedtime Chronic pain - Gabapentin 100mg am and noon, 300mg at supper Hx DVT - continue Warfarin, serial INR per pharmacy Peripheral edema - continue Lasix 20mg daily Constipation - continue colace 100mg dialy, prn mirilax Fe-def anemia - continue iron 325mg e/o day Insomnia - continue melatonin 3mg at bedtime Chronic respiratoryfailure - continue supplemental O2 Fungal rash - continue prn miconazole
[2020-03-20] MEDS: ROPINIROLE 0.5 MG PO SCH (19:15)
[2020-03-20] MEDS: Melatonin 3 MG Tab PO SCH (19:15)
[2020-03-20] MEDS: Gabapentin 300 MG Cap (OWN SUPPLY) PO SCH (19:15)
[2020-03-20] MEDS: WARFARIN 5 MG PO SCH (19:15)
[2020-03-20] MEDS: Famotidine 20 MG Tab PO SCH (19:16)
[2020-03-21] MEDS: Omeprazole 20 MG Cap.CR PO SCH (06:21)
[2020-03-21] MEDS: Gabapentin 100 MG Cap (OWN SUPPLY) PO SCH ×2 (07:48→12:26)
[2020-03-21] MEDS: Metoprolol Succinate 25 MG Tab.ER (OWN SUPPLY) PO SCH (07:49)
[2020-03-21] MEDS: ISOSORBIDE MONONITRATE 30 MG PO SCH (07:50)
[2020-03-21] MEDS: Multivitamins with Iron/Calcium/Folic Acid/Minerals Tab PO SCH (07:51)
[2020-03-21] MEDS: Vitamin B Complex Tab PO SCH (07:51)
[2020-03-21] MEDS: Acetaminophen 325 MG Tab PO SCH ×3 (07:51→19:19)
[2020-03-21] MEDS: Ferrous Sulfate 325 MG Tab PO SCH (07:51)
[2020-03-21] MEDS: Sertraline 100 MG Tab (OWN SUPPLY) PO SCH (07:54)
[2020-03-21] MEDS: Furosemide 20 MG Tab (OWN SUPPLY) PO SCH (07:54)
[2020-03-21] MEDS: WARFARIN 5 MG PO SCH (19:19)
[2020-03-21] MEDS: Famotidine 20 MG Tab PO SCH (19:19)
[2020-03-21] MEDS: ROPINIROLE 0.5 MG PO SCH (19:19)
[2020-03-21] MEDS: Melatonin 3 MG Tab PO SCH (19:19)
[2020-03-21] MEDS: Gabapentin 300 MG Cap (OWN SUPPLY) PO SCH (19:19)
[2020-03-22] MEDS: Omeprazole 20 MG Cap.CR PO SCH (06:18)
[2020-03-22] MEDS: ISOSORBIDE MONONITRATE 30 MG PO SCH (08:34)
[2020-03-22] MEDS: Furosemide 20 MG Tab (OWN SUPPLY) PO SCH (08:35)
[2020-03-22] MEDS: Metoprolol Succinate 25 MG Tab.ER (OWN SUPPLY) PO SCH (08:35)
[2020-03-22] MEDS: Sertraline 100 MG Tab (OWN SUPPLY) PO SCH (08:35)
[2020-03-22] MEDS: Gabapentin 100 MG Cap (OWN SUPPLY) PO SCH ×2 (08:36→13:51)
[2020-03-22] MEDS: Acetaminophen 325 MG Tab PO SCH ×3 (08:36→19:26)
[2020-03-22] MEDS: Multivitamins with Iron/Calcium/Folic Acid/Minerals Tab PO SCH (08:37)
[2020-03-22] MEDS: Vitamin B Complex Tab PO SCH (08:37)
[2020-03-22] MEDS: Melatonin 3 MG Tab PO SCH (19:26)
[2020-03-22] MEDS: ROPINIROLE 0.5 MG PO SCH (19:26)
[2020-03-22] MEDS: WARFARIN 5 MG PO SCH (19:26)
[2020-03-22] MEDS: Gabapentin 300 MG Cap (OWN SUPPLY) PO SCH (19:26)
[2020-03-22] MEDS: Famotidine 20 MG Tab PO SCH (19:27)
[2020-03-23] MEDS: Omeprazole 20 MG Cap.CR PO SCH (06:03)
[2020-03-23] MEDS: Metoprolol Succinate 25 MG Tab.ER (OWN SUPPLY) PO SCH (07:54)
[2020-03-23] MEDS: ISOSORBIDE MONONITRATE 30 MG PO SCH (07:54)
[2020-03-23] MEDS: Vitamin B Complex Tab PO SCH (07:54)
[2020-03-23] MEDS: Ferrous Sulfate 325 MG Tab PO SCH (07:54)
[2020-03-23] MEDS: Multivitamins with Iron/Calcium/Folic Acid/Minerals Tab PO SCH (07:54)
[2020-03-23] MEDS: Gabapentin 100 MG Cap (OWN SUPPLY) PO SCH ×2 (07:54→14:22)
[2020-03-23] MEDS: Acetaminophen 325 MG Tab PO SCH ×3 (07:55→21:15)
[2020-03-23] MEDS: Sertraline 100 MG Tab (OWN SUPPLY) PO SCH (07:55)
[2020-03-23] MEDS: Furosemide 20 MG Tab (OWN SUPPLY) PO SCH (07:55)
[2020-03-23] MEDS: Gabapentin 300 MG Cap (OWN SUPPLY) PO SCH (21:14)
[2020-03-23] MEDS: ROPINIROLE 0.5 MG PO SCH (21:14)
[2020-03-23] MEDS: WARFARIN 5 MG PO SCH (21:14)
[2020-03-23] MEDS: Famotidine 20 MG Tab PO SCH (21:15)
[2020-03-23] MEDS: Melatonin 3 MG Tab PO SCH (21:15)
[2020-03-24] MEDS: Omeprazole 20 MG Cap.CR PO SCH (06:34)
[2020-03-24] MEDS: Multivitamins with Iron/Calcium/Folic Acid/Minerals Tab PO SCH (07:48)
[2020-03-24] MEDS: Acetaminophen 325 MG Tab PO SCH ×3 (07:48→19:35)
[2020-03-24] MEDS: Gabapentin 100 MG Cap (OWN SUPPLY) PO SCH ×2 (07:48→12:55)
[2020-03-24] MEDS: Vitamin B Complex Tab PO SCH (07:48)
[2020-03-24] MEDS: Furosemide 20 MG Tab (OWN SUPPLY) PO SCH (07:49)
[2020-03-24] MEDS: Metoprolol Succinate 25 MG Tab.ER (OWN SUPPLY) PO SCH (07:49)
[2020-03-24] MEDS: Sertraline 100 MG Tab (OWN SUPPLY) PO SCH (07:49)
[2020-03-24] MEDS: ISOSORBIDE MONONITRATE 30 MG PO SCH (07:49)
[2020-03-24] MEDS: Gabapentin 300 MG Cap (OWN SUPPLY) PO SCH (19:34)
[2020-03-24] MEDS: Melatonin 3 MG Tab PO SCH (19:35)
[2020-03-24] MEDS: Famotidine 20 MG Tab PO SCH (19:35)
[2020-03-24] MEDS: ROPINIROLE 0.5 MG PO SCH (19:35)
[2020-03-24] MEDS: WARFARIN 5 MG PO SCH (19:35)
[2020-03-25] MEDS: Omeprazole 20 MG Cap.CR PO SCH (08:01)
[2020-03-25] MEDS: Gabapentin 100 MG Cap (OWN SUPPLY) PO SCH ×2 (08:01→12:13)
[2020-03-25] MEDS: Vitamin B Complex Tab PO SCH (08:02)
[2020-03-25] MEDS: Ferrous Sulfate 325 MG Tab PO SCH (08:02)
[2020-03-25] MEDS: Multivitamins with Iron/Calcium/Folic Acid/Minerals Tab PO SCH (08:02)
[2020-03-25] MEDS: Metoprolol Succinate 25 MG Tab.ER (OWN SUPPLY) PO SCH (08:02)
[2020-03-25] MEDS: ISOSORBIDE MONONITRATE 30 MG PO SCH (08:02)
[2020-03-25] MEDS: Acetaminophen 325 MG Tab PO SCH ×3 (08:02→20:03)
[2020-03-25] MEDS: Sertraline 100 MG Tab (OWN SUPPLY) PO SCH (08:03)
[2020-03-25] MEDS: Furosemide 20 MG Tab (OWN SUPPLY) PO SCH (08:03)
[2020-03-25] MEDS: Gabapentin 300 MG Cap (OWN SUPPLY) PO SCH (20:02)
[2020-03-25] MEDS: Melatonin 3 MG Tab PO SCH (20:03)
[2020-03-25] MEDS: ROPINIROLE 0.5 MG PO SCH (20:03)
[2020-03-25] MEDS: WARFARIN 5 MG PO SCH (20:03)
[2020-03-25] MEDS: Famotidine 20 MG Tab PO SCH (20:04)
[2020-03-26] MEDS: Omeprazole 20 MG Cap.CR PO SCH (06:28)
[2020-03-26] MEDS: Sertraline 100 MG Tab (OWN SUPPLY) PO SCH (08:08)
[2020-03-26] MEDS: Gabapentin 100 MG Cap (OWN SUPPLY) PO SCH ×2 (08:08→12:15)
[2020-03-26] MEDS: Metoprolol Succinate 25 MG Tab.ER (OWN SUPPLY) PO SCH (08:08)
[2020-03-26] MEDS: Vitamin B Complex Tab PO SCH (08:09)
[2020-03-26] MEDS: Furosemide 20 MG Tab (OWN SUPPLY) PO SCH (08:09)
[2020-03-26] MEDS: ISOSORBIDE MONONITRATE 30 MG PO SCH (08:09)
[2020-03-26] MEDS: Multivitamins with Iron/Calcium/Folic Acid/Minerals Tab PO SCH (08:10)
[2020-03-26] MEDS: Acetaminophen 325 MG Tab PO SCH ×3 (08:10→20:39)
--- NOTE | 2020-03-26 12:06 | PCM.SN.2 ---
- Free Text/Narrative Note: 02/29/2020 UA was ordered for dysuria and foul odor to urine. UA positive for Acute cystitis with hematuria. Culture send for sens. for a diagnosis of Acute cystitis with hematuria.
[2020-03-26] MEDS: Gabapentin 300 MG Cap (OWN SUPPLY) PO SCH (20:30)
[2020-03-26] MEDS: WARFARIN 5 MG PO SCH (20:33)
[2020-03-26] MEDS: ROPINIROLE 0.5 MG PO SCH (20:33)
[2020-03-26] MEDS: Melatonin 3 MG Tab PO SCH (20:39)
[2020-03-26] MEDS: Famotidine 20 MG Tab PO SCH (20:39)
[2020-03-27] MEDS: Omeprazole 20 MG Cap.CR PO SCH (06:56)
[2020-03-27] MEDS: Furosemide 20 MG Tab (OWN SUPPLY) PO SCH (08:39)
[2020-03-27] MEDS: ISOSORBIDE MONONITRATE 30 MG PO SCH (08:39)
[2020-03-27] MEDS: Vitamin B Complex Tab PO SCH (08:40)
[2020-03-27] MEDS: Ferrous Sulfate 325 MG Tab PO SCH (08:40)
[2020-03-27] MEDS: Sertraline 100 MG Tab (OWN SUPPLY) PO SCH (08:40)
[2020-03-27] MEDS: Multivitamins with Iron/Calcium/Folic Acid/Minerals Tab PO SCH (08:40)
[2020-03-27] MEDS: Metoprolol Succinate 25 MG Tab.ER (OWN SUPPLY) PO SCH (08:40)
[2020-03-27] MEDS: Gabapentin 100 MG Cap (OWN SUPPLY) PO SCH ×2 (08:41→13:52)
[2020-03-27] MEDS: Acetaminophen 325 MG Tab PO SCH ×3 (08:41→20:11)
[2020-03-27] MEDS: Melatonin 3 MG Tab PO SCH (20:10)
[2020-03-27] MEDS: Famotidine 20 MG Tab PO SCH (20:10)
[2020-03-27] MEDS: ROPINIROLE 0.5 MG PO SCH (20:11)
[2020-03-27] MEDS: WARFARIN 5 MG PO SCH (20:11)
[2020-03-27] MEDS: Gabapentin 300 MG Cap (OWN SUPPLY) PO SCH (20:12)
[2020-03-28] MEDS: Omeprazole 20 MG Cap.CR PO SCH (06:07)
[2020-03-28] MEDS: Acetaminophen 325 MG Tab PO SCH ×3 (08:28→19:55)
[2020-03-28] MEDS: Furosemide 20 MG Tab (OWN SUPPLY) PO SCH (08:28)
[2020-03-28] MEDS: Vitamin B Complex Tab PO SCH (08:28)
[2020-03-28] MEDS: Multivitamins with Iron/Calcium/Folic Acid/Minerals Tab PO SCH (08:28)
[2020-03-28] MEDS: ISOSORBIDE MONONITRATE 30 MG PO SCH (08:28)
[2020-03-28] MEDS: Metoprolol Succinate 25 MG Tab.ER (OWN SUPPLY) PO SCH (08:29)
[2020-03-28] MEDS: Sertraline 100 MG Tab (OWN SUPPLY) PO SCH (08:29)
[2020-03-28] MEDS: Gabapentin 100 MG Cap (OWN SUPPLY) PO SCH ×2 (08:30→12:15)
[2020-03-28] MEDS: Gabapentin 300 MG Cap (OWN SUPPLY) PO SCH (19:55)
[2020-03-28] MEDS: Melatonin 3 MG Tab PO SCH (19:55)
[2020-03-28] MEDS: Famotidine 20 MG Tab PO SCH (19:55)
[2020-03-28] MEDS: WARFARIN 5 MG PO SCH (19:56)
[2020-03-28] MEDS: ROPINIROLE 0.5 MG PO SCH (20:01)
[2020-03-29] MEDS: Omeprazole 20 MG Cap.CR PO SCH (06:08)
[2020-03-29] MEDS: Gabapentin 100 MG Cap (OWN SUPPLY) PO SCH ×2 (07:54→12:25)
[2020-03-29] MEDS: ISOSORBIDE MONONITRATE 30 MG PO SCH (07:55)
[2020-03-29] MEDS: Sertraline 100 MG Tab (OWN SUPPLY) PO SCH (07:55)
[2020-03-29] MEDS: Furosemide 20 MG Tab (OWN SUPPLY) PO SCH (07:55)
[2020-03-29] MEDS: Metoprolol Succinate 25 MG Tab.ER (OWN SUPPLY) PO SCH (07:56)
[2020-03-29] MEDS: Acetaminophen 325 MG Tab PO SCH ×3 (07:56→20:11)
[2020-03-29] MEDS: Multivitamins with Iron/Calcium/Folic Acid/Minerals Tab PO SCH (07:56)
[2020-03-29] MEDS: Ferrous Sulfate 325 MG Tab PO SCH (07:56)
[2020-03-29] MEDS: Vitamin B Complex Tab PO SCH (07:57)
[2020-03-29] MEDS: Gabapentin 300 MG Cap (OWN SUPPLY) PO SCH (20:11)
[2020-03-29] MEDS: WARFARIN 5 MG PO SCH (20:12)
[2020-03-29] MEDS: Melatonin 3 MG Tab PO SCH (20:12)
[2020-03-29] MEDS: ROPINIROLE 0.5 MG PO SCH (20:12)
[2020-03-29] MEDS: Famotidine 20 MG Tab PO SCH (20:12)
[2020-03-30] MEDS: Omeprazole 20 MG Cap.CR PO SCH (06:41)
[2020-03-30] MEDS: Gabapentin 100 MG Cap (OWN SUPPLY) PO SCH ×2 (07:38→12:05)
[2020-03-30] MEDS: ISOSORBIDE MONONITRATE 30 MG PO SCH (07:38)
[2020-03-30] MEDS: Furosemide 20 MG Tab (OWN SUPPLY) PO SCH (07:39)
[2020-03-30] MEDS: Sertraline 100 MG Tab (OWN SUPPLY) PO SCH (07:39)
[2020-03-30] MEDS: Metoprolol Succinate 25 MG Tab.ER (OWN SUPPLY) PO SCH (07:39)
[2020-03-30] MEDS: Vitamin B Complex Tab PO SCH (07:40)
[2020-03-30] MEDS: Multivitamins with Iron/Calcium/Folic Acid/Minerals Tab PO SCH (07:40)
[2020-03-30] MEDS: Acetaminophen 325 MG Tab PO SCH ×3 (07:40→20:05)
[2020-03-30] MEDS: WARFARIN 5 MG PO SCH (20:04)
[2020-03-30] MEDS: Melatonin 3 MG Tab PO SCH (20:04)
[2020-03-30] MEDS: ROPINIROLE 0.5 MG PO SCH (20:04)
[2020-03-30] MEDS: Famotidine 20 MG Tab PO SCH (20:05)
[2020-03-30] MEDS: Gabapentin 300 MG Cap (OWN SUPPLY) PO SCH (20:05)
[2020-03-31] MEDS: Omeprazole 20 MG Cap.CR PO SCH (06:24)
[2020-03-31] MEDS: Gabapentin 100 MG Cap (OWN SUPPLY) PO SCH ×2 (09:13→12:18)
[2020-03-31] MEDS: Sertraline 100 MG Tab (OWN SUPPLY) PO SCH (09:13)
[2020-03-31] MEDS: Furosemide 20 MG Tab (OWN SUPPLY) PO SCH (09:13)
[2020-03-31] MEDS: Multivitamins with Iron/Calcium/Folic Acid/Minerals Tab PO SCH (09:14)
[2020-03-31] MEDS: Acetaminophen 325 MG Tab PO SCH ×3 (09:14→20:51)
[2020-03-31] MEDS: Ferrous Sulfate 325 MG Tab PO SCH (09:14)
[2020-03-31] MEDS: Vitamin B Complex Tab PO SCH (09:14)
[2020-03-31] MEDS: Metoprolol Succinate 25 MG Tab.ER (OWN SUPPLY) PO SCH (09:18)
[2020-03-31] MEDS: ISOSORBIDE MONONITRATE 30 MG PO SCH (09:18)
[2020-03-31] MEDS: Gabapentin 300 MG Cap (OWN SUPPLY) PO SCH (20:42)
[2020-03-31] MEDS: WARFARIN 5 MG PO SCH (20:42)
[2020-03-31] MEDS: ROPINIROLE 0.5 MG PO SCH (20:42)
[2020-03-31] MEDS: Famotidine 20 MG Tab PO SCH (20:51)
[2020-03-31] MEDS: Melatonin 3 MG Tab PO SCH (20:51)
[2020-04-01] MEDS: Omeprazole 20 MG Cap.CR PO SCH (06:20)
[2020-04-01] MEDS: Sertraline 100 MG Tab (OWN SUPPLY) PO SCH (08:50)
[2020-04-01] MEDS: Metoprolol Succinate 25 MG Tab.ER (OWN SUPPLY) PO SCH (08:51)
[2020-04-01] MEDS: Furosemide 20 MG Tab (OWN SUPPLY) PO SCH (08:52)
[2020-04-01] MEDS: ISOSORBIDE MONONITRATE 30 MG PO SCH (08:52)
[2020-04-01] MEDS: Multivitamins with Iron/Calcium/Folic Acid/Minerals Tab PO SCH (08:53)
[2020-04-01] MEDS: Vitamin B Complex Tab PO SCH (08:53)
[2020-04-01] MEDS: Gabapentin 100 MG Cap (OWN SUPPLY) PO SCH ×2 (08:53→16:39)
[2020-04-01] MEDS: Acetaminophen 325 MG Tab PO SCH ×3 (08:53→19:47)
[2020-04-01] MEDS: Melatonin 3 MG Tab PO SCH (19:47)
[2020-04-01] MEDS: ROPINIROLE 0.5 MG PO SCH (19:47)
[2020-04-01] MEDS: Famotidine 20 MG Tab PO SCH (19:47)
[2020-04-01] MEDS: Gabapentin 300 MG Cap (OWN SUPPLY) PO SCH (19:47)
[2020-04-01] MEDS: WARFARIN 5 MG PO SCH (19:47)
[2020-04-02] MEDS: Omeprazole 20 MG Cap.CR PO SCH (06:02)
[2020-04-02] MEDS: Sertraline 100 MG Tab (OWN SUPPLY) PO SCH (08:16)
[2020-04-02] MEDS: Furosemide 20 MG Tab (OWN SUPPLY) PO SCH (08:16)
[2020-04-02] MEDS: Metoprolol Succinate 25 MG Tab.ER (OWN SUPPLY) PO SCH (08:16)
[2020-04-02] MEDS: Multivitamins with Iron/Calcium/Folic Acid/Minerals Tab PO SCH (08:17)
[2020-04-02] MEDS: Acetaminophen 325 MG Tab PO SCH ×3 (08:17→19:45)
[2020-04-02] MEDS: Vitamin B Complex Tab PO SCH (08:17)
[2020-04-02] MEDS: ISOSORBIDE MONONITRATE 30 MG PO SCH (08:17)
[2020-04-02] MEDS: Ferrous Sulfate 325 MG Tab PO SCH (08:17)
[2020-04-02] MEDS: Gabapentin 100 MG Cap (OWN SUPPLY) PO SCH ×2 (08:18→13:47)
[2020-04-02] MEDS: ROPINIROLE 0.5 MG PO SCH (19:44)
[2020-04-02] MEDS: Gabapentin 300 MG Cap (OWN SUPPLY) PO SCH (19:44)
[2020-04-02] MEDS: WARFARIN 5 MG PO SCH (19:44)
[2020-04-02] MEDS: Melatonin 3 MG Tab PO SCH (19:45)
[2020-04-02] MEDS: Famotidine 20 MG Tab PO SCH (19:45)
[2020-04-03] MEDS: Omeprazole 20 MG Cap.CR PO SCH (07:41)
[2020-04-03] MEDS: Furosemide 20 MG Tab (OWN SUPPLY) PO SCH (07:42)
[2020-04-03] MEDS: Vitamin B Complex Tab PO SCH (07:42)
[2020-04-03] MEDS: Acetaminophen 325 MG Tab PO SCH ×3 (07:42→19:20)
[2020-04-03] MEDS: Multivitamins with Iron/Calcium/Folic Acid/Minerals Tab PO SCH (07:42)
[2020-04-03] MEDS: Sertraline 100 MG Tab (OWN SUPPLY) PO SCH (07:42)
[2020-04-03] MEDS: Metoprolol Succinate 25 MG Tab.ER (OWN SUPPLY) PO SCH (07:43)
[2020-04-03] MEDS: ISOSORBIDE MONONITRATE 30 MG PO SCH (07:44)
[2020-04-03] MEDS: Gabapentin 100 MG Cap (OWN SUPPLY) PO SCH ×2 (07:44→12:29)
[2020-04-03] MEDS: Gabapentin 300 MG Cap (OWN SUPPLY) PO SCH (19:20)
[2020-04-03] MEDS: WARFARIN 5 MG PO SCH (19:20)
[2020-04-03] MEDS: ROPINIROLE 0.5 MG PO SCH (19:20)
[2020-04-03] MEDS: Melatonin 3 MG Tab PO SCH (19:20)
[2020-04-03] MEDS: Famotidine 20 MG Tab PO SCH (19:20)
[2020-04-04] MEDS: Omeprazole 20 MG Cap.CR PO SCH (08:37)
[2020-04-04] MEDS: Multivitamins with Iron/Calcium/Folic Acid/Minerals Tab PO SCH (08:38)
[2020-04-04] MEDS: Vitamin B Complex Tab PO SCH (08:38)
[2020-04-04] MEDS: Acetaminophen 325 MG Tab PO SCH ×3 (08:38→19:14)
[2020-04-04] MEDS: Ferrous Sulfate 325 MG Tab PO SCH (08:38)
[2020-04-04] MEDS: Sertraline 100 MG Tab (OWN SUPPLY) PO SCH (08:41)
[2020-04-04] MEDS: Gabapentin 100 MG Cap (OWN SUPPLY) PO SCH ×2 (08:42→12:11)
[2020-04-04] MEDS: Furosemide 20 MG Tab (OWN SUPPLY) PO SCH (08:43)
[2020-04-04] MEDS: Metoprolol Succinate 25 MG Tab.ER (OWN SUPPLY) PO SCH (08:43)
[2020-04-04] MEDS: ISOSORBIDE MONONITRATE 30 MG PO SCH (08:44)
[2020-04-04] MEDS: Melatonin 3 MG Tab PO SCH (19:14)
[2020-04-04] MEDS: Famotidine 20 MG Tab PO SCH (19:14)
[2020-04-04] MEDS: WARFARIN 5 MG PO SCH (19:14)
[2020-04-04] MEDS: Gabapentin 300 MG Cap (OWN SUPPLY) PO SCH (19:14)
[2020-04-04] MEDS: ROPINIROLE 0.5 MG PO SCH (19:14)
[2020-04-05] MEDS: Omeprazole 20 MG Cap.CR PO SCH (06:19)
[2020-04-05] MEDS: Multivitamins with Iron/Calcium/Folic Acid/Minerals Tab PO SCH (08:45)
[2020-04-05] MEDS: Furosemide 20 MG Tab (OWN SUPPLY) PO SCH (08:45)
[2020-04-05] MEDS: Acetaminophen 325 MG Tab PO SCH ×3 (08:45→19:57)
[2020-04-05] MEDS: Vitamin B Complex Tab PO SCH (08:45)
[2020-04-05] MEDS: ISOSORBIDE MONONITRATE 30 MG PO SCH (08:46)
[2020-04-05] MEDS: Metoprolol Succinate 25 MG Tab.ER (OWN SUPPLY) PO SCH (08:46)
[2020-04-05] MEDS: Gabapentin 100 MG Cap (OWN SUPPLY) PO SCH ×2 (08:47→13:21)
[2020-04-05] MEDS: Sertraline 100 MG Tab (OWN SUPPLY) PO SCH (08:47)
[2020-04-05] MEDS: WARFARIN 5 MG PO SCH (19:54)
[2020-04-05] MEDS: ROPINIROLE 0.5 MG PO SCH (19:54)
[2020-04-05] MEDS: Gabapentin 300 MG Cap (OWN SUPPLY) PO SCH (19:54)
[2020-04-05] MEDS: Famotidine 20 MG Tab PO SCH (19:57)
[2020-04-05] MEDS: Melatonin 3 MG Tab PO SCH (19:57)
[2020-04-06] MEDS: Omeprazole 20 MG Cap.CR PO SCH (06:33)
[2020-04-06] MEDS: Multivitamins with Iron/Calcium/Folic Acid/Minerals Tab PO SCH (10:00)
[2020-04-06] MEDS: Ferrous Sulfate 325 MG Tab PO SCH (10:00)
[2020-04-06] MEDS: Vitamin B Complex Tab PO SCH (10:00)
[2020-04-06] MEDS: Gabapentin 100 MG Cap (OWN SUPPLY) PO SCH ×2 (10:00→13:36)
[2020-04-06] MEDS: Acetaminophen 325 MG Tab PO SCH ×3 (10:00→20:22)
[2020-04-06] MEDS: Sertraline 100 MG Tab (OWN SUPPLY) PO SCH (10:01)
[2020-04-06] MEDS: Furosemide 20 MG Tab (OWN SUPPLY) PO SCH (10:01)
[2020-04-06] MEDS: Metoprolol Succinate 25 MG Tab.ER (OWN SUPPLY) PO SCH (10:01)
[2020-04-06] MEDS: ISOSORBIDE MONONITRATE 30 MG PO SCH (10:02)
[2020-04-06] MEDS: Calcium Carbonate 750 MG Tab.Chew PO PRN (13:36)
[2020-04-06] MEDS: Loperamide 2 MG Cap PO PRN (13:37)
[2020-04-06] MEDS: Famotidine 20 MG Tab PO SCH (20:22)
[2020-04-06] MEDS: Melatonin 3 MG Tab PO SCH (20:22)
[2020-04-06] MEDS: ROPINIROLE 0.5 MG PO SCH (20:23)
[2020-04-06] MEDS: WARFARIN 5 MG PO SCH (20:23)
[2020-04-06] MEDS: Gabapentin 300 MG Cap (OWN SUPPLY) PO SCH (20:24)
[2020-04-07] MEDS: Omeprazole 20 MG Cap.CR PO SCH (06:41)
[2020-04-07] MEDS: Sertraline 100 MG Tab (OWN SUPPLY) PO SCH (08:51)
[2020-04-07] MEDS: Metoprolol Succinate 25 MG Tab.ER (OWN SUPPLY) PO SCH (08:51)
[2020-04-07] MEDS: ISOSORBIDE MONONITRATE 30 MG PO SCH (08:52)
[2020-04-07] MEDS: Acetaminophen 325 MG Tab PO SCH ×3 (08:52→19:21)
[2020-04-07] MEDS: Multivitamins with Iron/Calcium/Folic Acid/Minerals Tab PO SCH (08:52)
[2020-04-07] MEDS: Vitamin B Complex Tab PO SCH (08:52)
[2020-04-07] MEDS: Gabapentin 100 MG Cap (OWN SUPPLY) PO SCH ×2 (08:52→12:41)
[2020-04-07] MEDS: Furosemide 20 MG Tab (OWN SUPPLY) PO SCH (08:52)
[2020-04-07] MEDS: WARFARIN 5 MG PO SCH (19:20)
[2020-04-07] MEDS: ROPINIROLE 0.5 MG PO SCH (19:20)
[2020-04-07] MEDS: Gabapentin 300 MG Cap (OWN SUPPLY) PO SCH (19:20)
[2020-04-07] MEDS: Famotidine 20 MG Tab PO SCH (19:20)
[2020-04-07] MEDS: Melatonin 3 MG Tab PO SCH (19:21)
[2020-04-08] MEDS: Omeprazole 20 MG Cap.CR PO SCH (06:37)
[2020-04-08] MEDS: Sertraline 100 MG Tab (OWN SUPPLY) PO SCH (09:00)
[2020-04-08] MEDS: Acetaminophen 325 MG Tab PO SCH ×3 (09:00→19:48)
[2020-04-08] MEDS: Gabapentin 100 MG Cap (OWN SUPPLY) PO SCH ×2 (09:00→14:02)
[2020-04-08] MEDS: Ferrous Sulfate 325 MG Tab PO SCH (09:00)
[2020-04-08] MEDS: Vitamin B Complex Tab PO SCH (09:00)
[2020-04-08] MEDS: Metoprolol Succinate 25 MG Tab.ER (OWN SUPPLY) PO SCH (09:00)
[2020-04-08] MEDS: ISOSORBIDE MONONITRATE 30 MG PO SCH (09:01)
[2020-04-08] MEDS: Furosemide 20 MG Tab (OWN SUPPLY) PO SCH (09:01)
[2020-04-08] MEDS: Multivitamins with Iron/Calcium/Folic Acid/Minerals Tab PO SCH (09:01)
[2020-04-08] MEDS: Gabapentin 300 MG Cap (OWN SUPPLY) PO SCH (19:48)
[2020-04-08] MEDS: Famotidine 20 MG Tab PO SCH (19:49)
[2020-04-08] MEDS: WARFARIN 5 MG PO SCH (19:49)
[2020-04-08] MEDS: Melatonin 3 MG Tab PO SCH (19:49)
[2020-04-08] MEDS: ROPINIROLE 0.5 MG PO SCH (19:49)
[2020-04-09] MEDS: Omeprazole 20 MG Cap.CR PO SCH (06:33)
[2020-04-09] MEDS: Gabapentin 100 MG Cap (OWN SUPPLY) PO SCH ×2 (07:53→12:29)
[2020-04-09] MEDS: Metoprolol Succinate 25 MG Tab.ER (OWN SUPPLY) PO SCH (07:54)
[2020-04-09] MEDS: ISOSORBIDE MONONITRATE 30 MG PO SCH (07:54)
[2020-04-09] MEDS: Furosemide 20 MG Tab (OWN SUPPLY) PO SCH (07:54)
[2020-04-09] MEDS: Sertraline 100 MG Tab (OWN SUPPLY) PO SCH (07:55)
[2020-04-09] MEDS: Multivitamins with Iron/Calcium/Folic Acid/Minerals Tab PO SCH (07:55)
[2020-04-09] MEDS: Acetaminophen 325 MG Tab PO SCH ×3 (07:55→19:43)
[2020-04-09] MEDS: Vitamin B Complex Tab PO SCH (07:55)
[2020-04-09] MEDS: ROPINIROLE 0.5 MG PO SCH (19:43)
[2020-04-09] MEDS: Gabapentin 300 MG Cap (OWN SUPPLY) PO SCH (19:43)
[2020-04-09] MEDS: Melatonin 3 MG Tab PO SCH (19:43)
[2020-04-09] MEDS: WARFARIN 5 MG PO SCH (19:43)
[2020-04-09] MEDS: Famotidine 20 MG Tab PO SCH (19:43)
[2020-04-10] MEDS: Omeprazole 20 MG Cap.CR PO SCH (06:20)
[2020-04-10] MEDS: Gabapentin 100 MG Cap (OWN SUPPLY) PO SCH ×2 (07:39→13:17)
[2020-04-10] MEDS: ISOSORBIDE MONONITRATE 30 MG PO SCH (07:40)
[2020-04-10] MEDS: Sertraline 100 MG Tab (OWN SUPPLY) PO SCH (07:40)
[2020-04-10] MEDS: Metoprolol Succinate 25 MG Tab.ER (OWN SUPPLY) PO SCH (07:40)
[2020-04-10] MEDS: Acetaminophen 325 MG Tab PO SCH ×3 (07:41→19:44)
[2020-04-10] MEDS: Multivitamins with Iron/Calcium/Folic Acid/Minerals Tab PO SCH (07:41)
[2020-04-10] MEDS: Vitamin B Complex Tab PO SCH (07:41)
[2020-04-10] MEDS: Furosemide 20 MG Tab (OWN SUPPLY) PO SCH (07:41)
[2020-04-10] MEDS: Ferrous Sulfate 325 MG Tab PO SCH (07:41)
[2020-04-10] MEDS: Gabapentin 300 MG Cap (OWN SUPPLY) PO SCH (19:43)
[2020-04-10] MEDS: WARFARIN 5 MG PO SCH (19:44)
[2020-04-10] MEDS: ROPINIROLE 0.5 MG PO SCH (19:44)
[2020-04-10] MEDS: Melatonin 3 MG Tab PO SCH (19:44)
[2020-04-10] MEDS: Famotidine 20 MG Tab PO SCH (19:44)
[2020-04-11] MEDS: Omeprazole 20 MG Cap.CR PO SCH (06:58)
[2020-04-11] MEDS: ISOSORBIDE MONONITRATE 30 MG PO SCH (07:33)
[2020-04-11] MEDS: Gabapentin 100 MG Cap (OWN SUPPLY) PO SCH ×2 (07:33→12:05)
[2020-04-11] MEDS: Furosemide 20 MG Tab (OWN SUPPLY) PO SCH (07:34)
[2020-04-11] MEDS: Metoprolol Succinate 25 MG Tab.ER (OWN SUPPLY) PO SCH (07:34)
[2020-04-11] MEDS: Sertraline 100 MG Tab (OWN SUPPLY) PO SCH (07:34)
[2020-04-11] MEDS: Vitamin B Complex Tab PO SCH (07:35)
[2020-04-11] MEDS: Multivitamins with Iron/Calcium/Folic Acid/Minerals Tab PO SCH (07:35)
[2020-04-11] MEDS: Acetaminophen 325 MG Tab PO SCH ×3 (07:35→19:48)
[2020-04-11] MEDS: Gabapentin 300 MG Cap (OWN SUPPLY) PO SCH (19:45)
[2020-04-11] MEDS: ROPINIROLE 0.5 MG PO SCH (19:47)
[2020-04-11] MEDS: WARFARIN 5 MG PO SCH (19:47)
[2020-04-11] MEDS: Famotidine 20 MG Tab PO SCH (19:48)
[2020-04-11] MEDS: Melatonin 3 MG Tab PO SCH (19:48)
[2020-04-12] MEDS: Omeprazole 20 MG Cap.CR PO SCH (06:11)
[2020-04-12] MEDS: Gabapentin 100 MG Cap (OWN SUPPLY) PO SCH ×2 (07:40→12:48)
[2020-04-12] MEDS: Metoprolol Succinate 25 MG Tab.ER (OWN SUPPLY) PO SCH (07:41)
[2020-04-12] MEDS: ISOSORBIDE MONONITRATE 30 MG PO SCH (07:42)
[2020-04-12] MEDS: Furosemide 20 MG Tab (OWN SUPPLY) PO SCH (07:42)
[2020-04-12] MEDS: Sertraline 100 MG Tab (OWN SUPPLY) PO SCH (07:43)
[2020-04-12] MEDS: Vitamin B Complex Tab PO SCH (07:43)
[2020-04-12] MEDS: Multivitamins with Iron/Calcium/Folic Acid/Minerals Tab PO SCH (07:43)
[2020-04-12] MEDS: Acetaminophen 325 MG Tab PO SCH ×3 (07:44→19:54)
[2020-04-12] MEDS: Ferrous Sulfate 325 MG Tab PO SCH (07:44)
[2020-04-12] MEDS: Gabapentin 300 MG Cap (OWN SUPPLY) PO SCH (19:51)
[2020-04-12] MEDS: WARFARIN 5 MG PO SCH (19:52)
[2020-04-12] MEDS: ROPINIROLE 0.5 MG PO SCH (19:53)
[2020-04-12] MEDS: Melatonin 3 MG Tab PO SCH (19:54)
[2020-04-12] MEDS: Famotidine 20 MG Tab PO SCH (19:54)
[2020-04-13] MEDS: Omeprazole 20 MG Cap.CR PO SCH (06:40)
[2020-04-13] MEDS: Multivitamins with Iron/Calcium/Folic Acid/Minerals Tab PO SCH (08:55)
[2020-04-13] MEDS: Vitamin B Complex Tab PO SCH (08:55)
[2020-04-13] MEDS: Gabapentin 100 MG Cap (OWN SUPPLY) PO SCH ×2 (08:55→15:43)
[2020-04-13] MEDS: Metoprolol Succinate 25 MG Tab.ER (OWN SUPPLY) PO SCH (08:56)
[2020-04-13] MEDS: Sertraline 100 MG Tab (OWN SUPPLY) PO SCH (08:56)
[2020-04-13] MEDS: Furosemide 20 MG Tab (OWN SUPPLY) PO SCH (08:56)
[2020-04-13] MEDS: ISOSORBIDE MONONITRATE 30 MG PO SCH (08:56)
[2020-04-13] MEDS: Acetaminophen 325 MG Tab PO SCH ×3 (08:57→19:27)
--- NOTE | 2020-04-13 10:54 | PCM.SN.2 ---
- Free Text/Narrative Note: Subjective/Obective: Page by nursing to come and take a look at leg wounds. Patient has had weeping ulcers on her bilateral anterior shins for the last couple of months. The one on the left leg has healed up quite well. Right one is much slower to heal. Patient does have quite a bit of swelling in the legs as well as pain on palpation. The left leg ulcer is completely healed over. She still has 1+ pitting edema to the level of the knee on the side. Still mildly tender with palpation and random spot from his leg. The right ulcer is larger. It is scabbed over with a small central area that is weeping. There is no surrounding erythema. This leg is also 1+ pitting with edema to the level of the knee and is tender with palpation to random spots. Assessment/Plan: Will continue wound cares as previously ordered. No sign of infection or acute cellulitis. We will increase her Lasix dose for 4 days to see if this helps expedite some of the fluid to promote the wound healing. I will plan to recheck BMP after she is done at this. Patient is going to dentist appointment tomorrow we will plan to start the double dose of Lasix on 04/15/20 with a plan to recheck the BMP on 04/19/2020. Patient and nursing staff are okay with this plan.
[2020-04-13] MEDS: Gabapentin 300 MG Cap (OWN SUPPLY) PO SCH (19:26)
[2020-04-13] MEDS: Famotidine 20 MG Tab PO SCH (19:27)
[2020-04-13] MEDS: Melatonin 3 MG Tab PO SCH (19:27)
[2020-04-13] MEDS: WARFARIN 5 MG PO SCH (19:28)
[2020-04-13] MEDS: ROPINIROLE 0.5 MG PO SCH (19:28)
[2020-04-14] MEDS: Omeprazole 20 MG Cap.CR PO SCH (06:07)
[2020-04-14] MEDS: Loperamide 2 MG Cap PO PRN (08:02)
[2020-04-14] MEDS: Ferrous Sulfate 325 MG Tab PO SCH (08:02)
[2020-04-14] MEDS: Acetaminophen 325 MG Tab PO SCH ×3 (08:03→20:09)
[2020-04-14] MEDS: ISOSORBIDE MONONITRATE 30 MG PO SCH (08:03)
[2020-04-14] MEDS: Sertraline 100 MG Tab (OWN SUPPLY) PO SCH (08:03)
[2020-04-14] MEDS: Multivitamins with Iron/Calcium/Folic Acid/Minerals Tab PO SCH (08:03)
[2020-04-14] MEDS: Furosemide 20 MG Tab (OWN SUPPLY) PO SCH (08:03)
[2020-04-14] MEDS: Vitamin B Complex Tab PO SCH (08:03)
[2020-04-14] MEDS: Gabapentin 100 MG Cap (OWN SUPPLY) PO SCH ×2 (08:04→13:48)
[2020-04-14] MEDS: Metoprolol Succinate 25 MG Tab.ER (OWN SUPPLY) PO SCH (08:04)
[2020-04-14] MEDS: Melatonin 3 MG Tab PO SCH (20:08)
[2020-04-14] MEDS: Famotidine 20 MG Tab PO SCH (20:08)
[2020-04-14] MEDS: ROPINIROLE 0.5 MG PO SCH (20:09)
[2020-04-14] MEDS: Gabapentin 300 MG Cap (OWN SUPPLY) PO SCH (20:09)
[2020-04-14] MEDS: WARFARIN 5 MG PO SCH (20:09)
[2020-04-15] MEDS: Omeprazole 20 MG Cap.CR PO SCH (07:01)
[2020-04-15] MEDS: Multivitamins with Iron/Calcium/Folic Acid/Minerals Tab PO SCH (07:37)
[2020-04-15] MEDS: Acetaminophen 325 MG Tab PO SCH ×3 (07:37→19:25)
[2020-04-15] MEDS: Gabapentin 100 MG Cap (OWN SUPPLY) PO SCH ×2 (07:37→12:18)
[2020-04-15] MEDS: ISOSORBIDE MONONITRATE 30 MG PO SCH (07:38)
[2020-04-15] MEDS: Metoprolol Succinate 25 MG Tab.ER (OWN SUPPLY) PO SCH (07:38)
[2020-04-15] MEDS: Vitamin B Complex Tab PO SCH (07:38)
[2020-04-15] MEDS: Sertraline 100 MG Tab (OWN SUPPLY) PO SCH (07:38)
[2020-04-15] MEDS: Furosemide 20 MG Tab (OWN SUPPLY) PO SCH ×2 (07:39→12:18)
[2020-04-15] MEDS ORDERED: [UNRECOGNIZED DRUG - REMARK] SCH (14:00)
[2020-04-15] MEDS: Gabapentin 300 MG Cap (OWN SUPPLY) PO SCH (19:24)
[2020-04-15] MEDS: WARFARIN 5 MG PO SCH (19:25)
[2020-04-15] MEDS: Melatonin 3 MG Tab PO SCH (19:25)
[2020-04-15] MEDS: Famotidine 20 MG Tab PO SCH (19:25)
[2020-04-15] MEDS: ROPINIROLE 0.5 MG PO SCH (19:26)
[2020-04-16] MEDS: Omeprazole 20 MG Cap.CR PO SCH (06:29)
[2020-04-16] MEDS: Vitamin B Complex Tab PO SCH (07:37)
[2020-04-16] MEDS: Multivitamins with Iron/Calcium/Folic Acid/Minerals Tab PO SCH (07:37)
[2020-04-16] MEDS: Ferrous Sulfate 325 MG Tab PO SCH (07:37)
[2020-04-16] MEDS: Furosemide 20 MG Tab (OWN SUPPLY) PO SCH ×2 (07:37→12:19)
[2020-04-16] MEDS: Acetaminophen 325 MG Tab PO SCH ×3 (07:37→20:43)
[2020-04-16] MEDS: Sertraline 100 MG Tab (OWN SUPPLY) PO SCH (07:38)
[2020-04-16] MEDS: ISOSORBIDE MONONITRATE 30 MG PO SCH (07:38)
[2020-04-16] MEDS: Metoprolol Succinate 25 MG Tab.ER (OWN SUPPLY) PO SCH (07:38)
[2020-04-16] MEDS: Gabapentin 100 MG Cap (OWN SUPPLY) PO SCH ×2 (07:39→12:19)
[2020-04-16] MEDS: Melatonin 3 MG Tab PO SCH (20:39)
[2020-04-16] MEDS: Gabapentin 300 MG Cap (OWN SUPPLY) PO SCH (20:41)
[2020-04-16] MEDS: WARFARIN 5 MG PO SCH (20:41)
[2020-04-16] MEDS: ROPINIROLE 0.5 MG PO SCH (20:42)
[2020-04-16] MEDS: Famotidine 20 MG Tab PO SCH (20:42)
[2020-04-17] MEDS: Acetaminophen 325 MG Tab PO SCH ×3 (08:00→20:28)
[2020-04-17] MEDS: Multivitamins with Iron/Calcium/Folic Acid/Minerals Tab PO SCH (08:00)
[2020-04-17] MEDS: Omeprazole 20 MG Cap.CR PO SCH (08:00)
[2020-04-17] MEDS: Vitamin B Complex Tab PO SCH (08:00)
[2020-04-17] MEDS: Sertraline 100 MG Tab (OWN SUPPLY) PO SCH (08:01)
[2020-04-17] MEDS: Furosemide 20 MG Tab (OWN SUPPLY) PO SCH ×2 (08:01→12:15)
[2020-04-17] MEDS: Gabapentin 100 MG Cap (OWN SUPPLY) PO SCH ×2 (08:01→12:15)
[2020-04-17] MEDS: ISOSORBIDE MONONITRATE 30 MG PO SCH (08:05)
[2020-04-17] MEDS: Metoprolol Succinate 25 MG Tab.ER (OWN SUPPLY) PO SCH (08:05)
[2020-04-17] MEDS: Melatonin 3 MG Tab PO SCH (20:27)
[2020-04-17] MEDS: Gabapentin 300 MG Cap (OWN SUPPLY) PO SCH (20:27)
[2020-04-17] MEDS: WARFARIN 5 MG PO SCH (20:27)
[2020-04-17] MEDS: ROPINIROLE 0.5 MG PO SCH (20:28)
[2020-04-17] MEDS: Famotidine 20 MG Tab PO SCH (20:28)
[2020-04-18] MEDS: Omeprazole 20 MG Cap.CR PO SCH (06:36)
[2020-04-18] MEDS: Sertraline 100 MG Tab (OWN SUPPLY) PO SCH (08:07)
[2020-04-18] MEDS: Ferrous Sulfate 325 MG Tab PO SCH (08:07)
[2020-04-18] MEDS: Vitamin B Complex Tab PO SCH (08:07)
[2020-04-18] MEDS: ISOSORBIDE MONONITRATE 30 MG PO SCH (08:07)
[2020-04-18] MEDS: Furosemide 20 MG Tab (OWN SUPPLY) PO SCH ×2 (08:07→12:16)
[2020-04-18] MEDS: Metoprolol Succinate 25 MG Tab.ER (OWN SUPPLY) PO SCH (08:07)
[2020-04-18] MEDS: Multivitamins with Iron/Calcium/Folic Acid/Minerals Tab PO SCH (08:07)
[2020-04-18] MEDS: Acetaminophen 325 MG Tab PO SCH ×3 (08:07→20:23)
[2020-04-18] MEDS: Gabapentin 100 MG Cap (OWN SUPPLY) PO SCH ×2 (08:07→12:16)
[2020-04-18] MEDS: Gabapentin 300 MG Cap (OWN SUPPLY) PO SCH (20:22)
[2020-04-18] MEDS: ROPINIROLE 0.5 MG PO SCH (20:22)
[2020-04-18] MEDS: Melatonin 3 MG Tab PO SCH (20:23)
[2020-04-18] MEDS: WARFARIN 5 MG PO SCH (20:23)
[2020-04-18] MEDS: Famotidine 20 MG Tab PO SCH (20:23)
[2020-04-19] MEDS: Omeprazole 20 MG Cap.CR PO SCH (06:25)
[2020-04-19] MEDS: Gabapentin 100 MG Cap (OWN SUPPLY) PO SCH ×2 (08:52→13:21)
[2020-04-19] MEDS: Furosemide 20 MG Tab (OWN SUPPLY) PO SCH (08:53)
[2020-04-19] MEDS: Multivitamins with Iron/Calcium/Folic Acid/Minerals Tab PO SCH (08:53)
[2020-04-19] MEDS: Sertraline 100 MG Tab (OWN SUPPLY) PO SCH (08:53)
[2020-04-19] MEDS: Vitamin B Complex Tab PO SCH (08:53)
[2020-04-19] MEDS: Acetaminophen 325 MG Tab PO SCH ×3 (08:53→20:32)
[2020-04-19] MEDS: Metoprolol Succinate 25 MG Tab.ER (OWN SUPPLY) PO SCH (08:53)
[2020-04-19] MEDS: ISOSORBIDE MONONITRATE 30 MG PO SCH (08:53)
--- NOTE | 2020-04-19 12:49 | PCM.PN ---
- General Info Date of Service: 04/19/20 Admission Dx/Problem (Free Text): Failure to Thrive, Bilateral LE weakness Subjective Update: Patient has been doing well. She has no complaints today. We did recheck her leg wound and swelling; this does seem to be improving. The pharmacist did do a review of her medication list; recommendation to trial off the PPI and see how this goes. Margot is not willing to give this a try as her heartburn is so troublesome on occasion and she doesn't want to make it any worse. She does bring up that her family has been causing her a lot of worry. She has a lot of concerns surrounding her daughter who has breast cancer and a granddaughter who is . She is hopeful as her son is hoping to move into her DIL's house and she may be able to return home with him. Isolation in the hospital with no visitors has been hard on her. - Review of Systems General: Reports: No Symptoms HEENT: Reports: No Symptoms Pulmonary: Reports: No Symptoms Cardiovascular: Reports: Edema Gastrointestinal: Reports: No Symptoms Genitourinary: Reports: No Symptoms Musculoskeletal: Reports: Leg Pain, Foot Pain Skin: Reports: Other (sore on right leg) Neurological: Reports: Weakness Psychiatric: Reports: Depression (very worried about many family members's well being), Anxiety - Patient Data Vitals - Most Recent: Last Vital Signs Temp 98 F 04/19/20 08:53 Pulse 95 04/19/20 08:53 Resp 20 04/19/20 06:40 BP 122/69 04/19/20 08:53 Pulse Ox 94 L 04/19/20 06:40 Weight - Most Recent: 187 lb 12.8 oz I&O - Last 24 Hours: Intake & Output 04/18/20 04/19/20 04/19/20 22:59 06:59 14:59 Intake Total 300 120 Balance 300 120 Lab Results Last 24 Hours: Laboratory Results - last 24 hr 04/19/20 Range/Units 06:53 Sodium 146 H (136-145) mmol/L Potassium 4.0 (3.5-5.1) mmol/L Chloride 108 H (98-107) mmol/L Carbon Dioxide 34 H (21-32) mmol/L Anion Gap 8.0 L (10-20) mmol/L BUN 19 H (7-18) mg/dL Creatinine 1.3 H (0.55-1.02) mg/dL Est Cr Clr Drug Dosing 26.82 mL/min Estimated GFR (MDRD) 39 Glucose 109 H (74-106) mg/dL Calcium 8.7 (8.5-10.1) mg/dL Med Orders - Current: Current Medications Acetaminophen (Tylenol) 650 mg PO TID@0800,1300,2000 [facility] Last Admin: 04/19/20 08:53 Dose: 650 mg Documented by: Buspirone HCl (Buspar) 5 mg PO BID [facility] Last Admin: 04/19/20 08:54 Dose: 5 mg Documented by: Calcium Carbonate/Glycine (Tums Extra Strength) 750 mg PO TID PRN PRN Reason: Dyspepsia Last Admin: 04/06/20 13:36 Dose: 750 mg Documented by: Docusate Sodium (Colace) 100 mg PO DAILY PRN PRN Reason: Constipation Famotidine (Pepcid) 20 mg PO BEDTIME [facility] Last Admin: 04/18/20 20:23 Dose: 20 mg Documented by: Ferrous Sulfate (Ferrous Sulfate) 325 mg PO Q48H [facility] Last Admin: 04/18/20 08:07 Dose: 325 mg Documented by: Furosemide (Lasix) 20 mg PO DAILY [facility] Last Admin: 04/19/20 08:53 Dose: 20 mg Documented by: Gabapentin (Neurontin) 100 mg PO BID@0800,1300 [facility] Last Admin: 04/19/20 08:52 Dose: 100 mg Documented by: Gabapentin (Neurontin) 300 mg PO BEDTIME [facility] Last Admin: 04/18/20 20:22 Dose: 300 mg Documented by: Isosorbide Mononitrate (Imdur) 30 mg PO DAILY [facility] Last Admin: 04/19/20 08:53 Dose: 30 mg Documented by: Loperamide HCl (Imodium) 2 mg PO Q12H PRN PRN Reason: Diarrhea Last Admin: 04/14/20 08:02 Dose: 2 mg Documented by: Melatonin (Melatonin) 6 mg PO BEDTIME [facility] Last Admin: 04/18/20 20:23 Dose: 6 mg Documented by: Metoprolol Succinate (Toprol Xl) 25 mg PO DAILY [facility] Last Admin: 04/19/20 08:53 Dose: 25 mg Documented by: Miconazole (Desenex 2%) 0 gm TOP BID PRN PRN Reason: RASH UNDER BILATERAL BREASTS Multivitamins/Minerals (Thera M Plus) 1 tab PO DAILY [facility] Last Admin: 04/19/20 08:53 Dose: 1 tab Documented by: Nitroglycerin (Nitrostat) 0.4 mg SL Q5M PRN PRN Reason: Chest Pain Omeprazole (Omeprazole) 20 mg PO DAILY@0700 [facility] Last Admin: 04/19/20 06:25 Dose: 20 mg Documented by: Pharmacy Consult (Consult To Pharmacy) 1 each .XX ASDIRECTED [facility] Polyethylene Glycol (Miralax) 17 gm PO DAILY PRN PRN Reason: Constipation Ropinirole HCl (Requip) 0.5 mg PO BEDTIME [facility] Last Admin: 04/18/20 20:22 Dose: 0.5 mg Documented by: Senna/Docusate Sodium (Senna Plus) 1 tab PO DAILY PRN PRN Reason: Constipation Sertraline HCl (Zoloft) 100 mg PO DAILY [facility] Last Admin: 04/19/20 08:53 Dose: 100 mg Documented by: Vitamin B Complex (Vitamin B Complex) 1 each PO DAILY [facility] Last Admin: 04/19/20 08:53 Dose: 1 each Documented by: Warfarin Sodium (Coumadin) 5 mg PO SuMoTuWeFrSa@1999 [facility] Last Admin: 04/18/20 20:23 Dose: 5 mg Documented by: Warfarin Sodium (Coumadin) 2.5 mg PO Th@1999 [facility] Last Admin: 04/15/20 19:25 Dose: 2.5 mg Documented by: Discontinued Medications Ciprofloxacin (Ciprofloxacin Hcl) 500 mg PO Q24H [facility] Stop: 03/04/20 20:01 Last Admin: 03/04/20 19:24 Dose: 500 mg Documented by: Famotidine (Pepcid) 20 mg PO DAILY [facility] Last Admin: 02/20/20 08:14 Dose: 20 mg Documented by: Furosemide (Lasix) 20 mg PO DAILY@1200 [facility] Stop: 04/18/20 12:01 Last Admin: 04/18/20 12:16 Dose: 20 mg Documented by: Nitrofurantoin Macrocrystals (Macrobid) 100 mg PO BID [facility] Stop: 03/07/20 08:31 Last Admin: 02/29/20 09:00 Dose: 100 mg Documented by: Omeprazole (Omeprazole) 20 mg PO DAILY [facility] Last Admin: 02/20/20 08:14 Dose: 20 mg Documented by: - Exam Quality Assessment: Supplemental Oxygen General: Alert, Oriented HEENT: EOMI Neck: Supple Lungs: Clear to Auscultation, Normal Respiratory Effort Cardiovascular: Regular Rate, Regular Rhythm GI/Abdominal Exam: Normal Bowel Sounds, Soft, Non-Tender Extremities: Pedal Edema Skin: Warm, Dry Wound/Incisions: Healing Well (quarter sized lesion to right distal joshi healing well, very superficial at this time. No surrounding erythema) Neurological: No New Focal Deficit Psy/Mental Status: Alert, Normal Affect, Normal Mood Sepsis Event Note - Evaluation Sepsis Screening Result: No Definite Risk - Focused Exam Vital Signs: Vital Signs Temp Temp Pulse Pulse Resp BP BP 04/19/20 08:53 98 F 95 122/69 04/19/20 06:40 97.5 F 86 20 135/67 04/19/20 05:49 98.2 F Pulse Ox 04/19/20 08:53 04/19/20 06:40 94 L 04/19/20 05:49 - Problem List Review Problem List Initiated/Reviewed/Updated: Yes - My Orders Last 24 Hours: My Active Orders 05/10/20 07:00 INR,PT,PROTHROMBIN TIME [COAG] Q28D 06/07/20 07:00 INR,PT,PROTHROMBIN TIME [[facility]] Q28D 07/05/20 07:00 INR,PT,PROTHROMBIN TIME [[facility]] Q28D 08/02/20 07:00 INR,PT,PROTHROMBIN TIME [[facility]] Q28D 08/30/20 07:00 INR,PT,PROTHROMBIN TIME [[facility]] Q28D 09/27/20 07:00 INR,PT,PROTHROMBIN TIME [[facility]] Q28D 10/25/20 07:00 INR,PT,PROTHROMBIN TIME [COAG] Q28D - Assessment Assessment:: Failure to Thrive Chronic Leg Weakness - Patient is long-term swing bed stay for assistance with ADLs due to the above - Patient notes son is moving into [facility]'s house and would like for her to return home Plan: - Continue regular daily care is as previously prescribed - Continue physical therapy as previously prescribed - Pending further discussion with son we may be able to look into as a safe option for return home; will need more information on safety of this going forward Breast Cancer, s/p lumpectomy - plan for follow-up with oncology as previously planned (repeat breast exam every 6 months, f/u visit with one in Dec 2020 with mammo) HTN - continue metoprolol 25mg daily GERD - continue omeprazole 20mg daily, prn Pepcid 20mg, prn Tums Anxiety/Depression - continue Zoloft 100mg daily, BuSpar 5mg BID Angina - continue Imdur 30mg daily, prn Nitro Restless legs - Requip 0.5mg at bedtime Chronic pain - Gabapentin 100mg am and noon, 300mg at supper Hx DVT - continue Warfarin, serial INR per pharmacy Peripheral edema - continue Lasix 20mg daily Constipation - continue Colace 100mg dialy, prn miralax Fe-def anemia - continue iron 325mg e/o day Insomnia - continue melatonin 3mg at bedtime Chronic respiratory failure - continue supplemental O2 Fungal rash - continue prn miconazole
[2020-04-19] MEDS: ROPINIROLE 0.5 MG PO SCH (20:33)
[2020-04-19] MEDS: WARFARIN 5 MG PO SCH (20:33)
[2020-04-19] MEDS: Gabapentin 300 MG Cap (OWN SUPPLY) PO SCH (20:33)
[2020-04-19] MEDS: Melatonin 3 MG Tab PO SCH (20:33)
[2020-04-19] MEDS: Famotidine 20 MG Tab PO SCH (20:33)
[2020-04-20] MEDS: Omeprazole 20 MG Cap.CR PO SCH (06:25)
[2020-04-20] MEDS: Vitamin B Complex Tab PO SCH (07:34)
[2020-04-20] MEDS: Multivitamins with Iron/Calcium/Folic Acid/Minerals Tab PO SCH (07:34)
[2020-04-20] MEDS: Acetaminophen 325 MG Tab PO SCH ×3 (07:34→20:07)
[2020-04-20] MEDS: Ferrous Sulfate 325 MG Tab PO SCH (07:34)
[2020-04-20] MEDS: Sertraline 100 MG Tab (OWN SUPPLY) PO SCH (07:35)
[2020-04-20] MEDS: ISOSORBIDE MONONITRATE 30 MG PO SCH (07:35)
[2020-04-20] MEDS: Metoprolol Succinate 25 MG Tab.ER (OWN SUPPLY) PO SCH (07:35)
[2020-04-20] MEDS: Furosemide 20 MG Tab (OWN SUPPLY) PO SCH (07:36)
[2020-04-20] MEDS: Gabapentin 100 MG Cap (OWN SUPPLY) PO SCH ×2 (07:36→12:51)
[2020-04-20] MEDS: Melatonin 3 MG Tab PO SCH (20:07)
[2020-04-20] MEDS: Famotidine 20 MG Tab PO SCH (20:07)
[2020-04-20] MEDS: ROPINIROLE 0.5 MG PO SCH (20:07)
[2020-04-20] MEDS: Gabapentin 300 MG Cap (OWN SUPPLY) PO SCH (20:08)
[2020-04-20] MEDS: WARFARIN 5 MG PO SCH (20:08)
[2020-04-21] MEDS: Gabapentin 100 MG Cap (OWN SUPPLY) PO SCH ×2 (07:31→12:41)
[2020-04-21] MEDS: ISOSORBIDE MONONITRATE 30 MG PO SCH (07:31)
[2020-04-21] MEDS: Vitamin B Complex Tab PO SCH (07:32)
[2020-04-21] MEDS: Acetaminophen 325 MG Tab PO SCH ×3 (07:32→20:47)
[2020-04-21] MEDS: Furosemide 20 MG Tab (OWN SUPPLY) PO SCH (07:32)
[2020-04-21] MEDS: Metoprolol Succinate 25 MG Tab.ER (OWN SUPPLY) PO SCH (07:32)
[2020-04-21] MEDS: Loperamide 2 MG Cap PO PRN (07:32)
[2020-04-21] MEDS: Sertraline 100 MG Tab (OWN SUPPLY) PO SCH (07:32)
[2020-04-21] MEDS: Multivitamins with Iron/Calcium/Folic Acid/Minerals Tab PO SCH (07:33)
[2020-04-21] MEDS: Omeprazole 20 MG Cap.CR PO SCH (07:35)
[2020-04-21] MEDS: Melatonin 3 MG Tab PO SCH (20:47)
[2020-04-21] MEDS: Famotidine 20 MG Tab PO SCH (20:47)
[2020-04-21] MEDS: ROPINIROLE 0.5 MG PO SCH (20:48)
[2020-04-21] MEDS: WARFARIN 5 MG PO SCH (20:49)
[2020-04-21] MEDS: Gabapentin 300 MG Cap (OWN SUPPLY) PO SCH (20:50)
[2020-04-22] MEDS: Omeprazole 20 MG Cap.CR PO SCH (06:00)
[2020-04-22] MEDS: Ferrous Sulfate 325 MG Tab PO SCH (07:43)
[2020-04-22] MEDS: Gabapentin 100 MG Cap (OWN SUPPLY) PO SCH ×2 (07:43→12:42)
[2020-04-22] MEDS: Vitamin B Complex Tab PO SCH (07:44)
[2020-04-22] MEDS: Multivitamins with Iron/Calcium/Folic Acid/Minerals Tab PO SCH (07:44)
[2020-04-22] MEDS: Acetaminophen 325 MG Tab PO SCH ×3 (07:44→19:29)
[2020-04-22] MEDS: Sertraline 100 MG Tab (OWN SUPPLY) PO SCH (07:44)
[2020-04-22] MEDS: ISOSORBIDE MONONITRATE 30 MG PO SCH (07:44)
[2020-04-22] MEDS: Furosemide 20 MG Tab (OWN SUPPLY) PO SCH (07:46)
[2020-04-22] MEDS: Metoprolol Succinate 25 MG Tab.ER (OWN SUPPLY) PO SCH (07:46)
[2020-04-22] MEDS: WARFARIN 5 MG PO SCH (19:25)
[2020-04-22] MEDS: Gabapentin 300 MG Cap (OWN SUPPLY) PO SCH (19:26)
[2020-04-22] MEDS: Melatonin 3 MG Tab PO SCH (19:26)
[2020-04-22] MEDS: Famotidine 20 MG Tab PO SCH (19:28)
[2020-04-22] MEDS: ROPINIROLE 0.5 MG PO SCH (19:29)
[2020-04-23] MEDS: Omeprazole 20 MG Cap.CR PO SCH (07:44)
[2020-04-23] MEDS: Vitamin B Complex Tab PO SCH (08:31)
[2020-04-23] MEDS: Sertraline 100 MG Tab (OWN SUPPLY) PO SCH (08:31)
[2020-04-23] MEDS: Acetaminophen 325 MG Tab PO SCH ×3 (08:31→19:48)
[2020-04-23] MEDS: Multivitamins with Iron/Calcium/Folic Acid/Minerals Tab PO SCH (08:31)
[2020-04-23] MEDS: Gabapentin 100 MG Cap (OWN SUPPLY) PO SCH ×2 (08:31→12:15)
[2020-04-23] MEDS: ISOSORBIDE MONONITRATE 30 MG PO SCH (08:32)
[2020-04-23] MEDS: Metoprolol Succinate 25 MG Tab.ER (OWN SUPPLY) PO SCH (08:32)
[2020-04-23] MEDS: Furosemide 20 MG Tab (OWN SUPPLY) PO SCH (08:32)
[2020-04-23] MEDS: Gabapentin 300 MG Cap (OWN SUPPLY) PO SCH (19:46)
[2020-04-23] MEDS: WARFARIN 5 MG PO SCH (19:47)
[2020-04-23] MEDS: Famotidine 20 MG Tab PO SCH (19:47)
[2020-04-23] MEDS: ROPINIROLE 0.5 MG PO SCH (19:48)
[2020-04-23] MEDS: Melatonin 3 MG Tab PO SCH (19:49)
[2020-04-24] MEDS: Omeprazole 20 MG Cap.CR PO SCH (06:29)
[2020-04-24] MEDS: Ferrous Sulfate 325 MG Tab PO SCH (07:43)
[2020-04-24] MEDS: Vitamin B Complex Tab PO SCH (07:43)
[2020-04-24] MEDS: Multivitamins with Iron/Calcium/Folic Acid/Minerals Tab PO SCH (07:43)
[2020-04-24] MEDS: Acetaminophen 325 MG Tab PO SCH ×3 (07:43→19:29)
[2020-04-24] MEDS: Furosemide 20 MG Tab (OWN SUPPLY) PO SCH (07:44)
[2020-04-24] MEDS: ISOSORBIDE MONONITRATE 30 MG PO SCH (07:44)
[2020-04-24] MEDS: Sertraline 100 MG Tab (OWN SUPPLY) PO SCH (07:45)
[2020-04-24] MEDS: Gabapentin 100 MG Cap (OWN SUPPLY) PO SCH ×2 (07:45→12:15)
[2020-04-24] MEDS: Metoprolol Succinate 25 MG Tab.ER (OWN SUPPLY) PO SCH (07:45)
[2020-04-24] MEDS: WARFARIN 5 MG PO SCH (19:29)
[2020-04-24] MEDS: Gabapentin 300 MG Cap (OWN SUPPLY) PO SCH (19:29)
[2020-04-24] MEDS: Famotidine 20 MG Tab PO SCH (19:29)
[2020-04-24] MEDS: ROPINIROLE 0.5 MG PO SCH (19:29)
[2020-04-24] MEDS: Melatonin 3 MG Tab PO SCH (19:29)
[2020-04-25] MEDS: Omeprazole 20 MG Cap.CR PO SCH (06:55)
[2020-04-25] MEDS: Gabapentin 100 MG Cap (OWN SUPPLY) PO SCH ×2 (08:56→12:30)
[2020-04-25] MEDS: Sertraline 100 MG Tab (OWN SUPPLY) PO SCH (08:57)
[2020-04-25] MEDS: Metoprolol Succinate 25 MG Tab.ER (OWN SUPPLY) PO SCH (08:57)
[2020-04-25] MEDS: Vitamin B Complex Tab PO SCH (08:58)
[2020-04-25] MEDS: Acetaminophen 325 MG Tab PO SCH ×3 (08:58→20:25)
[2020-04-25] MEDS: ISOSORBIDE MONONITRATE 30 MG PO SCH (08:58)
[2020-04-25] MEDS: Multivitamins with Iron/Calcium/Folic Acid/Minerals Tab PO SCH (08:58)
[2020-04-25] MEDS: Furosemide 20 MG Tab (OWN SUPPLY) PO SCH (08:58)
[2020-04-25] MEDS: Gabapentin 300 MG Cap (OWN SUPPLY) PO SCH (20:23)
[2020-04-25] MEDS: Famotidine 20 MG Tab PO SCH (20:25)
[2020-04-25] MEDS: Melatonin 3 MG Tab PO SCH (20:25)
[2020-04-25] MEDS: WARFARIN 5 MG PO SCH (20:26)
[2020-04-25] MEDS: ROPINIROLE 0.5 MG PO SCH (20:26)
[2020-04-26] MEDS: Omeprazole 20 MG Cap.CR PO SCH (06:05)
[2020-04-26] MEDS: Multivitamins with Iron/Calcium/Folic Acid/Minerals Tab PO SCH (07:20)
[2020-04-26] MEDS: Ferrous Sulfate 325 MG Tab PO SCH (07:20)
[2020-04-26] MEDS: Vitamin B Complex Tab PO SCH (07:20)
[2020-04-26] MEDS: Gabapentin 100 MG Cap (OWN SUPPLY) PO SCH ×2 (07:20→12:38)
[2020-04-26] MEDS: Acetaminophen 325 MG Tab PO SCH ×3 (07:20→19:44)
[2020-04-26] MEDS: ISOSORBIDE MONONITRATE 30 MG PO SCH (07:21)
[2020-04-26] MEDS: Metoprolol Succinate 25 MG Tab.ER (OWN SUPPLY) PO SCH (07:23)
[2020-04-26] MEDS: Furosemide 20 MG Tab (OWN SUPPLY) PO SCH (07:23)
[2020-04-26] MEDS: Sertraline 100 MG Tab (OWN SUPPLY) PO SCH (07:23)
[2020-04-26] MEDS: Melatonin 3 MG Tab PO SCH (19:45)
[2020-04-26] MEDS: Gabapentin 300 MG Cap (OWN SUPPLY) PO SCH (19:45)
[2020-04-26] MEDS: Famotidine 20 MG Tab PO SCH (19:45)
[2020-04-26] MEDS: ROPINIROLE 0.5 MG PO SCH (19:46)
[2020-04-26] MEDS: WARFARIN 5 MG PO SCH (19:46)
[2020-04-27] MEDS: Omeprazole 20 MG Cap.CR PO SCH (06:04)
[2020-04-27] MEDS: Gabapentin 100 MG Cap (OWN SUPPLY) PO SCH ×2 (07:25→12:41)
[2020-04-27] MEDS: Acetaminophen 325 MG Tab PO SCH ×3 (07:25→19:26)
[2020-04-27] MEDS: Multivitamins with Iron/Calcium/Folic Acid/Minerals Tab PO SCH (07:26)
[2020-04-27] MEDS: ISOSORBIDE MONONITRATE 30 MG PO SCH (07:26)
[2020-04-27] MEDS: Metoprolol Succinate 25 MG Tab.ER (OWN SUPPLY) PO SCH (07:26)
[2020-04-27] MEDS: Vitamin B Complex Tab PO SCH (07:26)
[2020-04-27] MEDS: Sertraline 100 MG Tab (OWN SUPPLY) PO SCH (07:26)
[2020-04-27] MEDS: Furosemide 20 MG Tab (OWN SUPPLY) PO SCH (07:26)
[2020-04-27] MEDS: ROPINIROLE 0.5 MG PO SCH (19:25)
[2020-04-27] MEDS: Gabapentin 300 MG Cap (OWN SUPPLY) PO SCH (19:25)
[2020-04-27] MEDS: WARFARIN 5 MG PO SCH (19:25)
[2020-04-27] MEDS: Melatonin 3 MG Tab PO SCH (19:26)
[2020-04-27] MEDS: Famotidine 20 MG Tab PO SCH (19:26)
[2020-04-28] MEDS: Omeprazole 20 MG Cap.CR PO SCH (06:25)
[2020-04-28] MEDS: Gabapentin 100 MG Cap (OWN SUPPLY) PO SCH ×2 (08:02→12:33)
[2020-04-28] MEDS: ISOSORBIDE MONONITRATE 30 MG PO SCH (08:03)
[2020-04-28] MEDS: Metoprolol Succinate 25 MG Tab.ER (OWN SUPPLY) PO SCH (08:03)
[2020-04-28] MEDS: Sertraline 100 MG Tab (OWN SUPPLY) PO SCH (08:03)
[2020-04-28] MEDS: Acetaminophen 325 MG Tab PO SCH ×3 (08:04→19:37)
[2020-04-28] MEDS: Vitamin B Complex Tab PO SCH (08:04)
[2020-04-28] MEDS: Multivitamins with Iron/Calcium/Folic Acid/Minerals Tab PO SCH (08:04)
[2020-04-28] MEDS: Furosemide 20 MG Tab (OWN SUPPLY) PO SCH (08:04)
[2020-04-28] MEDS: Ferrous Sulfate 325 MG Tab PO SCH (08:05)
[2020-04-28] MEDS: Loperamide 2 MG Cap PO PRN (08:38)
[2020-04-28] MEDS: Melatonin 3 MG Tab PO SCH (19:37)
[2020-04-28] MEDS: Gabapentin 300 MG Cap (OWN SUPPLY) PO SCH (19:37)
[2020-04-28] MEDS: Famotidine 20 MG Tab PO SCH (19:37)
[2020-04-28] MEDS: ROPINIROLE 0.5 MG PO SCH (19:38)
[2020-04-28] MEDS: WARFARIN 5 MG PO SCH (19:38)
[2020-04-29] MEDS: Omeprazole 20 MG Cap.CR PO SCH (06:03)
[2020-04-29] MEDS: Gabapentin 100 MG Cap (OWN SUPPLY) PO SCH ×2 (07:53→12:43)
[2020-04-29] MEDS: Furosemide 20 MG Tab (OWN SUPPLY) PO SCH (07:54)
[2020-04-29] MEDS: ISOSORBIDE MONONITRATE 30 MG PO SCH (07:54)
[2020-04-29] MEDS: Metoprolol Succinate 25 MG Tab.ER (OWN SUPPLY) PO SCH (07:54)
[2020-04-29] MEDS: Sertraline 100 MG Tab (OWN SUPPLY) PO SCH (07:55)
[2020-04-29] MEDS: Acetaminophen 325 MG Tab PO SCH ×3 (07:55→19:42)
[2020-04-29] MEDS: Multivitamins with Iron/Calcium/Folic Acid/Minerals Tab PO SCH (07:55)
[2020-04-29] MEDS: Vitamin B Complex Tab PO SCH (07:56)
[2020-04-29] MEDS: Famotidine 20 MG Tab PO SCH (19:41)
[2020-04-29] MEDS: Melatonin 3 MG Tab PO SCH (19:41)
[2020-04-29] MEDS: Gabapentin 300 MG Cap (OWN SUPPLY) PO SCH (19:42)
[2020-04-29] MEDS: WARFARIN 5 MG PO SCH (19:42)
[2020-04-29] MEDS: ROPINIROLE 0.5 MG PO SCH (19:42)
[2020-04-29] MEDS: Calcium Carbonate 750 MG Tab.Chew PO PRN (19:49)
[2020-04-30] MEDS: Omeprazole 20 MG Cap.CR PO SCH (06:16)
[2020-04-30] MEDS: Gabapentin 100 MG Cap (OWN SUPPLY) PO SCH ×2 (07:55→12:27)
[2020-04-30] MEDS: Sertraline 100 MG Tab (OWN SUPPLY) PO SCH (07:56)
[2020-04-30] MEDS: Furosemide 20 MG Tab (OWN SUPPLY) PO SCH (07:56)
[2020-04-30] MEDS: Metoprolol Succinate 25 MG Tab.ER (OWN SUPPLY) PO SCH (07:56)
[2020-04-30] MEDS: ISOSORBIDE MONONITRATE 30 MG PO SCH (07:56)
[2020-04-30] MEDS: Multivitamins with Iron/Calcium/Folic Acid/Minerals Tab PO SCH (07:57)
[2020-04-30] MEDS: Acetaminophen 325 MG Tab PO SCH ×3 (07:57→19:42)
[2020-04-30] MEDS: Vitamin B Complex Tab PO SCH (07:57)
[2020-04-30] MEDS: Ferrous Sulfate 325 MG Tab PO SCH (07:57)
[2020-04-30] MEDS: Famotidine 20 MG Tab PO SCH (19:41)
[2020-04-30] MEDS: ROPINIROLE 0.5 MG PO SCH (19:42)
[2020-04-30] MEDS: Melatonin 3 MG Tab PO SCH (19:42)
[2020-04-30] MEDS: WARFARIN 5 MG PO SCH (19:42)
[2020-04-30] MEDS: Gabapentin 300 MG Cap (OWN SUPPLY) PO SCH (19:43)
[2020-05-01] MEDS: Omeprazole 20 MG Cap.CR PO SCH (06:19)
[2020-05-01] MEDS: Metoprolol Succinate 25 MG Tab.ER (OWN SUPPLY) PO SCH (07:45)
[2020-05-01] MEDS: Gabapentin 100 MG Cap (OWN SUPPLY) PO SCH ×2 (07:45→12:13)
[2020-05-01] MEDS: Sertraline 100 MG Tab (OWN SUPPLY) PO SCH (07:46)
[2020-05-01] MEDS: Furosemide 20 MG Tab (OWN SUPPLY) PO SCH (07:46)
[2020-05-01] MEDS: ISOSORBIDE MONONITRATE 30 MG PO SCH (07:46)
[2020-05-01] MEDS: Multivitamins with Iron/Calcium/Folic Acid/Minerals Tab PO SCH (07:47)
[2020-05-01] MEDS: Vitamin B Complex Tab PO SCH (07:47)
[2020-05-01] MEDS: Acetaminophen 325 MG Tab PO SCH ×3 (07:47→19:42)
[2020-05-01] MEDS: WARFARIN 5 MG PO SCH (19:41)
[2020-05-01] MEDS: ROPINIROLE 0.5 MG PO SCH (19:41)
[2020-05-01] MEDS: Famotidine 20 MG Tab PO SCH (19:41)
[2020-05-01] MEDS: Melatonin 3 MG Tab PO SCH (19:42)
[2020-05-01] MEDS: Gabapentin 300 MG Cap (OWN SUPPLY) PO SCH (19:44)
[2020-05-02] MEDS: Omeprazole 20 MG Cap.CR PO SCH (06:03)
[2020-05-02] MEDS: Gabapentin 100 MG Cap (OWN SUPPLY) PO SCH ×2 (07:46→12:17)
[2020-05-02] MEDS: ISOSORBIDE MONONITRATE 30 MG PO SCH (07:47)
[2020-05-02] MEDS: Furosemide 20 MG Tab (OWN SUPPLY) PO SCH (07:47)
[2020-05-02] MEDS: Sertraline 100 MG Tab (OWN SUPPLY) PO SCH (07:47)
[2020-05-02] MEDS: Metoprolol Succinate 25 MG Tab.ER (OWN SUPPLY) PO SCH (07:47)
[2020-05-02] MEDS: Multivitamins with Iron/Calcium/Folic Acid/Minerals Tab PO SCH (07:48)
[2020-05-02] MEDS: Vitamin B Complex Tab PO SCH (07:49)
[2020-05-02] MEDS: Acetaminophen 325 MG Tab PO SCH ×3 (07:49→19:19)
[2020-05-02] MEDS: Ferrous Sulfate 325 MG Tab PO SCH (07:49)
[2020-05-02] MEDS: Gabapentin 300 MG Cap (OWN SUPPLY) PO SCH (19:19)
[2020-05-02] MEDS: Melatonin 3 MG Tab PO SCH (19:19)
[2020-05-02] MEDS: ROPINIROLE 0.5 MG PO SCH (19:19)
[2020-05-02] MEDS: WARFARIN 5 MG PO SCH (19:19)
[2020-05-02] MEDS: Famotidine 20 MG Tab PO SCH (19:59)
[2020-05-03] MEDS: Omeprazole 20 MG Cap.CR PO SCH (06:23)
[2020-05-03] MEDS: ISOSORBIDE MONONITRATE 30 MG PO SCH (08:37)
[2020-05-03] MEDS: Gabapentin 100 MG Cap (OWN SUPPLY) PO SCH ×2 (08:38→12:42)
[2020-05-03] MEDS: Vitamin B Complex Tab PO SCH (08:39)
[2020-05-03] MEDS: Multivitamins with Iron/Calcium/Folic Acid/Minerals Tab PO SCH (08:39)
[2020-05-03] MEDS: Sertraline 100 MG Tab (OWN SUPPLY) PO SCH (08:39)
[2020-05-03] MEDS: Metoprolol Succinate 25 MG Tab.ER (OWN SUPPLY) PO SCH (08:40)
[2020-05-03] MEDS: Acetaminophen 325 MG Tab PO SCH ×3 (08:51→19:32)
[2020-05-03] MEDS: Furosemide 20 MG Tab (OWN SUPPLY) PO SCH (08:52)
--- NOTE | 2020-05-03 17:47 | PCM.SN.2 ---
- Free Text/Narrative Note: Provider paged on 04/30/20 for concerns surrounding ulcer on patients anterior right joshi. Nurse concerned that this is looking worse. Patient did have a warm bath this morning and afterwards the nurse noted that the lesion was opened and leaking fluid. The nurse did put pressure on the patient's lower legs to help push more fluid out. On my review her chronic stasis ulcer continues to look like it is healing. The open areas only about the size of a dime with the surrounding healing area being about the size of a silver dollar. As always patient is very tender to palpation, but this is nothing new. We did try to do a trial of Lasix a few weeks back that did lend some aid to the amount of swelling. Patient refuses ASHKAN stockings. We will try to wrap the leg in Eladio bandages to help with offloading the fluid.
[2020-05-03] MEDS: ROPINIROLE 0.5 MG PO SCH (19:30)
[2020-05-03] MEDS: WARFARIN 5 MG PO SCH (19:30)
[2020-05-03] MEDS: Gabapentin 300 MG Cap (OWN SUPPLY) PO SCH (19:31)
[2020-05-03] MEDS: Famotidine 20 MG Tab PO SCH (19:31)
[2020-05-03] MEDS: Melatonin 3 MG Tab PO SCH (19:31)
[2020-05-04] MEDS: Omeprazole 20 MG Cap.CR PO SCH (06:08)
[2020-05-04] MEDS: Furosemide 20 MG Tab (OWN SUPPLY) PO SCH (08:59)
[2020-05-04] MEDS: Gabapentin 100 MG Cap (OWN SUPPLY) PO SCH ×2 (09:00→13:14)
[2020-05-04] MEDS: Metoprolol Succinate 25 MG Tab.ER (OWN SUPPLY) PO SCH (09:01)
[2020-05-04] MEDS: ISOSORBIDE MONONITRATE 30 MG PO SCH (09:01)
[2020-05-04] MEDS: Vitamin B Complex Tab PO SCH (09:02)
[2020-05-04] MEDS: Multivitamins with Iron/Calcium/Folic Acid/Minerals Tab PO SCH (09:02)
[2020-05-04] MEDS: Ferrous Sulfate 325 MG Tab PO SCH (09:02)
[2020-05-04] MEDS: Acetaminophen 325 MG Tab PO SCH ×3 (09:03→19:30)
[2020-05-04] MEDS: Sertraline 100 MG Tab (OWN SUPPLY) PO SCH (09:03)
[2020-05-04] MEDS: Famotidine 20 MG Tab PO SCH (19:30)
[2020-05-04] MEDS: Melatonin 3 MG Tab PO SCH (19:30)
[2020-05-04] MEDS: ROPINIROLE 0.5 MG PO SCH (19:31)
[2020-05-04] MEDS: Gabapentin 300 MG Cap (OWN SUPPLY) PO SCH (19:31)
[2020-05-04] MEDS: WARFARIN 5 MG PO SCH (19:31)
[2020-05-05] MEDS: Omeprazole 20 MG Cap.CR PO SCH (06:03)
[2020-05-05] MEDS: Gabapentin 100 MG Cap (OWN SUPPLY) PO SCH ×2 (08:06→13:25)
[2020-05-05] MEDS: Acetaminophen 325 MG Tab PO SCH ×3 (08:07→19:28)
[2020-05-05] MEDS: Metoprolol Succinate 25 MG Tab.ER (OWN SUPPLY) PO SCH (08:10)
[2020-05-05] MEDS: ISOSORBIDE MONONITRATE 30 MG PO SCH (08:10)
[2020-05-05] MEDS: Sertraline 100 MG Tab (OWN SUPPLY) PO SCH (08:11)
[2020-05-05] MEDS: Vitamin B Complex Tab PO SCH (08:11)
[2020-05-05] MEDS: Multivitamins with Iron/Calcium/Folic Acid/Minerals Tab PO SCH (08:11)
[2020-05-05] MEDS: Furosemide 20 MG Tab (OWN SUPPLY) PO SCH (08:11)
[2020-05-05] MEDS: Gabapentin 300 MG Cap (OWN SUPPLY) PO SCH (19:27)
[2020-05-05] MEDS: ROPINIROLE 0.5 MG PO SCH (19:28)
[2020-05-05] MEDS: Famotidine 20 MG Tab PO SCH (19:28)
[2020-05-05] MEDS: Melatonin 3 MG Tab PO SCH (19:28)
[2020-05-05] MEDS: WARFARIN 5 MG PO SCH (19:28)
[2020-05-06] MEDS: Omeprazole 20 MG Cap.CR PO SCH (06:03)
[2020-05-06] MEDS: Multivitamins with Iron/Calcium/Folic Acid/Minerals Tab PO SCH (08:35)
[2020-05-06] MEDS: Acetaminophen 325 MG Tab PO SCH ×3 (08:35→19:16)
[2020-05-06] MEDS: ISOSORBIDE MONONITRATE 30 MG PO SCH (08:35)
[2020-05-06] MEDS: Vitamin B Complex Tab PO SCH (08:35)
[2020-05-06] MEDS: Ferrous Sulfate 325 MG Tab PO SCH (08:35)
[2020-05-06] MEDS: Gabapentin 100 MG Cap (OWN SUPPLY) PO SCH ×2 (08:35→12:01)
[2020-05-06] MEDS: Sertraline 100 MG Tab (OWN SUPPLY) PO SCH (08:36)
[2020-05-06] MEDS: Furosemide 20 MG Tab (OWN SUPPLY) PO SCH (08:36)
[2020-05-06] MEDS: Metoprolol Succinate 25 MG Tab.ER (OWN SUPPLY) PO SCH (08:36)
[2020-05-06] MEDS: Famotidine 20 MG Tab PO SCH (19:16)
[2020-05-06] MEDS: Melatonin 3 MG Tab PO SCH (19:17)
[2020-05-06] MEDS: WARFARIN 5 MG PO SCH (19:17)
[2020-05-06] MEDS: ROPINIROLE 0.5 MG PO SCH (19:17)
[2020-05-06] MEDS: Gabapentin 300 MG Cap (OWN SUPPLY) PO SCH (19:18)
[2020-05-07] MEDS: Omeprazole 20 MG Cap.CR PO SCH (06:08)
[2020-05-07] MEDS: Gabapentin 100 MG Cap (OWN SUPPLY) PO SCH ×2 (08:56→14:06)
[2020-05-07] MEDS: Multivitamins with Iron/Calcium/Folic Acid/Minerals Tab PO SCH (08:57)
[2020-05-07] MEDS: Acetaminophen 325 MG Tab PO SCH ×3 (08:57→20:11)
[2020-05-07] MEDS: Vitamin B Complex Tab PO SCH (08:57)
[2020-05-07] MEDS: Metoprolol Succinate 25 MG Tab.ER (OWN SUPPLY) PO SCH (08:58)
[2020-05-07] MEDS: ISOSORBIDE MONONITRATE 30 MG PO SCH (08:58)
[2020-05-07] MEDS: Sertraline 100 MG Tab (OWN SUPPLY) PO SCH (08:58)
[2020-05-07] MEDS: Furosemide 20 MG Tab (OWN SUPPLY) PO SCH (08:58)
[2020-05-07] MEDS: WARFARIN 5 MG PO SCH (20:10)
[2020-05-07] MEDS: Gabapentin 300 MG Cap (OWN SUPPLY) PO SCH (20:10)
[2020-05-07] MEDS: ROPINIROLE 0.5 MG PO SCH (20:10)
[2020-05-07] MEDS: Melatonin 3 MG Tab PO SCH (20:11)
[2020-05-07] MEDS: Famotidine 20 MG Tab PO SCH (20:11)
[2020-05-08] MEDS: Omeprazole 20 MG Cap.CR PO SCH (06:17)
[2020-05-08] MEDS: Sertraline 100 MG Tab (OWN SUPPLY) PO SCH (08:26)
[2020-05-08] MEDS: ISOSORBIDE MONONITRATE 30 MG PO SCH (08:26)
[2020-05-08] MEDS: Furosemide 20 MG Tab (OWN SUPPLY) PO SCH (08:26)
[2020-05-08] MEDS: Metoprolol Succinate 25 MG Tab.ER (OWN SUPPLY) PO SCH (08:28)
[2020-05-08] MEDS: Gabapentin 100 MG Cap (OWN SUPPLY) PO SCH ×2 (08:29→13:51)
[2020-05-08] MEDS: Multivitamins with Iron/Calcium/Folic Acid/Minerals Tab PO SCH (08:30)
[2020-05-08] MEDS: Acetaminophen 325 MG Tab PO SCH ×3 (08:30→19:56)
[2020-05-08] MEDS: Vitamin B Complex Tab PO SCH (08:30)
[2020-05-08] MEDS: Ferrous Sulfate 325 MG Tab PO SCH (08:30)
[2020-05-08] MEDS: Gabapentin 300 MG Cap (OWN SUPPLY) PO SCH (19:52)
[2020-05-08] MEDS: ROPINIROLE 0.5 MG PO SCH (19:54)
[2020-05-08] MEDS: Famotidine 20 MG Tab PO SCH (19:55)
[2020-05-08] MEDS: WARFARIN 5 MG PO SCH (19:55)
[2020-05-08] MEDS: Melatonin 3 MG Tab PO SCH (19:56)
[2020-05-09] MEDS: Omeprazole 20 MG Cap.CR PO SCH (06:01)
[2020-05-09] MEDS: Multivitamins with Iron/Calcium/Folic Acid/Minerals Tab PO SCH (10:47)
[2020-05-09] MEDS: Vitamin B Complex Tab PO SCH (10:47)
[2020-05-09] MEDS: Metoprolol Succinate 25 MG Tab.ER (OWN SUPPLY) PO SCH (10:47)
[2020-05-09] MEDS: Acetaminophen 325 MG Tab PO SCH ×3 (10:47→20:10)
[2020-05-09] MEDS: Sertraline 100 MG Tab (OWN SUPPLY) PO SCH (10:48)
[2020-05-09] MEDS: ISOSORBIDE MONONITRATE 30 MG PO SCH (10:48)
[2020-05-09] MEDS: Furosemide 20 MG Tab (OWN SUPPLY) PO SCH (10:48)
[2020-05-09] MEDS: Gabapentin 100 MG Cap (OWN SUPPLY) PO SCH ×2 (10:49→13:26)
[2020-05-09] MEDS: Gabapentin 300 MG Cap (OWN SUPPLY) PO SCH (20:08)
[2020-05-09] MEDS: ROPINIROLE 0.5 MG PO SCH (20:08)
[2020-05-09] MEDS: Famotidine 20 MG Tab PO SCH (20:09)
[2020-05-09] MEDS: Melatonin 3 MG Tab PO SCH (20:09)
[2020-05-09] MEDS: WARFARIN 5 MG PO SCH (20:09)
[2020-05-10] MEDS: Omeprazole 20 MG Cap.CR PO SCH (06:03)
[2020-05-10] MEDS: Metoprolol Succinate 25 MG Tab.ER (OWN SUPPLY) PO SCH (09:09)
[2020-05-10] MEDS: Furosemide 20 MG Tab (OWN SUPPLY) PO SCH (09:09)
[2020-05-10] MEDS: ISOSORBIDE MONONITRATE 30 MG PO SCH (09:10)
[2020-05-10] MEDS: Sertraline 100 MG Tab (OWN SUPPLY) PO SCH (09:10)
[2020-05-10] MEDS: Ferrous Sulfate 325 MG Tab PO SCH (09:10)
[2020-05-10] MEDS: Multivitamins with Iron/Calcium/Folic Acid/Minerals Tab PO SCH (09:10)
[2020-05-10] MEDS: Vitamin B Complex Tab PO SCH (09:10)
[2020-05-10] MEDS: Acetaminophen 325 MG Tab PO SCH ×3 (09:10→19:52)
[2020-05-10] MEDS: Gabapentin 100 MG Cap (OWN SUPPLY) PO SCH ×2 (09:11→12:59)
[2020-05-10] MEDS: ROPINIROLE 0.5 MG PO SCH (19:51)
[2020-05-10] MEDS: Gabapentin 300 MG Cap (OWN SUPPLY) PO SCH (19:51)
[2020-05-10] MEDS: WARFARIN 5 MG PO SCH (19:51)
[2020-05-10] MEDS: Famotidine 20 MG Tab PO SCH (19:51)
[2020-05-10] MEDS: Melatonin 3 MG Tab PO SCH (19:51)
[2020-05-11] MEDS: Omeprazole 20 MG Cap.CR PO SCH (06:21)
[2020-05-11] MEDS: Gabapentin 100 MG Cap (OWN SUPPLY) PO SCH ×2 (08:17→12:18)
[2020-05-11] MEDS: ISOSORBIDE MONONITRATE 30 MG PO SCH (08:19)
[2020-05-11] MEDS: Metoprolol Succinate 25 MG Tab.ER (OWN SUPPLY) PO SCH (08:19)
[2020-05-11] MEDS: Sertraline 100 MG Tab (OWN SUPPLY) PO SCH (08:19)
[2020-05-11] MEDS: Furosemide 20 MG Tab (OWN SUPPLY) PO SCH (08:19)
[2020-05-11] MEDS: Multivitamins with Iron/Calcium/Folic Acid/Minerals Tab PO SCH (08:21)
[2020-05-11] MEDS: Acetaminophen 325 MG Tab PO SCH ×3 (08:21→20:25)
[2020-05-11] MEDS: Vitamin B Complex Tab PO SCH (08:21)
[2020-05-11] MEDS: Gabapentin 300 MG Cap (OWN SUPPLY) PO SCH (20:23)
[2020-05-11] MEDS: WARFARIN 5 MG PO SCH (20:24)
[2020-05-11] MEDS: ROPINIROLE 0.5 MG PO SCH (20:24)
[2020-05-11] MEDS: Famotidine 20 MG Tab PO SCH (20:25)
[2020-05-11] MEDS: Melatonin 3 MG Tab PO SCH (20:25)
[2020-05-12] MEDS: Omeprazole 20 MG Cap.CR PO SCH (06:04)
[2020-05-12] MEDS: Furosemide 20 MG Tab (OWN SUPPLY) PO SCH (09:46)
[2020-05-12] MEDS: ISOSORBIDE MONONITRATE 30 MG PO SCH (09:47)
[2020-05-12] MEDS: Sertraline 100 MG Tab (OWN SUPPLY) PO SCH (09:47)
[2020-05-12] MEDS: Metoprolol Succinate 25 MG Tab.ER (OWN SUPPLY) PO SCH (09:47)
[2020-05-12] MEDS: Vitamin B Complex Tab PO SCH (09:48)
[2020-05-12] MEDS: Ferrous Sulfate 325 MG Tab PO SCH (09:48)
[2020-05-12] MEDS: Acetaminophen 325 MG Tab PO SCH ×3 (09:48→20:30)
[2020-05-12] MEDS: Multivitamins with Iron/Calcium/Folic Acid/Minerals Tab PO SCH (09:48)
[2020-05-12] MEDS: Gabapentin 100 MG Cap (OWN SUPPLY) PO SCH ×2 (09:49→13:43)
[2020-05-12] MEDS: Famotidine 20 MG Tab PO SCH (20:31)
[2020-05-12] MEDS: Melatonin 3 MG Tab PO SCH (20:31)
[2020-05-12] MEDS: WARFARIN 5 MG PO SCH (20:32)
[2020-05-12] MEDS: Gabapentin 300 MG Cap (OWN SUPPLY) PO SCH (20:32)
[2020-05-12] MEDS: ROPINIROLE 0.5 MG PO SCH (20:32)
[2020-05-13] MEDS: Omeprazole 20 MG Cap.CR PO SCH (08:26)
[2020-05-13] MEDS: Furosemide 20 MG Tab (OWN SUPPLY) PO SCH (08:26)
[2020-05-13] MEDS: Acetaminophen 325 MG Tab PO SCH ×3 (08:26→20:45)
[2020-05-13] MEDS: Multivitamins with Iron/Calcium/Folic Acid/Minerals Tab PO SCH (08:26)
[2020-05-13] MEDS: Vitamin B Complex Tab PO SCH (08:26)
[2020-05-13] MEDS: Metoprolol Succinate 25 MG Tab.ER (OWN SUPPLY) PO SCH (08:27)
[2020-05-13] MEDS: ISOSORBIDE MONONITRATE 30 MG PO SCH (08:27)
[2020-05-13] MEDS: Sertraline 100 MG Tab (OWN SUPPLY) PO SCH (08:27)
[2020-05-13] MEDS: Gabapentin 100 MG Cap (OWN SUPPLY) PO SCH ×2 (08:28→12:44)
[2020-05-13] MEDS: Melatonin 3 MG Tab PO SCH (20:44)
[2020-05-13] MEDS: WARFARIN 5 MG PO SCH (20:44)
[2020-05-13] MEDS: Famotidine 20 MG Tab PO SCH (20:45)
[2020-05-13] MEDS: ROPINIROLE 0.5 MG PO SCH (20:45)
[2020-05-13] MEDS: Gabapentin 300 MG Cap (OWN SUPPLY) PO SCH (20:46)
[2020-05-14] MEDS: Omeprazole 20 MG Cap.CR PO SCH (06:20)
[2020-05-14] MEDS: Gabapentin 100 MG Cap (OWN SUPPLY) PO SCH ×2 (07:55→12:39)
[2020-05-14] MEDS: Furosemide 20 MG Tab (OWN SUPPLY) PO SCH (07:55)
[2020-05-14] MEDS: Sertraline 100 MG Tab (OWN SUPPLY) PO SCH (07:56)
[2020-05-14] MEDS: Metoprolol Succinate 25 MG Tab.ER (OWN SUPPLY) PO SCH (07:56)
[2020-05-14] MEDS: ISOSORBIDE MONONITRATE 30 MG PO SCH (07:56)
[2020-05-14] MEDS: Multivitamins with Iron/Calcium/Folic Acid/Minerals Tab PO SCH (07:57)
[2020-05-14] MEDS: Vitamin B Complex Tab PO SCH (07:57)
[2020-05-14] MEDS: Ferrous Sulfate 325 MG Tab PO SCH (07:57)
[2020-05-14] MEDS: Acetaminophen 325 MG Tab PO SCH ×3 (07:57→20:00)
[2020-05-14] MEDS: ROPINIROLE 0.5 MG PO SCH (19:59)
[2020-05-14] MEDS: Gabapentin 300 MG Cap (OWN SUPPLY) PO SCH (19:59)
[2020-05-14] MEDS: WARFARIN 5 MG PO SCH (20:00)
[2020-05-14] MEDS: Famotidine 20 MG Tab PO SCH (20:00)
[2020-05-14] MEDS: Melatonin 3 MG Tab PO SCH (20:00)
[2020-05-15] MEDS: Omeprazole 20 MG Cap.CR PO SCH (06:36)
[2020-05-15] MEDS: Acetaminophen 325 MG Tab PO SCH ×3 (07:29→19:39)
[2020-05-15] MEDS: Vitamin B Complex Tab PO SCH (07:29)
[2020-05-15] MEDS: Multivitamins with Iron/Calcium/Folic Acid/Minerals Tab PO SCH (07:29)
[2020-05-15] MEDS: Gabapentin 100 MG Cap (OWN SUPPLY) PO SCH ×2 (07:30→12:57)
[2020-05-15] MEDS: ISOSORBIDE MONONITRATE 30 MG PO SCH (07:30)
[2020-05-15] MEDS: Sertraline 100 MG Tab (OWN SUPPLY) PO SCH (07:30)
[2020-05-15] MEDS: Metoprolol Succinate 25 MG Tab.ER (OWN SUPPLY) PO SCH (07:31)
[2020-05-15] MEDS: Furosemide 20 MG Tab (OWN SUPPLY) PO SCH (07:31)
[2020-05-15] MEDS: Gabapentin 300 MG Cap (OWN SUPPLY) PO SCH (19:38)
[2020-05-15] MEDS: Famotidine 20 MG Tab PO SCH (19:39)
[2020-05-15] MEDS: ROPINIROLE 0.5 MG PO SCH (19:39)
[2020-05-15] MEDS: WARFARIN 5 MG PO SCH (19:39)
[2020-05-15] MEDS: Melatonin 3 MG Tab PO SCH (19:39)
[2020-05-16] MEDS: Omeprazole 20 MG Cap.CR PO SCH (06:50)
[2020-05-16] MEDS: Acetaminophen 325 MG Tab PO SCH ×3 (07:53→19:46)
[2020-05-16] MEDS: Vitamin B Complex Tab PO SCH (07:53)
[2020-05-16] MEDS: Gabapentin 100 MG Cap (OWN SUPPLY) PO SCH ×2 (07:53→12:51)
[2020-05-16] MEDS: Multivitamins with Iron/Calcium/Folic Acid/Minerals Tab PO SCH (07:53)
[2020-05-16] MEDS: Ferrous Sulfate 325 MG Tab PO SCH (07:53)
[2020-05-16] MEDS: Furosemide 20 MG Tab (OWN SUPPLY) PO SCH (07:53)
[2020-05-16] MEDS: ISOSORBIDE MONONITRATE 30 MG PO SCH (07:54)
[2020-05-16] MEDS: Sertraline 100 MG Tab (OWN SUPPLY) PO SCH (07:54)
[2020-05-16] MEDS: Metoprolol Succinate 25 MG Tab.ER (OWN SUPPLY) PO SCH (07:54)
[2020-05-16] MEDS: Famotidine 20 MG Tab PO SCH (19:45)
[2020-05-16] MEDS: WARFARIN 5 MG PO SCH (19:45)
[2020-05-16] MEDS: Gabapentin 300 MG Cap (OWN SUPPLY) PO SCH (19:45)
[2020-05-16] MEDS: ROPINIROLE 0.5 MG PO SCH (19:45)
[2020-05-16] MEDS: Melatonin 3 MG Tab PO SCH (19:46)
[2020-05-17] MEDS: Omeprazole 20 MG Cap.CR PO SCH (06:29)
[2020-05-17] MEDS: Gabapentin 100 MG Cap (OWN SUPPLY) PO SCH ×2 (08:29→12:17)
[2020-05-17] MEDS: Sertraline 100 MG Tab (OWN SUPPLY) PO SCH (08:30)
[2020-05-17] MEDS: Multivitamins with Iron/Calcium/Folic Acid/Minerals Tab PO SCH (08:30)
[2020-05-17] MEDS: Vitamin B Complex Tab PO SCH (08:30)
[2020-05-17] MEDS: Metoprolol Succinate 25 MG Tab.ER (OWN SUPPLY) PO SCH (08:30)
[2020-05-17] MEDS: Acetaminophen 325 MG Tab PO SCH ×3 (08:30→19:36)
[2020-05-17] MEDS: ISOSORBIDE MONONITRATE 30 MG PO SCH (08:30)
[2020-05-17] MEDS: Furosemide 20 MG Tab (OWN SUPPLY) PO SCH (08:31)
[2020-05-17] MEDS: WARFARIN 5 MG PO SCH (19:35)
[2020-05-17] MEDS: Gabapentin 300 MG Cap (OWN SUPPLY) PO SCH (19:36)
[2020-05-17] MEDS: Famotidine 20 MG Tab PO SCH (19:36)
[2020-05-17] MEDS: ROPINIROLE 0.5 MG PO SCH (19:36)
[2020-05-17] MEDS: Melatonin 3 MG Tab PO SCH (19:36)
[2020-05-18] MEDS: Omeprazole 20 MG Cap.CR PO SCH (06:35)
[2020-05-18] MEDS: Gabapentin 100 MG Cap (OWN SUPPLY) PO SCH ×2 (08:39→12:29)
[2020-05-18] MEDS: Acetaminophen 325 MG Tab PO SCH ×3 (08:40→19:56)
[2020-05-18] MEDS: ISOSORBIDE MONONITRATE 30 MG PO SCH (08:41)
[2020-05-18] MEDS: Ferrous Sulfate 325 MG Tab PO SCH (08:41)
[2020-05-18] MEDS: Vitamin B Complex Tab PO SCH (08:41)
[2020-05-18] MEDS: Multivitamins with Iron/Calcium/Folic Acid/Minerals Tab PO SCH (08:41)
[2020-05-18] MEDS: Metoprolol Succinate 25 MG Tab.ER (OWN SUPPLY) PO SCH (08:42)
[2020-05-18] MEDS: Sertraline 100 MG Tab (OWN SUPPLY) PO SCH (08:42)
[2020-05-18] MEDS: Furosemide 20 MG Tab (OWN SUPPLY) PO SCH (08:42)
[2020-05-18] MEDS: WARFARIN 5 MG PO SCH (19:54)
[2020-05-18] MEDS: Gabapentin 300 MG Cap (OWN SUPPLY) PO SCH (19:55)
[2020-05-18] MEDS: ROPINIROLE 0.5 MG PO SCH (19:55)
[2020-05-18] MEDS: Melatonin 3 MG Tab PO SCH (19:55)
[2020-05-18] MEDS: Famotidine 20 MG Tab PO SCH (19:56)
[2020-05-19] MEDS: Multivitamins with Iron/Calcium/Folic Acid/Minerals Tab PO SCH (09:55)
[2020-05-19] MEDS: Sertraline 100 MG Tab (OWN SUPPLY) PO SCH (09:55)
[2020-05-19] MEDS: Vitamin B Complex Tab PO SCH (09:55)
[2020-05-19] MEDS: ISOSORBIDE MONONITRATE 30 MG PO SCH (09:55)
[2020-05-19] MEDS: Furosemide 20 MG Tab (OWN SUPPLY) PO SCH (09:56)
[2020-05-19] MEDS: Metoprolol Succinate 25 MG Tab.ER (OWN SUPPLY) PO SCH (09:56)
[2020-05-19] MEDS: Acetaminophen 325 MG Tab PO SCH ×3 (09:57→20:53)
[2020-05-19] MEDS: Gabapentin 100 MG Cap (OWN SUPPLY) PO SCH ×2 (09:57→17:03)
[2020-05-19] MEDS: Omeprazole 20 MG Cap.CR PO SCH (10:09)
[2020-05-19] MEDS: Gabapentin 300 MG Cap (OWN SUPPLY) PO SCH (20:48)
[2020-05-19] MEDS: ROPINIROLE 0.5 MG PO SCH (20:49)
[2020-05-19] MEDS: WARFARIN 5 MG PO SCH (20:49)
[2020-05-19] MEDS: Famotidine 20 MG Tab PO SCH (20:53)
[2020-05-19] MEDS: Melatonin 3 MG Tab PO SCH (20:53)
[2020-05-20] MEDS: Omeprazole 20 MG Cap.CR PO SCH (06:05)
[2020-05-20] MEDS: Furosemide 20 MG Tab (OWN SUPPLY) PO SCH (08:03)
[2020-05-20] MEDS: Sertraline 100 MG Tab (OWN SUPPLY) PO SCH (08:03)
[2020-05-20] MEDS: ISOSORBIDE MONONITRATE 30 MG PO SCH (08:03)
[2020-05-20] MEDS: Multivitamins with Iron/Calcium/Folic Acid/Minerals Tab PO SCH (08:03)
[2020-05-20] MEDS: Vitamin B Complex Tab PO SCH (08:03)
[2020-05-20] MEDS: Metoprolol Succinate 25 MG Tab.ER (OWN SUPPLY) PO SCH (08:03)
[2020-05-20] MEDS: Acetaminophen 325 MG Tab PO SCH ×3 (08:03→20:06)
[2020-05-20] MEDS: Gabapentin 100 MG Cap (OWN SUPPLY) PO SCH ×2 (08:03→13:37)
[2020-05-20] MEDS: Ferrous Sulfate 325 MG Tab PO SCH (08:03)
--- NOTE | 2020-05-20 12:30 | PCM.PN ---
- General Info Date of Service: 05/19/20 Admission Dx/Problem (Free Text): Failure to Thrive, Bilateral LE weakness Subjective Update: Patient has been doing well. She has been having some right-sided arm pain; this has come and gone since her previous breast procedure. Has been doing some pain control and heating pad per nursing and OT. We did recheck her leg wound and swelling; this has improved greatly since we last saw it; wound is about 6mm wide and very superficial at this time. Patient continues to be tender to touch almost everywhere. She does bring up that she was unable to make her follow-up appointment due to bad weather the other week; nursing is working to get this set up (dental appt). - Review of Systems General: Reports: Weakness HEENT: Reports: No Symptoms Pulmonary: Reports: No Symptoms Cardiovascular: Reports: No Symptoms Gastrointestinal: Reports: No Symptoms Genitourinary: Reports: No Symptoms Musculoskeletal: Reports: Arm Pain, Back Pain, Leg Pain Skin: Reports: Other (lesion is healing) Neurological: Reports: Difficulty Walking, Weakness Psychiatric: Reports: No Symptoms - Patient Data Vitals - Most Recent: Last Vital Signs Temp 97.7 F 05/20/20 05:58 Pulse 74 05/20/20 08:03 Resp 17 04/30/20 08:42 BP 130/68 05/20/20 08:03 Pulse Ox 95 05/18/20 21:45 Weight - Most Recent: 187 lb I&O - Last 24 Hours: Intake & Output 05/19/20 05/20/20 05/20/20 22:59 06:59 14:59 Intake Total 180 60 Balance 180 60 Med Orders - Current: Current Medications Acetaminophen (Tylenol Extra Strength) 1,000 mg PO BID PRN PRN Reason: Pain/Fever Acetaminophen (Tylenol) 650 mg PO TID@0800,1300,2000 [facility] Last Admin: 05/20/20 08:03 Dose: 650 mg Documented by: Buspirone HCl (Buspar) 5 mg PO BID [facility] Last Admin: 05/20/20 08:02 Dose: 5 mg Documented by: Calcium Carbonate/Glycine (Tums Extra Strength) 750 mg PO TID PRN PRN Reason: Dyspepsia Last Admin: 04/29/20 19:49 Dose: 750 mg Documented by: Docusate Sodium (Colace) 100 mg PO DAILY PRN PRN Reason: Constipation Famotidine (Pepcid) 20 mg PO BEDTIME [facility] Last Admin: 05/19/20 20:53 Dose: 20 mg Documented by: Ferrous Sulfate (Ferrous Sulfate) 325 mg PO Q48H [facility] Last Admin: 05/20/20 08:03 Dose: 325 mg Documented by: Furosemide (Lasix) 20 mg PO DAILY [facility] Last Admin: 05/20/20 08:03 Dose: 20 mg Documented by: Gabapentin (Neurontin) 100 mg PO BID@0800,1300 [facility] Last Admin: 05/20/20 08:03 Dose: 100 mg Documented by: Gabapentin (Neurontin) 300 mg PO BEDTIME [facility] Last Admin: 05/19/20 20:48 Dose: 300 mg Documented by: Isosorbide Mononitrate (Imdur) 30 mg PO DAILY [facility] Last Admin: 05/20/20 08:03 Dose: 30 mg Documented by: Loperamide HCl (Imodium) 2 mg PO Q12H PRN PRN Reason: Diarrhea Last Admin: 04/28/20 08:38 Dose: 2 mg Documented by: Melatonin (Melatonin) 6 mg PO BEDTIME [facility] Last Admin: 05/19/20 20:53 Dose: 6 mg Documented by: Metoprolol Succinate (Toprol Xl) 25 mg PO DAILY [facility] Last Admin: 05/20/20 08:03 Dose: 25 mg Documented by: Miconazole (Desenex 2%) 0 gm TOP BID PRN PRN Reason: RASH UNDER BILATERAL BREASTS Multivitamins/Minerals (Thera M Plus) 1 tab PO DAILY [facility] Last Admin: 05/20/20 08:03 Dose: 1 tab Documented by: Nitroglycerin (Nitrostat) 0.4 mg SL Q5M PRN PRN Reason: Chest Pain Omeprazole (Omeprazole) 20 mg PO DAILY@0700 [facility] Last Admin: 05/20/20 06:05 Dose: 20 mg Documented by: Pharmacy Consult (Consult To Pharmacy) 1 each .XX ASDIRECTED [facility] Polyethylene Glycol (Miralax) 17 gm PO DAILY PRN PRN Reason: Constipation Ropinirole HCl (Requip) 0.5 mg PO BEDTIME [facility] Last Admin: 05/19/20 20:49 Dose: 0.5 mg Documented by: Senna/Docusate Sodium (Senna Plus) 1 tab PO DAILY PRN PRN Reason: Constipation Sertraline HCl (Zoloft) 100 mg PO DAILY [facility] Last Admin: 05/20/20 08:03 Dose: 100 mg Documented by: Vitamin B Complex (Vitamin B Complex) 1 each PO DAILY [facility] Last Admin: 05/20/20 08:03 Dose: 1 each Documented by: Warfarin Sodium (Coumadin) 5 mg PO SuMoTuWeFrSa@1999 [facility] Last Admin: 05/19/20 20:49 Dose: 5 mg Documented by: Warfarin Sodium (Coumadin) 2.5 mg PO Th@1999 [facility] Last Admin: 05/13/20 20:44 Dose: 2.5 mg Documented by: Discontinued Medications Ciprofloxacin (Ciprofloxacin Hcl) 500 mg PO Q24H [facility] Stop: 03/04/20 20:01 Last Admin: 03/04/20 19:24 Dose: 500 mg Documented by: Famotidine (Pepcid) 20 mg PO DAILY [facility] Last Admin: 02/20/20 08:14 Dose: 20 mg Documented by: Furosemide (Lasix) 20 mg PO DAILY@1200 [facility] Stop: 04/18/20 12:01 Last Admin: 04/18/20 12:16 Dose: 20 mg Documented by: Nitrofurantoin Macrocrystals (Macrobid) 100 mg PO BID [facility] Stop: 03/07/20 08:31 Last Admin: 02/29/20 09:00 Dose: 100 mg Documented by: Omeprazole (Omeprazole) 20 mg PO DAILY [facility] Last Admin: 02/20/20 08:14 Dose: 20 mg Documented by: - Exam General: Alert, Oriented HEENT: Pupils Equal, Mucous Membr. Moist/[place] Neck: Supple Lungs: Clear to Auscultation, Normal Respiratory Effort Cardiovascular: Regular Rate, Regular Rhythm GI/Abdominal Exam: Normal Bowel Sounds, Soft, Non-Tender Extremities: Pedal Edema (1+ to the bilateral ankles, tender to palpation), Slow Capillary Refill Skin: Warm, Dry Wound/Incisions: Healing Well (lesion on right distal joshi, about 6mm in diameter, very superficial) Neurological: No New Focal Deficit Psy/Mental Status: Alert, Normal Affect, Normal Mood Sepsis Event Note - Evaluation Sepsis Screening Result: No Definite Risk - Focused Exam Vital Signs: Vital Signs Temp Pulse BP 05/20/20 08:03 74 130/68 05/20/20 05:58 97.7 F - Problem List & Annotations (1) Need for assistance with personal care SNOMED Code(s): 40589854280011077 Code(s): Z74.1 - NEED FOR ASSISTANCE WITH PERSONAL CARE Status: Acute Current Visit: No (2) Anxiety SNOMED Code(s): 38601821 Code(s): F41.9 - ANXIETY DISORDER, UNSPECIFIED Status: Chronic Current Visit: No (3) CKD (chronic kidney disease) SNOMED Code(s): 457382452 Code(s): N18.9 - CHRONIC KIDNEY DISEASE, UNSPECIFIED Status: Chronic Current Visit: No (4) COPD (chronic obstructive pulmonary disease) SNOMED Code(s): 73194962 Code(s): J44.9 - CHRONIC OBSTRUCTIVE PULMONARY DISEASE, UNSPECIFIED Status: Chronic Current Visit: No (5) Depression SNOMED Code(s): 35317185 Code(s): F32.9 - MAJOR DEPRESSIVE DISORDER, SINGLE EPISODE, UNSPECIFIED Status: Chronic Current Visit: No (6) Diastolic HF (heart failure) SNOMED Code(s): 776872348 Code(s): I50.30 - UNSPECIFIED DIASTOLIC (CONGESTIVE) HEART FAILURE Status: Chronic Current Visit: No (7) GERD (gastroesophageal reflux disease) SNOMED Code(s): 173262559 Code(s): K21.9 - GASTRO-ESOPHAGEAL REFLUX DISEASE WITHOUT ESOPHAGITIS Status: Chronic Current Visit: No (8) Hypertension SNOMED Code(s): 30293604 Code(s): I10 - ESSENTIAL (PRIMARY) HYPERTENSION Status: Chronic Current Visit: No - Problem List Review Problem List Initiated/Reviewed/Updated: Yes - My Orders Last 24 Hours: My Active Orders 06/07/20 07:00 INR,PT,PROTHROMBIN TIME [COAG] Q28D 07/05/20 07:00 INR,PT,PROTHROMBIN TIME [COAG] Q28D 08/02/20 07:00 INR,PT,PROTHROMBIN TIME [COAG] Q28D 08/30/20 07:00 INR,PT,PROTHROMBIN TIME [COAG] Q28D 09/27/20 07:00 INR,PT,PROTHROMBIN TIME [COAG] Q28D 10/25/20 07:00 INR,PT,PROTHROMBIN TIME [COAG] Q28D - Assessment Assessment:: Failure to Thrive Chronic Leg Weakness - Patient is long-term swing bed stay for assistance with ADLs due to the above Plan: - Continue regular daily care is as previously prescribed - Continue physical therapy as previously prescribed - Pending further discussion with son we may be able to look into HH as a safe option for return home; will need more information on safety of this going forward Leg wound Diastolic CHF - Healing very well, anticipate this will be healed over completely by next rounds Plan: - Continue current wound cares Breast Cancer, s/p lumpectomy - plan for follow-up with oncology as previously planned (repeat breast exam every 6 months, f/u visit with one in Dec 2020 with mammo) HTN - continue metoprolol 25mg daily GERD - continue omeprazole 20mg daily, prn Pepcid 20mg, prn Tums Anxiety/Depression - continue Zoloft 100mg daily, BuSpar 5mg BID Angina - continue Imdur 30mg daily, prn Nitro Restless legs - Requip 0.5mg at bedtime Chronic pain - Gabapentin 100mg am and noon, 300mg at supper Hx DVT - continue Warfarin, serial INR per pharmacy Peripheral edema - continue Lasix 20mg daily Constipation - continue Colace 100mg dialy, prn miralax Fe-def anemia - continue iron 325mg e/o day Insomnia - continue melatonin 3mg at bedtime Chronic respiratory failure - continue supplemental O2 Fungal rash - continue prn miconazole
[2020-05-20] MEDS: Melatonin 3 MG Tab PO SCH (20:05)
[2020-05-20] MEDS: Gabapentin 300 MG Cap (OWN SUPPLY) PO SCH (20:05)
[2020-05-20] MEDS: ROPINIROLE 0.5 MG PO SCH (20:07)
[2020-05-20] MEDS: WARFARIN 5 MG PO SCH (20:07)
[2020-05-20] MEDS: Famotidine 20 MG Tab PO SCH (20:08)
[2020-05-21] MEDS: Omeprazole 20 MG Cap.CR PO SCH (06:33)
[2020-05-21] MEDS: Gabapentin 100 MG Cap (OWN SUPPLY) PO SCH ×2 (07:38→12:20)
[2020-05-21] MEDS: Furosemide 20 MG Tab (OWN SUPPLY) PO SCH (07:39)
[2020-05-21] MEDS: ISOSORBIDE MONONITRATE 30 MG PO SCH (07:39)
[2020-05-21] MEDS: Acetaminophen 325 MG Tab PO SCH ×3 (07:40→19:13)
[2020-05-21] MEDS: Metoprolol Succinate 25 MG Tab.ER (OWN SUPPLY) PO SCH (07:40)
[2020-05-21] MEDS: Sertraline 100 MG Tab (OWN SUPPLY) PO SCH (07:40)
[2020-05-21] MEDS: Multivitamins with Iron/Calcium/Folic Acid/Minerals Tab PO SCH (07:40)
[2020-05-21] MEDS: Vitamin B Complex Tab PO SCH (07:41)
[2020-05-21] MEDS: Mineral Oil/Petrolatum,White Crm 454 GM Jar TOP SCH ×2 (08:53→19:19)
[2020-05-21] MEDS: Gabapentin 300 MG Cap (OWN SUPPLY) PO SCH (19:12)
[2020-05-21] MEDS: ROPINIROLE 0.5 MG PO SCH (19:12)
[2020-05-21] MEDS: WARFARIN 5 MG PO SCH (19:12)
[2020-05-21] MEDS: Melatonin 3 MG Tab PO SCH (19:13)
[2020-05-21] MEDS: Famotidine 20 MG Tab PO SCH (19:13)
[2020-05-22] MEDS: Omeprazole 20 MG Cap.CR PO SCH (06:31)
[2020-05-22] MEDS: Gabapentin 100 MG Cap (OWN SUPPLY) PO SCH ×2 (07:59→12:29)
[2020-05-22] MEDS: Sertraline 100 MG Tab (OWN SUPPLY) PO SCH (08:00)
[2020-05-22] MEDS: Metoprolol Succinate 25 MG Tab.ER (OWN SUPPLY) PO SCH (08:01)
[2020-05-22] MEDS: Furosemide 20 MG Tab (OWN SUPPLY) PO SCH (08:01)
[2020-05-22] MEDS: ISOSORBIDE MONONITRATE 30 MG PO SCH (08:01)
[2020-05-22] MEDS: Mineral Oil/Petrolatum,White Crm 454 GM Jar TOP SCH ×2 (08:02→19:44)
[2020-05-22] MEDS: Acetaminophen 325 MG Tab PO SCH ×3 (08:02→19:41)
[2020-05-22] MEDS: Multivitamins with Iron/Calcium/Folic Acid/Minerals Tab PO SCH (08:03)
[2020-05-22] MEDS: Vitamin B Complex Tab PO SCH (08:03)
[2020-05-22] MEDS: Ferrous Sulfate 325 MG Tab PO SCH (08:03)
[2020-05-22] MEDS: Gabapentin 300 MG Cap (OWN SUPPLY) PO SCH (19:38)
[2020-05-22] MEDS: WARFARIN 5 MG PO SCH (19:40)
[2020-05-22] MEDS: ROPINIROLE 0.5 MG PO SCH (19:40)
[2020-05-22] MEDS: Famotidine 20 MG Tab PO SCH (19:43)
[2020-05-22] MEDS: Melatonin 3 MG Tab PO SCH (19:43)
[2020-05-23] MEDS: Omeprazole 20 MG Cap.CR PO SCH (06:23)
[2020-05-23] MEDS: Gabapentin 100 MG Cap (OWN SUPPLY) PO SCH ×2 (08:43→12:55)
[2020-05-23] MEDS: ISOSORBIDE MONONITRATE 30 MG PO SCH (08:43)
[2020-05-23] MEDS: Metoprolol Succinate 25 MG Tab.ER (OWN SUPPLY) PO SCH (08:44)
[2020-05-23] MEDS: Sertraline 100 MG Tab (OWN SUPPLY) PO SCH (08:44)
[2020-05-23] MEDS: Furosemide 20 MG Tab (OWN SUPPLY) PO SCH (08:44)
[2020-05-23] MEDS: Acetaminophen 325 MG Tab PO SCH ×3 (08:45→19:33)
[2020-05-23] MEDS: Multivitamins with Iron/Calcium/Folic Acid/Minerals Tab PO SCH (08:45)
[2020-05-23] MEDS: Vitamin B Complex Tab PO SCH (08:45)
[2020-05-23] MEDS: Mineral Oil/Petrolatum,White Crm 454 GM Jar TOP SCH ×2 (09:02→19:40)
[2020-05-23] MEDS: Melatonin 3 MG Tab PO SCH (19:33)
[2020-05-23] MEDS: Famotidine 20 MG Tab PO SCH (19:36)
[2020-05-23] MEDS: Gabapentin 300 MG Cap (OWN SUPPLY) PO SCH (19:38)
[2020-05-23] MEDS: ROPINIROLE 0.5 MG PO SCH (19:39)
[2020-05-23] MEDS: WARFARIN 5 MG PO SCH (19:40)
[2020-05-24] MEDS: Omeprazole 20 MG Cap.CR PO SCH (06:10)
[2020-05-24] MEDS: Gabapentin 100 MG Cap (OWN SUPPLY) PO SCH ×2 (08:28→12:20)
[2020-05-24] MEDS: Vitamin B Complex Tab PO SCH (08:29)
[2020-05-24] MEDS: Ferrous Sulfate 325 MG Tab PO SCH (08:29)
[2020-05-24] MEDS: Acetaminophen 325 MG Tab PO SCH ×3 (08:29→19:38)
[2020-05-24] MEDS: Multivitamins with Iron/Calcium/Folic Acid/Minerals Tab PO SCH (08:29)
[2020-05-24] MEDS: Sertraline 100 MG Tab (OWN SUPPLY) PO SCH (08:30)
[2020-05-24] MEDS: Metoprolol Succinate 25 MG Tab.ER (OWN SUPPLY) PO SCH (08:30)
[2020-05-24] MEDS: ISOSORBIDE MONONITRATE 30 MG PO SCH (08:30)
[2020-05-24] MEDS: Furosemide 20 MG Tab (OWN SUPPLY) PO SCH (08:30)
[2020-05-24] MEDS: Mineral Oil/Petrolatum,White Crm 454 GM Jar TOP SCH ×2 (08:31→19:39)
[2020-05-24] MEDS: ROPINIROLE 0.5 MG PO SCH (19:38)
[2020-05-24] MEDS: Melatonin 3 MG Tab PO SCH (19:38)
[2020-05-24] MEDS: WARFARIN 5 MG PO SCH (19:38)
[2020-05-24] MEDS: Famotidine 20 MG Tab PO SCH (19:38)
[2020-05-24] MEDS: Gabapentin 300 MG Cap (OWN SUPPLY) PO SCH (19:39)
[2020-05-25] MEDS: Omeprazole 20 MG Cap.CR PO SCH (06:47)
[2020-05-25] MEDS: Mineral Oil/Petrolatum,White Crm 454 GM Jar TOP SCH ×2 (07:41→19:43)
[2020-05-25] MEDS: Gabapentin 100 MG Cap (OWN SUPPLY) PO SCH ×2 (07:41→12:50)
[2020-05-25] MEDS: Furosemide 20 MG Tab (OWN SUPPLY) PO SCH (07:41)
[2020-05-25] MEDS: ISOSORBIDE MONONITRATE 30 MG PO SCH (07:42)
[2020-05-25] MEDS: Sertraline 100 MG Tab (OWN SUPPLY) PO SCH (07:42)
[2020-05-25] MEDS: Metoprolol Succinate 25 MG Tab.ER (OWN SUPPLY) PO SCH (07:42)
[2020-05-25] MEDS: Vitamin B Complex Tab PO SCH (07:43)
[2020-05-25] MEDS: Multivitamins with Iron/Calcium/Folic Acid/Minerals Tab PO SCH (07:43)
[2020-05-25] MEDS: Acetaminophen 325 MG Tab PO SCH ×3 (07:43→19:43)
[2020-05-25] MEDS: WARFARIN 5 MG PO SCH (19:42)
[2020-05-25] MEDS: ROPINIROLE 0.5 MG PO SCH (19:42)
[2020-05-25] MEDS: Gabapentin 300 MG Cap (OWN SUPPLY) PO SCH (19:42)
[2020-05-25] MEDS: Melatonin 3 MG Tab PO SCH (19:43)
[2020-05-25] MEDS: Famotidine 20 MG Tab PO SCH (19:43)
[2020-05-26] MEDS: Omeprazole 20 MG Cap.CR PO SCH (06:39)
[2020-05-26] MEDS: Gabapentin 100 MG Cap (OWN SUPPLY) PO SCH ×2 (07:31→13:03)
[2020-05-26] MEDS: Sertraline 100 MG Tab (OWN SUPPLY) PO SCH (07:32)
[2020-05-26] MEDS: ISOSORBIDE MONONITRATE 30 MG PO SCH (07:32)
[2020-05-26] MEDS: Furosemide 20 MG Tab (OWN SUPPLY) PO SCH (07:33)
[2020-05-26] MEDS: Metoprolol Succinate 25 MG Tab.ER (OWN SUPPLY) PO SCH (07:33)
[2020-05-26] MEDS: Acetaminophen 325 MG Tab PO SCH ×3 (07:33→19:44)
[2020-05-26] MEDS: Multivitamins with Iron/Calcium/Folic Acid/Minerals Tab PO SCH (07:34)
[2020-05-26] MEDS: Ferrous Sulfate 325 MG Tab PO SCH (07:34)
[2020-05-26] MEDS: Vitamin B Complex Tab PO SCH (07:34)
[2020-05-26] MEDS: Mineral Oil/Petrolatum,White Crm 454 GM Jar TOP SCH ×2 (07:34→19:45)
[2020-05-26] MEDS: ROPINIROLE 0.5 MG PO SCH (19:44)
[2020-05-26] MEDS: Famotidine 20 MG Tab PO SCH (19:44)
[2020-05-26] MEDS: WARFARIN 5 MG PO SCH (19:44)
[2020-05-26] MEDS: Melatonin 3 MG Tab PO SCH (19:44)
[2020-05-26] MEDS: Gabapentin 300 MG Cap (OWN SUPPLY) PO SCH (19:44)
[2020-05-27] MEDS: Omeprazole 20 MG Cap.CR PO SCH (06:20)
[2020-05-27] MEDS: Furosemide 20 MG Tab (OWN SUPPLY) PO SCH (07:58)
[2020-05-27] MEDS: Vitamin B Complex Tab PO SCH (07:58)
[2020-05-27] MEDS: Acetaminophen 325 MG Tab PO SCH ×3 (07:58→19:49)
[2020-05-27] MEDS: Gabapentin 100 MG Cap (OWN SUPPLY) PO SCH ×2 (07:58→12:27)
[2020-05-27] MEDS: Multivitamins with Iron/Calcium/Folic Acid/Minerals Tab PO SCH (07:59)
[2020-05-27] MEDS: Sertraline 100 MG Tab (OWN SUPPLY) PO SCH (07:59)
[2020-05-27] MEDS: Metoprolol Succinate 25 MG Tab.ER (OWN SUPPLY) PO SCH (07:59)
[2020-05-27] MEDS: ISOSORBIDE MONONITRATE 30 MG PO SCH (07:59)
[2020-05-27] MEDS: Mineral Oil/Petrolatum,White Crm 454 GM Jar TOP SCH ×2 (08:00→19:50)
[2020-05-27] MEDS: Famotidine 20 MG Tab PO SCH (19:49)
[2020-05-27] MEDS: ROPINIROLE 0.5 MG PO SCH (19:49)
[2020-05-27] MEDS: Gabapentin 300 MG Cap (OWN SUPPLY) PO SCH (19:49)
[2020-05-27] MEDS: Melatonin 3 MG Tab PO SCH (19:49)
[2020-05-27] MEDS: WARFARIN 5 MG PO SCH (19:50)
[2020-05-28] MEDS: Omeprazole 20 MG Cap.CR PO SCH (06:27)
[2020-05-28] MEDS: ISOSORBIDE MONONITRATE 30 MG PO SCH (08:16)
[2020-05-28] MEDS: Sertraline 100 MG Tab (OWN SUPPLY) PO SCH (08:16)
[2020-05-28] MEDS: Acetaminophen 325 MG Tab PO SCH ×3 (08:16→20:18)
[2020-05-28] MEDS: Furosemide 20 MG Tab (OWN SUPPLY) PO SCH (08:16)
[2020-05-28] MEDS: Mineral Oil/Petrolatum,White Crm 454 GM Jar TOP SCH ×2 (08:16→22:27)
[2020-05-28] MEDS: Metoprolol Succinate 25 MG Tab.ER (OWN SUPPLY) PO SCH (08:16)
[2020-05-28] MEDS: Gabapentin 100 MG Cap (OWN SUPPLY) PO SCH ×2 (08:17→12:27)
[2020-05-28] MEDS: Vitamin B Complex Tab PO SCH (08:17)
[2020-05-28] MEDS: Ferrous Sulfate 325 MG Tab PO SCH (08:17)
[2020-05-28] MEDS: Multivitamins with Iron/Calcium/Folic Acid/Minerals Tab PO SCH (08:17)
[2020-05-28] MEDS: WARFARIN 5 MG PO SCH (20:16)
[2020-05-28] MEDS: Melatonin 3 MG Tab PO SCH (20:16)
[2020-05-28] MEDS: Gabapentin 300 MG Cap (OWN SUPPLY) PO SCH (20:17)
[2020-05-28] MEDS: Famotidine 20 MG Tab PO SCH (20:17)
[2020-05-28] MEDS: ROPINIROLE 0.5 MG PO SCH (20:18)
[2020-05-29] MEDS: Omeprazole 20 MG Cap.CR PO SCH (07:04)
[2020-05-29] MEDS: Furosemide 20 MG Tab (OWN SUPPLY) PO SCH (09:22)
[2020-05-29] MEDS: Sertraline 100 MG Tab (OWN SUPPLY) PO SCH (09:22)
[2020-05-29] MEDS: ISOSORBIDE MONONITRATE 30 MG PO SCH (09:23)
[2020-05-29] MEDS: Multivitamins with Iron/Calcium/Folic Acid/Minerals Tab PO SCH (09:24)
[2020-05-29] MEDS: Metoprolol Succinate 25 MG Tab.ER (OWN SUPPLY) PO SCH (09:24)
[2020-05-29] MEDS: Vitamin B Complex Tab PO SCH (09:24)
[2020-05-29] MEDS: Gabapentin 100 MG Cap (OWN SUPPLY) PO SCH ×2 (09:24→13:35)
[2020-05-29] MEDS: Acetaminophen 325 MG Tab PO SCH ×3 (09:25→20:00)
[2020-05-29] MEDS: Mineral Oil/Petrolatum,White Crm 454 GM Jar TOP SCH (09:25)
[2020-05-29] MEDS: Melatonin 3 MG Tab PO SCH (20:00)
[2020-05-29] MEDS: Gabapentin 300 MG Cap (OWN SUPPLY) PO SCH (20:00)
[2020-05-29] MEDS: Famotidine 20 MG Tab PO SCH (20:00)
[2020-05-29] MEDS: WARFARIN 5 MG PO SCH (20:01)
[2020-05-29] MEDS: ROPINIROLE 0.5 MG PO SCH (20:01)
[2020-05-30] MEDS: Mineral Oil/Petrolatum,White Crm 454 GM Jar TOP SCH ×3 (00:38→20:00)
[2020-05-30] MEDS: Omeprazole 20 MG Cap.CR PO SCH (06:16)
[2020-05-30] MEDS: Acetaminophen 325 MG Tab PO SCH ×3 (12:14→20:34)
[2020-05-30] MEDS: Gabapentin 100 MG Cap (OWN SUPPLY) PO SCH ×2 (12:15→12:17)
[2020-05-30] MEDS: Ferrous Sulfate 325 MG Tab PO SCH (12:16)
[2020-05-30] MEDS: Furosemide 20 MG Tab (OWN SUPPLY) PO SCH (12:16)
[2020-05-30] MEDS: Multivitamins with Iron/Calcium/Folic Acid/Minerals Tab PO SCH (12:16)
[2020-05-30] MEDS: Vitamin B Complex Tab PO SCH (12:16)
[2020-05-30] MEDS: Metoprolol Succinate 25 MG Tab.ER (OWN SUPPLY) PO SCH (12:16)
[2020-05-30] MEDS: Sertraline 100 MG Tab (OWN SUPPLY) PO SCH (12:16)
[2020-05-30] MEDS: ISOSORBIDE MONONITRATE 30 MG PO SCH (12:17)
[2020-05-30] MEDS: Melatonin 3 MG Tab PO SCH (20:35)
[2020-05-30] MEDS: Gabapentin 300 MG Cap (OWN SUPPLY) PO SCH (20:35)
[2020-05-30] MEDS: Famotidine 20 MG Tab PO SCH (20:35)
[2020-05-30] MEDS: WARFARIN 5 MG PO SCH (20:36)
[2020-05-30] MEDS: ROPINIROLE 0.5 MG PO SCH (20:36)
[2020-05-31] MEDS: Omeprazole 20 MG Cap.CR PO SCH (06:09)
[2020-05-31] MEDS: ROPINIROLE 0.5 MG PO SCH (08:07)
[2020-05-31] MEDS: Vitamin B Complex Tab PO SCH (08:35)
[2020-05-31] MEDS: Multivitamins with Iron/Calcium/Folic Acid/Minerals Tab PO SCH (08:35)
[2020-05-31] MEDS: Furosemide 20 MG Tab (OWN SUPPLY) PO SCH (08:36)
[2020-05-31] MEDS: Sertraline 100 MG Tab (OWN SUPPLY) PO SCH (08:36)
[2020-05-31] MEDS: Metoprolol Succinate 25 MG Tab.ER (OWN SUPPLY) PO SCH (08:38)
[2020-05-31] MEDS: Acetaminophen 325 MG Tab PO SCH ×3 (08:39→19:54)
[2020-05-31] MEDS: Gabapentin 100 MG Cap (OWN SUPPLY) PO SCH ×2 (08:39→13:58)
[2020-05-31] MEDS: ISOSORBIDE MONONITRATE 30 MG PO SCH (08:39)
[2020-05-31] MEDS: Mineral Oil/Petrolatum,White Crm 454 GM Jar TOP SCH ×2 (08:43→19:52)
[2020-05-31] MEDS: Gabapentin 300 MG Cap (OWN SUPPLY) PO SCH (19:52)
[2020-05-31] MEDS: WARFARIN 5 MG PO SCH (19:53)
[2020-05-31] MEDS: Famotidine 20 MG Tab PO SCH (19:53)
[2020-05-31] MEDS: Melatonin 3 MG Tab PO SCH (19:54)
[2020-06-01] MEDS: Ferrous Sulfate 325 MG Tab PO SCH (08:39)
[2020-06-01] MEDS: Acetaminophen 325 MG Tab PO SCH ×3 (08:39→20:49)
[2020-06-01] MEDS: Furosemide 20 MG Tab (OWN SUPPLY) PO SCH (08:39)
[2020-06-01] MEDS: Multivitamins with Iron/Calcium/Folic Acid/Minerals Tab PO SCH (08:39)
[2020-06-01] MEDS: Vitamin B Complex Tab PO SCH (08:39)
[2020-06-01] MEDS: Gabapentin 100 MG Cap (OWN SUPPLY) PO SCH ×2 (08:39→13:46)
[2020-06-01] MEDS: Sertraline 100 MG Tab (OWN SUPPLY) PO SCH (08:40)
[2020-06-01] MEDS: Metoprolol Succinate 25 MG Tab.ER (OWN SUPPLY) PO SCH (08:43)
[2020-06-01] MEDS: ISOSORBIDE MONONITRATE 30 MG PO SCH (08:43)
[2020-06-01] MEDS: Omeprazole 20 MG Cap.CR PO SCH (08:44)
[2020-06-01] MEDS: Mineral Oil/Petrolatum,White Crm 454 GM Jar TOP SCH ×2 (08:46→21:40)
[2020-06-01] MEDS: Melatonin 3 MG Tab PO SCH (20:49)
[2020-06-01] MEDS: Famotidine 20 MG Tab PO SCH (20:49)
[2020-06-01] MEDS: Gabapentin 300 MG Cap (OWN SUPPLY) PO SCH (20:50)
[2020-06-01] MEDS: ROPINIROLE 0.5 MG PO SCH (20:51)
[2020-06-01] MEDS: WARFARIN 5 MG PO SCH (20:52)
[2020-06-02] MEDS: Omeprazole 20 MG Cap.CR PO SCH (06:21)
[2020-06-02] MEDS: Multivitamins with Iron/Calcium/Folic Acid/Minerals Tab PO SCH (07:58)
[2020-06-02] MEDS: Gabapentin 100 MG Cap (OWN SUPPLY) PO SCH ×2 (07:58→12:19)
[2020-06-02] MEDS: Vitamin B Complex Tab PO SCH (07:58)
[2020-06-02] MEDS: ISOSORBIDE MONONITRATE 30 MG PO SCH (07:59)
[2020-06-02] MEDS: Acetaminophen 325 MG Tab PO SCH ×3 (07:59→19:32)
[2020-06-02] MEDS: Metoprolol Succinate 25 MG Tab.ER (OWN SUPPLY) PO SCH (08:00)
[2020-06-02] MEDS: Furosemide 20 MG Tab (OWN SUPPLY) PO SCH (08:01)
[2020-06-02] MEDS: Sertraline 100 MG Tab (OWN SUPPLY) PO SCH (08:01)
[2020-06-02] MEDS: Mineral Oil/Petrolatum,White Crm 454 GM Jar TOP SCH ×2 (09:45→19:33)
[2020-06-02] MEDS: ROPINIROLE 0.5 MG PO SCH (19:31)
[2020-06-02] MEDS: Melatonin 3 MG Tab PO SCH (19:32)
[2020-06-02] MEDS: Famotidine 20 MG Tab PO SCH (19:32)
[2020-06-02] MEDS: WARFARIN 5 MG PO SCH (19:32)
[2020-06-02] MEDS: Gabapentin 300 MG Cap (OWN SUPPLY) PO SCH (19:33)
[2020-06-03] MEDS: Omeprazole 20 MG Cap.CR PO SCH (06:57)
[2020-06-03] MEDS: Acetaminophen 325 MG Tab PO SCH ×3 (08:07→20:50)
[2020-06-03] MEDS: Sertraline 100 MG Tab (OWN SUPPLY) PO SCH (08:08)
[2020-06-03] MEDS: Multivitamins with Iron/Calcium/Folic Acid/Minerals Tab PO SCH (08:08)
[2020-06-03] MEDS: Ferrous Sulfate 325 MG Tab PO SCH (08:08)
[2020-06-03] MEDS: Metoprolol Succinate 25 MG Tab.ER (OWN SUPPLY) PO SCH (08:08)
[2020-06-03] MEDS: Gabapentin 100 MG Cap (OWN SUPPLY) PO SCH ×2 (08:08→13:14)
[2020-06-03] MEDS: Furosemide 20 MG Tab (OWN SUPPLY) PO SCH (08:08)
[2020-06-03] MEDS: ISOSORBIDE MONONITRATE 30 MG PO SCH (08:08)
[2020-06-03] MEDS: Vitamin B Complex Tab PO SCH (08:08)
[2020-06-03] MEDS: Mineral Oil/Petrolatum,White Crm 454 GM Jar TOP SCH ×2 (08:12→20:52)
[2020-06-03] MEDS: Calcium Carbonate 750 MG Tab.Chew PO PRN (18:49)
[2020-06-03] MEDS: Famotidine 20 MG Tab PO SCH (20:50)
[2020-06-03] MEDS: ROPINIROLE 0.5 MG PO SCH (20:51)
[2020-06-03] MEDS: WARFARIN 5 MG PO SCH (20:51)
[2020-06-03] MEDS: Melatonin 3 MG Tab PO SCH (20:51)
[2020-06-03] MEDS: Gabapentin 300 MG Cap (OWN SUPPLY) PO SCH (20:51)
[2020-06-04] MEDS: Omeprazole 20 MG Cap.CR PO SCH (06:08)
[2020-06-04] MEDS: Multivitamins with Iron/Calcium/Folic Acid/Minerals Tab PO SCH (08:20)
[2020-06-04] MEDS: Acetaminophen 325 MG Tab PO SCH ×3 (08:21→20:19)
[2020-06-04] MEDS: Sertraline 100 MG Tab (OWN SUPPLY) PO SCH (08:21)
[2020-06-04] MEDS: Vitamin B Complex Tab PO SCH (08:21)
[2020-06-04] MEDS: Furosemide 20 MG Tab (OWN SUPPLY) PO SCH (08:22)
[2020-06-04] MEDS: ISOSORBIDE MONONITRATE 30 MG PO SCH (08:22)
[2020-06-04] MEDS: Metoprolol Succinate 25 MG Tab.ER (OWN SUPPLY) PO SCH (08:23)
[2020-06-04] MEDS: Gabapentin 100 MG Cap (OWN SUPPLY) PO SCH ×2 (08:23→12:08)
[2020-06-04] MEDS: Mineral Oil/Petrolatum,White Crm 454 GM Jar TOP SCH ×2 (08:24→20:21)
[2020-06-04] MEDS: Melatonin 3 MG Tab PO SCH (20:19)
[2020-06-04] MEDS: Famotidine 20 MG Tab PO SCH (20:19)
[2020-06-04] MEDS: Gabapentin 300 MG Cap (OWN SUPPLY) PO SCH (20:19)
[2020-06-04] MEDS: WARFARIN 5 MG PO SCH (20:20)
[2020-06-04] MEDS: ROPINIROLE 0.5 MG PO SCH (20:20)
[2020-06-04] MEDS: Calcium Carbonate 750 MG Tab.Chew PO PRN (21:42)
[2020-06-05] MEDS: Omeprazole 20 MG Cap.CR PO SCH (06:23)
[2020-06-05] MEDS: Acetaminophen 325 MG Tab PO SCH ×3 (07:31→19:39)
[2020-06-05] MEDS: Vitamin B Complex Tab PO SCH (07:31)
[2020-06-05] MEDS: Ferrous Sulfate 325 MG Tab PO SCH (07:31)
[2020-06-05] MEDS: ISOSORBIDE MONONITRATE 30 MG PO SCH (07:32)
[2020-06-05] MEDS: Multivitamins with Iron/Calcium/Folic Acid/Minerals Tab PO SCH (07:32)
[2020-06-05] MEDS: Gabapentin 100 MG Cap (OWN SUPPLY) PO SCH ×2 (07:32→13:08)
[2020-06-05] MEDS: Metoprolol Succinate 25 MG Tab.ER (OWN SUPPLY) PO SCH (07:32)
[2020-06-05] MEDS: Sertraline 100 MG Tab (OWN SUPPLY) PO SCH (07:33)
[2020-06-05] MEDS: Mineral Oil/Petrolatum,White Crm 454 GM Jar TOP SCH ×2 (07:33→19:40)
[2020-06-05] MEDS: Furosemide 20 MG Tab (OWN SUPPLY) PO SCH (07:33)
[2020-06-05] MEDS: Gabapentin 300 MG Cap (OWN SUPPLY) PO SCH (19:38)
[2020-06-05] MEDS: Melatonin 3 MG Tab PO SCH (19:38)
[2020-06-05] MEDS: ROPINIROLE 0.5 MG PO SCH (19:38)
[2020-06-05] MEDS: WARFARIN 5 MG PO SCH (19:38)
[2020-06-05] MEDS: Famotidine 20 MG Tab PO SCH (19:38)
[2020-06-06] MEDS: Omeprazole 20 MG Cap.CR PO SCH (06:31)
[2020-06-06] MEDS: Acetaminophen 325 MG Tab PO SCH ×2 (07:59→13:10)
[2020-06-06] MEDS: ISOSORBIDE MONONITRATE 30 MG PO SCH (08:00)
[2020-06-06] MEDS: Vitamin B Complex Tab PO SCH (08:00)
[2020-06-06] MEDS: Gabapentin 100 MG Cap (OWN SUPPLY) PO SCH ×2 (08:00→13:10)
[2020-06-06] MEDS: Multivitamins with Iron/Calcium/Folic Acid/Minerals Tab PO SCH (08:00)
[2020-06-06] MEDS: Furosemide 20 MG Tab (OWN SUPPLY) PO SCH (08:00)
[2020-06-06] MEDS: Sertraline 100 MG Tab (OWN SUPPLY) PO SCH (08:00)
[2020-06-06] MEDS: Metoprolol Succinate 25 MG Tab.ER (OWN SUPPLY) PO SCH (08:01)
[2020-06-06] MEDS: Mineral Oil/Petrolatum,White Crm 454 GM Jar TOP SCH ×2 (08:01→20:03)
[2020-06-06] MEDS: Acetaminophen 500 MG Tab PO PRN (20:00)
[2020-06-06] MEDS: Melatonin 3 MG Tab PO SCH (20:02)
[2020-06-06] MEDS: Famotidine 20 MG Tab PO SCH (20:03)
[2020-06-06] MEDS: ROPINIROLE 0.5 MG PO SCH (20:08)
[2020-06-06] MEDS: WARFARIN 5 MG PO SCH (20:09)
[2020-06-06] MEDS: Gabapentin 300 MG Cap (OWN SUPPLY) PO SCH (20:10)
[2020-06-07] MEDS: Omeprazole 20 MG Cap.CR PO SCH (06:43)
[2020-06-07] MEDS: Acetaminophen 325 MG Tab PO SCH ×4 (07:49→19:36)
[2020-06-07] MEDS: Vitamin B Complex Tab PO SCH (09:09)
[2020-06-07] MEDS: Sertraline 100 MG Tab (OWN SUPPLY) PO SCH (09:09)
[2020-06-07] MEDS: Furosemide 20 MG Tab (OWN SUPPLY) PO SCH (09:09)
[2020-06-07] MEDS: Ferrous Sulfate 325 MG Tab PO SCH (09:09)
[2020-06-07] MEDS: Multivitamins with Iron/Calcium/Folic Acid/Minerals Tab PO SCH (09:09)
[2020-06-07] MEDS: Mineral Oil/Petrolatum,White Crm 454 GM Jar TOP SCH ×2 (09:10→19:36)
[2020-06-07] MEDS: ISOSORBIDE MONONITRATE 30 MG PO SCH (09:10)
[2020-06-07] MEDS: Metoprolol Succinate 25 MG Tab.ER (OWN SUPPLY) PO SCH (09:10)
[2020-06-07] MEDS: Gabapentin 100 MG Cap (OWN SUPPLY) PO SCH ×2 (09:11→12:06)
[2020-06-07] MEDS: Gabapentin 300 MG Cap (OWN SUPPLY) PO SCH (19:33)
[2020-06-07] MEDS: Melatonin 3 MG Tab PO SCH (19:35)
[2020-06-07] MEDS: Famotidine 20 MG Tab PO SCH (19:35)
[2020-06-07] MEDS: WARFARIN 5 MG PO SCH (19:35)
[2020-06-07] MEDS: ROPINIROLE 0.5 MG PO SCH (19:35)
[2020-06-08] MEDS: Omeprazole 20 MG Cap.CR PO SCH (06:35)
[2020-06-08] MEDS: Gabapentin 100 MG Cap (OWN SUPPLY) PO SCH ×2 (07:30→12:12)
[2020-06-08] MEDS: Vitamin B Complex Tab PO SCH (07:31)
[2020-06-08] MEDS: Sertraline 100 MG Tab (OWN SUPPLY) PO SCH (07:31)
[2020-06-08] MEDS: Multivitamins with Iron/Calcium/Folic Acid/Minerals Tab PO SCH (07:31)
[2020-06-08] MEDS: Acetaminophen 325 MG Tab PO SCH ×3 (07:31→19:27)
[2020-06-08] MEDS: ISOSORBIDE MONONITRATE 30 MG PO SCH (07:32)
[2020-06-08] MEDS: Metoprolol Succinate 25 MG Tab.ER (OWN SUPPLY) PO SCH (07:32)
[2020-06-08] MEDS: Furosemide 20 MG Tab (OWN SUPPLY) PO SCH (07:32)
[2020-06-08] MEDS: Mineral Oil/Petrolatum,White Crm 454 GM Jar TOP SCH ×2 (07:33→19:31)
[2020-06-08] MEDS: Famotidine 20 MG Tab PO SCH (19:27)
[2020-06-08] MEDS: Melatonin 3 MG Tab PO SCH (19:27)
[2020-06-08] MEDS: ROPINIROLE 0.5 MG PO SCH (19:30)
[2020-06-08] MEDS: Gabapentin 300 MG Cap (OWN SUPPLY) PO SCH (19:30)
[2020-06-08] MEDS: WARFARIN 5 MG PO SCH (19:30)
[2020-06-09] MEDS: Omeprazole 20 MG Cap.CR PO SCH (06:22)
[2020-06-09] MEDS: Sertraline 100 MG Tab (OWN SUPPLY) PO SCH (08:04)
[2020-06-09] MEDS: Furosemide 20 MG Tab (OWN SUPPLY) PO SCH (08:04)
[2020-06-09] MEDS: Metoprolol Succinate 25 MG Tab.ER (OWN SUPPLY) PO SCH (08:04)
[2020-06-09] MEDS: ISOSORBIDE MONONITRATE 30 MG PO SCH (08:05)
[2020-06-09] MEDS: Multivitamins with Iron/Calcium/Folic Acid/Minerals Tab PO SCH (08:06)
[2020-06-09] MEDS: Acetaminophen 325 MG Tab PO SCH ×3 (08:06→19:47)
[2020-06-09] MEDS: Ferrous Sulfate 325 MG Tab PO SCH (08:06)
[2020-06-09] MEDS: Mineral Oil/Petrolatum,White Crm 454 GM Jar TOP SCH ×2 (08:06→19:48)
[2020-06-09] MEDS: Vitamin B Complex Tab PO SCH (08:06)
[2020-06-09] MEDS: Gabapentin 100 MG Cap (OWN SUPPLY) PO SCH ×2 (08:07→12:24)
[2020-06-09] MEDS: WARFARIN 5 MG PO SCH (19:46)
[2020-06-09] MEDS: ROPINIROLE 0.5 MG PO SCH (19:46)
[2020-06-09] MEDS: Gabapentin 300 MG Cap (OWN SUPPLY) PO SCH (19:46)
[2020-06-09] MEDS: Melatonin 3 MG Tab PO SCH (19:47)
[2020-06-09] MEDS: Famotidine 20 MG Tab PO SCH (19:47)
[2020-06-10] MEDS: Omeprazole 20 MG Cap.CR PO SCH (06:14)
[2020-06-10] MEDS: Gabapentin 100 MG Cap (OWN SUPPLY) PO SCH ×2 (07:22→12:37)
[2020-06-10] MEDS: Multivitamins with Iron/Calcium/Folic Acid/Minerals Tab PO SCH (07:22)
[2020-06-10] MEDS: ISOSORBIDE MONONITRATE 30 MG PO SCH (07:23)
[2020-06-10] MEDS: Vitamin B Complex Tab PO SCH (07:23)
[2020-06-10] MEDS: Sertraline 100 MG Tab (OWN SUPPLY) PO SCH (07:23)
[2020-06-10] MEDS: Furosemide 20 MG Tab (OWN SUPPLY) PO SCH (07:23)
[2020-06-10] MEDS: Acetaminophen 325 MG Tab PO SCH ×3 (07:23→20:23)
[2020-06-10] MEDS: Metoprolol Succinate 25 MG Tab.ER (OWN SUPPLY) PO SCH (07:24)
[2020-06-10] MEDS: Mineral Oil/Petrolatum,White Crm 454 GM Jar TOP SCH ×2 (07:24→20:24)
[2020-06-10] MEDS: Gabapentin 300 MG Cap (OWN SUPPLY) PO SCH (20:20)
[2020-06-10] MEDS: ROPINIROLE 0.5 MG PO SCH (20:21)
[2020-06-10] MEDS: WARFARIN 5 MG PO SCH (20:22)
[2020-06-10] MEDS: Famotidine 20 MG Tab PO SCH (20:22)
[2020-06-10] MEDS: Melatonin 3 MG Tab PO SCH (20:23)
[2020-06-11] MEDS: Omeprazole 20 MG Cap.CR PO SCH (06:16)
[2020-06-11] MEDS: Gabapentin 100 MG Cap (OWN SUPPLY) PO SCH ×2 (08:12→12:32)
[2020-06-11] MEDS: Acetaminophen 325 MG Tab PO SCH ×3 (08:12→20:42)
[2020-06-11] MEDS: ISOSORBIDE MONONITRATE 30 MG PO SCH (08:13)
[2020-06-11] MEDS: Vitamin B Complex Tab PO SCH (08:13)
[2020-06-11] MEDS: Multivitamins with Iron/Calcium/Folic Acid/Minerals Tab PO SCH (08:13)
[2020-06-11] MEDS: Ferrous Sulfate 325 MG Tab PO SCH (08:13)
[2020-06-11] MEDS: Furosemide 20 MG Tab (OWN SUPPLY) PO SCH (08:13)
[2020-06-11] MEDS: Sertraline 100 MG Tab (OWN SUPPLY) PO SCH (08:14)
[2020-06-11] MEDS: Metoprolol Succinate 25 MG Tab.ER (OWN SUPPLY) PO SCH (08:14)
[2020-06-11] MEDS: Mineral Oil/Petrolatum,White Crm 454 GM Jar TOP SCH ×2 (08:14→19:54)
[2020-06-11] MEDS: Acetaminophen 500 MG Tab PO PRN (19:50)
[2020-06-11] MEDS: Gabapentin 300 MG Cap (OWN SUPPLY) PO SCH (19:51)
[2020-06-11] MEDS: ROPINIROLE 0.5 MG PO SCH (19:51)
[2020-06-11] MEDS: Famotidine 20 MG Tab PO SCH (19:51)
[2020-06-11] MEDS: Melatonin 3 MG Tab PO SCH (19:51)
[2020-06-11] MEDS: WARFARIN 5 MG PO SCH (19:52)
[2020-06-12] MEDS: Omeprazole 20 MG Cap.CR PO SCH (06:16)
[2020-06-12] MEDS: ISOSORBIDE MONONITRATE 30 MG PO SCH (08:05)
[2020-06-12] MEDS: Gabapentin 100 MG Cap (OWN SUPPLY) PO SCH ×2 (08:05→13:48)
[2020-06-12] MEDS: Furosemide 20 MG Tab (OWN SUPPLY) PO SCH (08:05)
[2020-06-12] MEDS: Metoprolol Succinate 25 MG Tab.ER (OWN SUPPLY) PO SCH (08:05)
[2020-06-12] MEDS: Sertraline 100 MG Tab (OWN SUPPLY) PO SCH (08:05)
[2020-06-12] MEDS: Multivitamins with Iron/Calcium/Folic Acid/Minerals Tab PO SCH (08:06)
[2020-06-12] MEDS: Acetaminophen 325 MG Tab PO SCH ×3 (08:06→20:08)
[2020-06-12] MEDS: Vitamin B Complex Tab PO SCH (08:06)
[2020-06-12] MEDS: Mineral Oil/Petrolatum,White Crm 454 GM Jar TOP SCH ×2 (08:06→20:10)
[2020-06-12] MEDS: ROPINIROLE 0.5 MG PO SCH (20:06)
[2020-06-12] MEDS: Gabapentin 300 MG Cap (OWN SUPPLY) PO SCH (20:06)
[2020-06-12] MEDS: WARFARIN 5 MG PO SCH (20:06)
[2020-06-12] MEDS: Melatonin 3 MG Tab PO SCH (20:07)
[2020-06-12] MEDS: Famotidine 20 MG Tab PO SCH (20:08)
[2020-06-13] MEDS: Omeprazole 20 MG Cap.CR PO SCH (06:11)
[2020-06-13] MEDS: Metoprolol Succinate 25 MG Tab.ER (OWN SUPPLY) PO SCH (08:24)
[2020-06-13] MEDS: ISOSORBIDE MONONITRATE 30 MG PO SCH (08:24)
[2020-06-13] MEDS: Furosemide 20 MG Tab (OWN SUPPLY) PO SCH (08:24)
[2020-06-13] MEDS: Sertraline 100 MG Tab (OWN SUPPLY) PO SCH (08:24)
[2020-06-13] MEDS: Mineral Oil/Petrolatum,White Crm 454 GM Jar TOP SCH ×2 (08:25→19:24)
[2020-06-13] MEDS: Gabapentin 100 MG Cap (OWN SUPPLY) PO SCH ×2 (08:25→12:32)
[2020-06-13] MEDS: Vitamin B Complex Tab PO SCH (08:26)
[2020-06-13] MEDS: Ferrous Sulfate 325 MG Tab PO SCH (08:26)
[2020-06-13] MEDS: Acetaminophen 325 MG Tab PO SCH ×3 (08:26→19:22)
[2020-06-13] MEDS: Multivitamins with Iron/Calcium/Folic Acid/Minerals Tab PO SCH (08:26)
[2020-06-13] MEDS: Gabapentin 300 MG Cap (OWN SUPPLY) PO SCH (19:19)
[2020-06-13] MEDS: WARFARIN 5 MG PO SCH (19:21)
[2020-06-13] MEDS: ROPINIROLE 0.5 MG PO SCH (19:21)
[2020-06-13] MEDS: Melatonin 3 MG Tab PO SCH (19:22)
[2020-06-13] MEDS: Famotidine 20 MG Tab PO SCH (19:22)
[2020-06-14] MEDS: Omeprazole 20 MG Cap.CR PO SCH (06:13)
[2020-06-14] MEDS: Acetaminophen 325 MG Tab PO SCH ×3 (07:24→20:13)
[2020-06-14] MEDS: Furosemide 20 MG Tab (OWN SUPPLY) PO SCH (07:24)
[2020-06-14] MEDS: Vitamin B Complex Tab PO SCH (07:24)
[2020-06-14] MEDS: Multivitamins with Iron/Calcium/Folic Acid/Minerals Tab PO SCH (07:24)
[2020-06-14] MEDS: Sertraline 100 MG Tab (OWN SUPPLY) PO SCH (07:25)
[2020-06-14] MEDS: ISOSORBIDE MONONITRATE 30 MG PO SCH (07:25)
[2020-06-14] MEDS: Metoprolol Succinate 25 MG Tab.ER (OWN SUPPLY) PO SCH (07:26)
[2020-06-14] MEDS: Gabapentin 100 MG Cap (OWN SUPPLY) PO SCH ×2 (07:26→12:09)
[2020-06-14] MEDS: Mineral Oil/Petrolatum,White Crm 454 GM Jar TOP SCH ×2 (07:27→20:14)
[2020-06-14] MEDS: Calcium Carbonate 750 MG Tab.Chew PO PRN (12:21)
[2020-06-14] MEDS: Gabapentin 300 MG Cap (OWN SUPPLY) PO SCH (20:10)
[2020-06-14] MEDS: ROPINIROLE 0.5 MG PO SCH (20:12)
[2020-06-14] MEDS: WARFARIN 5 MG PO SCH (20:12)
[2020-06-14] MEDS: Melatonin 3 MG Tab PO SCH (20:12)
[2020-06-14] MEDS: Famotidine 20 MG Tab PO SCH (20:13)
[2020-06-15] MEDS: Metoprolol Succinate 25 MG Tab.ER (OWN SUPPLY) PO SCH (07:46)
[2020-06-15] MEDS: Vitamin B Complex Tab PO SCH (07:46)
[2020-06-15] MEDS: Multivitamins with Iron/Calcium/Folic Acid/Minerals Tab PO SCH (07:46)
[2020-06-15] MEDS: Ferrous Sulfate 325 MG Tab PO SCH (07:46)
[2020-06-15] MEDS: Gabapentin 100 MG Cap (OWN SUPPLY) PO SCH ×2 (07:47→12:05)
[2020-06-15] MEDS: Sertraline 100 MG Tab (OWN SUPPLY) PO SCH (07:47)
[2020-06-15] MEDS: ISOSORBIDE MONONITRATE 30 MG PO SCH (07:47)
[2020-06-15] MEDS: Acetaminophen 325 MG Tab PO SCH ×3 (07:47→19:37)
[2020-06-15] MEDS: Mineral Oil/Petrolatum,White Crm 454 GM Jar TOP SCH ×2 (07:48→19:38)
[2020-06-15] MEDS: Furosemide 20 MG Tab (OWN SUPPLY) PO SCH (07:48)
[2020-06-15] MEDS: Omeprazole 20 MG Cap.CR PO SCH (07:56)
[2020-06-15] MEDS: Melatonin 3 MG Tab PO SCH (19:37)
[2020-06-15] MEDS: Gabapentin 300 MG Cap (OWN SUPPLY) PO SCH (19:37)
[2020-06-15] MEDS: ROPINIROLE 0.5 MG PO SCH (19:37)
[2020-06-15] MEDS: Famotidine 20 MG Tab PO SCH (19:37)
[2020-06-15] MEDS: WARFARIN 5 MG PO SCH (19:37)
[2020-06-16] MEDS: Omeprazole 20 MG Cap.CR PO SCH (06:15)
[2020-06-16] MEDS: Furosemide 20 MG Tab (OWN SUPPLY) PO SCH (08:48)
[2020-06-16] MEDS: Vitamin B Complex Tab PO SCH (08:48)
[2020-06-16] MEDS: Acetaminophen 325 MG Tab PO SCH ×3 (08:48→19:28)
[2020-06-16] MEDS: ISOSORBIDE MONONITRATE 30 MG PO SCH (08:48)
[2020-06-16] MEDS: Multivitamins with Iron/Calcium/Folic Acid/Minerals Tab PO SCH (08:48)
[2020-06-16] MEDS: Sertraline 100 MG Tab (OWN SUPPLY) PO SCH (08:48)
[2020-06-16] MEDS: Gabapentin 100 MG Cap (OWN SUPPLY) PO SCH ×2 (08:48→13:25)
[2020-06-16] MEDS: Metoprolol Succinate 25 MG Tab.ER (OWN SUPPLY) PO SCH (08:49)
[2020-06-16] MEDS: Mineral Oil/Petrolatum,White Crm 454 GM Jar TOP SCH ×2 (08:49→19:32)
[2020-06-16] MEDS: Gabapentin 300 MG Cap (OWN SUPPLY) PO SCH (19:27)
[2020-06-16] MEDS: Famotidine 20 MG Tab PO SCH (19:28)
[2020-06-16] MEDS: ROPINIROLE 0.5 MG PO SCH (19:28)
[2020-06-16] MEDS: WARFARIN 5 MG PO SCH (19:28)
[2020-06-16] MEDS: Melatonin 3 MG Tab PO SCH (19:28)
[2020-06-17] MEDS: Omeprazole 20 MG Cap.CR PO SCH (06:32)
[2020-06-17] MEDS: ISOSORBIDE MONONITRATE 30 MG PO SCH (08:53)
[2020-06-17] MEDS: Furosemide 20 MG Tab (OWN SUPPLY) PO SCH (08:53)
[2020-06-17] MEDS: Sertraline 100 MG Tab (OWN SUPPLY) PO SCH (08:53)
[2020-06-17] MEDS: Metoprolol Succinate 25 MG Tab.ER (OWN SUPPLY) PO SCH (08:53)
[2020-06-17] MEDS: Mineral Oil/Petrolatum,White Crm 454 GM Jar TOP SCH ×2 (08:54→19:44)
[2020-06-17] MEDS: Acetaminophen 325 MG Tab PO SCH ×3 (08:54→19:43)
[2020-06-17] MEDS: Gabapentin 100 MG Cap (OWN SUPPLY) PO SCH ×2 (08:54→13:32)
[2020-06-17] MEDS: Multivitamins with Iron/Calcium/Folic Acid/Minerals Tab PO SCH (08:55)
[2020-06-17] MEDS: Vitamin B Complex Tab PO SCH (08:55)
[2020-06-17] MEDS: Ferrous Sulfate 325 MG Tab PO SCH (08:55)
[2020-06-17] MEDS: Gabapentin 300 MG Cap (OWN SUPPLY) PO SCH (19:42)
[2020-06-17] MEDS: WARFARIN 5 MG PO SCH (19:42)
[2020-06-17] MEDS: ROPINIROLE 0.5 MG PO SCH (19:42)
[2020-06-17] MEDS: Melatonin 3 MG Tab PO SCH (19:43)
[2020-06-17] MEDS: Famotidine 20 MG Tab PO SCH (19:43)
[2020-06-18] MEDS: Omeprazole 20 MG Cap.CR PO SCH (06:14)
[2020-06-18] MEDS: Acetaminophen 325 MG Tab PO SCH ×3 (08:11→19:34)
[2020-06-18] MEDS: Metoprolol Succinate 25 MG Tab.ER (OWN SUPPLY) PO SCH (08:11)
[2020-06-18] MEDS: Vitamin B Complex Tab PO SCH (08:11)
[2020-06-18] MEDS: Multivitamins with Iron/Calcium/Folic Acid/Minerals Tab PO SCH (08:11)
[2020-06-18] MEDS: Gabapentin 100 MG Cap (OWN SUPPLY) PO SCH ×2 (08:12→12:42)
[2020-06-18] MEDS: Furosemide 20 MG Tab (OWN SUPPLY) PO SCH (08:12)
[2020-06-18] MEDS: ISOSORBIDE MONONITRATE 30 MG PO SCH (08:12)
[2020-06-18] MEDS: Sertraline 100 MG Tab (OWN SUPPLY) PO SCH (08:12)
[2020-06-18] MEDS: Mineral Oil/Petrolatum,White Crm 454 GM Jar TOP SCH ×2 (08:13→19:38)
[2020-06-18] MEDS: Famotidine 20 MG Tab PO SCH (19:34)
[2020-06-18] MEDS: Melatonin 3 MG Tab PO SCH (19:34)
[2020-06-18] MEDS: ROPINIROLE 0.5 MG PO SCH (19:36)
[2020-06-18] MEDS: Gabapentin 300 MG Cap (OWN SUPPLY) PO SCH (19:36)
[2020-06-18] MEDS: WARFARIN 5 MG PO SCH (19:36)
[2020-06-19] MEDS: Omeprazole 20 MG Cap.CR PO SCH (06:20)
[2020-06-19] MEDS: Gabapentin 100 MG Cap (OWN SUPPLY) PO SCH ×2 (09:26→13:19)
[2020-06-19] MEDS: Furosemide 20 MG Tab (OWN SUPPLY) PO SCH (09:26)
[2020-06-19] MEDS: Metoprolol Succinate 25 MG Tab.ER (OWN SUPPLY) PO SCH (09:27)
[2020-06-19] MEDS: Sertraline 100 MG Tab (OWN SUPPLY) PO SCH (09:27)
[2020-06-19] MEDS: ISOSORBIDE MONONITRATE 30 MG PO SCH (09:28)
[2020-06-19] MEDS: Multivitamins with Iron/Calcium/Folic Acid/Minerals Tab PO SCH (09:28)
[2020-06-19] MEDS: Vitamin B Complex Tab PO SCH (09:29)
[2020-06-19] MEDS: Ferrous Sulfate 325 MG Tab PO SCH (09:29)
[2020-06-19] MEDS: Acetaminophen 325 MG Tab PO SCH ×3 (09:29→19:47)
[2020-06-19] MEDS: Mineral Oil/Petrolatum,White Crm 454 GM Jar TOP SCH ×2 (09:32→19:52)
[2020-06-19] MEDS: Famotidine 20 MG Tab PO SCH (19:47)
[2020-06-19] MEDS: Melatonin 3 MG Tab PO SCH (19:47)
[2020-06-19] MEDS: ROPINIROLE 0.5 MG PO SCH (19:49)
[2020-06-19] MEDS: WARFARIN 5 MG PO SCH (19:49)
[2020-06-19] MEDS: Gabapentin 300 MG Cap (OWN SUPPLY) PO SCH (19:49)
[2020-06-20] MEDS: Omeprazole 20 MG Cap.CR PO SCH (06:21)
[2020-06-20] MEDS: Acetaminophen 325 MG Tab PO SCH ×3 (08:55→20:15)
[2020-06-20] MEDS: Sertraline 100 MG Tab (OWN SUPPLY) PO SCH (08:56)
[2020-06-20] MEDS: Furosemide 20 MG Tab (OWN SUPPLY) PO SCH (08:56)
[2020-06-20] MEDS: Vitamin B Complex Tab PO SCH (08:56)
[2020-06-20] MEDS: Multivitamins with Iron/Calcium/Folic Acid/Minerals Tab PO SCH (08:56)
[2020-06-20] MEDS: ISOSORBIDE MONONITRATE 30 MG PO SCH (08:57)
[2020-06-20] MEDS: Metoprolol Succinate 25 MG Tab.ER (OWN SUPPLY) PO SCH (08:57)
[2020-06-20] MEDS: Gabapentin 100 MG Cap (OWN SUPPLY) PO SCH ×2 (08:58→12:53)
[2020-06-20] MEDS: Mineral Oil/Petrolatum,White Crm 454 GM Jar TOP SCH ×2 (08:58→20:15)
[2020-06-20] MEDS: Gabapentin 300 MG Cap (OWN SUPPLY) PO SCH (20:11)
[2020-06-20] MEDS: ROPINIROLE 0.5 MG PO SCH (20:14)
[2020-06-20] MEDS: Famotidine 20 MG Tab PO SCH (20:14)
[2020-06-20] MEDS: WARFARIN 5 MG PO SCH (20:14)
[2020-06-20] MEDS: Melatonin 3 MG Tab PO SCH (20:14)
[2020-06-21] MEDS: Omeprazole 20 MG Cap.CR PO SCH (06:36)
[2020-06-21] MEDS: Gabapentin 100 MG Cap (OWN SUPPLY) PO SCH ×2 (08:33→13:19)
[2020-06-21] MEDS: Furosemide 20 MG Tab (OWN SUPPLY) PO SCH (08:34)
[2020-06-21] MEDS: Metoprolol Succinate 25 MG Tab.ER (OWN SUPPLY) PO SCH (08:34)
[2020-06-21] MEDS: Ferrous Sulfate 325 MG Tab PO SCH (08:34)
[2020-06-21] MEDS: Vitamin B Complex Tab PO SCH (08:34)
[2020-06-21] MEDS: Multivitamins with Iron/Calcium/Folic Acid/Minerals Tab PO SCH (08:34)
[2020-06-21] MEDS: Acetaminophen 325 MG Tab PO SCH ×3 (08:34→19:50)
[2020-06-21] MEDS: ISOSORBIDE MONONITRATE 30 MG PO SCH (08:34)
[2020-06-21] MEDS: Sertraline 100 MG Tab (OWN SUPPLY) PO SCH (08:34)
[2020-06-21] MEDS: Mineral Oil/Petrolatum,White Crm 454 GM Jar TOP SCH ×2 (08:35→19:53)
[2020-06-21] MEDS: BUSPIRONE 5 MG PO SCH ×2 (13:19→19:53)
--- NOTE | 2020-06-21 15:20 | PCM.PN ---
- General Info Date of Service: 06/21/20 Admission Dx/Problem (Free Text): Failure to Thrive, Bilateral LE weakness Subjective Update: Patient has been doing well. She has no acute complaints today. Still has intermittent RUE pain; discharged from OT services due to improvement. Right lower joshi wound still healing; slowly. Mood is down over the last month; confirmed with nursing staff. Gert is very down about the fact that family never reaches out or comes to see her. Functional Status: Reports: Pain Controlled - Review of Systems General: Reports: Weakness HEENT: Reports: No Symptoms Pulmonary: Reports: No Symptoms Cardiovascular: Reports: Edema Gastrointestinal: Reports: No Symptoms, Other (intermittent bowel incontinence) Genitourinary: Reports: No Symptoms Musculoskeletal: Reports: No Symptoms Skin: Reports: No Symptoms Psychiatric: Reports: Depression - Patient Data Vitals - Most Recent: Last Vital Signs Temp 97.6 F 06/21/20 06:00 Pulse 72 06/21/20 08:34 Resp 17 04/30/20 08:42 BP 140/66 06/21/20 08:34 Pulse Ox 95 06/08/20 09:38 Weight - Most Recent: 184 lb 9.6 oz I&O - Last 24 Hours: Intake & Output 06/21/20 06/21/20 06/21/20 06:59 14:59 22:59 Intake Total 300 Balance 300 Med Orders - Current: Current Medications Acetaminophen (Tylenol Extra Strength) 1,000 mg PO BID PRN PRN Reason: Pain/Fever Last Admin: 06/06/20 20:00 Dose: 1,000 mg Documented by: Acetaminophen (Tylenol) 650 mg PO TID@0800,1300,1999 [facility] Last Admin: 06/21/20 13:19 Dose: 650 mg Documented by: Buspirone HCl (Buspar) 5 mg PO TID@0800,1300,1999 [facility] Last Admin: 06/21/20 13:19 Dose: 5 mg Documented by: Calcium Carbonate/Glycine (Tums Extra Strength) 750 mg PO TID PRN PRN Reason: Dyspepsia Last Admin: 06/14/20 12:21 Dose: 750 mg Documented by: Docusate Sodium (Colace) 100 mg PO DAILY PRN PRN Reason: Constipation Famotidine (Pepcid) 20 mg PO BEDTIME [facility] Last Admin: 06/20/20 20:14 Dose: 20 mg Documented by: Ferrous Sulfate (Ferrous Sulfate) 325 mg PO Q48H [facility] Last Admin: 06/21/20 08:34 Dose: 325 mg Documented by: Furosemide (Lasix) 20 mg PO DAILY [facility] Last Admin: 06/21/20 08:34 Dose: 20 mg Documented by: Gabapentin (Neurontin) 100 mg PO BID@0800,1300 [facility] Last Admin: 06/21/20 13:19 Dose: 100 mg Documented by: Gabapentin (Neurontin) 300 mg PO BEDTIME [facility] Last Admin: 06/20/20 20:11 Dose: 300 mg Documented by: Isosorbide Mononitrate (Imdur) 30 mg PO DAILY [facility] Last Admin: 06/21/20 08:34 Dose: 30 mg Documented by: Loperamide HCl (Imodium) 2 mg PO Q12H PRN PRN Reason: Diarrhea Last Admin: 04/28/20 08:38 Dose: 2 mg Documented by: Melatonin (Melatonin) 6 mg PO BEDTIME [facility] Last Admin: 06/20/20 20:14 Dose: 6 mg Documented by: Metoprolol Succinate (Toprol Xl) 25 mg PO DAILY [facility] Last Admin: 06/21/20 08:34 Dose: 25 mg Documented by: Miconazole (Desenex 2%) 0 gm TOP BID PRN PRN Reason: RASH UNDER BILATERAL BREASTS Mineral Oil/White Petrolatum (Minerin Creme) 0 gm TOP BID [facility] Last Admin: 06/21/20 08:35 Dose: 1 applic Documented by: Multivitamins/Minerals (Thera M Plus) 1 tab PO DAILY [facility] Last Admin: 06/21/20 08:34 Dose: 1 tab Documented by: Nitroglycerin (Nitrostat) 0.4 mg SL Q5M PRN PRN Reason: Chest Pain Omeprazole (Omeprazole) 20 mg PO DAILY@0700 [facility] Last Admin: 06/21/20 06:36 Dose: 20 mg Documented by: Pharmacy Consult (Consult To Pharmacy) 1 each .XX ASDIRECTED [facility] Polyethylene Glycol (Miralax) 17 gm PO DAILY PRN PRN Reason: Constipation Ropinirole HCl (Requip) 0.5 mg PO BEDTIME [facility] Last Admin: 06/20/20 20:14 Dose: 0.5 mg Documented by: Senna/Docusate Sodium (Senna Plus) 1 tab PO DAILY PRN PRN Reason: Constipation Sertraline HCl (Zoloft) 100 mg PO DAILY [facility] Last Admin: 06/21/20 08:34 Dose: 100 mg Documented by: Vitamin B Complex (Vitamin B Complex) 1 each PO DAILY [facility] Last Admin: 06/21/20 08:34 Dose: 1 each Documented by: Warfarin Sodium (Coumadin) 5 mg PO SuMoTuWeFrSa@1999 [facility] Last Admin: 06/20/20 20:14 Dose: 5 mg Documented by: Warfarin Sodium (Coumadin) 2.5 mg PO Th@1999 [facility] Last Admin: 06/17/20 19:42 Dose: 2.5 mg Documented by: Discontinued Medications Buspirone HCl (Buspar) 5 mg PO BID [facility] Last Admin: 06/21/20 08:34 Dose: 5 mg Documented by: Ciprofloxacin (Ciprofloxacin Hcl) 500 mg PO Q24H [facility] Stop: 03/04/20 20:01 Last Admin: 03/04/20 19:24 Dose: 500 mg Documented by: Famotidine (Pepcid) 20 mg PO DAILY [facility] Last Admin: 02/20/20 08:14 Dose: 20 mg Documented by: Furosemide (Lasix) 20 mg PO DAILY@1200 [facility] Stop: 04/18/20 12:01 Last Admin: 04/18/20 12:16 Dose: 20 mg Documented by: Nitrofurantoin Macrocrystals (Macrobid) 100 mg PO BID [facility] Stop: 03/07/20 08:31 Last Admin: 02/29/20 09:00 Dose: 100 mg Documented by: Omeprazole (Omeprazole) 20 mg PO DAILY [facility] Last Admin: 02/20/20 08:14 Dose: 20 mg Documented by: - Exam Quality Assessment: Supplemental Oxygen General: Alert, Oriented HEENT: Mucous Membr. Moist/[place] Neck: Supple Lungs: Clear to Auscultation, Normal Respiratory Effort Cardiovascular: Regular Rate, Regular Rhythm GI/Abdominal Exam: Normal Bowel Sounds, Soft, Non-Tender Skin: Warm, Dry Wound/Incisions: Healing Well (open area now measures maybe 3mm at its widest, surrounding skin is very thin/fragile but healing) Psy/Mental Status: Alert, Depressed Sepsis Event Note - Evaluation Sepsis Screening Result: No Definite Risk - Focused Exam Vital Signs: Vital Signs Temp Pulse BP 06/21/20 08:34 72 140/66 06/21/20 06:00 97.6 F - Problem List & Annotations (1) Need for assistance with personal care SNOMED Code(s): 90502064843349636 Code(s): Z74.1 - NEED FOR ASSISTANCE WITH PERSONAL CARE Status: Acute Current Visit: No (2) Anxiety SNOMED Code(s): 81951740 Code(s): F41.9 - ANXIETY DISORDER, UNSPECIFIED Status: Chronic Current Visit: No (3) CKD (chronic kidney disease) SNOMED Code(s): 394369507 Code(s): N18.9 - CHRONIC KIDNEY DISEASE, UNSPECIFIED Status: Chronic Current Visit: No (4) COPD (chronic obstructive pulmonary disease) SNOMED Code(s): 29311935 Code(s): J44.9 - CHRONIC OBSTRUCTIVE PULMONARY DISEASE, UNSPECIFIED Status: Chronic Current Visit: No (5) Depression SNOMED Code(s): 71906686 Code(s): F32.9 - MAJOR DEPRESSIVE DISORDER, SINGLE EPISODE, UNSPECIFIED Status: Chronic Current Visit: No (6) Diastolic HF (heart failure) SNOMED Code(s): 546046049 Code(s): I50.30 - UNSPECIFIED DIASTOLIC (CONGESTIVE) HEART FAILURE Status: Chronic Current Visit: No (7) GERD (gastroesophageal reflux disease) SNOMED Code(s): 079450190 Code(s): K21.9 - GASTRO-ESOPHAGEAL REFLUX DISEASE WITHOUT ESOPHAGITIS Status: Chronic Current Visit: No (8) Hypertension SNOMED Code(s): 69178796 Code(s): I10 - ESSENTIAL (PRIMARY) HYPERTENSION Status: Chronic Current Visit: No - Problem List Review Problem List Initiated/Reviewed/Updated: Yes - My Orders Last 24 Hours: My Active Orders 06/21/20 13:00 busPIRone [Buspar] 5 mg PO TID@0800,1300,2000 07/05/20 07:00 INR,PT,PROTHROMBIN TIME [[facility]] Q28D 08/02/20 07:00 INR,PT,PROTHROMBIN TIME [[facility]] Q28D 08/30/20 07:00 INR,PT,PROTHROMBIN TIME [[facility]] Q28D 09/27/20 07:00 INR,PT,PROTHROMBIN TIME [[facility]] Q28D 10/25/20 07:00 INR,PT,PROTHROMBIN TIME [[facility]] Q28D - Assessment Assessment:: Failure to Thrive Chronic Leg Weakness - Patient is long-term swing bed stay for assistance with ADLs due to the above Plan: - Continue regular daily care is as previously prescribed - Continue physical therapy as previously prescribed Leg wound Diastolic CHF - Healing very well, albeit slowly Plan: - Continue current wound cares - Discussed use of compression stockings/DARBY, patient refuses - Discussed possibly referral to wound clinic, patient defers Depression - Patients mood more depressed than in the past Plan: - Increase Bespar to 5mg TID - Reassess next month Breast Cancer, s/p lumpectomy - plan for follow-up with oncology as previously planned (repeat breast exam every 6 months, f/u visit with one in Dec 2020 with mammo) HTN - continue metoprolol 25mg daily GERD - continue omeprazole 20mg daily, prn Pepcid 20mg, prn Tums Anxiety/Depression - continue Zoloft 100mg daily, BuSpar 5mg TID Angina - continue Imdur 30mg daily, prn Nitro Restless legs - Requip 0.5mg at bedtime Chronic pain - Gabapentin 100mg am and noon, 300mg at supper Hx DVT - continue Warfarin, serial INR per pharmacy Peripheral edema - continue Lasix 20mg daily Constipation - continue Colace 100mg dialy, prn miralax Fe-def anemia - continue iron 325mg e/o day Insomnia - continue melatonin 3mg at bedtime Chronic respiratory failure - continue supplemental O2 Fungal rash - continue prn miconazole
[2020-06-21] MEDS: Melatonin 3 MG Tab PO SCH (19:50)
[2020-06-21] MEDS: Famotidine 20 MG Tab PO SCH (19:50)
[2020-06-21] MEDS: Gabapentin 300 MG Cap (OWN SUPPLY) PO SCH (19:52)
[2020-06-21] MEDS: ROPINIROLE 0.5 MG PO SCH (19:52)
[2020-06-21] MEDS: WARFARIN 5 MG PO SCH (19:53)
[2020-06-22] MEDS: Omeprazole 20 MG Cap.CR PO SCH (06:21)
[2020-06-22] MEDS: BUSPIRONE 5 MG PO SCH ×3 (07:21→19:51)
[2020-06-22] MEDS: Multivitamins with Iron/Calcium/Folic Acid/Minerals Tab PO SCH (07:21)
[2020-06-22] MEDS: Acetaminophen 325 MG Tab PO SCH ×3 (07:21→19:52)
[2020-06-22] MEDS: Vitamin B Complex Tab PO SCH (07:21)
[2020-06-22] MEDS: Sertraline 100 MG Tab (OWN SUPPLY) PO SCH (07:21)
[2020-06-22] MEDS: Gabapentin 100 MG Cap (OWN SUPPLY) PO SCH ×2 (07:22→12:16)
[2020-06-22] MEDS: Furosemide 20 MG Tab (OWN SUPPLY) PO SCH (07:22)
[2020-06-22] MEDS: ISOSORBIDE MONONITRATE 30 MG PO SCH (07:22)
[2020-06-22] MEDS: Metoprolol Succinate 25 MG Tab.ER (OWN SUPPLY) PO SCH (07:23)
[2020-06-22] MEDS: Mineral Oil/Petrolatum,White Crm 454 GM Jar TOP SCH ×2 (07:25→19:52)
[2020-06-22] MEDS: Calcium Carbonate 750 MG Tab.Chew PO PRN (18:24)
[2020-06-22] MEDS: WARFARIN 5 MG PO SCH (19:51)
[2020-06-22] MEDS: Gabapentin 300 MG Cap (OWN SUPPLY) PO SCH (19:51)
[2020-06-22] MEDS: ROPINIROLE 0.5 MG PO SCH (19:51)
[2020-06-22] MEDS: Famotidine 20 MG Tab PO SCH (19:52)
[2020-06-22] MEDS: Melatonin 3 MG Tab PO SCH (19:52)
[2020-06-23] MEDS: Omeprazole 20 MG Cap.CR PO SCH (06:39)
[2020-06-23] MEDS: Multivitamins with Iron/Calcium/Folic Acid/Minerals Tab PO SCH (07:17)
[2020-06-23] MEDS: Vitamin B Complex Tab PO SCH (07:17)
[2020-06-23] MEDS: Ferrous Sulfate 325 MG Tab PO SCH (07:17)
[2020-06-23] MEDS: Acetaminophen 325 MG Tab PO SCH ×3 (07:18→20:40)
[2020-06-23] MEDS: BUSPIRONE 5 MG PO SCH ×3 (07:18→20:42)
[2020-06-23] MEDS: ISOSORBIDE MONONITRATE 30 MG PO SCH (07:18)
[2020-06-23] MEDS: Metoprolol Succinate 25 MG Tab.ER (OWN SUPPLY) PO SCH (07:18)
[2020-06-23] MEDS: Sertraline 100 MG Tab (OWN SUPPLY) PO SCH (07:19)
[2020-06-23] MEDS: Gabapentin 100 MG Cap (OWN SUPPLY) PO SCH ×2 (07:19→12:20)
[2020-06-23] MEDS: Furosemide 20 MG Tab (OWN SUPPLY) PO SCH (07:19)
[2020-06-23] MEDS: Mineral Oil/Petrolatum,White Crm 454 GM Jar TOP SCH ×2 (08:08→20:44)
[2020-06-23] MEDS: Calcium Carbonate 750 MG Tab.Chew PO PRN (12:19)
[2020-06-23] MEDS: Melatonin 3 MG Tab PO SCH (20:40)
[2020-06-23] MEDS: Famotidine 20 MG Tab PO SCH (20:40)
[2020-06-23] MEDS: Gabapentin 300 MG Cap (OWN SUPPLY) PO SCH (20:42)
[2020-06-23] MEDS: ROPINIROLE 0.5 MG PO SCH (20:43)
[2020-06-23] MEDS: WARFARIN 5 MG PO SCH (20:44)
[2020-06-24] MEDS: Omeprazole 20 MG Cap.CR PO SCH (06:46)
[2020-06-24] MEDS: Acetaminophen 325 MG Tab PO SCH ×3 (08:17→20:16)
[2020-06-24] MEDS: Gabapentin 100 MG Cap (OWN SUPPLY) PO SCH ×2 (08:17→12:30)
[2020-06-24] MEDS: BUSPIRONE 5 MG PO SCH ×3 (08:18→20:17)
[2020-06-24] MEDS: ISOSORBIDE MONONITRATE 30 MG PO SCH (08:18)
[2020-06-24] MEDS: Sertraline 100 MG Tab (OWN SUPPLY) PO SCH (08:18)
[2020-06-24] MEDS: Furosemide 20 MG Tab (OWN SUPPLY) PO SCH (08:18)
[2020-06-24] MEDS: Vitamin B Complex Tab PO SCH (08:18)
[2020-06-24] MEDS: Calcium Carbonate 750 MG Tab.Chew PO PRN (08:19)
[2020-06-24] MEDS: Metoprolol Succinate 25 MG Tab.ER (OWN SUPPLY) PO SCH (08:19)
[2020-06-24] MEDS: Mineral Oil/Petrolatum,White Crm 454 GM Jar TOP SCH ×2 (08:20→20:18)
[2020-06-24] MEDS: Multivitamins with Iron/Calcium/Folic Acid/Minerals Tab PO SCH (08:20)
[2020-06-24] MEDS: Melatonin 3 MG Tab PO SCH (20:15)
[2020-06-24] MEDS: Famotidine 20 MG Tab PO SCH (20:16)
[2020-06-24] MEDS: Gabapentin 300 MG Cap (OWN SUPPLY) PO SCH (20:16)
[2020-06-24] MEDS: ROPINIROLE 0.5 MG PO SCH (20:17)
[2020-06-24] MEDS: WARFARIN 5 MG PO SCH (20:17)
[2020-06-25] MEDS: Omeprazole 20 MG Cap.CR PO SCH (06:07)
[2020-06-25] MEDS: Sertraline 100 MG Tab (OWN SUPPLY) PO SCH (09:02)
[2020-06-25] MEDS: Ferrous Sulfate 325 MG Tab PO SCH (09:02)
[2020-06-25] MEDS: Acetaminophen 325 MG Tab PO SCH ×3 (09:02→19:24)
[2020-06-25] MEDS: Furosemide 20 MG Tab (OWN SUPPLY) PO SCH (09:02)
[2020-06-25] MEDS: Multivitamins with Iron/Calcium/Folic Acid/Minerals Tab PO SCH (09:02)
[2020-06-25] MEDS: Gabapentin 100 MG Cap (OWN SUPPLY) PO SCH ×2 (09:02→13:02)
[2020-06-25] MEDS: Vitamin B Complex Tab PO SCH (09:03)
[2020-06-25] MEDS: Mineral Oil/Petrolatum,White Crm 454 GM Jar TOP SCH ×2 (09:03→19:25)
[2020-06-25] MEDS: ISOSORBIDE MONONITRATE 30 MG PO SCH (09:05)
[2020-06-25] MEDS: Metoprolol Succinate 25 MG Tab.ER (OWN SUPPLY) PO SCH (09:06)
[2020-06-25] MEDS: BUSPIRONE 5 MG PO SCH ×3 (09:35→19:24)
[2020-06-25] MEDS: WARFARIN 5 MG PO SCH (19:24)
[2020-06-25] MEDS: ROPINIROLE 0.5 MG PO SCH (19:24)
[2020-06-25] MEDS: Melatonin 3 MG Tab PO SCH (19:24)
[2020-06-25] MEDS: Gabapentin 300 MG Cap (OWN SUPPLY) PO SCH (19:24)
[2020-06-25] MEDS: Famotidine 20 MG Tab PO SCH (19:24)
[2020-06-26] MEDS: Omeprazole 20 MG Cap.CR PO SCH (06:38)
[2020-06-26] MEDS: Furosemide 20 MG Tab (OWN SUPPLY) PO SCH (08:29)
[2020-06-26] MEDS: Sertraline 100 MG Tab (OWN SUPPLY) PO SCH (08:29)
[2020-06-26] MEDS: BUSPIRONE 5 MG PO SCH ×3 (08:29→19:23)
[2020-06-26] MEDS: Vitamin B Complex Tab PO SCH (08:30)
[2020-06-26] MEDS: Multivitamins with Iron/Calcium/Folic Acid/Minerals Tab PO SCH (08:30)
[2020-06-26] MEDS: Gabapentin 100 MG Cap (OWN SUPPLY) PO SCH ×2 (08:30→14:15)
[2020-06-26] MEDS: Acetaminophen 325 MG Tab PO SCH ×3 (08:30→19:24)
[2020-06-26] MEDS: Metoprolol Succinate 25 MG Tab.ER (OWN SUPPLY) PO SCH (08:32)
[2020-06-26] MEDS: ISOSORBIDE MONONITRATE 30 MG PO SCH (08:33)
[2020-06-26] MEDS: Mineral Oil/Petrolatum,White Crm 454 GM Jar TOP SCH ×2 (08:33→19:25)
[2020-06-26] MEDS: Gabapentin 300 MG Cap (OWN SUPPLY) PO SCH (19:23)
[2020-06-26] MEDS: WARFARIN 5 MG PO SCH (19:23)
[2020-06-26] MEDS: Famotidine 20 MG Tab PO SCH (19:24)
[2020-06-26] MEDS: ROPINIROLE 0.5 MG PO SCH (19:24)
[2020-06-26] MEDS: Melatonin 3 MG Tab PO SCH (19:24)
[2020-06-27] MEDS: Omeprazole 20 MG Cap.CR PO SCH (06:58)
[2020-06-27] MEDS: Sertraline 100 MG Tab (OWN SUPPLY) PO SCH (08:57)
[2020-06-27] MEDS: Gabapentin 100 MG Cap (OWN SUPPLY) PO SCH ×2 (08:57→13:31)
[2020-06-27] MEDS: BUSPIRONE 5 MG PO SCH ×3 (08:57→19:28)
[2020-06-27] MEDS: Metoprolol Succinate 25 MG Tab.ER (OWN SUPPLY) PO SCH (08:57)
[2020-06-27] MEDS: Vitamin B Complex Tab PO SCH (08:58)
[2020-06-27] MEDS: ISOSORBIDE MONONITRATE 30 MG PO SCH (08:58)
[2020-06-27] MEDS: Multivitamins with Iron/Calcium/Folic Acid/Minerals Tab PO SCH (08:58)
[2020-06-27] MEDS: Acetaminophen 325 MG Tab PO SCH ×3 (08:58→19:29)
[2020-06-27] MEDS: Ferrous Sulfate 325 MG Tab PO SCH (08:58)
[2020-06-27] MEDS: Furosemide 20 MG Tab (OWN SUPPLY) PO SCH (08:58)
[2020-06-27] MEDS: Mineral Oil/Petrolatum,White Crm 454 GM Jar TOP SCH ×2 (08:59→19:28)
[2020-06-27] MEDS: ROPINIROLE 0.5 MG PO SCH (19:28)
[2020-06-27] MEDS: Gabapentin 300 MG Cap (OWN SUPPLY) PO SCH (19:28)
[2020-06-27] MEDS: WARFARIN 5 MG PO SCH (19:28)
[2020-06-27] MEDS: Melatonin 3 MG Tab PO SCH (19:28)
[2020-06-27] MEDS: Famotidine 20 MG Tab PO SCH (19:29)
[2020-06-28] MEDS: Acetaminophen 325 MG Tab PO SCH ×3 (07:53→20:34)
[2020-06-28] MEDS: Multivitamins with Iron/Calcium/Folic Acid/Minerals Tab PO SCH (07:53)
[2020-06-28] MEDS: Vitamin B Complex Tab PO SCH (07:54)
[2020-06-28] MEDS: Metoprolol Succinate 25 MG Tab.ER (OWN SUPPLY) PO SCH (07:54)
[2020-06-28] MEDS: Omeprazole 20 MG Cap.CR PO SCH (07:54)
[2020-06-28] MEDS: Furosemide 20 MG Tab (OWN SUPPLY) PO SCH (07:55)
[2020-06-28] MEDS: ISOSORBIDE MONONITRATE 30 MG PO SCH (07:55)
[2020-06-28] MEDS: Sertraline 100 MG Tab (OWN SUPPLY) PO SCH (07:55)
[2020-06-28] MEDS: BUSPIRONE 5 MG PO SCH ×3 (07:56→20:35)
[2020-06-28] MEDS: Gabapentin 100 MG Cap (OWN SUPPLY) PO SCH ×2 (07:57→12:38)
[2020-06-28] MEDS: Mineral Oil/Petrolatum,White Crm 454 GM Jar TOP SCH ×2 (07:57→20:36)
[2020-06-28] MEDS: Melatonin 3 MG Tab PO SCH (20:33)
[2020-06-28] MEDS: Famotidine 20 MG Tab PO SCH (20:34)
[2020-06-28] MEDS: WARFARIN 5 MG PO SCH (20:35)
[2020-06-28] MEDS: Gabapentin 300 MG Cap (OWN SUPPLY) PO SCH (20:35)
[2020-06-28] MEDS: ROPINIROLE 0.5 MG PO SCH (20:35)
[2020-06-29] MEDS: Omeprazole 20 MG Cap.CR PO SCH (06:14)
[2020-06-29] MEDS: Gabapentin 100 MG Cap (OWN SUPPLY) PO SCH ×2 (08:59→12:41)
[2020-06-29] MEDS: Sertraline 100 MG Tab (OWN SUPPLY) PO SCH (09:00)
[2020-06-29] MEDS: Ferrous Sulfate 325 MG Tab PO SCH (09:00)
[2020-06-29] MEDS: Multivitamins with Iron/Calcium/Folic Acid/Minerals Tab PO SCH (09:00)
[2020-06-29] MEDS: Metoprolol Succinate 25 MG Tab.ER (OWN SUPPLY) PO SCH (09:00)
[2020-06-29] MEDS: Vitamin B Complex Tab PO SCH (09:00)
[2020-06-29] MEDS: ISOSORBIDE MONONITRATE 30 MG PO SCH (09:00)
[2020-06-29] MEDS: Mineral Oil/Petrolatum,White Crm 454 GM Jar TOP SCH ×2 (09:02→21:23)
[2020-06-29] MEDS: Furosemide 20 MG Tab (OWN SUPPLY) PO SCH (09:02)
[2020-06-29] MEDS: Acetaminophen 325 MG Tab PO SCH ×3 (09:04→19:48)
[2020-06-29] MEDS: BUSPIRONE 5 MG PO SCH ×3 (09:04→19:45)
[2020-06-29] MEDS: Gabapentin 300 MG Cap (OWN SUPPLY) PO SCH (19:46)
[2020-06-29] MEDS: WARFARIN 5 MG PO SCH (19:46)
[2020-06-29] MEDS: ROPINIROLE 0.5 MG PO SCH (19:46)
[2020-06-29] MEDS: Famotidine 20 MG Tab PO SCH (19:47)
[2020-06-29] MEDS: Melatonin 3 MG Tab PO SCH (19:47)
[2020-06-29] MEDS: Miconazole 2% Top Powder 45 GM Container TOP PRN (19:49)
[2020-06-30] MEDS: Omeprazole 20 MG Cap.CR PO SCH (06:38)
[2020-06-30] MEDS: Miconazole 2% Top Powder 45 GM Container TOP PRN ×2 (08:25→19:33)
[2020-06-30] MEDS: Gabapentin 100 MG Cap (OWN SUPPLY) PO SCH ×2 (08:25→12:30)
[2020-06-30] MEDS: Metoprolol Succinate 25 MG Tab.ER (OWN SUPPLY) PO SCH (08:26)
[2020-06-30] MEDS: BUSPIRONE 5 MG PO SCH ×3 (08:26→19:30)
[2020-06-30] MEDS: ISOSORBIDE MONONITRATE 30 MG PO SCH (08:27)
[2020-06-30] MEDS: Furosemide 20 MG Tab (OWN SUPPLY) PO SCH (08:27)
[2020-06-30] MEDS: Sertraline 100 MG Tab (OWN SUPPLY) PO SCH (08:27)
[2020-06-30] MEDS: Acetaminophen 325 MG Tab PO SCH ×3 (08:28→19:32)
[2020-06-30] MEDS: Multivitamins with Iron/Calcium/Folic Acid/Minerals Tab PO SCH (08:28)
[2020-06-30] MEDS: Mineral Oil/Petrolatum,White Crm 454 GM Jar TOP SCH ×2 (08:28→19:32)
[2020-06-30] MEDS: Vitamin B Complex Tab PO SCH (08:28)
[2020-06-30] MEDS: Calcium Carbonate 750 MG Tab.Chew PO PRN (18:36)
[2020-06-30] MEDS: ROPINIROLE 0.5 MG PO SCH (19:30)
[2020-06-30] MEDS: WARFARIN 5 MG PO SCH (19:30)
[2020-06-30] MEDS: Gabapentin 300 MG Cap (OWN SUPPLY) PO SCH (19:30)
[2020-06-30] MEDS: Famotidine 20 MG Tab PO SCH (19:31)
[2020-06-30] MEDS: Melatonin 3 MG Tab PO SCH (19:31)
[2020-07-01] MEDS: Omeprazole 20 MG Cap.CR PO SCH (06:14)
[2020-07-01] MEDS: BUSPIRONE 5 MG PO SCH ×3 (07:53→19:28)
[2020-07-01] MEDS: Sertraline 100 MG Tab (OWN SUPPLY) PO SCH (07:53)
[2020-07-01] MEDS: Furosemide 20 MG Tab (OWN SUPPLY) PO SCH (07:53)
[2020-07-01] MEDS: ISOSORBIDE MONONITRATE 30 MG PO SCH (07:54)
[2020-07-01] MEDS: Metoprolol Succinate 25 MG Tab.ER (OWN SUPPLY) PO SCH (07:54)
[2020-07-01] MEDS: Acetaminophen 325 MG Tab PO SCH ×3 (07:54→19:28)
[2020-07-01] MEDS: Mineral Oil/Petrolatum,White Crm 454 GM Jar TOP SCH ×2 (07:55→19:29)
[2020-07-01] MEDS: Multivitamins with Iron/Calcium/Folic Acid/Minerals Tab PO SCH (07:55)
[2020-07-01] MEDS: Gabapentin 100 MG Cap (OWN SUPPLY) PO SCH ×2 (07:55→13:35)
[2020-07-01] MEDS: Vitamin B Complex Tab PO SCH (07:55)
[2020-07-01] MEDS: Ferrous Sulfate 325 MG Tab PO SCH (07:55)
[2020-07-01] MEDS: Gabapentin 300 MG Cap (OWN SUPPLY) PO SCH (19:27)
[2020-07-01] MEDS: Melatonin 3 MG Tab PO SCH (19:28)
[2020-07-01] MEDS: Famotidine 20 MG Tab PO SCH (19:28)
[2020-07-01] MEDS: WARFARIN 5 MG PO SCH (19:28)
[2020-07-01] MEDS: ROPINIROLE 0.5 MG PO SCH (19:28)
[2020-07-01] MEDS: Miconazole 2% Top Powder 45 GM Container TOP PRN (19:30)
[2020-07-02] MEDS: Omeprazole 20 MG Cap.CR PO SCH (06:30)
[2020-07-02] MEDS: Gabapentin 100 MG Cap (OWN SUPPLY) PO SCH ×2 (08:01→13:07)
[2020-07-02] MEDS: Vitamin B Complex Tab PO SCH (08:02)
[2020-07-02] MEDS: Furosemide 20 MG Tab (OWN SUPPLY) PO SCH (08:02)
[2020-07-02] MEDS: Sertraline 100 MG Tab (OWN SUPPLY) PO SCH (08:02)
[2020-07-02] MEDS: Multivitamins with Iron/Calcium/Folic Acid/Minerals Tab PO SCH (08:02)
[2020-07-02] MEDS: Acetaminophen 325 MG Tab PO SCH ×3 (08:02→19:32)
[2020-07-02] MEDS: ISOSORBIDE MONONITRATE 30 MG PO SCH (08:02)
[2020-07-02] MEDS: BUSPIRONE 5 MG PO SCH ×3 (08:03→19:32)
[2020-07-02] MEDS: Metoprolol Succinate 25 MG Tab.ER (OWN SUPPLY) PO SCH (08:03)
[2020-07-02] MEDS: Mineral Oil/Petrolatum,White Crm 454 GM Jar TOP SCH ×2 (08:03→19:33)
[2020-07-02] MEDS: Miconazole 2% Top Powder 45 GM Container TOP PRN (08:04)
[2020-07-02] MEDS: Calcium Carbonate 750 MG Tab.Chew PO PRN (17:33)
[2020-07-02] MEDS: Melatonin 3 MG Tab PO SCH (19:32)
[2020-07-02] MEDS: Famotidine 20 MG Tab PO SCH (19:32)
[2020-07-02] MEDS: WARFARIN 5 MG PO SCH (19:32)
[2020-07-02] MEDS: Gabapentin 300 MG Cap (OWN SUPPLY) PO SCH (19:32)
[2020-07-02] MEDS: ROPINIROLE 0.5 MG PO SCH (19:32)
[2020-07-03] MEDS: Omeprazole 20 MG Cap.CR PO SCH (06:45)
[2020-07-03] MEDS: Furosemide 20 MG Tab (OWN SUPPLY) PO SCH (07:41)
[2020-07-03] MEDS: Gabapentin 100 MG Cap (OWN SUPPLY) PO SCH ×2 (07:41→12:15)
[2020-07-03] MEDS: Sertraline 100 MG Tab (OWN SUPPLY) PO SCH (07:41)
[2020-07-03] MEDS: BUSPIRONE 5 MG PO SCH ×3 (07:41→19:59)
[2020-07-03] MEDS: ISOSORBIDE MONONITRATE 30 MG PO SCH (07:42)
[2020-07-03] MEDS: Vitamin B Complex Tab PO SCH (07:42)
[2020-07-03] MEDS: Multivitamins with Iron/Calcium/Folic Acid/Minerals Tab PO SCH (07:42)
[2020-07-03] MEDS: Metoprolol Succinate 25 MG Tab.ER (OWN SUPPLY) PO SCH (07:42)
[2020-07-03] MEDS: Mineral Oil/Petrolatum,White Crm 454 GM Jar TOP SCH ×2 (07:43→20:05)
[2020-07-03] MEDS: Ferrous Sulfate 325 MG Tab PO SCH (07:43)
[2020-07-03] MEDS: Miconazole 2% Top Powder 45 GM Container TOP PRN (07:43)
[2020-07-03] MEDS: Acetaminophen 325 MG Tab PO SCH ×3 (07:43→19:58)
[2020-07-03] MEDS: Famotidine 20 MG Tab PO SCH (19:57)
[2020-07-03] MEDS: Melatonin 3 MG Tab PO SCH (19:58)
[2020-07-03] MEDS: ROPINIROLE 0.5 MG PO SCH (19:59)
[2020-07-03] MEDS: WARFARIN 5 MG PO SCH (19:59)
[2020-07-03] MEDS: Gabapentin 300 MG Cap (OWN SUPPLY) PO SCH (20:00)
[2020-07-04] MEDS: Omeprazole 20 MG Cap.CR PO SCH (06:21)
[2020-07-04] MEDS: Miconazole 2% Top Powder 45 GM Container TOP PRN (08:04)
[2020-07-04] MEDS: Acetaminophen 325 MG Tab PO SCH ×3 (08:05→19:23)
[2020-07-04] MEDS: Vitamin B Complex Tab PO SCH (08:05)
[2020-07-04] MEDS: Multivitamins with Iron/Calcium/Folic Acid/Minerals Tab PO SCH (08:05)
[2020-07-04] MEDS: BUSPIRONE 5 MG PO SCH ×3 (08:07→19:22)
[2020-07-04] MEDS: Furosemide 20 MG Tab (OWN SUPPLY) PO SCH (08:07)
[2020-07-04] MEDS: Sertraline 100 MG Tab (OWN SUPPLY) PO SCH (08:08)
[2020-07-04] MEDS: ISOSORBIDE MONONITRATE 30 MG PO SCH (08:08)
[2020-07-04] MEDS: Metoprolol Succinate 25 MG Tab.ER (OWN SUPPLY) PO SCH (08:08)
[2020-07-04] MEDS: Gabapentin 100 MG Cap (OWN SUPPLY) PO SCH ×2 (08:09→12:36)
[2020-07-04] MEDS: Mineral Oil/Petrolatum,White Crm 454 GM Jar TOP SCH ×2 (08:51→19:22)
[2020-07-04] MEDS: Gabapentin 300 MG Cap (OWN SUPPLY) PO SCH (19:22)
[2020-07-04] MEDS: ROPINIROLE 0.5 MG PO SCH (19:22)
[2020-07-04] MEDS: WARFARIN 5 MG PO SCH (19:22)
[2020-07-04] MEDS: Famotidine 20 MG Tab PO SCH (19:22)
[2020-07-04] MEDS: Melatonin 3 MG Tab PO SCH (19:22)
[2020-07-05] MEDS: Omeprazole 20 MG Cap.CR PO SCH (06:41)
[2020-07-05] MEDS: Gabapentin 100 MG Cap (OWN SUPPLY) PO SCH ×2 (07:59→13:08)
[2020-07-05] MEDS: ISOSORBIDE MONONITRATE 30 MG PO SCH (08:00)
[2020-07-05] MEDS: Sertraline 100 MG Tab (OWN SUPPLY) PO SCH (08:00)
[2020-07-05] MEDS: Vitamin B Complex Tab PO SCH (08:00)
[2020-07-05] MEDS: Furosemide 20 MG Tab (OWN SUPPLY) PO SCH (08:00)
[2020-07-05] MEDS: Metoprolol Succinate 25 MG Tab.ER (OWN SUPPLY) PO SCH (08:01)
[2020-07-05] MEDS: Acetaminophen 325 MG Tab PO SCH ×3 (08:01→19:21)
[2020-07-05] MEDS: Multivitamins with Iron/Calcium/Folic Acid/Minerals Tab PO SCH (08:01)
[2020-07-05] MEDS: Mineral Oil/Petrolatum,White Crm 454 GM Jar TOP SCH ×2 (08:01→19:22)
[2020-07-05] MEDS: BUSPIRONE 5 MG PO SCH ×3 (08:01→19:20)
[2020-07-05] MEDS: Ferrous Sulfate 325 MG Tab PO SCH (08:01)
[2020-07-05] MEDS: ROPINIROLE 0.5 MG PO SCH (19:20)
[2020-07-05] MEDS: Famotidine 20 MG Tab PO SCH (19:21)
[2020-07-05] MEDS: Melatonin 3 MG Tab PO SCH (19:21)
[2020-07-05] MEDS: Gabapentin 300 MG Cap (OWN SUPPLY) PO SCH (19:23)
[2020-07-06] MEDS: Omeprazole 20 MG Cap.CR PO SCH (06:21)
[2020-07-06] MEDS: Gabapentin 100 MG Cap (OWN SUPPLY) PO SCH ×2 (08:20→13:18)
[2020-07-06] MEDS: Metoprolol Succinate 25 MG Tab.ER (OWN SUPPLY) PO SCH (08:20)
[2020-07-06] MEDS: ISOSORBIDE MONONITRATE 30 MG PO SCH (08:20)
[2020-07-06] MEDS: Furosemide 20 MG Tab (OWN SUPPLY) PO SCH (08:21)
[2020-07-06] MEDS: Acetaminophen 325 MG Tab PO SCH ×3 (08:21→19:31)
[2020-07-06] MEDS: BUSPIRONE 5 MG PO SCH ×3 (08:21→19:30)
[2020-07-06] MEDS: Sertraline 100 MG Tab (OWN SUPPLY) PO SCH (08:21)
[2020-07-06] MEDS: Mineral Oil/Petrolatum,White Crm 454 GM Jar TOP SCH (08:22)
[2020-07-06] MEDS: Vitamin B Complex Tab PO SCH (08:22)
[2020-07-06] MEDS: Multivitamins with Iron/Calcium/Folic Acid/Minerals Tab PO SCH (08:22)
[2020-07-06] MEDS: ROPINIROLE 0.5 MG PO SCH (19:30)
[2020-07-06] MEDS: Melatonin 3 MG Tab PO SCH (19:31)
[2020-07-06] MEDS: Gabapentin 300 MG Cap (OWN SUPPLY) PO SCH (19:31)
[2020-07-06] MEDS: Famotidine 20 MG Tab PO SCH (19:31)
[2020-07-07] MEDS: Mineral Oil/Petrolatum,White Crm 454 GM Jar TOP SCH ×3 (05:06→19:23)
[2020-07-07] MEDS: Omeprazole 20 MG Cap.CR PO SCH (06:08)
[2020-07-07] MEDS: Gabapentin 100 MG Cap (OWN SUPPLY) PO SCH ×2 (08:21→12:34)
[2020-07-07] MEDS: ISOSORBIDE MONONITRATE 30 MG PO SCH (08:23)
[2020-07-07] MEDS: BUSPIRONE 5 MG PO SCH ×3 (08:23→19:22)
[2020-07-07] MEDS: Furosemide 20 MG Tab (OWN SUPPLY) PO SCH (08:23)
[2020-07-07] MEDS: Sertraline 100 MG Tab (OWN SUPPLY) PO SCH (08:23)
[2020-07-07] MEDS: Metoprolol Succinate 25 MG Tab.ER (OWN SUPPLY) PO SCH (08:24)
[2020-07-07] MEDS: Acetaminophen 325 MG Tab PO SCH ×3 (08:24→19:23)
[2020-07-07] MEDS: Vitamin B Complex Tab PO SCH (08:25)
[2020-07-07] MEDS: Ferrous Sulfate 325 MG Tab PO SCH (08:25)
[2020-07-07] MEDS: Multivitamins with Iron/Calcium/Folic Acid/Minerals Tab PO SCH (08:25)
[2020-07-07] MEDS: Gabapentin 300 MG Cap (OWN SUPPLY) PO SCH (19:22)
[2020-07-07] MEDS: Melatonin 3 MG Tab PO SCH (19:22)
[2020-07-07] MEDS: ROPINIROLE 0.5 MG PO SCH (19:22)
[2020-07-07] MEDS: Famotidine 20 MG Tab PO SCH (19:22)
[2020-07-07] MEDS: WARFARIN 5 MG PO SCH (19:22)
[2020-07-07] MEDS: Miconazole 2% Top Powder 45 GM Container TOP PRN (19:23)
[2020-07-08] MEDS: Omeprazole 20 MG Cap.CR PO SCH (06:33)
[2020-07-08] MEDS: BUSPIRONE 5 MG PO SCH ×3 (08:20→19:33)
[2020-07-08] MEDS: Sertraline 100 MG Tab (OWN SUPPLY) PO SCH (08:20)
[2020-07-08] MEDS: Multivitamins with Iron/Calcium/Folic Acid/Minerals Tab PO SCH (08:20)
[2020-07-08] MEDS: Metoprolol Succinate 25 MG Tab.ER (OWN SUPPLY) PO SCH (08:20)
[2020-07-08] MEDS: Vitamin B Complex Tab PO SCH (08:20)
[2020-07-08] MEDS: Gabapentin 100 MG Cap (OWN SUPPLY) PO SCH ×2 (08:20→13:54)
[2020-07-08] MEDS: Furosemide 20 MG Tab (OWN SUPPLY) PO SCH (08:20)
[2020-07-08] MEDS: ISOSORBIDE MONONITRATE 30 MG PO SCH (08:20)
[2020-07-08] MEDS: Acetaminophen 325 MG Tab PO SCH ×3 (08:20→19:34)
[2020-07-08] MEDS: Mineral Oil/Petrolatum,White Crm 454 GM Jar TOP SCH ×2 (08:22→19:35)
[2020-07-08] MEDS: ROPINIROLE 0.5 MG PO SCH (19:33)
[2020-07-08] MEDS: WARFARIN 5 MG PO SCH (19:33)
[2020-07-08] MEDS: Famotidine 20 MG Tab PO SCH (19:34)
[2020-07-08] MEDS: Gabapentin 300 MG Cap (OWN SUPPLY) PO SCH (19:34)
[2020-07-08] MEDS: Melatonin 3 MG Tab PO SCH (19:34)
[2020-07-09] MEDS: Acetaminophen 500 MG Tab PO PRN (06:19)
[2020-07-09] MEDS: Omeprazole 20 MG Cap.CR PO SCH (06:19)
[2020-07-09] MEDS: Gabapentin 100 MG Cap (OWN SUPPLY) PO SCH ×2 (08:40→15:16)
[2020-07-09] MEDS: Ferrous Sulfate 325 MG Tab PO SCH (08:41)
[2020-07-09] MEDS: Acetaminophen 325 MG Tab PO SCH ×3 (08:41→19:37)
[2020-07-09] MEDS: Furosemide 20 MG Tab (OWN SUPPLY) PO SCH (08:41)
[2020-07-09] MEDS: Vitamin B Complex Tab PO SCH (08:41)
[2020-07-09] MEDS: ISOSORBIDE MONONITRATE 30 MG PO SCH (08:41)
[2020-07-09] MEDS: Metoprolol Succinate 25 MG Tab.ER (OWN SUPPLY) PO SCH (08:41)
[2020-07-09] MEDS: Multivitamins with Iron/Calcium/Folic Acid/Minerals Tab PO SCH (08:41)
[2020-07-09] MEDS: BUSPIRONE 5 MG PO SCH ×3 (08:42→19:37)
[2020-07-09] MEDS: Sertraline 100 MG Tab (OWN SUPPLY) PO SCH (08:42)
[2020-07-09] MEDS: Mineral Oil/Petrolatum,White Crm 454 GM Jar TOP SCH ×2 (08:45→19:40)
[2020-07-09] MEDS: Gabapentin 300 MG Cap (OWN SUPPLY) PO SCH (19:37)
[2020-07-09] MEDS: Melatonin 3 MG Tab PO SCH (19:37)
[2020-07-09] MEDS: Famotidine 20 MG Tab PO SCH (19:37)
[2020-07-09] MEDS: ROPINIROLE 0.5 MG PO SCH (19:37)
[2020-07-09] MEDS: WARFARIN 5 MG PO SCH (19:37)
[2020-07-10] MEDS: Omeprazole 20 MG Cap.CR PO SCH (06:05)
[2020-07-10] MEDS: BUSPIRONE 5 MG PO SCH ×3 (09:43→19:42)
[2020-07-10] MEDS: Sertraline 100 MG Tab (OWN SUPPLY) PO SCH (09:43)
[2020-07-10] MEDS: Metoprolol Succinate 25 MG Tab.ER (OWN SUPPLY) PO SCH (09:44)
[2020-07-10] MEDS: Gabapentin 100 MG Cap (OWN SUPPLY) PO SCH ×2 (09:45→14:30)
[2020-07-10] MEDS: Furosemide 20 MG Tab (OWN SUPPLY) PO SCH (09:45)
[2020-07-10] MEDS: ISOSORBIDE MONONITRATE 30 MG PO SCH (09:46)
[2020-07-10] MEDS: Mineral Oil/Petrolatum,White Crm 454 GM Jar TOP SCH ×2 (09:47→20:59)
[2020-07-10] MEDS: Acetaminophen 325 MG Tab PO SCH ×3 (09:48→19:42)
[2020-07-10] MEDS: Multivitamins with Iron/Calcium/Folic Acid/Minerals Tab PO SCH (09:48)
[2020-07-10] MEDS: Vitamin B Complex Tab PO SCH (09:48)
[2020-07-10] MEDS: Gabapentin 300 MG Cap (OWN SUPPLY) PO SCH (19:42)
[2020-07-10] MEDS: Famotidine 20 MG Tab PO SCH (19:42)
[2020-07-10] MEDS: Melatonin 3 MG Tab PO SCH (19:42)
[2020-07-10] MEDS: ROPINIROLE 0.5 MG PO SCH (19:42)
[2020-07-10] MEDS: WARFARIN 5 MG PO SCH (19:42)
[2020-07-11] MEDS: Omeprazole 20 MG Cap.CR PO SCH (06:15)
[2020-07-11] MEDS: Gabapentin 100 MG Cap (OWN SUPPLY) PO SCH ×2 (09:36→13:51)
[2020-07-11] MEDS: Ferrous Sulfate 325 MG Tab PO SCH (09:37)
[2020-07-11] MEDS: ISOSORBIDE MONONITRATE 30 MG PO SCH (09:37)
[2020-07-11] MEDS: Multivitamins with Iron/Calcium/Folic Acid/Minerals Tab PO SCH (09:37)
[2020-07-11] MEDS: Furosemide 20 MG Tab (OWN SUPPLY) PO SCH (09:37)
[2020-07-11] MEDS: Sertraline 100 MG Tab (OWN SUPPLY) PO SCH (09:37)
[2020-07-11] MEDS: Vitamin B Complex Tab PO SCH (09:37)
[2020-07-11] MEDS: Metoprolol Succinate 25 MG Tab.ER (OWN SUPPLY) PO SCH (09:38)
[2020-07-11] MEDS: BUSPIRONE 5 MG PO SCH ×3 (09:39→20:19)
[2020-07-11] MEDS: Acetaminophen 325 MG Tab PO SCH ×3 (09:39→20:19)
[2020-07-11] MEDS: Mineral Oil/Petrolatum,White Crm 454 GM Jar TOP SCH ×2 (09:41→20:20)
[2020-07-11] MEDS: Gabapentin 300 MG Cap (OWN SUPPLY) PO SCH (20:17)
[2020-07-11] MEDS: Famotidine 20 MG Tab PO SCH (20:18)
[2020-07-11] MEDS: Melatonin 3 MG Tab PO SCH (20:18)
[2020-07-11] MEDS: WARFARIN 5 MG PO SCH (20:19)
[2020-07-11] MEDS: ROPINIROLE 0.5 MG PO SCH (20:19)
[2020-07-12] MEDS: Omeprazole 20 MG Cap.CR PO SCH (06:24)
[2020-07-12] MEDS: Furosemide 20 MG Tab (OWN SUPPLY) PO SCH (09:08)
[2020-07-12] MEDS: BUSPIRONE 5 MG PO SCH ×3 (09:08→19:33)
[2020-07-12] MEDS: Gabapentin 100 MG Cap (OWN SUPPLY) PO SCH ×2 (09:09→12:36)
[2020-07-12] MEDS: ISOSORBIDE MONONITRATE 30 MG PO SCH (09:09)
[2020-07-12] MEDS: Sertraline 100 MG Tab (OWN SUPPLY) PO SCH (09:09)
[2020-07-12] MEDS: Metoprolol Succinate 25 MG Tab.ER (OWN SUPPLY) PO SCH (09:09)
[2020-07-12] MEDS: Vitamin B Complex Tab PO SCH (09:10)
[2020-07-12] MEDS: Mineral Oil/Petrolatum,White Crm 454 GM Jar TOP SCH ×2 (09:10→19:34)
[2020-07-12] MEDS: Acetaminophen 325 MG Tab PO SCH ×3 (09:10→19:33)
[2020-07-12] MEDS: Multivitamins with Iron/Calcium/Folic Acid/Minerals Tab PO SCH (09:10)
[2020-07-12] MEDS: WARFARIN 5 MG PO SCH (19:33)
[2020-07-12] MEDS: ROPINIROLE 0.5 MG PO SCH (19:33)
[2020-07-12] MEDS: Gabapentin 300 MG Cap (OWN SUPPLY) PO SCH (19:33)
[2020-07-12] MEDS: Famotidine 20 MG Tab PO SCH (19:33)
[2020-07-12] MEDS: Melatonin 3 MG Tab PO SCH (19:33)
[2020-07-13] MEDS: Omeprazole 20 MG Cap.CR PO SCH (06:09)
[2020-07-13] MEDS: BUSPIRONE 5 MG PO SCH ×3 (08:15→19:40)
[2020-07-13] MEDS: Gabapentin 100 MG Cap (OWN SUPPLY) PO SCH ×2 (08:15→14:49)
[2020-07-13] MEDS: ISOSORBIDE MONONITRATE 30 MG PO SCH (08:15)
[2020-07-13] MEDS: Acetaminophen 325 MG Tab PO SCH ×3 (08:16→19:41)
[2020-07-13] MEDS: Metoprolol Succinate 25 MG Tab.ER (OWN SUPPLY) PO SCH (08:16)
[2020-07-13] MEDS: Vitamin B Complex Tab PO SCH (08:16)
[2020-07-13] MEDS: Furosemide 20 MG Tab (OWN SUPPLY) PO SCH (08:16)
[2020-07-13] MEDS: Sertraline 100 MG Tab (OWN SUPPLY) PO SCH (08:16)
[2020-07-13] MEDS: Multivitamins with Iron/Calcium/Folic Acid/Minerals Tab PO SCH (08:16)
[2020-07-13] MEDS: Ferrous Sulfate 325 MG Tab PO SCH (08:16)
[2020-07-13] MEDS: Mineral Oil/Petrolatum,White Crm 454 GM Jar TOP SCH ×2 (08:17→19:42)
[2020-07-13] MEDS: WARFARIN 5 MG PO SCH (19:40)
[2020-07-13] MEDS: Famotidine 20 MG Tab PO SCH (19:40)
[2020-07-13] MEDS: ROPINIROLE 0.5 MG PO SCH (19:40)
[2020-07-13] MEDS: Gabapentin 300 MG Cap (OWN SUPPLY) PO SCH (19:41)
[2020-07-13] MEDS: Melatonin 3 MG Tab PO SCH (19:42)
[2020-07-14] MEDS: Omeprazole 20 MG Cap.CR PO SCH (06:21)
[2020-07-14] MEDS: Acetaminophen 325 MG Tab PO SCH ×3 (08:06→20:17)
[2020-07-14] MEDS: Vitamin B Complex Tab PO SCH (08:06)
[2020-07-14] MEDS: BUSPIRONE 5 MG PO SCH ×3 (08:06→20:15)
[2020-07-14] MEDS: Multivitamins with Iron/Calcium/Folic Acid/Minerals Tab PO SCH (08:06)
[2020-07-14] MEDS: Sertraline 100 MG Tab (OWN SUPPLY) PO SCH (08:07)
[2020-07-14] MEDS: ISOSORBIDE MONONITRATE 30 MG PO SCH (08:07)
[2020-07-14] MEDS: Metoprolol Succinate 25 MG Tab.ER (OWN SUPPLY) PO SCH (08:07)
[2020-07-14] MEDS: Furosemide 20 MG Tab (OWN SUPPLY) PO SCH (08:08)
[2020-07-14] MEDS: Mineral Oil/Petrolatum,White Crm 454 GM Jar TOP SCH ×2 (08:08→20:19)
[2020-07-14] MEDS: Gabapentin 100 MG Cap (OWN SUPPLY) PO SCH ×2 (08:08→13:19)
[2020-07-14] MEDS: Gabapentin 300 MG Cap (OWN SUPPLY) PO SCH (20:14)
[2020-07-14] MEDS: ROPINIROLE 0.5 MG PO SCH (20:15)
[2020-07-14] MEDS: Melatonin 3 MG Tab PO SCH (20:16)
[2020-07-14] MEDS: WARFARIN 5 MG PO SCH (20:16)
[2020-07-14] MEDS: Famotidine 20 MG Tab PO SCH (20:17)
[2020-07-15] MEDS: Omeprazole 20 MG Cap.CR PO SCH (06:35)
[2020-07-15] MEDS: Metoprolol Succinate 25 MG Tab.ER (OWN SUPPLY) PO SCH (08:27)
[2020-07-15] MEDS: Gabapentin 100 MG Cap (OWN SUPPLY) PO SCH ×2 (08:27→13:29)
[2020-07-15] MEDS: Furosemide 20 MG Tab (OWN SUPPLY) PO SCH (08:28)
[2020-07-15] MEDS: Vitamin B Complex Tab PO SCH (08:28)
[2020-07-15] MEDS: BUSPIRONE 5 MG PO SCH ×3 (08:28→20:17)
[2020-07-15] MEDS: Multivitamins with Iron/Calcium/Folic Acid/Minerals Tab PO SCH (08:28)
[2020-07-15] MEDS: Sertraline 100 MG Tab (OWN SUPPLY) PO SCH (08:28)
[2020-07-15] MEDS: ISOSORBIDE MONONITRATE 30 MG PO SCH (08:28)
[2020-07-15] MEDS: Ferrous Sulfate 325 MG Tab PO SCH (08:28)
[2020-07-15] MEDS: Acetaminophen 325 MG Tab PO SCH ×3 (08:29→20:15)
[2020-07-15] MEDS: Mineral Oil/Petrolatum,White Crm 454 GM Jar TOP SCH ×2 (10:03→20:15)
[2020-07-15] MEDS: Famotidine 20 MG Tab PO SCH (20:15)
[2020-07-15] MEDS: Melatonin 3 MG Tab PO SCH (20:15)
[2020-07-15] MEDS: Gabapentin 300 MG Cap (OWN SUPPLY) PO SCH (20:16)
[2020-07-15] MEDS: WARFARIN 5 MG PO SCH (20:17)
[2020-07-15] MEDS: ROPINIROLE 0.5 MG PO SCH (20:18)
[2020-07-16] MEDS: Omeprazole 20 MG Cap.CR PO SCH (06:51)
[2020-07-16] MEDS: Acetaminophen 325 MG Tab PO SCH ×3 (08:16→19:50)
[2020-07-16] MEDS: Multivitamins with Iron/Calcium/Folic Acid/Minerals Tab PO SCH (08:16)
[2020-07-16] MEDS: Vitamin B Complex Tab PO SCH (08:16)
[2020-07-16] MEDS: Metoprolol Succinate 25 MG Tab.ER (OWN SUPPLY) PO SCH (08:16)
[2020-07-16] MEDS: Furosemide 20 MG Tab (OWN SUPPLY) PO SCH (08:17)
[2020-07-16] MEDS: ISOSORBIDE MONONITRATE 30 MG PO SCH (08:17)
[2020-07-16] MEDS: Sertraline 100 MG Tab (OWN SUPPLY) PO SCH (08:17)
[2020-07-16] MEDS: Gabapentin 100 MG Cap (OWN SUPPLY) PO SCH ×2 (08:18→13:38)
[2020-07-16] MEDS: Mineral Oil/Petrolatum,White Crm 454 GM Jar TOP SCH ×2 (08:18→19:51)
[2020-07-16] MEDS: BUSPIRONE 5 MG PO SCH ×3 (08:19→19:49)
[2020-07-16] MEDS: ROPINIROLE 0.5 MG PO SCH (19:49)
[2020-07-16] MEDS: Melatonin 3 MG Tab PO SCH (19:50)
[2020-07-16] MEDS: WARFARIN 5 MG PO SCH (19:50)
[2020-07-16] MEDS: Gabapentin 300 MG Cap (OWN SUPPLY) PO SCH (19:50)
[2020-07-16] MEDS: Famotidine 20 MG Tab PO SCH (19:50)
[2020-07-16] MEDS: Calcium Carbonate 750 MG Tab.Chew PO PRN (19:54)
[2020-07-17] MEDS: Acetaminophen 325 MG Tab PO SCH ×3 (08:57→19:43)
[2020-07-17] MEDS: Ferrous Sulfate 325 MG Tab PO SCH (08:57)
[2020-07-17] MEDS: BUSPIRONE 5 MG PO SCH ×3 (08:57→19:42)
[2020-07-17] MEDS: Omeprazole 20 MG Cap.CR PO SCH (08:57)
[2020-07-17] MEDS: Gabapentin 100 MG Cap (OWN SUPPLY) PO SCH ×2 (08:57→12:20)
[2020-07-17] MEDS: Sertraline 100 MG Tab (OWN SUPPLY) PO SCH (08:57)
[2020-07-17] MEDS: Multivitamins with Iron/Calcium/Folic Acid/Minerals Tab PO SCH (08:57)
[2020-07-17] MEDS: Vitamin B Complex Tab PO SCH (08:57)
[2020-07-17] MEDS: ISOSORBIDE MONONITRATE 30 MG PO SCH (08:58)
[2020-07-17] MEDS: Metoprolol Succinate 25 MG Tab.ER (OWN SUPPLY) PO SCH (08:58)
[2020-07-17] MEDS: Furosemide 20 MG Tab (OWN SUPPLY) PO SCH (08:58)
[2020-07-17] MEDS: Mineral Oil/Petrolatum,White Crm 454 GM Jar TOP SCH ×2 (08:58→19:43)
[2020-07-17] MEDS: Famotidine 20 MG Tab PO SCH (19:42)
[2020-07-17] MEDS: WARFARIN 5 MG PO SCH (19:42)
[2020-07-17] MEDS: ROPINIROLE 0.5 MG PO SCH (19:42)
[2020-07-17] MEDS: Gabapentin 300 MG Cap (OWN SUPPLY) PO SCH (19:42)
[2020-07-17] MEDS: Melatonin 3 MG Tab PO SCH (19:43)
[2020-07-18] MEDS: Omeprazole 20 MG Cap.CR PO SCH (06:41)
[2020-07-18] MEDS: Metoprolol Succinate 25 MG Tab.ER (OWN SUPPLY) PO SCH (08:15)
[2020-07-18] MEDS: BUSPIRONE 5 MG PO SCH ×3 (08:15→19:55)
[2020-07-18] MEDS: Furosemide 20 MG Tab (OWN SUPPLY) PO SCH (08:16)
[2020-07-18] MEDS: Vitamin B Complex Tab PO SCH (08:16)
[2020-07-18] MEDS: ISOSORBIDE MONONITRATE 30 MG PO SCH (08:16)
[2020-07-18] MEDS: Multivitamins with Iron/Calcium/Folic Acid/Minerals Tab PO SCH (08:16)
[2020-07-18] MEDS: Sertraline 100 MG Tab (OWN SUPPLY) PO SCH (08:16)
[2020-07-18] MEDS: Gabapentin 100 MG Cap (OWN SUPPLY) PO SCH ×2 (08:17→12:17)
[2020-07-18] MEDS: Acetaminophen 325 MG Tab PO SCH ×3 (08:17→19:56)
[2020-07-18] MEDS: Mineral Oil/Petrolatum,White Crm 454 GM Jar TOP SCH ×2 (08:17→19:56)
[2020-07-18] MEDS: Calcium Carbonate 750 MG Tab.Chew PO PRN (12:18)
[2020-07-18] MEDS: ROPINIROLE 0.5 MG PO SCH (19:55)
[2020-07-18] MEDS: WARFARIN 5 MG PO SCH (19:55)
[2020-07-18] MEDS: Gabapentin 300 MG Cap (OWN SUPPLY) PO SCH (19:55)
[2020-07-18] MEDS: Famotidine 20 MG Tab PO SCH (19:56)
[2020-07-18] MEDS: Melatonin 3 MG Tab PO SCH (19:56)
[2020-07-19] MEDS: Omeprazole 20 MG Cap.CR PO SCH (06:50)
[2020-07-19] MEDS: Ferrous Sulfate 325 MG Tab PO SCH (07:56)
[2020-07-19] MEDS: Acetaminophen 325 MG Tab PO SCH ×3 (07:56→20:39)
[2020-07-19] MEDS: Multivitamins with Iron/Calcium/Folic Acid/Minerals Tab PO SCH (07:56)
[2020-07-19] MEDS: Sertraline 100 MG Tab (OWN SUPPLY) PO SCH (07:57)
[2020-07-19] MEDS: ISOSORBIDE MONONITRATE 30 MG PO SCH (07:57)
[2020-07-19] MEDS: BUSPIRONE 5 MG PO SCH ×3 (07:57→20:38)
[2020-07-19] MEDS: Vitamin B Complex Tab PO SCH (07:57)
[2020-07-19] MEDS: Metoprolol Succinate 25 MG Tab.ER (OWN SUPPLY) PO SCH (07:57)
[2020-07-19] MEDS: Gabapentin 100 MG Cap (OWN SUPPLY) PO SCH ×2 (07:58→13:11)
[2020-07-19] MEDS: Furosemide 20 MG Tab (OWN SUPPLY) PO SCH (07:58)
[2020-07-19] MEDS: Mineral Oil/Petrolatum,White Crm 454 GM Jar TOP SCH ×2 (07:58→20:40)
[2020-07-19] MEDS: Gabapentin 300 MG Cap (OWN SUPPLY) PO SCH (20:37)
[2020-07-19] MEDS: ROPINIROLE 0.5 MG PO SCH (20:38)
[2020-07-19] MEDS: Famotidine 20 MG Tab PO SCH (20:39)
[2020-07-19] MEDS: Melatonin 3 MG Tab PO SCH (20:39)
[2020-07-19] MEDS: WARFARIN 5 MG PO SCH (20:39)
[2020-07-20] MEDS: Furosemide 20 MG Tab (OWN SUPPLY) PO SCH (08:12)
[2020-07-20] MEDS: BUSPIRONE 5 MG PO SCH ×3 (08:12→20:31)
[2020-07-20] MEDS: Acetaminophen 325 MG Tab PO SCH ×3 (08:13→20:32)
[2020-07-20] MEDS: Sertraline 100 MG Tab (OWN SUPPLY) PO SCH (08:13)
[2020-07-20] MEDS: ISOSORBIDE MONONITRATE 30 MG PO SCH (08:14)
[2020-07-20] MEDS: Vitamin B Complex Tab PO SCH (08:14)
[2020-07-20] MEDS: Mineral Oil/Petrolatum,White Crm 454 GM Jar TOP SCH ×2 (08:14→20:33)
[2020-07-20] MEDS: Multivitamins with Iron/Calcium/Folic Acid/Minerals Tab PO SCH (08:14)
[2020-07-20] MEDS: Gabapentin 100 MG Cap (OWN SUPPLY) PO SCH ×2 (08:15→13:18)
[2020-07-20] MEDS: Metoprolol Succinate 25 MG Tab.ER (OWN SUPPLY) PO SCH (08:15)
[2020-07-20] MEDS: Omeprazole 20 MG Cap.CR PO SCH (08:16)
[2020-07-20] MEDS: Gabapentin 300 MG Cap (OWN SUPPLY) PO SCH (20:29)
[2020-07-20] MEDS: ROPINIROLE 0.5 MG PO SCH (20:31)
[2020-07-20] MEDS: WARFARIN 5 MG PO SCH (20:31)
[2020-07-20] MEDS: Famotidine 20 MG Tab PO SCH (20:31)
[2020-07-20] MEDS: Melatonin 3 MG Tab PO SCH (20:32)
[2020-07-21] MEDS: Omeprazole 20 MG Cap.CR PO SCH (06:45)
[2020-07-21] MEDS: BUSPIRONE 5 MG PO SCH ×2 (07:45→09:19)
--- NOTE | 2020-07-21 08:46 | PCM.PN ---
- General Info Date of Service: 07/21/20 Admission Dx/Problem (Free Text): Failure to Thrive, Bilateral LE weakness Subjective Update: Patient has been doing ok. Only complaint is her lack of energy and 'give a darn.' Nursing staff also noting that patient has been more down and less willing to participate in activities and ambulate. She is very down about lack of family contact and poor physical functioning. Right lower joshi wound healed/scabbed over finally. Functional Status: Reports: Ambulating, Other (patient will ambulate minimal distance, must be urged to do so) - Review of Systems General: Reports: No Symptoms HEENT: Reports: No Symptoms Pulmonary: Reports: No Symptoms Cardiovascular: Reports: No Symptoms Gastrointestinal: Reports: No Symptoms Musculoskeletal: Reports: Back Pain, Leg Pain Skin: Reports: No Symptoms Neurological: Reports: Weakness Psychiatric: Reports: Depression - Patient Data Vitals - Most Recent: Last Vital Signs Temp 97.9 F 07/21/20 05:27 Pulse 88 07/20/20 08:15 Resp 16 07/17/20 06:00 BP 141/78 H 07/20/20 08:15 Pulse Ox 98 07/17/20 06:00 Weight - Most Recent: 184 lb 9.6 oz I&O - Last 24 Hours: Intake & Output 07/20/20 07/21/20 07/21/20 22:59 06:59 14:59 Intake Total 120 Balance 120 Lab Results Last 24 Hours: Laboratory Results - last 24 hr 07/21/20 Range/Units 06:38 PT 32.2 H (9.9-12.5) SEC INR 2.9 (2.0-3.5) Med Orders - Current: Current Medications Acetaminophen (Tylenol Extra Strength) 1,000 mg PO BID PRN PRN Reason: Pain/Fever Last Admin: 07/09/20 06:19 Dose: 1,000 mg Documented by: Acetaminophen (Acetaminophen 325 Mg Tab) 650 mg PO TID@0800,1300,1999 [facility] Last Admin: 07/20/20 20:32 Dose: 650 mg Documented by: Buspirone HCl (Buspar) 5 mg PO TID@0800,1300,1999 [facility] Last Admin: 07/20/20 20:31 Dose: 5 mg Documented by: Calcium Carbonate/Glycine (Tums Extra Strength) 750 mg PO TID PRN PRN Reason: Dyspepsia Last Admin: 07/18/20 12:18 Dose: 750 mg Documented by: Docusate Sodium (Colace) 100 mg PO DAILY PRN PRN Reason: Constipation Famotidine (Pepcid) 20 mg PO BEDTIME [facility] Last Admin: 07/20/20 20:31 Dose: 20 mg Documented by: Ferrous Sulfate (Ferrous Sulfate) 325 mg PO Q48H [facility] Last Admin: 07/19/20 07:56 Dose: 325 mg Documented by: Furosemide (Lasix) 20 mg PO DAILY [facility] Last Admin: 07/20/20 08:12 Dose: 20 mg Documented by: Gabapentin (Neurontin) 100 mg PO BID@0800,1300 [facility] Last Admin: 07/20/20 13:18 Dose: 100 mg Documented by: Gabapentin (Neurontin) 300 mg PO BEDTIME [facility] Last Admin: 07/20/20 20:29 Dose: 300 mg Documented by: Isosorbide Mononitrate (Imdur) 30 mg PO DAILY [facility] Last Admin: 07/20/20 08:14 Dose: 30 mg Documented by: Loperamide HCl (Imodium) 2 mg PO Q12H PRN PRN Reason: Diarrhea Last Admin: 04/28/20 08:38 Dose: 2 mg Documented by: Melatonin (Melatonin) 6 mg PO BEDTIME [facility] Last Admin: 07/20/20 20:32 Dose: 6 mg Documented by: Metoprolol Succinate (Toprol Xl) 25 mg PO DAILY [facility] Last Admin: 07/20/20 08:15 Dose: 25 mg Documented by: Miconazole (Desenex 2%) 0 gm TOP BID PRN PRN Reason: RASH UNDER BILATERAL BREASTS Last Admin: 07/07/20 19:23 Dose: 1 applic Documented by: Mineral Oil/White Petrolatum (Minerin Creme) 0 gm TOP BID [facility] Last Admin: 07/20/20 20:33 Dose: 1 applic Documented by: Multivitamins/Minerals (Multivitamins With Iron/Calcium/Folic Acid/Minerals Tab) 1 tab PO DAILY [facility] Last Admin: 07/20/20 08:14 Dose: 1 tab Documented by: Nitroglycerin (Nitrostat) 0.4 mg SL Q5M PRN PRN Reason: Chest Pain Last Admin: 07/02/20 11:11 Dose: 0.4 mg Documented by: Omeprazole (Omeprazole) 20 mg PO DAILY@0700 [facility] Last Admin: 07/21/20 06:45 Dose: 20 mg Documented by: Pharmacy Consult (Consult To Pharmacy) 1 each .XX ASDIRECTED [facility] Polyethylene Glycol (Miralax) 17 gm PO DAILY PRN PRN Reason: Constipation Ropinirole HCl (Requip) 0.5 mg PO BEDTIME [facility] Last Admin: 07/20/20 20:31 Dose: 0.5 mg Documented by: Senna/Docusate Sodium (Senna Plus) 1 tab PO DAILY PRN PRN Reason: Constipation Sertraline HCl (Zoloft) 100 mg PO DAILY [facility] Last Admin: 07/20/20 08:13 Dose: 100 mg Documented by: Vitamin B Complex (Vitamin B Complex Tab) 1 each PO DAILY [facility] Last Admin: 07/20/20 08:14 Dose: 1 each Documented by: Warfarin Sodium (Coumadin) 5 mg PO SuTuThSa@1999 [facility] Last Admin: 07/20/20 20:31 Dose: 5 mg Documented by: Warfarin Sodium (Coumadin) 2.5 mg PO MoWeFr@1999 [facility] Last Admin: 07/19/20 20:39 Dose: 2.5 mg Documented by: Discontinued Medications Buspirone HCl (Buspar) 5 mg PO BID [facility] Last Admin: 06/21/20 08:34 Dose: 5 mg Documented by: Ciprofloxacin (Ciprofloxacin Hcl) 500 mg PO Q24H [facility] Stop: 03/04/20 20:01 Last Admin: 03/04/20 19:24 Dose: 500 mg Documented by: Famotidine (Pepcid) 20 mg PO DAILY [facility] Last Admin: 02/20/20 08:14 Dose: 20 mg Documented by: Furosemide (Lasix) 20 mg PO DAILY@1200 [facility] Stop: 04/18/20 12:01 Last Admin: 04/18/20 12:16 Dose: 20 mg Documented by: Nitrofurantoin Macrocrystals (Macrobid) 100 mg PO BID [facility] Stop: 03/07/20 08:31 Last Admin: 02/29/20 09:00 Dose: 100 mg Documented by: Omeprazole (Omeprazole) 20 mg PO DAILY [facility] Last Admin: 02/20/20 08:14 Dose: 20 mg Documented by: Warfarin Sodium (Coumadin) 5 mg PO WhitneyTuWeFrSa@1999 [facility] Last Admin: 07/04/20 19:22 Dose: 5 mg Documented by: Warfarin Sodium (Coumadin) 2.5 mg PO Th@1999 [facility] Last Admin: 07/01/20 19:28 Dose: 2.5 mg Documented by: - Exam Quality Assessment: Supplemental Oxygen General: Alert, Oriented HEENT: EOMI, Mucous Membr. Moist/[place] Neck: Supple Lungs: Clear to Auscultation, Normal Respiratory Effort Cardiovascular: Regular Rate, Regular Rhythm GI/Abdominal Exam: Normal Bowel Sounds, Soft, Non-Tender Extremities: Normal Inspection, Pedal Edema (trace) Skin: Warm, Dry Wound/Incisions: Healing Well (right Lower leg wound healed over well, scabbed over now with no surrounding erythema) Neurological: No New Focal Deficit Psy/Mental Status: Alert, Depressed - Patient Data Lab Results Last 24 hrs: Laboratory Results - last 24 hr 07/21/20 Range/Units 06:38 PT 32.2 H (9.9-12.5) SEC INR 2.9 (2.0-3.5) Result Diagrams: 04/19/20 06:53 Sepsis Event Note - Evaluation Sepsis Screening Result: No Definite Risk - Focused Exam Vital Signs: Vital Signs Temp 07/21/20 05:27 97.9 F - Problem List & Annotations (1) Need for assistance with personal care SNOMED Code(s): 19455628291880025 Code(s): Z74.1 - NEED FOR ASSISTANCE WITH PERSONAL CARE Status: Acute Current Visit: No (2) Depression SNOMED Code(s): 68221493 Code(s): F32.9 - MAJOR DEPRESSIVE DISORDER, SINGLE EPISODE, UNSPECIFIED Status: Chronic Current Visit: No (3) Anxiety SNOMED Code(s): 96451629 Code(s): F41.9 - ANXIETY DISORDER, UNSPECIFIED Status: Chronic Current Visit: No (4) CKD (chronic kidney disease) SNOMED Code(s): 159478454 Code(s): N18.9 - CHRONIC KIDNEY DISEASE, UNSPECIFIED Status: Chronic Current Visit: No (5) COPD (chronic obstructive pulmonary disease) SNOMED Code(s): 15558228 Code(s): J44.9 - CHRONIC OBSTRUCTIVE PULMONARY DISEASE, UNSPECIFIED Status: Chronic Current Visit: No (6) Diastolic HF (heart failure) SNOMED Code(s): 735786543 Code(s): I50.30 - UNSPECIFIED DIASTOLIC (CONGESTIVE) HEART FAILURE Status: Chronic Current Visit: No (7) GERD (gastroesophageal reflux disease) SNOMED Code(s): 001466567 Code(s): K21.9 - GASTRO-ESOPHAGEAL REFLUX DISEASE WITHOUT ESOPHAGITIS Status: Chronic Current Visit: No (8) Hypertension SNOMED Code(s): 29040648 Code(s): I10 - ESSENTIAL (PRIMARY) HYPERTENSION Status: Chronic Current Visit: No - Problem List Review Problem List Initiated/Reviewed/Updated: Yes - My Orders Last 24 Hours: My Active Orders 07/21/20 13:00 busPIRone [Buspar] 7.5 mg PO TID@0800,1300,2000 08/02/20 07:00 INR,PT,PROTHROMBIN TIME [COAG] Q28D 08/30/20 07:00 INR,PT,PROTHROMBIN TIME [COAG] Q28D 09/27/20 07:00 INR,PT,PROTHROMBIN TIME [COAG] Q28D 10/25/20 07:00 INR,PT,PROTHROMBIN TIME [COAG] Q28D - Assessment Assessment:: Failure to Thrive Chronic Leg Weakness - Patient is long-term swing bed stay for assistance with ADLs due to the above Plan: - Continue regular daily care is as previously prescribed - Continue physical therapy as previously prescribed - Encouraged patient to leave room 3 times a day; self-propel in the wheelchair (walk-along) Leg wound Diastolic CHF - Healed over now Plan: - Staff can continue applying lotion - Discussed use of compression stockings/DARBY, patient refuses - Discussed possibly referral to wound clinic, patient defers Depression - Patients continues to exhibit depressive symptoms Plan: - Increase Buspar to 7.5mg daily - Continue Zoloft at 100mg daily - Adding vitamin D as well for possible seasonal component to worsening depression - Encouraged increased social interactions on the unit, patient instructed to leave room 3x a day even if this entails her 'walking' the unit in a wheelchair - Reassess next month Breast Cancer, s/p lumpectomy - plan for follow-up with oncology as previously planned (repeat breast exam every 6 months, f/u visit with one in Dec 2020 with mammo) HTN - continue metoprolol 25mg daily GERD - continue omeprazole 20mg daily, prn Pepcid 20mg, prn Tums Anxiety/Depression - continue Zoloft 100mg daily, BuSpar 5mg TID Angina - continue Imdur 30mg daily, prn Nitro Restless legs - Requip 0.5mg at bedtime Chronic pain - Gabapentin 100mg am and noon, 300mg at supper Hx DVT - continue Warfarin, serial INR per pharmacy Peripheral edema - continue Lasix 20mg daily Constipation - continue Colace 100mg dialy, prn miralax Fe-def anemia - continue iron 325mg e/o day Insomnia - continue melatonin 3mg at bedtime Chronic respiratory failure - continue supplemental O2 Fungal rash - continue prn miconazole
[2020-07-21] MEDS: Ferrous Sulfate 325 MG Tab PO SCH (09:14)
[2020-07-21] MEDS: Vitamin B Complex Tab PO SCH (09:14)
[2020-07-21] MEDS: Multivitamins with Iron/Calcium/Folic Acid/Minerals Tab PO SCH (09:14)
[2020-07-21] MEDS: Gabapentin 100 MG Cap (OWN SUPPLY) PO SCH ×2 (09:15→13:07)
[2020-07-21] MEDS: Acetaminophen 325 MG Tab PO SCH ×3 (09:15→20:08)
[2020-07-21] MEDS: Metoprolol Succinate 25 MG Tab.ER (OWN SUPPLY) PO SCH (09:16)
[2020-07-21] MEDS: Sertraline 100 MG Tab (OWN SUPPLY) PO SCH (09:17)
[2020-07-21] MEDS: Furosemide 20 MG Tab (OWN SUPPLY) PO SCH (09:17)
[2020-07-21] MEDS: ISOSORBIDE MONONITRATE 30 MG PO SCH (09:17)
[2020-07-21] MEDS: Mineral Oil/Petrolatum,White Crm 454 GM Jar TOP SCH ×2 (09:18→20:11)
[2020-07-21] MEDS: Melatonin 3 MG Tab PO SCH (20:07)
[2020-07-21] MEDS: Famotidine 20 MG Tab PO SCH (20:08)
[2020-07-21] MEDS: ROPINIROLE 0.5 MG PO SCH (20:09)
[2020-07-21] MEDS: WARFARIN 5 MG PO SCH (20:10)
[2020-07-21] MEDS: Gabapentin 300 MG Cap (OWN SUPPLY) PO SCH (20:10)
[2020-07-22] MEDS: Omeprazole 20 MG Cap.CR PO SCH (06:06)
[2020-07-22] MEDS: Multivitamins with Iron/Calcium/Folic Acid/Minerals Tab PO SCH (09:57)
[2020-07-22] MEDS: Acetaminophen 325 MG Tab PO SCH ×3 (09:57→19:54)
[2020-07-22] MEDS: Sertraline 100 MG Tab (OWN SUPPLY) PO SCH (09:58)
[2020-07-22] MEDS: Vitamin B Complex Tab PO SCH (09:58)
[2020-07-22] MEDS: Furosemide 20 MG Tab (OWN SUPPLY) PO SCH (09:59)
[2020-07-22] MEDS: Metoprolol Succinate 25 MG Tab.ER (OWN SUPPLY) PO SCH (10:00)
[2020-07-22] MEDS: Gabapentin 100 MG Cap (OWN SUPPLY) PO SCH ×2 (10:00→15:18)
[2020-07-22] MEDS: Mineral Oil/Petrolatum,White Crm 454 GM Jar TOP SCH ×2 (10:01→19:56)
[2020-07-22] MEDS: ISOSORBIDE MONONITRATE 30 MG PO SCH (10:01)
[2020-07-22] MEDS: Cholecalciferol (Vitamin D3) 10 MCG Tab PO SCH (10:06)
[2020-07-22] MEDS: Calcium Carbonate 750 MG Tab.Chew PO PRN (15:19)
[2020-07-22] MEDS: Gabapentin 300 MG Cap (OWN SUPPLY) PO SCH (19:53)
[2020-07-22] MEDS: WARFARIN 5 MG PO SCH (19:54)
[2020-07-22] MEDS: ROPINIROLE 0.5 MG PO SCH (19:54)
[2020-07-22] MEDS: Melatonin 3 MG Tab PO SCH (19:54)
[2020-07-22] MEDS: Famotidine 20 MG Tab PO SCH (19:54)
[2020-07-23] MEDS: Omeprazole 20 MG Cap.CR PO SCH (06:48)
[2020-07-23] MEDS: Metoprolol Succinate 25 MG Tab.ER (OWN SUPPLY) PO SCH (08:09)
[2020-07-23] MEDS: Furosemide 20 MG Tab (OWN SUPPLY) PO SCH (08:09)
[2020-07-23] MEDS: Acetaminophen 325 MG Tab PO SCH ×3 (08:10→19:36)
[2020-07-23] MEDS: Sertraline 100 MG Tab (OWN SUPPLY) PO SCH (08:10)
[2020-07-23] MEDS: Gabapentin 100 MG Cap (OWN SUPPLY) PO SCH ×2 (08:10→13:47)
[2020-07-23] MEDS: ISOSORBIDE MONONITRATE 30 MG PO SCH (08:10)
[2020-07-23] MEDS: Cholecalciferol (Vitamin D3) 10 MCG Tab PO SCH (08:10)
[2020-07-23] MEDS: Vitamin B Complex Tab PO SCH (08:11)
[2020-07-23] MEDS: Multivitamins with Iron/Calcium/Folic Acid/Minerals Tab PO SCH (08:11)
[2020-07-23] MEDS: Mineral Oil/Petrolatum,White Crm 454 GM Jar TOP SCH ×2 (08:11→19:36)
[2020-07-23] MEDS: Ferrous Sulfate 325 MG Tab PO SCH (08:11)
[2020-07-23] MEDS: WARFARIN 5 MG PO SCH (19:35)
[2020-07-23] MEDS: Melatonin 3 MG Tab PO SCH (19:35)
[2020-07-23] MEDS: Famotidine 20 MG Tab PO SCH (19:35)
[2020-07-23] MEDS: Gabapentin 300 MG Cap (OWN SUPPLY) PO SCH (19:35)
[2020-07-23] MEDS: ROPINIROLE 0.5 MG PO SCH (19:35)
[2020-07-24] MEDS: Omeprazole 20 MG Cap.CR PO SCH (06:32)
[2020-07-24] MEDS: Metoprolol Succinate 25 MG Tab.ER (OWN SUPPLY) PO SCH (08:31)
[2020-07-24] MEDS: Gabapentin 100 MG Cap (OWN SUPPLY) PO SCH ×2 (08:31→13:24)
[2020-07-24] MEDS: Cholecalciferol (Vitamin D3) 10 MCG Tab PO SCH (08:32)
[2020-07-24] MEDS: Furosemide 20 MG Tab (OWN SUPPLY) PO SCH (08:32)
[2020-07-24] MEDS: Acetaminophen 325 MG Tab PO SCH ×3 (08:32→20:14)
[2020-07-24] MEDS: Sertraline 100 MG Tab (OWN SUPPLY) PO SCH (08:32)
[2020-07-24] MEDS: Vitamin B Complex Tab PO SCH (08:32)
[2020-07-24] MEDS: ISOSORBIDE MONONITRATE 30 MG PO SCH (08:32)
[2020-07-24] MEDS: Multivitamins with Iron/Calcium/Folic Acid/Minerals Tab PO SCH (08:32)
[2020-07-24] MEDS: Mineral Oil/Petrolatum,White Crm 454 GM Jar TOP SCH ×2 (08:33→20:15)
[2020-07-24] MEDS: Gabapentin 300 MG Cap (OWN SUPPLY) PO SCH (20:12)
[2020-07-24] MEDS: ROPINIROLE 0.5 MG PO SCH (20:13)
[2020-07-24] MEDS: WARFARIN 5 MG PO SCH (20:13)
[2020-07-24] MEDS: Famotidine 20 MG Tab PO SCH (20:14)
[2020-07-24] MEDS: Melatonin 3 MG Tab PO SCH (20:15)
[2020-07-25] MEDS: Omeprazole 20 MG Cap.CR PO SCH (06:20)
[2020-07-25] MEDS: Mineral Oil/Petrolatum,White Crm 454 GM Jar TOP SCH ×2 (08:23→19:57)
[2020-07-25] MEDS: Gabapentin 100 MG Cap (OWN SUPPLY) PO SCH ×2 (08:24→13:20)
[2020-07-25] MEDS: Metoprolol Succinate 25 MG Tab.ER (OWN SUPPLY) PO SCH (08:24)
[2020-07-25] MEDS: Furosemide 20 MG Tab (OWN SUPPLY) PO SCH (08:24)
[2020-07-25] MEDS: ISOSORBIDE MONONITRATE 30 MG PO SCH (08:24)
[2020-07-25] MEDS: Sertraline 100 MG Tab (OWN SUPPLY) PO SCH (08:24)
[2020-07-25] MEDS: Vitamin B Complex Tab PO SCH (08:25)
[2020-07-25] MEDS: Acetaminophen 325 MG Tab PO SCH ×3 (08:25→19:56)
[2020-07-25] MEDS: Cholecalciferol (Vitamin D3) 10 MCG Tab PO SCH (08:25)
[2020-07-25] MEDS: Ferrous Sulfate 325 MG Tab PO SCH (08:25)
[2020-07-25] MEDS: Multivitamins with Iron/Calcium/Folic Acid/Minerals Tab PO SCH (08:25)
[2020-07-25] MEDS: Gabapentin 300 MG Cap (OWN SUPPLY) PO SCH (19:55)
[2020-07-25] MEDS: Famotidine 20 MG Tab PO SCH (19:56)
[2020-07-25] MEDS: Melatonin 3 MG Tab PO SCH (19:56)
[2020-07-25] MEDS: ROPINIROLE 0.5 MG PO SCH (19:57)
[2020-07-25] MEDS: WARFARIN 5 MG PO SCH (19:57)
[2020-07-26] MEDS: Omeprazole 20 MG Cap.CR PO SCH (06:05)
[2020-07-26] MEDS: ISOSORBIDE MONONITRATE 30 MG PO SCH (08:00)
[2020-07-26] MEDS: Sertraline 100 MG Tab (OWN SUPPLY) PO SCH (08:01)
[2020-07-26] MEDS: Furosemide 20 MG Tab (OWN SUPPLY) PO SCH (08:01)
[2020-07-26] MEDS: Metoprolol Succinate 25 MG Tab.ER (OWN SUPPLY) PO SCH (08:01)
[2020-07-26] MEDS: Acetaminophen 325 MG Tab PO SCH ×3 (08:01→20:16)
[2020-07-26] MEDS: Vitamin B Complex Tab PO SCH (08:02)
[2020-07-26] MEDS: Mineral Oil/Petrolatum,White Crm 454 GM Jar TOP SCH ×2 (08:03→20:17)
[2020-07-26] MEDS: Gabapentin 100 MG Cap (OWN SUPPLY) PO SCH ×2 (08:03→14:03)
[2020-07-26] MEDS: Multivitamins with Iron/Calcium/Folic Acid/Minerals Tab PO SCH (08:03)
[2020-07-26] MEDS: Cholecalciferol (Vitamin D3) 10 MCG Tab PO SCH (08:03)
[2020-07-26] MEDS: WARFARIN 5 MG PO SCH (20:15)
[2020-07-26] MEDS: ROPINIROLE 0.5 MG PO SCH (20:15)
[2020-07-26] MEDS: Gabapentin 300 MG Cap (OWN SUPPLY) PO SCH (20:15)
[2020-07-26] MEDS: Famotidine 20 MG Tab PO SCH (20:16)
[2020-07-26] MEDS: Melatonin 3 MG Tab PO SCH (20:16)
[2020-07-27] MEDS: Omeprazole 20 MG Cap.CR PO SCH (06:00)
[2020-07-27] MEDS: Acetaminophen 325 MG Tab PO SCH ×3 (07:45→19:47)
[2020-07-27] MEDS: Cholecalciferol (Vitamin D3) 10 MCG Tab PO SCH (07:46)
[2020-07-27] MEDS: Multivitamins with Iron/Calcium/Folic Acid/Minerals Tab PO SCH (07:47)
[2020-07-27] MEDS: Vitamin B Complex Tab PO SCH (07:47)
[2020-07-27] MEDS: Gabapentin 100 MG Cap (OWN SUPPLY) PO SCH ×2 (07:47→12:36)
[2020-07-27] MEDS: Ferrous Sulfate 325 MG Tab PO SCH (07:47)
[2020-07-27] MEDS: Furosemide 20 MG Tab (OWN SUPPLY) PO SCH (07:48)
[2020-07-27] MEDS: Sertraline 100 MG Tab (OWN SUPPLY) PO SCH (07:48)
[2020-07-27] MEDS: ISOSORBIDE MONONITRATE 30 MG PO SCH (07:53)
[2020-07-27] MEDS: Metoprolol Succinate 25 MG Tab.ER (OWN SUPPLY) PO SCH (07:54)
[2020-07-27] MEDS: Mineral Oil/Petrolatum,White Crm 454 GM Jar TOP SCH ×2 (12:35→19:48)
[2020-07-27] MEDS: Calcium Carbonate 750 MG Tab.Chew PO PRN (12:36)
[2020-07-27] MEDS: Gabapentin 300 MG Cap (OWN SUPPLY) PO SCH (19:46)
[2020-07-27] MEDS: WARFARIN 5 MG PO SCH (19:47)
[2020-07-27] MEDS: ROPINIROLE 0.5 MG PO SCH (19:47)
[2020-07-27] MEDS: Famotidine 20 MG Tab PO SCH (19:47)
[2020-07-27] MEDS: Melatonin 3 MG Tab PO SCH (19:47)
[2020-07-28] MEDS: Acetaminophen 500 MG Tab PO PRN (04:45)
[2020-07-28] MEDS: Omeprazole 20 MG Cap.CR PO SCH (06:23)
[2020-07-28] MEDS: Gabapentin 100 MG Cap (OWN SUPPLY) PO SCH ×2 (08:23→14:13)
[2020-07-28] MEDS: Acetaminophen 325 MG Tab PO SCH ×3 (08:23→19:38)
[2020-07-28] MEDS: Multivitamins with Iron/Calcium/Folic Acid/Minerals Tab PO SCH (08:24)
[2020-07-28] MEDS: Cholecalciferol (Vitamin D3) 10 MCG Tab PO SCH (08:24)
[2020-07-28] MEDS: Vitamin B Complex Tab PO SCH (08:24)
[2020-07-28] MEDS: Mineral Oil/Petrolatum,White Crm 454 GM Jar TOP SCH ×2 (08:24→19:38)
[2020-07-28] MEDS: ISOSORBIDE MONONITRATE 30 MG PO SCH (08:25)
[2020-07-28] MEDS: Metoprolol Succinate 25 MG Tab.ER (OWN SUPPLY) PO SCH (08:25)
[2020-07-28] MEDS: Sertraline 100 MG Tab (OWN SUPPLY) PO SCH (08:26)
[2020-07-28] MEDS: Furosemide 20 MG Tab (OWN SUPPLY) PO SCH (08:29)
[2020-07-28] MEDS: Calcium Carbonate 750 MG Tab.Chew PO PRN (08:52)
[2020-07-28] MEDS: WARFARIN 5 MG PO SCH (19:37)
[2020-07-28] MEDS: Famotidine 20 MG Tab PO SCH (19:37)
[2020-07-28] MEDS: ROPINIROLE 0.5 MG PO SCH (19:37)
[2020-07-28] MEDS: Melatonin 3 MG Tab PO SCH (19:37)
[2020-07-28] MEDS: Gabapentin 300 MG Cap (OWN SUPPLY) PO SCH (19:39)
[2020-07-29] MEDS: Omeprazole 20 MG Cap.CR PO SCH (06:19)
[2020-07-29] MEDS: Acetaminophen 325 MG Tab PO SCH ×3 (08:48→19:36)
[2020-07-29] MEDS: Cholecalciferol (Vitamin D3) 10 MCG Tab PO SCH (08:49)
[2020-07-29] MEDS: Multivitamins with Iron/Calcium/Folic Acid/Minerals Tab PO SCH (08:49)
[2020-07-29] MEDS: Vitamin B Complex Tab PO SCH (08:49)
[2020-07-29] MEDS: ISOSORBIDE MONONITRATE 30 MG PO SCH (08:50)
[2020-07-29] MEDS: Ferrous Sulfate 325 MG Tab PO SCH (08:50)
[2020-07-29] MEDS: Loperamide 2 MG Cap PO PRN (08:50)
[2020-07-29] MEDS: Metoprolol Succinate 25 MG Tab.ER (OWN SUPPLY) PO SCH (08:50)
[2020-07-29] MEDS: Furosemide 20 MG Tab (OWN SUPPLY) PO SCH (08:52)
[2020-07-29] MEDS: Sertraline 100 MG Tab (OWN SUPPLY) PO SCH (08:53)
[2020-07-29] MEDS: Gabapentin 100 MG Cap (OWN SUPPLY) PO SCH ×2 (08:53→13:24)
[2020-07-29] MEDS: Mineral Oil/Petrolatum,White Crm 454 GM Jar TOP SCH ×2 (08:54→19:38)
[2020-07-29] MEDS: Calcium Carbonate 750 MG Tab.Chew PO PRN ×2 (08:57→19:36)
[2020-07-29] MEDS: Melatonin 3 MG Tab PO SCH (19:36)
[2020-07-29] MEDS: Famotidine 20 MG Tab PO SCH (19:36)
[2020-07-29] MEDS: WARFARIN 5 MG PO SCH (19:38)
[2020-07-29] MEDS: Gabapentin 300 MG Cap (OWN SUPPLY) PO SCH (19:38)
[2020-07-29] MEDS: ROPINIROLE 0.5 MG PO SCH (19:38)
[2020-07-30] MEDS: Acetaminophen 500 MG Tab PO PRN (00:50)
[2020-07-30] MEDS: Omeprazole 20 MG Cap.CR PO SCH (06:17)
[2020-07-30] MEDS: Mineral Oil/Petrolatum,White Crm 454 GM Jar TOP SCH ×2 (08:56→20:45)
[2020-07-30] MEDS: Metoprolol Succinate 25 MG Tab.ER (OWN SUPPLY) PO SCH (08:56)
[2020-07-30] MEDS: Sertraline 100 MG Tab (OWN SUPPLY) PO SCH (08:56)
[2020-07-30] MEDS: Furosemide 20 MG Tab (OWN SUPPLY) PO SCH (08:56)
[2020-07-30] MEDS: Gabapentin 100 MG Cap (OWN SUPPLY) PO SCH ×2 (08:57→13:40)
[2020-07-30] MEDS: ISOSORBIDE MONONITRATE 30 MG PO SCH (08:57)
[2020-07-30] MEDS: Calcium Carbonate 750 MG Tab.Chew PO PRN (08:57)
[2020-07-30] MEDS: Cholecalciferol (Vitamin D3) 10 MCG Tab PO SCH (09:00)
[2020-07-30] MEDS: Multivitamins with Iron/Calcium/Folic Acid/Minerals Tab PO SCH (09:01)
[2020-07-30] MEDS: Vitamin B Complex Tab PO SCH (09:01)
[2020-07-30] MEDS: Acetaminophen 325 MG Tab PO SCH ×3 (09:01→20:43)
[2020-07-30 16:08] LABS: ANION GAP 5.9 mmol/L (5-15)
--- NOTE | 2020-07-30 16:53 | PCM.SN.2 ---
- Free Text/Narrative Note: Informed by nursing staff this afternoon that Gert was acting more confused. Does have history of UTIs. UA did demonstrate UTI. Will treat with Macrobid 100mg BID for 5 days. Patient also has mild elevation in Na and Cr. Has history of CHF and I was informed by nursing staff that she does not respond well (quick overload) with IVF. Will have nursing push PO fluids for the next 24 hours. Repeat BMP in the am. If worsening/not improving may need to give small bolus (500mL slowly) to help. Weekend provider updated/notified.
[2020-07-30] MEDS: Gabapentin 300 MG Cap (OWN SUPPLY) PO SCH (20:40)
[2020-07-30] MEDS: WARFARIN 5 MG PO SCH (20:42)
[2020-07-30] MEDS: Famotidine 20 MG Tab PO SCH (20:42)
[2020-07-30] MEDS: ROPINIROLE 0.5 MG PO SCH (20:42)
[2020-07-30] MEDS: Nitrofurantoin Monohydrate/Macrocrystalline 100 MG Cap PO SCH (20:43)
[2020-07-30] MEDS: Melatonin 3 MG Tab PO SCH (20:45)
[2020-07-31] MEDS: Omeprazole 20 MG Cap.CR PO SCH (06:08)
[2020-07-31] MEDS: Mineral Oil/Petrolatum,White Crm 454 GM Jar TOP SCH ×2 (09:28→19:58)
[2020-07-31] MEDS: Calcium Carbonate 750 MG Tab.Chew PO PRN (09:29)
[2020-07-31] MEDS: Cholecalciferol (Vitamin D3) 10 MCG Tab PO SCH (09:29)
[2020-07-31] MEDS: Nitrofurantoin Monohydrate/Macrocrystalline 100 MG Cap PO SCH ×2 (09:30→19:56)
[2020-07-31] MEDS: Vitamin B Complex Tab PO SCH (09:30)
[2020-07-31] MEDS: Multivitamins with Iron/Calcium/Folic Acid/Minerals Tab PO SCH (09:30)
[2020-07-31] MEDS: Acetaminophen 325 MG Tab PO SCH ×3 (09:30→19:56)
[2020-07-31] MEDS: Ferrous Sulfate 325 MG Tab PO SCH (09:30)
[2020-07-31] MEDS: Gabapentin 100 MG Cap (OWN SUPPLY) PO SCH ×2 (09:31→14:38)
[2020-07-31] MEDS: Metoprolol Succinate 25 MG Tab.ER (OWN SUPPLY) PO SCH (09:32)
[2020-07-31] MEDS: Furosemide 20 MG Tab (OWN SUPPLY) PO SCH (09:32)
[2020-07-31] MEDS: Sertraline 100 MG Tab (OWN SUPPLY) PO SCH (09:32)
[2020-07-31] MEDS: ISOSORBIDE MONONITRATE 30 MG PO SCH (09:37)
--- NOTE | 2020-07-31 13:15 | PCM.SN.2 ---
- Free Text/Narrative Note: AM labs reviewed showing hypernatremia. Nursing staff states patient has a hard time drinking water, "it makes her gag." She has been getting Gatorade, but cautioned nursing staff about the sodium content in Gatorade. Recommend a 500cc very blow bolus of D5 to help drive down sodium and rehydrate patient. Nursing staff states they will check with patient as she apparently refused previous IVF. Recheck labs tomorrow. Monitor fluid status closely.
[2020-07-31] MEDS: Gabapentin 300 MG Cap (OWN SUPPLY) PO SCH (19:54)
[2020-07-31] MEDS: WARFARIN 5 MG PO SCH (19:55)
[2020-07-31] MEDS: ROPINIROLE 0.5 MG PO SCH (19:55)
[2020-07-31] MEDS: Famotidine 20 MG Tab PO SCH (19:56)
[2020-07-31] MEDS: Melatonin 3 MG Tab PO SCH (19:56)
[2020-08-01] MEDS: Omeprazole 20 MG Cap.CR PO SCH (06:09)
[2020-08-01] MEDS ORDERED: Lactobacillus Rhamnosus GG (Probiotic) Cap PO SCH (08:00)
[2020-08-01 08:18] LABS: ANION GAP 4.1 mmol/L (5-15)
[2020-08-01] MEDS: Gabapentin 100 MG Cap (OWN SUPPLY) PO SCH ×2 (08:29→15:05)
[2020-08-01] MEDS: Furosemide 20 MG Tab (OWN SUPPLY) PO SCH (08:30)
[2020-08-01] MEDS: Metoprolol Succinate 25 MG Tab.ER (OWN SUPPLY) PO SCH (08:30)
[2020-08-01] MEDS: Sertraline 100 MG Tab (OWN SUPPLY) PO SCH (08:32)
[2020-08-01] MEDS: Cholecalciferol (Vitamin D3) 10 MCG Tab PO SCH (08:32)
[2020-08-01] MEDS: ISOSORBIDE MONONITRATE 30 MG PO SCH (08:32)
[2020-08-01] MEDS: Vitamin B Complex Tab PO SCH (08:32)
[2020-08-01] MEDS: Acetaminophen 325 MG Tab PO SCH ×3 (08:32→20:16)
[2020-08-01] MEDS: Multivitamins with Iron/Calcium/Folic Acid/Minerals Tab PO SCH (08:33)
[2020-08-01] MEDS: Calcium Carbonate 750 MG Tab.Chew PO PRN (08:35)
[2020-08-01] MEDS: Mineral Oil/Petrolatum,White Crm 454 GM Jar TOP SCH ×2 (08:35→20:17)
[2020-08-01] MEDS: Nitrofurantoin Monohydrate/Macrocrystalline 100 MG Cap PO SCH ×2 (08:36→20:16)
--- NOTE | 2020-08-01 09:53 | PCM.SN.2 ---
- Free Text/Narrative Note: Labs reviewed. Sodium trending down. Patient refuses IVF. Discussed with nursing staff to avoid foods/beverages containing high amounts of sodium. Noted elevated WBC; could be reactionary versus true infection given known UTI. Continue to monitor.
[2020-08-01] MEDS: Gabapentin 300 MG Cap (OWN SUPPLY) PO SCH (20:11)
[2020-08-01] MEDS: WARFARIN 5 MG PO SCH (20:14)
[2020-08-01] MEDS: ROPINIROLE 0.5 MG PO SCH (20:14)
[2020-08-01] MEDS: Melatonin 3 MG Tab PO SCH (20:15)
[2020-08-01] MEDS: Famotidine 20 MG Tab PO SCH (20:15)
[2020-08-02] MEDS: Omeprazole 20 MG Cap.CR PO SCH (06:17)
[2020-08-02] MEDS: Lactobacillus Rhamnosus GG (Probiotic) Cap PO SCH (06:17)
[2020-08-02 07:05] LABS: ANION GAP 4.6 mmol/L (5-15)
[2020-08-02] MEDS: ISOSORBIDE MONONITRATE 30 MG PO SCH (08:01)
[2020-08-02] MEDS: Sertraline 100 MG Tab (OWN SUPPLY) PO SCH (08:01)
[2020-08-02] MEDS: Furosemide 20 MG Tab (OWN SUPPLY) PO SCH (08:01)
[2020-08-02] MEDS: Metoprolol Succinate 25 MG Tab.ER (OWN SUPPLY) PO SCH (08:02)
[2020-08-02] MEDS: Gabapentin 100 MG Cap (OWN SUPPLY) PO SCH ×2 (08:03→12:33)
[2020-08-02] MEDS: Vitamin B Complex Tab PO SCH (08:03)
[2020-08-02] MEDS: Cholecalciferol (Vitamin D3) 10 MCG Tab PO SCH (08:03)
[2020-08-02] MEDS: Acetaminophen 325 MG Tab PO SCH ×3 (08:04→19:47)
[2020-08-02] MEDS: Ferrous Sulfate 325 MG Tab PO SCH (08:04)
[2020-08-02] MEDS: Nitrofurantoin Monohydrate/Macrocrystalline 100 MG Cap PO SCH ×2 (08:04→19:45)
[2020-08-02] MEDS: Multivitamins with Iron/Calcium/Folic Acid/Minerals Tab PO SCH (08:04)
[2020-08-02] MEDS: Mineral Oil/Petrolatum,White Crm 454 GM Jar TOP SCH ×2 (08:07→19:48)
[2020-08-02] MEDS: Famotidine 20 MG Tab PO SCH (19:45)
[2020-08-02] MEDS: Melatonin 3 MG Tab PO SCH (19:45)
[2020-08-02] MEDS: ROPINIROLE 0.5 MG PO SCH (19:46)
[2020-08-02] MEDS: Gabapentin 300 MG Cap (OWN SUPPLY) PO SCH (19:46)
[2020-08-03] MEDS: Omeprazole 20 MG Cap.CR PO SCH (06:14)
[2020-08-03] MEDS: Lactobacillus Rhamnosus GG (Probiotic) Cap PO SCH (06:14)
[2020-08-03] MEDS: Metoprolol Succinate 25 MG Tab.ER (OWN SUPPLY) PO SCH (08:27)
[2020-08-03] MEDS: Furosemide 20 MG Tab (OWN SUPPLY) PO SCH (08:27)
[2020-08-03] MEDS: Gabapentin 100 MG Cap (OWN SUPPLY) PO SCH ×2 (08:27→13:02)
[2020-08-03] MEDS: ISOSORBIDE MONONITRATE 30 MG PO SCH (08:28)
[2020-08-03] MEDS: Sertraline 100 MG Tab (OWN SUPPLY) PO SCH (08:28)
[2020-08-03] MEDS: Cholecalciferol (Vitamin D3) 10 MCG Tab PO SCH (08:28)
[2020-08-03] MEDS: Nitrofurantoin Monohydrate/Macrocrystalline 100 MG Cap PO SCH ×2 (08:28→19:33)
[2020-08-03] MEDS: Acetaminophen 325 MG Tab PO SCH ×3 (08:29→19:33)
[2020-08-03] MEDS: Vitamin B Complex Tab PO SCH (08:29)
[2020-08-03] MEDS: Multivitamins with Iron/Calcium/Folic Acid/Minerals Tab PO SCH (08:29)
[2020-08-03] MEDS: Mineral Oil/Petrolatum,White Crm 454 GM Jar TOP SCH ×2 (08:29→19:34)
[2020-08-03] MEDS: ROPINIROLE 0.5 MG PO SCH (19:33)
[2020-08-03] MEDS: Famotidine 20 MG Tab PO SCH (19:33)
[2020-08-03] MEDS: Gabapentin 300 MG Cap (OWN SUPPLY) PO SCH (19:33)
[2020-08-03] MEDS: Melatonin 3 MG Tab PO SCH (19:33)
[2020-08-04] MEDS: Omeprazole 20 MG Cap.CR PO SCH (06:32)
[2020-08-04] MEDS: Lactobacillus Rhamnosus GG (Probiotic) Cap PO SCH (06:32)
[2020-08-04 06:54] LABS: ANION GAP 4.6 mmol/L (5-15)
[2020-08-04] MEDS: Multivitamins with Iron/Calcium/Folic Acid/Minerals Tab PO SCH (08:47)
[2020-08-04] MEDS: Nitrofurantoin Monohydrate/Macrocrystalline 100 MG Cap PO SCH ×2 (08:47→19:59)
[2020-08-04] MEDS: Furosemide 20 MG Tab (OWN SUPPLY) PO SCH (08:47)
[2020-08-04] MEDS: ISOSORBIDE MONONITRATE 30 MG PO SCH (08:47)
[2020-08-04] MEDS: Acetaminophen 325 MG Tab PO SCH ×3 (08:47→19:59)
[2020-08-04] MEDS: Sertraline 100 MG Tab (OWN SUPPLY) PO SCH (08:48)
[2020-08-04] MEDS: Metoprolol Succinate 25 MG Tab.ER (OWN SUPPLY) PO SCH (08:48)
[2020-08-04] MEDS: Mineral Oil/Petrolatum,White Crm 454 GM Jar TOP SCH ×2 (08:49→20:05)
[2020-08-04] MEDS: Cholecalciferol (Vitamin D3) 10 MCG Tab PO SCH (08:49)
[2020-08-04] MEDS: Ferrous Sulfate 325 MG Tab PO SCH (08:49)
[2020-08-04] MEDS: Vitamin B Complex Tab PO SCH (08:49)
[2020-08-04] MEDS: Calcium Carbonate 750 MG Tab.Chew PO PRN (08:51)
[2020-08-04] MEDS: Gabapentin 100 MG Cap (OWN SUPPLY) PO SCH ×2 (08:52→13:35)
[2020-08-04] MEDS: Loperamide 2 MG Cap PO PRN (09:39)
[2020-08-04] MEDS: Melatonin 3 MG Tab PO SCH (19:59)
[2020-08-04] MEDS: Gabapentin 300 MG Cap (OWN SUPPLY) PO SCH (19:59)
[2020-08-04] MEDS: Famotidine 20 MG Tab PO SCH (19:59)
[2020-08-04] MEDS: ROPINIROLE 0.5 MG PO SCH (20:01)
[2020-08-04] MEDS: WARFARIN 5 MG PO SCH (20:46)
[2020-08-05] MEDS: Omeprazole 20 MG Cap.CR PO SCH (06:52)
[2020-08-05] MEDS: Lactobacillus Rhamnosus GG (Probiotic) Cap PO SCH (06:52)
[2020-08-05] MEDS: ISOSORBIDE MONONITRATE 30 MG PO SCH (09:56)
[2020-08-05] MEDS: Metoprolol Succinate 25 MG Tab.ER (OWN SUPPLY) PO SCH (09:56)
[2020-08-05] MEDS: Sertraline 100 MG Tab (OWN SUPPLY) PO SCH (09:56)
[2020-08-05] MEDS: Gabapentin 100 MG Cap (OWN SUPPLY) PO SCH ×2 (09:57→14:22)
[2020-08-05] MEDS: Furosemide 20 MG Tab (OWN SUPPLY) PO SCH (09:57)
[2020-08-05] MEDS: Vitamin B Complex Tab PO SCH (09:57)
[2020-08-05] MEDS: Cholecalciferol (Vitamin D3) 10 MCG Tab PO SCH (09:57)
[2020-08-05] MEDS: Acetaminophen 325 MG Tab PO SCH ×3 (09:58→20:34)
[2020-08-05] MEDS: Multivitamins with Iron/Calcium/Folic Acid/Minerals Tab PO SCH (09:58)
[2020-08-05] MEDS: Mineral Oil/Petrolatum,White Crm 454 GM Jar TOP SCH ×2 (09:58→20:35)
[2020-08-05] MEDS: Calcium Carbonate 750 MG Tab.Chew PO PRN ×2 (09:58→17:45)
[2020-08-05] MEDS: WARFARIN 5 MG PO SCH (20:32)
[2020-08-05] MEDS: Gabapentin 300 MG Cap (OWN SUPPLY) PO SCH (20:32)
[2020-08-05] MEDS: ROPINIROLE 0.5 MG PO SCH (20:33)
[2020-08-05] MEDS: Famotidine 20 MG Tab PO SCH (20:33)
[2020-08-05] MEDS: Melatonin 3 MG Tab PO SCH (20:34)
[2020-08-06] MEDS: Lactobacillus Rhamnosus GG (Probiotic) Cap PO SCH (06:15)
[2020-08-06] MEDS: Omeprazole 20 MG Cap.CR PO SCH (06:15)
[2020-08-06] MEDS: Multivitamins with Iron/Calcium/Folic Acid/Minerals Tab PO SCH (08:30)
[2020-08-06] MEDS: Ferrous Sulfate 325 MG Tab PO SCH (08:30)
[2020-08-06] MEDS: Vitamin B Complex Tab PO SCH (08:30)
[2020-08-06] MEDS: Acetaminophen 325 MG Tab PO SCH ×3 (08:30→19:34)
[2020-08-06] MEDS: Cholecalciferol (Vitamin D3) 10 MCG Tab PO SCH (08:30)
[2020-08-06] MEDS: Gabapentin 100 MG Cap (OWN SUPPLY) PO SCH ×2 (08:30→13:48)
[2020-08-06] MEDS: Furosemide 20 MG Tab (OWN SUPPLY) PO SCH (08:31)
[2020-08-06] MEDS: Metoprolol Succinate 25 MG Tab.ER (OWN SUPPLY) PO SCH (08:31)
[2020-08-06] MEDS: ISOSORBIDE MONONITRATE 30 MG PO SCH (08:31)
[2020-08-06] MEDS: Sertraline 100 MG Tab (OWN SUPPLY) PO SCH (08:32)
[2020-08-06] MEDS: Mineral Oil/Petrolatum,White Crm 454 GM Jar TOP SCH ×2 (08:32→19:35)
--- NOTE | 2020-08-06 13:04 | PCM.SN.2 ---
- Free Text/Narrative Note: Provider asked to see the patient for wound assessment. Patient had a fall with abrasion to the right elbow last week. Nursing worried about rate of healing of this. Also concern about worsening of right anterior joshi wound. At this time patient notes that things are about the same; no real concerns in regards to her skin today. Did have a bath this morning which may have improved the look of the elbow. Mood still down. A little nauseas today Right elbow: 4x2cm abrasion to the elbow with a scab noted. Small amount (3x10mm) piece of skin debrided from the edge of the wound Left joshi: quarter sized flat red lesion noted, chronic. No surrounding erythema/edema Right joshi: 3x3cm scabbed lesion noted to the right anterior distal joshi, small [place] of erythema. No warmth or drainage noted. This has been a chronic healing with wax/wane We will continue to keep all wounds open to the air, apply healing lotion (patient's) 2 times a day to each.
[2020-08-06] MEDS: ROPINIROLE 0.5 MG PO SCH (19:33)
[2020-08-06] MEDS: WARFARIN 5 MG PO SCH (19:33)
[2020-08-06] MEDS: Gabapentin 300 MG Cap (OWN SUPPLY) PO SCH (19:33)
[2020-08-06] MEDS: Famotidine 20 MG Tab PO SCH (19:34)
[2020-08-06] MEDS: Melatonin 3 MG Tab PO SCH (19:34)
[2020-08-07] MEDS: Calcium Carbonate 750 MG Tab.Chew PO PRN ×2 (05:31→20:06)
[2020-08-07] MEDS: Lactobacillus Rhamnosus GG (Probiotic) Cap PO SCH (06:22)
[2020-08-07] MEDS: Omeprazole 20 MG Cap.CR PO SCH (06:22)
[2020-08-07] MEDS: Sertraline 100 MG Tab (OWN SUPPLY) PO SCH (07:32)
[2020-08-07] MEDS: Metoprolol Succinate 25 MG Tab.ER (OWN SUPPLY) PO SCH (07:32)
[2020-08-07] MEDS: ISOSORBIDE MONONITRATE 30 MG PO SCH (07:33)
[2020-08-07] MEDS: Vitamin B Complex Tab PO SCH (07:33)
[2020-08-07] MEDS: Gabapentin 100 MG Cap (OWN SUPPLY) PO SCH ×2 (07:33→12:04)
[2020-08-07] MEDS: Furosemide 20 MG Tab (OWN SUPPLY) PO SCH (07:33)
[2020-08-07] MEDS: Cholecalciferol (Vitamin D3) 10 MCG Tab PO SCH (07:33)
[2020-08-07] MEDS: Acetaminophen 325 MG Tab PO SCH ×3 (07:34→20:05)
[2020-08-07] MEDS: Multivitamins with Iron/Calcium/Folic Acid/Minerals Tab PO SCH (07:34)
[2020-08-07] MEDS: Mineral Oil/Petrolatum,White Crm 454 GM Jar TOP SCH ×2 (07:34→20:06)
[2020-08-07] MEDS: ROPINIROLE 0.5 MG PO SCH (20:05)
[2020-08-07] MEDS: WARFARIN 5 MG PO SCH (20:05)
[2020-08-07] MEDS: Gabapentin 300 MG Cap (OWN SUPPLY) PO SCH (20:05)
[2020-08-07] MEDS: Famotidine 20 MG Tab PO SCH (20:05)
[2020-08-07] MEDS: Melatonin 3 MG Tab PO SCH (20:05)
[2020-08-08] MEDS: Omeprazole 20 MG Cap.CR PO SCH (06:14)
[2020-08-08] MEDS: Lactobacillus Rhamnosus GG (Probiotic) Cap PO SCH (06:14)
[2020-08-08] MEDS: Furosemide 20 MG Tab (OWN SUPPLY) PO SCH (08:04)
[2020-08-08] MEDS: Metoprolol Succinate 25 MG Tab.ER (OWN SUPPLY) PO SCH (08:04)
[2020-08-08] MEDS: ISOSORBIDE MONONITRATE 30 MG PO SCH (08:04)
[2020-08-08] MEDS: Cholecalciferol (Vitamin D3) 10 MCG Tab PO SCH (08:05)
[2020-08-08] MEDS: Vitamin B Complex Tab PO SCH (08:05)
[2020-08-08] MEDS: Sertraline 100 MG Tab (OWN SUPPLY) PO SCH (08:05)
[2020-08-08] MEDS: Gabapentin 100 MG Cap (OWN SUPPLY) PO SCH ×2 (08:05→13:27)
[2020-08-08] MEDS: Acetaminophen 325 MG Tab PO SCH ×3 (08:06→20:05)
[2020-08-08] MEDS: Ferrous Sulfate 325 MG Tab PO SCH (08:06)
[2020-08-08] MEDS: Multivitamins with Iron/Calcium/Folic Acid/Minerals Tab PO SCH (08:06)
[2020-08-08] MEDS: Mineral Oil/Petrolatum,White Crm 454 GM Jar TOP SCH ×2 (08:06→20:08)
[2020-08-08] MEDS: Furosemide 20 MG Tab PO SCH (13:28)
[2020-08-08] MEDS ORDERED: Furosemide 20 MG Tab PO SCH (16:00)
[2020-08-08] MEDS: ROPINIROLE 0.5 MG PO SCH (20:04)
[2020-08-08] MEDS: WARFARIN 5 MG PO SCH (20:04)
[2020-08-08] MEDS: Gabapentin 300 MG Cap (OWN SUPPLY) PO SCH (20:05)
[2020-08-08] MEDS: Famotidine 20 MG Tab PO SCH (20:05)
[2020-08-08] MEDS: Melatonin 3 MG Tab PO SCH (20:05)
[2020-08-08] MEDS: Calcium Carbonate 750 MG Tab.Chew PO PRN (20:06)
[2020-08-08] MEDS: Acetaminophen 500 MG Tab PO PRN (21:46)
[2020-08-09] MEDS: Omeprazole 20 MG Cap.CR PO SCH (06:25)
[2020-08-09] MEDS: Lactobacillus Rhamnosus GG (Probiotic) Cap PO SCH (06:25)
[2020-08-09] MEDS: Sertraline 100 MG Tab (OWN SUPPLY) PO SCH (09:41)
[2020-08-09] MEDS: Metoprolol Succinate 25 MG Tab.ER (OWN SUPPLY) PO SCH (09:41)
[2020-08-09] MEDS: ISOSORBIDE MONONITRATE 30 MG PO SCH (09:42)
[2020-08-09] MEDS: Mineral Oil/Petrolatum,White Crm 454 GM Jar TOP SCH ×2 (09:43→19:47)
[2020-08-09] MEDS: Gabapentin 100 MG Cap (OWN SUPPLY) PO SCH ×2 (09:43→14:40)
[2020-08-09] MEDS: Acetaminophen 325 MG Tab PO SCH ×3 (09:44→19:46)
[2020-08-09] MEDS: Cholecalciferol (Vitamin D3) 10 MCG Tab PO SCH (09:45)
[2020-08-09] MEDS: Multivitamins with Iron/Calcium/Folic Acid/Minerals Tab PO SCH (09:45)
[2020-08-09] MEDS: Vitamin B Complex Tab PO SCH (09:45)
[2020-08-09] MEDS: Furosemide 20 MG Tab PO SCH ×2 (09:52→14:48)
[2020-08-09] MEDS: Calcium Carbonate 750 MG Tab.Chew PO PRN (14:40)
[2020-08-09] MEDS: Gabapentin 300 MG Cap (OWN SUPPLY) PO SCH (19:45)
[2020-08-09] MEDS: Melatonin 3 MG Tab PO SCH (19:46)
[2020-08-09] MEDS: ROPINIROLE 0.5 MG PO SCH (19:46)
[2020-08-09] MEDS: Famotidine 20 MG Tab PO SCH (19:46)
[2020-08-09] MEDS: WARFARIN 5 MG PO SCH (19:46)
[2020-08-10] MEDS: Lactobacillus Rhamnosus GG (Probiotic) Cap PO SCH (06:27)
[2020-08-10] MEDS: Omeprazole 20 MG Cap.CR PO SCH (06:27)
[2020-08-10] MEDS: Gabapentin 100 MG Cap (OWN SUPPLY) PO SCH ×2 (09:15→12:16)
[2020-08-10] MEDS: Furosemide 20 MG Tab PO SCH ×2 (09:17→13:20)
[2020-08-10] MEDS: ISOSORBIDE MONONITRATE 30 MG PO SCH (09:17)
[2020-08-10] MEDS: Metoprolol Succinate 25 MG Tab.ER (OWN SUPPLY) PO SCH (09:18)
[2020-08-10] MEDS: Calcium Carbonate 750 MG Tab.Chew PO PRN ×2 (09:18→20:01)
[2020-08-10] MEDS: Sertraline 100 MG Tab (OWN SUPPLY) PO SCH (09:18)
[2020-08-10] MEDS: Acetaminophen 325 MG Tab PO SCH ×3 (09:27→20:05)
[2020-08-10] MEDS: Ferrous Sulfate 325 MG Tab PO SCH (09:28)
[2020-08-10] MEDS: Cholecalciferol (Vitamin D3) 10 MCG Tab PO SCH (09:28)
[2020-08-10] MEDS: Multivitamins with Iron/Calcium/Folic Acid/Minerals Tab PO SCH (09:29)
[2020-08-10] MEDS: Vitamin B Complex Tab PO SCH (09:29)
[2020-08-10] MEDS: Mineral Oil/Petrolatum,White Crm 454 GM Jar TOP SCH ×2 (09:41→20:06)
[2020-08-10] MEDS: Gabapentin 300 MG Cap (OWN SUPPLY) PO SCH (20:01)
[2020-08-10] MEDS: ROPINIROLE 0.5 MG PO SCH (20:04)
[2020-08-10] MEDS: WARFARIN 5 MG PO SCH (20:04)
[2020-08-10] MEDS: Melatonin 3 MG Tab PO SCH (20:05)
[2020-08-10] MEDS: Famotidine 20 MG Tab PO SCH (20:05)
[2020-08-11] MEDS: Lactobacillus Rhamnosus GG (Probiotic) Cap PO SCH (06:19)
[2020-08-11] MEDS: Omeprazole 20 MG Cap.CR PO SCH (06:20)
[2020-08-11] MEDS: Furosemide 20 MG Tab PO SCH ×3 (06:28→13:55)
[2020-08-11] MEDS: Metoprolol Succinate 25 MG Tab.ER (OWN SUPPLY) PO SCH ×2 (06:28→07:04)
[2020-08-11] MEDS: ISOSORBIDE MONONITRATE 30 MG PO SCH (08:18)
[2020-08-11] MEDS: Sertraline 100 MG Tab (OWN SUPPLY) PO SCH (08:18)
[2020-08-11] MEDS: Mineral Oil/Petrolatum,White Crm 454 GM Jar TOP SCH ×2 (08:19→20:19)
[2020-08-11] MEDS: Gabapentin 100 MG Cap (OWN SUPPLY) PO SCH ×2 (08:19→13:56)
[2020-08-11] MEDS: Cholecalciferol (Vitamin D3) 10 MCG Tab PO SCH (08:21)
[2020-08-11] MEDS: Multivitamins with Iron/Calcium/Folic Acid/Minerals Tab PO SCH (08:21)
[2020-08-11] MEDS: Calcium Carbonate 750 MG Tab.Chew PO PRN (08:21)
[2020-08-11] MEDS: Acetaminophen 325 MG Tab PO SCH ×3 (08:22→20:18)
[2020-08-11] MEDS: Vitamin B Complex Tab PO SCH (08:22)
[2020-08-11] MEDS ORDERED: Ondansetron 4 MG Tab.DIS PO PRN (08:34)
[2020-08-11 09:12] LABS: ANION GAP 6.8 mmol/L (5-15)
--- NOTE | 2020-08-11 11:45 | CR ---
[id number] RAD/RAD Chest PA And Lateral EXAM: FRONTAL AND LATERAL CHEST INDICATION: CRACKLES. COMPARISON: December 09, 2019. DISCUSSION: Cardiomegaly with development of mild central vascular congestion. Possible minimal pleural effusions. Surgical clips overlie the right lung base. IMPRESSION: 1. Mild congestive heart failure. Humble Mayes MD 08/11/20 1144 Thank you for allowing us to participate in the care of your patient.
--- NOTE | 2020-08-11 14:18 | PCM.SN.2 ---
- Free Text/Narrative Note: Provider updated by nursing staff of fall yesterday, did assess injuries yesterday. Updated today on increased weakness and bibasillar crackles. Patient's Lasix had already been increased earlier this week; swelling in LE improved. Continues on her 1-2L O2 per [place] (baseline) with sats in the upper 90s. On my exam patient is tired in appearance but stable and in NAD. Bibasillar crackles. LE swelling 1+. Will check labs today including INR, CBC, BMP, and CXR. Labs and imaging reviewed this afternoon. She does have a mild bump in her WBC's but no 'predominance' of any cell line. INR normal. BMP stable. CXR demonstrating fluid overload (bibasilar haziness) Will repeat CBC and get ESR/CRP in the morning. Continue Lasix as previously ordered.
[2020-08-11] MEDS: BUSPIRONE 15 MG PO SCH (20:15)
[2020-08-11] MEDS: WARFARIN 5 MG PO SCH (20:15)
[2020-08-11] MEDS: ROPINIROLE 0.5 MG PO SCH (20:15)
[2020-08-11] MEDS: Gabapentin 300 MG Cap (OWN SUPPLY) PO SCH (20:16)
[2020-08-11] MEDS: Famotidine 20 MG Tab PO SCH (20:16)
[2020-08-11] MEDS: Melatonin 3 MG Tab PO SCH (20:17)
[2020-08-12] MEDS: Lactobacillus Rhamnosus GG (Probiotic) Cap PO SCH (06:06)
[2020-08-12] MEDS: Omeprazole 20 MG Cap.CR PO SCH (06:06)
[2020-08-12] MEDS: Metoprolol Succinate 25 MG Tab.ER (OWN SUPPLY) PO SCH (07:41)
[2020-08-12] MEDS: ISOSORBIDE MONONITRATE 30 MG PO SCH (07:42)
[2020-08-12] MEDS: Sertraline 100 MG Tab (OWN SUPPLY) PO SCH (07:42)
[2020-08-12] MEDS: BUSPIRONE 15 MG PO SCH ×3 (07:42→20:26)
[2020-08-12] MEDS: Furosemide 20 MG Tab (OWN SUPPLY) PO SCH ×2 (07:43→13:10)
[2020-08-12] MEDS: Acetaminophen 325 MG Tab PO SCH ×3 (07:44→20:23)
[2020-08-12] MEDS: Ferrous Sulfate 325 MG Tab PO SCH (07:44)
[2020-08-12] MEDS: Multivitamins with Iron/Calcium/Folic Acid/Minerals Tab PO SCH (07:44)
[2020-08-12] MEDS: Gabapentin 100 MG Cap (OWN SUPPLY) PO SCH ×2 (07:44→13:10)
[2020-08-12] MEDS: Cholecalciferol (Vitamin D3) 10 MCG Tab PO SCH (07:44)
[2020-08-12] MEDS: Vitamin B Complex Tab PO SCH (07:45)
[2020-08-12] MEDS: Mineral Oil/Petrolatum,White Crm 454 GM Jar TOP SCH ×2 (07:46→20:29)
[2020-08-12] MEDS ORDERED: Ondansetron 4 MG Tab.DIS (OWN SUPPLY) PO PRN (08:39)
[2020-08-12] MEDS: Famotidine 20 MG Tab PO SCH (20:23)
[2020-08-12] MEDS: Melatonin 3 MG Tab PO SCH (20:23)
[2020-08-12] MEDS: Miconazole 2% Top Powder 45 GM Container TOP PRN (20:26)
[2020-08-12] MEDS: ROPINIROLE 0.5 MG PO SCH (20:27)
[2020-08-12] MEDS: WARFARIN 5 MG PO SCH (20:28)
[2020-08-12] MEDS: Gabapentin 300 MG Cap (OWN SUPPLY) PO SCH (20:29)
[2020-08-13] MEDS: Lactobacillus Rhamnosus GG (Probiotic) Cap PO SCH (06:23)
[2020-08-13] MEDS: Omeprazole 20 MG Cap.CR PO SCH (06:23)
[2020-08-13] MEDS: Furosemide 20 MG Tab (OWN SUPPLY) PO SCH ×2 (09:17→13:20)
[2020-08-13] MEDS: BUSPIRONE 15 MG PO SCH ×3 (09:18→20:06)
[2020-08-13] MEDS: ISOSORBIDE MONONITRATE 30 MG PO SCH (09:18)
[2020-08-13] MEDS: Sertraline 100 MG Tab (OWN SUPPLY) PO SCH (09:18)
[2020-08-13] MEDS: Metoprolol Succinate 25 MG Tab.ER (OWN SUPPLY) PO SCH (09:18)
[2020-08-13] MEDS: Gabapentin 100 MG Cap (OWN SUPPLY) PO SCH ×2 (09:19→13:19)
[2020-08-13] MEDS: Calcium Carbonate 750 MG Tab.Chew PO PRN (09:21)
[2020-08-13] MEDS: Multivitamins with Iron/Calcium/Folic Acid/Minerals Tab PO SCH (09:22)
[2020-08-13] MEDS: Acetaminophen 325 MG Tab PO SCH ×3 (09:22→20:04)
[2020-08-13] MEDS: Cholecalciferol (Vitamin D3) 10 MCG Tab PO SCH (09:22)
[2020-08-13] MEDS: Vitamin B Complex Tab PO SCH (09:22)
[2020-08-13] MEDS: Mineral Oil/Petrolatum,White Crm 454 GM Jar TOP SCH ×2 (09:25→20:06)
[2020-08-13] MEDS: Famotidine 20 MG Tab PO SCH (20:03)
[2020-08-13] MEDS: Melatonin 3 MG Tab PO SCH (20:04)
[2020-08-13] MEDS: ROPINIROLE 0.5 MG PO SCH (20:05)
[2020-08-13] MEDS: Gabapentin 300 MG Cap (OWN SUPPLY) PO SCH (20:07)
[2020-08-13] MEDS: WARFARIN 5 MG PO SCH (20:35)
[2020-08-14] MEDS: Omeprazole 20 MG Cap.CR PO SCH (06:56)
[2020-08-14] MEDS: Lactobacillus Rhamnosus GG (Probiotic) Cap PO SCH (06:56)
[2020-08-14] MEDS: Cholecalciferol (Vitamin D3) 10 MCG Tab PO SCH (08:24)
[2020-08-14] MEDS: Multivitamins with Iron/Calcium/Folic Acid/Minerals Tab PO SCH (08:24)
[2020-08-14] MEDS: Ferrous Sulfate 325 MG Tab PO SCH (08:25)
[2020-08-14] MEDS: Acetaminophen 325 MG Tab PO SCH ×3 (08:25→19:12)
[2020-08-14] MEDS: BUSPIRONE 15 MG PO SCH ×3 (08:25→19:14)
[2020-08-14] MEDS: Gabapentin 100 MG Cap (OWN SUPPLY) PO SCH ×2 (08:25→13:15)
[2020-08-14] MEDS: Vitamin B Complex Tab PO SCH (08:25)
[2020-08-14] MEDS: Furosemide 20 MG Tab (OWN SUPPLY) PO SCH (08:26)
[2020-08-14] MEDS: Metoprolol Succinate 25 MG Tab.ER (OWN SUPPLY) PO SCH (08:26)
[2020-08-14] MEDS: ISOSORBIDE MONONITRATE 30 MG PO SCH (08:26)
[2020-08-14] MEDS: Mineral Oil/Petrolatum,White Crm 454 GM Jar TOP SCH ×2 (08:27→19:14)
[2020-08-14] MEDS: Sertraline 100 MG Tab (OWN SUPPLY) PO SCH (08:28)
[2020-08-14] MEDS: Famotidine 20 MG Tab PO SCH (19:11)
[2020-08-14] MEDS: Melatonin 3 MG Tab PO SCH (19:11)
[2020-08-14] MEDS: Gabapentin 300 MG Cap (OWN SUPPLY) PO SCH (19:13)
[2020-08-14] MEDS: WARFARIN 5 MG PO SCH (19:13)
[2020-08-14] MEDS: ROPINIROLE 0.5 MG PO SCH (19:14)
[2020-08-15] MEDS: Lactobacillus Rhamnosus GG (Probiotic) Cap PO SCH (06:14)
[2020-08-15] MEDS: Omeprazole 20 MG Cap.CR PO SCH (06:14)
[2020-08-15] MEDS: Metoprolol Succinate 25 MG Tab.ER (OWN SUPPLY) PO SCH (08:47)
[2020-08-15] MEDS: Furosemide 20 MG Tab (OWN SUPPLY) PO SCH (08:47)
[2020-08-15] MEDS: BUSPIRONE 15 MG PO SCH ×3 (08:47→19:14)
[2020-08-15] MEDS: Sertraline 100 MG Tab (OWN SUPPLY) PO SCH (08:47)
[2020-08-15] MEDS: ISOSORBIDE MONONITRATE 30 MG PO SCH (08:47)
[2020-08-15] MEDS: Multivitamins with Iron/Calcium/Folic Acid/Minerals Tab PO SCH (08:48)
[2020-08-15] MEDS: Cholecalciferol (Vitamin D3) 10 MCG Tab PO SCH (08:48)
[2020-08-15] MEDS: Acetaminophen 325 MG Tab PO SCH ×3 (08:48→19:13)
[2020-08-15] MEDS: Mineral Oil/Petrolatum,White Crm 454 GM Jar TOP SCH ×2 (08:49→19:14)
[2020-08-15] MEDS: Vitamin B Complex Tab PO SCH (08:49)
[2020-08-15] MEDS: Gabapentin 100 MG Cap (OWN SUPPLY) PO SCH ×2 (08:49→13:20)
[2020-08-15] MEDS: Famotidine 20 MG Tab PO SCH (19:12)
[2020-08-15] MEDS: Melatonin 3 MG Tab PO SCH (19:12)
[2020-08-15] MEDS: ROPINIROLE 0.5 MG PO SCH (19:13)
[2020-08-15] MEDS: WARFARIN 5 MG PO SCH (19:13)
[2020-08-15] MEDS: Gabapentin 300 MG Cap (OWN SUPPLY) PO SCH (19:15)
[2020-08-16] MEDS: Omeprazole 20 MG Cap.CR PO SCH (06:21)
[2020-08-16] MEDS: Lactobacillus Rhamnosus GG (Probiotic) Cap PO SCH (06:21)
[2020-08-16] MEDS: BUSPIRONE 15 MG PO SCH ×3 (08:40→20:05)
[2020-08-16] MEDS: Gabapentin 100 MG Cap (OWN SUPPLY) PO SCH ×2 (08:40→13:21)
[2020-08-16] MEDS: Metoprolol Succinate 25 MG Tab.ER (OWN SUPPLY) PO SCH (08:40)
[2020-08-16] MEDS: Sertraline 100 MG Tab (OWN SUPPLY) PO SCH (08:40)
[2020-08-16] MEDS: Furosemide 20 MG Tab (OWN SUPPLY) PO SCH (08:41)
[2020-08-16] MEDS: Ferrous Sulfate 325 MG Tab PO SCH (08:41)
[2020-08-16] MEDS: ISOSORBIDE MONONITRATE 30 MG PO SCH (08:41)
[2020-08-16] MEDS: Vitamin B Complex Tab PO SCH (08:41)
[2020-08-16] MEDS: Acetaminophen 325 MG Tab PO SCH ×3 (08:41→19:58)
[2020-08-16] MEDS: Cholecalciferol (Vitamin D3) 10 MCG Tab PO SCH (08:42)
[2020-08-16] MEDS: Multivitamins with Iron/Calcium/Folic Acid/Minerals Tab PO SCH (08:42)
[2020-08-16] MEDS: Mineral Oil/Petrolatum,White Crm 454 GM Jar TOP SCH ×2 (08:43→19:59)
[2020-08-16] MEDS: Calcium Carbonate 750 MG Tab.Chew PO PRN (08:51)
[2020-08-16] MEDS: FUROSEMIDE 20 MG PO SCH (13:22)
[2020-08-16] MEDS: Famotidine 20 MG Tab PO SCH (19:59)
[2020-08-16] MEDS: Melatonin 3 MG Tab PO SCH (19:59)
[2020-08-16] MEDS: ROPINIROLE 0.5 MG PO SCH (20:04)
[2020-08-16] MEDS: Gabapentin 300 MG Cap (OWN SUPPLY) PO SCH (20:06)
[2020-08-16] MEDS: WARFARIN 5 MG PO SCH (20:07)
[2020-08-17] MEDS: Omeprazole 20 MG Cap.CR PO SCH (06:01)
[2020-08-17] MEDS: Lactobacillus Rhamnosus GG (Probiotic) Cap PO SCH (06:01)
[2020-08-17] MEDS: Metoprolol Succinate 25 MG Tab.ER (OWN SUPPLY) PO SCH (08:30)
[2020-08-17] MEDS: ISOSORBIDE MONONITRATE 30 MG PO SCH (08:31)
[2020-08-17] MEDS: Sertraline 100 MG Tab (OWN SUPPLY) PO SCH (08:31)
[2020-08-17] MEDS: BUSPIRONE 15 MG PO SCH ×3 (08:32→19:19)
[2020-08-17] MEDS: Multivitamins with Iron/Calcium/Folic Acid/Minerals Tab PO SCH (08:32)
[2020-08-17] MEDS: Cholecalciferol (Vitamin D3) 10 MCG Tab PO SCH (08:32)
[2020-08-17] MEDS: FUROSEMIDE 20 MG PO SCH ×2 (08:32→12:41)
[2020-08-17] MEDS: Vitamin B Complex Tab PO SCH (08:32)
[2020-08-17] MEDS: Gabapentin 100 MG Cap (OWN SUPPLY) PO SCH ×2 (08:33→12:41)
[2020-08-17] MEDS: Acetaminophen 325 MG Tab PO SCH ×3 (08:33→19:18)
[2020-08-17] MEDS: Mineral Oil/Petrolatum,White Crm 454 GM Jar TOP SCH ×2 (08:36→19:20)
[2020-08-17] MEDS: Famotidine 20 MG Tab PO SCH (19:17)
[2020-08-17] MEDS: Melatonin 3 MG Tab PO SCH (19:18)
[2020-08-17] MEDS: WARFARIN 5 MG PO SCH (19:19)
[2020-08-17] MEDS: ROPINIROLE 0.5 MG PO SCH (19:20)
[2020-08-17] MEDS: Gabapentin 300 MG Cap (OWN SUPPLY) PO SCH (19:21)
[2020-08-18] MEDS: Lactobacillus Rhamnosus GG (Probiotic) Cap PO SCH (06:19)
[2020-08-18] MEDS: Omeprazole 20 MG Cap.CR PO SCH (06:19)
[2020-08-18] MEDS: ISOSORBIDE MONONITRATE 30 MG PO SCH (08:08)
[2020-08-18] MEDS: Metoprolol Succinate 25 MG Tab.ER (OWN SUPPLY) PO SCH (08:08)
[2020-08-18] MEDS: Gabapentin 100 MG Cap (OWN SUPPLY) PO SCH ×2 (08:08→13:24)
[2020-08-18] MEDS: Sertraline 100 MG Tab (OWN SUPPLY) PO SCH (08:09)
[2020-08-18] MEDS: FUROSEMIDE 20 MG PO SCH ×2 (08:09→13:25)
[2020-08-18] MEDS: BUSPIRONE 15 MG PO SCH ×3 (08:09→19:45)
[2020-08-18] MEDS: Ferrous Sulfate 325 MG Tab PO SCH (08:10)
[2020-08-18] MEDS: Vitamin B Complex Tab PO SCH (08:10)
[2020-08-18] MEDS: Acetaminophen 325 MG Tab PO SCH ×3 (08:10→19:48)
[2020-08-18] MEDS: Cholecalciferol (Vitamin D3) 10 MCG Tab PO SCH (08:10)
[2020-08-18] MEDS: Mineral Oil/Petrolatum,White Crm 454 GM Jar TOP SCH ×2 (08:10→19:46)
[2020-08-18] MEDS: Multivitamins with Iron/Calcium/Folic Acid/Minerals Tab PO SCH (08:10)
--- NOTE | 2020-08-18 08:51 | PCM.PN ---
- General Info Date of Service: 08/18/20 Admission Dx/Problem (Free Text): Failure to Thrive, Bilateral LE weakness Subjective Update: Patient has been doing ok. We did increase lasix due to swelling and need to sleep upright for a handful of days with improvement, upon pulling back on this symptoms worsened again so decision made to continue at higher dose. She states her wounds are healing well (skin tears from falls). Right anterior joshi is open again. States her mood is a bit better since our medication adjustments. Continues to have concerns about weakness in her legs and ability to continue to ambulate; nursing also noting troubles with this but thinking mostly behavioral/motivational. Functional Status: Reports: Pain Controlled, Tolerating Diet, Ambulating (with walker or sitting and self-propelling in wheelchair) - Review of Systems General: Reports: No Symptoms HEENT: Reports: No Symptoms Pulmonary: Reports: No Symptoms Cardiovascular: Reports: No Symptoms Gastrointestinal: Reports: No Symptoms Genitourinary: Reports: No Symptoms Musculoskeletal: Reports: Leg Pain Skin: Reports: Other (skin tears healing, right joshi still draining/bandaged) Neurological: Reports: No Symptoms Psychiatric: Reports: Depression, Anxiety - Patient Data Vitals - Most Recent: Last Vital Signs Temp 97.9 F 08/18/20 06:00 Pulse 80 08/18/20 08:08 Resp 18 08/13/20 06:00 BP 118/54 L 08/18/20 08:08 Pulse Ox 96 08/13/20 15:00 Weight - Most Recent: 175 lb 9.6 oz I&O - Last 24 Hours: Intake & Output 08/17/20 08/18/20 08/18/20 22:59 06:59 14:59 Intake Total 180 Balance 180 Med Orders - Current: Current Medications Acetaminophen (Acetaminophen 500 Mg Tab) 1,000 mg PO BID PRN PRN Reason: Pain/Fever Last Admin: 08/08/20 21:46 Dose: 1,000 mg Documented by: Acetaminophen (Acetaminophen 325 Mg Tab) 650 mg PO TID@0800,1299,1999 [facility] [place] Last Admin: 08/18/20 08:10 Dose: 650 mg Documented by: Buspirone HCl (Buspirone 15 Mg Tab (Own Supply)) 7.5 mg PO TID@0800,1299,1999 [facility] [place] Last Admin: 08/18/20 08:09 Dose: 7.5 mg Documented by: Calcium Carbonate/Glycine (Calcium Carbonate 750 Mg Tab.Chew) 750 mg PO TID PRN PRN Reason: Dyspepsia Last Admin: 08/16/20 08:51 Dose: 750 mg Documented by: Cholecalciferol (Cholecalciferol (Vitamin D3) 10 Mcg Tab) 40 mcg PO DAILY [facility] [place] Last Admin: 08/18/20 08:10 Dose: 40 mcg Documented by: Docusate Sodium (Docusate Sodium 100 Mg Cap) 100 mg PO DAILY PRN PRN Reason: Constipation Famotidine (Famotidine 20 Mg Tab) 20 mg PO BEDTIME [facility] [place] Last Admin: 08/17/20 19:17 Dose: 20 mg Documented by: Ferrous Sulfate (Ferrous Sulfate 325 Mg Tab) 325 mg PO Q48H [facility] [place] Last Admin: 08/18/20 08:10 Dose: 325 mg Documented by: Furosemide (Furosemide 20 Mg Tab (Own Suppy)) 20 mg PO BID@0800,1300 [facility] [place] Last Admin: 08/18/20 08:09 Dose: 20 mg Documented by: Gabapentin (Gabapentin 100 Mg Cap (Own Supply)) 100 mg PO BID@0800,1300 [facility] [place] Last Admin: 08/18/20 08:08 Dose: 100 mg Documented by: Gabapentin (Gabapentin 300 Mg Cap (Own Supply)) 300 mg PO BEDTIME [facility] [place] Last Admin: 08/17/20 19:21 Dose: 300 mg Documented by: Isosorbide Mononitrate (Isosorbide Mononitrate 30 Mg Tab.Er (Own Supply)) 30 mg PO DAILY [facility] [place] Last Admin: 08/18/20 08:08 Dose: 30 mg Documented by: Lactobacillus Rhamnosus (Lactobacillus Rhamnosus Gg (Probiotic) Cap) 1 cap PO DAILY@0700 [facility] [place] Last Admin: 08/18/20 06:19 Dose: 1 cap Documented by: Loperamide HCl (Loperamide 2 Mg Cap) 2 mg PO Q12H PRN PRN Reason: Diarrhea Last Admin: 08/04/20 09:39 Dose: 2 mg Documented by: Melatonin (Melatonin 3 Mg Tab) 6 mg PO BEDTIME [facility] [place] Last Admin: 08/17/20 19:18 Dose: 6 mg Documented by: Metoprolol Succinate (Metoprolol Succinate 25 Mg Tab.Er (Own Supply)) 25 mg PO DAILY [facility] [place] Last Admin: 08/18/20 08:08 Dose: 25 mg Documented by: Miconazole (Miconazole 2% Top Powder 45 Gm Container) 0 gm TOP BID PRN PRN Reason: RASH UNDER BILATERAL BREASTS Last Admin: 08/12/20 20:26 Dose: 1 applic Documented by: Mineral Oil/White Petrolatum (Mineral Oil/Petrolatum,White Crm 454 Gm Jar) 0 gm TOP BID [facility] [place] Last Admin: 08/18/20 08:10 Dose: 1 applic Documented by: Multivitamins/Minerals (Multivitamins With Iron/Calcium/Folic Acid/Minerals Tab) 1 tab PO DAILY [facility] [place] Last Admin: 08/18/20 08:10 Dose: 1 tab Documented by: Nitroglycerin (Nitroglycerin 0.4 Mg Tab.Sl (Own Supply)) 0.4 mg SL Q5M PRN PRN Reason: Chest Pain Last Admin: 07/02/20 11:11 Dose: 0.4 mg Documented by: Omeprazole (Omeprazole 20 Mg Cap.Cr) 20 mg PO DAILY@0700 [facility] [place] Last Admin: 08/18/20 06:19 Dose: 20 mg Documented by: Ondansetron HCl (Ondansetron 4 Mg Tab.Dis (Own Supply)) 4 mg PO Q4H PRN PRN Reason: Nausea/Vomiting Last Admin: 08/16/20 18:25 Dose: 4 mg Documented by: Pharmacy Consult (Warfarin Monthly Monitoring (+Prn)) 1 each .XX ASDIRECTED [facility] [place] Polyethylene Glycol (Polyethylene Glycol 3350 Powder 17 Gm Packet) 17 gm PO DAILY PRN PRN Reason: Constipation Ropinirole HCl (Ropinirole 0.5 Mg Tab (Own Supply)) 0.5 mg PO BEDTIME [facility] [place] Last Admin: 08/17/20 19:20 Dose: 0.5 mg Documented by: Senna/Docusate Sodium (Docusate Sodium/Sennosides 50-8.6 Mg Tab) 1 tab PO DAILY PRN PRN Reason: Constipation Sertraline HCl (Sertraline 100 Mg Tab (Own Supply)) 100 mg PO DAILY [facility] [place] Last Admin: 08/18/20 08:09 Dose: 100 mg Documented by: Vitamin B Complex (Vitamin B Complex Tab) 1 each PO DAILY [facility] [place] Last Admin: 08/18/20 08:10 Dose: 1 each Documented by: Warfarin Sodium (Warfarin 5 Mg Tab (Own Supply)) 5 mg PO SuTuThSa@1999 [facility] [place] Last Admin: 08/17/20 19:19 Dose: 5 mg Documented by: Warfarin Sodium (Warfarin 5 Mg Tab (Own Supply)) 2.5 mg PO MoWeFr@1999 [facility] [place] Last Admin: 08/16/20 20:07 Dose: 2.5 mg Documented by: Discontinued Medications Buspirone HCl (Buspirone 5 Mg Tab (Own Supply)) 5 mg PO TID@0800,1300,1999 [facility] [place] Last Admin: 07/21/20 09:19 Dose: Not Given Documented by: Buspirone HCl (Buspirone 5 Mg Tab (Own Supply)) 7.5 mg PO TID@0800,1300,1999 [facility] [place] Stop: 08/11/20 13:01 Last Admin: 08/11/20 13:55 Dose: 7.5 mg Documented by: Buspirone HCl (Buspirone 5 Mg Tab (Own Supply)) 5 mg PO BID [facility] [place] Last Admin: 06/21/20 08:34 Dose: 5 mg Documented by: Ciprofloxacin (Ciprofloxacin 500 Mg Tab) 500 mg PO Q24H [facility] [place] Stop: 03/04/20 20:01 Last Admin: 03/04/20 19:24 Dose: 500 mg Documented by: Famotidine (Famotidine 20 Mg Tab) 20 mg PO DAILY [facility] [place] Last Admin: 02/20/20 08:14 Dose: 20 mg Documented by: Furosemide (Furosemide 20 Mg Tab (Own Supply)) 20 mg PO DAILY@1200 [facility] [place] Stop: 04/18/20 12:01 Last Admin: 04/18/20 12:16 Dose: 20 mg Documented by: Furosemide (Furosemide 20 Mg Tab) 20 mg PO BIDDIURETIC [facility] [place] Stop: 08/13/20 23:59 Furosemide (Furosemide 20 Mg Tab (Own Supply)) 20 mg PO DAILY [facility] [place] Last Admin: 08/16/20 08:41 Dose: 20 mg Documented by: Furosemide (Furosemide 20 Mg Tab) 20 mg PO 0800,1400 [facility] [place] Stop: 08/13/20 14:01 Last Admin: 08/11/20 13:55 Dose: 20 mg Documented by: Furosemide (Furosemide 20 Mg Tab (Own Supply)) 20 mg PO BID@0800,1400 [facility] [place] Stop: 08/13/20 14:01 Last Admin: 08/13/20 13:20 Dose: 20 mg Documented by: Furosemide (Furosemide 20 Mg Tab (Own Supply)) 20 mg PO DAILY [facility] [place] Last Admin: 08/08/20 08:04 Dose: 20 mg Documented by: Lactobacillus Rhamnosus (Lactobacillus Rhamnosus Gg (Probiotic) Cap) 1 cap PO DAILY [facility] [place] Last Admin: 08/01/20 08:32 Dose: 1 cap Documented by: Nitrofurantoin Macrocrystals (Nitrofurantoin Monohydrate/Macrocrystalline 100 Mg Cap) 100 mg PO BID [facility] [place] Stop: 03/07/20 08:31 Last Admin: 02/29/20 09:00 Dose: 100 mg Documented by: Nitrofurantoin Macrocrystals (Nitrofurantoin Monohydrate/Macrocrystalline 100 Mg Cap) 100 mg PO BID [facility] [place] Stop: 08/04/20 20:01 Last Admin: 08/04/20 19:59 Dose: 100 mg Documented by: Omeprazole (Omeprazole 20 Mg Cap.Cr) 20 mg PO DAILY [facility] [place] Last Admin: 02/20/20 08:14 Dose: 20 mg Documented by: Ondansetron HCl (Ondansetron 4 Mg Tab.Dis) 4 mg PO Q4H PRN PRN Reason: Nausea/Vomiting Warfarin Sodium (Warfarin 5 Mg Tab (Own Med)) 5 mg PO SuMoTuWeFrSa@1999 [facility] [place] Last Admin: 07/04/20 19:22 Dose: 5 mg Documented by: Warfarin Sodium (Warfarin 5 Mg Tab (Own Med)) 2.5 mg PO @1999 [facility] [place] Last Admin: 07/01/20 19:28 Dose: 2.5 mg Documented by: - Exam Quality Assessment: Supplemental Oxygen General: Alert, Oriented HEENT: EOMI, Mucous Membr. Moist/[place] Neck: Supple Lungs: Clear to Auscultation, Normal Respiratory Effort Cardiovascular: Regular Rate, Regular Rhythm GI/Abdominal Exam: Normal Bowel Sounds, Soft, No Distention Extremities: Pedal Edema (1+ to mid-joshi bilaterally, tender to palpation) Skin: Warm, Dry Wound/Incisions: Healing Well (skin tears on upper extremities healing well, open wound to RLE about 3x3cm, superficial with good granulation tissue at the base, no surrounding erythema/edema) Psy/Mental Status: Alert, Depressed - Patient Data Result Diagrams: 08/12/20 06:30 08/11/20 08:45 Sepsis Event Note - Evaluation Sepsis Screening Result: No Definite Risk - Focused Exam Vital Signs: Vital Signs Temp Pulse BP 08/18/20 08:08 80 118/54 L 08/18/20 06:00 97.9 F - Problem List & Annotations (1) Need for assistance with personal care SNOMED Code(s): 40551911831490027 Code(s): Z74.1 - NEED FOR ASSISTANCE WITH PERSONAL CARE Status: Acute C urrent Visit: No (2) Depression SNOMED Code(s): 27790347 Code(s): F32.9 - MAJOR DEPRESSIVE DISORDER, SINGLE EPISODE, UNSPECIFIED Status: Chronic Current Visit: No (3) Anxiety SNOMED Code(s): 27254365 Code(s): F41.9 - ANXIETY DISORDER, UNSPECIFIED Status: Chronic Current Visit: No (4) CKD (chronic kidney disease) SNOMED Code(s): 239414137 Code(s): N18.9 - CHRONIC KIDNEY DISEASE, UNSPECIFIED Status: Chronic Current Visit: No (5) COPD (chronic obstructive pulmonary disease) SNOMED Code(s): 82667600 Code(s): J44.9 - CHRONIC OBSTRUCTIVE PULMONARY DISEASE, UNSPECIFIED Status: Chronic Current Visit: No (6) Diastolic HF (heart failure) SNOMED Code(s): 719644026 Code(s): I50.30 - UNSPECIFIED DIASTOLIC (CONGESTIVE) HEART FAILURE Status: Chronic Current Visit: No (7) GERD (gastroesophageal reflux disease) SNOMED Code(s): 377658921 Code(s): K21.9 - GASTRO-ESOPHAGEAL REFLUX DISEASE WITHOUT ESOPHAGITIS Status: Chronic Current Visit: No (8) Hypertension SNOMED Code(s): 82150734 Code(s): I10 - ESSENTIAL (PRIMARY) HYPERTENSION Status: Chronic Current Visit: No - Problem List Review Problem List Initiated/Reviewed/Updated: Yes - My Orders Last 24 Hours: My Active Orders 08/30/20 07:00 INR,PT,PROTHROMBIN TIME [COAG] Q28D 09/27/20 07:00 INR,PT,PROTHROMBIN TIME [COAG] Q28D 10/25/20 07:00 INR,PT,PROTHROMBIN TIME [COAG] Q28D - Assessment Assessment:: Failure to Thrive Chronic Leg Weakness - Patient is long-term swing bed stay for assistance with ADLs due to the above Plan: - Continue regular daily care is as previously prescribed - Continue physical therapy as previously prescribed - Encouraged patient to leave room 3 times a day; self-propel in the wheelchair (walk-along) Leg wound Diastolic CHF - Lasix increased to BID - Leg wound open at this time Plan: - Staff to continue wound cares - Discussed use of compression stockings/DARBY, patient refuses - Continue Lasix BID - BMP next week to check renal function/electrolytes Depression - Patients continues to exhibit depressive symptoms, reports slightly improved Plan: - Continue Buspar 7.5mg TID - Continue Zoloft at 100mg daily - Continue Vitamin D - Encouraged increased social interactions on the unit, patient instructed to leave room 3x a day even if this entails her 'walking' the unit in a wheelchair - Reassess next month Breast Cancer, s/p lumpectomy - plan for follow-up with oncology as previously planned (repeat breast exam every 6 months, f/u visit with one in Dec 2020 with mammo) HTN - continue metoprolol 25mg daily GERD - continue omeprazole 20mg daily, prn Pepcid 20mg, prn Tums Anxiety/Depression - continue Zoloft 100mg daily, BuSpar 7.5mg TID, Vitamin D Angina - continue Imdur 30mg daily, prn Nitro Restless legs - Requip 0.5mg at bedtime Chronic pain - Gabapentin 100mg am and noon, 300mg at supper Hx DVT - continue Warfarin, serial INR per pharmacy Peripheral edema - continue Lasix 20mg BID Constipation - continue Colace 100mg dialy, prn miralax Fe-def anemia - continue iron 325mg e/o day Insomnia - continue melatonin 3mg at bedtime Chronic respiratory failure - continue supplemental O2 Fungal rash - continue prn miconazole
[2020-08-18] MEDS: WARFARIN 5 MG PO SCH (19:45)
[2020-08-18] MEDS: Gabapentin 300 MG Cap (OWN SUPPLY) PO SCH (19:46)
[2020-08-18] MEDS: Melatonin 3 MG Tab PO SCH (19:46)
[2020-08-18] MEDS: Famotidine 20 MG Tab PO SCH (19:47)
[2020-08-18] MEDS: ROPINIROLE 0.5 MG PO SCH (19:48)
[2020-08-19] MEDS: Lactobacillus Rhamnosus GG (Probiotic) Cap PO SCH (06:05)
[2020-08-19] MEDS: Omeprazole 20 MG Cap.CR PO SCH (06:05)
[2020-08-19] MEDS: FUROSEMIDE 20 MG PO SCH ×2 (07:46→12:21)
[2020-08-19] MEDS: BUSPIRONE 15 MG PO SCH ×3 (07:46→19:54)
[2020-08-19] MEDS: Gabapentin 100 MG Cap (OWN SUPPLY) PO SCH ×2 (07:50→12:21)
[2020-08-19] MEDS: ISOSORBIDE MONONITRATE 30 MG PO SCH (07:50)
[2020-08-19] MEDS: Sertraline 100 MG Tab (OWN SUPPLY) PO SCH (07:50)
[2020-08-19] MEDS: Metoprolol Succinate 25 MG Tab.ER (OWN SUPPLY) PO SCH (07:51)
[2020-08-19] MEDS: Multivitamins with Iron/Calcium/Folic Acid/Minerals Tab PO SCH (07:52)
[2020-08-19] MEDS: Cholecalciferol (Vitamin D3) 10 MCG Tab PO SCH (07:52)
[2020-08-19] MEDS: Vitamin B Complex Tab PO SCH (07:52)
[2020-08-19] MEDS: Acetaminophen 325 MG Tab PO SCH ×3 (07:52→19:56)
[2020-08-19] MEDS: Mineral Oil/Petrolatum,White Crm 454 GM Jar TOP SCH ×2 (07:53→20:01)
[2020-08-19] MEDS: Calcium Carbonate 750 MG Tab.Chew PO PRN (12:22)
[2020-08-19] MEDS: ROPINIROLE 0.5 MG PO SCH (19:55)
[2020-08-19] MEDS: WARFARIN 5 MG PO SCH (19:55)
[2020-08-19] MEDS: Famotidine 20 MG Tab PO SCH (19:56)
[2020-08-19] MEDS: Melatonin 3 MG Tab PO SCH (19:56)
[2020-08-19] MEDS: Gabapentin 300 MG Cap (OWN SUPPLY) PO SCH (19:57)
[2020-08-20] MEDS: Omeprazole 20 MG Cap.CR PO SCH (06:00)
[2020-08-20] MEDS: Lactobacillus Rhamnosus GG (Probiotic) Cap PO SCH (06:00)
[2020-08-20] MEDS: BUSPIRONE 15 MG PO SCH ×3 (07:16→19:21)
[2020-08-20] MEDS: FUROSEMIDE 20 MG PO SCH ×2 (07:16→11:59)
[2020-08-20] MEDS: Metoprolol Succinate 25 MG Tab.ER (OWN SUPPLY) PO SCH (07:17)
[2020-08-20] MEDS: Sertraline 100 MG Tab (OWN SUPPLY) PO SCH (07:17)
[2020-08-20] MEDS: ISOSORBIDE MONONITRATE 30 MG PO SCH (07:17)
[2020-08-20] MEDS: Acetaminophen 325 MG Tab PO SCH ×3 (07:18→19:20)
[2020-08-20] MEDS: Ferrous Sulfate 325 MG Tab PO SCH (07:18)
[2020-08-20] MEDS: Cholecalciferol (Vitamin D3) 10 MCG Tab PO SCH (07:18)
[2020-08-20] MEDS: Vitamin B Complex Tab PO SCH (07:18)
[2020-08-20] MEDS: Multivitamins with Iron/Calcium/Folic Acid/Minerals Tab PO SCH (07:18)
[2020-08-20] MEDS: Mineral Oil/Petrolatum,White Crm 454 GM Jar TOP SCH ×2 (07:20→19:22)
[2020-08-20] MEDS: Gabapentin 100 MG Cap (OWN SUPPLY) PO SCH ×2 (07:20→12:00)
[2020-08-20] MEDS: Calcium Carbonate 750 MG Tab.Chew PO PRN (07:25)
[2020-08-20] MEDS: Melatonin 3 MG Tab PO SCH (19:20)
[2020-08-20] MEDS: Famotidine 20 MG Tab PO SCH (19:21)
[2020-08-20] MEDS: WARFARIN 5 MG PO SCH (19:21)
[2020-08-20] MEDS: ROPINIROLE 0.5 MG PO SCH (19:21)
[2020-08-20] MEDS: Gabapentin 300 MG Cap (OWN SUPPLY) PO SCH (19:26)
[2020-08-21] MEDS: Omeprazole 20 MG Cap.CR PO SCH (06:20)
[2020-08-21] MEDS: Lactobacillus Rhamnosus GG (Probiotic) Cap PO SCH (06:20)
[2020-08-21] MEDS: Gabapentin 100 MG Cap (OWN SUPPLY) PO SCH ×2 (08:24→16:02)
[2020-08-21] MEDS: Mineral Oil/Petrolatum,White Crm 454 GM Jar TOP SCH ×2 (08:24→19:36)
[2020-08-21] MEDS: Calcium Carbonate 750 MG Tab.Chew PO PRN (08:24)
[2020-08-21] MEDS: Cholecalciferol (Vitamin D3) 10 MCG Tab PO SCH (08:25)
[2020-08-21] MEDS: Acetaminophen 325 MG Tab PO SCH ×3 (08:25→19:34)
[2020-08-21] MEDS: Vitamin B Complex Tab PO SCH (08:25)
[2020-08-21] MEDS: BUSPIRONE 15 MG PO SCH ×3 (08:26→19:36)
[2020-08-21] MEDS: Multivitamins with Iron/Calcium/Folic Acid/Minerals Tab PO SCH (08:26)
[2020-08-21] MEDS: ISOSORBIDE MONONITRATE 30 MG PO SCH (08:27)
[2020-08-21] MEDS: FUROSEMIDE 20 MG PO SCH ×2 (08:27→16:03)
[2020-08-21] MEDS: Metoprolol Succinate 25 MG Tab.ER (OWN SUPPLY) PO SCH (08:31)
[2020-08-21] MEDS: Sertraline 100 MG Tab (OWN SUPPLY) PO SCH (08:32)
[2020-08-21] MEDS: Famotidine 20 MG Tab PO SCH (19:33)
[2020-08-21] MEDS: Melatonin 3 MG Tab PO SCH (19:33)
[2020-08-21] MEDS: Gabapentin 300 MG Cap (OWN SUPPLY) PO SCH (19:34)
[2020-08-21] MEDS: WARFARIN 5 MG PO SCH (19:34)
[2020-08-21] MEDS: ROPINIROLE 0.5 MG PO SCH (19:35)
[2020-08-22] MEDS: Lactobacillus Rhamnosus GG (Probiotic) Cap PO SCH (06:05)
[2020-08-22] MEDS: Omeprazole 20 MG Cap.CR PO SCH (06:05)
[2020-08-22] MEDS: Gabapentin 100 MG Cap (OWN SUPPLY) PO SCH ×2 (08:30→13:03)
[2020-08-22] MEDS: ISOSORBIDE MONONITRATE 30 MG PO SCH (08:31)
[2020-08-22] MEDS: BUSPIRONE 15 MG PO SCH ×3 (08:31→19:25)
[2020-08-22] MEDS: FUROSEMIDE 20 MG PO SCH ×2 (08:31→13:03)
[2020-08-22] MEDS: Sertraline 100 MG Tab (OWN SUPPLY) PO SCH (08:32)
[2020-08-22] MEDS: Calcium Carbonate 750 MG Tab.Chew PO PRN (08:32)
[2020-08-22] MEDS: Metoprolol Succinate 25 MG Tab.ER (OWN SUPPLY) PO SCH (08:32)
[2020-08-22] MEDS: Multivitamins with Iron/Calcium/Folic Acid/Minerals Tab PO SCH (08:33)
[2020-08-22] MEDS: Cholecalciferol (Vitamin D3) 10 MCG Tab PO SCH (08:33)
[2020-08-22] MEDS: Acetaminophen 325 MG Tab PO SCH ×3 (08:33→19:26)
[2020-08-22] MEDS: Ferrous Sulfate 325 MG Tab PO SCH (08:33)
[2020-08-22] MEDS: Vitamin B Complex Tab PO SCH (08:33)
[2020-08-22] MEDS: Mineral Oil/Petrolatum,White Crm 454 GM Jar TOP SCH ×2 (08:36→19:27)
[2020-08-22] MEDS: ROPINIROLE 0.5 MG PO SCH (19:26)
[2020-08-22] MEDS: Gabapentin 300 MG Cap (OWN SUPPLY) PO SCH (19:26)
[2020-08-22] MEDS: WARFARIN 5 MG PO SCH (19:26)
[2020-08-22] MEDS: Famotidine 20 MG Tab PO SCH (19:27)
[2020-08-22] MEDS: Melatonin 3 MG Tab PO SCH (19:27)
[2020-08-23] MEDS: Omeprazole 20 MG Cap.CR PO SCH (06:03)
[2020-08-23] MEDS: Lactobacillus Rhamnosus GG (Probiotic) Cap PO SCH (06:03)
[2020-08-23] MEDS: Gabapentin 100 MG Cap (OWN SUPPLY) PO SCH ×2 (07:34→12:29)
[2020-08-23] MEDS: FUROSEMIDE 20 MG PO SCH ×2 (07:35→12:31)
[2020-08-23] MEDS: ISOSORBIDE MONONITRATE 30 MG PO SCH (07:35)
[2020-08-23] MEDS: BUSPIRONE 15 MG PO SCH ×3 (07:35→19:43)
[2020-08-23] MEDS: Metoprolol Succinate 25 MG Tab.ER (OWN SUPPLY) PO SCH (07:36)
[2020-08-23] MEDS: Sertraline 100 MG Tab (OWN SUPPLY) PO SCH (07:36)
[2020-08-23] MEDS: Multivitamins with Iron/Calcium/Folic Acid/Minerals Tab PO SCH (07:37)
[2020-08-23] MEDS: Vitamin B Complex Tab PO SCH (07:37)
[2020-08-23] MEDS: Cholecalciferol (Vitamin D3) 10 MCG Tab PO SCH (07:37)
[2020-08-23] MEDS: Acetaminophen 325 MG Tab PO SCH ×3 (07:37→19:43)
[2020-08-23] MEDS: Mineral Oil/Petrolatum,White Crm 454 GM Jar TOP SCH ×2 (07:38→19:43)
[2020-08-23 07:39] LABS: ANION GAP 5.9 mmol/L (5-15)
[2020-08-23] MEDS: WARFARIN 5 MG PO SCH (19:40)
[2020-08-23] MEDS: Famotidine 20 MG Tab PO SCH (19:40)
[2020-08-23] MEDS: Melatonin 3 MG Tab PO SCH (19:40)
[2020-08-23] MEDS: ROPINIROLE 0.5 MG PO SCH (19:40)
[2020-08-23] MEDS: Gabapentin 300 MG Cap (OWN SUPPLY) PO SCH (19:40)
[2020-08-24] MEDS: Lactobacillus Rhamnosus GG (Probiotic) Cap PO SCH (06:02)
[2020-08-24] MEDS: Omeprazole 20 MG Cap.CR PO SCH (06:02)
[2020-08-24] MEDS: Cholecalciferol (Vitamin D3) 10 MCG Tab PO SCH (07:45)
[2020-08-24] MEDS: Acetaminophen 325 MG Tab PO SCH ×3 (07:45→19:40)
[2020-08-24] MEDS: FUROSEMIDE 20 MG PO SCH ×2 (07:46→13:23)
[2020-08-24] MEDS: Ferrous Sulfate 325 MG Tab PO SCH (07:46)
[2020-08-24] MEDS: Gabapentin 100 MG Cap (OWN SUPPLY) PO SCH ×2 (07:46→13:23)
[2020-08-24] MEDS: Multivitamins with Iron/Calcium/Folic Acid/Minerals Tab PO SCH (07:46)
[2020-08-24] MEDS: BUSPIRONE 15 MG PO SCH ×3 (07:46→19:41)
[2020-08-24] MEDS: Vitamin B Complex Tab PO SCH (07:46)
[2020-08-24] MEDS: Metoprolol Succinate 25 MG Tab.ER (OWN SUPPLY) PO SCH (07:47)
[2020-08-24] MEDS: ISOSORBIDE MONONITRATE 30 MG PO SCH (07:47)
[2020-08-24] MEDS: Sertraline 100 MG Tab (OWN SUPPLY) PO SCH (07:47)
[2020-08-24] MEDS: Mineral Oil/Petrolatum,White Crm 454 GM Jar TOP SCH ×2 (07:48→19:38)
[2020-08-24] MEDS: WARFARIN 5 MG PO SCH (19:36)
[2020-08-24] MEDS: Melatonin 3 MG Tab PO SCH (19:38)
[2020-08-24] MEDS: Gabapentin 300 MG Cap (OWN SUPPLY) PO SCH (19:39)
[2020-08-24] MEDS: Famotidine 20 MG Tab PO SCH (19:40)
[2020-08-24] MEDS: ROPINIROLE 0.5 MG PO SCH (19:40)
[2020-08-25] MEDS: Lactobacillus Rhamnosus GG (Probiotic) Cap PO SCH (06:41)
[2020-08-25] MEDS: Omeprazole 20 MG Cap.CR PO SCH (06:41)
[2020-08-25] MEDS: Gabapentin 100 MG Cap (OWN SUPPLY) PO SCH ×2 (08:28→12:57)
[2020-08-25] MEDS: Metoprolol Succinate 25 MG Tab.ER (OWN SUPPLY) PO SCH (08:29)
[2020-08-25] MEDS: BUSPIRONE 15 MG PO SCH ×3 (08:30→19:54)
[2020-08-25] MEDS: Sertraline 100 MG Tab (OWN SUPPLY) PO SCH (08:30)
[2020-08-25] MEDS: ISOSORBIDE MONONITRATE 30 MG PO SCH (08:30)
[2020-08-25] MEDS: FUROSEMIDE 20 MG PO SCH ×2 (08:30→12:56)
[2020-08-25] MEDS: Cholecalciferol (Vitamin D3) 10 MCG Tab PO SCH (08:31)
[2020-08-25] MEDS: Multivitamins with Iron/Calcium/Folic Acid/Minerals Tab PO SCH (08:31)
[2020-08-25] MEDS: Vitamin B Complex Tab PO SCH (08:31)
[2020-08-25] MEDS: Acetaminophen 325 MG Tab PO SCH ×3 (08:31→19:53)
[2020-08-25] MEDS: Mineral Oil/Petrolatum,White Crm 454 GM Jar TOP SCH ×2 (08:32→19:54)
[2020-08-25] MEDS: Melatonin 3 MG Tab PO SCH (19:52)
[2020-08-25] MEDS: ROPINIROLE 0.5 MG PO SCH (19:53)
[2020-08-25] MEDS: Famotidine 20 MG Tab PO SCH (19:53)
[2020-08-25] MEDS: WARFARIN 5 MG PO SCH (19:54)
[2020-08-25] MEDS: Gabapentin 300 MG Cap (OWN SUPPLY) PO SCH (19:55)
[2020-08-26] MEDS: Lactobacillus Rhamnosus GG (Probiotic) Cap PO SCH (06:32)
[2020-08-26] MEDS: Omeprazole 20 MG Cap.CR PO SCH (06:32)
[2020-08-26] MEDS: BUSPIRONE 15 MG PO SCH ×3 (08:29→19:46)
[2020-08-26] MEDS: Gabapentin 100 MG Cap (OWN SUPPLY) PO SCH ×2 (08:30→13:07)
[2020-08-26] MEDS: ISOSORBIDE MONONITRATE 30 MG PO SCH (08:30)
[2020-08-26] MEDS: Sertraline 100 MG Tab (OWN SUPPLY) PO SCH (08:30)
[2020-08-26] MEDS: Metoprolol Succinate 25 MG Tab.ER (OWN SUPPLY) PO SCH (08:31)
[2020-08-26] MEDS: FUROSEMIDE 20 MG PO SCH ×2 (08:31→13:07)
[2020-08-26] MEDS: Acetaminophen 325 MG Tab PO SCH ×3 (08:32→19:45)
[2020-08-26] MEDS: Cholecalciferol (Vitamin D3) 10 MCG Tab PO SCH (08:32)
[2020-08-26] MEDS: Vitamin B Complex Tab PO SCH (08:33)
[2020-08-26] MEDS: Multivitamins with Iron/Calcium/Folic Acid/Minerals Tab PO SCH (08:33)
[2020-08-26] MEDS: Mineral Oil/Petrolatum,White Crm 454 GM Jar TOP SCH ×2 (08:33→19:46)
[2020-08-26] MEDS: Ferrous Sulfate 325 MG Tab PO SCH (08:33)
[2020-08-26] MEDS: Melatonin 3 MG Tab PO SCH (19:44)
[2020-08-26] MEDS: Gabapentin 300 MG Cap (OWN SUPPLY) PO SCH (19:44)
[2020-08-26] MEDS: WARFARIN 5 MG PO SCH (19:45)
[2020-08-26] MEDS: Famotidine 20 MG Tab PO SCH (19:45)
[2020-08-26] MEDS: ROPINIROLE 0.5 MG PO SCH (19:46)
[2020-08-27] MEDS: Lactobacillus Rhamnosus GG (Probiotic) Cap PO SCH (06:43)
[2020-08-27] MEDS: Omeprazole 20 MG Cap.CR PO SCH (06:43)
[2020-08-27] MEDS: Cholecalciferol (Vitamin D3) 10 MCG Tab PO SCH (07:53)
[2020-08-27] MEDS: Vitamin B Complex Tab PO SCH (07:54)
[2020-08-27] MEDS: Acetaminophen 325 MG Tab PO SCH ×3 (07:54→19:35)
[2020-08-27] MEDS: Multivitamins with Iron/Calcium/Folic Acid/Minerals Tab PO SCH (07:54)
[2020-08-27] MEDS: Metoprolol Succinate 25 MG Tab.ER (OWN SUPPLY) PO SCH (07:54)
[2020-08-27] MEDS: FUROSEMIDE 20 MG PO SCH ×2 (07:55→12:22)
[2020-08-27] MEDS: ISOSORBIDE MONONITRATE 30 MG PO SCH (07:55)
[2020-08-27] MEDS: Sertraline 100 MG Tab (OWN SUPPLY) PO SCH (07:55)
[2020-08-27] MEDS: BUSPIRONE 15 MG PO SCH ×3 (07:55→19:32)
[2020-08-27] MEDS: Gabapentin 100 MG Cap (OWN SUPPLY) PO SCH ×2 (07:56→12:22)
[2020-08-27] MEDS: Mineral Oil/Petrolatum,White Crm 454 GM Jar TOP SCH ×2 (07:56→19:33)
[2020-08-27] MEDS: WARFARIN 5 MG PO SCH (19:33)
[2020-08-27] MEDS: Melatonin 3 MG Tab PO SCH (19:33)
[2020-08-27] MEDS: Gabapentin 300 MG Cap (OWN SUPPLY) PO SCH (19:34)
[2020-08-27] MEDS: Famotidine 20 MG Tab PO SCH (19:34)
[2020-08-27] MEDS: ROPINIROLE 0.5 MG PO SCH (19:34)
[2020-08-28] MEDS: Lactobacillus Rhamnosus GG (Probiotic) Cap PO SCH (06:37)
[2020-08-28] MEDS: Omeprazole 20 MG Cap.CR PO SCH (06:37)
[2020-08-28] MEDS: BUSPIRONE 15 MG PO SCH ×3 (08:05→19:14)
[2020-08-28] MEDS: FUROSEMIDE 20 MG PO SCH ×2 (08:05→12:23)
[2020-08-28] MEDS: Gabapentin 100 MG Cap (OWN SUPPLY) PO SCH ×2 (08:05→12:22)
[2020-08-28] MEDS: Mineral Oil/Petrolatum,White Crm 454 GM Jar TOP SCH ×2 (08:06→19:16)
[2020-08-28] MEDS: ISOSORBIDE MONONITRATE 30 MG PO SCH (08:06)
[2020-08-28] MEDS: Metoprolol Succinate 25 MG Tab.ER (OWN SUPPLY) PO SCH (08:06)
[2020-08-28] MEDS: Sertraline 100 MG Tab (OWN SUPPLY) PO SCH (08:06)
[2020-08-28] MEDS: Acetaminophen 325 MG Tab PO SCH ×3 (08:07→19:17)
[2020-08-28] MEDS: Multivitamins with Iron/Calcium/Folic Acid/Minerals Tab PO SCH (08:07)
[2020-08-28] MEDS: Ferrous Sulfate 325 MG Tab PO SCH (08:07)
[2020-08-28] MEDS: Cholecalciferol (Vitamin D3) 10 MCG Tab PO SCH (08:07)
[2020-08-28] MEDS: Vitamin B Complex Tab PO SCH (08:07)
[2020-08-28] MEDS: WARFARIN 5 MG PO SCH (19:15)
[2020-08-28] MEDS: Melatonin 3 MG Tab PO SCH (19:15)
[2020-08-28] MEDS: ROPINIROLE 0.5 MG PO SCH (19:16)
[2020-08-28] MEDS: Gabapentin 300 MG Cap (OWN SUPPLY) PO SCH (19:16)
[2020-08-28] MEDS: Famotidine 20 MG Tab PO SCH (19:16)
[2020-08-29] MEDS: Omeprazole 20 MG Cap.CR PO SCH (06:27)
[2020-08-29] MEDS: Lactobacillus Rhamnosus GG (Probiotic) Cap PO SCH (06:27)
[2020-08-29] MEDS: Gabapentin 100 MG Cap (OWN SUPPLY) PO SCH ×2 (08:05→13:34)
[2020-08-29] MEDS: Mineral Oil/Petrolatum,White Crm 454 GM Jar TOP SCH ×2 (08:05→20:22)
[2020-08-29] MEDS: Cholecalciferol (Vitamin D3) 10 MCG Tab PO SCH (08:05)
[2020-08-29] MEDS: Vitamin B Complex Tab PO SCH (08:05)
[2020-08-29] MEDS: Multivitamins with Iron/Calcium/Folic Acid/Minerals Tab PO SCH (08:06)
[2020-08-29] MEDS: BUSPIRONE 15 MG PO SCH ×3 (08:06→20:21)
[2020-08-29] MEDS: Acetaminophen 325 MG Tab PO SCH ×3 (08:06→20:23)
[2020-08-29] MEDS: FUROSEMIDE 20 MG PO SCH ×2 (08:06→13:35)
[2020-08-29] MEDS: ISOSORBIDE MONONITRATE 30 MG PO SCH (08:06)
[2020-08-29] MEDS: Metoprolol Succinate 25 MG Tab.ER (OWN SUPPLY) PO SCH (08:07)
[2020-08-29] MEDS: Sertraline 100 MG Tab (OWN SUPPLY) PO SCH (08:07)
[2020-08-29] MEDS: WARFARIN 5 MG PO SCH (20:21)
[2020-08-29] MEDS: Melatonin 3 MG Tab PO SCH (20:21)
[2020-08-29] MEDS: Gabapentin 300 MG Cap (OWN SUPPLY) PO SCH (20:22)
[2020-08-29] MEDS: ROPINIROLE 0.5 MG PO SCH (20:22)
[2020-08-29] MEDS: Famotidine 20 MG Tab PO SCH (20:22)
[2020-08-30] MEDS: Omeprazole 20 MG Cap.CR PO SCH (06:08)
[2020-08-30] MEDS: Lactobacillus Rhamnosus GG (Probiotic) Cap PO SCH (06:08)
[2020-08-30] MEDS: Calcium Carbonate 750 MG Tab.Chew PO PRN (09:33)
[2020-08-30] MEDS: Gabapentin 100 MG Cap (OWN SUPPLY) PO SCH ×2 (09:33→14:10)
[2020-08-30] MEDS: Acetaminophen 325 MG Tab PO SCH ×3 (09:34→21:18)
[2020-08-30] MEDS: Vitamin B Complex Tab PO SCH (09:34)
[2020-08-30] MEDS: Cholecalciferol (Vitamin D3) 10 MCG Tab PO SCH (09:34)
[2020-08-30] MEDS: Multivitamins with Iron/Calcium/Folic Acid/Minerals Tab PO SCH (09:35)
[2020-08-30] MEDS: FUROSEMIDE 20 MG PO SCH ×2 (09:35→14:10)
[2020-08-30] MEDS: BUSPIRONE 15 MG PO SCH ×3 (09:35→21:19)
[2020-08-30] MEDS: Metoprolol Succinate 25 MG Tab.ER (OWN SUPPLY) PO SCH (09:35)
[2020-08-30] MEDS: Ferrous Sulfate 325 MG Tab PO SCH (09:35)
[2020-08-30] MEDS: ISOSORBIDE MONONITRATE 30 MG PO SCH (09:36)
[2020-08-30] MEDS: Sertraline 100 MG Tab (OWN SUPPLY) PO SCH (09:36)
[2020-08-30] MEDS: Mineral Oil/Petrolatum,White Crm 454 GM Jar TOP SCH ×2 (09:38→21:20)
[2020-08-30] MEDS: Phytonadione 100 MCG Tab PO SCH (14:10)
[2020-08-30] MEDS: Melatonin 3 MG Tab PO SCH (21:17)
[2020-08-30] MEDS: Famotidine 20 MG Tab PO SCH (21:17)
[2020-08-30] MEDS: ROPINIROLE 0.5 MG PO SCH (21:20)
[2020-08-30] MEDS: Gabapentin 300 MG Cap (OWN SUPPLY) PO SCH (21:21)
[2020-08-31] MEDS: Omeprazole 20 MG Cap.CR PO SCH (06:04)
[2020-08-31] MEDS: Lactobacillus Rhamnosus GG (Probiotic) Cap PO SCH (06:04)
--- NOTE | 2020-08-31 08:16 | PCM.SN.2 ---
- Free Text/Narrative Note: Paged by nursing regarding patient's RLE wound. Concern for developing cellulitis. Area of erythema marked 2 days ago, expanding past the border now. Slightly warm to the touch. Ulcer worsening. Upon evaluation the ulcer is deeper than before. Erythema has expanded below border of markings. Area slightly warm to the touch. Will treat with Keflex 500mg qid for 7 days.
[2020-08-31] MEDS: Sertraline 100 MG Tab (OWN SUPPLY) PO SCH (09:30)
[2020-08-31] MEDS: ISOSORBIDE MONONITRATE 30 MG PO SCH (09:31)
[2020-08-31] MEDS: Metoprolol Succinate 25 MG Tab.ER (OWN SUPPLY) PO SCH (09:32)
[2020-08-31] MEDS: FUROSEMIDE 20 MG PO SCH ×2 (09:32→14:42)
[2020-08-31] MEDS: BUSPIRONE 15 MG PO SCH ×3 (09:32→20:15)
[2020-08-31] MEDS: Vitamin B Complex Tab PO SCH (09:33)
[2020-08-31] MEDS: CEPHALEXIN 500 MG PO SCH ×3 (09:33→20:17)
[2020-08-31] MEDS: Multivitamins with Iron/Calcium/Folic Acid/Minerals Tab PO SCH (09:33)
[2020-08-31] MEDS: Cholecalciferol (Vitamin D3) 10 MCG Tab PO SCH (09:33)
[2020-08-31] MEDS: Phytonadione 100 MCG Tab PO SCH (09:34)
[2020-08-31] MEDS: Gabapentin 100 MG Cap (OWN SUPPLY) PO SCH ×2 (09:34→14:41)
[2020-08-31] MEDS: Acetaminophen 325 MG Tab PO SCH ×3 (09:34→20:14)
[2020-08-31] MEDS: Mineral Oil/Petrolatum,White Crm 454 GM Jar TOP SCH ×2 (09:35→20:18)
[2020-08-31] MEDS: Melatonin 3 MG Tab PO SCH (20:13)
[2020-08-31] MEDS: Famotidine 20 MG Tab PO SCH (20:13)
[2020-08-31] MEDS: ROPINIROLE 0.5 MG PO SCH (20:16)
[2020-08-31] MEDS: Gabapentin 300 MG Cap (OWN SUPPLY) PO SCH (20:17)
[2020-09-01] MEDS: CEPHALEXIN 500 MG PO SCH ×4 (01:00→20:43)
[2020-09-01] MEDS: Lactobacillus Rhamnosus GG (Probiotic) Cap PO SCH (06:38)
[2020-09-01] MEDS: Omeprazole 20 MG Cap.CR PO SCH (06:38)
[2020-09-01] MEDS: Gabapentin 100 MG Cap (OWN SUPPLY) PO SCH ×2 (09:05→13:35)
[2020-09-01] MEDS: BUSPIRONE 15 MG PO SCH ×3 (09:06→20:43)
[2020-09-01] MEDS: FUROSEMIDE 20 MG PO SCH ×2 (09:13→13:37)
[2020-09-01] MEDS: ISOSORBIDE MONONITRATE 30 MG PO SCH (09:13)
[2020-09-01] MEDS: Metoprolol Succinate 25 MG Tab.ER (OWN SUPPLY) PO SCH (09:13)
[2020-09-01] MEDS: Vitamin B Complex Tab PO SCH (09:14)
[2020-09-01] MEDS: Ferrous Sulfate 325 MG Tab PO SCH (09:14)
[2020-09-01] MEDS: Phytonadione 100 MCG Tab PO SCH (09:14)
[2020-09-01] MEDS: Acetaminophen 325 MG Tab PO SCH ×3 (09:14→20:41)
[2020-09-01] MEDS: Multivitamins with Iron/Calcium/Folic Acid/Minerals Tab PO SCH (09:14)
[2020-09-01] MEDS: Sertraline 100 MG Tab (OWN SUPPLY) PO SCH (09:14)
[2020-09-01] MEDS: Calcium Carbonate 750 MG Tab.Chew PO PRN (09:15)
[2020-09-01] MEDS: Cholecalciferol (Vitamin D3) 25 MCG Tab PO SCH (13:37)
[2020-09-01] MEDS: Mineral Oil/Petrolatum,White Crm 454 GM Jar TOP SCH ×2 (13:38→20:43)
[2020-09-01] MEDS: Cholecalciferol (Vitamin D3) 10 MCG Tab PO SCH (13:53)
[2020-09-01] MEDS: Famotidine 20 MG Tab PO SCH (20:40)
[2020-09-01] MEDS: Melatonin 3 MG Tab PO SCH (20:40)
[2020-09-01] MEDS: ROPINIROLE 0.5 MG PO SCH (20:43)
[2020-09-01] MEDS: WARFARIN 5 MG PO SCH (20:43)
[2020-09-01] MEDS: Gabapentin 300 MG Cap (OWN SUPPLY) PO SCH (20:44)
[2020-09-01] MEDS ORDERED: Lactobacillus Rhamnosus GG (Probiotic) Cap PO SCH (22:00)
[2020-09-01] MEDS: PROBIOTIC GUMMIES PO SCH (22:05)
[2020-09-02] MEDS: Omeprazole 20 MG Cap.CR PO SCH (06:29)
[2020-09-02] MEDS: ISOSORBIDE MONONITRATE 30 MG PO SCH (08:49)
[2020-09-02] MEDS: Metoprolol Succinate 25 MG Tab.ER (OWN SUPPLY) PO SCH (08:49)
[2020-09-02] MEDS: BUSPIRONE 15 MG PO SCH ×3 (08:50→19:33)
[2020-09-02] MEDS: FUROSEMIDE 20 MG PO SCH ×2 (08:50→13:22)
[2020-09-02] MEDS: Sertraline 100 MG Tab (OWN SUPPLY) PO SCH (08:50)
[2020-09-02] MEDS: CEPHALEXIN 500 MG PO SCH ×3 (08:50→19:32)
[2020-09-02] MEDS: Cholecalciferol (Vitamin D3) 25 MCG Tab PO SCH (08:51)
[2020-09-02] MEDS: Gabapentin 100 MG Cap (OWN SUPPLY) PO SCH ×2 (08:51→13:22)
[2020-09-02] MEDS: Vitamin B Complex Tab PO SCH (08:51)
[2020-09-02] MEDS: Acetaminophen 325 MG Tab PO SCH ×3 (08:51→19:30)
[2020-09-02] MEDS: Multivitamins with Iron/Calcium/Folic Acid/Minerals Tab PO SCH (08:51)
[2020-09-02] MEDS: Phytonadione 100 MCG Tab PO SCH (08:51)
[2020-09-02] MEDS: Mineral Oil/Petrolatum,White Crm 454 GM Jar TOP SCH ×2 (08:52→19:30)
[2020-09-02] MEDS: PROBIOTIC GUMMIES PO SCH ×2 (10:35→21:54)
[2020-09-02] MEDS: Famotidine 20 MG Tab PO SCH (19:29)
[2020-09-02] MEDS: Gabapentin 300 MG Cap (OWN SUPPLY) PO SCH (19:29)
[2020-09-02] MEDS: Melatonin 3 MG Tab PO SCH (19:30)
[2020-09-02] MEDS: ROPINIROLE 0.5 MG PO SCH (19:31)
[2020-09-02] MEDS: WARFARIN 5 MG PO SCH (21:55)
[2020-09-03] MEDS: Omeprazole 20 MG Cap.CR PO SCH (06:04)
[2020-09-03] MEDS: CEPHALEXIN 500 MG PO SCH (08:06)
[2020-09-03] MEDS: Gabapentin 100 MG Cap (OWN SUPPLY) PO SCH ×2 (08:06→12:32)
[2020-09-03] MEDS: ISOSORBIDE MONONITRATE 30 MG PO SCH (08:06)
[2020-09-03] MEDS: Acetaminophen 325 MG Tab PO SCH ×3 (08:07→19:50)
[2020-09-03] MEDS: Sertraline 100 MG Tab (OWN SUPPLY) PO SCH (08:07)
[2020-09-03] MEDS: Mineral Oil/Petrolatum,White Crm 454 GM Jar TOP SCH ×2 (08:08→19:53)
[2020-09-03] MEDS: Multivitamins with Iron/Calcium/Folic Acid/Minerals Tab PO SCH (08:08)
[2020-09-03] MEDS: Phytonadione 100 MCG Tab PO SCH (08:08)
[2020-09-03] MEDS: Cholecalciferol (Vitamin D3) 25 MCG Tab PO SCH (08:08)
[2020-09-03] MEDS: Metoprolol Succinate 25 MG Tab.ER (OWN SUPPLY) PO SCH (08:08)
[2020-09-03] MEDS: Vitamin B Complex Tab PO SCH (08:08)
[2020-09-03] MEDS: Ferrous Sulfate 325 MG Tab PO SCH (08:08)
[2020-09-03] MEDS: FUROSEMIDE 20 MG PO SCH ×2 (08:09→12:32)
[2020-09-03] MEDS: BUSPIRONE 15 MG PO SCH ×3 (08:09→19:53)
--- NOTE | 2020-09-03 08:17 | PCM.SN.2 ---
- Free Text/Narrative Note: Wound culture has returned with pseudomonas, sensitivities back as well. Will D/C kelfex and switch to Cipro 750mg BID for 10 days. Nursing encouraged to clean the wound well daily.
[2020-09-03] MEDS: CIPROFLOXACIN 500 MG PO SCH ×2 (09:55→19:52)
[2020-09-03] MEDS: PROBIOTIC GUMMIES PO SCH ×2 (10:31→21:52)
[2020-09-03] MEDS: Gabapentin 300 MG Cap (OWN SUPPLY) PO SCH (19:49)
[2020-09-03] MEDS: Famotidine 20 MG Tab PO SCH (19:50)
[2020-09-03] MEDS: Melatonin 3 MG Tab PO SCH (19:50)
[2020-09-03] MEDS: ROPINIROLE 0.5 MG PO SCH (19:51)
[2020-09-03] MEDS: WARFARIN 5 MG PO SCH (19:52)
[2020-09-03] MEDS: Calcium Carbonate 750 MG Tab.Chew PO PRN (19:56)
[2020-09-04] MEDS: Omeprazole 20 MG Cap.CR PO SCH (06:32)
[2020-09-04] MEDS: CIPROFLOXACIN 500 MG PO SCH ×2 (06:33→19:53)
[2020-09-04] MEDS: Gabapentin 100 MG Cap (OWN SUPPLY) PO SCH ×2 (08:04→12:11)
[2020-09-04] MEDS: BUSPIRONE 15 MG PO SCH ×3 (08:05→19:52)
[2020-09-04] MEDS: Metoprolol Succinate 25 MG Tab.ER (OWN SUPPLY) PO SCH (08:06)
[2020-09-04] MEDS: ISOSORBIDE MONONITRATE 30 MG PO SCH (08:06)
[2020-09-04] MEDS: FUROSEMIDE 20 MG PO SCH ×2 (08:06→12:10)
[2020-09-04] MEDS: Cholecalciferol (Vitamin D3) 25 MCG Tab PO SCH (08:07)
[2020-09-04] MEDS: Multivitamins with Iron/Calcium/Folic Acid/Minerals Tab PO SCH (08:07)
[2020-09-04] MEDS: Sertraline 100 MG Tab (OWN SUPPLY) PO SCH (08:07)
[2020-09-04] MEDS: Vitamin B Complex Tab PO SCH (08:07)
[2020-09-04] MEDS: Phytonadione 100 MCG Tab PO SCH (08:08)
[2020-09-04] MEDS: Acetaminophen 325 MG Tab PO SCH ×3 (08:08→19:55)
[2020-09-04] MEDS: Mineral Oil/Petrolatum,White Crm 454 GM Jar TOP SCH ×2 (08:10→19:57)
[2020-09-04] MEDS: PROBIOTIC GUMMIES PO SCH ×2 (09:57→21:37)
[2020-09-04] MEDS: Calcium Carbonate 750 MG Tab.Chew PO PRN (19:51)
[2020-09-04] MEDS: WARFARIN 5 MG PO SCH (19:52)
[2020-09-04] MEDS: ROPINIROLE 0.5 MG PO SCH (19:52)
[2020-09-04] MEDS: Gabapentin 300 MG Cap (OWN SUPPLY) PO SCH (19:53)
[2020-09-04] MEDS: Melatonin 3 MG Tab PO SCH (19:55)
[2020-09-04] MEDS: Famotidine 20 MG Tab PO SCH (19:55)
[2020-09-05] MEDS: Omeprazole 20 MG Cap.CR PO SCH (06:13)
[2020-09-05] MEDS: CIPROFLOXACIN 500 MG PO SCH ×2 (06:13→19:47)
[2020-09-05] MEDS: Gabapentin 100 MG Cap (OWN SUPPLY) PO SCH ×2 (08:08→12:04)
[2020-09-05] MEDS: Calcium Carbonate 750 MG Tab.Chew PO PRN (08:10)
[2020-09-05] MEDS: Metoprolol Succinate 25 MG Tab.ER (OWN SUPPLY) PO SCH (08:11)
[2020-09-05] MEDS: FUROSEMIDE 20 MG PO SCH ×2 (08:11→12:05)
[2020-09-05] MEDS: BUSPIRONE 15 MG PO SCH ×3 (08:11→19:52)
[2020-09-05] MEDS: ISOSORBIDE MONONITRATE 30 MG PO SCH (08:12)
[2020-09-05] MEDS: Sertraline 100 MG Tab (OWN SUPPLY) PO SCH (08:12)
[2020-09-05] MEDS: Cholecalciferol (Vitamin D3) 25 MCG Tab PO SCH (08:12)
[2020-09-05] MEDS: Ferrous Sulfate 325 MG Tab PO SCH (08:12)
[2020-09-05] MEDS: Vitamin B Complex Tab PO SCH (08:13)
[2020-09-05] MEDS: Acetaminophen 325 MG Tab PO SCH ×3 (08:13→19:47)
[2020-09-05] MEDS: Multivitamins with Iron/Calcium/Folic Acid/Minerals Tab PO SCH (08:13)
[2020-09-05] MEDS: Phytonadione 100 MCG Tab PO SCH (08:13)
[2020-09-05] MEDS: Mineral Oil/Petrolatum,White Crm 454 GM Jar TOP SCH ×2 (08:14→19:48)
[2020-09-05] MEDS: PROBIOTIC GUMMIES PO SCH ×2 (10:39→22:15)
[2020-09-05] MEDS: ROPINIROLE 0.5 MG PO SCH (19:46)
[2020-09-05] MEDS: WARFARIN 5 MG PO SCH (19:46)
[2020-09-05] MEDS: Gabapentin 300 MG Cap (OWN SUPPLY) PO SCH (19:47)
[2020-09-05] MEDS: Melatonin 3 MG Tab PO SCH (19:47)
[2020-09-05] MEDS: Famotidine 20 MG Tab PO SCH (19:47)
[2020-09-06] MEDS: Omeprazole 20 MG Cap.CR PO SCH (06:16)
[2020-09-06] MEDS: CIPROFLOXACIN 500 MG PO SCH ×2 (06:16→19:32)
[2020-09-06] MEDS: BUSPIRONE 15 MG PO SCH ×3 (07:52→19:32)
[2020-09-06] MEDS: Gabapentin 100 MG Cap (OWN SUPPLY) PO SCH ×2 (07:52→12:23)
[2020-09-06] MEDS: Calcium Carbonate 750 MG Tab.Chew PO PRN ×2 (07:52→19:32)
[2020-09-06] MEDS: Metoprolol Succinate 25 MG Tab.ER (OWN SUPPLY) PO SCH (07:53)
[2020-09-06] MEDS: FUROSEMIDE 20 MG PO SCH ×2 (07:53→12:23)
[2020-09-06] MEDS: Sertraline 100 MG Tab (OWN SUPPLY) PO SCH (07:54)
[2020-09-06] MEDS: ISOSORBIDE MONONITRATE 30 MG PO SCH (07:54)
[2020-09-06] MEDS: Acetaminophen 325 MG Tab PO SCH ×3 (07:55→19:33)
[2020-09-06] MEDS: Cholecalciferol (Vitamin D3) 25 MCG Tab PO SCH (07:55)
[2020-09-06] MEDS: Phytonadione 100 MCG Tab PO SCH (07:55)
[2020-09-06] MEDS: Multivitamins with Iron/Calcium/Folic Acid/Minerals Tab PO SCH (07:55)
[2020-09-06] MEDS: Mineral Oil/Petrolatum,White Crm 454 GM Jar TOP SCH ×2 (07:55→19:34)
[2020-09-06] MEDS: Vitamin B Complex Tab PO SCH (07:55)
[2020-09-06] MEDS: PROBIOTIC GUMMIES PO SCH ×2 (09:25→21:11)
[2020-09-06] MEDS: ROPINIROLE 0.5 MG PO SCH (19:32)
[2020-09-06] MEDS: WARFARIN 5 MG PO SCH (19:32)
[2020-09-06] MEDS: Gabapentin 300 MG Cap (OWN SUPPLY) PO SCH (19:32)
[2020-09-06] MEDS: Melatonin 3 MG Tab PO SCH (19:33)
[2020-09-06] MEDS: Famotidine 20 MG Tab PO SCH (19:33)
[2020-09-07] MEDS: CIPROFLOXACIN 500 MG PO SCH ×2 (06:34→20:04)
[2020-09-07] MEDS: Omeprazole 20 MG Cap.CR PO SCH (06:34)
[2020-09-07] MEDS: FUROSEMIDE 20 MG PO SCH ×2 (08:23→12:41)
[2020-09-07] MEDS: BUSPIRONE 15 MG PO SCH ×3 (08:23→20:01)
[2020-09-07] MEDS: Acetaminophen 325 MG Tab PO SCH ×3 (08:23→20:02)
[2020-09-07] MEDS: Multivitamins with Iron/Calcium/Folic Acid/Minerals Tab PO SCH (08:24)
[2020-09-07] MEDS: Vitamin B Complex Tab PO SCH (08:24)
[2020-09-07] MEDS: Cholecalciferol (Vitamin D3) 25 MCG Tab PO SCH (08:24)
[2020-09-07] MEDS: Ferrous Sulfate 325 MG Tab PO SCH (08:24)
[2020-09-07] MEDS: ISOSORBIDE MONONITRATE 30 MG PO SCH (08:25)
[2020-09-07] MEDS: Metoprolol Succinate 25 MG Tab.ER (OWN SUPPLY) PO SCH (08:25)
[2020-09-07] MEDS: Gabapentin 100 MG Cap (OWN SUPPLY) PO SCH ×2 (08:26→12:40)
[2020-09-07] MEDS: Sertraline 100 MG Tab (OWN SUPPLY) PO SCH (08:26)
[2020-09-07] MEDS: Mineral Oil/Petrolatum,White Crm 454 GM Jar TOP SCH ×2 (08:28→20:03)
[2020-09-07] MEDS: Phytonadione 100 MCG Tab PO SCH (08:28)
[2020-09-07] MEDS: PROBIOTIC GUMMIES PO SCH ×2 (10:44→22:03)
[2020-09-07] MEDS: ROPINIROLE 0.5 MG PO SCH (20:00)
[2020-09-07] MEDS: Gabapentin 300 MG Cap (OWN SUPPLY) PO SCH (20:00)
[2020-09-07] MEDS: WARFARIN 5 MG PO SCH (20:01)
[2020-09-07] MEDS: Famotidine 20 MG Tab PO SCH (20:02)
[2020-09-07] MEDS: Melatonin 3 MG Tab PO SCH (20:02)
[2020-09-08] MEDS: CIPROFLOXACIN 500 MG PO SCH ×2 (06:10→19:27)
[2020-09-08] MEDS: Omeprazole 20 MG Cap.CR PO SCH (06:10)
[2020-09-08] MEDS: Acetaminophen 325 MG Tab PO SCH ×3 (08:02→19:28)
[2020-09-08] MEDS: Vitamin B Complex Tab PO SCH (08:03)
[2020-09-08] MEDS: Cholecalciferol (Vitamin D3) 25 MCG Tab PO SCH (08:03)
[2020-09-08] MEDS: Multivitamins with Iron/Calcium/Folic Acid/Minerals Tab PO SCH (08:03)
[2020-09-08] MEDS: Phytonadione 100 MCG Tab PO SCH (08:03)
[2020-09-08] MEDS: ISOSORBIDE MONONITRATE 30 MG PO SCH (08:04)
[2020-09-08] MEDS: Metoprolol Succinate 25 MG Tab.ER (OWN SUPPLY) PO SCH (08:04)
[2020-09-08] MEDS: Gabapentin 100 MG Cap (OWN SUPPLY) PO SCH ×2 (08:05→13:14)
[2020-09-08] MEDS: Mineral Oil/Petrolatum,White Crm 454 GM Jar TOP SCH ×2 (08:05→19:29)
[2020-09-08] MEDS: Sertraline 100 MG Tab (OWN SUPPLY) PO SCH (08:05)
[2020-09-08] MEDS: FUROSEMIDE 20 MG PO SCH ×2 (08:06→13:14)
[2020-09-08] MEDS: BUSPIRONE 15 MG PO SCH ×3 (08:06→19:27)
[2020-09-08] MEDS: PROBIOTIC GUMMIES PO SCH ×2 (11:05→21:30)
[2020-09-08] MEDS: Gabapentin 300 MG Cap (OWN SUPPLY) PO SCH (19:26)
[2020-09-08] MEDS: ROPINIROLE 0.5 MG PO SCH (19:26)
[2020-09-08] MEDS: WARFARIN 5 MG PO SCH (19:26)
[2020-09-08] MEDS: Melatonin 3 MG Tab PO SCH (19:27)
[2020-09-08] MEDS: Famotidine 20 MG Tab PO SCH (19:28)
[2020-09-09] MEDS: CIPROFLOXACIN 500 MG PO SCH ×2 (06:40→19:30)
[2020-09-09] MEDS: Omeprazole 20 MG Cap.CR PO SCH (06:40)
[2020-09-09] MEDS: Vitamin B Complex Tab PO SCH (08:13)
[2020-09-09] MEDS: Multivitamins with Iron/Calcium/Folic Acid/Minerals Tab PO SCH (08:13)
[2020-09-09] MEDS: Phytonadione 100 MCG Tab PO SCH (08:13)
[2020-09-09] MEDS: Acetaminophen 325 MG Tab PO SCH ×3 (08:13→19:32)
[2020-09-09] MEDS: Cholecalciferol (Vitamin D3) 25 MCG Tab PO SCH (08:13)
[2020-09-09] MEDS: Ferrous Sulfate 325 MG Tab PO SCH (08:13)
[2020-09-09] MEDS: ISOSORBIDE MONONITRATE 30 MG PO SCH (08:14)
[2020-09-09] MEDS: Metoprolol Succinate 25 MG Tab.ER (OWN SUPPLY) PO SCH (08:14)
[2020-09-09] MEDS: FUROSEMIDE 20 MG PO SCH ×2 (08:14→13:00)
[2020-09-09] MEDS: Sertraline 100 MG Tab (OWN SUPPLY) PO SCH (08:14)
[2020-09-09] MEDS: BUSPIRONE 15 MG PO SCH ×3 (08:14→19:31)
[2020-09-09] MEDS: Gabapentin 100 MG Cap (OWN SUPPLY) PO SCH ×2 (08:15→13:00)
[2020-09-09] MEDS: Mineral Oil/Petrolatum,White Crm 454 GM Jar TOP SCH ×2 (08:17→19:33)
[2020-09-09] MEDS ORDERED: WARFARIN 5 MG PO ONE (10:00)
[2020-09-09] MEDS: PROBIOTIC GUMMIES PO SCH ×2 (11:11→21:25)
[2020-09-09] MEDS: Gabapentin 300 MG Cap (OWN SUPPLY) PO SCH (19:30)
[2020-09-09] MEDS: WARFARIN 5 MG PO SCH (19:30)
[2020-09-09] MEDS: ROPINIROLE 0.5 MG PO SCH (19:32)
[2020-09-09] MEDS: Famotidine 20 MG Tab PO SCH (19:32)
[2020-09-09] MEDS: Melatonin 3 MG Tab PO SCH (19:32)
[2020-09-10] MEDS: Omeprazole 20 MG Cap.CR PO SCH (06:08)
[2020-09-10] MEDS: CIPROFLOXACIN 500 MG PO SCH ×2 (06:08→19:41)
[2020-09-10] MEDS: Sertraline 100 MG Tab (OWN SUPPLY) PO SCH (07:50)
[2020-09-10] MEDS: Mineral Oil/Petrolatum,White Crm 454 GM Jar TOP SCH ×2 (07:50→19:42)
[2020-09-10] MEDS: FUROSEMIDE 20 MG PO SCH ×2 (07:51→12:30)
[2020-09-10] MEDS: Metoprolol Succinate 25 MG Tab.ER (OWN SUPPLY) PO SCH (07:51)
[2020-09-10] MEDS: Calcium Carbonate 750 MG Tab.Chew PO PRN (07:51)
[2020-09-10] MEDS: ISOSORBIDE MONONITRATE 30 MG PO SCH (07:52)
[2020-09-10] MEDS: Acetaminophen 325 MG Tab PO SCH ×3 (07:52→19:43)
[2020-09-10] MEDS: Multivitamins with Iron/Calcium/Folic Acid/Minerals Tab PO SCH (07:52)
[2020-09-10] MEDS: Vitamin B Complex Tab PO SCH (07:53)
[2020-09-10] MEDS: Phytonadione 100 MCG Tab PO SCH (07:53)
[2020-09-10] MEDS: Cholecalciferol (Vitamin D3) 25 MCG Tab PO SCH (07:53)
[2020-09-10] MEDS: Gabapentin 100 MG Cap (OWN SUPPLY) PO SCH ×2 (07:54→12:29)
[2020-09-10] MEDS: BUSPIRONE 15 MG PO SCH ×3 (07:56→19:41)
[2020-09-10] MEDS: PROBIOTIC GUMMIES PO SCH ×2 (09:49→21:27)
[2020-09-10] MEDS: WARFARIN 5 MG PO SCH (19:41)
[2020-09-10] MEDS: Gabapentin 300 MG Cap (OWN SUPPLY) PO SCH (19:42)
[2020-09-10] MEDS: Melatonin 3 MG Tab PO SCH (19:42)
[2020-09-10] MEDS: Famotidine 20 MG Tab PO SCH (19:42)
[2020-09-10] MEDS: ROPINIROLE 0.5 MG PO SCH (19:42)
[2020-09-11] MEDS: CIPROFLOXACIN 500 MG PO SCH ×2 (06:05→20:21)
[2020-09-11] MEDS: Omeprazole 20 MG Cap.CR PO SCH (06:06)
[2020-09-11] MEDS: Gabapentin 100 MG Cap (OWN SUPPLY) PO SCH ×2 (07:36→12:12)
[2020-09-11] MEDS: BUSPIRONE 15 MG PO SCH ×3 (07:36→20:20)
[2020-09-11] MEDS: Metoprolol Succinate 25 MG Tab.ER (OWN SUPPLY) PO SCH (07:37)
[2020-09-11] MEDS: FUROSEMIDE 20 MG PO SCH ×2 (07:37→12:12)
[2020-09-11] MEDS: Sertraline 100 MG Tab (OWN SUPPLY) PO SCH (07:37)
[2020-09-11] MEDS: Cholecalciferol (Vitamin D3) 25 MCG Tab PO SCH (07:38)
[2020-09-11] MEDS: Mineral Oil/Petrolatum,White Crm 454 GM Jar TOP SCH ×2 (07:38→20:21)
[2020-09-11] MEDS: Acetaminophen 325 MG Tab PO SCH ×3 (07:38→20:18)
[2020-09-11] MEDS: Ferrous Sulfate 325 MG Tab PO SCH (07:38)
[2020-09-11] MEDS: Phytonadione 100 MCG Tab PO SCH (07:38)
[2020-09-11] MEDS: Multivitamins with Iron/Calcium/Folic Acid/Minerals Tab PO SCH (07:38)
[2020-09-11] MEDS: Vitamin B Complex Tab PO SCH (07:38)
[2020-09-11] MEDS: ISOSORBIDE MONONITRATE 30 MG PO SCH (07:39)
[2020-09-11] MEDS: PROBIOTIC GUMMIES PO SCH ×2 (09:52→22:05)
[2020-09-11] MEDS: Melatonin 3 MG Tab PO SCH (20:19)
[2020-09-11] MEDS: Gabapentin 300 MG Cap (OWN SUPPLY) PO SCH (20:19)
[2020-09-11] MEDS: Famotidine 20 MG Tab PO SCH (20:19)
[2020-09-11] MEDS: WARFARIN 5 MG PO SCH (20:20)
[2020-09-11] MEDS: ROPINIROLE 0.5 MG PO SCH (20:20)
[2020-09-12] MEDS: Omeprazole 20 MG Cap.CR PO SCH (06:03)
[2020-09-12] MEDS: CIPROFLOXACIN 500 MG PO SCH ×2 (06:04→19:44)
[2020-09-12] MEDS: Gabapentin 100 MG Cap (OWN SUPPLY) PO SCH ×2 (08:08→12:25)
[2020-09-12] MEDS: Acetaminophen 325 MG Tab PO SCH ×3 (08:12→19:45)
[2020-09-12] MEDS: Phytonadione 100 MCG Tab PO SCH (08:13)
[2020-09-12] MEDS: FUROSEMIDE 20 MG PO SCH ×2 (08:13→12:26)
[2020-09-12] MEDS: BUSPIRONE 15 MG PO SCH ×3 (08:13→19:43)
[2020-09-12] MEDS: Multivitamins with Iron/Calcium/Folic Acid/Minerals Tab PO SCH (08:13)
[2020-09-12] MEDS: Cholecalciferol (Vitamin D3) 25 MCG Tab PO SCH (08:13)
[2020-09-12] MEDS: Vitamin B Complex Tab PO SCH (08:13)
[2020-09-12] MEDS: Metoprolol Succinate 25 MG Tab.ER (OWN SUPPLY) PO SCH (08:14)
[2020-09-12] MEDS: ISOSORBIDE MONONITRATE 30 MG PO SCH (08:14)
[2020-09-12] MEDS: Sertraline 100 MG Tab (OWN SUPPLY) PO SCH (08:14)
[2020-09-12] MEDS: Mineral Oil/Petrolatum,White Crm 454 GM Jar TOP SCH ×2 (08:15→19:48)
[2020-09-12] MEDS: PROBIOTIC GUMMIES PO SCH ×2 (10:44→22:10)
[2020-09-12] MEDS: Gabapentin 300 MG Cap (OWN SUPPLY) PO SCH (19:41)
[2020-09-12] MEDS: WARFARIN 5 MG PO SCH (19:43)
[2020-09-12] MEDS: ROPINIROLE 0.5 MG PO SCH (19:44)
[2020-09-12] MEDS: Melatonin 3 MG Tab PO SCH (19:45)
[2020-09-12] MEDS: Famotidine 20 MG Tab PO SCH (19:45)
[2020-09-13] MEDS: Omeprazole 20 MG Cap.CR PO SCH (06:17)
[2020-09-13] MEDS: Sertraline 100 MG Tab (OWN SUPPLY) PO SCH (07:51)
[2020-09-13] MEDS: ISOSORBIDE MONONITRATE 30 MG PO SCH (07:51)
[2020-09-13] MEDS: FUROSEMIDE 20 MG PO SCH ×2 (07:51→13:03)
[2020-09-13] MEDS: BUSPIRONE 15 MG PO SCH ×3 (07:51→19:24)
[2020-09-13] MEDS: Metoprolol Succinate 25 MG Tab.ER (OWN SUPPLY) PO SCH (07:52)
[2020-09-13] MEDS: Gabapentin 100 MG Cap (OWN SUPPLY) PO SCH ×2 (07:52→13:03)
[2020-09-13] MEDS: Phytonadione 100 MCG Tab PO SCH (07:53)
[2020-09-13] MEDS: Acetaminophen 325 MG Tab PO SCH ×3 (07:54→19:24)
[2020-09-13] MEDS: Ferrous Sulfate 325 MG Tab PO SCH (07:54)
[2020-09-13] MEDS: Multivitamins with Iron/Calcium/Folic Acid/Minerals Tab PO SCH (07:54)
[2020-09-13] MEDS: Vitamin B Complex Tab PO SCH (07:54)
[2020-09-13] MEDS: Cholecalciferol (Vitamin D3) 25 MCG Tab PO SCH (07:54)
[2020-09-13] MEDS: Mineral Oil/Petrolatum,White Crm 454 GM Jar TOP SCH ×2 (07:56→19:26)
[2020-09-13] MEDS: PROBIOTIC GUMMIES PO SCH ×2 (10:40→22:00)
[2020-09-13] MEDS ORDERED: WARFARIN 5 MG PO ONE (15:00)
[2020-09-13] MEDS: Melatonin 3 MG Tab PO SCH (19:24)
[2020-09-13] MEDS: WARFARIN 5 MG PO SCH (19:25)
[2020-09-13] MEDS: ROPINIROLE 0.5 MG PO SCH (19:25)
[2020-09-13] MEDS: Gabapentin 300 MG Cap (OWN SUPPLY) PO SCH (19:30)
[2020-09-13] MEDS: Famotidine 20 MG Tab PO SCH (22:00)
[2020-09-14] MEDS: Omeprazole 20 MG Cap.CR PO SCH (06:49)
[2020-09-14] MEDS: Gabapentin 100 MG Cap (OWN SUPPLY) PO SCH ×2 (08:06→13:26)
[2020-09-14] MEDS: ISOSORBIDE MONONITRATE 30 MG PO SCH (08:07)
[2020-09-14] MEDS: BUSPIRONE 15 MG PO SCH ×3 (08:07→19:35)
[2020-09-14] MEDS: Sertraline 100 MG Tab (OWN SUPPLY) PO SCH (08:12)
[2020-09-14] MEDS: Metoprolol Succinate 25 MG Tab.ER (OWN SUPPLY) PO SCH (08:12)
[2020-09-14] MEDS: Cholecalciferol (Vitamin D3) 25 MCG Tab PO SCH (08:13)
[2020-09-14] MEDS: Multivitamins with Iron/Calcium/Folic Acid/Minerals Tab PO SCH (08:13)
[2020-09-14] MEDS: FUROSEMIDE 20 MG PO SCH ×2 (08:13→13:26)
[2020-09-14] MEDS: Acetaminophen 325 MG Tab PO SCH ×3 (08:13→19:34)
[2020-09-14] MEDS: Vitamin B Complex Tab PO SCH (08:13)
[2020-09-14] MEDS: Phytonadione 100 MCG Tab PO SCH (08:13)
[2020-09-14] MEDS: Mineral Oil/Petrolatum,White Crm 454 GM Jar TOP SCH ×2 (08:14→19:34)
[2020-09-14] MEDS: PROBIOTIC GUMMIES PO SCH (13:25)
[2020-09-14] MEDS: Melatonin 3 MG Tab PO SCH (19:33)
[2020-09-14] MEDS: Famotidine 20 MG Tab PO SCH (19:33)
[2020-09-14] MEDS: Gabapentin 300 MG Cap (OWN SUPPLY) PO SCH (19:34)
[2020-09-14] MEDS: ROPINIROLE 0.5 MG PO SCH (19:35)
[2020-09-14] MEDS: WARFARIN 5 MG PO SCH (19:35)
[2020-09-15] MEDS: PROBIOTIC GUMMIES PO SCH ×3 (02:40→21:32)
[2020-09-15] MEDS: Omeprazole 20 MG Cap.CR PO SCH (06:05)
[2020-09-15] MEDS: Gabapentin 100 MG Cap (OWN SUPPLY) PO SCH ×2 (08:14→13:08)
[2020-09-15] MEDS: ISOSORBIDE MONONITRATE 30 MG PO SCH (08:15)
[2020-09-15] MEDS: FUROSEMIDE 20 MG PO SCH ×2 (08:15→13:08)
[2020-09-15] MEDS: BUSPIRONE 15 MG PO SCH ×3 (08:15→19:13)
[2020-09-15] MEDS: Metoprolol Succinate 25 MG Tab.ER (OWN SUPPLY) PO SCH (08:15)
[2020-09-15] MEDS: Sertraline 100 MG Tab (OWN SUPPLY) PO SCH (08:16)
[2020-09-15] MEDS: Acetaminophen 325 MG Tab PO SCH ×3 (08:16→19:12)
[2020-09-15] MEDS: Cholecalciferol (Vitamin D3) 25 MCG Tab PO SCH (08:16)
[2020-09-15] MEDS: Multivitamins with Iron/Calcium/Folic Acid/Minerals Tab PO SCH (08:16)
[2020-09-15] MEDS: Mineral Oil/Petrolatum,White Crm 454 GM Jar TOP SCH ×2 (08:17→19:13)
[2020-09-15] MEDS: Ferrous Sulfate 325 MG Tab PO SCH (08:17)
[2020-09-15] MEDS: Vitamin B Complex Tab PO SCH (08:17)
[2020-09-15] MEDS: Phytonadione 100 MCG Tab PO SCH (08:17)
[2020-09-15] MEDS: Gabapentin 300 MG Cap (OWN SUPPLY) PO SCH (19:10)
[2020-09-15] MEDS: ROPINIROLE 0.5 MG PO SCH (19:11)
[2020-09-15] MEDS: WARFARIN 5 MG PO SCH (19:11)
[2020-09-15] MEDS: Melatonin 3 MG Tab PO SCH (19:12)
[2020-09-15] MEDS: Famotidine 20 MG Tab PO SCH (19:12)
[2020-09-16] MEDS: Omeprazole 20 MG Cap.CR PO SCH (06:07)
[2020-09-16] MEDS: Calcium Carbonate 750 MG Tab.Chew PO PRN (07:49)
[2020-09-16] MEDS: FUROSEMIDE 20 MG PO SCH ×2 (07:50→12:18)
[2020-09-16] MEDS: Gabapentin 100 MG Cap (OWN SUPPLY) PO SCH ×2 (07:50→12:15)
[2020-09-16] MEDS: BUSPIRONE 15 MG PO SCH ×3 (07:50→20:39)
[2020-09-16] MEDS: ISOSORBIDE MONONITRATE 30 MG PO SCH (07:51)
[2020-09-16] MEDS: Sertraline 100 MG Tab (OWN SUPPLY) PO SCH (07:51)
[2020-09-16] MEDS: Metoprolol Succinate 25 MG Tab.ER (OWN SUPPLY) PO SCH (07:51)
[2020-09-16] MEDS: Acetaminophen 325 MG Tab PO SCH ×3 (07:52→20:39)
[2020-09-16] MEDS: Phytonadione 100 MCG Tab PO SCH (07:52)
[2020-09-16] MEDS: Cholecalciferol (Vitamin D3) 25 MCG Tab PO SCH (07:52)
[2020-09-16] MEDS: Vitamin B Complex Tab PO SCH (07:52)
[2020-09-16] MEDS: Multivitamins with Iron/Calcium/Folic Acid/Minerals Tab PO SCH (07:52)
[2020-09-16] MEDS: Mineral Oil/Petrolatum,White Crm 454 GM Jar TOP SCH ×2 (07:54→20:42)
[2020-09-16] MEDS: PROBIOTIC GUMMIES PO SCH ×2 (10:51→22:39)
[2020-09-16] MEDS: WARFARIN 5 MG PO SCH (20:39)
[2020-09-16] MEDS: Famotidine 20 MG Tab PO SCH (20:39)
[2020-09-16] MEDS: Melatonin 3 MG Tab PO SCH (20:39)
[2020-09-16] MEDS: ROPINIROLE 0.5 MG PO SCH (20:39)
[2020-09-16] MEDS: Gabapentin 300 MG Cap (OWN SUPPLY) PO SCH (20:40)
[2020-09-17] MEDS: Omeprazole 20 MG Cap.CR PO SCH (06:30)
[2020-09-17] MEDS: Gabapentin 100 MG Cap (OWN SUPPLY) PO SCH ×2 (07:46→12:10)
[2020-09-17] MEDS: Calcium Carbonate 750 MG Tab.Chew PO PRN (07:46)
[2020-09-17] MEDS: Sertraline 100 MG Tab (OWN SUPPLY) PO SCH (07:47)
[2020-09-17] MEDS: ISOSORBIDE MONONITRATE 30 MG PO SCH (07:47)
[2020-09-17] MEDS: BUSPIRONE 15 MG PO SCH ×3 (07:47→19:47)
[2020-09-17] MEDS: Acetaminophen 325 MG Tab PO SCH ×3 (07:47→19:48)
[2020-09-17] MEDS: FUROSEMIDE 20 MG PO SCH ×2 (07:47→12:10)
[2020-09-17] MEDS: Ferrous Sulfate 325 MG Tab PO SCH (07:48)
[2020-09-17] MEDS: Multivitamins with Iron/Calcium/Folic Acid/Minerals Tab PO SCH (07:48)
[2020-09-17] MEDS: Cholecalciferol (Vitamin D3) 25 MCG Tab PO SCH (07:48)
[2020-09-17] MEDS: Metoprolol Succinate 25 MG Tab.ER (OWN SUPPLY) PO SCH (07:48)
[2020-09-17] MEDS: Vitamin B Complex Tab PO SCH (07:48)
[2020-09-17] MEDS: Phytonadione 100 MCG Tab PO SCH (07:48)
[2020-09-17] MEDS: Mineral Oil/Petrolatum,White Crm 454 GM Jar TOP SCH ×2 (07:49→19:49)
[2020-09-17] MEDS: PROBIOTIC GUMMIES PO SCH ×2 (09:08→20:59)
[2020-09-17] MEDS: Gabapentin 300 MG Cap (OWN SUPPLY) PO SCH (19:46)
[2020-09-17] MEDS: ROPINIROLE 0.5 MG PO SCH (19:47)
[2020-09-17] MEDS: WARFARIN 5 MG PO SCH (19:47)
[2020-09-17] MEDS: Melatonin 3 MG Tab PO SCH (19:48)
[2020-09-17] MEDS: Famotidine 20 MG Tab PO SCH (20:59)
[2020-09-18] MEDS: Omeprazole 20 MG Cap.CR PO SCH (06:19)
[2020-09-18] MEDS: Gabapentin 100 MG Cap (OWN SUPPLY) PO SCH ×2 (08:03→12:06)
[2020-09-18] MEDS: Sertraline 100 MG Tab (OWN SUPPLY) PO SCH (08:03)
[2020-09-18] MEDS: ISOSORBIDE MONONITRATE 30 MG PO SCH (08:03)
[2020-09-18] MEDS: Metoprolol Succinate 25 MG Tab.ER (OWN SUPPLY) PO SCH (08:04)
[2020-09-18] MEDS: Vitamin B Complex Tab PO SCH (08:04)
[2020-09-18] MEDS: Cholecalciferol (Vitamin D3) 25 MCG Tab PO SCH (08:04)
[2020-09-18] MEDS: Acetaminophen 325 MG Tab PO SCH ×3 (08:04→19:43)
[2020-09-18] MEDS: Multivitamins with Iron/Calcium/Folic Acid/Minerals Tab PO SCH (08:04)
[2020-09-18] MEDS: Phytonadione 100 MCG Tab PO SCH (08:04)
[2020-09-18] MEDS: Mineral Oil/Petrolatum,White Crm 454 GM Jar TOP SCH ×2 (08:05→19:45)
[2020-09-18] MEDS: FUROSEMIDE 20 MG PO SCH ×2 (08:05→12:06)
[2020-09-18] MEDS: BUSPIRONE 15 MG PO SCH ×3 (08:05→22:17)
[2020-09-18] MEDS: PROBIOTIC GUMMIES PO SCH ×2 (10:21→23:33)
[2020-09-18] MEDS: Melatonin 3 MG Tab PO SCH (19:43)
[2020-09-18] MEDS: ROPINIROLE 0.5 MG PO SCH (19:44)
[2020-09-18] MEDS: Gabapentin 300 MG Cap (OWN SUPPLY) PO SCH (19:45)
[2020-09-18] MEDS: WARFARIN 5 MG PO SCH (19:45)
[2020-09-18] MEDS: Famotidine 20 MG Tab PO SCH (22:17)
[2020-09-19] MEDS: Omeprazole 20 MG Cap.CR PO SCH (06:50)
[2020-09-19] MEDS: Gabapentin 100 MG Cap (OWN SUPPLY) PO SCH ×2 (08:28→12:12)
[2020-09-19] MEDS: BUSPIRONE 15 MG PO SCH ×3 (08:28→19:46)
[2020-09-19] MEDS: FUROSEMIDE 20 MG PO SCH ×2 (08:28→12:14)
[2020-09-19] MEDS: ISOSORBIDE MONONITRATE 30 MG PO SCH (08:29)
[2020-09-19] MEDS: Sertraline 100 MG Tab (OWN SUPPLY) PO SCH (08:29)
[2020-09-19] MEDS: Metoprolol Succinate 25 MG Tab.ER (OWN SUPPLY) PO SCH (08:29)
[2020-09-19] MEDS: Acetaminophen 325 MG Tab PO SCH ×3 (08:30→19:45)
[2020-09-19] MEDS: Cholecalciferol (Vitamin D3) 25 MCG Tab PO SCH (08:30)
[2020-09-19] MEDS: Phytonadione 100 MCG Tab PO SCH (08:31)
[2020-09-19] MEDS: Vitamin B Complex Tab PO SCH (08:31)
[2020-09-19] MEDS: Ferrous Sulfate 325 MG Tab PO SCH (08:31)
[2020-09-19] MEDS: Multivitamins with Iron/Calcium/Folic Acid/Minerals Tab PO SCH (08:31)
[2020-09-19] MEDS: Mineral Oil/Petrolatum,White Crm 454 GM Jar TOP SCH ×2 (08:32→19:47)
[2020-09-19] MEDS: PROBIOTIC GUMMIES PO SCH ×2 (09:51→19:47)
[2020-09-19] MEDS: Gabapentin 300 MG Cap (OWN SUPPLY) PO SCH (19:45)
[2020-09-19] MEDS: WARFARIN 5 MG PO SCH (19:45)
[2020-09-19] MEDS: Melatonin 3 MG Tab PO SCH (19:45)
[2020-09-19] MEDS: ROPINIROLE 0.5 MG PO SCH (19:46)
[2020-09-19] MEDS: Famotidine 20 MG Tab PO SCH (21:59)
[2020-09-20] MEDS: Omeprazole 20 MG Cap.CR PO SCH (06:23)
[2020-09-20] MEDS: Gabapentin 100 MG Cap (OWN SUPPLY) PO SCH ×2 (07:26→12:09)
[2020-09-20] MEDS: Vitamin B Complex Tab PO SCH (07:27)
[2020-09-20] MEDS: Multivitamins with Iron/Calcium/Folic Acid/Minerals Tab PO SCH (07:27)
[2020-09-20] MEDS: Acetaminophen 325 MG Tab PO SCH ×3 (07:27→20:32)
[2020-09-20] MEDS: FUROSEMIDE 20 MG PO SCH ×2 (07:27→12:10)
[2020-09-20] MEDS: Sertraline 100 MG Tab (OWN SUPPLY) PO SCH (07:27)
[2020-09-20] MEDS: BUSPIRONE 15 MG PO SCH ×3 (07:27→20:35)
[2020-09-20] MEDS: Cholecalciferol (Vitamin D3) 25 MCG Tab PO SCH (07:27)
[2020-09-20] MEDS: ISOSORBIDE MONONITRATE 30 MG PO SCH (07:27)
[2020-09-20] MEDS: Metoprolol Succinate 25 MG Tab.ER (OWN SUPPLY) PO SCH (07:28)
[2020-09-20] MEDS: Mineral Oil/Petrolatum,White Crm 454 GM Jar TOP SCH ×2 (07:29→20:33)
[2020-09-20] MEDS: PROBIOTIC GUMMIES PO SCH ×2 (07:29→20:34)
[2020-09-20] MEDS: Phytonadione 100 MCG Tab PO SCH (07:29)
[2020-09-20] MEDS: Calcium Carbonate 750 MG Tab.Chew PO PRN (12:12)
[2020-09-20] MEDS: Melatonin 3 MG Tab PO SCH (20:32)
[2020-09-20] MEDS: ROPINIROLE 0.5 MG PO SCH (20:33)
[2020-09-20] MEDS: Gabapentin 300 MG Cap (OWN SUPPLY) PO SCH (20:33)
[2020-09-20] MEDS: WARFARIN 5 MG PO SCH (20:33)
[2020-09-20] MEDS: Famotidine 20 MG Tab PO SCH (20:33)
[2020-09-21] MEDS: Omeprazole 20 MG Cap.CR PO SCH (06:28)
[2020-09-21] MEDS: Metoprolol Succinate 25 MG Tab.ER (OWN SUPPLY) PO SCH (07:46)
[2020-09-21] MEDS: Gabapentin 100 MG Cap (OWN SUPPLY) PO SCH ×2 (07:46→12:13)
[2020-09-21] MEDS: Sertraline 100 MG Tab (OWN SUPPLY) PO SCH (07:46)
[2020-09-21] MEDS: BUSPIRONE 15 MG PO SCH ×3 (07:47→20:54)
[2020-09-21] MEDS: FUROSEMIDE 20 MG PO SCH ×2 (07:47→12:13)
[2020-09-21] MEDS: ISOSORBIDE MONONITRATE 30 MG PO SCH (07:47)
[2020-09-21] MEDS: Mineral Oil/Petrolatum,White Crm 454 GM Jar TOP SCH ×2 (07:48→20:56)
[2020-09-21] MEDS: Acetaminophen 325 MG Tab PO SCH ×3 (07:48→20:55)
[2020-09-21] MEDS: Phytonadione 100 MCG Tab PO SCH (07:49)
[2020-09-21] MEDS: Multivitamins with Iron/Calcium/Folic Acid/Minerals Tab PO SCH (07:49)
[2020-09-21] MEDS: Cholecalciferol (Vitamin D3) 25 MCG Tab PO SCH (07:49)
[2020-09-21] MEDS: Vitamin B Complex Tab PO SCH (07:49)
[2020-09-21] MEDS: Ferrous Sulfate 325 MG Tab PO SCH (07:50)
[2020-09-21] MEDS: PROBIOTIC GUMMIES PO SCH ×2 (07:50→20:54)
[2020-09-21] MEDS: ROPINIROLE 0.5 MG PO SCH (20:54)
[2020-09-21] MEDS: WARFARIN 5 MG PO SCH (20:55)
[2020-09-21] MEDS: Gabapentin 300 MG Cap (OWN SUPPLY) PO SCH (20:55)
[2020-09-21] MEDS: Melatonin 3 MG Tab PO SCH (20:55)
[2020-09-21] MEDS: Famotidine 20 MG Tab PO SCH (20:57)
[2020-09-22] MEDS: Omeprazole 20 MG Cap.CR PO SCH (06:14)
[2020-09-22] MEDS: Phytonadione 100 MCG Tab PO SCH (09:29)
[2020-09-22] MEDS: Gabapentin 100 MG Cap (OWN SUPPLY) PO SCH ×2 (09:29→13:12)
[2020-09-22] MEDS: ISOSORBIDE MONONITRATE 30 MG PO SCH (09:30)
[2020-09-22] MEDS: Metoprolol Succinate 25 MG Tab.ER (OWN SUPPLY) PO SCH (09:30)
[2020-09-22] MEDS: BUSPIRONE 15 MG PO SCH ×3 (09:30→19:40)
[2020-09-22] MEDS: Cholecalciferol (Vitamin D3) 25 MCG Tab PO SCH (09:30)
[2020-09-22] MEDS: Acetaminophen 325 MG Tab PO SCH ×3 (09:30→19:37)
[2020-09-22] MEDS: Vitamin B Complex Tab PO SCH (09:30)
[2020-09-22] MEDS: Multivitamins with Iron/Calcium/Folic Acid/Minerals Tab PO SCH (09:30)
[2020-09-22] MEDS: Sertraline 100 MG Tab (OWN SUPPLY) PO SCH (09:31)
[2020-09-22] MEDS: FUROSEMIDE 20 MG PO SCH ×2 (09:32→13:12)
[2020-09-22] MEDS: PROBIOTIC GUMMIES PO SCH ×2 (09:33→19:41)
[2020-09-22] MEDS: Mineral Oil/Petrolatum,White Crm 454 GM Jar TOP SCH ×2 (09:53→19:41)
[2020-09-22] MEDS: Gabapentin 300 MG Cap (OWN SUPPLY) PO SCH (19:37)
[2020-09-22] MEDS: Melatonin 3 MG Tab PO SCH (19:37)
[2020-09-22] MEDS: Famotidine 20 MG Tab PO SCH (19:37)
[2020-09-22] MEDS: ROPINIROLE 0.5 MG PO SCH (19:41)
[2020-09-22] MEDS: WARFARIN 5 MG PO SCH (19:41)
[2020-09-23] MEDS: Omeprazole 20 MG Cap.CR PO SCH (06:06)
[2020-09-23] MEDS: Phytonadione 100 MCG Tab PO SCH (08:17)
[2020-09-23] MEDS: Vitamin B Complex Tab PO SCH (08:17)
[2020-09-23] MEDS: Acetaminophen 325 MG Tab PO SCH ×3 (08:17→19:52)
[2020-09-23] MEDS: Ferrous Sulfate 325 MG Tab PO SCH (08:17)
[2020-09-23] MEDS: Multivitamins with Iron/Calcium/Folic Acid/Minerals Tab PO SCH (08:17)
[2020-09-23] MEDS: Cholecalciferol (Vitamin D3) 25 MCG Tab PO SCH (08:17)
[2020-09-23] MEDS: Gabapentin 100 MG Cap (OWN SUPPLY) PO SCH ×2 (08:19→14:21)
[2020-09-23] MEDS: BUSPIRONE 15 MG PO SCH ×3 (08:20→20:09)
[2020-09-23] MEDS: FUROSEMIDE 20 MG PO SCH ×2 (08:21→14:20)
[2020-09-23] MEDS: Metoprolol Succinate 25 MG Tab.ER (OWN SUPPLY) PO SCH (08:21)
[2020-09-23] MEDS: ISOSORBIDE MONONITRATE 30 MG PO SCH (08:22)
[2020-09-23] MEDS: Sertraline 100 MG Tab (OWN SUPPLY) PO SCH (08:23)
[2020-09-23] MEDS: Mineral Oil/Petrolatum,White Crm 454 GM Jar TOP SCH ×2 (08:23→19:53)
[2020-09-23] MEDS: PROBIOTIC GUMMIES PO SCH ×2 (08:23→19:52)
[2020-09-23] MEDS: WARFARIN 5 MG PO SCH (19:51)
[2020-09-23] MEDS: Gabapentin 300 MG Cap (OWN SUPPLY) PO SCH (19:51)
[2020-09-23] MEDS: Famotidine 20 MG Tab PO SCH (19:52)
[2020-09-23] MEDS: Melatonin 3 MG Tab PO SCH (19:52)
[2020-09-23] MEDS: ROPINIROLE 0.5 MG PO SCH (19:52)
[2020-09-24] MEDS: Omeprazole 20 MG Cap.CR PO SCH (06:08)
[2020-09-24] MEDS: Multivitamins with Iron/Calcium/Folic Acid/Minerals Tab PO SCH (08:05)
[2020-09-24] MEDS: Acetaminophen 325 MG Tab PO SCH ×3 (08:05→19:43)
[2020-09-24] MEDS: Cholecalciferol (Vitamin D3) 25 MCG Tab PO SCH (08:05)
[2020-09-24] MEDS: Gabapentin 100 MG Cap (OWN SUPPLY) PO SCH ×2 (08:06→13:35)
[2020-09-24] MEDS: Vitamin B Complex Tab PO SCH (08:06)
[2020-09-24] MEDS: Phytonadione 100 MCG Tab PO SCH (08:06)
[2020-09-24] MEDS: Sertraline 100 MG Tab (OWN SUPPLY) PO SCH (08:07)
[2020-09-24] MEDS: Metoprolol Succinate 25 MG Tab.ER (OWN SUPPLY) PO SCH (08:07)
[2020-09-24] MEDS: BUSPIRONE 15 MG PO SCH ×3 (08:07→19:42)
[2020-09-24] MEDS: FUROSEMIDE 20 MG PO SCH ×2 (08:07→13:36)
[2020-09-24] MEDS: ISOSORBIDE MONONITRATE 30 MG PO SCH (08:08)
[2020-09-24] MEDS: Mineral Oil/Petrolatum,White Crm 454 GM Jar TOP SCH ×2 (08:10→19:44)
[2020-09-24] MEDS: PROBIOTIC GUMMIES PO SCH ×2 (08:10→19:44)
[2020-09-24] MEDS: Gabapentin 300 MG Cap (OWN SUPPLY) PO SCH (19:42)
[2020-09-24] MEDS: WARFARIN 5 MG PO SCH (19:42)
[2020-09-24] MEDS: Famotidine 20 MG Tab PO SCH (19:43)
[2020-09-24] MEDS: ROPINIROLE 0.5 MG PO SCH (19:43)
[2020-09-24] MEDS: Melatonin 3 MG Tab PO SCH (19:43)
[2020-09-25] MEDS: Omeprazole 20 MG Cap.CR PO SCH (06:10)
[2020-09-25] MEDS: Ferrous Sulfate 325 MG Tab PO SCH (07:59)
[2020-09-25] MEDS: Multivitamins with Iron/Calcium/Folic Acid/Minerals Tab PO SCH (07:59)
[2020-09-25] MEDS: Acetaminophen 325 MG Tab PO SCH ×3 (07:59→19:48)
[2020-09-25] MEDS: Cholecalciferol (Vitamin D3) 25 MCG Tab PO SCH (07:59)
[2020-09-25] MEDS: Phytonadione 100 MCG Tab PO SCH (07:59)
[2020-09-25] MEDS: Vitamin B Complex Tab PO SCH (07:59)
[2020-09-25] MEDS: Mineral Oil/Petrolatum,White Crm 454 GM Jar TOP SCH ×2 (08:01→19:53)
[2020-09-25] MEDS: ISOSORBIDE MONONITRATE 30 MG PO SCH (08:02)
[2020-09-25] MEDS: FUROSEMIDE 20 MG PO SCH ×2 (08:05→12:16)
[2020-09-25] MEDS: Metoprolol Succinate 25 MG Tab.ER (OWN SUPPLY) PO SCH (08:05)
[2020-09-25] MEDS: BUSPIRONE 15 MG PO SCH ×3 (08:05→19:51)
[2020-09-25] MEDS: Gabapentin 100 MG Cap (OWN SUPPLY) PO SCH ×2 (08:06→12:18)
[2020-09-25] MEDS: Sertraline 100 MG Tab (OWN SUPPLY) PO SCH (08:07)
[2020-09-25] MEDS: PROBIOTIC GUMMIES PO SCH ×2 (08:09→19:56)
[2020-09-25] MEDS: Melatonin 3 MG Tab PO SCH (19:48)
[2020-09-25] MEDS: Famotidine 20 MG Tab PO SCH (19:48)
[2020-09-25] MEDS: WARFARIN 5 MG PO SCH (19:50)
[2020-09-25] MEDS: ROPINIROLE 0.5 MG PO SCH (19:51)
[2020-09-25] MEDS: Gabapentin 300 MG Cap (OWN SUPPLY) PO SCH (19:51)
[2020-09-26] MEDS: Omeprazole 20 MG Cap.CR PO SCH (06:26)
[2020-09-26] MEDS: Phytonadione 100 MCG Tab PO SCH (08:06)
[2020-09-26] MEDS: Acetaminophen 325 MG Tab PO SCH ×3 (08:07→20:04)
[2020-09-26] MEDS: Multivitamins with Iron/Calcium/Folic Acid/Minerals Tab PO SCH (08:07)
[2020-09-26] MEDS: Cholecalciferol (Vitamin D3) 25 MCG Tab PO SCH (08:07)
[2020-09-26] MEDS: Vitamin B Complex Tab PO SCH (08:07)
[2020-09-26] MEDS: Gabapentin 100 MG Cap (OWN SUPPLY) PO SCH ×2 (08:10→13:51)
[2020-09-26] MEDS: FUROSEMIDE 20 MG PO SCH ×2 (08:10→13:50)
[2020-09-26] MEDS: Metoprolol Succinate 25 MG Tab.ER (OWN SUPPLY) PO SCH (08:13)
[2020-09-26] MEDS: BUSPIRONE 15 MG PO SCH ×3 (08:14→20:05)
[2020-09-26] MEDS: Sertraline 100 MG Tab (OWN SUPPLY) PO SCH (08:15)
[2020-09-26] MEDS: ISOSORBIDE MONONITRATE 30 MG PO SCH (08:15)
[2020-09-26] MEDS: Mineral Oil/Petrolatum,White Crm 454 GM Jar TOP SCH ×2 (08:16→20:08)
[2020-09-26] MEDS: PROBIOTIC GUMMIES PO SCH ×2 (08:17→20:08)
[2020-09-26] MEDS: Melatonin 3 MG Tab PO SCH (20:04)
[2020-09-26] MEDS: WARFARIN 5 MG PO SCH (20:05)
[2020-09-26] MEDS: ROPINIROLE 0.5 MG PO SCH (20:06)
[2020-09-26] MEDS: Gabapentin 300 MG Cap (OWN SUPPLY) PO SCH (20:06)
[2020-09-26] MEDS: Famotidine 20 MG Tab PO SCH (20:09)
[2020-09-27] MEDS: Omeprazole 20 MG Cap.CR PO SCH (06:03)
[2020-09-27] MEDS: Gabapentin 100 MG Cap (OWN SUPPLY) PO SCH ×2 (08:13→12:12)
[2020-09-27] MEDS: ISOSORBIDE MONONITRATE 30 MG PO SCH (08:14)
[2020-09-27] MEDS: BUSPIRONE 15 MG PO SCH ×3 (08:15→20:08)
[2020-09-27] MEDS: Sertraline 100 MG Tab (OWN SUPPLY) PO SCH (08:15)
[2020-09-27] MEDS: FUROSEMIDE 20 MG PO SCH ×2 (08:15→12:12)
[2020-09-27] MEDS: Phytonadione 100 MCG Tab PO SCH (08:15)
[2020-09-27] MEDS: Metoprolol Succinate 25 MG Tab.ER (OWN SUPPLY) PO SCH (08:15)
[2020-09-27] MEDS: Multivitamins with Iron/Calcium/Folic Acid/Minerals Tab PO SCH (08:15)
[2020-09-27] MEDS: Vitamin B Complex Tab PO SCH (08:15)
[2020-09-27] MEDS: Cholecalciferol (Vitamin D3) 25 MCG Tab PO SCH (08:15)
[2020-09-27] MEDS: Ferrous Sulfate 325 MG Tab PO SCH (08:16)
[2020-09-27] MEDS: Mineral Oil/Petrolatum,White Crm 454 GM Jar TOP SCH ×2 (08:16→20:03)
[2020-09-27] MEDS: PROBIOTIC GUMMIES PO SCH ×2 (08:16→20:12)
[2020-09-27] MEDS: Acetaminophen 325 MG Tab PO SCH ×3 (08:16→20:04)
[2020-09-27] MEDS: Melatonin 3 MG Tab PO SCH (20:04)
[2020-09-27] MEDS: Famotidine 20 MG Tab PO SCH (20:04)
[2020-09-27] MEDS: WARFARIN 5 MG PO SCH (20:08)
[2020-09-27] MEDS: ROPINIROLE 0.5 MG PO SCH (20:08)
[2020-09-27] MEDS: Gabapentin 300 MG Cap (OWN SUPPLY) PO SCH (20:09)
[2020-09-28] MEDS: Omeprazole 20 MG Cap.CR PO SCH (06:00)
[2020-09-28] MEDS: Sertraline 100 MG Tab (OWN SUPPLY) PO SCH (07:54)
[2020-09-28] MEDS: ISOSORBIDE MONONITRATE 30 MG PO SCH (07:55)
[2020-09-28] MEDS: Metoprolol Succinate 25 MG Tab.ER (OWN SUPPLY) PO SCH (07:55)
[2020-09-28] MEDS: FUROSEMIDE 20 MG PO SCH ×2 (07:55→12:24)
[2020-09-28] MEDS: Multivitamins with Iron/Calcium/Folic Acid/Minerals Tab PO SCH (07:56)
[2020-09-28] MEDS: Gabapentin 100 MG Cap (OWN SUPPLY) PO SCH ×2 (07:56→12:24)
[2020-09-28] MEDS: BUSPIRONE 15 MG PO SCH ×3 (07:56→19:49)
[2020-09-28] MEDS: Acetaminophen 325 MG Tab PO SCH ×3 (07:56→19:47)
[2020-09-28] MEDS: Vitamin B Complex Tab PO SCH (07:56)
[2020-09-28] MEDS: Mineral Oil/Petrolatum,White Crm 454 GM Jar TOP SCH ×2 (07:56→19:49)
[2020-09-28] MEDS: Cholecalciferol (Vitamin D3) 25 MCG Tab PO SCH (07:56)
[2020-09-28] MEDS: Phytonadione 100 MCG Tab PO SCH (07:56)
[2020-09-28] MEDS: PROBIOTIC GUMMIES PO SCH ×2 (07:57→19:48)
[2020-09-28] MEDS: Melatonin 3 MG Tab PO SCH (19:47)
[2020-09-28] MEDS: Famotidine 20 MG Tab PO SCH (19:47)
[2020-09-28] MEDS: WARFARIN 5 MG PO SCH (19:49)
[2020-09-28] MEDS: Gabapentin 300 MG Cap (OWN SUPPLY) PO SCH (19:50)
[2020-09-28] MEDS: ROPINIROLE 0.5 MG PO SCH (19:50)
[2020-09-29] MEDS: Omeprazole 20 MG Cap.CR PO SCH (06:07)
[2020-09-29] MEDS: Vitamin B Complex Tab PO SCH (07:29)
[2020-09-29] MEDS: Multivitamins with Iron/Calcium/Folic Acid/Minerals Tab PO SCH (07:29)
[2020-09-29] MEDS: Ferrous Sulfate 325 MG Tab PO SCH (07:29)
[2020-09-29] MEDS: Acetaminophen 325 MG Tab PO SCH ×3 (07:29→19:27)
[2020-09-29] MEDS: Phytonadione 100 MCG Tab PO SCH (07:29)
[2020-09-29] MEDS: Cholecalciferol (Vitamin D3) 25 MCG Tab PO SCH (07:29)
[2020-09-29] MEDS: Sertraline 100 MG Tab (OWN SUPPLY) PO SCH (07:30)
[2020-09-29] MEDS: ISOSORBIDE MONONITRATE 30 MG PO SCH (07:30)
[2020-09-29] MEDS: Metoprolol Succinate 25 MG Tab.ER (OWN SUPPLY) PO SCH (07:30)
[2020-09-29] MEDS: FUROSEMIDE 20 MG PO SCH ×2 (07:30→12:30)
[2020-09-29] MEDS: BUSPIRONE 15 MG PO SCH ×3 (07:31→19:27)
[2020-09-29] MEDS: Gabapentin 100 MG Cap (OWN SUPPLY) PO SCH ×2 (07:31→12:30)
[2020-09-29] MEDS: Mineral Oil/Petrolatum,White Crm 454 GM Jar TOP SCH ×2 (07:32→19:29)
[2020-09-29] MEDS: PROBIOTIC GUMMIES PO SCH ×2 (07:33→19:27)
[2020-09-29] MEDS: Famotidine 20 MG Tab PO SCH (19:27)
[2020-09-29] MEDS: Melatonin 3 MG Tab PO SCH (19:27)
[2020-09-29] MEDS: ROPINIROLE 0.5 MG PO SCH (19:27)
[2020-09-29] MEDS: WARFARIN 5 MG PO SCH (19:28)
[2020-09-29] MEDS: Gabapentin 300 MG Cap (OWN SUPPLY) PO SCH (19:29)
[2020-09-30] MEDS: Omeprazole 20 MG Cap.CR PO SCH (06:08)
[2020-09-30] MEDS: PROBIOTIC GUMMIES PO SCH (06:09)
[2020-09-30] MEDS ORDERED: Lactobacillus Rhamnosus GG (Probiotic) Cap PO SCH (07:00)
[2020-09-30] MEDS: Gabapentin 100 MG Cap (OWN SUPPLY) PO SCH ×2 (08:55→14:11)
[2020-09-30] MEDS: ISOSORBIDE MONONITRATE 30 MG PO SCH (08:55)
[2020-09-30] MEDS: Metoprolol Succinate 25 MG Tab.ER (OWN SUPPLY) PO SCH (08:56)
[2020-09-30] MEDS: FUROSEMIDE 20 MG PO SCH ×2 (08:56→14:12)
[2020-09-30] MEDS: Phytonadione 100 MCG Tab PO SCH (08:57)
[2020-09-30] MEDS: Sertraline 100 MG Tab (OWN SUPPLY) PO SCH (08:57)
[2020-09-30] MEDS: Multivitamins with Iron/Calcium/Folic Acid/Minerals Tab PO SCH (08:58)
[2020-09-30] MEDS: Acetaminophen 325 MG Tab PO SCH ×3 (08:58→20:42)
[2020-09-30] MEDS: Cholecalciferol (Vitamin D3) 25 MCG Tab PO SCH (08:58)
[2020-09-30] MEDS: Vitamin B Complex Tab PO SCH (08:58)
[2020-09-30] MEDS: Mineral Oil/Petrolatum,White Crm 454 GM Jar TOP SCH ×2 (09:01→20:44)
[2020-09-30] MEDS: BUSPIRONE 15 MG PO SCH ×3 (09:01→20:45)
--- NOTE | 2020-09-30 09:09 | PCM.SN.2 ---
- Free Text/Narrative Note: Asked by nursing to come and reevaluate leg wound. We did treat for pseudomonas at the end of August. now worsening again. Discussed that it is probably time to have her see the wound clinic in [place] for further evaluation/recommendations. She is willing to do so. Referral placed through [facility]. Nursing has also noted increased confusion on and off lately. Will grab a UA.
[2020-09-30] MEDS: ROPINIROLE 0.5 MG PO SCH (20:43)
[2020-09-30] MEDS: Melatonin 3 MG Tab PO SCH (20:43)
[2020-09-30] MEDS: WARFARIN 5 MG PO SCH (20:43)
[2020-09-30] MEDS: Famotidine 20 MG Tab PO SCH (20:43)
[2020-09-30] MEDS: Gabapentin 300 MG Cap (OWN SUPPLY) PO SCH (20:44)
[2020-10-01] MEDS: Omeprazole 20 MG Cap.CR PO SCH (06:23)
[2020-10-01] MEDS: PROBIOTIC GUMMIES PO SCH (06:24)
[2020-10-01] MEDS: Ferrous Sulfate 325 MG Tab PO SCH (09:06)
[2020-10-01] MEDS: Phytonadione 100 MCG Tab PO SCH (09:06)
[2020-10-01] MEDS: Acetaminophen 325 MG Tab PO SCH ×3 (09:07→20:07)
[2020-10-01] MEDS: Cholecalciferol (Vitamin D3) 25 MCG Tab PO SCH (09:07)
[2020-10-01] MEDS: Multivitamins with Iron/Calcium/Folic Acid/Minerals Tab PO SCH (09:07)
[2020-10-01] MEDS: Vitamin B Complex Tab PO SCH (09:07)
[2020-10-01] MEDS: ISOSORBIDE MONONITRATE 30 MG PO SCH (09:08)
[2020-10-01] MEDS: Sertraline 100 MG Tab (OWN SUPPLY) PO SCH (09:09)
[2020-10-01] MEDS: BUSPIRONE 15 MG PO SCH ×3 (09:10→20:08)
[2020-10-01] MEDS: FUROSEMIDE 20 MG PO SCH ×2 (09:10→14:22)
[2020-10-01] MEDS: Metoprolol Succinate 25 MG Tab.ER (OWN SUPPLY) PO SCH (09:10)
[2020-10-01] MEDS: Mineral Oil/Petrolatum,White Crm 454 GM Jar TOP SCH ×2 (09:11→20:09)
[2020-10-01] MEDS: Gabapentin 100 MG Cap (OWN SUPPLY) PO SCH ×2 (09:12→14:23)
[2020-10-01] MEDS ORDERED: Nitrofurantoin Monohydrate/Macrocrystalline 100 MG Cap PO SCH (09:15)
[2020-10-01] MEDS: Famotidine 20 MG Tab PO SCH (20:07)
[2020-10-01] MEDS: Melatonin 3 MG Tab PO SCH (20:07)
[2020-10-01] MEDS: Gabapentin 300 MG Cap (OWN SUPPLY) PO SCH (20:08)
[2020-10-01] MEDS: WARFARIN 5 MG PO SCH (20:08)
[2020-10-01] MEDS: ROPINIROLE 0.5 MG PO SCH (20:10)
[2020-10-02] MEDS: Omeprazole 20 MG Cap.CR PO SCH (05:59)
[2020-10-02] MEDS: Metoprolol Succinate 25 MG Tab.ER (OWN SUPPLY) PO SCH (09:03)
[2020-10-02] MEDS: Sertraline 100 MG Tab (OWN SUPPLY) PO SCH (09:07)
[2020-10-02] MEDS: BUSPIRONE 15 MG PO SCH ×3 (09:08→20:16)
[2020-10-02] MEDS: FUROSEMIDE 20 MG PO SCH ×2 (09:08→14:10)
[2020-10-02] MEDS: ISOSORBIDE MONONITRATE 30 MG PO SCH (09:08)
[2020-10-02] MEDS: Phytonadione 100 MCG Tab PO SCH (09:09)
[2020-10-02] MEDS: Cholecalciferol (Vitamin D3) 25 MCG Tab PO SCH (09:09)
[2020-10-02] MEDS: Multivitamins with Iron/Calcium/Folic Acid/Minerals Tab PO SCH (09:10)
[2020-10-02] MEDS: Vitamin B Complex Tab PO SCH (09:10)
[2020-10-02] MEDS: Mineral Oil/Petrolatum,White Crm 454 GM Jar TOP SCH ×2 (09:10→20:17)
[2020-10-02] MEDS: Acetaminophen 325 MG Tab PO SCH ×3 (09:10→20:15)
[2020-10-02] MEDS: Gabapentin 100 MG Cap (OWN SUPPLY) PO SCH ×2 (09:10→14:11)
[2020-10-02] MEDS: PROBIOTIC GUMMIES PO SCH (10:27)
[2020-10-02] MEDS: Melatonin 3 MG Tab PO SCH (20:15)
[2020-10-02] MEDS: Famotidine 20 MG Tab PO SCH (20:15)
[2020-10-02] MEDS: WARFARIN 5 MG PO SCH (20:16)
[2020-10-02] MEDS: Gabapentin 300 MG Cap (OWN SUPPLY) PO SCH (20:16)
[2020-10-02] MEDS: ROPINIROLE 0.5 MG PO SCH (20:16)
[2020-10-03] MEDS: Omeprazole 20 MG Cap.CR PO SCH (06:21)
[2020-10-03] MEDS: Phytonadione 100 MCG Tab PO SCH (08:06)
[2020-10-03] MEDS: Multivitamins with Iron/Calcium/Folic Acid/Minerals Tab PO SCH (08:06)
[2020-10-03] MEDS: Cholecalciferol (Vitamin D3) 25 MCG Tab PO SCH (08:06)
[2020-10-03] MEDS: Ferrous Sulfate 325 MG Tab PO SCH (08:06)
[2020-10-03] MEDS: Metoprolol Succinate 25 MG Tab.ER (OWN SUPPLY) PO SCH (08:07)
[2020-10-03] MEDS: FUROSEMIDE 20 MG PO SCH ×2 (08:07→13:48)
[2020-10-03] MEDS: Sertraline 100 MG Tab (OWN SUPPLY) PO SCH (08:07)
[2020-10-03] MEDS: Vitamin B Complex Tab PO SCH (08:07)
[2020-10-03] MEDS: BUSPIRONE 15 MG PO SCH ×3 (08:07→20:18)
[2020-10-03] MEDS: ISOSORBIDE MONONITRATE 30 MG PO SCH (08:07)
[2020-10-03] MEDS: Acetaminophen 325 MG Tab PO SCH ×3 (08:07→20:21)
[2020-10-03] MEDS: Mineral Oil/Petrolatum,White Crm 454 GM Jar TOP SCH ×2 (08:08→20:20)
[2020-10-03] MEDS: Gabapentin 100 MG Cap (OWN SUPPLY) PO SCH ×2 (08:08→13:49)
[2020-10-03] MEDS: PROBIOTIC GUMMIES PO SCH (10:48)
[2020-10-03] MEDS: Gabapentin 300 MG Cap (OWN SUPPLY) PO SCH (20:18)
[2020-10-03] MEDS: WARFARIN 5 MG PO SCH (20:19)
[2020-10-03] MEDS: ROPINIROLE 0.5 MG PO SCH (20:19)
[2020-10-03] MEDS: Melatonin 3 MG Tab PO SCH (20:19)
[2020-10-03] MEDS: Famotidine 20 MG Tab PO SCH (20:20)
[2020-10-04] MEDS: Omeprazole 20 MG Cap.CR PO SCH (06:21)
[2020-10-04] MEDS: ISOSORBIDE MONONITRATE 30 MG PO SCH ×2 (08:59→09:39)
[2020-10-04] MEDS: Sertraline 100 MG Tab (OWN SUPPLY) PO SCH (08:59)
[2020-10-04] MEDS: Cholecalciferol (Vitamin D3) 25 MCG Tab PO SCH (08:59)
[2020-10-04] MEDS: Metoprolol Succinate 25 MG Tab.ER (OWN SUPPLY) PO SCH (08:59)
[2020-10-04] MEDS: Phytonadione 100 MCG Tab PO SCH (08:59)
[2020-10-04] MEDS: BUSPIRONE 15 MG PO SCH ×3 (08:59→20:12)
[2020-10-04] MEDS: Multivitamins with Iron/Calcium/Folic Acid/Minerals Tab PO SCH (08:59)
[2020-10-04] MEDS: Vitamin B Complex Tab PO SCH (08:59)
[2020-10-04] MEDS: FUROSEMIDE 20 MG PO SCH ×2 (08:59→13:17)
[2020-10-04] MEDS: Acetaminophen 325 MG Tab PO SCH ×3 (09:00→20:12)
[2020-10-04] MEDS: Mineral Oil/Petrolatum,White Crm 454 GM Jar TOP SCH ×2 (09:00→20:14)
[2020-10-04] MEDS: PROBIOTIC GUMMIES PO SCH (09:01)
[2020-10-04] MEDS: Gabapentin 100 MG Cap (OWN SUPPLY) PO SCH ×2 (09:40→13:17)
[2020-10-04] MEDS: Melatonin 3 MG Tab PO SCH (20:11)
[2020-10-04] MEDS: WARFARIN 5 MG PO SCH (20:12)
[2020-10-04] MEDS: ROPINIROLE 0.5 MG PO SCH (20:12)
[2020-10-04] MEDS: Famotidine 20 MG Tab PO SCH (20:12)
[2020-10-04] MEDS: Gabapentin 300 MG Cap (OWN SUPPLY) PO SCH (20:13)
[2020-10-05] MEDS: Omeprazole 20 MG Cap.CR PO SCH (06:12)
[2020-10-05] MEDS: PROBIOTIC GUMMIES PO SCH (06:12)
[2020-10-05] MEDS: BUSPIRONE 15 MG PO SCH ×3 (08:52→20:05)
[2020-10-05] MEDS: Gabapentin 100 MG Cap (OWN SUPPLY) PO SCH ×2 (08:52→12:37)
[2020-10-05] MEDS: FUROSEMIDE 20 MG PO SCH ×2 (08:53→12:38)
[2020-10-05] MEDS: Sertraline 100 MG Tab (OWN SUPPLY) PO SCH (08:54)
[2020-10-05] MEDS: Mineral Oil/Petrolatum,White Crm 454 GM Jar TOP SCH ×2 (08:56→20:06)
[2020-10-05] MEDS: ISOSORBIDE MONONITRATE 30 MG PO SCH (09:06)
[2020-10-05] MEDS: Metoprolol Succinate 25 MG Tab.ER (OWN SUPPLY) PO SCH (09:08)
[2020-10-05] MEDS: Multivitamins with Iron/Calcium/Folic Acid/Minerals Tab PO SCH (09:10)
[2020-10-05] MEDS: Acetaminophen 325 MG Tab PO SCH ×3 (09:10→20:04)
[2020-10-05] MEDS: Ferrous Sulfate 325 MG Tab PO SCH (09:11)
[2020-10-05] MEDS: Vitamin B Complex Tab PO SCH (09:11)
[2020-10-05] MEDS: Phytonadione 100 MCG Tab PO SCH (09:12)
[2020-10-05] MEDS: Cholecalciferol (Vitamin D3) 25 MCG Tab PO SCH (09:12)
[2020-10-05] MEDS: Gabapentin 300 MG Cap (OWN SUPPLY) PO SCH (20:04)
[2020-10-05] MEDS: Melatonin 3 MG Tab PO SCH (20:04)
[2020-10-05] MEDS: Famotidine 20 MG Tab PO SCH (20:04)
[2020-10-05] MEDS: ROPINIROLE 0.5 MG PO SCH (20:05)
[2020-10-05] MEDS: WARFARIN 5 MG PO SCH (20:06)
[2020-10-06] MEDS: Omeprazole 20 MG Cap.CR PO SCH ×2 (06:00→06:37)
[2020-10-06] MEDS: PROBIOTIC GUMMIES PO SCH ×2 (06:00→06:38)
[2020-10-06] MEDS: Sertraline 100 MG Tab (OWN SUPPLY) PO SCH (08:01)
[2020-10-06] MEDS: BUSPIRONE 15 MG PO SCH ×3 (08:01→20:27)
[2020-10-06] MEDS: Gabapentin 100 MG Cap (OWN SUPPLY) PO SCH ×2 (08:01→12:45)
[2020-10-06] MEDS: Metoprolol Succinate 25 MG Tab.ER (OWN SUPPLY) PO SCH (08:01)
[2020-10-06] MEDS: ISOSORBIDE MONONITRATE 30 MG PO SCH (08:02)
[2020-10-06] MEDS: FUROSEMIDE 20 MG PO SCH ×2 (08:02→12:45)
[2020-10-06] MEDS: Acetaminophen 325 MG Tab PO SCH ×3 (08:02→20:23)
[2020-10-06] MEDS: Vitamin B Complex Tab PO SCH (08:03)
[2020-10-06] MEDS: Multivitamins with Iron/Calcium/Folic Acid/Minerals Tab PO SCH (08:03)
[2020-10-06] MEDS: Phytonadione 100 MCG Tab PO SCH (08:03)
[2020-10-06] MEDS: Cholecalciferol (Vitamin D3) 25 MCG Tab PO SCH (08:03)
[2020-10-06] MEDS: Mineral Oil/Petrolatum,White Crm 454 GM Jar TOP SCH ×2 (08:04→20:29)
[2020-10-06] MEDS: Melatonin 3 MG Tab PO SCH (20:22)
[2020-10-06] MEDS: Famotidine 20 MG Tab PO SCH (20:23)
[2020-10-06] MEDS: Gabapentin 300 MG Cap (OWN SUPPLY) PO SCH (20:26)
[2020-10-06] MEDS: ROPINIROLE 0.5 MG PO SCH (20:27)
[2020-10-06] MEDS: WARFARIN 5 MG PO SCH (20:27)
[2020-10-07] MEDS: Omeprazole 20 MG Cap.CR PO SCH (07:03)
[2020-10-07] MEDS: PROBIOTIC GUMMIES PO SCH (07:04)
[2020-10-07] MEDS: Gabapentin 100 MG Cap (OWN SUPPLY) PO SCH ×2 (09:02→12:51)
[2020-10-07] MEDS: ISOSORBIDE MONONITRATE 30 MG PO SCH (09:03)
[2020-10-07] MEDS: BUSPIRONE 15 MG PO SCH ×3 (09:03→19:51)
[2020-10-07] MEDS: Metoprolol Succinate 25 MG Tab.ER (OWN SUPPLY) PO SCH (09:04)
[2020-10-07] MEDS: Phytonadione 100 MCG Tab PO SCH (09:05)
[2020-10-07] MEDS: Acetaminophen 325 MG Tab PO SCH ×3 (09:05→19:55)
[2020-10-07] MEDS: Ferrous Sulfate 325 MG Tab PO SCH (09:05)
[2020-10-07] MEDS: Sertraline 100 MG Tab (OWN SUPPLY) PO SCH (09:05)
[2020-10-07] MEDS: FUROSEMIDE 20 MG PO SCH ×2 (09:05→12:50)
[2020-10-07] MEDS: Vitamin B Complex Tab PO SCH (09:06)
[2020-10-07] MEDS: Mineral Oil/Petrolatum,White Crm 454 GM Jar TOP SCH ×2 (09:06→19:56)
[2020-10-07] MEDS: Multivitamins with Iron/Calcium/Folic Acid/Minerals Tab PO SCH (09:06)
[2020-10-07] MEDS: Cholecalciferol (Vitamin D3) 25 MCG Tab PO SCH (09:06)
[2020-10-07] MEDS: Calcium Carbonate 750 MG Tab.Chew PO PRN (09:13)
[2020-10-07] MEDS: WARFARIN 5 MG PO SCH (19:51)
[2020-10-07] MEDS: ROPINIROLE 0.5 MG PO SCH (19:51)
[2020-10-07] MEDS: Gabapentin 300 MG Cap (OWN SUPPLY) PO SCH (19:52)
[2020-10-07] MEDS: Melatonin 3 MG Tab PO SCH (19:54)
[2020-10-07] MEDS: Famotidine 20 MG Tab PO SCH (19:54)
[2020-10-08] MEDS: PROBIOTIC GUMMIES PO SCH (06:18)
[2020-10-08] MEDS: Omeprazole 20 MG Cap.CR PO SCH (06:18)
[2020-10-08] MEDS: FUROSEMIDE 20 MG PO SCH ×2 (08:54→12:30)
[2020-10-08] MEDS: BUSPIRONE 15 MG PO SCH ×3 (08:54→19:53)
[2020-10-08] MEDS: Gabapentin 100 MG Cap (OWN SUPPLY) PO SCH ×2 (08:54→12:31)
[2020-10-08] MEDS: Cholecalciferol (Vitamin D3) 25 MCG Tab PO SCH (08:55)
[2020-10-08] MEDS: Acetaminophen 325 MG Tab PO SCH ×3 (08:55→19:51)
[2020-10-08] MEDS: Phytonadione 100 MCG Tab PO SCH (08:55)
[2020-10-08] MEDS: Vitamin B Complex Tab PO SCH (08:55)
[2020-10-08] MEDS: Multivitamins with Iron/Calcium/Folic Acid/Minerals Tab PO SCH (08:55)
[2020-10-08] MEDS: Sertraline 100 MG Tab (OWN SUPPLY) PO SCH (08:55)
[2020-10-08] MEDS: ISOSORBIDE MONONITRATE 30 MG PO SCH (08:56)
[2020-10-08] MEDS: Metoprolol Succinate 25 MG Tab.ER (OWN SUPPLY) PO SCH (08:56)
[2020-10-08] MEDS: Mineral Oil/Petrolatum,White Crm 454 GM Jar TOP SCH ×2 (08:57→19:52)
[2020-10-08] MEDS: Calcium Carbonate 750 MG Tab.Chew PO PRN (11:57)
[2020-10-08] MEDS: WARFARIN 5 MG PO SCH (19:51)
[2020-10-08] MEDS: Melatonin 3 MG Tab PO SCH (19:51)
[2020-10-08] MEDS: ROPINIROLE 0.5 MG PO SCH (19:51)
[2020-10-08] MEDS: Famotidine 20 MG Tab PO SCH (19:51)
[2020-10-08] MEDS: Gabapentin 300 MG Cap (OWN SUPPLY) PO SCH (19:53)
[2020-10-09] MEDS: Omeprazole 20 MG Cap.CR PO SCH (06:15)
[2020-10-09] MEDS: PROBIOTIC GUMMIES PO SCH (06:15)
[2020-10-09] MEDS: Phytonadione 100 MCG Tab PO SCH (08:38)
[2020-10-09] MEDS: Acetaminophen 325 MG Tab PO SCH ×3 (08:38→20:16)
[2020-10-09] MEDS: Metoprolol Succinate 25 MG Tab.ER (OWN SUPPLY) PO SCH (08:39)
[2020-10-09] MEDS: Multivitamins with Iron/Calcium/Folic Acid/Minerals Tab PO SCH (08:39)
[2020-10-09] MEDS: Cholecalciferol (Vitamin D3) 25 MCG Tab PO SCH (08:39)
[2020-10-09] MEDS: Ferrous Sulfate 325 MG Tab PO SCH (08:39)
[2020-10-09] MEDS: Vitamin B Complex Tab PO SCH (08:39)
[2020-10-09] MEDS: Gabapentin 100 MG Cap (OWN SUPPLY) PO SCH ×2 (08:39→12:56)
[2020-10-09] MEDS: ISOSORBIDE MONONITRATE 30 MG PO SCH (08:39)
[2020-10-09] MEDS: Sertraline 100 MG Tab (OWN SUPPLY) PO SCH (08:39)
[2020-10-09] MEDS: FUROSEMIDE 20 MG PO SCH ×2 (08:39→12:56)
[2020-10-09] MEDS: Mineral Oil/Petrolatum,White Crm 454 GM Jar TOP SCH ×2 (08:40→20:17)
[2020-10-09] MEDS: BUSPIRONE 15 MG PO SCH ×3 (08:40→20:16)
[2020-10-09] MEDS: ROPINIROLE 0.5 MG PO SCH (20:16)
[2020-10-09] MEDS: Gabapentin 300 MG Cap (OWN SUPPLY) PO SCH (20:16)
[2020-10-09] MEDS: Famotidine 20 MG Tab PO SCH (20:16)
[2020-10-09] MEDS: Melatonin 3 MG Tab PO SCH (20:16)
[2020-10-09] MEDS: WARFARIN 5 MG PO SCH (20:18)
[2020-10-10] MEDS: Omeprazole 20 MG Cap.CR PO SCH (06:05)
[2020-10-10] MEDS: PROBIOTIC GUMMIES PO SCH (06:05)
[2020-10-10] MEDS: Phytonadione 100 MCG Tab PO SCH (08:23)
[2020-10-10] MEDS: Multivitamins with Iron/Calcium/Folic Acid/Minerals Tab PO SCH (08:23)
[2020-10-10] MEDS: Vitamin B Complex Tab PO SCH (08:23)
[2020-10-10] MEDS: Gabapentin 100 MG Cap (OWN SUPPLY) PO SCH ×2 (08:23→12:47)
[2020-10-10] MEDS: Cholecalciferol (Vitamin D3) 25 MCG Tab PO SCH (08:23)
[2020-10-10] MEDS: Acetaminophen 325 MG Tab PO SCH ×3 (08:23→20:11)
[2020-10-10] MEDS: Mineral Oil/Petrolatum,White Crm 454 GM Jar TOP SCH ×2 (08:24→20:12)
[2020-10-10] MEDS: Sertraline 100 MG Tab (OWN SUPPLY) PO SCH (08:24)
[2020-10-10] MEDS: BUSPIRONE 15 MG PO SCH ×3 (08:24→20:10)
[2020-10-10] MEDS: ISOSORBIDE MONONITRATE 30 MG PO SCH (08:24)
[2020-10-10] MEDS: FUROSEMIDE 20 MG PO SCH ×2 (08:24→12:47)
[2020-10-10] MEDS: Metoprolol Succinate 25 MG Tab.ER (OWN SUPPLY) PO SCH (08:24)
[2020-10-10] MEDS: Gabapentin 300 MG Cap (OWN SUPPLY) PO SCH (20:09)
[2020-10-10] MEDS: Famotidine 20 MG Tab PO SCH (20:10)
[2020-10-10] MEDS: ROPINIROLE 0.5 MG PO SCH (20:10)
[2020-10-10] MEDS: WARFARIN 5 MG PO SCH (20:10)
[2020-10-10] MEDS: Melatonin 3 MG Tab PO SCH (20:10)
[2020-10-11] MEDS: PROBIOTIC GUMMIES PO SCH (06:02)
[2020-10-11] MEDS: Omeprazole 20 MG Cap.CR PO SCH (06:02)
[2020-10-11] MEDS: Sertraline 100 MG Tab (OWN SUPPLY) PO SCH (08:41)
[2020-10-11] MEDS: Phytonadione 100 MCG Tab PO SCH (08:41)
[2020-10-11] MEDS: Metoprolol Succinate 25 MG Tab.ER (OWN SUPPLY) PO SCH (08:41)
[2020-10-11] MEDS: BUSPIRONE 15 MG PO SCH ×3 (08:41→19:58)
[2020-10-11] MEDS: FUROSEMIDE 20 MG PO SCH ×2 (08:41→12:41)
[2020-10-11] MEDS: Vitamin B Complex Tab PO SCH (08:41)
[2020-10-11] MEDS: Gabapentin 100 MG Cap (OWN SUPPLY) PO SCH ×2 (08:41→12:42)
[2020-10-11] MEDS: ISOSORBIDE MONONITRATE 30 MG PO SCH (08:41)
[2020-10-11] MEDS: Acetaminophen 325 MG Tab PO SCH ×3 (08:41→19:56)
[2020-10-11] MEDS: Cholecalciferol (Vitamin D3) 25 MCG Tab PO SCH (08:42)
[2020-10-11] MEDS: Multivitamins with Iron/Calcium/Folic Acid/Minerals Tab PO SCH (08:42)
[2020-10-11] MEDS: Ferrous Sulfate 325 MG Tab PO SCH (08:42)
[2020-10-11] MEDS: Mineral Oil/Petrolatum,White Crm 454 GM Jar TOP SCH ×2 (10:48→19:57)
[2020-10-11] MEDS: Melatonin 3 MG Tab PO SCH (19:55)
[2020-10-11] MEDS: Gabapentin 300 MG Cap (OWN SUPPLY) PO SCH (19:55)
[2020-10-11] MEDS: Famotidine 20 MG Tab PO SCH (19:56)
[2020-10-11] MEDS: ROPINIROLE 0.5 MG PO SCH (19:57)
[2020-10-11] MEDS: WARFARIN 5 MG PO SCH (19:59)
[2020-10-12] MEDS: Omeprazole 20 MG Cap.CR PO SCH (06:05)
[2020-10-12] MEDS: PROBIOTIC GUMMIES PO SCH (06:05)
[2020-10-12] MEDS: Vitamin B Complex Tab PO SCH (08:19)
[2020-10-12] MEDS: Phytonadione 100 MCG Tab PO SCH (08:19)
[2020-10-12] MEDS: Acetaminophen 325 MG Tab PO SCH ×3 (08:19→20:11)
[2020-10-12] MEDS: Multivitamins with Iron/Calcium/Folic Acid/Minerals Tab PO SCH (08:19)
[2020-10-12] MEDS: Cholecalciferol (Vitamin D3) 25 MCG Tab PO SCH (08:19)
[2020-10-12] MEDS: FUROSEMIDE 20 MG PO SCH ×2 (08:20→12:24)
[2020-10-12] MEDS: Sertraline 100 MG Tab (OWN SUPPLY) PO SCH (08:20)
[2020-10-12] MEDS: ISOSORBIDE MONONITRATE 30 MG PO SCH (08:20)
[2020-10-12] MEDS: Metoprolol Succinate 25 MG Tab.ER (OWN SUPPLY) PO SCH (08:20)
[2020-10-12] MEDS: Gabapentin 100 MG Cap (OWN SUPPLY) PO SCH ×2 (08:21→12:23)
[2020-10-12] MEDS: Mineral Oil/Petrolatum,White Crm 454 GM Jar TOP SCH ×2 (08:23→20:13)
[2020-10-12] MEDS: BUSPIRONE 15 MG PO SCH ×3 (08:23→20:12)
[2020-10-12] MEDS: Melatonin 3 MG Tab PO SCH (20:11)
[2020-10-12] MEDS: Famotidine 20 MG Tab PO SCH (20:11)
[2020-10-12] MEDS: Gabapentin 300 MG Cap (OWN SUPPLY) PO SCH (20:12)
[2020-10-12] MEDS: ROPINIROLE 0.5 MG PO SCH (20:12)
[2020-10-12] MEDS: WARFARIN 5 MG PO SCH (20:12)
[2020-10-12] MEDS: Calcium Carbonate 750 MG Tab.Chew PO PRN (23:38)
[2020-10-13] MEDS: PROBIOTIC GUMMIES PO SCH (06:01)
[2020-10-13] MEDS: Omeprazole 20 MG Cap.CR PO SCH (06:01)
[2020-10-13] MEDS: Cholecalciferol (Vitamin D3) 25 MCG Tab PO SCH (08:08)
[2020-10-13] MEDS: Acetaminophen 325 MG Tab PO SCH ×3 (08:08→19:24)
[2020-10-13] MEDS: Phytonadione 100 MCG Tab PO SCH (08:08)
[2020-10-13] MEDS: Ferrous Sulfate 325 MG Tab PO SCH (08:08)
[2020-10-13] MEDS: Vitamin B Complex Tab PO SCH (08:08)
[2020-10-13] MEDS: Multivitamins with Iron/Calcium/Folic Acid/Minerals Tab PO SCH (08:08)
[2020-10-13] MEDS: Mineral Oil/Petrolatum,White Crm 454 GM Jar TOP SCH ×2 (08:09→19:27)
[2020-10-13] MEDS: Sertraline 100 MG Tab (OWN SUPPLY) PO SCH (08:10)
[2020-10-13] MEDS: Metoprolol Succinate 25 MG Tab.ER (OWN SUPPLY) PO SCH (08:10)
[2020-10-13] MEDS: ISOSORBIDE MONONITRATE 30 MG PO SCH (08:10)
[2020-10-13] MEDS: FUROSEMIDE 20 MG PO SCH ×2 (08:10→13:22)
[2020-10-13] MEDS: Gabapentin 100 MG Cap (OWN SUPPLY) PO SCH ×2 (08:11→13:20)
[2020-10-13] MEDS: BUSPIRONE 15 MG PO SCH ×3 (08:11→19:25)
[2020-10-13] MEDS: Melatonin 3 MG Tab PO SCH (19:24)
[2020-10-13] MEDS: Famotidine 20 MG Tab PO SCH (19:24)
[2020-10-13] MEDS: ROPINIROLE 0.5 MG PO SCH (19:25)
[2020-10-13] MEDS: WARFARIN 5 MG PO SCH (19:25)
[2020-10-13] MEDS: Gabapentin 300 MG Cap (OWN SUPPLY) PO SCH (19:26)
[2020-10-14] MEDS: PROBIOTIC GUMMIES PO SCH (06:15)
[2020-10-14] MEDS: Omeprazole 20 MG Cap.CR PO SCH (06:15)
[2020-10-14] MEDS: Multivitamins with Iron/Calcium/Folic Acid/Minerals Tab PO SCH (08:39)
[2020-10-14] MEDS: Vitamin B Complex Tab PO SCH (08:39)
[2020-10-14] MEDS: Acetaminophen 325 MG Tab PO SCH ×3 (08:39→20:10)
[2020-10-14] MEDS: Cholecalciferol (Vitamin D3) 25 MCG Tab PO SCH (08:39)
[2020-10-14] MEDS: Phytonadione 100 MCG Tab PO SCH (08:40)
[2020-10-14] MEDS: Gabapentin 100 MG Cap (OWN SUPPLY) PO SCH ×2 (08:40→12:07)
[2020-10-14] MEDS: BUSPIRONE 15 MG PO SCH ×3 (08:41→20:11)
[2020-10-14] MEDS: Sertraline 100 MG Tab (OWN SUPPLY) PO SCH (08:41)
[2020-10-14] MEDS: ISOSORBIDE MONONITRATE 30 MG PO SCH (08:41)
[2020-10-14] MEDS: Mineral Oil/Petrolatum,White Crm 454 GM Jar TOP SCH ×2 (08:42→20:12)
[2020-10-14] MEDS: Metoprolol Succinate 25 MG Tab.ER (OWN SUPPLY) PO SCH (08:42)
[2020-10-14] MEDS: FUROSEMIDE 20 MG PO SCH ×2 (08:42→12:07)
[2020-10-14] MEDS: Gabapentin 300 MG Cap (OWN SUPPLY) PO SCH (20:09)
[2020-10-14] MEDS: Famotidine 20 MG Tab PO SCH (20:10)
[2020-10-14] MEDS: Melatonin 3 MG Tab PO SCH (20:10)
[2020-10-14] MEDS: ROPINIROLE 0.5 MG PO SCH (20:11)
[2020-10-14] MEDS: WARFARIN 5 MG PO SCH (20:11)
[2020-10-15] MEDS: Omeprazole 20 MG Cap.CR PO SCH (06:12)
[2020-10-15] MEDS: Cholecalciferol (Vitamin D3) 25 MCG Tab PO SCH (07:20)
[2020-10-15] MEDS: PROBIOTIC GUMMIES PO SCH (07:20)
[2020-10-15] MEDS: Acetaminophen 325 MG Tab PO SCH ×3 (07:20→20:13)
[2020-10-15] MEDS: Multivitamins with Iron/Calcium/Folic Acid/Minerals Tab PO SCH (07:20)
[2020-10-15] MEDS: BUSPIRONE 15 MG PO SCH ×3 (07:21→20:11)
[2020-10-15] MEDS: Gabapentin 100 MG Cap (OWN SUPPLY) PO SCH ×2 (07:21→12:29)
[2020-10-15] MEDS: Vitamin B Complex Tab PO SCH (07:21)
[2020-10-15] MEDS: Phytonadione 100 MCG Tab PO SCH (07:21)
[2020-10-15] MEDS: Ferrous Sulfate 325 MG Tab PO SCH (07:21)
[2020-10-15] MEDS: Metoprolol Succinate 25 MG Tab.ER (OWN SUPPLY) PO SCH (07:22)
[2020-10-15] MEDS: Sertraline 100 MG Tab (OWN SUPPLY) PO SCH (07:22)
[2020-10-15] MEDS: ISOSORBIDE MONONITRATE 30 MG PO SCH (07:22)
[2020-10-15] MEDS: FUROSEMIDE 20 MG PO SCH ×2 (07:22→12:29)
[2020-10-15] MEDS: Mineral Oil/Petrolatum,White Crm 454 GM Jar TOP SCH ×2 (07:23→20:15)
[2020-10-15] MEDS: Melatonin 3 MG Tab PO SCH (20:11)
[2020-10-15] MEDS: ROPINIROLE 0.5 MG PO SCH (20:11)
[2020-10-15] MEDS: Gabapentin 300 MG Cap (OWN SUPPLY) PO SCH (20:11)
[2020-10-15] MEDS: WARFARIN 5 MG PO SCH (20:11)
[2020-10-15] MEDS: Famotidine 20 MG Tab PO SCH (20:12)
[2020-10-16] MEDS: Omeprazole 20 MG Cap.CR PO SCH (06:28)
[2020-10-16] MEDS: PROBIOTIC GUMMIES PO SCH (06:28)
[2020-10-16] MEDS: Acetaminophen 325 MG Tab PO SCH ×3 (07:27→20:16)
[2020-10-16] MEDS: Gabapentin 100 MG Cap (OWN SUPPLY) PO SCH ×2 (07:27→12:16)
[2020-10-16] MEDS: Cholecalciferol (Vitamin D3) 25 MCG Tab PO SCH (07:27)
[2020-10-16] MEDS: Vitamin B Complex Tab PO SCH (07:28)
[2020-10-16] MEDS: Sertraline 100 MG Tab (OWN SUPPLY) PO SCH (07:28)
[2020-10-16] MEDS: Phytonadione 100 MCG Tab PO SCH (07:28)
[2020-10-16] MEDS: Multivitamins with Iron/Calcium/Folic Acid/Minerals Tab PO SCH (07:28)
[2020-10-16] MEDS: Mineral Oil/Petrolatum,White Crm 454 GM Jar TOP SCH ×2 (07:28→20:22)
[2020-10-16] MEDS: ISOSORBIDE MONONITRATE 30 MG PO SCH (07:28)
[2020-10-16] MEDS: BUSPIRONE 15 MG PO SCH ×3 (07:29→20:21)
[2020-10-16] MEDS: FUROSEMIDE 20 MG PO SCH ×2 (07:29→12:18)
[2020-10-16] MEDS: Metoprolol Succinate 25 MG Tab.ER (OWN SUPPLY) PO SCH (07:29)
[2020-10-16] MEDS: Famotidine 20 MG Tab PO SCH (20:17)
[2020-10-16] MEDS: Melatonin 3 MG Tab PO SCH (20:17)
[2020-10-16] MEDS: Gabapentin 300 MG Cap (OWN SUPPLY) PO SCH (20:18)
[2020-10-16] MEDS: ROPINIROLE 0.5 MG PO SCH (20:20)
[2020-10-16] MEDS: WARFARIN 5 MG PO SCH (20:21)
[2020-10-17] MEDS: Omeprazole 20 MG Cap.CR PO SCH (06:12)
[2020-10-17] MEDS: PROBIOTIC GUMMIES PO SCH (06:13)
[2020-10-17] MEDS: Gabapentin 100 MG Cap (OWN SUPPLY) PO SCH ×2 (07:50→13:27)
[2020-10-17] MEDS: Vitamin B Complex Tab PO SCH (07:52)
[2020-10-17] MEDS: Cholecalciferol (Vitamin D3) 25 MCG Tab PO SCH (07:52)
[2020-10-17] MEDS: Acetaminophen 325 MG Tab PO SCH ×3 (07:52→19:57)
[2020-10-17] MEDS: Phytonadione 100 MCG Tab PO SCH (07:52)
[2020-10-17] MEDS: Ferrous Sulfate 325 MG Tab PO SCH (07:52)
[2020-10-17] MEDS: FUROSEMIDE 20 MG PO SCH ×2 (07:53→13:28)
[2020-10-17] MEDS: ISOSORBIDE MONONITRATE 30 MG PO SCH (07:54)
[2020-10-17] MEDS: Metoprolol Succinate 25 MG Tab.ER (OWN SUPPLY) PO SCH (07:54)
[2020-10-17] MEDS: Sertraline 100 MG Tab (OWN SUPPLY) PO SCH (07:54)
[2020-10-17] MEDS: Mineral Oil/Petrolatum,White Crm 454 GM Jar TOP SCH ×2 (07:55→20:00)
[2020-10-17] MEDS: BUSPIRONE 15 MG PO SCH ×3 (07:55→19:58)
[2020-10-17] MEDS: Multivitamins with Iron/Calcium/Folic Acid/Minerals Tab PO SCH (07:57)
[2020-10-17] MEDS: Melatonin 3 MG Tab PO SCH (19:56)
[2020-10-17] MEDS: Famotidine 20 MG Tab PO SCH (19:57)
[2020-10-17] MEDS: WARFARIN 5 MG PO SCH (19:59)
[2020-10-17] MEDS: ROPINIROLE 0.5 MG PO SCH (19:59)
[2020-10-17] MEDS: Gabapentin 300 MG Cap (OWN SUPPLY) PO SCH (19:59)
[2020-10-18] MEDS: PROBIOTIC GUMMIES PO SCH (06:22)
[2020-10-18] MEDS: Omeprazole 20 MG Cap.CR PO SCH (06:22)
[2020-10-18] MEDS: Gabapentin 100 MG Cap (OWN SUPPLY) PO SCH ×2 (07:28→12:05)
[2020-10-18] MEDS: BUSPIRONE 15 MG PO SCH ×2 (07:29→12:05)
[2020-10-18] MEDS: Metoprolol Succinate 25 MG Tab.ER (OWN SUPPLY) PO SCH (07:29)
[2020-10-18] MEDS: Sertraline 100 MG Tab (OWN SUPPLY) PO SCH (07:29)
[2020-10-18] MEDS: FUROSEMIDE 20 MG PO SCH ×2 (07:29→12:06)
[2020-10-18] MEDS: ISOSORBIDE MONONITRATE 30 MG PO SCH (07:29)
[2020-10-18] MEDS: Mineral Oil/Petrolatum,White Crm 454 GM Jar TOP SCH (07:30)
[2020-10-18] MEDS: Multivitamins with Iron/Calcium/Folic Acid/Minerals Tab PO SCH (07:30)
[2020-10-18] MEDS: Cholecalciferol (Vitamin D3) 25 MCG Tab PO SCH (07:30)
[2020-10-18 07:31] VITALS: BP 127/75; PULSE 73
[2020-10-18] MEDS: Vitamin B Complex Tab PO SCH (07:31)
[2020-10-18] MEDS: Acetaminophen 325 MG Tab PO SCH ×2 (07:31→12:05)
[2020-10-18] MEDS: Phytonadione 100 MCG Tab PO SCH (07:31)
--- NOTE | 2020-10-18 08:57 | PCM.DCSUM1 ---
Discharge Summary - Hospital Course Free Text/Narrative:: Margot is an 85yoF who originally presented to [facility] for long-term stay in the setting of FTT and need for assistance in daily activities. She has remained relatively stable throughout her time here. She continues to be fairly independent at baseline but staff will do a stand-by assist with her using a walker with her instability. We have been dealing with chronic stasis ulcers of her lower extremities. left has been healed for some time however the one on the right continues to bother; we had placed a referral to the wound clinic in [place] but she has not yet gone. INR did fluctuate a bit this spring when she was on antibiotics for UTIs but leveled out after; she was initiated on Vitamin K as a stabilizer at that time and has done well with this. Mood has been a bit down which is part of what is prompting the move to a SNF; med adju stments have been well-tolerated and the patient is looking forward to more social interaction. We will plan to discharge her to the SNF with her current medication list and therapy plans. - Discharge Data Discharge Date: 10/18/20 Discharge Disposition: DC/Tfer to SNF 03 Condition: Good - Referral to Home Health Primary Care Physician: Arsenio Garcia MD - Discharge Diagnosis/Problem(s) (1) Need for assistance with personal care SNOMED Code(s): 53068313340619298 ICD Code: Z74.1 - NEED FOR ASSISTANCE WITH PERSONAL CARE Status: Acute Current Visit: No (2) Depression SNOMED Code(s): 28834094 ICD Code: F32.9 - MAJOR DEPRESSIVE DISORDER, SINGLE EPISODE, UNSPECIFIED Status: Chronic Current Visit: No (3) Anxiety SNOMED Code(s): 17363803 ICD Code: F41.9 - ANXIETY DISORDER, UNSPECIFIED Status: Chronic Current Visit: No (4) CKD (chronic kidney disease) SNOMED Code(s): 819381300 ICD Code: N18.9 - CHRONIC KIDNEY DISEASE, UNSPECIFIED Status: Chronic Current Visit: No (5) COPD (chronic obstructive pulmonary disease) SNOMED Code(s): 21631517 ICD Code: J44.9 - CHRONIC OBSTRUCTIVE PULMONARY DISEASE, UNSPECIFIED Status: Chronic Current Visit: No (6) Diastolic HF (heart failure) SNOMED Code(s): 899610529 ICD Code: I50.30 - UNSPECIFIED DIASTOLIC (CONGESTIVE) HEART FAILURE Status: Chronic Current Visit: No (7) GERD (gastroesophageal reflux disease) SNOMED Code(s): 465351267 ICD Code: K21.9 - GASTRO-ESOPHAGEAL REFLUX DISEASE WITHOUT ESOPHAGITIS Status: Chronic Current Visit: No (8) Hypertension SNOMED Code(s): 83135550 ICD Code: I10 - ESSENTIAL (PRIMARY) HYPERTENSION Status: Chronic Current Visit: No - Patient Summary/Data Consults: Consultations 01/22/20 13:59 Consult to Case Management/Transportation Planner [CONS] Routine 05/12/20 12:36 OT Evaluation and Treatment [CONS] Routine 07/29/20 10:46 PT Evaluation and Treatment [CONS] Routine 08/18/20 10:53 Consult to Speech Language Pathology [FORESTRY CONTRACTOR Evaluation and Treatment] [CONS] Routine - Discharge Plan *PRESCRIPTION DRUG MONITORING PROGRAM REVIEWED*: No *COPY OF PRESCRIPTION DRUG MONITORING REPORT IN PATIENT MADAN: No Prescriptions/Med Rec: Famotidine [Pepcid] 20 mg IV BEDTIME #30 sdv Home Medications: Home Meds Nitroglycerin [Nitrostat] 0.4 mg SL ASDIRECTED PRN 09/29/14 [History] Sertraline [Zoloft] 100 mg PO DAILY 09/29/14 [History] rOPINIRole HCl [Requip] 0.5 mg PO BEDTIME 09/30/14 [History] Calcium Carbonate [Tums Extra Strength] 750 mg PO TID PRN 03/02/16 [History] Docusate Sodium [Colace] 100 mg PO DAILY PRN 09/07/17 [History] polyethylene glycoL 3350 [MiraLAX] 17 gm PO DAILY PRN 09/07/17 [History] Vitamin B Complex 1 tab PO DAILY 02/26/20 [History] Acetaminophen [Tylenol Extra Strength] 1,000 mg PO BID PRN tablet 10/18/20 [Rx] Acetaminophen [Tylenol] 650 mg PO TID@0800,1300,2000 tablet 10/18/20 [Rx] Cholecalciferol (Vitamin D3) [Vitamin D3] 50 mcg PO DAILY tablet 10/18/20 [Rx] Docusate Sodium/Sennosides [Senna Plus] 1 tab PO DAILY PRN tablet 10/18/20 [Rx] Famotidine [Pepcid] 20 mg IV BEDTIME #30 sdv 10/18/20 [Rx] Ferrous Sulfate 325 mg PO Q48H tablet 10/18/20 [Rx] Furosemide [Lasix] 20 mg PO BID@0800,1300 tablet 10/18/20 [Rx] Gabapentin [Neurontin] 100 mg PO BID@0800,1300 cap 10/18/20 [Rx] Gabapentin [Neurontin] 300 mg PO BEDTIME cap 10/18/20 [Rx] Isosorbide Mononitrate [Imdur] 30 mg PO DAILY tab.er 10/18/20 [Rx] Loperamide [Imodium] 2 mg PO Q12H PRN cap 10/18/20 [Rx] Melatonin 6 mg PO BEDTIME tablet 10/18/20 [Rx] Metoprolol Succinate [Toprol XL] 25 mg PO DAILY tab.er 10/18/20 [Rx] Miconazole [Desenex 2%] 0 gm TOP BID PRN cont 10/18/20 [Rx] Mineral Oil/Petrolatum,White [Minerin] 0 gm TOP BID jar 10/18/20 [Rx] Omeprazole 20 mg PO DAILY@0700 cap.cr 10/18/20 [Rx] Ondansetron [Zofran ODT] 4 mg PO Q4H PRN tab.dis 10/18/20 [Rx] Phytonadione [Vitamin K] 100 mcg PO DAILY tablet 10/18/20 [Rx] Probiotic Gummies 2 each PO DAILY@0700 10/18/20 [Rx] Vitamin B Complex 1 each PO DAILY tablet 10/18/20 [Rx] Warfarin [Coumadin] 2.5 mg PO MoWeFr@1999 tablet 10/18/20 [Rx] Warfarin [Coumadin] 5 mg PO SuTuThSa@1999 tablet 10/18/20 [Rx] busPIRone [Buspar] 7.5 mg PO TID@0800,1300,1999 tablet 10/18/20 [Rx] rOPINIRole [Requip] 0.5 mg PO BEDTIME tablet 10/18/20 [Rx] Patient Handouts: How to Increase Your Level of Physical Activity - Discharge Summary/Plan Comment DC Time >30 min.: No - Patient Data Vitals - Most Recent: Last Vital Signs Temp 98 F 10/18/20 06:34 Pulse 73 10/18/20 07:29 Resp 16 10/01/20 05:59 BP 127/75 10/18/20 07:29 Pulse Ox 94 L 10/15/20 08:00 Weight - Most Recent: 177 lb 0.499 oz I&O - Last 24 hours: Intake & Output 10/17/20 10/18/20 10/18/20 22:59 06:59 14:59 Intake Total 180 180 Balance 180 180 Med Orders - Current: Current Medications Acetaminophen (Acetaminophen 500 Mg Tab) 1,000 mg PO BID PRN PRN Reason: Pain/Fever Last Admin: 08/08/20 21:46 Dose: 1,000 mg Documented by: Acetaminophen (Acetaminophen 325 Mg Tab) 650 mg PO TID@0800,1300,1999 [facility] Last Admin: 10/18/20 07:31 Dose: 650 mg Documented by: Buspirone HCl (Buspirone 15 Mg Tab (Own Supply)) 7.5 mg PO TID@0800,1300,1999 [facility] Last Admin: 10/18/20 07:29 Dose: 7.5 mg Documented by: Calcium Carbonate/Glycine (Calcium Carbonate 750 Mg Tab.Chew) 750 mg PO TID PRN PRN Reason: Dyspepsia Last Admin: 10/12/20 23:38 Dose: 750 mg Documented by: Cholecalciferol (Cholecalciferol (Vitamin D3) 25 Mcg Tab) 50 mcg PO DAILY [facility] Last Admin: 10/18/20 07:30 Dose: 50 mcg Documented by: Docusate Sodium (Docusate Sodium 100 Mg Cap) 100 mg PO DAILY PRN PRN Reason: Constipation Famotidine (Famotidine 20 Mg Tab) 20 mg PO BEDTIME [facility] Last Admin: 10/17/20 19:57 Dose: 20 mg Documented by: Ferrous Sulfate (Ferrous Sulfate 325 Mg Tab) 325 mg PO Q48H [facility] Last Admin: 10/17/20 07:52 Dose: 325 mg Documented by: Furosemide (Furosemide 20 Mg Tab (Own Suppy)) 20 mg PO BID@0800,1300 [facility] Last Admin: 10/18/20 07:29 Dose: 20 mg Documented by: Gabapentin (Gabapentin 100 Mg Cap (Own Supply)) 100 mg PO BID@0800,1300 [facility] Last Admin: 10/18/20 07:28 Dose: 100 mg Documented by: Gabapentin (Gabapentin 300 Mg Cap (Own Supply)) 300 mg PO BEDTIME [facility] Last Admin: 10/17/20 19:59 Dose: 300 mg Documented by: Isosorbide Mononitrate (Isosorbide Mononitrate 30 Mg Tab.Er (Own Supply)) 30 mg PO DAILY [facility] Last Admin: 10/18/20 07:29 Dose: 30 mg Documented by: Loperamide HCl (Loperamide 2 Mg Cap) 2 mg PO Q12H PRN PRN Reason: Diarrhea Last Admin: 08/04/20 09:39 Dose: 2 mg Documented by: Melatonin (Melatonin 3 Mg Tab) 6 mg PO BEDTIME [facility] Last Admin: 10/17/20 19:56 Dose: 6 mg Documented by: Metoprolol Succinate (Metoprolol Succinate 25 Mg Tab.Er (Own Supply)) 25 mg PO DAILY [facility] Last Admin: 10/18/20 07:29 Dose: 25 mg Documented by: Miconazole (Miconazole 2% Top Powder 45 Gm Container) 0 gm TOP BID PRN PRN Reason: RASH UNDER BILATERAL BREASTS Last Admin: 08/12/20 20:26 Dose: 1 applic Documented by: Mineral Oil/White Petrolatum (Mineral Oil/Petrolatum,White Crm 454 Gm Jar) 0 gm TOP BID [facility] Last Admin: 10/18/20 07:30 Dose: 1 applic Documented by: Multivitamins/Minerals (Multivitamins With Iron/Calcium/Folic Acid/Minerals Tab) 1 tab PO DAILY [facility] Last Admin: 10/18/20 07:30 Dose: 1 tab Documented by: Nitroglycerin (Nitroglycerin 0.4 Mg Tab.Sl (Own Supply)) 0.4 mg SL Q5M PRN PRN Reason: Chest Pain Last Admin: 07/02/20 11:11 Dose: 0.4 mg Documented by: Probiotic Gummies 2 each PO DAILY@0700 [facility] Last Admin: 10/18/20 06:22 Dose: 2 each Documented by: Omeprazole (Omeprazole 20 Mg Cap.Cr) 20 mg PO DAILY@0700 [facility] Last Admin: 10/18/20 06:22 Dose: 20 mg Documented by: Ondansetron HCl (Ondansetron 4 Mg Tab.Dis (Own Supply)) 4 mg PO Q4H PRN PRN Reason: Nausea/Vomiting Last Admin: 08/16/20 18:25 Dose: 4 mg Documented by: Phytonadione (Phytonadione 100 Mcg Tab) 100 mcg PO DAILY [facility] Last Admin: 10/18/20 07:31 Dose: 100 mcg Documented by: Polyethylene Glycol (Polyethylene Glycol 3350 Powder 17 Gm Packet) 17 gm PO DAILY PRN PRN Reason: Constipation Ropinirole HCl (Ropinirole 0.5 Mg Tab (Own Supply)) 0.5 mg PO BEDTIME [facility] Last Admin: 10/17/20 19:59 Dose: 0.5 mg Documented by: Senna/Docusate Sodium (Docusate Sodium/Sennosides 50-8.6 Mg Tab) 1 tab PO DAILY PRN PRN Reason: Constipation Sertraline HCl (Sertraline 100 Mg Tab (Own Supply)) 100 mg PO DAILY [facility] Last Admin: 10/18/20 07:29 Dose: 100 mg Documented by: Vitamin B Complex (Vitamin B Complex Tab) 1 each PO DAILY [facility] Last Admin: 10/18/20 07:31 Dose: 1 each Documented by: Warfarin Sodium (Warfarin 5 Mg Tab (Own Supply)) 5 mg PO SuTuThSa@1999 [facility] Last Admin: 10/17/20 19:59 Dose: 5 mg Documented by: Warfarin Sodium (Warfarin 5 Mg Tab (Own Supply)) 2.5 mg PO MoWeFr@1999 [facility] Last Admin: 10/15/20 20:11 Dose: 2.5 mg Documented by: Discontinued Medications Buspirone HCl (Buspirone 5 Mg Tab (Own Supply)) 5 mg PO TID@0800,1299,1999 [facility] Last Admin: 07/21/20 09:19 Dose: Not Given Documented by: Buspirone HCl (Buspirone 5 Mg Tab (Own Supply)) 7.5 mg PO TID@0800,1299,1999 [facility] Stop: 08/11/20 13:01 Last Admin: 08/11/20 13:55 Dose: 7.5 mg Documented by: Buspirone HCl (Buspirone 5 Mg Tab (Own Supply)) 5 mg PO BID [facility] Last Admin: 06/21/20 08:34 Dose: 5 mg Documented by: Cephalexin (Cephalexin 500 Mg Cap (Own Supply)) 500 mg PO Q6HR [facility] Stop: 09/07/20 08:16 Last Admin: 09/01/20 06:39 Dose: 500 mg Documented by: Cephalexin (Cephalexin 500 Mg Cap (Own Supply)) 500 mg PO TID@0800,1400,1999 [facility] Stop: 09/07/20 20:00 Last Admin: 09/03/20 08:06 Dose: 500 mg Documented by: Cholecalciferol (Cholecalciferol (Vitamin D3) 10 Mcg Tab) 40 mcg PO DAILY [facility] Last Admin: 09/01/20 13:53 Dose: Not Given Documented by: Ciprofloxacin (Ciprofloxacin 500 Mg Tab) 500 mg PO Q24H [facility] Stop: 03/04/20 20:01 Last Admin: 03/04/20 19:24 Dose: 500 mg Documented by: Ciprofloxacin (Ciprofloxacin 500 Mg Tab (Own Supply)) 500 mg PO BID@0700,1999 [facility] Stop: 09/12/20 20:01 Last Admin: 09/12/20 19:44 Dose: 500 mg Documented by: Famotidine (Famotidine 20 Mg Tab) 20 mg PO DAILY [facility] Last Admin: 02/20/20 08:14 Dose: 20 mg Documented by: Furosemide (Furosemide 20 Mg Tab (Own Supply)) 20 mg PO DAILY@1200 [facility] Stop: 04/18/20 12:01 Last Admin: 04/18/20 12:16 Dose: 20 mg Documented by: Furosemide (Furosemide 20 Mg Tab) 20 mg PO BIDDIURETIC [facility] Stop: 08/13/20 23:59 Furosemide (Furosemide 20 Mg Tab (Own Supply)) 20 mg PO DAILY [facility] Last Admin: 08/16/20 08:41 Dose: 20 mg Documented by: Furosemide (Furosemide 20 Mg Tab) 20 mg PO 0800,1400 [facility] Stop: 08/13/20 14:01 Last Admin: 08/11/20 13:55 Dose: 20 mg Documented by: Furosemide (Furosemide 20 Mg Tab (Own Supply)) 20 mg PO BID@0800,1400 [facility] Stop: 08/13/20 14:01 Last Admin: 08/13/20 13:20 Dose: 20 mg Documented by: Furosemide (Furosemide 20 Mg Tab (Own Supply)) 20 mg PO DAILY [facility] Last Admin: 08/08/20 08:04 Dose: 20 mg Documented by: Lactobacillus Rhamnosus (Lactobacillus Rhamnosus Gg (Probiotic) Cap) 1 cap PO DAILY [facility] Last Admin: 08/01/20 08:32 Dose: 1 cap Documented by: Lactobacillus Rhamnosus (Lactobacillus Rhamnosus Gg (Probiotic) Cap) 1 cap PO DAILY@0700 [facility] Last Admin: 09/01/20 06:38 Dose: 1 cap Documented by: Nitrofurantoin Macrocrystals (Nitrofurantoin Monohydrate/Macrocrystalline 100 Mg Cap) 100 mg PO BID [facility] Stop: 03/07/20 08:31 Last Admin: 02/29/20 09:00 Dose: 100 mg Documented by: Nitrofurantoin Macrocrystals (Nitrofurantoin Monohydrate/Macrocrystalline 100 Mg Cap) 100 mg PO BID [facility] Stop: 08/04/20 20:01 Last Admin: 08/04/20 19:59 Dose: 100 mg Documented by: Probiotic Gummies 2 each PO BID@ [facility] Stop: 09/29/20 22:00 Last Admin: 09/19/20 09:51 Dose: 2 each Documented by: Probiotic Gummies 2 each PO BID@ [facility] Stop: 09/29/20 20:01 Last Admin: 09/29/20 19:27 Dose: 2 each Documented by: Omeprazole (Omeprazole 20 Mg Cap.Cr) 20 mg PO DAILY [facility] Last Admin: 02/20/20 08:14 Dose: 20 mg Documented by: Ondansetron HCl (Ondansetron 4 Mg Tab.Dis) 4 mg PO Q4H PRN PRN Reason: Nausea/Vomiting Warfarin Sodium (Warfarin 5 Mg Tab (Own Supply)) 2.5 mg PO ONETIME ONE Stop: 09/09/20 10:01 Last Admin: 09/09/20 11:11 Dose: 2.5 mg Documented by: Warfarin Sodium (Warfarin 5 Mg Tab (Own Supply)) 5 mg PO ONETIME ONE Stop: 09/13/20 15:01 Last Admin: 09/13/20 16:57 Dose: 5 mg Documented by: Warfarin Sodium (Warfarin 5 Mg Tab (Own Med)) 5 mg PO SuMoTuWeFrSa@1999 [facility] Last Admin: 07/04/20 19:22 Dose: 5 mg Documented by: Warfarin Sodium (Warfarin 5 Mg Tab (Own Med)) 2.5 mg PO Th@1999 [facility] Last Admin: 07/01/20 19:28 Dose: 2.5 mg Documented by: - Exam Quality Assessment: Reports: Supplemental Oxygen General: Reports: Alert, Oriented HEENT: Reports: EOMI, Mucous Membr. Moist/[place] Neck: Reports: Supple Lungs: Reports: Clear to Auscultation, Normal Respiratory Effort Cardiovascular: Reports: Regular Rate, Regular Rhythm GI/Abdominal Exam: Normal Bowel Sounds, Soft, Non-Tender Extremities: Pedal Edema (1+ to the lower joshi) Skin: Reports: Warm, Dry Wound/Incisions: Reports: Dressing Dry and Intact (right lower extremity superficial ulcer healing slowly but well) Neurological: Reports: No New Focal Deficit Psy/Mental Status: Reports: Alert, Normal Affect, Normal Mood
== END 2020-10-18 13:15 | DRG 641 ==
LOC: VM.MS 14:01
PROVIDERS: ADMIT Family Medicine; ATTEND Family Medicine
PROC: 0HBBXZZ Excision of Right Upper Arm Skin, External Approach (ICD-10-PCS; principal; 2020-08-06)
DX: R62.7 Adult failure to thrive (principal); I50.32 Chronic diastolic (congestive) heart failure; I13.0 Hypertensive heart and chronic kidney disease with heart failure and stage 1 through stage 4 chronic kidney disease, or unspecified chronic kidney disease; J96.10 Chronic respiratory failure, unspecified whether with hypoxia or hypercapnia; E87.0 Hyperosmolality and hypernatremia; N30.01 Acute cystitis with hematuria; R29.898 Other symptoms and signs involving the musculoskeletal system; Z74.1 Need for assistance with personal care; S50.311A Abrasion of right elbow, initial encounter; W19.XXXA Unspecified fall, initial encounter; F32.9 Major depressive disorder, single episode, unspecified; F41.9 Anxiety disorder, unspecified; J44.9 Chronic obstructive pulmonary disease, unspecified; K21.9 Gastro-esophageal reflux disease without esophagitis; G25.81 Restless legs syndrome; G62.9 Polyneuropathy, unspecified; E66.9 Obesity, unspecified; M81.0 Age-related osteoporosis without current pathological fracture; E04.9 Nontoxic goiter, unspecified; M10.9 Gout, unspecified; D64.9 Anemia, unspecified; H54.7 Unspecified visual loss; N18.30 Chronic kidney disease, stage 3 unspecified; M19.90 Unspecified osteoarthritis, unspecified site; M54.9 Dorsalgia, unspecified; G89.29 Other chronic pain; I83.009 Varicose veins of unspecified lower extremity with ulcer of unspecified site; K59.00 Constipation, unspecified; G47.00 Insomnia, unspecified; Z79.899 Other long term (current) drug therapy; Z79.01 Long term (current) use of anticoagulants; Z88.8 Allergy status to other drugs, medicaments and biological substances; Z86.718 Personal history of other venous thrombosis and embolism; Z98.49 Cataract extraction status, unspecified eye; Z90.49 Acquired absence of other specified parts of digestive tract; Z85.3 Personal history of malignant neoplasm of breast; B96.5 Pseudomonas (aeruginosa) (mallei) (pseudomallei) as the cause of diseases classified elsewhere
CPT/HCPCS: 36415; 71046; 80048; 80053; 81001; 81003; 82550; 85025; 85027; 85610; 85652; 86140; 87070; 87077; 87086; 87088; 87186; 92526-GN; 92610-GN; 97110-GO; 97110-GP; 97116-GP; 97162-GP; 97165-GO; A9270-GY; U0002